=== PATIENT | male | born 1980 | race Caucasian/White ===

== ENCOUNTER 2023-06-13 07:13 | Outpatient (OUT) | payer BC, SELFPAY ==
--- NOTE | 2023-06-13 07:27 | MR_ITS ---
[address] [address] Patient Name: LUÍS MORAN MRN: [id number] date: 1980 Sex: M Assigned Patient Location: MRI Current Patient Location: MRI Accession/Order Number: [id number] Exam Date: 06/13/2023 07:38 Report Date: 06/13/2023 08:29 At the request of: MARCEL BARRERA Procedure: MR lumbar spine wo con EXAM: MR lumbar spine wo con HISTORY: Degenerative Disc Disease Lumbar M51.36 COMPARISON: MRI lumbar spine 04/20/2021. TECHNIQUE: Multiplanar multisequence MR imaging of the lumbar spine was performed without intravenous contrast. FINDINGS: Alignment: Trace retrolisthesis of L3 on L4, minimally progressed from prior. Vertebrae: Vertebral body heights are maintained. No marrow signal abnormalities to suggest neoplasm. Conus medullaris: Conus medullaris terminates in normal position at L1. Normal signal and contour. Degenerative changes: T12-L1: No substantial canal or foraminal stenosis. L1-L2: No substantial canal or foraminal stenosis. L2-L3: No substantial canal or foraminal stenosis. L3-L4: Disc desiccation with mild disc height loss. Tiny left subarticular protrusion which contacts but does not displace or deform the descending left L4 nerve root. Minimal left subarticular recess stenosis. No substantial canal stenosis. Foramina are patent. L4-L5: Disc desiccation with mild to moderate disc height loss. Prior left laminectomy. Tiny left central protrusion. No substantial canal stenosis. The right foramen is patent. Similar mild left foraminal stenosis L5-S1: Similar minimal disc bulge with unchanged right subarticular/foraminal protrusion. Disc does contact the descending right S1 nerve root. No substantial canal stenosis. Moderate right foraminal stenosis at the left foramen is patent Upper Sacrum: No focal lesion identified. Additional comments: Visualized soft tissues of the abdomen are unremarkable. MR/MR lumbar spine wo con IMPRESSION: 1. Interval increase in size of left small subarticular disc protrusion at L3-L4 which contacts but does not displace or deform the descending left L4 nerve root. 2. Stable appearance of right subarticular/foraminal protrusion L5-S1 with disc contacting the right descending S1 nerve root. Moderate right foraminal stenosis. Electronically authenticated by: SIGIFREDO LASSITER Date: 06/13/2023 08:29
== END 2023-06-13 07:14 | disposition home or self-care (01) ==
LOC: MRI 07:15
PROVIDERS: PCP Internal Medicine; Visit Provider Nurse Practitioner Family
DX: M51.36 Other intervertebral disc degeneration, lumbar region (principal); M51.26 Other intervertebral disc displacement, lumbar region
CPT/HCPCS: 72148

== ENCOUNTER 2023-07-02 08:09 | Outpatient (OUT) | payer BC, SELFPAY ==
--- OUTSIDE RECORDS SUMMARY | 2023-07-02 08:12 | XMS_ITS | CCD ---
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 Scientist Name Role Phone Jennifer Muller Unavailable Unavailable Juan Francisco, Maroun Tanus Unavailable Unavailable Adelita Epperson Unavailable Unavailable Juan Francisco, Maroun Tanus Unavailable Unavailable Pelon Head Unavailable Unavail able Adelita Epperson Unavailable Unavailable Juan Francisco, Maroun Tanus Unavailable Unavailable Juan Francisco, Maroun Tanus Unavailable Unavailable Adelita Epperson Unavailable Unavailable ADELITA EPPERSON Primary Care Unavailable Adelita Epperson Primary Care Provider Adelita Epperson Primary Care Provider Dereck Morrow Attending Provider LAKSHMIPATHY ., NARENDRANATH Attending Mell vailable LAKSHMIPATHY ., NARENDRANATH Admitting Mlel vailable JOSE ROBERTO NGUYEN Consulting Unavailable DR ADELITA EPPERSON Primary Care Unavailable HUMAIRA LAO Unavailable LAKSHMIPATHY ., QUETA Consulting Mell vailable DR ADELITA EPPERSON Consulting Unavailable DR ADELITA EPPERSON Primary Care Unavailable LAKSHMIPATHY ., NARENDRANATH Admitting Mell vailable LAKSHMIPATHY ., NARENDRANATH Consulting Mell vailable LAKSHMIPATHY ., NARENDRANATH Attending Mell vailable LAKSHMIPATHY ., NARENDRANATH Attending Mell vailable LAKSHMIPATHY ., NARENDRANATH Admitting Mell vailable LAKSHMIPATHY ., QUETA Consulting Mell vailable DR ADELITA EPPERSON Primary Care Unavailable RUSSELL .SEAN Consulting Unavailable MEGHAN ., DR BERNARDO Tate Admitting Unavailable MEGHAN ., DR BERNARDO Tate Attending Unavailable DR ADELITA EPPERSON Primary Care Unavailable WELLS .SEAN Consulting Unavailable MEGHAN ., DR BERNARDO Tate Admitting Unavailable MEGHAN ., DR BERNARDO Tate Attending Unavailable ZHOU, DR UREÑA Primary Care Unavailable RUSSELL .SEAN Consulting Unavailable MEGHAN ., DR BERNARDO Tate Admitting Unavailable MEGHAN ., DR BERNARDO Tate Attending Unavailable ZHOU, DR UREÑA Primary Care Unavailable ZHOU, DR UREÑA Consulting Unavailable APLING, MARCEL Doherty Attending Unavailable ADELITA EPPERSON Referring Unavailable APLING, MARCEL Doherty Referring Unavailable SURJIT, ANTONIO Doherty Attending Unavailable APLING, MARCEL B Referring Unavailable SURJIT, ANTONIO Doherty Attending Unavailable APLING, MARCEL B Referring Unavailable SURJIT, ANTONIO Doherty Attending Unavailable APLING, MARCEL B Referring Unavailable SURJIT, ANTONIO Doherty Attending Unavailable APLING, MARCEL B Referring Unavailable SURJIT, ANTONIO Doherty Attending Unavailable APLING, MARCEL B Referring Unavailable SURJIT, ANTONIO Doherty Attending Unavailable APLING, MARCEL B Referring Unavailable SURJIT, ANTONIO Doherty Attending Unavailable APLING, MARCEL Doherty Referring Unavailable Adelita Epperson MD Primary Care Provider [phone] Unavailable Unavailable Unavailable Medications Current Medications Medication Drug Class(es) Dates Sig (Normalized) Sig (Original) acetaminophen 250 mg / aspirin 250 mg / caffeine 65 mg oral tablet (1 source) Platelet Aggregation Inhibitor, Nonsteroidal Anti-inflammatory Drug, Central Nervous System Stimulant, Methylxanthine Start: 03-28-2017 take 2 tablets by mouth every four to six hours Aspirin-Acetamino phen-Caffeine Active 2 TAB Oral EVERY 4-6 HOURS March 28, 2017 8:32am acetaminophen 325 mg / HYDROcodone bitartrate 5 mg oral tablet (1 source) Opioid Agonist Start: 05-27-2017 HYDROcodone-aceta minophen (NORCO) 5-325 MG per tablet Cannabinoids (medical cannabis) (1 source) Cannabinoids (medical cannabis) Medicinal Marijuana 0 Active ibuprofen 800 mg oral tablet (1 source) Nonsteroidal Anti-inflammatory Drug take 1 tablet by mouth every six hours as needed ibuprofen 800 MG tablet Take 800 mg by mouth every 6 (six) hours if needed. 0 Active naproxen 375 mg oral tablet (1 source) Nonsteroidal Anti-inflammatory Drug naproxen (NAPROSYN) 375 MG tablet Take 375 mg by mouth as needed for Pain 0 Active Problems Active Problems Problem Classification Problem Date Documented Date Episodic/Chronic Other connective tissue disease (1 source) Other muscle spasm; Translations: [OTHER MUSCLE SPASM] Onset: 07-26-2022 Episodic Other ear and sense organ disorders (1 source) Conductive hearing loss, unilateral, left ear, with unrestricted hearing on the contralateral side; Translations: [Conductive hearing loss, unilateral] Onset: 01-14-2017 02-24-2023 Chronic Other liver diseases (1 source) Nodule of liver; Translations: [Other specified diseases of liver] Onset: 11-01-2022 11-01-2022 Chronic Other nervous system disorders (1 source) Other chronic pain; Translations: [OTHER CHRONIC PAIN] Onset: 07-26-2022 Chronic Other nutritional; endocrine; and metabolic disorders (1 source) Morbid obesity; Translations: [Morbid (severe) obesity due to excess calories] Onset: 11-01-2022 11-01-2022 Chronic Spondylosis; intervertebral disc disorders; other back problems (20 sources) Lumbosacral spondylosis without myelopathy; Translations: [Spondylosis without myelopathy or radiculopathy, lumbar region] Onset: 01-24-2010 Resolved: 02-24-2023 06-24-2017 Chronic Unclassified (1 source) Condctv hear loss, uni, left ear, w unrestr hear cntra side / H90.12(ICD-10) Onset: 09-29-2017 Unclassified (1 source) Unspecified cholesteatoma, left ear / H71.92(ICD-10) Onset: 09-29-2017 Unclassified (1 source) LOW BACK PAIN, UNSPECIFIED; Translations: [LOW BACK PAIN, UNSPECIFIED] Onset: 04-02-2022 Past or Other Problems Problem Classification Problem Date Documented Da te Episodic/Chronic Esophageal disorders (1 source) Laryngopharyngeal reflux; Translations: [Gastro-esophageal reflux disease without esophagitis] Onset: 3 Resolved: 3 02-24-2023 Chronic Other diseases of veins and lymphatics (1 source) Lymphedema; Translations: [Lymphedema, not elsewhere classified] Onset: 9 Resolved: 3 02-24-2023 Chronic Other gastrointestinal disorders (1 source) Chronic constipation; Translations: [Other constipation] Onset: 0 Resolved: 3 02-24-2023 Episodic Other liver diseases (1 source) Elevated liver enzymes level; Translations: [Abnormal levels of other serum enzymes] Onset: 3 11-01-2022 Episodic Other nutritional; endocrine; and metabolic disorders (1 source) Body mass index 30+ - obesity; Translations: [Obesity, unspecified] Onset: 3 Resolved: 3 02-24-2023 Chronic Residual codes; unclassified (1 source) FH: premature coronary heart disease; Translations: [Family history of ischemic heart disease and other diseases of the circulatory system] Onset: 3 11-07-2022 Episodic Spondylosis; intervertebral disc disorders; other back problems (8 sources) Low back pain; Translations: [Muscle spasm of back] Onset: 2 Resolved: 3 Episodic Results Test Name Value Interpretation Reference Range Facility Complete Blood Counton 08-07 Erythrocyte distribution width (RBC) [Ratio] 13.0 % Normal 11.0-15.0 [facility] Comment on above: Performed By: #### L IPD, CBC, CMP #### [facility] [address], [place] [id number] Hematocrit (Bld) [Volume fraction] 46.2 % Normal 38.5-50.0 [facility] Comment on above: Performed By: #### L IPD, CBC, CMP #### [facility] [address], [place] [id number] Hemoglobin (Bld) [Mass/Vol] 15.6 g/dL Normal 13.0-17.1 [facility] Comment on above: Performed By: #### L IPD, CBC, CMP #### [facility] [address], [place] [id number] MCH (RBC) [Entitic mass] 29.8 pg Normal 27.0-33.0 [facility] Comment on above: Performed By: #### L IPD, CBC, CMP #### [facility] [address], [place] [id number] MCHC (RBC) [Mass/Vol] 33.8 g/dL Normal 32.0-36.0 [facility] Comment on above: Performed By: #### L IPD, CBC, CMP #### [facility] [address], [place] [id number] MCV (RBC) [Entitic vol] 88 fL Normal 80-100 [facility] Comment on above: Performed By: #### L IPD, CBC, CMP #### [facility] [address], [place] [id number] Platelet mean volume (Bld) [Entitic vol] 11.20 fL Normal 7.50-12.50 [facility] Comment on above: Performed By: #### L IPD, CBC, CMP #### [facility] [address], [place] [id number] Platelets (Bld) [#/Vol] 231 10*3/uL Normal 140-400 [facility] Comment on above: Performed By: #### L IPD, CBC, CMP #### [facility] [address], [place] [id number] RBC (Bld) [#/Vol] 5.24 10*6/uL Normal 4.20-5.80 [facility] Comment on above: Performed By: #### L IPD, CBC, CMP #### [facility] [address], [place] [id number] RDW-SD 42.1 fL Normal 37.0-50.0 [facility] Comment on above: Performed By: #### L IPD, CBC, CMP #### [facility] [address], [place] [id number] WBC (Bld) [#/Vol] 9.2 10*3/uL Normal 3.8-11.0 [facility] Comment on above: Performed By: #### L IPD, CBC, CMP #### [facility] [address], [place] [id number] Comprehensive Metabolic Pane [facility] 08-07-2021 Albumin [Mass/Vol] 4.7 g/dL Normal 3.6-5.1 [facility] Comment on above: Performed By: #### L IPD, CBC, CMP #### [facility] [address], [place] [id number] Albumin/Globulin [Mass ratio] 2.4 {ratio} Normal 1.0-2.5 [facility] Comment on above: Performed By: #### L IPD, CBC, CMP #### [facility] [address], [place] [id number] ALP [Catalytic activity/Vol] 76 U/L Normal 40-129 [facility] Comment on above: Performed By: #### L IPD, CBC, CMP #### [facility] [address], [place] [id number] ALT [Catalytic activity/Vol] 52 U/L High 9-46 [facility] Comment on above: Result Comment: 03/28 Female reference range changed. Performed By: #### L IPD, CBC, CMP #### [facility] [address], [place] [id number] Anion gap [Moles/Vol] 18 mmol/L Normal 12-20 [facility] Comment on above: Result Comment: Effe ctive 05/03/2019 reference range changed. Performed By: #### L IPD, CBC, CMP #### [facility] [address], [place] [id number] AST [Catalytic activity/Vol] 36 U/L Normal 10-40 [facility] Comment on above: Performed By: #### L IPD, CBC, CMP #### [facility] [address], [place] [id number] Bilirubin [Mass/Vol] 1.27 mg/dL High 0.30-1.20 [facility] Comment on above: Performed By: #### L IPD, CBC, CMP #### [facility] [address], [place] [id number] BUN/CREA 10 Ratio Normal 6-22 [facility] Comment on above: Performed By: #### L IPD, CBC, CMP #### [facility] [address], [place] [id number] Calcium [Mass/Vol] 9.6 mg/dL Normal 8.6-10.2 [facility] Comment on above: Performed By: #### L IPD, CBC, CMP #### [facility] [address], [place] [id number] Chloride [Moles/Vol] 104 mmol/L Normal 98-107 [facility] Comment on above: Performed By: #### L IPD, CBC, CMP #### [facility] [address], [place] [id number] CO2 [Moles/Vol] 22 mmol/L Normal 20-31 [facility] Comment on above: Performed By: #### L IPD, CBC, CMP #### [facility] [address], [place] [id number] Creatinine [Mass/Vol] 1.0 mg/dL Normal 0.7-1.4 [facility] Comment on above: Performed By: #### L IPD, CBC, CMP #### [facility] [address], [place] [id number] eGFRAA 96 mL/min/1.73m2 Normal >60 [facility] Comment on above: Performed By: #### L IPD, CBC, CMP #### [facility] [address], [place] [id number] eGFRNAA 80 mL/min/1.73m2 Normal >60 [facility] Comment on above: Performed By: #### L IPD, CBC, CMP #### [facility] [address], [place] [id number] Globulin (S) [Mass/Vol] 2.0 g/dL Normal 1.9-3.7 [facility] Comment on above: Performed By: #### L IPD, CBC, CMP #### [facility] [address], [place] [id number] Glucose [Mass/Vol] 76 mg/dL Normal 65-99 [facility] Comment on above: Result Comment: For FASTING Glucose --- ADA reference ranges: Normal 65-99 mg/dl Prediabetes 100-125 Diabetes >/= 126 Performed By: #### L IPD, CBC, CMP #### [facility] [address], [place] [id number] Potassium [Moles/Vol] 4.7 mmol/L Normal 3.5-5.5 [facility] Comment on above: Result Comment: Spec imen is hemolyzed. Results may be affected. Performed By: #### L IPD, CBC, CMP #### [facility] [address], [place] [id number] Protein [Mass/Vol] 6.7 g/dL Normal 6.1-8.1 [facility] Comment on above: Performed By: #### L IPD, CBC, CMP #### [facility] [address], [place] [id number] Sodium [Moles/Vol] 139 mmol/L Normal 135-146 [facility] Comment on above: Performed By: #### L IPD, CBC, CMP #### [facility] [address], [place] [id number] Urea nitrogen [Mass/Vol] 11 mg/dL Normal 7-25 [facility] Comment on above: Performed By: #### L IPD, CBC, CMP #### [facility] [address], [place] [id number] Lipid Panelon 08-07-2021 Cholesterol [Mass/Vol] 154 mg/dL Normal 125-200 [facility] Comment on above: Result Comment: Low risk < 200mg/dL Borderline risk 201-239 mg/dl High risk > or equal to 240 Performed By: #### L IPD, CBC, CMP #### [facility] [address], [place] [id number] Cholesterol in HDL [Mass/Vol] 40 mg/dL Low >40 [facility] Comment on above: Result Comment: High Cardiovascular Risk HDL <40 mg/dL Low Cardiovascular Risk HDL > or equal to 60 mg/dl Performed By: #### L IPD, CBC, CMP #### [facility] [address], [place] [id number] Cholesterol in LDL [Mass/Vol] 88 mg/dL Normal [facility] Comment on above: Result Comment: LDL ATP III CLASSIFICATION LDL less than 100 mg/dl Optimal LDL 100-129 mg/dl Near or above optimal LDL 130-159 Borderline high LDL 160-189 High LDL greater than 189 mg/dl Very High Performed By: #### L IPD, CBC, CMP #### [facility] [address], [place] [id number] Cholesterol in VLDL [Mass/Vol] 26 mg/dL Normal [facility] Comment on above: Performed By: #### L IPD, CBC, CMP #### [facility] [address], [place] [id number] Cholesterol.total/C holesterol in HDL [Mass ratio] 4 {ratio} Normal [facility] Comment on above: Performed By: #### L IPD, CBC, CMP #### [facility] [address], [place] [id number] Triglyceride [Mass/Vol] 129 mg/dL Normal 30-150 [facility] Comment on above: Result Comment: TRIG ATPIII CLASSIFICATIONS TRIG less than 150 mg/dl Normal TRIG 150-199 mg/dl Borderline High TRIG 200-500 mg/dl High TRIG greather than 500 mg/dl Very High Performed By: #### L IPD, CBC, CMP #### [facility] [address], [place] [id number] NR MR L-SPINE WO/W CONTRASTo n 01-13-2019 NR MR L-SPINE WO/W CONTRAST Patient Name: LUÍS CALHOUN STUDY: MR L-SPINE WO/W CONTRAST; 01/13/2019 10:05 am INDICATION: Radiculopathy, lumbar region. History of laminectomy. Right leg pain and numbness. COMPARISON: None. ACCESSION NUMBER(S): [id number] ORDERING CLINICIAN: ADELITA HENRY TECHNIQUE: Multisequential MR images of the lumbar spine are performed in the sagittal and axial plane. The study is supplemented with sagittal and axial post gadolinium T1 weighted sequences. 20 cc of intravenous MultiHance was utilized. FINDINGS: The lumbar vertebral heights and AP alignment are within normal limits. There is disc desiccation and disc space narrowing at L4-5 and to lesser extent L3-4. There is no bone marrow edema. There is no pathologic marrow enhancement. The conus medullaris is of normal morphology and signal and descends to the level of the L1-2 disc space. No abnormal enhancement is identified within the conus. Axial images are performed through the lumbar disc spaces from the mid T1 level through S1. The L1-2 disc space level demonstrates mild facet arthrosis on the left though is otherwise unremarkable. The L2-3 disc space level demonstrates mild facet arthrosis on the left though is otherwise unremarkable. The L3-4 disc space level demonstrates mild bilateral facet arthrosis and mild ligamentum flavum hypertrophy. There is minimal bulging disc with posterior annular tear at the midline. There is no significant central canal or neural foraminal stenosis. The L4-5 disc space level demonstrates previous left laminectomy. There is mild bulging disc asymmetric to the left with flattening of the anterior thecal sac. There is no significant neural foraminal stenosis. The L5-S1 disc space level demonstrates mild bilateral facet arthrosis. There is small extruded disc on the right which may contact the right S1 nerve root. There is no displacement of the nerve root. There is no mass effect upon the transiting L5 nerve root. There is some disc encroachment on the caudal aspect of the right neural foramen. There is no significant central canal narrowing. IMPRESSION: Small extruded disc at L5-S1 on the right which may contact the right S1 nerve root. Mild discogenic degenerative changes at L3-4 and L4-5 with minimal bulging disc. There is no significant central canal or neural foraminal stenosis at these levels. Status post left laminectomy at L4-5. No acute osseous abnormality. Electronically signed by: BJ MUNGUIA MD Normal [facility] XR LUMBAR SPINE (MIN 4 VIEWS )on 12-17-2018 XR LUMBAR SPINE (MIN 4 VIEWS) Radiology exam is complete. No Radiologist dictation. Please follow up with ordering provider. Final result Normal [facility] Radiology exam is complete. No Radiologist dictation. Please follow up with ordering provider. [facility], [place] Established Visit (Otolaryng ology)on 03-02-2018 Established Visit (Otolaryngology) Chief ComplaintNew patient suspected cholesteatoma History of Present IllnessHere today for mastoid bowl cleaning and follow up. Denies any interval otologic complaints since last being seen. Recall: 37 year old male referred by Dr. Head. When he was a child in [place] had a chronically draining ear and underwent a mastoidectomy. Dr. Head performed a tympanoplasty for perforation; suspected to have cholesteatoma and thus sent for further evaluation. CT scan shows thickening of soft tissue in left mastoid cavity along anterior bony canal with erosion of underlying bony lining, middle ear clear and ossicles are absent.Audiogram at last visit showed left sided moderate CHL at low and high frequencies, normal at 2000 hz. WRS 100% bilaterally. Right type A tympanogram left type B with high volumes. Review of Systems ENT and Constitutional systems have been reviewed and are negative for complaint except what is stated in the HPI and/or Past Medical History. 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) (H71.92) Conductive hearing loss of left ear with unrestricted hearing of right ear (389.05) (H90.12) Past Medical History No pertinent past medical history Surgical History History of Ear Surgery Family History Family history of diabetes mellitus (V18.0) (Z83.3) Family history of Heart problem Social History Former consumption of alcohol (V11.3) (Z87.898) Lives with family Smokes cigarettes (305.1) (F17.210) Allergies No Known Allergies Recorded By: Jeri Chacon; 09/29/2017 11:43:10 AM Current Meds Ciprodex 0.3-0.1 % Otic Suspension; INSTILL 3 DROPS IN AFFECTED EAR TWICEDAILY FOR 10 DAYS;Therapy: 29Sep2017 to (Evaluate:09Oct2017); Last Rx:29Sep2017 Ordered Rx By: Dale Chicas; Dispense: 10 Days ; #:1 X 7.5 ML Bottle; Refill: 0;For: Cholesteatoma of left ear; FRANCES = N; Record; Last Updated By: Nathalie Beasley; 09/30/2017 11:39:32 AM Physical ExamCONSTITUTIONAL: No acute distressVOICE: No hoarseness or other abnormalityRESPIRATION : Breathing comfortably, no stridorCV: No clubbing/cyanosis/henry a in handsRIGHT EAR: Normal external ear and post auricular area, no visible lesions, external auditory canal patent, tympanic membrane with patent tympanostomy tube, small crust along attic area, with retraction, possible early cholesteatoma. no signs of mass, effusion, or infection within the middle earLEFT EAR: Normal external ear and post auricular area, no visible lesions, external auditory canal patent, s/p CWD mastoidectomy. Using the microscope and suctions, large amount of debris were suctioned out and cleaned from his cavity. There are no signs of active infection or visible recurrent cholesteatoma. The facial ridge slightly high but I was able to clean his bowl completely.NOSE: External nose midline, anterior rhinoscopy is normal with limited visualization to the anterior aspect of the interior turbinates, no bleeding or drainage, no lesionsORAL CAVITY/OROPHARYNX/LIPS : Normal mucous membranes, normal floor of mouth/tongue/OP, no masses or lesionsPHARYNGEAL SOLOMON: No masses or lesionsNECK/LYMPH: No LAD, no thyroid masses, trachea midlineSKIN: Neck and facial skin is without scar or injuryPSYCH: Alert and oriented with appropriate mood and affect ProcedureProcedure: cerumen removal. ear cleaning due to otorrhea. Indication: tympanic membrane(s) could not be visualized, otorrhea from chronic otitis media and otorrhea from debriding after mastoidectomy. Location: in the left ear. Procedure Note: The procedure was performed by the Provider. Visualization Instrument: a microscope was placed in the ear canal(s) to visualize the ear canal debris. a speculum was placed in the ear canal(s) to visualize the ear canal debris. Complications: There were no complications. Patient instructions: dry ear precautions. Diagnoses/Problems Conductive hearing loss of left ear with unrestricted hearing of right ear (389.05) (H90.12) Encounter for debridement of left postmastoidectomy cavity (383.30) (H95.192) Provider ImpressionsLeft CHLLeft cholesteatomas/p left mastoid cavityRecommendations- No evidence of active cholesteatoma-Debridem ent every 4-5 months, can be done by Dr Head I personally examined and interviewed the patient along with Dr Carson I agree with the plan outlined above. Patient Discussion/SummaryWelc ome to Dr. Padilla clinic. We are here to assist you through your ENT care at [facility].Dr. Chicas is an Ear surgeon. This means that he specializes in taking care of patients with complex ear problems.Dr. Chicas's office number is [phone]. While you may see him at a satellite office, she has a team committed to help meet your healthcare needs at [facility]'s main campus. This number is the most direct way to communicate with the office.Audra is Dr. Padilla typing secretary and she answers the office phone from 8am-4pm Fri-Fri. She can help you with many general questions and information. Questions that she cannot answer will be directed to the appropriate staff. You may need to leave a message. In this case, someone from the team will call you back.Jeri is Dr. Padilla primary nurse and can be reached by calling the office. Jeri is in clinic with Dr. Padilla on Mondays, Tuesdays, most Wednesdays, and . Non-urgent calls will be returned on non-clinic days typically Fridays.Sometimes, other team members will also be involved in your care. These people may include dieticians, social workers, speech therapists, relay shop tester, neurologist, and physical therapist. Dr. Chicas will provide these referrals as needed. Please let him know if you would like to request a specific referral.For your convenience, Dr. Chicas sees patients at several [facility] locations including [facility], [facility], and [facility]. While we try to make your appointments as convenient as possible, occasionally a visit to another location may be necessary to provide the best care for you. We look forward to working with you to meet your healthcare goals.Dr. Chicas makes every effort to run on time for your appointments. Therefore, if you are more than 30 minutes late unrelated to a scan or another appointment such therapy or audiology, your appointment will need to be rescheduled to another day. We appreciate your understanding. Signatures Electronically signed by : Dale Chicas MD; Mar 02 2018 2:05PM EST (Author) Normal [facility] Initial Visit (Otolaryngolog y)on 09-29-2017 Initial Visit (Otolaryngology) Chief ComplaintNew patient suspected cholesteatoma History of Present Cwcajim36 year old male referred by Dr. Head. When he was a child in [place] had a chronically draining ear and underwent a mastoidectomy. Dr. Head performed a tympanoplasty for perforation; suspected to have cholesteatoma and thus sent for further evaluation. CT scan shows thickening of soft tissue in left mastoid cavity along anterior bony canal with erosion of underlying bony lining, middle ear clear and ossicles are absent.Audiogram shows left sided moderate CHL at low and high frequencies, normal at 2000 hz. WRS 100% bilaterally. Right type A tympanogram left type B with high volumes. Review of SystemsA comprehensive 10-point review of systems was obtained including constitutional, neurological, HEENT, pulmonary, cardiovascular, genito-urinary, and other pertinent systems and was negative except as noted in the HPI. Past Medical History No pertinent past medical history Surgical History History of Ear Surgery Family History Family history of diabetes mellitus (V18.0) (Z83.3) Family history of Heart problem Social History Former consumption of alcohol (V11.3) (Z87.898) Lives with family Smokes cigarettes (305.1) (F17.210) Allergies No Known Allergies Recorded By: Jeri Chacon; 09/29/2017 11:43:10 AM Current Meds No Reported Medications Recorded FRANCES = N; ; Last Updated By: Ginny Singleton; 09/29/2017 11:43:10 AM Vitals Vital Signs Recorded: 29Sep2017 11:23AMHeart [id number] drss37Yukizw2 ft 2 kkWawnbg306 lb BMI Cqjtmlprde33.65BSA Calculated2.59 Physical ExamCONSTITUTIONAL: No acute distressVOICE: No hoarseness or other abnormalityRESPIRATION : Breathing comfortably, no stridorCV: No clubbing/cyanosis/henry a in handsEYES: EOM intact, sclera clearNEURO: Alert and oriented times 3, Cranial nerves II-XII grossly intact and symmetric bilaterallyHEAD AND FACE: Symmetric facial features, no masses or lesionsSALIVARY GLANDS: Parotid and submandibular glands normal bilaterallyRIGHT EAR: Normal external ear and post auricular area, no visible lesions, external auditory canal patent, tympanic membrane intact, small crust along attic area, with retraction, possible early cholestatoma.no signs of mass, effusion, or infection within the middle earLEFT EAR: Normal external ear and post auricular area, no visible lesions, external auditory canal patent, s/p CWD mastoidectomy changes with open cavity and debris which was removed. There is an inclusion epithelial cyst along the anterior bony canal which was marsupalized in the office today.NOSE: External nose midline, anterior rhinoscopy is normal with limited visualization to the anterior aspect of the interior turbinates, no bleeding or drainage, no lesionsORAL CAVITY/OROPHARYNX/LIPS : Normal mucous membranes, normal floor of mouth/tongue/OP, no masses or lesionsPHARYNGEAL SOLOMON: No masses or lesionsNECK/LYMPH: No LAD, no thyroid masses, trachea midlineSKIN: Neck and facial skin is without scar or injuryPSYCH: Alert and oriented with appropriate mood and affect ProcedureProcedure: cerumen removal. ear cleaning due to otorrhea. Indication: tympanic membrane(s) could not be visualized, otorrhea from chronic otitis media and otorrhea from debriding after mastoidectomy. Location: in the left ear. Procedure Note: The procedure was performed by the Provider. Visualization Instrument: a microscope was placed in the ear canal(s) to visualize the ear canal debris. a speculum was placed in the ear canal(s) to visualize the ear canal debris. Complications: There were no complications. Patient instructions: dry ear precautions. 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) Orders Start: Ciprodex 0.3-0.1 % Otic Suspension; INSTILL 3 DROPS IN AFFECTED EARTWICE DAILY FOR 10 DAYS Rx By: Dale Chicas; Dispense: 10 Days ; #:1 X 7.5 ML Bottle; Refill: 0;For: Cholesteatoma of left ear; FRANCES = N; Record; Last Updated By: Jeri Chacon; 09/29/2017 11:43:10 AM Provider ImpressionsLeft CHLLeft cholesteatomaLeft epithelial inclusion cystLeft ossicular discontinuityRecommend ations-Debridement every 6 months, epithelial inclusion cyst marsupialized today -Bacitracin soaked cotton ball placed today-Ciprodex drops x10 days-Will reassess in 4-5 months may require further revision/debridement in OR I personally examined and interviewed the patient along with Dr Zambrano. I agree with the plan outlined above. Patient Discussion/SummaryWelc ome to Dr. Randy queen. We are here to assist you through your ENT care at [facility].Dr. Chicas is an Ear surgeon. This means that he specializes in taking care of patients with complex ear problems.Dr. Chicas's office number is [phone]. While you may see him at a satellite office, she has a team committed to help meet your healthcare needs at [facility]'s main campus. This number is the most direct way to communicate with the office.Audra is Dr. Padilla typing secretary and she answers the office phone from 8am-4pm Mon-Fri. She can help you with many general questions and information. Questions that she cannot answer will be directed to the appropriate staff. You may need to leave a message. In this case, someone from the team will call you back.Jeri is Dr. Padilla primary nurse and can be reached by calling the office. Jeri is in clinic with Dr. Padilla on Mondays, Tuesdays, most Wednesdays, and . Non-urgent calls will be returned on non-clinic days typically Fridays.Sometimes, other team members will also be involved in your care. These people may include dieticians, social workers, speech therapists, relay shop tester, neurologist, and physical therapist. Dr. Chicas will provide these referrals as needed. Please let him know if you would like to request a specific referral.For your convenience, Dr. Chicas sees patients at several [facility] locations including [facility], [facility], and [facility]. While we try to make your appointments as convenient as possible, occasionally a visit to another location may be necessary to provide the best care for you. We look forward to working with you to meet your healthcare goals.Dr. Chicas makes every effort to run on time for your appointments. Therefore, if you are more than 30 minutes late unrelated to a scan or another appointment such therapy or audiology, your appointment will need to be rescheduled to another day. We appreciate your understanding. End of Encounter Meds Ciprodex 0.3-0.1 % Otic Suspension; INSTILL 3 DROPS IN AFFECTED EAR TWICEDAILY FOR 10 DAYS;Therapy: 29Sep2017 to (Evaluate:09Oct2017); Last Rx:29Sep2017; Status: ACTIVE -Retrospective By Protocol Authorization Ordered [facility] Encounters Encounter Date Encounter Type Care Provider Facility Start: 06-03-2023 Telephone encounter Marcel cameron GLUE MOUNTER OPERATOR Work Phone: [facility] Start: 06-02-2023 End: 06-03-2023 ambulatory ANTONIO B SURJIT Not Available Start: 05-28-2023 End: 05-28-2023 ambulatory ANTONIO B SURJIT Not Available Start: 05-21-2023 End: 05-21-2023 ambulatory ANTONIO B SURJIT Not Available Start: 05-19-2023 End: 05-19-2023 ambulatory ANTONIO B SURJIT Not Available Start: 2023 End: 2023 ambulatory ANTONIO B SURJIT Not Available Start: 05-12-2023 End: 05-13-2023 ambulatory ANTONIO B SURJIT Not Available Start: 05-08-2023 End: 05-08-2023 ambulatory ANTONIO B SURJIT Not Available Start: 05-05-2023 End: 05-06-2023 ambulatory MARCEL HALEY Not Available Start: 09-05-[address] ADELITA EPPERSON Facility :[facility] Start: 08-06-2022 End: 08-06-2022 ambulatory QUETA ZUNIGAMIPATHRandall . Facility:[facility] Start: 07-23-2022 End: 07-24-2022 ambulatory NARENDRANRASHEL BERNARDSHMIPATHY . Facility:[facility] Start: 03-28-2022 End: 03-29-2022 ambulatory SEAN WELLS . Facility:[facility] Start: 01-03-2022 End: 01-04-2022 ambulatory SEAN WELLS . Facility:[facility] Start: 10-04-2021 End: 10-05-2021 ambulatory SEAN WELLS . Facility:[facility] Start: 04-10-2020 End: 04-10-2020 Patient encounter procedure Adelita Epperson [facility] Start: 12-17-2018 End: 12-20-2018 Patient encounter procedure ADELITA EPPERSON [facility] Start: 12-17-2018 End: 12-19-2018 Subsequent hospital visit by physician [facility] Comment on above: Low back pain, unspe cified back pain laterality, unspecified chronicity, with sciatica presence unspecified Start: 03-02-2018 Patient encounter procedure Dale Chicas Facility:[id number] Start: 09-29-2017 Patient encounter procedure Paojonathan Chicas Facility:[id number] Procedures Date Procedure Procedure Detail Performing Clinician Start: 12-17-2018 Radex spine lumbosac ral minimum 4 views ADELITA EPPERSON Start: 12-17-2018 Radex spine lumbosac ral minimum 4 views Adelita Henry Work Phone: Start: 09-29-2017 Follow-up visit Plan of Treatment Date Care Activity Detail Author Start: 08-26-2023 End: 08-26-2023 Patient encounter procedure 08/26/2023 3:45 PM EDT Office Visit [facility] [address] [place] [id number] Al Chi S, DO [address] [place] [address] [facility] Start: 07-14-2023 End: 07-14-2023 Patient encounter procedure 07/14/2023 8:45 AM EDT Office Visit [facility] [address] [place] [address] Adelita Epperson MD [address] [place] [address] [facility] Start: 06-23-2023 End: 06-23-2023 Patient encounter procedure 06/23/2023 8:00 AM EST Office Visit [facility] [address] [place] [id number] Marcel Haley GLUE MOUNTER OPERATOR [address] [place] [address] [facility] Start: 06-16-2023 End: 06-16-2023 ambulatory 06/16/2023 4:15 PM EST Treatment [facility] [address] [facility] [place] [place] [address] Antonio Solomon, PT [address] [facility] [place] [address] [facility] Start: 06-09-2023 End: 06-09-2023 ambulatory 06/09/2023 4:30 PM EST Treatment [facility] [address] [facility] [place] [address] Antonio Sloomon, PT [address] [facility] [place] [address] [facility] Start: 06-04-2023 End: 06-04-2024 MR Lumbar spine WO contrast MR lumbar spine wo contrast Imaging Routine DDD (degenerative disc disease), lumbar Lumbar herniated disc Expected: 06/04/2023 (Approximate), Expires: 06/04/2024 [facility] Work Phone: Comment on above: Expected: 06/04/2023 (Approximate), Expires: 06/04/2024 Start: 12-27-2022 Influenza vaccination Influenza Vacc ine (#1) [facility] Start: 12-27-2018 Influenza vaccination Flu vaccine (# 1) [place], [place] Start: 1999 DTaP/Tdap/Td vaccine (1 - Tdap) DTaP/Tdap/Td vaccine (1 - Tdap) [place] Start: 1995 HIV screen HIV screen [place], [place] Start: 1993 Varicella Vaccine (1 of 2 - 13+ 2-dose series) Varicella Vaccine (1 of 2 - 13+ 2-dose series) [place] Start: 1986 Pneumococcal 0-64 ye ars Vaccine (1 of 1 - PPSV23) Pneumococcal 0-64 years Vaccine (1 of 1 - PPSV23) [place], [place] Payers Date Payer Category Payer Unknown BCBS BCBS xxxxxx [id number] 2020-Present [phone] [address] [place] [address] [id number] 2017 Private Health Insurance [id number] 2017 Private Health Insurance [employer] A ETNA xxxxxxxxxx 2017-Present [phone] [address] [place] [address] xxxxxxxxxx [id number] 1980 Unknown [id number] 2.16.840.1.941127.3.579.2 .356 1980 Unknown [id number] 2.16.840.1.503747.3.579.2 .356 1980 Unknown [id number] 2.16.840.1.204440.3.579.2 .356 1980 Unknown [id number] 2.16.840.1.873956.3.579.2 .185 1980 Unknown [id number] 2.16.840.1.161113.3.579.2 .593 1980 Unknown [id number] 2.16.840.1.388808.3.579.2 .593 1980 Unknown [id number] 2.16.840.1.051422.3.579.2 .593 1980 Unknown [id number] 2.16.840.1.865323.3.579.2 .593 1980 Unknown [id number] 2.16.840.1.393122.3.579.2 .593 1980 Unknown [id number] 2.16.840.1.097093.3.579.2 .593 1980 Unknown [id number] 2.16.840.1.972855.3.579.2 .9 1980 Unknown [id number] 2.16.840.1.760422.3.579.2 .1259 1980 Unknown [id number] 2.16.840.1.176254.3.579.2 .9 1980 Unknown [id number] 2.16.840.1.324768.3.579.2 .1259 1980 Unknown [id number] 2.16.840.1.164297.3.579.2 .1259 1980 Unknown [id number] 2.16.840.1.709242.3.579.2 .1259 1980 Unknown [id number] 2.16.840.1.998983.3.579.2 .9 1980 Unknown [id number] 2.16.840.1.824682.3.579.2 .9 1980 Unknown [id number] 2.16.840.1.455745.3.579.2 .1259 1959 Unknown [id number] Self-pay Self Pay [id number] Social History Date Type Detail Facility Start: 01-16-2018 End: 02-25-2023 Tobacco smoking status NHIS [facility] Start: 01-16-2018 End: 11-07-2022 [facility] Start: 1980 Sex Assigned At Male [facility] History of tobacco use Cigarette Smoker [facility] Start: 11-07-2022 End: 02-25-2023 Cigarettes smoked current (pack per day) - Reported 0.5 [facility] Start: 02-25-2023 Tobacco use and exposure Smoke less tobacco non-user [facility] Start: 05-05-2023 Alcohol intake Lifetime non-d janice (finding) [facility] Start: 11-06-2022 Alcohol Comment caffeine:Type: energy drink 3-- 16 0z cans per day [facility] Start: 10-10-2022 Gender identity Identifies as male gender (finding) [facility] Start: 10-10-2022 Sexual orientation Choose not to dis close [facility] Goals Date Patient Goal Desired Activity /State Telephone encounter Note 06-03-2023 Telephone Encounter - Nida Gross - 06/03/2023 2:47 PM EST Note Date & Type Note Facility 06-03-2023 Telephone encount er Note Pt called back and would like to do MRI at [facility]. [facility] Note 06-03-2023 Telephone Encounter - Nida Gross - 06/03/2023 2:47 PM EST Note Date & Type Note Facility 06-03-2023 Miscellaneous Notes Formattin g of this note might be different from the original. Pt called back and would like to do MRI at [facility]. documented in this encounter [facility] Consultation note 07-23-2022 Note Date & Type Note Facility 07-23-2022 Note PAIN MANAGEMENT CONS ULTATION CONSULTATION DATE: 07/23/2022 ADDENDUM: The dictation mentions denervation of the L4-5, L5-S1 facet joint under fluoroscopic guidance by using radiofrequency ablation on the left side. The dictation should read: Proceed with radiofrequency ablation of the L2-3, L4-5 levels under fluoroscopic guidance on the left side. [facility] Consultation note 07-23-2022 Note Date & Type Note Facility 07-23-2022 Note PAIN MANAGEMENT CONS ULTATION CONSULTATION DATE: 07/23/2022 ADDENDUM: The dictation mentions denervation of the L4-5, L5-S1 facet joint under fluoroscopic guidance by using radiofrequency ablation on the left side. The dictation should read: Proceeded with radiofrequency ablation of the L2-3, L4-5 levels under fluoroscopic guidance on the left side. [facility] Consultation note 07-23-2022 Note Date & Type Note Facility 07-23-2022 Note CONSULTATION CONSULTATION DATE: 07/23/2022 TO: Dr. Epperson HISTORY: Patient returns today complaining of 5-7/10 pain in his lower back on his left side, described as sharp pain, increased with activity such as standing, walking and performing transitioning maneuvers. His most recent flare started approximately 6-8 weeks ago. He reports the onset occurred spontaneously. Increased gradually prior to this date, which has altered his quality of life, level of functioning and sleep pattern. His LESLEY or Oswestry Disability Index is 21. He denied any change in bowel and bladder habits or new sensorimotor change in the lower extremities. He feels the most comfortable in the semi-recumbent position, and his pain gets worse with sitting, walking, performing transitioning maneuvers. CURRENT MEDICATIONS: Includes tizanidine which he reports is ineffective. THC gummies which help him sleep and he has been increasing use of Excedrin for his pain, which he has been taking for at least the last 6-8 weeks' time. Despite the increasing dose of Excedrin, activity modification, a home exercise program, he reports the pain has altered his quality of life, level of function and his sleep pattern. EXAM: Notable for patient having no clinical radiculopathy or myelopathy involving his lower extremities. Did have severe pain with lumbar facet joint loading maneuvers including on the left side, with associated myofascial spasm. IMPRESSION: Patient appears to have chronic pain secondary to lumbosacral spondylosis, facet loading pain clinically on the left side at L4-5, L5-S1, with associated myofascial spasm. RECOMMENDATIONS: I recommend he discontinue Zanaflex secondary to ineffectiveness. We will trial him on baclofen 10 mg pills 1-2 at bedtime. He is to proceed with a rhizotomy using radiofrequency ablation of the left L3, L4 and L5 medial branches. His last rhizotomy was performed on 06/05/2021 on the right side; on the left side on 05/22/2021, denervating the L4-5, L5-S1 facet joints. Since it has been less than two years, I have recommended proceeding directly to an ablation. I have gone over the procedure with this patient. All his questions were answered. He agrees to proceed with the outlined plan. [facility] Consultation note 03-28-2022 Note Date & Type Note Facility 03-28-2022 Note CONSULTATION CONSULTATION DATE: 03/28/2022 HISTORY OF PRESENT ILLNESS: This is a 41-year-old gentleman who returns to the clinic for a three month follow up for his chronic lower back pain. He was last seen on 01/03/2022 which, at that time, he was experiencing some muscle spasms in his lower back. His last procedures were bilateral lumbar RFAs in May of 2021. He was prescribed Mobic 50 mg q.h.s and was shown stretches. 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 He reports 0/10 pain today and is feeling great. He is no longer taking the Motrin. He will just occasionally take an ibuprofen. Prolonged standing and walking, as well as bending will aggravate his pain to a low level of 2/10. He will occasionally use heat with his stretches. Overall, he is doing wonderful/great. Patient's REVIEW OF SYSTEMS / PAST MEDICAL HISTORY / ALLERGIES and IMAGES have been reviewed and they are noted on the chart. PHYSICAL EXAM: VITAL SIGNS: Blood pressure is 157/90. Heart rate is 79. Temperature is 97.8. He is 6'2 and weighs 135 kg. GENERAL APPEARANCE: Pleasant, appropriate, no acute distress. FOCUSED EXAM - BACK: Range of motion is functional in lateral rotation and flexion/extension. No reproduction of spinal axial pain. Paravertebral muscles are non-spasmodic. Analy's point is non-tender bilaterally. Negative FABERs and compression tests. MUSCULOSKELETAL: Good muscle tone. Motor is 5/5 bilaterally. Patient walks with a stable, unassisted gait. NEUROLOGICALLY: Radicular sensory is intact. Patient is cognitively intact. Bilateral patellar and Achilles reflexes are +2. DIAGNOSIS: Lumbar degenerative disc disease, lumbar spondylosis and chronic lower back pain. PLAN: Overall, the patient is doing very well. Our recommendation is to continue with heat, stretches and ibuprofen on a p.r.n. basis. Patient is to return to the clinic in six months' time for re-evaluation. [facility] Consultation note 01-03-2022 Note Date & Type Note Facility 01-03-2022 Note CONSULTATION CONSULTATION DATE: 01/03/2022 HISTORY OF PRESENT ILLNESS: This is a 41-year-old gentleman, returning to the clinic for a three month follow up for his chronic lower back pain, left leg pain. He was last seen in September of this year when, at that time, his pain was rated at a 0. Today he rates it a 4/10 and increases with activity. For the past week, he has had left lower lumbar pain that radiates towards his left hip. It is increased with physical activity. At his last appointment, he was instructed to take 800 mg of magnesium to help with his left lower leg spasms. Patient states increasing the dose made the spasms worse; therefore, he stopped the magnesium altogether and the cramped ceased. Activities such as twisting, turning, pushing, pulling, lying down, lifting and housework aggravate his pain. Alternating heat and ice decreases his pain. Current medications include ibuprofen 600 mg p.r.n., tizanidine 4 mg q.h.s. and THC gummies. Patient denies any new vasomotor changes. Patient's REVIEW OF SYSTEMS / PAST MEDICAL HISTORY / ALLERGIES and IMAGES have been reviewed and they are noted on the chart. PHYSICAL EXAM: Blood pressure is 140/93. Heart rate is 68. Temperature is 97. 7. He is 6'2 , weighs 133.7 kg. GENERAL APPEARANCE: Pleasant, appropriate, in no acute distress. FOCUSED EXAM - BACK: Range of motion is functional in lateral rotation and flexion/extension. No reproduction of spinal axial pain upon lumbar compression. Trigger point identified to left lower erector spinae muscle. Positive jump response. Compression over this reproduces the patient's pain pattern. Analy's point non-tender bilaterally. Negative FABERs and compression. MUSCULOSKELETAL: Motor is intact, 5/5 bilaterally. Patient ambulates with a steady gait. No assistive device. NEUROLOGICAL: Radicular sensory is intact. Bilateral patellar reflexes are +2. DIAGNOSIS: Lumbar spasms, lumbar spondylosis. PLAN: Two address his inflammatory pain, the patient will be placed on Mobic 15 mg q.p.m. The patient does work third shift and was instructed to take it prior to work. Trigger point injection was offered to the patient which he declined. He is to use his menthol heat rub in addition to a heat source and stretches to his left lumbar region. Patient is in agreement with this plan. He will be followed up in three months' time, unless otherwise indicated. [facility] Consultation note 10-04-2021 Note Date & Type Note Facility 10-04-2021 Note CONSULTATION CONSULTATION DATE: 10/04/2021 This is a 41-year-old gentleman who returns to the clinic for a 3-month follow-up for his chronic back pain. His last intervention was May 2021 which was lumbar RFAs bilaterally which he is continuing to feel good benefit from. He reports his pain is 0 out of 0 today. Approximately a week ago he made an abrupt move, lifting something at work and he had a shoot pain down his left lumbar area to his left lower leg. The patient continued to do stretches and stated it took approximately four days for it calm down. Occasionally he does feel lower lumbar muscle spasms. He does take tizanidine 4 mg q.h.s. in addition to THC gummies which were recommended by his PCP. The patient does have trouble sleeping at night and states the gummies have helped. He does use heat occasionally on a daily basis which does help his muscle spasms. He denies any new pain pattern or radicular pain. REVIEW OF SYSTEMS, PAST MEDICAL HISTORY, ALLERGIES AND IMAGES: Have been reviewed and noted in the chart. PHYSICAL EXAM: VITAL SIGNS: Blood pressure 135/86, heart rate is 78, temperature is 97.7. Height is 188 cm, weighs 137.2 kg. GENERAL APPEARANCE: Pleasant, appropriate and in no acute distress. FOCUSED EXAM: BACK: Range of motion is functional in lateral rotation and flexion and extension. No reproduction of spinoaxial pain to direct compression of the facets. Bilateral paravertebral muscles are taut but non-spasmodic, no particular triggers are identified. Analy's point is non-tender bilaterally. MUSCULOSKELETAL: Good muscle tone, motor is intact; 5 out of 5 strength right lower extremity, 4 out of 5 left lower extremity. The patient does not use assistive device and has a stable and steady gait. NEUROLOGICAL: Patchy hypesthesia noted along L5, S1 dermatome to the left to the level of the mid-calf DIAGNOSIS: Lumbar degenerative disk, lumbar radiculitis, lumbar spondylosis and chronic lower back pain and perivertebral spasms PLAN: I instructed the patient to begin magnesium gluconate 800 mg q.h.s. in addition to xxqk-[id number]-[id number] ibuprofen 600 mg q.a.m. before work. Daily stretching and the use of heat were encouraged to aid with the spasms. We discussed about different vitamin regimens and the patient was willing to try. He will be followed up in the clinic in three months' time unless otherwise indicated. The patient agrees with the plan of care. [facility] Signed and Approved by: SEAN WELLS . 10/11/2021 16:03:00 [facility] Evaluation note Note Date & Type Note Facility Evaluation note Diagnosis DDD (degenerative disc disease), lumbar- Primary Degeneration of lumbar or lumbosacral intervertebral disc Lumbar herniated disc documented in this encounter [facility] Summary Purpose Family History No Family History Records FoundNo Family History Records FoundNo Family History Records FoundNo Family History Records FoundNo Family History Records FoundNo Family History Records FoundNo Family History Records Found Advance Directives Documents on File Type Date Recorded Patient Care Program Resident Expl anation Advance Directives and Living Will Power of Production Statistical Clerk Advance Directive Response Recorded Date/ Time Advance Directives No December 8:43am Assessments Diagnosis Low back pain, unspecified back pain laterality, unspecified chronicity, with sciatica presence unspecified Chief Complaint and Reason for Visit Chief Complaint Back Pain Reason for Referral Specialty Diagnoses / Procedures Referred By Selvin garcia Referred To Contact Diagnoses DDD (degenerative disc disease), lumbar Lumbar herniated disc Procedures MR lumbar spine wo Marcel Schmidt, GLUE MOUNTER OPERATOR [address] [facility] [address] [place] [address] Referral ID Status Reason Start Date Expiration Date V isits Requested Visits Authorized [id number] Pending Review 06/04/2023 12/01/2023 1 1 Additional Source Comments (unrecognized sect ion and content) No Status Records FoundNo Status Records FoundNo Status Records FoundNo Status Records FoundNo Status Records FoundNo Status Records FoundNo Status Records Found INFORMATION SOURCE (unrecogn ized section and content) DATE CREATED AUTHOR 04/05/2018 [facility] DATE CREATED AUTHOR AUTHOR'S ORGANIZ ATION 04/05/2018 [facility] DATE CREATED AUTHOR AUTHOR'S ORGANIZ ATION 12/20/2018 [facility] DATE CREATED AUTHOR AUTHOR'S ORGANIZ ATION 01/31/2019 [facility] DATE CREATED AUTHOR AUTHOR'S ORGANIZ ATION 08/08/2021 [facility] Special[facility] DATE CREATED AUTHOR AUTHOR'S ORGANIZ ATION 08/09/2022 [facility] DATE CREATED AUTHOR AUTHOR'S ORGANIZ ATION 06/03/2023 [facility] d[facility] Specialists EPIC Care Teams (unrecognized sec tion and content) 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 This clinical summary was aggregated from multiple sources. Caution should be exercised in using it in the provision of clinical care. This summary normalizes information from multiple sources, and as a consequence, information in this document may materially change the coding, format and clinical context of patient data. In addition, data may be omitted in some cases. CLINICAL DECISIONS SHOULD BE BASED ON THE PRIMARY CLINICAL RECORDS. [employer] provides no warranty or guarantee of the accuracy or completeness of information in this document.
--- NOTE | 2023-07-02 08:46 | P.CN_ITS ---
Consult Note: HPI Data of Consult Patient: known to practice within the last 3 years Consult date: 07/02/23 Requesting Physician: Jeanette Castro NP Primary Care Provider: ADELITA EPPERSON Consult Narrative Reason for consult: f/u Narrative: Omar Voss a pleasant 43 year old male presents for evaluation and management of chronic low back pain, hx of LX DDD and lumbar radiculopathy. Pain today 4/10 in back with radiating numbness/tingling of left leg into left thigh, does not extend into his foot. Patient has previously had ablations of left L2-3 L4-5 facets with significant relief greater than 6 months. patient finds mild benefit from tylenol, NSAIDs. Does utilize THC gummies for sleep. Has tried baclofen in the past with unknown benefit. Patient reports this pain pattern is the exact same as prior to previous RFA which wore off around March 2023. cc:: CC: Jeanette Castro NP Review of Systems ROS Status of ROS 10 or more systems reviewed and unremark able except as noted in history and below Musculoskeletal Reports: back pain Exam Constitutional Documenting provider has reviewed patient's vital signs: yes Common normals: no apparent distress, oriented x3, healthy appearing, alert and well nourished General appearance: cooperative HENMT Common normals: normocephalic, hearing grossly normal bilaterally and moist oral mucous membranes Head and scalp: normocephalic Eye Common normals: PERRL Pupil: PERRL Neck & C-Spine Common normals: full ROM General: normal visual inspection Chest Common normals: inspection of chest normal Respiratory Common normals: normal respiratory effort, no retractions and no use of accessory muscles Back & Pelvis Lumbar spine/lower back: normal to inspection, ROM limited and pain with ROM Other: positive facet loading pain on left lumbar facets no radiculopathy on exam, sensation intact BLE, no weakness of BLE SLR negative axial low back pain Extremity Common normals: normal to inspection and full ROM Neuro Common normals: oriented x3, CN's II-XII intact bilaterally, moves all extremities, no focal motor deficits, no sensory deficits noted, deep tendon reflexes 2+ bilaterally and gait normal Sensorium/orientation: alert Motor exam: strength 5/5 throughout and no movement abnormalities noted Psych Common normals: mental status grossly normal, thought process normal, cooperative, affect normal, speech normal and activity/motor behavior normal Speech: normal speech Thought process: normal thought process Results Additional Findings Additional findings: I have checked an OARRS report on this patient today and there are no aberrancies noted in the prescribing history.?? A drug screen was completed and reviewed within the last year, and if there has not been a drug screen completed we ordered one today to monitor higher risk, state monitored pain medication use. As part of providing excellent, safe, comprehensive care, the following was completed at our patient's visit: 1. A medication reconciliation and review to ensure accurate knowledge of current/active medications, including asking our patients to inform us about any belf-int-gxakfwj medications or herbal remedies/nutritional supplements/alternative remedies. 2. A review to specifically ensure our patients have had annual screening for: elevated body mass index (BMI), tobacco use, screening for depression, and screening for unhealthy alcohol use. When screening is concerning, patients are provided with education and the specific recommendation to discuss the concerning health issue and treatment options with their primary care provider. Assessment and Plan Assessment and Plan (1) Lumbar spondylosis: Assessment and Plan: The patient has had over 3 months of moderate to severe low back pain with functional impairment and inadequate response to conservative care including NSAIDS (unless there are contraindication such as concurrent blood thinners), multiple oral or topical pain medications, and home exercise program/physical therapy.? Patient has completed >6 weeks of guided home exercise program and/or formal physical therapy program without relief of their symptoms.? I have reviewed the imaging of the lumbar spine and no red flags were identified.? The imaging reveals radiographic findings consistent with lumbar spondylosis The Oswestry Disability Index was completed, and the patient scored a 24%.? The patient noted the following:??moderate pain, pain with lifting, pain with standing and walking, pain impacting sleep social life and travel Plan left L2-3 L4-5 facet RFA under fluoroscopy with IV sedation continue HEP as tolerated continue current medications as needed f/u 1 month after RFA
== END 2023-07-02 08:10 | disposition home or self-care (01) ==
LOC: PM 08:09
PROVIDERS: PCP Internal Medicine; Visit Provider Nurse Practitioner
DX: M47.816 Spondylosis without myelopathy or radiculopathy, lumbar region (principal)
CPT/HCPCS: G0463

== ENCOUNTER 2023-07-27 15:46 | Emergency (ER) | payer BC, SELFPAY ==
[2023-07-27 15:50] VITALS: BP 138/92; PULSE 117; TEMP 36.8; O2SAT 97; BMI 38.5
--- OUTSIDE RECORDS SUMMARY | 2023-07-27 15:52 | XMS_ITS | CCD ---
Author Organization [facility] Care Team Providers Care Court Advocate Name Role Phone Jennifer Muller Unavailable Unavailable [...] vailable LAKSHMIPATHY ., NARENDRANATH Admitting Mell vailable JOSE ROBERTO NGUYEN Consulting Unavailable DR ADELITA EPPERSON Primary Care Unavailable HUMAIRA LAO Consulting Unavailable LAKSHMIPATHY ., WANDAENDROSIATH Consulting Mell vabraulioble DR ADELITA EPPERSON Consulting Unavailable DR ADELITA EPPERSON Primary Care Unavailable LAKSHMIPATHY ., NARENDRANATH Admitting Mell vailable LAKSHMIPATHY ., NARENDRANATH Consulting Mell vailable LAKSHMIPATHY ., NARENDRANATH Attending Mell vailable LAKSHMIPATHY ., NARENDRANATH Attending Mell vailable LAKSHMIPATHY ., NARENDRANATH Admitting Mell vailable LAKSHMIPATHY ., NARENDRANATH Consulting Mell vaDR ADELITA Kimball Primary Care Unavailable WELLS ., SEAN Consulting Unavailable MEGHAN ., DR BERNARDO Tate Admitting Unavailable MEGHAN ., DR BERNARDO Tate Attending Unavailable DR ADELITA EPPERSON Primary Care Unavailable WELLS ., SEAN Consulting Unavailable CHRISTIANSON ., DR BERNARDO Tate Admitting Unavailable MEGHAN ., DR BERNARDO Tate Attending Unavailable PHILIPPE, DR UREÑA Primary Care Unavailable RUSSELL .SEAN Unavailable MEGHAN ., DR BERNARDO Tate Admitting Unavailable MEGHAN ., DR BERNARDO Tate Attending Unavailable PHILIPPE, DR UREÑA Primary Care Unavailable PHILIPPE, DR UREÑA Consulting Unavailable Adelita Epperson MD Primary Care Provider KAITLYNNING, MARCEL Doherty Attending Unavailable ADELITA EPPERSON Referring [...] APLING, MARCEL B Referring Unavailable SURJIT, ANTONIO B Attending Unavailable APLING, MARCEL B Referring Unavailable SURJIT, ANTONIO Doherty Attending Unavailable APLING, MARCEL B Referring Unavailable TONYA ESTRELLA Attending Unavailable PHILIPPE, ADELITA Whitaker Attending Unavailable Unavailable Unavailable Unavailable Medications Current Medications Medication [...] width (RBC) [Ratio] 13.0 % Normal 11.0-15.0 [facility] [employer] Comment on above: Performed By: #### L IPD, CBC, CMP #### [facility] [address] [place], [place] [id number] Hematocrit (Bld) [Volume fraction] 46.2 % Normal 38.5-50.0 [facility] [employer] Comment on above: Performed By: #### L IPD, CBC, CMP #### [facility] [address] [place], [place] [id number] Hemoglobin (Bld) [Mass/Vol] 15.6 g/dL Normal 13.0-17.1 [facility] [employer] Comment on above: Performed By: #### L IPD, CBC, CMP #### [facility] [address] [place], [place] [id number] MCH (RBC) [Entitic mass] 29.8 pg Normal 27.0-33.0 [facility] [employer] Comment on above: Performed By: #### L IPD, CBC, CMP #### [facility] [address] [place], [place] [id number] MCHC (RBC) [Mass/Vol] 33.8 g/dL Normal 32.0-36.0 [facility] [employer] Comment on above: Performed By: #### L IPD, CBC, CMP #### [facility] [address] [place], [place] [id number] MCV (RBC) [Entitic vol] 88 fL Normal 80-100 [facility] [employer] Comment on above: Performed By: #### L IPD, CBC, CMP #### [facility] [address] [place], [place] [id number] Platelet mean volume (Bld) [Entitic vol] 11.20 fL Normal 7.50-12.50 [facility] [employer] Comment on above: Performed By: #### L IPD, CBC, CMP #### [facility] [address] [place], [place] [id number] Platelets (Bld) [#/Vol] 231 10*3/uL Normal 140-400 [facility] [employer] Comment on above: Performed By: #### L IPD, CBC, CMP #### [facility] [address] [place], [place] [id number] RBC (Bld) [#/Vol] 5.24 10*6/uL Normal 4.20-5.80 [facility] [employer] Comment on above: Performed By: #### L IPD, CBC, CMP #### [facility] [address] [place], [place] [id number] RDW-SD 42.1 fL Normal 37.0-50.0 [facility] [employer] Comment on above: Performed By: #### L IPD, CBC, CMP #### [facility] [address] [place], [place] [id number] WBC (Bld) [#/Vol] 9.2 10*3/uL Normal 3.8-11.0 [facility] [employer] Comment on above: Performed By: #### L IPD, CBC, CMP #### [facility] [address] [place], [place] [id number] Comprehensive Metabolic Pane [facility] 08-07-2021 Albumin [Mass/Vol] 4.7 g/dL Normal 3.6-5.1 [facility] [employer] Comment on above: Performed By: #### L IPD, CBC, CMP #### [facility] [address] [place], [place] [id number] Albumin/Globulin [Mass ratio] 2.4 {ratio} Normal 1.0-2.5 [facility] [employer] Comment on above: Performed By: #### L IPD, CBC, CMP #### [facility] [address] [place], [place] [id number] ALP [Catalytic activity/Vol] 76 U/L Normal 40-129 [facility] Comment on above: Performed By: #### L IPD, CBC, CMP #### [facility] [address] [place], [place] [id number] ALT [Catalytic activity/Vol] 52 U/L High 9-46 [facility] Specialist Comment on above: Result Comment: 03/28 Female reference range changed. Performed By: #### L IPD, CBC, CMP #### [facility] [address] [place], [place] [id number] Anion gap [Moles/Vol] 18 mmol/L Normal 12-20 [facility] Specialist Comment on above: Result Comment: Effe ctive 05/03/2019 reference range changed. Performed By: #### L IPD, CBC, CMP #### [facility] [address] [place], [place] [id number] AST [Catalytic activity/Vol] 36 U/L Normal 10-40 [facility] Specialist Comment on above: Performed By: #### L IPD, CBC, CMP #### [facility] [address] [place], [place] [id number] Bilirubin [Mass/Vol] 1.27 mg/dL High 0.30-1.20 [facility] Specialist Comment on above: Performed By: #### L IPD, CBC, CMP #### [facility] [address] [place], [place] [id number] BUN/CREA 10 Ratio Normal 6-22 [facility] Specialist Comment on above: Performed By: #### L IPD, CBC, CMP #### [facility] [address] [place], [place] [id number] Calcium [Mass/Vol] 9.6 mg/dL Normal 8.6-10.2 [facility] Comment on above: Performed By: #### L IPD, CBC, CMP #### [facility] [address] [place], [place] [id number] Chloride [Moles/Vol] 104 mmol/L Normal 98-107 [facility] Specialist Comment on above: Performed By: #### L IPD, CBC, CMP #### [facility] [address] [place], [place] [id number] CO2 [Moles/Vol] 22 mmol/L Normal 20-31 [facility] [employer] Comment on above: Performed By: #### L IPD, CBC, CMP #### [facility] [address] [place], [place] [id number] Creatinine [Mass/Vol] 1.0 mg/dL Normal 0.7-1.4 [facility] [employer] Comment on above: Performed By: #### L IPD, CBC, CMP #### [facility] [address] [place], [place] [id number] eGFRAA 96 mL/min/1.73m2 Normal >60 [facility] [employer] Comment on above: Performed By: #### L IPD, CBC, CMP #### [facility] [address] [place], [place] [id number] eGFRNAA 80 mL/min/1.73m2 Normal >60 [facility] [employer] Comment on above: Performed By: #### L IPD, CBC, CMP #### [facility] [address] [place], [place] [id number] Globulin (S) [Mass/Vol] 2.0 g/dL Normal 1.9-3.7 [facility] [employer] Comment on above: Performed By: #### L IPD, CBC, CMP #### [facility] [address] [place], [place] [id number] Glucose [Mass/Vol] 76 mg/dL Normal 65-99 [facility] [employer] Comment on above: Result Comment: For FASTING Glucose --- ADA reference ranges: Normal 65-99 mg/dl Prediabetes 100-125 Diabetes >/= 126 Performed By: #### L IPD, CBC, CMP #### [facility] [address] [place], [place] [id number] Potassium [Moles/Vol] 4.7 mmol/L Normal 3.5-5.5 [facility] [employer] Comment on above: Result Comment: Spec imen is hemolyzed. Results may be affected. Performed By: #### L IPD, CBC, CMP #### [facility] [address] [place], [place] [id number] Protein [Mass/Vol] 6.7 g/dL Normal 6.1-8.1 [facility] [employer] Comment on above: Performed By: #### L IPD, CBC, CMP #### [facility] [address] [place], [place] [id number] Sodium [Moles/Vol] 139 mmol/L Normal 135-146 [facility] Comment on above: Performed By: #### L IPD, CBC, CMP #### [facility] [address] [place], [place] [id number] Urea nitrogen [Mass/Vol] 11 mg/dL Normal 7-25 [facility] Specialist Comment on above: Performed By: #### L IPD, CBC, CMP #### [facility] [address] [place], [place] [id number] Lipid Panelon 08-07-2021 Cholesterol [Mass/Vol] 154 mg/dL Normal 125-200 [facility] Specialist Comment on above: Result Comment: Low risk < 200mg/dL Borderline risk 201-239 mg/dl High risk > or equal to 240 Performed By: #### L IPD, CBC, CMP #### [facility] [address] [place], [place] [id number] Cholesterol in HDL [Mass/Vol] 40 mg/dL Low >40 [facility] Specialist Comment on above: Result Comment: High Cardiovascular Risk HDL <40 mg/dL Low Cardiovascular Risk HDL > or equal to 60 mg/dl Performed By: #### L IPD, CBC, CMP #### [facility] [address] [place], [place] [id number] Cholesterol in LDL [Mass/Vol] 88 mg/dL Normal [facility] Comment on above: Result Comment: LDL ATP III CLASSIFICATION LDL less than 100 mg/dl Optimal LDL 100-129 mg/dl Near or above optimal LDL 130-159 Borderline high LDL 160-189 High LDL greater than 189 mg/dl Very High Performed By: #### L IPD, CBC, CMP #### [facility] [address] [place], [place] [id number] Cholesterol in VLDL [Mass/Vol] 26 mg/dL Normal [facility] Specialist Comment on above: Performed By: #### L IPD, CBC, CMP #### [facility] [address] [place], [place] [id number] Cholesterol.total/C holesterol in HDL [Mass ratio] 4 {ratio} Normal [place] [employer] Comment on above: Performed By: #### L IPD, CBC, CMP #### [facility] [address] [place], [place] [id number] Triglyceride [Mass/Vol] 129 mg/dL Normal 30-150 [facility] [employer] Comment on above: Result Comment: TRIG ATPIII CLASSIFICATIONS TRIG less than 150 mg/dl Normal TRIG 150-199 mg/dl Borderline High TRIG 200-500 mg/dl High TRIG greather than 500 mg/dl Very High Performed By: #### L IPD, CBC, CMP #### [facility] [address] [place], [place] [id number] NR MR L-SPINE WO/W CONTRASTo n 01-13-2019 NR MR L-SPINE WO/W CONTRAST Patient Name: LUÍS MORAN STUDY: MR L-SPINE WO/W CONTRAST; 01/13/2019 10:05 am INDICATION: Radiculopathy, lumbar region. History of laminectomy. Right leg pain and numbness. COMPARISON: None. ACCESSION NUMBER(S): [id number] ORDERING CLINICIAN: ADELITA HENRY TECHNIQUE: Multisequential MR [...] Electronically signed by: BJ MUNGUIA MD Normal [facility] XR LUMBAR SPINE (MIN 4 VIEWS )on 12-17-2018 XR LUMBAR SPINE (MIN 4 VIEWS) Radiology exam is complete. No Radiologist dictation. Please follow up with ordering provider. Final result Normal [facility] Radiology exam is complete. No Radiologist dictation. Please follow up with ordering provider. [facility] [place] Established Visit (Otolaryng ology)on 03-02-2018 Established Visit (Otolaryngology) Chief ComplaintNew patient suspected cholesteatoma History of Present IllnessHere today for mastoid bowl cleaning and follow up. Denies any interval otologic complaints since last being seen. Recall: 37 year old male referred by Dr. Head. When he was a child in [place] had a chronically draining ear and underwent [...] assist you through your ENT care at [facility].Dr. Chicas is an Ear surgeon. This means that he specializes in taking care of patients with complex ear problems.Dr. Chiacs's office number is [phone]. While you may see him at a satellite office, she has a team committed to help meet your healthcare needs at [facility]'s main campus. This number is the most direct way to communicate with the office.Audra is Dr. Padilla service secretary and she answers the office phone [...] may include dieticians, social workers, speech therapists, tub operator, neurologist, and physical therapist. Dr. Chicas will provide these referrals as needed. Please let him know if you would like to request a specific referral.For your convenience, Dr. Chicas sees patients at several [facility] locations including [facility], [facility], and [facility]. While we try to make your appointments [...] Mar 02 2018 2:05PM EST (Author) Normal [facility] Initial Visit (Otolaryngolog y)on 09-29-2017 Initial Visit (Otolaryngology) Chief ComplaintNew patient suspected cholesteatoma History of Present [age]jq29 year old male referred by Dr. Head. When he was a child in [place] had a chronically draining ear and underwent [...] AM Vitals Vital Signs Recorded: 29Sep2017 11:23AMHeart [id number] undt45Vehdno9 ft 2 ifSjppwt854 lb BMI Asoceurwfh76.65BSA Calculated2.59 Physical ExamCONSTITUTIONAL: No acute distressVOICE: No [...] assist you through your ENT care at [facility].Dr. Chicas is an Ear surgeon. This means that he specializes in taking care of patients with complex ear problems.Dr. Chicas's office number is [phone]. While you may see him at a satellite office, she has a team committed to help meet your healthcare needs at [facility]'s main campus. This number is the most direct way to communicate with the office.Audra is Dr. Padilla service secretary and she answers the office phone [...] may include dieticians, social workers, speech therapists, tub operator, neurologist, and physical therapist. Dr. Chicas will provide these referrals as needed. Please let him know if you would like to request a specific referral.For your convenience, Dr. Chicas sees patients at several [facility] locations including [facility], [facility], and [facility]. While we try to make your appointments [...] ACTIVE -Retrospective By Protocol Authorization Ordered Normal [facility] Encounters Encounter Date Encounter Type Care Provider Facility Start: 07-14-2023 End: 07-14-2023 ambulatory ADELITA Whitaker PHILIPPE Not Available Start: 06-24-2023 End: 06-24-2023 ambulatory TONYA ESTRELLA Not Available Start: 06-03-2023 Telephone encounter Marcel cameron NP Work Phone: [facility] Start: 06-02-2023 End: 06-03-2023 ambulatory ANTONIO B SURJIT Not Available Start: 05-28-2023 End: 05-28-2023 ambulatory ANTONIO B SURJIT Not Available Start: 05-21-2023 End: 05-21-2023 ambulatory ANTONIO B SURJIT Not Available Start: 05-19-2023 End: 05-19-2023 ambulatory ANTONIO B SURJIT Not Available Start: 2023 End: 2023 ambulatory ANTONIO B SURJIT Not Available Start: 05-12-2023 End: 05-13-2023 ambulatory ANTONIO Doherty SURJIT Not Available Start: 05-08-2023 End: 05-08-2023 ambulatory ANTONIO Doherty SURJIT Not Available Start: 05-05-2023 End: 05-06-2023 ambulatory MARCEL Doherty APLING Not Available Start: 09-05-[address] ADELITA EPPERSON Facility :[facility]1 Start: 08-06-2022 End: 08-06-2022 ambulatory NARENDRANATH LAKSHMIPATHY . Facility:[facility] Start: 07-23-2022 End: 07-24-2022 ambulatory NARENDRANATH LAKSHMIPATHY . Facility:[facility] Start: 03-28-2022 End: 03-29-2022 ambulatory SEAN WELLS . Facility:[facility] Start: 01-03-2022 End: 01-04-2022 ambulatory SEAN WELLS . Facility:[facility] Start: 10-04-2021 End: 10-05-2021 ambulatory SEAN WELLS . Facility: Start: 04-10-2020 End: 04-10-2020 Patient encounter procedure Adelita Philippe [facility] Start: 12-17-2018 End: 12-20-2018 Patient encounter procedure [facility] Start: 12-17-2018 End: 12-19-2018 Subsequent hospital visit by physician [facility] Comment on above: Low back pain, unspe cified back pain laterality, unspecified chronicity, with sciatica presence unspecified Start: 03-02-2018 Patient encounter procedure Dale Chicas Facility:[id number] Start: 09-29-2017 Patient encounter procedure Dale Chicas Facility:[id number] Procedures Date Procedure Procedure Detail Performing Clinician Start: 12-17-2018 Radex spine lumbosac ral minimum 4 views ADELITA EPPERSON Start: 12-17-2018 Radex spine lumbosac ral minimum 4 views Adelita Henry Work Phone: Start: 09-29-2017 Follow-up visit Plan of Treatment Date Care Activity Detail Author Start: 08-26-2023 End: 08-26-2023 Patient encounter procedure 08/26/2023 3:45 PM EDT Office Visit [facility] [address] [place] [phone] Al Chi S, DO [address] [place] [address] [facility] Start: 07-14-2023 End: 07-14-2023 Patient encounter procedure 07/14/2023 8:45 AM EDT Office Visit [facility] [address] [place] [phone] Adelita Epperson MD [address] [place] [address] [facility] Start: 06-23-2023 End: 06-23-2023 Patient encounter procedure 06/23/2023 8:00 AM EST Office Visit [facility] [address] [facility] [address] [place] [address] Marcel Haley, SUPERVISOR [employer]ING [employer] [address] [facility] [address] [place] [address] [facility] Start: 06-16-2023 End: 06-16-2023 ambulatory 06/16/2023 4:15 PM EST Treatment [facility] [address] [facility] [place] [phone] Antonio Solomon, PT [address] [facility] [place] [address] [facility] Start: 06-09-2023 End: 06-09-2023 ambulatory 06/09/2023 4:30 PM EST Treatment [facility] [address] [facility] [place] [address] Antonio Solomon, PT [address] [facility] [place] [address] [facility] Start: 06-04-2023 End: 06-04-2024 MR Lumbar spine WO contrast MR lumbar spine wo contrast Imaging Routine DDD (degenerative disc disease), lumbar Lumbar herniated disc Expected: 06/04/2023 (Approximate), Expires: 06/04/2024 [facility] Work Phone: Comment on above: Expected: 06/04/2023 (Approximate), Expires: 06/04/2024 Start: 12-27-2022 Influenza vaccination Influenza Vacc ine (#1) [facility] Start: 12-27-2018 Influenza vaccination Flu vaccine (# 1) [place], [place] Start: 1999 DTaP/Tdap/Td vaccine (1 - Tdap) DTaP/Tdap/Td vaccine (1 - Tdap) [place], [place] Start: 1995 HIV screen HIV screen [place], [place] Start: 1993 Varicella Vaccine (1 of 2 - 13+ 2-dose series) Varicella Vaccine (1 of 2 - 13+ 2-dose series) [place], [place] Start: 1986 Pneumococcal 0-64 ye ars Vaccine (1 of 1 - PPSV23) Pneumococcal 0-64 years Vaccine (1 of 1 - PPSV23) [place] Payers Date Payer Category Payer Unknown BCBS BCBS xxxxxx [id number] 2020-Present [phone] [address] [place] [address] [id number] 2017 Private Health Insurance [id number] 2017 Private Health Insurance [employer] A ETNA xxxxxxxxxx 2017-Present [phone] [address] [place] [address] xxxxxxxxxx [id number] 1980 Unknown [id number] 2.16.840.1.666886.3.579.2 .356 1980 Unknown [id number] 2.16.840.1.949136.3.579.2 .356 1980 Unknown [id number] 2.16.840.1.493142.3.579.2 .356 1980 Unknown [id number] 2.16.840.1.492179.3.579.2 .185 1980 Unknown [id number] 2.16.840.1.182136.3.579.2 .593 1980 Unknown [id number] 2.16.840.1.799423.3.579.2 .593 1980 Unknown [id number] 2.16.840.1.959904.3.579.2 .593 1980 Unknown [id number] 2.16.840.1.046703.3.579.2 .593 1980 Unknown [id number] 2.16.840.1.279451.3.579.2 .593 1980 Unknown [id number] 2.16.840.1.204217.3.579.2 .593 1980 Unknown [id number] 2.16.840.1.430425.3.579.2 .1258 1980 Unknown [id number] 2.16.840.1.744156.3.579.2 .1258 1980 Unknown [id number] 2.16.840.1.532326.3.579.2 .1258 1980 Unknown [id number] 2.16.840.1.963375.3.579.2 .1259 1980 Unknown [id number] 2.16.840.1.106882.3.579.2 .1259 1980 Unknown [id number] 2.16.840.1.942929.3.579.2 .1258 1980 Unknown [id number] 2.16.840.1.751471.3.579.2 .1259 1980 Unknown [id number] 2.16.840.1.684343.3.579.2 .1258 1980 Unknown [id number] 2.16.840.1.776080.3.579.2 .1259 1980 Unknown [id number] 2.16.840.1.825604.3.579.2 .1259 1980 Unknown [id number] 2.16.840.1.284813.3.579.2 .1259 1959 Unknown [id number] Self-pay Self Pay [id number] Social History Date Type Detail Facility Start: 01-16-2018 End: 02-25-2023 Tobacco smoking status NHIS Current every day smoker [place] Start: 01-16-2018 End: 11-07-2022 Alcohol intake No [place] Sex Assigned At Not on file [place] Start: 1980 Sex Assigned At Male N [...] and would like to do MRI at [facility]. [facility] Note 06-03-2023 Telephone Encounter - Nida Gross - 06/03/2023 2:47 PM EST Note Date & Type Note Facility 06-03-2023 Miscellaneous Notes Formattin g of this note might be different from the original. Pt called back and would like to do MRI at [facility]. documented in this encounter [facility] Consultation note 07-23-2022 Note Date & Type Note Facility 07-23-2022 Note PAIN MANAGEMENT CONS ULTATION CONSULTATION DATE: 07/23/2022 ADDENDUM: The dictation mentions denervation of the L4-5, L5-S1 facet joint under fluoroscopic guidance by using radiofrequency ablation on the left side. The dictation should read: Proceed with radiofrequency ablation of the L2-3, L4-5 levels under fluoroscopic guidance on the left side. [facility] Consultation note 07-23-2022 Note Date & Type Note Facility 07-23-2022 Note PAIN MANAGEMENT CONS ULTATION CONSULTATION DATE: 07/23/2022 ADDENDUM: The dictation mentions denervation of the L4-5, L5-S1 facet joint under fluoroscopic guidance by using radiofrequency ablation on the left side. The dictation should read: Proceeded with radiofrequency ablation of the L2-3, L4-5 levels under fluoroscopic guidance on the left side. [facility] Consultation note 07-23-2022 Note Date & Type [...] to proceed with the outlined plan. 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 He reports 0/10 [...] in six months' time for re-evaluation. [facility] Consultation note 01-03-2022 Note Date & Type [...] three months' time, unless otherwise indicated. [facility] Consultation note 10-04-2021 Note Date & Type [...] gluconate 800 mg q.h.s. in addition to ukxg-tnr-cutztlb ibuprofen 600 mg q.a.m. before work. Daily stretching and the use of heat were encouraged to aid with the spasms. We discussed about different vitamin regimens and the patient was willing to try. He will be followed up in the clinic in three months' time unless otherwise indicated. The patient agrees with the plan of care. [facility] Signed and Approved by: SEAN WELLS . 10/11/2021 16:03:00 [facility] Evaluation note Note Date & Type Note [...] FoundNo Family History Records Found Advance Directives No Advanced Directives Records FoundDocuments on File Type Date Recorded Patient Emergency Department Aide Expl anation Advance Directives and Living Will Power of Reinsurance Analyst Advance Directive Response Recorded Date/ Time Advance Directives No December 8:43am Assessments Diagnosis Low back pain, unspecified back pain laterality, unspecified chronicity, with sciatica presence unspecified Chief Complaint and Reason for Visit Chief Complaint Back Pain Reason for Referral Specialty Diagnoses / Procedures Referred By Selvin t Referred To Contact Diagnoses DDD (degenerative disc disease), lumbar Lumbar herniated disc Procedures MR lumbar spine wo contrast Marcel Haley, SUPERVISOR CLEANING AND [facility] [address] [facility] [address] [place] [address] Referral ID Status Reason Start Date Expiration Date V isits Requested Visits Authorized [id number] Pending Review 06/04/2023 12/01/2023 1 1 Additional Source Comments (unrecognized sect ion and content) No Status Records FoundNo Status Records FoundNo Status Records FoundNo Status Records FoundNo Status Records FoundNo Status Records FoundNo Status Records Found INFORMATION SOURCE (unrecogn ized section and content) DATE CREATED AUTHOR 04/05/2018 [facility] DATE CREATED AUTHOR AUTHOR'S ORGANIZ ATION 04/05/2018 [employer] DATE CREATED AUTHOR AUTHOR'S ORGANIZ ATION 12/20/2018 [facility] DATE CREATED AUTHOR AUTHOR'S ORGANIZ ATION 01/31/2019 [facility] DATE CREATED AUTHOR AUTHOR'S ORGANIZ ATION 08/08/2021 [facility] d[facility] Special[facility] DATE CREATED AUTHOR AUTHOR'S ORGANIZ ATION 08/09/2022 [facility] DATE CREATED AUTHOR AUTHOR'S ORGANIZ ATION 07/14/2023 [facility] dical Specialists EPIC Care Teams (unrecognized sec tion and content) Court Advocate Relationship Specialty Start Date End Date Adelita Epperson MD [address] [place] [address] PCP - General Internal Medicine 11/06/22 FOR [...] BE BASED ON THE PRIMARY CLINICAL RECORDS. [employer] [facility]. provides no warranty or guarantee of the accuracy or completeness of information in this document.
--- NOTE | 2023-07-27 17:02 | CT_ITS ---
The [address] [address] Patient Name: LUÍS MORAN MRN: [id number] date: 1980 Sex: M Assigned Patient Location: ER Current Patient Location: ER Accession/Order Number: [id number] Exam Date: 07/27/2023 17:13 Report Date: 07/27/2023 18:10 At the request of: JAROCHO CALLES Procedure: CT abdomen pelvis wo con CT ABDOMEN/PELVIS WITHOUT IV CONTRAST. INDICATION: back pain and COMPARISON: There are no other studies available for comparison. TECHNIQUE: Contiguous axial images were obtained from the lung bases to the pelvic floor without intravenous or oral contrast. Coronal and sagittal reformations are provided. FINDINGS: LOWER LUNGS: Clear. LIVER/BILIARY TREE: There is a low-density 1.3 cm heterogeneous lesion in the right hepatic lobe probably a hemangioma. No intrahepatic ductal dilatation. GALLBLADDER: No significant gallbladder wall thickening. No radiopaque stone. CBD: Normal CBD. SPLEEN: Normal in size. PANCREAS: No appreciable peripancreatic fluid. No pancreatic ductal dilatation. No discrete lesion. ADRENALS: Normal. KIDNEYS: No hydronephrosis. No radiopaque calculus. STOMACH AND BOWEL: Stomach is unremarkable. No dilated bowel loops. No bowel wall thickening. APPENDIX: Normal appendix. PERITONEAL CAVITY: No fluid. No fat stranding. ABDOMINAL WALL: No subcutaneous stranding. No subcutaneous fluid collection. LYMPH NODES: No mesenteric or retroperitoneal lymphadenopathy by CT criteria. ABDOMINAL AORTA: No aneurysm. PELVIS: No acute abnormality. MUSCULOSKELETAL: No acute osseous abnormality. CT/CT abdomen pelvis wo con IMPRESSION: No acute abnormality in the abdomen or pelvis. Electronically authenticated by: MAMTA LANCASTER Date: 07/27/2023 18:10
[2023-07-27] MEDS: KETOROLAC TROMETHAMINE 60 MG/2 ML VIAL IM (18:47)
[2023-07-27] MEDS: ORPHENADRINE 60 MG/ 2 ML VIAL IM (18:47)
--- NOTE | 2023-07-27 18:50 | ED.BACK1 ---
HPI HPI - Back Pain/Injury General Chief Complaint: Back Pain/Injury Stated Complaint: Back Pain Time Seen by Provider: 07/27/23 17:01 Source: patient Mode of arrival: walk-in History of Present Illness HPI Narrative: Patient have a history of chronic back pain is coming to the ER after he few days ago was trying to grab something from the floor and he felt that his back pain got worse, patient does not usually take pain medication he have a history of chronic back pains plan to have a injection this Friday. The patient denies any incontinence of urine but although he mentioned that he feels that he is retaining urine. The patient have no decrease in appetite no fever no chills no other complaints but he mentioned that the pain. in his back radiated to the front of the abdomen which is new. Patient have no constipation and he have the pain radiating down his left leg which is not new there is no weakness only numbness. The patient is wearing a binder at the moment and mentioned that the pain is there only when he moves Related Data Home Medications ?Medication ?Instructions ?Recorded ?Confirmed thc gummies PO .qhs 07/03/23 Allergies Allergy/AdvReac Type Severity Reaction Status Date / Time No Known Drug Allergies Allergy Verified 07/03/23 09:41 Opioid HPI Opioid Management Most Recent Opioid Data: Last JUN Pain Assessment 07/27/23 18:47 Review of Systems ROS Status of ROS 10 or more systems reviewed and unremarkable except as noted in history and below [facility] Surgical History (Updated 07/22/23 @ 14:46 by Linda Flanagan RN) Hx of tonsillectomy ?Z90.89 - Acquired absence of other organs (ICD-10) History of tympanoplasty ?Z98.890 - Other specified postprocedural states (ICD-10) History of lumbar surgery ?Z98.890 - Other specified postprocedural states (ICD-10) Exam Narrative Exam Narrative: Nurses notes and vital signs reviewed and patient is not hypoxic. General: Well-appearing and in no apparent distress. Skin: Warm, dry, no pallor noted. No rash. Head: Normocephalic, atraumatic. Neck: Supple, non-tender. Eye: Pupils are equal, round and EOMI. No scleral icterus. Ears, Nose, Mouth, and Throat: TM are clear, no nasal mucosal hypertrophy. Oral mucosa is moist, no posterior oropharynx erythema, uvula is mid-line Cardiovascular: Regular Rate and Rhythm without murmur, gallop or rub. Respiratory: No accessory muscle use or respiratory distress. Lungs are clear to auscultation, no wheezing, rales or rhonchi Chest Wall: no tenderness Back: The patient have no CVA tenderness he have intervertebral line tenderness at the lower lumbar and the upper sacral level in the middle, no ecchymosis or any signs of trauma Musculoskeletal: normal ROM, no calf or popliteal tenderness, no lower extremity edema/swelling GI: Abdomen is soft, non-distended. Normal bowel sounds. No masses appreciated. No tenderness to palpation. No rebound, guarding, or rigidity noted. Neurological: A&O x4. No cranial nerve dysfunction observed. No truncal ataxia. Moves all extremities. Sensation intact. Psychiatric: Cooperative and interactive. Normal mood and affect. Constitutional Vital Signs, click to edit/add: Last Vital Signs Temp 98.3 F 07/27/23 15:50 Pulse 117 H 07/27/23 15:50 Resp 18 07/27/23 15:50 BP 138/92 H 07/27/23 15:50 Pulse Ox 97 07/27/23 15:50 O2 Del Method Room Air 07/27/23 15:50 Course Vital Signs Vital signs: Vital Signs Temperature 98.3 F 07/27/23 15:50 Pulse Rate 117 H 07/27/23 15:50 Respiratory Rate 18 07/27/23 15:50 Blood Pressure 138/92 H 07/27/23 15:50 Pulse Oximetry 97 07/27/23 15:50 Oxygen Delivery Method Room Air 07/27/23 15:50 Temperature 98.3 F 07/27/23 15:50 Pulse Rate 117 H 07/27/23 15:50 Respiratory Rate 18 07/27/23 15:50 Blood Pressure 138/92 H 07/27/23 15:50 Pulse Oximetry 97 07/27/23 15:50 Oxygen Delivery Method Room Air 07/27/23 15:50 MDM - Back Pain/Injury MDM Narrative Medical decision making narrative: Patient bladder scan shows 178 cc of urine The patient also had a CAT scan of the abdomen and pelvis without contrast and did not show any acute pathology I did speak with the radiologist and specifically asked about the lumbar spine case of any pathology and he mentioned that there is no acute finding of any spinal cord compression in the lumbar level detected on the CAT scan of the abdomen, It was noted that the patient MRI that he had last month did not show any significant canal stenosis at any level of the lumbar spine. Right now the patient is not retaining urine and his pain is not showing alarming symptoms . The plan right now is to make sure that the patient received Toradol and Norflex after which he will be evaluated and the in case of improvement he will be discharged to follow-up with orthopedic as outpatient with the same medication The patient care was transferred to awaiting evaluation after meds Discharge Plan Discharge Patient Disposition: Still a Patient
--- NOTE | 2023-07-27 19:16 | ED_ITS ---
HPI HPI - Back Pain/Injury General Chief Complaint: Back Pain/Injury Stated Complaint: Back Pain Time Seen by Provider: 07/27/23 17:01 Source: patient Mode of arrival: walk-in History of Present Illness HPI Narrative: The patient was in seen by Dr Bui and signed out to me after discussing the case with her thoroughly. Please see her full history and physical exam. Related Data Home Medications ?Medication ?Instructions ?Recorded ?Confirmed thc gummies PO .qhs 07/03/23 Previous Rx's ?Medication ?Instructions ?Recorded acetaminophen 300 mg-codeine 30 mg 1 tab PO Q6H PRN pain 5 days #20 07/27/23 tablet tabs cyclobenzaprine 10 mg tablet 10 mg PO TID PRN muscle spasm #20 07/27/23 tabs ibuprofen 800 mg tablet 800 mg PO Q8H PRN pain #20 tabs 07/27/23 Allergies Allergy/AdvReac Type Severity Reaction Status Date / Time No Known Drug Allergies Allergy Verified 07/03/23 09:41 Opioid HPI Opioid Management Most Recent Opioid Data: Last JUN Pain Assessment 07/27/23 18:47 PFSH PFSH Surgical History (Updated 07/22/23 @ 14:46 by Linda Flanagan RN) Hx of tonsillectomy ?Z90.89 - Acquired absence of other organs (ICD-10) History of tympanoplasty ?Z98.890 - Other specified postprocedural states (ICD-10) History of lumbar surgery ?Z98.890 - Other specified postprocedural states (ICD-10) Exam Constitutional Vital Signs, click to edit/add: Last Vital Signs Temp 98.3 F 07/27/23 15:50 Pulse 117 H 07/27/23 15:50 Resp 18 07/27/23 15:50 BP 138/92 H 07/27/23 15:50 Pulse Ox 97 07/27/23 15:50 O2 Del Method Room Air 07/27/23 15:50 Course Vital Signs Vital signs: Vital Signs Temperature 98.3 F 07/27/23 15:50 Pulse Rate 117 H 07/27/23 15:50 Respiratory Rate 18 07/27/23 15:50 Blood Pressure 138/92 H 07/27/23 15:50 Pulse Oximetry 97 07/27/23 15:50 Oxygen Delivery Method Room Air 07/27/23 15:50 Temperature 98.3 F 07/27/23 15:50 Pulse Rate 117 H 07/27/23 15:50 Respiratory Rate 18 07/27/23 15:50 Blood Pressure 138/92 H 07/27/23 15:50 Pulse Oximetry 97 07/27/23 15:50 Oxygen Delivery Method Room Air 07/27/23 15:50 MDM - Back Pain/Injury MDM Narrative Medical decision making narrative: CT scan per radiologist shows no acute findings and the patient is able to urinate. He is feeling improved and is able to be discharged home. Treatment diagnosis and follow-up were discussed with the patient. Differential Diagnosis Differential diagnosis: Likely lumbar radiculopathy, sciatica and strain of lumbar region Imaging Data CT scan - abdomen: Radiologist's impression: ITS Impressions Abdomen/Pelvis CT 07/27/23 17:02 IMPRESSION: No acute abnormality in the abdomen or pelvis. Electronically authenticated by: MAMTA LANCASTER Date: 07/27/2023 18:10 Discharge Plan Discharge Stand Alone Forms: Portal Instructions Chief Complaint: Back Pain/Injury Clinical Impression: Lumbar radiculopathy Patient Disposition: Home, Self-Care Time of Disposition Decision: 18:56 Condition: Good Mode of Transportation: Private Vehicle Prescriptions / Home Meds: New acetaminophen-codeine 300-30 mg tablet 1 tab PO Q6H PRN (Reason: pain) 5 Days Qty: 20 0RF cyclobenzaprine 10 mg tablet 10 mg PO TID PRN (Reason: muscle spasm) Qty: 20 0RF ibuprofen 800 mg tablet 800 mg PO Q8H PRN (Reason: pain) Qty: 20 0RF No Action thc gummies PO .qhs Print Language: Yoruba Instructions: Lumbar Radiculopathy (ED) Referrals: ADELITA EPPERSON [Primary Care Provider] - 1 week
[2023-07-27 19:42] LABS: Bilirubin Urine NEGATIVE (NEGATIVE); Blood Urine NEGATIVE (NEGATIVE); Clarity Urine CLEAR (CLEAR); Color Urine YELLOW (YELLOW); Glucose Urine UA NEGATIVE (NEGATIVE); Ketones Urine NEGATIVE (NEGATIVE); Leukocyte Esterase Urine NEGATIVE (NEGATIVE); Nitrite Urine NEGATIVE (NEGATIVE); Protein Urine NEGATIVE (NEG/TRACE)
[2023-07-27 19:43] LABS: Urine Microscopic Indicated NO
== END 2023-07-27 19:30 | disposition home or self-care (01) ==
PROVIDERS: Emergency Medicine; Emergency Provider Emergency Medicine; PCP Internal Medicine
DX: M54.16 Radiculopathy, lumbar region (principal); Z90.89 Acquired absence of other organs; Z98.890 Other specified postprocedural states; R33.9 Retention of urine, unspecified
CPT/HCPCS: 51798; 74176; 81003; 96372; 99285

== ENCOUNTER 2023-07-29 06:44 | Day surgery (SDC) | payer BC, SELFPAY ==
--- OUTSIDE RECORDS SUMMARY | 2023-07-29 06:48 | XMS_ITS | CCD ---
Author Organization [facility] Care Team Providers Care Cell Coverer Name Role Phone Jennifer Muller Unavailable Unavailable Juan Francisco, Maroun Tanus Unavailable Unavailable Adelita Epperson Unavailable Unavailable Juan Francisco, Maroun Tanus Unavailable Unavailable Pelon Head Unavailable Unavail able Adelita Epperson Unavailable Unavailable Juan Francisco, Maroun Tanus Unavailable Unavailable Juan Francisco, Maroun Tanus Unavailable Unavailable Adelita Epperson Unavailable Unavailable ADELITA EPPERSON Primary Care Unavailable Adelita Epperson Primary Care Provider Adelita Epperson Primary Care Provider [phone] Dereck Morrow Attending Provider [phone] LAKSHMIPATHY ., NARENDRANATH Attending Mell vailable LAKSHMIPATHY ., NARENDRANATH Admitting Mell vailable JOSE ROBERTO NGUYEN Consulting Unavailable DR ADELITA EPPERSON Primary Care Unavailable HUMAIRA LAO Consulting Unavailable LAKSHMIPATHY ., WANDAENDROSIATH Consulting Mell vailable DR ADELITA EPPERSON Consulting Unavailable DR ADELITA EPPERSON Primary Care Unavailable LAKSHMIPATHY ., NARENDRANATH Admitting Mell vailable LAKSHMIPATHY ., NARENDRANATH Consulting Mell vailable LAKSHMIPATHY ., NARENDRANATH Attending Mell vailable LAKSHMIPATHY ., NARENDRANATH Attending Mell vailable LAKSHMIPATHY ., NARENDRANATH Admitting Mell vailable LAKSHMIPATHY ., NARENDRANATH Consulting Mell vailaDR ADELITA Stovall Primary Care Unavailable WELLS ., SEAN Consulting [...] width (RBC) [Ratio] 13.0 % Normal 11.0-15.0 [facility] National Investigative Producer Comment on above: Performed By: #### L IPD, CBC, CMP #### [facility] [address], [place] [id number] Hematocrit (Bld) [Volume fraction] 46.2 % Normal 38.5-50.0 [facility] National Investigative Producer Comment on above: Performed By: #### L IPD, CBC, CMP #### [facility] [address], [place] [id number] Hemoglobin (Bld) [Mass/Vol] 15.6 g/dL Normal 13.0-17.1 [facility] National Investigative Producer Comment on above: Performed By: #### L IPD, CBC, CMP #### [facility] [address], [place] [id number] MCH (RBC) [Entitic mass] 29.8 pg Normal 27.0-33.0 [facility] National Investigative Producer Comment on above: Performed By: #### L IPD, CBC, CMP #### [facility] [address], [place] [id number] MCHC (RBC) [Mass/Vol] 33.8 g/dL Normal 32.0-36.0 [facility] National Investigative Producer Comment on above: Performed By: #### L IPD, CBC, CMP #### [facility] [address], [place] [id number] MCV (RBC) [Entitic vol] 88 fL Normal 80-100 [facility] National Investigative Producer Comment on above: Performed By: #### L IPD, CBC, CMP #### [facility] [address], [place] [id number] Platelet mean volume (Bld) [Entitic vol] 11.20 fL Normal 7.50-12.50 [facility] National Investigative Producer Comment on above: Performed By: #### L IPD, CBC, CMP #### [facility] [address], [place] [id number] Platelets (Bld) [#/Vol] 231 10*3/uL Normal 140-400 [facility] National Investigative Producer Comment on above: Performed By: #### L IPD, CBC, CMP #### [facility] [address], [place] [id number] RBC (Bld) [#/Vol] 5.24 10*6/uL Normal 4.20-5.80 [facility] National Investigative Producer Comment on above: Performed By: #### L IPD, CBC, CMP #### [facility] [address], [place] [id number] RDW-SD 42.1 fL Normal 37.0-50.0 [facility] National Investigative Producer Comment on above: Performed By: #### L IPD, CBC, CMP #### [facility] [address], [place] [id number] WBC (Bld) [#/Vol] 9.2 10*3/uL Normal 3.8-11.0 [facility] National Investigative Producer Comment on above: Performed By: #### L IPD, CBC, CMP #### [facility] [address], [place] [id number] Comprehensive Metabolic Pane [facility] 08-07-2021 Albumin [Mass/Vol] 4.7 g/dL Normal 3.6-5.1 [facility] National Investigative Producer Comment on above: Performed By: #### L IPD, CBC, CMP #### [facility] [address], [place] [id number] Albumin/Globulin [Mass ratio] 2.4 {ratio} Normal 1.0-2.5 [facility] National Investigative Producer Comment on above: Performed By: #### L IPD, CBC, CMP #### [facility] [address], [place] [id number] ALP [Catalytic activity/Vol] 76 U/L Normal 40-129 [facility] Comment on above: Performed By: #### L IPD, CBC, CMP #### [facility] [address], [place] [id number] ALT [Catalytic activity/Vol] 52 U/L High 9-46 [facility] Specialist Comment on above: Result Comment: 03/28 Female reference range changed. Performed By: #### L IPD, CBC, CMP #### [facility] [address], [place] [id number] Anion gap [Moles/Vol] 18 mmol/L Normal 12-20 [facility] Comment on above: Result Comment: Effe ctive 05/03/2019 reference range changed. Performed By: #### L IPD, CBC, CMP #### [facility] [address], [place] [id number] AST [Catalytic activity/Vol] 36 U/L Normal 10-40 [facility] Comment on above: Performed By: #### L IPD, CBC, CMP #### [facility] [address], [place] [id number] Bilirubin [Mass/Vol] 1.27 mg/dL High 0.30-1.20 [facility] Comment on above: Performed By: #### L IPD, CBC, CMP #### [facility] [address], [place] [id number] BUN/CREA 10 Ratio Normal 6-22 [facility] Comment on above: Performed By: #### L IPD, CBC, CMP #### [facility] [address], [place] [id number] Calcium [Mass/Vol] 9.6 mg/dL Normal 8.6-10.2 [facility] Comment on above: Performed By: #### L IPD, CBC, CMP #### [facility] [address], [place] [id number] Chloride [Moles/Vol] 104 mmol/L Normal 98-107 [facility] Comment on above: Performed By: #### L IPD, CBC, CMP #### [facility] [address], [place] [id number] CO2 [Moles/Vol] 22 mmol/L Normal 20-31 [facility] National Investigative Producer Comment on above: Performed By: #### L IPD, CBC, CMP #### [facility] [address], [place] [id number] Creatinine [Mass/Vol] 1.0 mg/dL Normal 0.7-1.4 [facility] National Investigative Producer Comment on above: Performed By: #### L IPD, CBC, CMP #### [facility] [address], [place] [id number] eGFRAA 96 mL/min/1.73m2 Normal >60 [facility] National Investigative Producer Comment on above: Performed By: #### L IPD, CBC, CMP #### [facility] [address], [place] [id number] eGFRNAA 80 mL/min/1.73m2 Normal >60 [facility] National Investigative Producer Comment on above: Performed By: #### L IPD, CBC, CMP #### [facility] [address], [place] [id number] Globulin (S) [Mass/Vol] 2.0 g/dL Normal 1.9-3.7 [facility] National Investigative Producer Comment on above: Performed By: #### L IPD, CBC, CMP #### [facility] [address], [place] [id number] Glucose [Mass/Vol] 76 mg/dL Normal 65-99 [facility] National Investigative Producer Comment on above: Result Comment: For FASTING Glucose --- ADA reference ranges: Normal 65-99 mg/dl Prediabetes 100-125 Diabetes >/= 126 Performed By: #### L IPD, CBC, CMP #### [facility] [address], [place] [id number] Potassium [Moles/Vol] 4.7 mmol/L Normal 3.5-5.5 [facility] National Investigative Producer Comment on above: Result Comment: Spec imen is hemolyzed. Results may be affected. Performed By: #### L IPD, CBC, CMP #### [facility] [address], [place] [id number] Protein [Mass/Vol] 6.7 g/dL Normal 6.1-8.1 [facility] National Investigative Producer Comment on above: Performed By: #### L IPD, CBC, CMP #### [facility] [address], [place] [id number] Sodium [Moles/Vol] 139 mmol/L Normal 135-146 [facility] Comment on above: Performed By: #### L IPD, CBC, CMP #### [facility] [address], [place] [id number] Urea nitrogen [Mass/Vol] 11 mg/dL Normal 7-25 [facility] Special[facility] Comment on above: Performed By: #### L IPD, CBC, CMP #### [facility] [address], [place] [id number] Lipid Panelon 08-07-2021 Cholesterol [Mass/Vol] 154 mg/dL Normal 125-200 [facility] Specialist Comment on above: Result Comment: Low risk < 200mg/dL Borderline risk 201-239 mg/dl High risk > or equal to 240 Performed By: #### L IPD, CBC, CMP #### [facility] [address], [place] [id number] Cholesterol in HDL [Mass/Vol] 40 mg/dL Low >40 [facility] Comment on above: Result Comment: High Cardiovascular Risk HDL <40 mg/dL Low Cardiovascular Risk HDL > or equal to 60 mg/dl Performed By: #### L IPD, CBC, CMP #### [facility] [address], [place] [id number] Cholesterol in LDL [Mass/Vol] 88 mg/dL Normal [facility] Comment on above: Result Comment: LDL ATP III CLASSIFICATION LDL less than 100 mg/dl Optimal LDL 100-129 mg/dl Near or above optimal LDL 130-159 Borderline high LDL 160-189 High LDL greater than 189 mg/dl Very High Performed By: #### L IPD, CBC, CMP #### [facility] [address], [place] [id number] Cholesterol in VLDL [Mass/Vol] 26 mg/dL Normal [facility] Comment on above: Performed By: #### L IPD, CBC, CMP #### [facility] [address], [place] [id number] Cholesterol.total/C holesterol in HDL [Mass ratio] 4 {ratio} Normal [employer] National Investigative Producer Comment on above: Performed By: #### L IPD, CBC, CMP #### [facility] [address], [place] [id number] Triglyceride [Mass/Vol] 129 mg/dL Normal 30-150 [facility] National Investigative Producer Comment on above: Result Comment: TRIG ATPIII CLASSIFICATIONS TRIG less than 150 mg/dl Normal TRIG 150-199 mg/dl Borderline High TRIG 200-500 mg/dl High TRIG greather than 500 mg/dl Very High Performed By: #### L IPD, CBC, CMP #### [facility] [address], [place] [id number] NR MR L-SPINE WO/W CONTRASTo n 01-13-2019 NR MR L-SPINE WO/W CONTRAST Patient Name: LUÍS MORAN STUDY: MR L-SPINE WO/W CONTRAST; 01/13/2019 10:05 am INDICATION: Radiculopathy, lumbar region. History of laminectomy. Right leg pain and numbness. COMPARISON: None. ACCESSION NUMBER(S): [id number] ORDERING CLINICIAN: ADELITA HENRY TECHNIQUE: Multisequential MR [...] Electronically signed by: BJ MUNGUIA MD Normal [facility] XR LUMBAR SPINE (MIN 4 VIEWS )on 12-17-2018 XR LUMBAR SPINE (MIN 4 VIEWS) Radiology exam is complete. No Radiologist dictation. Please follow up with ordering provider. Final result Normal [facility] Radiology exam is complete. No Radiologist dictation. Please follow up with ordering provider. [facility], [place] Established Visit (Otolaryng ology)on 03-02-2018 Established Visit (Otolaryngology) Chief ComplaintNew patient suspected cholesteatoma History of Present IllnessHere today for mastoid bowl cleaning and follow up. Denies any interval otologic complaints since last being seen. Recall: 37 year old male referred by Dr. Head. [place] a [place] had a chronically draining ear and underwent [...] assist you through your ENT care at [facility].Dr. Chicas is an Ear surgeon. This means that he specializes in taking care of patients with complex ear problems.Dr. Chicas's office number is [phone]. While you may see him at a satellite office, she has a team committed to help meet your healthcare needs at [facility]'s main campus. This number is the most direct way to communicate with the office.Audra is Dr. Padilla personal secretary and she answers the office phone [...] may include dieticians, social workers, speech therapists, hot air furnace installer repairer, neurologist, and physical therapist. Dr. Chicas will provide these referrals as needed. Please let him know if you would like to request a specific referral.For your convenience, Dr. Chicas sees patients at several [facility] locations including [facility], [facility], and [facility]. While we try to make your [...] Mar 02 2018 2:05PM EST (Author) Normal [facility] Initial Visit (Otolaryngolog y)on 09-29-2017 Initial Visit (Otolaryngology) Chief ComplaintNew patient suspected cholesteatoma History of Present Dshojrc89 year old male referred by Dr. Head. When he was a child in [place] had a chronically draining ear and underwent [...] AM Vitals Vital Signs Recorded: 29Sep2017 11:23AMHeart [id number] suxl99Frnupw8 ft 2 ebUbbvtz644 lb BMI Cexacuskya36.65BSA Calculated2.59 Physical ExamCONSTITUTIONAL: No acute distressVOICE: No [...] assist you through your ENT care at [facility].Dr. Chicas is an Ear surgeon. This means that he specializes in taking care of patients with complex ear problems.Dr. Chicas's office number is [phone]. While you may see him at a satellite office, she has a team committed to help meet your healthcare needs at [facility]'s main campus. This number is the most direct way to communicate with the office.Audra is Dr. Padilla personal secretary and she answers the office phone [...] may include dieticians, social workers, speech therapists, hot air furnace installer repairer, neurologist, and physical therapist. Dr. Chicas will provide these referrals as needed. Please let him know if you would like to request a specific referral.For your convenience, Dr. Chicas sees patients at several [facility] locations including [facility], [facility], and [facility]. While we try to make your [...] ACTIVE -Retrospective By Protocol Authorization Ordered Normal [facility] Encounters Encounter Date Encounter Type Care Provider Facility Start: 07-14-2023 End: 07-14-2023 ambulatory ADELITA Whitaker PHILIPPE Not Available Start: 06-24-2023 End: 06-24-2023 ambulatory TONYA ESTRELLA Not Available Start: 06-03-2023 Telephone encounter Marcel cameron NP Work Phone: [facility] Start: 06-02-2023 End: 06-03-2023 ambulatory ANTONIO [...] End: 04-10-2020 Patient encounter procedure Adelita Philippe [facility] Start: 12-17-2018 End: 12-20-2018 Patient encounter procedure [facility] Start: 12-17-2018 End: 12-19-2018 Subsequent hospital visit by physician [facility] Rad[facility] Comment on above: Low back pain, [...] ENT NIC[facility] [address] [place] [phone] Al Chi S, DO [address] [place] [address] [facility] Start: 07-14-2023 End: 07-14-2023 Patient encounter procedure 07/14/2023 8:45 AM EDT Office Visit [facility] [address] [place] [phone] Adelita Epperson MD [address] [place] [address] [facility] Start: 06-23-2023 End: 06-23-2023 Patient encounter procedure 06/23/2023 8:00 AM EST Office Visit [facility] [address] [facility] [address] [place] [address] Marcel Haley, FERRYBOAT DECKHAND [address] [facility] [address] [place] [address] [facility] Start: 06-16-2023 End: 06-16-2023 ambulatory 06/16/2023 4:15 PM EST Treatment [facility] [address] [facility] [place] [phone] Antonio Solomon, PT [address] [facility] [address] [facility] Start: 06-09-2023 End: 06-09-2023 ambulatory 06/09/2023 4:30 PM EST Treatment [facility] [address] [facility] [place] [address] Antonio Solomon, PT [address] [facility] [place] [address] [facility] Start: 06-04-2023 End: 06-04-2024 MR Lumbar spine WO contrast MR lumbar spine wo contrast Imaging Routine DDD (degenerative disc disease), lumbar Lumbar herniated disc Expected: 06/04/2023 (Approximate), Expires: 06/04/2024 [facility] Work Phone: Comment on above: Expected: 06/04/2023 (Approximate), Expires: 06/04/2024 Start: 12-27-2022 Influenza vaccination Influenza Vacc ine (#1) [facility] Start: 12-27-2018 Influenza vaccination Flu vaccine (# 1) [place] Start: 1999 DTaP/Tdap/Td vaccine (1 - Tdap) DTaP/Tdap/Td vaccine (1 - Tdap) [place] Start: 1995 HIV screen HIV screen [place], [place] Start: 1993 Varicella Vaccine (1 of 2 - 13+ 2-dose series) Varicella Vaccine (1 of 2 - 13+ 2-dose series) [place] Start: 1986 Pneumococcal 0-64 ye ars Vaccine (1 of 1 - PPSV23) Pneumococcal 0-64 years Vaccine (1 of 1 - PPSV23) [place] Payers Date Payer Category Payer Unknown BCBS BCBS xxxxxx [id number] 2020-Present [phone] [address] [place] [address] [id number] 2017 Private Health Insurance [id number] 2017 Private Health Insurance [employer] A ETNA xxxxxxxxxx 2017-Present [phone] [address] [place] [address] xxxxxxxxxx [id number] 1980 Unknown [id number] 2.16.840.1.591792.3.579.2 .356 1980 Unknown [id number] 2.16.840.1.370912.3.579.2 .356 1980 Unknown [id number] 2.16.840.1.580455.3.579.2 .356 1980 Unknown [id number] 2.16.840.1.047009.3.579.2 .185 1980 Unknown [id number] 2.16.840.1.641833.3.579.2 .593 1980 Unknown [id number] 2.16.840.1.593803.3.579.2 .593 1980 Unknown [id number] 2.16.840.1.024035.3.579.2 .593 1980 Unknown [id number] 2.16.840.1.770315.3.579.2 .593 1980 Unknown [id number] 2.16.840.1.282475.3.579.2 .593 1980 Unknown [id number] 2.16.840.1.164113.3.579.2 .593 1980 Unknown [id number] 2.16.840.1.598596.3.579.2 .1258 1980 Unknown [id number] 2.16.840.1.206883.3.579.2 .1258 1980 Unknown [id number] 2.16.840.1.976781.3.579.2 .1258 1980 Unknown [id number] 2.16.840.1.570198.3.579.2 .1259 1980 Unknown [id number] 2.16.840.1.057910.3.579.2 .1259 1980 Unknown [id number] 2.16.840.1.838364.3.579.2 .1258 1980 Unknown [id number] 2.16.840.1.424568.3.579.2 .1259 1980 Unknown [id number] 2.16.840.1.630291.3.579.2 .1258 1980 Unknown [id number] 2.16.840.1.226873.3.579.2 .1259 1980 Unknown [id number] 2.16.840.1.777052.3.579.2 .1259 1980 Unknown [id number] 2.16.840.1.604489.3.579.2 .1259 1959 Unknown [id number] Self-pay Self Pay [id number] Social History Date Type Detail Facility Start: 01-16-2018 End: 02-25-2023 Tobacco smoking status NHIS Current every day smoker [place] Start: 01-16-2018 End: 11-07-2022 Alcohol intake No [place] Sex Assigned At Not on file [place] Start: 1980 Sex Assigned At Male [...] and would like to do MRI at [facility]. [facility] Note 06-03-2023 Telephone Encounter - Nida Gross - 06/03/2023 2:47 PM EST Note Date & Type Note Facility 06-03-2023 Miscellaneous Notes Formattin g of this note might be different from the original. Pt called back and would like to do MRI at [facility]. documented in this encounter [facility] Consultation note 07-23-2022 Note Date & Type Note Facility 07-23-2022 Note PAIN MANAGEMENT CONS ULTATION CONSULTATION DATE: 07/23/2022 ADDENDUM: The dictation mentions denervation of the L4-5, L5-S1 facet joint under fluoroscopic guidance by using radiofrequency ablation on the left side. The dictation should read: Proceed with radiofrequency ablation of the L2-3, L4-5 levels under fluoroscopic guidance on the left side. [facility] Consultation note 07-23-2022 Note Date & Type Note Facility 07-23-2022 Note PAIN MANAGEMENT CONS ULTATION CONSULTATION DATE: 07/23/2022 ADDENDUM: The dictation mentions denervation of the L4-5, L5-S1 facet joint under fluoroscopic guidance by using radiofrequency ablation on the left side. The dictation should read: Proceeded with radiofrequency ablation of the L2-3, L4-5 levels under fluoroscopic guidance on the left side. [facility] Consultation note 07-23-2022 Note Date & [...] to proceed with the outlined plan. 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 He reports 0/10 pain [...] in six months' time for re-evaluation. [facility] Consultation note 01-03-2022 Note Date & [...] three months' time, unless otherwise indicated. [facility] Consultation note 10-04-2021 Note Date & [...] gluconate 800 mg q.h.s. in addition to wqxg-wqt-muesshr ibuprofen 600 mg q.a.m. before work. Daily stretching and the use of heat were encouraged to aid with the spasms. We discussed about different vitamin regimens and the patient was willing to try. He will be followed up in the clinic in three months' time unless otherwise indicated. The patient agrees with the plan of care. [facility] Signed and Approved by: SEAN WELLS . 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 Directives and Living Will Power of Enrobing Machine Corder Advance Directive Response Recorded Date/ Time Advance [...] MR lumbar spine wo contrast Marcel Haley, FERRYBOAT DECKHAND [address] [facility] [address] [place] [address] Referral ID Status Reason Start Date Expiration Date V isits Requested Visits Authorized [id number] Pending Review 06/04/2023 12/01/2023 1 1 Additional Source Comments (unrecognized sect ion and content) No Status Records FoundNo Status Records FoundNo Status Records FoundNo Status Records FoundNo Status Records FoundNo Status Records FoundNo Status Records Found INFORMATION SOURCE (unrecogn ized section and content) DATE CREATED AUTHOR 04/05/2018 [facility] DATE CREATED AUTHOR AUTHOR'S ORGANIZ ATION 04/05/2018 [facility] DATE CREATED AUTHOR AUTHOR'S ORGANIZ ATION [facility] DATE CREATED AUTHOR AUTHOR'S ORGANIZ ATION 01/31/2019 [facility] DATE CREATED AUTHOR AUTHOR'S ORGANIZ ATION 08/08/2021 [facility] dical Specialist DATE CREATED AUTHOR AUTHOR'S ORGANIZ ATION 08/09/2022 [facility] DATE CREATED AUTHOR AUTHOR'S ORGANIZ ATION 07/14/2023 [facility] dical Specialists EPIC Care Teams (unrecognized sec tion and content) Cell Coverer Relationship Specialty Start Date End Date Adelita Epperson MD [address] [place] [address] PCP - General Internal Medicine [...] BE BASED ON THE PRIMARY CLINICAL RECORDS. [employer] [facility]. provides no warranty or guarantee of the accuracy or completeness of information in this document.
[2023-07-29 07:04] VITALS: BP 153/101; PULSE 71; TEMP 36.8; O2SAT 96
[2023-07-29] MEDS: 0.9 % SODIUM CHLORIDE 500 ML IV (07:12)
[2023-07-29] MEDS: BUPIVACAINE HCL 0.25% PF 25 MG/10 ML VIAL 2 ML INJ (07:51)
[2023-07-29] MEDS: METHYLPREDNISOLONE ACETATE 40 MG/ML VIAL 20 MG INJ (07:51)
[2023-07-29] MEDS: LIDOCAINE HCL 2% 400 MG/20 ML MDV 6 ML INJ (07:51)
[2023-07-29 07:57] VITALS: BP 132/99; PULSE 94; TEMP 37; O2SAT 94
[2023-07-29 08:01] VITALS: BP 133/110; PULSE 95; TEMP 37; O2SAT 94
--- NOTE | 2023-07-29 08:22 | W.PM.PROCNOT ---
Date of procedure: 07/29/23 Pre-op diagnosis: LUMBAR SPONDYLOSIS Post-op diagnosis: same as pre-op Procedure: Left Lumbar 2/3, 4/5 Radiofrequency ablation Under fluoroscopic guidance Rhizotomy was created using radio frequency ablation at 80?C for 90 seconds 1 to 2 lesions created at each site. Post lesioning injection of 2 mL each of 0.25% Marcaine and 2% lidocaine with Depo-Medrol 40mg. 0.5 to 1 mL injected at each site IV in place yes If Intravenous fluids: NS at KVO Anesthesia local 2% lidocaine for Anesthesia Other: MAC Timeout process compliant After informed consent obtained.Patient brought to the procedure room placed in the prone position skin overlying the area was prepped and draped in a sterile fashion using betadine. 25 gauge needle was used to create a skin wheal over each of the targeted areas utilizing 2% lidocaine. A rhizotomy needle with a 10 mm active tip was inserted over each of the anesthetized areas and directed towards each of the medial branches accomplished under fluoroscopic guidance. after encountering the same we had positive sensory stimulation, negative motor stimulation was noted. lesions were then created. Post lesioning, steroid solution was injected needles removed. Patient was transferred to recovery room in stable condition to be discharged home after meeting criteria. Anesthesia: MAC Surgeon: Héctor Figueroa Condition: stable
== END 2023-07-29 08:21 | disposition home or self-care (01) ==
PROVIDERS: PCP Internal Medicine; Visit Provider Anesthesiology Pain Medicine
PROC: (CPT 1992; principal; 2023-07-29 07:40)
DX: M47.816 Spondylosis without myelopathy or radiculopathy, lumbar region (principal)
CPT/HCPCS: 64635; 64636; J1010; J2704

== ENCOUNTER 2023-08-21 07:38 | Outpatient (OUT) | payer BC, SELFPAY ==
--- OUTSIDE RECORDS SUMMARY | 2023-08-21 07:41 | XMS_ITS | CCD ---
Author Organization [facility] Care Team Providers Care Beam Carrier Hauler Pusher Name Role Phone Jennifer Muller Unavailable Unavailable Juan Francisco, Maroun Tanus Unavailable Unavailable Adelita Epperson Unavailable Unavailable Juan Francisco, Maroun Tanus Unavailable Unavailable Pelon Head Unavailable Unavail able Adelita Epperson Unavailable Unavailable Juan Francisco, Maroun Tanus Unavailable Unavailable Juan Francisco, Maroun Tanus Unavailable Unavailable Adelita Epperson Unavailable Unavailable ADELITA EPPERSON Primary Care Unavailable Adelita Epperson Primary Care Provider Adelita Epperson Primary Care Provider [phone] Dereck Morrow Attending Provider [phone] LAKSHMIPATHY ., NARENDRANATH Attending Mell vailable [...] Unavailable APLING, MARCEL B Referring Unavailable SURJIT, ANOTNIO Doherty Attending Unavailable APLING, MARCEL B Referring [...] width (RBC) [Ratio] 13.0 % Normal 11.0-15.0 [facility] Waxer Comment on above: Performed By: #### L IPD, CBC, CMP #### [facility] [address], [place] [id number] Hematocrit (Bld) [Volume fraction] 46.2 % Normal 38.5-50.0 [facility] [employer] Comment on above: Performed By: #### L IPD, CBC, CMP #### [facility] [address], [place] [id number] Hemoglobin (Bld) [Mass/Vol] 15.6 g/dL Normal 13.0-17.1 [facility] [employer] Comment on above: Performed By: #### L IPD, CBC, CMP #### [facility] [address], [place] [id number] MCH (RBC) [Entitic mass] 29.8 pg Normal 27.0-33.0 [facility] [employer] Comment on above: Performed By: #### L IPD, CBC, CMP #### [facility] [address], [place] [id number] MCHC (RBC) [Mass/Vol] 33.8 g/dL Normal 32.0-36.0 [facility] Comment on above: Performed By: #### L IPD, CBC, CMP #### [facility] [address], [place] [id number] MCV (RBC) [Entitic vol] 88 fL Normal 80-100 [facility] [employer] Comment on above: Performed By: #### L IPD, CBC, CMP #### [facility] [address], [place] [id number] Platelet mean volume (Bld) [Entitic vol] 11.20 fL Normal 7.50-12.50 [facility] Comment on above: Performed By: #### L IPD, CBC, CMP #### [facility] [address], [place] [id number] Platelets (Bld) [#/Vol] 231 10*3/uL Normal 140-400 [facility] Comment on above: Performed By: #### L IPD, CBC, CMP #### [facility] [address], [place] [id number] RBC (Bld) [#/Vol] 5.24 10*6/uL Normal 4.20-5.80 [facility] Porcel[employer] Waxer Comment on above: Performed By: #### L IPD, CBC, CMP #### [facility] [address], [place] [id number] RDW-SD 42.1 fL Normal 37.0-50.0 [facility] [employer] Comment on above: Performed By: #### L IPD, CBC, CMP #### [facility] [address], [place] [id number] WBC (Bld) [#/Vol] 9.2 10*3/uL Normal 3.8-11.0 [facility] [employer]cel[employer] Waxer Comment on above: Performed By: #### L IPD, CBC, CMP #### [facility] [address], [place] [id number] [facility] 08-07-2021 Albumin [Mass/Vol] 4.7 g/dL Normal 3.6-5.1 [facility] [employer] Comment on above: Performed By: #### L IPD, CBC, CMP #### [facility] [address], [place] [id number] Albumin/Globulin [Mass ratio] 2.4 {ratio} Normal 1.0-2.5 [facility] [employer] Comment on above: Performed By: #### L IPD, CBC, CMP #### [facility] [address], [place] [id number] ALP [Catalytic activity/Vol] 76 U/L Normal 40-129 [facility] Comment on above: Performed By: #### L IPD, CBC, CMP #### [facility] [address], [place] [id number] ALT [Catalytic activity/Vol] 52 U/L High 9-46 [facility] Specialist Comment on above: Result Comment: 03/28 Female reference range changed. Performed By: #### L IPD, CBC, CMP #### [facility] [address], [place] [id number] Anion gap [Moles/Vol] 18 mmol/L Normal 12-20 [facility] Comment on above: Result Comment: Effe ctive 05/03/2019 reference range changed. Performed By: #### L IPD, CBC, CMP #### [facility] [address], [place] [id number] AST [Catalytic activity/Vol] 36 U/L Normal 10-40 [facility] Special[facility] Comment on above: Performed By: #### L IPD, CBC, CMP #### [facility] [address], [place] [id number] Bilirubin [Mass/Vol] 1.27 mg/dL High 0.30-1.20 [facility] Comment on above: Performed By: #### L IPD, CBC, CMP #### [facility] [address], [place] [id number] BUN/CREA 10 Ratio Normal 6-22 [facility] Comment on above: Performed By: #### L IPD, CBC, CMP #### [facility] [address], [place] [id number] Calcium [Mass/Vol] 9.6 mg/dL Normal 8.6-10.2 [facility] Comment on above: Performed By: #### L IPD, CBC, CMP #### [facility] [address], [place] [id number] Chloride [Moles/Vol] 104 mmol/L Normal 98-107 [facility] Special[facility] Comment on above: Performed By: #### L IPD, CBC, CMP #### [facility] [address], [place] [id number] CO2 [Moles/Vol] 22 mmol/L Normal 20-31 [facility] Comment on above: Performed By: #### L IPD, CBC, CMP #### [facility] [address], [place] [id number] Creatinine [Mass/Vol] 1.0 mg/dL Normal 0.7-1.4 [facility] Comment on above: Performed By: #### L IPD, CBC, CMP #### [facility] [address], [place] [id number] eGFRAA 96 mL/min/1.73m2 Normal >60 [facility] [employer] Comment on above: Performed By: #### L IPD, CBC, CMP #### [facility] [address], [place] [id number] eGFRNAA 80 mL/min/1.73m2 Normal >60 [facility] Comment on above: Performed By: #### L IPD, CBC, CMP #### [facility] [address], [place] [id number] Globulin (S) [Mass/Vol] 2.0 g/dL Normal 1.9-3.7 [facility] Comment on above: Performed By: #### L IPD, CBC, CMP #### [facility] [address], [place] [id number] Glucose [Mass/Vol] 76 mg/dL Normal 65-99 [facility] [employer] Comment on above: Result Comment: For FASTING Glucose --- ADA reference ranges: Normal 65-99 mg/dl Prediabetes 100-125 Diabetes >/= 126 Performed By: #### L IPD, CBC, CMP #### [facility] [address], [place] [id number] Potassium [Moles/Vol] 4.7 mmol/L Normal 3.5-5.5 [facility] [facility] Comment on above: Result Comment: Spec imen is hemolyzed. Results may be affected. Performed By: #### L IPD, CBC, CMP #### [facility] [address], [place] [id number] Protein [Mass/Vol] 6.7 g/dL Normal 6.1-8.1 [facility] [employer] Comment on above: Performed By: #### L IPD, CBC, CMP #### [facility] [address], [place] [id number] Sodium [Moles/Vol] 139 mmol/L Normal 135-146 [facility] Comment on above: Performed By: #### L IPD, CBC, CMP #### [facility] [address], [place] [id number] Urea nitrogen [Mass/Vol] 11 mg/dL Normal 7-25 [facility] Comment on above: Performed By: #### L IPD, CBC, CMP #### [facility] [address], [place] [id number] Lipid Panelon 08-07-2021 Cholesterol [Mass/Vol] 154 mg/dL Normal 125-200 [facility] Comment on above: Result Comment: Low risk < 200mg/dL Borderline risk 201-239 mg/dl High risk > or equal to 240 Performed By: #### L IPD, CBC, CMP #### [facility] [address], [place] [id number] Cholesterol in HDL [Mass/Vol] 40 mg/dL Low >40 [facility] Comment on above: Result Comment: High Cardiovascular Risk HDL <40 mg/dL Low Cardiovascular Risk HDL > or equal to 60 mg/dl Performed By: #### L IPD, CBC, CMP #### [facility] [address], [place] [id number] Cholesterol in LDL [Mass/Vol] 88 mg/dL Normal [facility] Comment on above: Result Comment: LDL ATP III CLASSIFICATION LDL less than 100 mg/dl Optimal LDL 100-129 mg/dl Near or above optimal LDL 130-159 Borderline high LDL 160-189 High LDL greater than 189 mg/dl Very High Performed By: #### L IPD, CBC, CMP #### [facility] [address], [place] [id number] Cholesterol in VLDL [Mass/Vol] 26 mg/dL Normal [facility] Special[facility] Comment on above: Performed By: #### L IPD, CBC, CMP #### [facility] [address], [place] [id number] Cholesterol.total/C holesterol in HDL [Mass ratio] 4 {ratio} Normal [facility]celain Waxer Comment on above: Performed By: #### L IPD, CBC, CMP #### [facility] [address], [place] [id number] Triglyceride [Mass/Vol] 129 mg/dL Normal 30-150 [facility] Comment on above: Result Comment: TRIG ATPIII CLASSIFICATIONS TRIG less than 150 mg/dl Normal TRIG 150-199 mg/dl Borderline High TRIG 200-500 mg/dl High TRIG greather than 500 mg/dl Very High Performed By: #### L IPD, CBC, CMP #### [facility] [address], [place] [id number] NR MR L-SPINE WO/W CONTRASTo n 01-13-2019 NR MR L-SPINE WO/W CONTRAST Patient Name: LUÍS MORAN STUDY: MR L-SPINE WO/W CONTRAST; 01/13/2019 10:05 am INDICATION: Radiculopathy, lumbar region. History of laminectomy. Right leg pain and numbness. COMPARISON: None. ACCESSION NUMBER(S): [id number] ORDERING CLINICIAN: ADELITA HENRY TECHNIQUE: Multisequential MR [...] Electronically signed by: BJ MUNGUIA MD Normal [facility] XR LUMBAR SPINE (MIN 4 VIEWS )on 12-17-2018 XR LUMBAR SPINE (MIN 4 VIEWS) Radiology exam is complete. No Radiologist dictation. Please follow up with ordering provider. Final result Normal [facility] Radiology exam is complete. No Radiologist dictation. Please follow up with ordering provider. [facility], [place] Established Visit (Otolaryng ology)on 03-02-2018 Established Visit (Otolaryngology) Chief ComplaintNew patient suspected cholesteatoma History of Present IllnessHere today for mastoid bowl cleaning and follow up. Denies any interval otologic complaints since last being seen. Recall: 37 year old male referred by Dr. Head. When he was a child in [place] had a chronically draining ear and underwent [...] assist you through your ENT care at [facility].Dr. Chicas is an Ear surgeon. This means that he specializes in taking care of patients with complex ear problems.Dr. Chicas's office number is [phone]. While you may see him at a satellite office, she has a team committed to help meet your healthcare needs at [facility]'s main campus. This number is the most direct way to communicate with the office.Audra is Dr. Padilla barrel burner and she answers the office phone from [...] may include dieticians, social workers, speech therapists, meeting planner, neurologist, and physical therapist. Dr. Chicas will provide these referrals as needed. Please let him know if you would like to request a specific referral.For your convenience, Dr. Chicas sees patients at several [facility] locations including [facility], [facility], and [facility]. While we try to make your [...] Mar 02 2018 2:05PM EST (Author) [facility] Initial Visit (Otolaryngolog y)on 09-29-2017 Initial Visit (Otolaryngology) Chief ComplaintNew patient suspected cholesteatoma History of Present [id number] year old male referred by Dr. Head. When he was a child in [place] had a chronically draining ear and underwent [...] AM Vitals Vital Signs Recorded: 29Sep2017 11:23AMHeart [id number] iqkf74Vnqtwe8 ft 2 ggRcpntq272 lb BMI Rbqddfpdcy71.65BSA Calculated2.59 Physical ExamCONSTITUTIONAL: No acute distressVOICE: No [...] assist you through your ENT care at [facility].Dr. Chicas is an Ear surgeon. This means that he specializes in taking care of patients with complex ear problems.Dr. Chicas's office number is [phone]. While you may see him at a satellite office, she has a team committed to help meet your healthcare needs at [facility]'s main campus. This number is the most direct way to communicate with the office.Audra is Dr. Padilla barrel burner and she answers the office phone from [...] may include dieticians, social workers, speech therapists, meeting planner, neurologist, and physical therapist. Dr. Chicas will provide these referrals as needed. Please let him know if you would like to request a specific referral.For your convenience, Dr. Chicas sees patients at several [facility] locations including [facility], [facility], and [facility]. While we try to make your [...] ACTIVE -Retrospective By Protocol Authorization Ordered [facility] Encounters Encounter Date Encounter Type Care Provider Facility Start: 07-14-2023 End: 07-14-2023 ambulatory ADELITA Whitaker PHILIPPE Not Available Start: 06-24-2023 End: 06-24-2023 ambulatory TONYA ESTRELLA Not Available Start: 06-03-2023 Telephone encounter Marcel cameron NP Work Phone: [facility] Start: 06-02-2023 End: 06-03-2023 ambulatory ANTONIO [...] End: 04-10-2020 Patient encounter procedure Adelita Philippe [facility] [place] Start: 12-17-2018 End: 12-20-2018 Patient encounter procedure [facility] Start: 12-17-2018 End: 12-19-2018 Subsequent hospital visit by physician [facility] Radiology Comment on above: Low back [...] ENT NICOL [address] [place] [id number] Al Chi S, DO [address] [place] [address] [facility] Start: 07-14-2023 End: 07-14-2023 Patient encounter procedure 07/14/2023 8:45 AM EDT Office Visit [facility] [address] [place] [phone] Adelita Epperson MD [address] [place] [address] [facility] Start: 06-23-2023 End: 06-23-2023 Patient encounter procedure 06/23/2023 8:00 AM EST Office Visit [facility] [address] [facility] [address] [place] [address] Marcel Haley, TRUST VAULT CUSTODIAN [address] [facility] [address] [place] [address] [facility] Start: 06-16-2023 End: 06-16-2023 ambulatory 06/16/2023 4:15 PM EST Treatment [facility] [address] [facility] [place] [place] [phone] Antonio Solomon, PT [address] [facility] [place] [address] [facility] Start: 06-09-2023 End: 06-09-2023 ambulatory 06/09/2023 4:30 PM EST Treatment [facility] [address] [facility] [place] [address] Antonio Solomon, PT [address] [facility] [place] [address] [facility] Start: 06-04-2023 End: 06-04-2024 MR Lumbar spine WO contrast MR lumbar spine wo contrast Imaging Routine DDD (degenerative disc disease), lumbar Lumbar herniated disc Expected: 06/04/2023 (Approximate), Expires: 06/04/2024 [facility] Work Phone: Comment on above: Expected: 06/04/2023 (Approximate), Expires: 06/04/2024 Start: 12-27-2022 Influenza vaccination Influenza Vacc ine (#1) [facility] Start: 12-27-2018 Influenza vaccination Flu vaccine (# 1) [place], [place] Start: 1999 DTaP/Tdap/Td vaccine (1 - Tdap) DTaP/Tdap/Td vaccine (1 - Tdap) [place], [place] Start: 1995 HIV screen HIV screen [place], [place] Start: 1993 Varicella Vaccine (1 of 2 - 13+ 2-dose series) Varicella Vaccine (1 of 2 - 13+ 2-dose series) [place], [place] Start: 1986 Pneumococcal 0-64 ye ars Vaccine (1 of 1 - PPSV23) Pneumococcal 0-64 years Vaccine (1 of 1 - PPSV23) [place], [place] Payers Date Payer Category Payer Unknown BCBS BCBS xxxxxx [id number] 2020-Present [phone] [address] [place] [address] [id number] 2017 Private Health Insurance [id number] 2017 Private Health Insurance [employer]ET[employer] A ETNA xxxxxxxxxx 2017-Present [phone] [address] [address] [place] [address] xxxxxxxxxx [id number] 1980 Unknown [id number] 2.16.840.1.969633.3.579.2 .356 1980 Unknown [id number] 2.16.840.1.654986.3.579.2 .356 1980 Unknown [id number] 2.16.840.1.354821.3.579.2 .356 1980 Unknown [id number] 2.16.840.1.661909.3.579.2 .185 1980 Unknown [id number] 2.16.840.1.903337.3.579.2 .593 1980 Unknown [id number] 2.16.840.1.177211.3.579.2 .593 1980 Unknown [id number] 2.16.840.1.582019.3.579.2 .593 1980 Unknown [id number] 2.16.840.1.136710.3.579.2 .593 1980 Unknown [id number] 2.16.840.1.064672.3.579.2 .593 1980 Unknown [id number] 2.16.840.1.587528.3.579.2 .593 1980 Unknown [id number] 2.16.840.1.452949.3.579.2 .1258 1980 Unknown [id number] 2.16.840.1.614618.3.579.2 .1258 1980 Unknown [id number] 2.16.840.1.702625.3.579.2 .1258 1980 Unknown [id number] 2.16.840.1.431833.3.579.2 .1259 1980 Unknown [id number] 2.16.840.1.818385.3.579.2 .1259 1980 Unknown [id number] 2.16.840.1.846500.3.579.2 .1258 1980 Unknown [id number] 2.16.840.1.982435.3.579.2 .1259 1980 Unknown [id number] 2.16.840.1.887763.3.579.2 .1258 1980 Unknown [id number] 2.16.840.1.422334.3.579.2 .1259 1980 Unknown [id number] 2.16.840.1.455100.3.579.2 .1259 1980 Unknown [id number] 2.16.840.1.708711.3.579.2 .1259 1959 Unknown [id number] Self-pay Self Pay [id number] Social History Date Type Detail Facility Start: 01-16-2018 End: 02-25-2023 Tobacco smoking status NHIS Current every day smoker [place], [place] Start: 01-16-2018 End: 11-07-2022 Alcohol intake No [place] Sex Assigned At Not on file [place], [place] Start: 1980 Sex Assigned At Male [...] and would like to do MRI at [facility]. [facility] Note 06-03-2023 Telephone Encounter - Nida Gross - 06/03/2023 2:47 PM EST Note Date & Type Note Facility 06-03-2023 Miscellaneous Notes Formattin g of this note might be different from the original. Pt called back and would like to do MRI at [facility]. documented in this encounter [facility] Consultation note 07-23-2022 Note Date & Type Note Facility 07-23-2022 Note PAIN MANAGEMENT CONS ULTATION CONSULTATION DATE: 07/23/2022 ADDENDUM: The dictation mentions denervation of the L4-5, L5-S1 facet joint under fluoroscopic guidance by using radiofrequency ablation on the left side. The dictation should read: Proceed with radiofrequency ablation of the L2-3, L4-5 levels under fluoroscopic guidance on the left side. [facility] Consultation note 07-23-2022 Note Date & Type Note Facility 07-23-2022 Note PAIN MANAGEMENT CONS ULTATION CONSULTATION DATE: 07/23/2022 ADDENDUM: The dictation mentions denervation of the L4-5, L5-S1 facet joint under fluoroscopic guidance by using radiofrequency ablation on the left side. The dictation should read: Proceeded with radiofrequency ablation of the L2-3, L4-5 levels under fluoroscopic guidance on the left side. [facility] Consultation note 07-23-2022 Note Date & [...] to proceed with the outlined plan. 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 He reports 0/10 pain [...] in six months' time for re-evaluation. [facility] Consultation note 01-03-2022 Note Date & Type [...] three months' time, unless otherwise indicated. [facility] Consultation note 10-04-2021 Note Date & Type [...] gluconate 800 mg q.h.s. in addition to znwc-lix-riejzcj ibuprofen 600 mg q.a.m. before work. Daily stretching and the use of heat were encouraged to aid with the spasms. We discussed about different vitamin regimens and the patient was willing to try. He will be followed up in the clinic in three months' time unless otherwise indicated. The patient agrees with the plan of care. [facility] Signed and Approved by: SEAN WELLS . 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 Advance Directive Response Recorded Date/ Time Advance [...] MR lumbar spine wo contrast Marcel Haley, TRUST VAULT CUSTODIAN [address] [facility] [address] [place] [address] Referral ID Status Reason Start Date Expiration Date V isits Requested Visits Authorized [id number] Pending Review 06/04/2023 12/01/2023 1 1 Additional Source Comments (unrecognized sect ion and content) No Status Records FoundNo Status Records FoundNo Status Records FoundNo Status Records FoundNo Status Records FoundNo Status Records FoundNo Status Records Found INFORMATION SOURCE (unrecogn ized section and content) DATE CREATED AUTHOR 04/05/2018 [facility] DATE CREATED AUTHOR AUTHOR'S ORGANIZ ATION 04/05/2018 [facility] DATE CREATED AUTHOR AUTHOR'S ORGANIZ ATION 12/20/2018 [facility] DATE CREATED AUTHOR AUTHOR'S ORGANIZ ATION 01/31/2019 [facility] DATE CREATED AUTHOR AUTHOR'S ORGANIZ ATION 08/08/2021 [facility] dical Specialist DATE CREATED AUTHOR AUTHOR'S ORGANIZ ATION 08/09/2022 [facility] DATE CREATED AUTHOR AUTHOR'S ORGANIZ ATION 07/14/2023 [facility] dical Specialists EPIC Care Teams (unrecognized sec tion and content) Beam Carrier Hauler Pusher Relationship Specialty Start Date End Date Adelita Epperson MD [address] [place] [address] PCP - General Internal Medicine [...] BE BASED ON THE PRIMARY CLINICAL RECORDS. [facility]. provides no warranty or guarantee of the accuracy or completeness of information in this document.
--- NOTE | 2023-08-21 07:50 | P.CN_ITS ---
Consult Note: HPI Data of Consult Patient: known to practice within the last 3 years Consult date: 07/02/23 Requesting Physician: Jeanette Castro NP Primary Care Provider: ADELITA EPPERSON Consult Narrative Reason for consult: f/u Narrative: Omar Voss a pleasant 43 year old male presents for evaluation and management of chronic low back pain, hx of LX DDD and lumbar radiculopathy. Pain today 1/10 in low back, pressure shark stabbing off and on. patient finds mild benefit from tylenol, NSAIDs. Does utilize THC gummies for sleep. Has tried baclofen in the past with unknown benefit. Recently underwent repeat Left L2,3 L4,5 facet RFA with 75% improvement ongoing. cc:: CC: Jeanette Castro NP Review of Systems ROS Status of ROS 10 or more systems reviewed and unremark able except as noted in history and below Musculoskeletal Reports: back pain PFSH PFSH Surgical History Hx of tonsillectomy ?Z90.89 - Acquired absence of other organs (ICD-10) History of tympanoplasty ?Z98.890 - Other specified postprocedural states (ICD-10) History of lumbar surgery ?Z98.890 - Other specified postprocedural states (ICD-10) Meds Home Medications and Allergies Home Medications ?Medication ?Instructions ?Recorded ?Confirmed ?Type thc gummies PO .qhs 07/03/23 History cyclobenzaprine 10 mg tablet 10 mg PO TID PRN muscle spasm #20 07/27/23 07/29/23 Rx tabs ibuprofen 800 mg tablet 800 mg PO Q8H PRN pain #20 tabs 07/27/23 07/29/23 Rx Allergies Allergy/AdvReac Type Severity Reaction Status Date / Time No Known Drug Allergies Allergy Verified 07/29/23 07:09 Exam Constitutional Documenting provider has reviewed patient's vital signs: yes Common normals: no apparent distress, oriented x3, healthy appearing, alert and well nourished General appearance: cooperative HENMT Common normals: normocephalic, hearing grossly normal bilaterally and moist oral mucous membranes Head and scalp: normocephalic Eye Common normals: PERRL Pupil: PERRL Neck & C-Spine Common normals: full ROM General: normal visual inspection Chest Common normals: inspection of chest normal Respiratory Common normals: normal respiratory effort, no retractions and no use of accessory muscles Back & Pelvis Lumbar spine/lower back: normal to inspection and lumbar ROM normal Other: negative facet loading no radiculopathy on exam, sensation intact BLE, no weakness of BLE SLR negative mild axial low back pain Extremity Common normals: normal to inspection and full ROM Neuro Common normals: oriented x3, CN's II-XII intact bilaterally, moves all extremities, no focal motor deficits, no sensory deficits noted, deep tendon reflexes 2+ bilaterally and gait normal Sensorium/orientation: alert Motor exam: strength 5/5 throughout and no movement abnormalities noted Psych Common normals: mental status grossly normal, thought process normal, cooperative, affect normal, speech normal and activity/motor behavior normal Speech: normal speech Thought process: normal thought process Results Additional Findings Additional findings: If on a controlled substance or opioids, I have checked an [place] report on this patient and there are no aberrancies noted in the prescribing history.??If on a controlled substance or opioid a drug screen was completed and reviewed within the last year, and if there has not been a drug screen completed we ordered one today to monitor higher risk, state monitored pain medication use. As part of providing excellent, safe, comprehensive care, the following was completed at our patient's visit: 1. A medication reconciliation and review to ensure accurate knowledge of current/active medications, including asking our patients to inform us about any [id number] medications or herbal remedies/nutritional supplements/alternative remedies. 2. A review to specifically ensure our patients have had annual screening for screening for depression, screening for tobacco use, and screening for unhealthy alcohol use. For concerning screenings had a discussion with the patient, provided patient education, and recommended follow-up with primary care provider when appropriate. If patient noted with a risk of falling, they received education on strength, gait, and balance training to prevent future risk of falling. Assessment and Plan Assessment and Plan (1) Lumbar spondylosis: Assessment and Plan: The patient has had over 3 months of moderate to severe low back pain with functional impairment and inadequate response to conservative care including NSAIDS (unless there are contraindication such as concurrent blood thinners), multiple oral or topical pain medications, and home exercise program/physical therapy.? Patient has completed >6 weeks of guided home exercise program and/or formal physical therapy program without relief of their symptoms.? I have reviewed the imaging of the lumbar spine and no red flags were identified.? The imaging reveals radiographic findings consistent with lumbar spondylosis The Oswestry Disability Index was completed, and the patient scored a 22%.? The patient noted the following:?pain with lifting, pain with standing and walking, pain impacting sleep social life and travel Plan left L2-3 L4-5 facet RFA providing 75% improvement ongoing continue HEP as tolerated continue current medications as needed f/u 6 months, sooner if needed
== END 2023-08-21 07:39 | disposition home or self-care (01) ==
LOC: PM 07:38
PROVIDERS: PCP Internal Medicine; Visit Provider Nurse Practitioner
DX: M47.816 Spondylosis without myelopathy or radiculopathy, lumbar region (principal)
CPT/HCPCS: G0463

== ENCOUNTER 2023-12-16 12:07 | Outpatient (OUT) | payer BC, SELFPAY ==
--- NOTE | 2023-12-16 | CONS_ITS ---
CONSULTATION DATE: 12/16/2023 TO: Dr. Paez CHIEF COMPLAINT: Includes right sided lower back pain, hip pain, leg pain. HISTORY: He is complaining of 5-7/10 pain in the above mentioned areas, described as a deep, throbbing pain, which occasionally becomes quite sharp, increased with activities such as standing and walking. He feels most comfortable in the semi-recumbent position. He also reports that he has to change positions frequently to achieve some relief. He denies any change in bowel and bladder habits and reports some moderate tingling and weakness in his right lower extremity. He has undergone physical therapy three months ago, which offered him no relief. He had been using THC gummies in the past. Currently, he is not taking any medication. He is intolerant to nonsteroidal use. EXAMINATION: Notable for patient having hypoesthesia along the right L4 and L5 dermatome, 3/5 strength of the right quadriceps, anterior tibialis and extensor hallucis, depressed right patellar reflex. Straight leg raise is equivocally positive at approximately 90 degrees. He had no signs consistent with myelopathy involving the lower extremities. He had a fair amount of myofascial spasm with myalgia of the lumbar paravertebral muscles. IMPRESSION: Our impression is patient with chronic pain secondary to right L4 and L5 radiculopathy with recent flare. His LESLEY on today?s visit is 36%. RECOMMENDATIONS: I have recommended he consider a right sided transforaminal epidural steroid injection at L4 and L5. I have placed him on Zonegran 50 mg at h.s. and baclofen 10 mg half a pill at h.s. As part of providing excellent, safe, comprehensive care, the following was completed at our patient's visit: 1. A medication reconciliation and review to ensure accurate knowledge of current/active medications, including asking our patients to inform us about any [id number] medications or herbal remedies/nutritional supplements/alternative remedies. 2. A review to specifically ensure our patients have had annual screening for: elevated body mass index (BMI, see intake chart for exact total), tobacco use, screening for depression, and screening for unhealthy alcohol use. When screening is concerning, patients are provided with education and the specific recommendation to discuss the concerning health issue and treatment options with their primary care provider. EDD
== END 2023-12-16 12:08 | disposition home or self-care (01) ==
PROVIDERS: PCP Internal Medicine; Visit Provider Anesthesiology Pain Medicine
DX: M54.50 Low back pain, unspecified (principal); M54.16 Radiculopathy, lumbar region
CPT/HCPCS: G0463

== ENCOUNTER 2024-01-05 07:35 | Day surgery (SDC) | payer BC, SELFPAY ==
--- OUTSIDE RECORDS SUMMARY | 2024-01-05 07:40 | XMS_ITS | CCD ---
Author Organization [facility] Care Team Providers Care Executive Asst Name Role Phone Jennifer Muller Unavailable Unavailable Juan Francisco, Maroun Tanus Unavailable Unavailable Adelita Epperson Unavailable Unavailable Juan Francisco, Maroun Tanus Unavailable Unavailable Pelon Head Unavailable Unavail able Adelita Epperson Unavailable Unavailable Juan Francisco, Maroun Tanus Unavailable Unavailable Juan Francisco, Maroun Tanus Unavailable Unavailable Adelita Epperson Unavailable Unavailable ADELITA EPPERSON Primary Care Unavailable Adelita Epperson Primary Care Provider Adelita Epperson Primary Care Provider [phone] Dereck Morrow Attending Provider LAKSHMIPATHY ., NARENDRANATH Attending Mell vailable LAKSHMIPATHY ., NARENDRANATH Admitting Mell vailable JOSE ROBERTO NGUYEN Consulting Unavailable DR ADELITA EPPERSON Primary Care Unavailable HUMAIRA LAO Consulting Unavailable LAKSHMIPATHY ., ESTRELLAATH Consulting Mell rachelble DR ADELITA EPPERSON Consulting Unavailable DR ADELITA EPPERSON Primary Care Unavailable LAKSHMIPATHY ., NARENDRANATH Admitting Mell vailable LAKSHMIPATHY ., NARENDRANATH Consulting Mell vailable LAKSHMIPATHY ., NARENDRANATH Attending Mell vailable LAKSHMIPATHY ., NARENDRANATH Attending Mell vailable LAKSHMIPATHY ., NARENDRANATH Admitting Mell vailable LAKSHMIPATHY ., QUETA Consulting Mell vailable DR ADELITA EPPERSON Primary Care Unavailable WELLS [...] Care Unavailable ZHOU, DR UREÑA Consulting Unavailable Adelita Epperson MD Primary Care Provider Manjinder Lynn Jr Attending Unavailable Manjinder Lynn Jr Admitting Unavailable Adelita Epperson Primary Care Unavailable MD Adelita Epperson Primary Care Provider DO Manjinder Lynn Jr Attending Provider [phone] APLING, MARCEL Doherty Attending Unavailable ZHOU, ADELITA Whitaker Referring Unavailable APLING, MARCEL Doherty Referring Unavailable SURJIT, ANTONIO Doherty Attending Unavailable APLING, MARCEL Doherty Referring Unavailable SURJIT, ANTONIO Doherty Attending Unavailable APLING, MARCEL Doherty Referring Unavailable SURJIT, ANTONIO Doherty Attending Unavailable APLING, MARCEL Doherty Referring Unavailable SURJIT, ANTONIO Doherty Attending Unavailable APLING, MARCEL Doherty Referring Unavailable SURJIT, ANTONOI Doherty Attending Unavailable APLING, MARCEL Doherty Referring Unavailable SURJIT, ANTONIO Doherty Attending Unavailable APLING, MARCEL Doherty Referring Unavailable SURJIT, ANTONIO Doherty Attending Unavailable APLING, MARCEL Doherty Referring Unavailable SAMEERTONYA Attending Unavailable ZHOU, ADELITA Whitaker Attending Unavailable TOMAS, AL Tate Attending Unavailable ZHOU, ADELITA Whitaker Attending Unavailable HANS LORD Attending Unavailable TOMAS, AL Tate Attending Unavailable TOMAS, AL Tate Attending Unavailable Unavailable Unavailable Unavailable Medications Current Medications Medication Drug Class(es) Dates Sig (Normalized) Sig (Original) acetaminophen 250 mg / aspirin 250 mg / caffeine 65 mg oral tablet (2 sources) Platelet Aggregation Inhibitor, Nonsteroidal Anti-inflammatory Drug, Central [...] Test Name Value Interpretation Reference Range Facility Alanine aminotransferase [En zymatic activity/volume] in Serum or PlasmaOrdered By: Manjinder Lynn on 09-03-2023 ALT [Catalytic activity/Vol] 29 U/L 7-52 [facility] Albumin [Mass/volume] in Ser um or Plasma by Bromocresol green (BCG) dye binding methoOrdered By: Manjinder Lynn on 09-03-2023 Albumin BCG dye [Mass/Vol] 4.6 g/dL 3.5-5.7 [facility] Alkaline phosphatase [Enzyma tic activity/volume] in Serum or PlasmaOrdered By: Manjinder Lynn on 09-03-2023 ALP [Catalytic activity/Vol] 75 U/L 34-104 [facility] Aspartate aminotransferase [ Enzymatic activity/volume] in Serum or PlasmaOrdered By: Manjinder Lynn on 09-03-2023 AST [Catalytic activity/Vol] 20 U/L 13-39 [facility] Basophils Auto (Bld) [#/Vol] Ordered By: Manjinder Lynn on 09-03-2023 Basophils (Bld) [#/Vol] 0.1 10*3/uL 0.0-0.2 [facility] Basophils/100 WBC Auto (Bld) Ordered By: Manjinder Lynn on 09-03-2023 Basophils/100 WBC (Bld) 1.1 % . [facility] Bilirubin.total [Mass/volume ] in Serum or PlasmaOrdered By: Manjinder Lynn on 09-03-2023 Bilirubin [Mass/Vol] 1.3 mg/dL 0.3-1.0 [facility] Comment on above: Samples from patient s who have taken Naproxen have shown spurious elevation in Total Bilirubin levels. A metabolite of Naproxen, O-desmethylnaproxen, has been shown to interfere with the Tracy-María method for measuring Total Bilirubin. Calcium [Mass/volume] in Ser um or PlasmaOrdered By: Manjinder Lynn on 09-03-2023 Calcium [Mass/Vol] 9.5 mg/dL 8.6-10.3 [facility] Carbon dioxide, total [Moles /volume] in Serum or PlasmaOrdered By: Manjinder Lynn on 09-03-2023 CO2 [Moles/Vol] 27.6 mmol/L 21.0-31.0 [facility] Chloride [Moles/volume] in S cheryl or PlasmaOrdered By: Manjinder Lynn on 09-03-2023 Chloride [Moles/Vol] 103 mmol/L 98-107 [facility] Complete Blood Count no refl exon 09-03-2023 Basophils (Bld) [#/Vol] 0.1 10*3/uL Normal 0.0-0.2 [facility] Comment on above: Result Comment: PERF ORMED BY: [place] [address] PATHOLOGIST DECK MATE JOÃO YATES M.D. Performed By: #### C LIANA, [facility] CBC #### [facility] [address] Basophils/100 WBC (Bld) 1.1 % Normal . T [facility] Comment on above: Performed By: #### C MP, [facility] CBC #### [facility] [address] [place] [address] [place] Eosinophils (Bld) [#/Vol] 0.4 10*3/uL Normal 0.0-0.45 [facility] Comment on above: Performed By: #### C LIANA, [facility] CBC #### [address] Eosinophils/100 WBC (Bld) 4.9 % Normal . [facility] Comment on above: Performed By: #### C LIANA, [facility] CBC #### [address] Erythrocyte distribution width (RBC) [Ratio] 13.4 % Normal 12.0-14.8 [facility] Comment on above: Performed By: #### C LIANA, [facility] CBC #### [address] Hematocrit (Bld) [Volume fraction] 43.4 % Normal 38.8-50.0 [facility] Comment on above: Performed By: #### C LIANA, [facility] CBC #### [address] Hemoglobin (Bld) [Mass/Vol] 15.1 g/dL Normal 13.0-17.0 [facility] Comment on above: Performed By: #### C LIANA [facility] CBC #### [address] Lymphocytes (Bld) [#/Vol] 3.5 10*3/uL Normal 1.00-4.8 [facility] Comment on above: Performed By: #### C LIANA, [facility] CBC #### [address] Lymphocytes/100 WBC (Bld) 38.0 % Normal . [facility] Comment on above: Performed By: #### C LIANA, [facility] CBC #### [address] MCH (RBC) [Entitic mass] 30.6 pg Normal 27.5-35.2 [facility] Comment on above: Performed By: #### C LIANA, [facility] CBC #### [address] MCV (RBC) [Entitic vol] 88.2 fL Normal 83.5-101 [facility] Comment on above: Performed By: #### C LIANA, [facility] CBC #### [address] Mean Corpuscular HGB Conc 34.7 g/dL Normal 32.5-35.6 [facility] Comment on above: Performed By: #### C LIANA, [facility] CBC #### [address] Monocytes (Bld) [#/Vol] 0.7 10*3/uL Normal 0.0-0.8 [facility] Comment on above: Performed By: #### C LIANA, [facility] CBC #### [address] Monocytes/100 WBC (Bld) 7.1 % Normal . [facility] Comment on above: Performed By: #### C LIANA, [facility] CBC #### [address] Neutrophils (Bld) [#/Vol] 4.5 10*3/uL Normal 1.8-7.7 [facility] Comment on above: Performed By: #### C LIANA [facility] CBC #### [address] Neutrophils/100 WBC (Bld) 48.9 % Normal . [facility] Comment on above: Performed By: #### C LIANA, [facility] CBC #### [address] NRBC% 0.2 /100{WBC} Normal 0-0.5 [facility] Comment on above: Performed By: #### C LIANA, [facility] CBC #### [address] Platelet mean volume (Bld) [Entitic vol] 9.6 fL Normal 6.6-10.1 [facility] Comment on above: Performed By: #### C LIANA, [facility] CBC #### [place] [id number] [place] Platelets (Bld) [#/Vol] 230 10*3/uL Normal 150-450 [facility] Comment on above: Performed By: #### C MP, [facility] CBC #### [address] RBC (Bld) [#/Vol] 4.92 10*6/uL Normal 3.90-5.60 [facility] Comment on above: Performed By: #### C MP, [facility] CBC #### [address] WBC (Bld) [#/Vol] 9.2 10*3/uL Normal 4.1-10.5 [facility] Comment on above: Performed By: #### C MP, [facility] CBC #### [address] Comprehensive Metabolic Pane serafin 09-03-2023 Albumin [Mass/Vol] 4.6 g/dL Normal 3.5-5.7 [facility] Comment on above: Performed By: #### C LIANA, [facility] CBC #### [address] Albumin/Globulin [Mass ratio] 2.1 {ratio} Normal [facility] Comment on above: Performed By: #### C MP, [facility] CBC #### [address] ALP [Catalytic activity/Vol] 75 U/L Normal 34-104 [facility] Comment on above: Result Comment: PERF ORMED BY: [place] [address] PATHOLOGIST DECK MATE JOÃO YATES M.D. Performed By: #### C MP, [facility] CBC #### [address] ALT [Catalytic activity/Vol] 29 U/L Normal 7-52 [facility] Comment on above: Performed By: #### C MP, [facility] CBC #### [address] Anion gap [Moles/Vol] 11.4 mmol/L Normal 6.0-15.0 [facility] Comment on above: Performed By: #### C LIANA, [facility] CBC #### [address] AST [Catalytic activity/Vol] 20 U/L Normal 13-39 [facility] Comment on above: Performed By: #### C LIANA, [facility] CBC #### [address] Bilirubin [Mass/Vol] 1.3 mg/dL High 0.3-1.0 [facility] Comment on above: Result Comment: Samp les from patients who have taken Naproxen have shown spurious elevation in Total Bilirubin levels. A metabolite of Naproxen, O-desmethylnaproxen, has been shown to interfere with the Jendrassik-Grof method for measuring Total Bilirubin. Performed By: #### C LIANA, [facility] CBC #### [address] Calcium [Mass/Vol] 9.5 mg/dL Normal 8.6-10.3 [facility] Comment on above: Performed By: #### C LIANA, [facility] CBC #### [place] [address] [place] Chloride [Moles/Vol] 103 mmol/L Normal 98-107 [facility] Comment on above: Performed By: #### C LIANA, [facility] CBC #### [place] [address] [place] CO2 [Moles/Vol] 27.6 mmol/L Normal 21.0-31.0 [facility] Comment on above: Performed By: #### C LIANA, [facility] CBC #### [address] Creatinine [Mass/Vol] 1.22 mg/dL Normal 0.70-1.30 [facility] Comment on above: Performed By: #### C LIANA, [facility] CBC #### [place] [address] [place] GFR/1.73 sq M.predicted MDRD (S/P/Bld) [Vol rate/Area] mL/min/{1.73_m2} Normal [facility] Comment on above: Performed By: #### C MP, [facility] CBC #### [address] Globulin (S) [Mass/Vol] 2.2 g/dL Normal T [facility] Comment on above: Performed By: #### C MP, [facility] CBC #### [address] Glucose [Mass/Vol] 117 mg/dL High 70-100 [facility] Comment on above: Result Comment: [facility] Glucose Reference Range is dependent on time and content of last meal. Glucose of more than 200 mg/dL in a nonstressed, ambulatory subject supports the diagnosis of Diabetes Mellitus. ADA recommended reference range Performed By: #### C LIANA, [facility] CBC #### [address] Potassium [Moles/Vol] 4.0 mmol/L Normal 3.5-5.1 [facility] Comment on above: Performed By: #### C LIANA, [facility] CBC #### [address] Protein [Mass/Vol] 6.8 g/dL Normal 6.4-8.9 [facility] Comment on above: Performed By: #### C MP, [facility] CBC #### [place] [address] [place] Sodium [Moles/Vol] 138 mmol/L Normal 136-145 [facility] Comment on above: Performed By: #### C MP, [facility] CBC #### [place] [address] [place] Urea nitrogen [Mass/Vol] 11 mg/dL Normal 7-25 [facility] Comment on above: Performed By: #### C MP, [facility] CBC #### [place] [address] [place] Creatinine [Mass/volume] in Serum or PlasmaOrdered By: Manjinder Lynn on 09-03-2023 Creatinine [Mass/Vol] 1.22 mg/dL 0.70-1.30 [facility] Eosinophils Auto (Bld) [#/Vo l]Ordered By: Manjinder Lynn on 09-03-2023 Eosinophils (Bld) [#/Vol] 0.4 10*3/uL 0.0-0.45 [facility] Eosinophils/100 WBC Auto (Bl d)Ordered By: Manjinder Lynn on 09-03-2023 Eosinophils/100 WBC (Bld) 4.9 % . [facility] Erythrocyte distribution wid th Auto (RBC) [Ratio]Ordered By: Manjinder Lynn on 09-03-2023 Erythrocyte distribution width (RBC) [Ratio] 13.4 % 12.0-14.8 [facility] Globulin Calc (S) [Mass/Vol] Ordered By: Manjinder Lynn on 09-03-2023 Globulin (S) [Mass/Vol] 2.2 g/dL [facility] Glucose [Mass/volume] in Ser um or PlasmaOrdered By: Manjinder Lynn on 09-03-2023 Glucose [Mass/Vol] 117 mg/dL 70-100 [facility] Comment on above: ADA recommended refe rence rangeRandom Glucose Reference Range is dependent on time and content of last meal. Glucose of more than 200 mg/dL in a nonstressed, ambulatory subject supports the diagnosis of Diabetes Mellitus. Hematocrit Auto (Bld) [Volum e fraction]Ordered By: Manjinder Lynn on 09-03-2023 Hematocrit (Bld) [Volume fraction] 43.4 % 38.8-50.0 [facility] Hemoglobin [Mass/volume] in BloodOrdered By: Manjinder Lynn on 09-03-2023 Hemoglobin (Bld) [Mass/Vol] 15.1 g/dL 13.0-17.0 [facility] Leukocytes [#/volume] correc padma for nucleated erythrocytes in Blood by Automated counOrdered By: Manjinder Lynn on 09-03-2023 WBC corrected for nucl RBC Auto (Bld) [#/Vol] 9.2 10*3/uL 4.1-10.5 [facility] Lymphocytes Auto (Bld) [#/Vo l]Ordered By: Manjinder Lynn on 09-03-2023 Lymphocytes (Bld) [#/Vol] 3.5 10*3/uL 1.00-4.8 [facility] Lymphocytes/100 WBC Auto (Bl d)Ordered By: Manjinder Lynn on 09-03-2023 Lymphocytes/100 WBC (Bld) 38.0 % . [facility] MCH Auto (RBC) [Entitic mass ]Ordered By: Manjinder Lynn on 09-03-2023 MCH (RBC) [Entitic mass] 30.6 pg 27.5-35.2 [facility] MCHC Auto (RBC) [Mass/Vol]Or dered By: Manjinder Lynn on 09-03-2023 MCHC (RBC) [Mass/Vol] 34.7 g/dL 32.5-35.6 [facility] MCV Auto (RBC) [Entitic vol] Ordered By: Manjinder Lynn on 09-03-2023 MCV (RBC) [Entitic vol] 88.2 fL 83.5-101 [facility] Monocytes Auto (Bld) [#/Vol] Ordered By: Manjinder Lynn on 09-03-2023 Monocytes (Bld) [#/Vol] 0.7 10*3/uL 0.0-0.8 [facility] Monocytes/100 WBC Auto (Bld) Ordered By: Manjinder Lynn on 09-03-2023 Monocytes/100 WBC (Bld) 7.1 % . [facility] Neutrophils Auto (Bld) [#/Vo l]Ordered By: Manjinder Lynn on 09-03-2023 Neutrophils (Bld) [#/Vol] 4.5 10*3/uL 1.8-7.7 [facility] Neutrophils/100 WBC Auto (Bl d)Ordered By: Manjidner Lynn on 09-03-2023 Neutrophils/100 WBC (Bld) 48.9 % . [facility] No Panel InformationOrdered By: Manjinder Lynn on 09-03-2023 Estimated GFR (CKD-EPI) > 60.0 mL/Min [facility] Creatinine Clearance (Chem N/A [facility] Nucleated erythrocytes [Pres ence] in Blood by Automated countOrdered By: Manjinder Lynn on 09-03-2023 Nucleated RBC Auto Ql (Bld) 0.2 /100{WBC} 0-0.5 [facility] Platelet mean volume Auto (B ld) [Entitic vol]Ordered By: Manjinder Lynn on 09-03-2023 Platelet mean volume (Bld) [Entitic vol] 9.6 fL 6.6-10.1 [facility] Platelets Auto (Bld) [#/Vol] Ordered By: Manjinder Lynn on 09-03-2023 Platelets (Bld) [#/Vol] 230 10*3/uL 150-450 [facility] Potassium [Moles/volume] in Serum or PlasmaOrdered By: Manjinder Lynn on 09-03-2023 Potassium [Moles/Vol] 4.0 mmol/L 3.5-5.1 [facility] Protein [Mass/volume] in Ser um or PlasmaOrdered By: Manjinder Lynn on 09-03-2023 Protein [Mass/Vol] 6.8 g/dL 6.4-8.9 [facility] RBC Auto (Bld) [#/Vol]Ordere d By: Manjinder Lynn on 09-03-2023 RBC (Bld) [#/Vol] 4.92 10*6/uL 3.90-5.60 [facility] Serum or plasma albumin/glob ulin mass ratioOrdered By: Manjinder Lynn on 09-03-2023 Albumin/Globulin [Mass ratio] 2.1 {ratio} [facility] Serum or plasma anion gap de terminationOrdered By: Manjinder Lynn on 09-03-2023 Anion gap [Moles/Vol] 11.4 mmol/L 6.0-15.0 [facility] Sodium [Moles/volume] in Ser um or PlasmaOrdered By: Manjinder Lynn on 09-03-2023 Sodium [Moles/Vol] 138 mmol/L 136-145 [facility] Urea nitrogen [Mass/volume] in Serum or PlasmaOrdered By: Manjinder Lynn on 09-03-2023 Urea nitrogen [Mass/Vol] 11 mg/dL 7-25 [facility] WBC Auto (Bld) [#/Vol]Ordere d By: Manjinder Lynn on 09-03-2023 WBC (Bld) [#/Vol] 9.2 10*3/uL 4.1-10.5 [facility] XR chest 1Von 09-03-2023 XR chest 1V [facility] Main [place] [address] [place] [id number] XRay Report Signed Patient: Luís Calhoun MR#: [id number] : 1980 Acct:[id number] Age/Sex: 43 / M ADM Date: 09/03/23 Loc: [place] Room: Type: REG REF Attending Dr: Manjinder Lynn Jr, DO Copies to: Manjinder Lynn DO Ordering Provider: Manjinder Lynn DO Date of Service: 09/03/23 XR/XR chest 1V: ANNUAL RESP PHYSICAL Plain film chest Single view HISTORY: Annual physical COMPARISON: None FINDINGS: SUPPORT DEVICES: None POSTSURGICAL CHANGES: None HEART: Within normal limits PULMONARY ALYSSA: Within normal limits MEDIASTINUM: Unremarkable LUNGS AND PLEURA: No acute lung process, pleural effusion or pneumothorax identified. BONY STRUCTURES: Intact ADDITIONAL FINDINGS None XR/XR chest 1V IMPRESSION: No acute process. Impression dictated by: Pelon Salazar M.D.09/03/2023 1:17 PM Dictation Location: [place] [address] Transcribed By: [facility] 09/03/23 131 Dictated By: Pelon Salazar DO 09/03/23 1317 Signed By: 09/03/23 1317 Normal [facility] Complete Blood Counton 08-07 Erythrocyte distribution width (RBC) [Ratio] 13.0 % Normal 11.0-15.0 [facility]olding Room Supervisor Comment on above: Performed By: #### L IPD, CBC, CMP #### [facility] [address] [place] [id number] Hematocrit (Bld) [Volume fraction] 46.2 % Normal 38.5-50.0 [facility] Supervisor Comment on above: Performed By: #### L IPD, CBC, CMP #### [facility] [address] [place] [id number] Hemoglobin (Bld) [Mass/Vol] 15.6 g/dL Normal 13.0-17.1 [facility] Specialist Comment on above: Performed By: #### L IPD, CBC, CMP #### [facility] [address] [place], [place] [id number] MCH (RBC) [Entitic mass] 29.8 pg Normal 27.0-33.0 [facility] Specialist Comment on above: Performed By: #### L IPD, CBC, CMP #### [facility] [address] [place], [place] [id number] MCHC (RBC) [Mass/Vol] 33.8 g/dL Normal 32.0-36.0 [facility] Comment on above: Performed By: #### L IPD, CBC, CMP #### [facility] [address] [place], [place] [id number] MCV (RBC) [Entitic vol] 88 fL Normal 80-100 [facility] Comment on above: Performed By: #### L IPD, CBC, CMP #### [facility] [address] [place], [place] [id number] Platelet mean volume (Bld) [Entitic vol] 11.20 fL Normal 7.50-12.50 [facility] Comment on above: Performed By: #### L IPD, CBC, CMP #### [facility] [address] [place], [place] [id number] Platelets (Bld) [#/Vol] 231 10*3/uL Normal 140-400 [facility] Specialist Comment on above: Performed By: #### L IPD, CBC, CMP #### [facility] [address] [place], [place] [id number] RBC (Bld) [#/Vol] 5.24 10*6/uL Normal 4.20-5.80 [facility] Specialist Comment on above: Performed By: #### L IPD, CBC, CMP #### [facility] [address] [place], [place] [id number] RDW-SD 42.1 fL Normal 37.0-50.0 [facility] Specialist Comment on above: Performed By: #### L IPD, CBC, CMP #### [facility] [address] [place], [place] [id number] WBC (Bld) [#/Vol] 9.2 10*3/uL Normal 3.8-11.0 [facility] [facility] Supervisor Comment on above: Performed By: #### L IPD, CBC, CMP #### [facility] [address] [place], [place] [id number] Comprehensive Metabolic Pane serafin 08-07-2021 Albumin [Mass/Vol] 4.7 g/dL Normal 3.6-5.1 [facility] [place] [facility] Supervisor Comment on above: Performed By: #### L IPD, CBC, CMP #### [facility] [address] [place], [place] [id number] Albumin/Globulin [Mass ratio] 2.4 {ratio} Normal 1.0-2.5 [facility] Specialist Comment on above: Performed By: #### L IPD, CBC, CMP #### [facility] [address] [place], [place] [id number] ALP [Catalytic activity/Vol] 76 U/L Normal 40-129 [facility] Specialist Comment on above: Performed By: #### L IPD, CBC, CMP #### [facility] [address] [place], [place] [id number] ALT [Catalytic activity/Vol] 52 U/L High 9-46 [facility] Specialist Comment on above: Result Comment: 03/28 Female reference range changed. Performed By: #### L IPD, CBC, CMP #### [facility] [address] [place], [place] [id number] Anion gap [Moles/Vol] 18 mmol/L Normal 12-20 [facility] Specialist Comment on above: Result Comment: Effe ctive 05/03/2019 reference range changed. Performed By: #### L IPD, CBC, CMP #### [facility] [address] [place], [place] [id number] AST [Catalytic activity/Vol] 36 U/L Normal 10-40 [facility] Specialist Comment on above: Performed By: #### L IPD, CBC, CMP #### [facility] [address] [place], [place] [id number] Bilirubin [Mass/Vol] 1.27 mg/dL High 0.30-1.20 [facility] Specialist Comment on above: Performed By: #### L IPD, CBC, CMP #### [facility] [address] [place], [place] [id number] BUN/CREA 10 Ratio Normal 6-22 [facility] Comment on above: Performed By: #### L IPD, CBC, CMP #### [facility] [address] [place], [place] [id number] Calcium [Mass/Vol] 9.6 mg/dL Normal 8.6-10.2 [facility] Comment on above: Performed By: #### L IPD, CBC, CMP #### [facility] [address] [place], [place] [id number] Chloride [Moles/Vol] 104 mmol/L Normal 98-107 [facility] Comment on above: Performed By: #### L IPD, CBC, CMP #### [facility] [address] [place], [place] [id number] CO2 [Moles/Vol] 22 mmol/L Normal 20-31 [facility] [facility] Comment on above: Performed By: #### L IPD, CBC, CMP #### [facility] [address], [place] [id number] Creatinine [Mass/Vol] 1.0 mg/dL Normal 0.7-1.4 [facility] Comment on above: Performed By: #### L IPD, CBC, CMP #### [facility] [address], [place] [id number] eGFRAA 96 mL/min/1.73m2 Normal >60 [facility] Comment on above: Performed By: #### L IPD, CBC, CMP #### [facility] [address], [place] [id number] eGFRNAA 80 mL/min/1.73m2 Normal >60 [facility] Comment on above: Performed By: #### L IPD, CBC, CMP #### [facility] [address], [place] [id number] Globulin (S) [Mass/Vol] 2.0 g/dL Normal 1.9-3.7 [facility] Comment on above: Performed By: #### L IPD, CBC, CMP #### [facility] [address], [place] [id number] Glucose [Mass/Vol] 76 mg/dL Normal 65-99 Manuelito pittman [place] [facility] [facility] Supervisor Comment on above: Result Comment: For FASTING Glucose --- ADA reference ranges: Normal 65-99 mg/dl Prediabetes 100-125 Diabetes >/= 126 Performed By: #### L IPD, CBC, CMP #### [facility] [address], [place] [id number] Potassium [Moles/Vol] 4.7 mmol/L Normal 3.5-5.5 [facility] Specialist Comment on above: Result Comment: Spec imen is hemolyzed. Results may be affected. Performed By: #### L IPD, CBC, CMP #### [facility] [address], [place] [id number] Protein [Mass/Vol] 6.7 g/dL Normal 6.1-8.1 Manuelito pittman [place] [facility] [facility] Comment on above: Performed By: #### L IPD, CBC, CMP #### [facility] [address], [place] [id number] Sodium [Moles/Vol] 139 mmol/L Normal 135-146 Manuelito pittman [place] [facility] Comment on above: Performed By: #### L IPD, CBC, CMP #### [facility] [address], [place] [id number] Urea nitrogen [Mass/Vol] 11 mg/dL Normal 7-25 [facility] Supervisor Comment on above: Performed By: #### L IPD, CBC, CMP #### [facility] [address], [place] [id number] Lipid Panelon 08-07-2021 Cholesterol [Mass/Vol] 154 mg/dL Normal 125-200 [facility] Comment on above: Result Comment: Low risk < 200mg/dL Borderline risk 201-239 mg/dl High risk > or equal to 240 Performed By: #### L IPD, CBC, CMP #### [facility] [address], [place] [id number] Cholesterol in HDL [Mass/Vol] 40 mg/dL Low >40 [facility] Supervisor Comment on above: Result Comment: High Cardiovascular Risk HDL <40 mg/dL Low Cardiovascular Risk HDL > or equal to 60 mg/dl Performed By: #### L IPD, CBC, CMP #### [facility] [address], [place] [id number] Cholesterol in LDL [Mass/Vol] 88 mg/dL Normal [facility] Comment on above: Result Comment: LDL ATP III CLASSIFICATION LDL less than 100 mg/dl Optimal LDL 100-129 mg/dl Near or above optimal LDL 130-159 Borderline high LDL 160-189 High LDL greater than 189 mg/dl Very High Performed By: #### L IPD, CBC, CMP #### [facility] [address], [place] [id number] Cholesterol in VLDL [Mass/Vol] 26 mg/dL Normal [facility] Comment on above: Performed By: #### L IPD, CBC, CMP #### [facility] [address], [place] [id number] Cholesterol.total/Choles terol in HDL [Mass ratio] 4 {ratio} Normal [facility] Comment on above: Performed By: #### L IPD, CBC, CMP #### [facility] [address], [place] [id number] Triglyceride [Mass/Vol] 129 mg/dL Normal 30-150 [facility] Comment on above: Result Comment: TRIG ATPIII CLASSIFICATIONS TRIG less than 150 mg/dl Normal TRIG 150-199 mg/dl Borderline High TRIG 200-500 mg/dl High TRIG greather than 500 mg/dl Very High Performed By: #### L IPD, CBC, CMP #### [facility] [address], [place] [id number] NR MR L-SPINE WO/W CONTRASTo n 01-13-2019 NR MR L-SPINE WO/W CONTRAST Patient Name: LUÍS CALHOUN STUDY: MR L-SPINE WO/W CONTRAST; 01/13/2019 10:05 am INDICATION: Radiculopathy, lumbar region. History of laminectomy. Right leg pain and numbness. COMPARISON: None. ACCESSION NUMBER(S): [id number] ORDERING CLINICIAN: ADELITA HENRY TECHNIQUE: Multisequential MR [...] Electronically signed by: BJ MUNGUIA MD Normal [facility] XR LUMBAR SPINE (MIN 4 VIEWS )on 12-17-2018 XR LUMBAR SPINE (MIN 4 VIEWS) Radiology exam is complete. No Radiologist dictation. Please follow up with ordering provider. Final result Normal [facility] Radiology exam is complete. No Radiologist dictation. Please follow up with ordering provider. [facility] [place], [place] Established Visit (Otolaryng ology)on 03-02-2018 Established Visit (Otolaryngology) Chief ComplaintNew patient suspected cholesteatoma History of Present IllnessHere today for mastoid bowl cleaning and follow up. Denies any interval otologic complaints since last being seen. Recall: 37 year old male referred by Dr. Head. [place] had a chronically draining ear and underwent [...] No acute distressVOICE: No hoarseness or other abnormalityRESPIRATIO N: Breathing comfortably, no stridorCV: No clubbing/cyanosis/michael ma in handsRIGHT EAR: Normal external ear and [...] turbinates, no bleeding or drainage, no lesionsORAL CAVITY/OROPHARYNX/LIP S: Normal mucous membranes, normal floor of mouth/tongue/OP, [...] (H95.192) Provider ImpressionsLeft CHLLeft cholesteatomas/p left mastoid cavityRecommendations - No evidence of active cholesteatoma-Debride ment every 4-5 months, can be done by Dr Head I personally examined and interviewed the patient along with Dr Carson I agree with the plan outlined above. Patient Discussion/SummaryWel come to Dr. Padilla clinic. We are here to assist you through your ENT care at [facility].Dr. Chicas is an Ear surgeon. This means that he specializes in taking care of patients with complex ear problems.Dr. Chicas's office number is [phone]. While you may see him at a satellite office, she has a team committed to help meet your healthcare needs at [facility]'s main campus. This number is the most direct way to communicate with the office.Audra is Dr. Padilla workers compensation legal secretary and she answers the office phone [...] may include dieticians, social workers, speech therapists, emergency medical service manager, neurologist, and physical therapist. Dr. Chicas will provide these referrals as needed. Please let him know if you would like to request a specific referral.For your convenience, Dr. Chicas sees patients at several [facility] locations including [facility], [facility], and [facility]. While we try to make your appointments [...] Mar 02 2018 2:05PM EST (Author) Normal [facility] Initial Visit (Otolaryngolog y)on 09-29-2017 Initial Visit (Otolaryngology) Chief ComplaintNew patient suspected cholesteatoma History of Present Qaimbft52 year old male referred by Dr. Head. [place] was a [place] had a chronically draining ear and underwent [...] AM Vitals Vital Signs Recorded: 29Sep2017 11:23AMHeart Byxi54Udxyppzq580Rksm hgcnm56Lalkud7 ft 2 biQzebhz700 lb BMI Uonmzecqvy88.65BSA Calculated2.59 Physical ExamCONSTITUTIONAL: No acute distressVOICE: No hoarseness or other abnormalityRESPIRATIO N: Breathing comfortably, no stridorCV: No clubbing/cyanosis/michael ma in handsEYES: EOM intact, sclera clearNEURO: Alert [...] turbinates, no bleeding or drainage, no lesionsORAL CAVITY/OROPHARYNX/LIP S: Normal mucous membranes, normal floor of mouth/tongue/OP, [...] ImpressionsLeft CHLLeft cholesteatomaLeft epithelial inclusion cystLeft ossicular discontinuityRecommen dations-Debridement every 6 months, epithelial inclusion cyst marsupialized today -Bacitracin soaked cotton ball placed today-Ciprodex drops x10 days-Will reassess in 4-5 months may require further revision/debridement in OR I personally examined and interviewed the patient along with Dr Zambrano. I agree with the plan outlined above. Patient Discussion/SummaryWel come to Dr. Padilla clinic. We are here to assist you through your ENT care at [facility].Dr. Chicas is an Ear surgeon. This means that he specializes in taking care of patients with complex ear problems.Dr. Chicas's office number is [phone]. While you may see him at a satellite office, she has a team committed to help meet your healthcare needs at [facility]'s main campus. This number is the most direct way to communicate with the office.Audra is Dr. Padilla workers compensation legal secretary and she answers the office phone [...] may include dieticians, social workers, speech therapists, emergency medical service manager, neurologist, and physical therapist. Dr. Chicas will provide these referrals as needed. Please let him know if you would like to request a specific referral.For your convenience, Dr. Chicas sees patients at several [facility] locations including [facility], [facility], and [facility]. While we try to make your appointments [...] ACTIVE -Retrospective By Protocol Authorization Ordered Normal [facility] Encounters Encounter Date Encounter Type Care Provider Facility Start: 12-09-2023 End: 12-09-2023 ambulatory AL Bebeto TOMAS Not Available Start: 11-25-2023 End: 11-25-2023 ambulatory AL Bebeto TOMAS Not Available Start: 11-12-2023 End: 11-12-2023 ambulatory HANS ELLIOTTREX Not Available Start: 10-07-2023 End: 10-07-2023 ambulatory ADELITA EPPERSON Not Available Start: 09-11-2023 End: 09-11-2023 ambulatory AL Bebeto TOMAS Not Available Start: 09-03-2023 End: 09-03-2023 ambulatory Manjinder Lynn Jr Facility:[facility] Start: 09-03-2023 End: 09-03-2023 ambulatory MD Adelita Epperson Work Phone: [facility] Work Phone: Start: 09-03-2023 End: 09-03-2023 Departed Referred MD Adelita Epperson Work Phone: [facility] [address] Work Phone: Start: 07-14-2023 End: 07-14-2023 ambulatory ADELITA EPPERSON Not Available Start: 06-24-2023 End: 06-24-2023 ambulatory TONYA ESTRELLA Not Available Start: 06-03-2023 Telephone encounter Marcel cameron NP Work Phone: [facility] Start: 06-02-2023 End: 06-03-2023 ambulatory ANTONIO [...] Doherty SURJIT Not Available Start: 05-05-2023 End: 05-05-2023 ambulatory MARCEL Doherty APLING Not Available Start: [...] Start: 04-10-2020 End: 04-10-2020 Patient encounter procedure [facility] Start: 12-17-2018 End: 12-20-2018 Patient encounter procedure [facility] Start: 12-17-2018 End: 12-19-2018 Subsequent hospital visit by physician [facility] Comment on above: Low back [...] ENT NICOL [address] [place] [address] Al Chi, DO [address] [place] [address] [facility] [place] Start: 07-14-2023 End: 07-14-2023 Patient encounter procedure 07/14/2023 8:45 AM EDT Office Visit [facility] [address] [place] [address] Adelita Epperson MD [address] [place] [address] [facility] Start: 06-23-2023 End: 06-23-2023 Patient encounter procedure 06/23/2023 8:00 AM EST Office Visit [facility] [address] [place] [address] Marcel Haley NP [address] [place] [address] [facility] Start: 06-16-2023 End: 06-16-2023 ambulatory 06/16/2023 4:15 PM EST Treatment [facility] [address] [place] [address] Antonio Solomon, PT [address] [place] [address] [facility] Start: 06-09-2023 End: 06-09-2023 ambulatory 06/09/2023 4:30 PM EST Treatment [facility] [address] [place] [address] Antonio Solomon, PT [address] [place] [address] [facility] Start: 06-04-2023 End: 06-04-2024 MR Lumbar spine WO contrast MR lumbar spine wo contrast Imaging Routine DDD (degenerative disc disease), lumbar Lumbar herniated disc Expected: 06/04/2023 (Approximate), Expires: 06/04/2024 [facility] Work Phone: Comment on above: Expected: 06/04/2023 (Approximate), Expires: 06/04/2024 Start: 12-27-2022 Influenza vaccination Influenza Vacc ine (#1) [facility] Start: 12-27-2018 Influenza vaccination Flu vaccine (# 1) [place], [place] Start: 1999 DTaP/Tdap/Td vaccine (1 - Tdap) DTaP/Tdap/Td vaccine (1 - Tdap) [place], [place] Start: 1995 HIV screen HIV screen [place], [place] Start: 1993 Varicella Vaccine (1 of 2 - 13+ 2-dose series) Varicella Vaccine (1 of 2 - 13+ 2-dose series) [place], [place] Start: 1986 Pneumococcal 0-64 ye ars Vaccine (1 of 1 - PPSV23) Pneumococcal 0-64 years Vaccine (1 of 1 - PPSV23) [place], [place] Payers Date Payer Category Payer Self-pay [id number] 2020 Unknown BCBS BCBS xxxxxx [id number] 2020-Present [phone] [address] [place] [address] [id number] 2017 Private Health Insurance [id number] 2017 Private Health Insurance [employer] A ETNA xxxxxxxxxx 2017-Present [phone] [address] [place] [address] xxxxxxxxxx [id number] .[id number] 1980 Unknown [id number] 2.16.840.1.106977.3.579.2 .356 1980 Unknown [id number] 2.16.840.1.263883.3.579.2 .356 1980 Unknown [id number] 2.16.840.1.803912.3.579.2 .356 1980 Unknown [id number] 2.16.840.1.968578.3.579.2 .185 1980 Unknown [id number] 2.16.840.1.752914.3.579.2 .593 1980 Unknown [id number] 2.16.840.1.474101.3.579.2 .593 1980 Unknown [id number] 2.16.840.1.834641.3.579.2 .593 1980 Unknown [id number] 2.16.840.1.981520.3.579.2 .593 1980 Unknown [id number] 2.16.840.1.244583.3.579.2 .593 1980 Unknown [id number] 2.16.840.1.005159.3.579.2 .593 1980 Unknown [id number] 2.16.840.1.082816.3.579.2 .1258 1980 Unknown [id number] 2.16.840.1.316726.3.579.2 .1258 1980 Unknown [id number] 2.16.840.1.923679.3.579.2 .1258 1980 Unknown [id number] 2.16.840.1.492023.3.579.2 .1258 1980 Unknown [id number] 2.16.840.1.705918.3.579.2 .1258 1980 Unknown [id number] 2.16.840.1.819327.3.579.2 .1258 1980 Unknown [id number] 2.16.840.1.411357.3.579.2 .1258 1980 Unknown [id number] 2.16.840.1.456836.3.579.2 .1259 1980 Unknown [id number] 2.16.840.1.272494.3.579.2 .9 1980 Unknown [id number] 2.16.840.1.777102.3.579.2 .9 1980 Unknown [id number] 2.16.840.1.148038.3.579.2 .9 1980 Unknown [id number] 2.16.840.1.234588.3.579.2 .9 1980 Unknown [id number] 2.16.840.1.486730.3.579.2 .1258 1980 Unknown [id number] 2.16.840.1.185312.3.579.2 .9 1980 Unknown [id number] 2.16.840.1.054597.3.579.2 .9 1980 Unknown [id number] 2.16.840.1.429522.3.579.2 .9 1959 Unknown [id number] Unknown [id number] 2.16.840.1.977132.3.579.2 .531 Social History Date Type Detail Facility Start: 01-16-2018 End: 02-25-2023 Tobacco smoking status NHIS Current every day smoker [place] Start: 01-16-2018 End: 11-07-2022 Alcohol intake No [place] Sex Assigned At Not on file [place] Start: 1980 Sex Assigned At Male [...] and would like to do MRI at [facility]. [facility] Note 06-03-2023 Telephone Encounter - Nida Gross - 06/03/2023 2:47 PM EST Note Date & Type Note Facility 06-03-2023 Miscellaneous Notes Formattin g of this note might be different from the original. Pt called back and would like to do MRI at [facility]. documented in this encounter [facility] Consultation [...] fluoroscopic guidance on the left side. [facility] Consultation note 07-23-2022 Note Date & Type Note Facility 07-23-2022 Note PAIN MANAGEMENT CONS ULTATION CONSULTATION DATE: 07/23/2022 ADDENDUM: The dictation mentions denervation of the L4-5, L5-S1 facet joint under fluoroscopic guidance by using radiofrequency ablation on the left side. The dictation should read: Proceeded with radiofrequency ablation of the L2-3, L4-5 levels under fluoroscopic guidance on the left side. [facility] Consultation note 07-23-2022 Note Date & [...] to proceed with the outlined plan. 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 He reports 0/10 pain [...] in six months' time for re-evaluation. [facility] Consultation note 01-03-2022 Note Date & [...] three months' time, unless otherwise indicated. [facility] Consultation note 10-04-2021 Note Date & [...] gluconate 800 mg q.h.s. in addition to kzcs-rie-vvnrdzz ibuprofen 600 mg q.a.m. before work. Daily stretching and the use of heat were encouraged to aid with the spasms. We discussed about different vitamin regimens and the patient was willing to try. He will be followed up in the clinic in three months' time unless otherwise indicated. The patient agrees with the plan of care. [facility] Signed and Approved by: SEAN WELLS . 10/11/2021 16:03:00 [facility] Evaluation note Note Date & Type Note Facility Evaluation note Diagnosis DDD (degenerative disc disease), lumbar- Primary Degeneration of lumbar or lumbosacral intervertebral disc Lumbar herniated disc documented in this encounter [facility] Evaluation note Note Date & Type Note Facility Evaluation note No assessment information availa [facility] Work Phone: Summary Purpose Family History No Family History Records FoundNo Family History Records FoundNo Family History Records FoundNo Family History Records FoundNo Family History Records FoundNo Family History Records FoundNo Family History Records FoundNo Family History Records Found Advance Directives No Advanced Directives Records FoundDocuments on File Type Date 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 Directives and Living Will Power of Mechanic Field Service Advance Directive Response Recorded Date/ Time Advance Directives No December 8:43am Advance Directive Response Recorded Date/ Time Advance Directives No September 03, 2023 8:44am Assessments Diagnosis Low back pain, unspecified back pain laterality, unspecified chronicity, with sciatica presence unspecified Chief Complaint and Reason for Visit Chief Complaint Back Pain Chief Complaint usg annual xd and la bs Reason for Referral Specialty Diagnoses / Procedures Referred By Selvin t Referred To Contact Diagnoses DDD (degenerative disc disease), lumbar Lumbar herniated disc Procedures MR lumbar spine wo contrast Marcel Haley, [facility] [address] [facility] [address] [place] [address] Referral ID Status Reason Start Date Expiration Date V isits Requested Visits Authorized [id number] Pending Review 06/04/2023 12/01/2023 1 1 Additional Source Comments (unrecognized sect ion and content) No Status Records FoundNo Status Records FoundNo Status Records FoundNo Status Records FoundNo Status Records FoundNo Status Records FoundNo Status Records FoundNo Status Records Found INFORMATION SOURCE (unrecogn ized section and content) DATE CREATED AUTHOR 04/05/2018 [facility] DATE CREATED AUTHOR AUTHOR'S ORGANIZ ATION 04/05/2018 [facility] DATE CREATED AUTHOR AUTHOR'S ORGANIZ ATION 12/20/2018 [facility] DATE CREATED AUTHOR AUTHOR'S ORGANIZ ATION 01/31/2019 [facility] DATE CREATED AUTHOR AUTHOR'S ORGANIZ ATION 08/08/2021 [facility] dical Specialist DATE CREATED AUTHOR AUTHOR'S ORGANIZ ATION 08/09/2022 [facility] DATE CREATED AUTHOR AUTHOR'S ORGANIZ ATION 09/04/2023 [facility] DATE CREATED AUTHOR AUTHOR'S ORGANIZ ATION 12/11/2023 [facility] dical Specialists EPIC Care Teams (unrecognized sec tion and content) Executive Asst Relationship Specialty Start Date End Date Adelita Epperson MD [address] [place] [address] PCP - General Internal Medicine 11/06/22 Team Status: Active Member Role Status Dates Adelita Epperson MD Primary Care Provider Active Team Status: Inactive Member Role Status Dates Adelita Epperson MD Primary Care Provider Active St art: September 03, 2023 End: September 03, 2023 Manjinder Lynn Jr, DO Attending Provider Active S tart: September 03, 2023 End: September 03, 2023 Goals (unrecognized section and content) Goals may be documented in a n alternate section FOR RECORDS PERTAINING TO PATIENTS WHO ARE [...] BE BASED ON THE PRIMARY CLINICAL RECORDS. [facility] [employer] provides no warranty or guarantee of the accuracy or completeness of information in this document.
[2024-01-05 07:49] VITALS: BP 144/106; PULSE 98; TEMP 36.3; O2SAT 100
[2024-01-05 08:24] VITALS: BP 151/92; BP 156/95; PULSE 102; PULSE 105; O2SAT 95; O2SAT 97
--- NOTE | 2024-01-05 08:26 | P.ON_ITS ---
Date of procedure: 01/05/24 Pre-op diagnosis: Pain due to lumbar stenosis with neurogenic claudication Post-op diagnosis: same as pre-op Procedure: Procedure: Right L4-5, L5-S1 transforaminal epidural steroid injection Medications: Bupivacaine 0.25% 2cc, lidocaine 2% 1cc, kenalog 80mg The patient was seen and examined in the preoperative holding area.? Informed consent was obtained and placed on the chart.? Patient was brought to the medical procedure unit and placed in the prone position where a timeout was completed verifying the correct patient, procedure site, position, and planned special equipment using sterile aseptic technique.? Under direct fluoroscopic visualization a 25-gauge Quincke tipped spinal needle was advanced to the designated neural foramen where contrast dye was injected to show adequate spread.? The needle was inserted at level right L4-5. There was no evidence of vascular or adverse uptake.? Epidural spread was appreciated.? The above- mentioned injectate was then placed in a 1.5 mL aliquot preceded by negative aspiration.? The needle was removed. The needle was inserted and the procedure repeated at level right L5-S1.? The surgery site was covered.? Patient was taken to the postprocedural recovery area and monitored for an appropriate length of time before found suitable for discharge in the accompaniment of a responsible adult. Anesthesia: Local Surgeon: Laura Luevano Pathology: none sent Condition: stable Disposition: no change
[2024-01-05] MEDS: IOHEXOL 240 MG/ML - 10 ML VIAL 12 MG INJ (08:28)
[2024-01-05] MEDS: BUPIVACAINE HCL 0.25% PF 25 MG/10 ML VIAL INJ (08:28)
[2024-01-05] MEDS: 0.9 % SODIUM CHLORIDE 10 ML SYRINGE - SALINE FLUSH INJ (08:28)
[2024-01-05] MEDS: LIDOCAINE HCL 2% 400 MG/20 ML MDV 3 ML INJ (08:28)
[2024-01-05] MEDS: TRIAMCINOLONE ACETONIDE 40 MG/ML VIAL 80 MG INJ (08:29)
== END 2024-01-05 08:43 | disposition home or self-care (01) ==
LOC: SURGOUT 07:35
PROVIDERS: PCP Internal Medicine; Visit Provider Anesthesiology
DX: M48.062 Spinal stenosis, lumbar region with neurogenic claudication (principal)
CPT/HCPCS: 64483; 64484; J0665; J3301; Q9966

== ENCOUNTER 2024-01-15 07:39 | Outpatient (OUT) | payer BC, SELFPAY ==
--- OUTSIDE RECORDS SUMMARY | 2024-01-15 07:42 | XMS_ITS | CCD ---
Author Organization [facility] Care Team Providers Care Upper Shaper Name Role Phone Jennifer Muller Unavailable Unavailable Juan Francisco, Maroun Tanus Unavailable Unavailable Adelita Epperson Unavailable Unavailable Juan Francisco, Maroun Tanus Unavailable Unavailable Pelon Head Unavailable Unavail able Adelita Epperson Unavailable Unavailable Juan Francisco, Maroun Tanus Unavailable Unavailable Juan Francisco, Maroun Tanus Unavailable Unavailable Adelita Epperson Unavailable Unavailable ADELITA EPPERSON Primary Care Unavailable Adelita Epperson Primary Care Provider [phone] Adelita Epperson Primary Care Provider [phone] Dereck Morrow Attending Provider LAKSHMIPATHY ., NARENDRANATH [...] ., NARENDRANATH Admitting Mell vailable LAKSHMIPATHY ., ESTRELLAATH Consulting Mell vailable DR ADELITA EPPERSON Primary Care Unavailable WELLS ., SEAN Consulting Unavailable MEGHAN ., DR BERNARDO Tate Admitting Unavailable CHRISTIANSON ., DR BERNARDO Tate Attending Unavailable DR [...] Unavailable Adelita Epperson MD Primary Care Provider [phone] Manjinder Lynn Jr Attending Unavailable Manjinder Lynn Jr Admitting Unavailable Adelita Epperson Primary Care Unavailable MD Adelita Epperson Primary Care Provider DO Manjinder Lynn Jr Attending Provider [phone] APLING, MARCEL Doherty Attending Unavailable ZHOU, ADELITA [...] APLING, MARCEL Doherty Referring Unavailable SURJIT, ANTONIO Dhoerty Attending Unavailable APLING, MARCEL Doherty Referring Unavailable SAMEERTONYA Attending Unavailable ZHOU, ADELITA Whitaker Attending Unavailable TOMAS, AL Tate Attending Unavailable ZHOU, ADELITA Whitaker Attending Unavailable HANS LORD Attending Unavailable TOMAS, AL Tate Attending Unavailable TOMAS, AL Tate Attending Unavailable Chloé CID, Laura Gutierrez Attending Unavailable Unavailable Unavailable Unavailable Medications Current [...] 09-03-2023 ALT [Catalytic activity/Vol] 29 U/L 7-52 [facility] Albumin [Mass/volume] in Ser um or Plasma by Bromocresol green (BCG) dye binding methoOrdered By: Manjinder Lynn on 09-03-2023 Albumin BCG dye [Mass/Vol] 4.6 g/dL 3.5-5.7 [facility] Alkaline phosphatase [Enzyma tic activity/volume] in Serum or PlasmaOrdered By: Manjinder Lynn on 09-03-2023 ALP [Catalytic activity/Vol] 75 U/L 34-104 [facility] Aspartate aminotransferase [ Enzymatic activity/volume] in Serum or PlasmaOrdered By: Manjinder Lynn on 09-03-2023 AST [Catalytic activity/Vol] 20 U/L 13-39 [facility] Basophils Auto (Bld) [#/Vol] Ordered By: Manjinder Lynn on 09-03-2023 Basophils (Bld) [#/Vol] 0.1 10*3/uL 0.0-0.2 [facility] Basophils/100 WBC Auto (Bld) Ordered By: Manjinder Lynn on 09-03-2023 Basophils/100 WBC (Bld) 1.1 % . [facility] Bilirubin.total [Mass/volume ] in Serum or PlasmaOrdered By: Manjinder Lnyn on 09-03-2023 Bilirubin [Mass/Vol] 1.3 mg/dL 0.3-1.0 [facility] Comment on above: Samples from patient s who have taken Naproxen have shown spurious elevation in Total Bilirubin levels. A metabolite of Naproxen, O-desmethylnaproxen, has been shown to interfere with the Ninoska method for measuring Total Bilirubin. Calcium [Mass/volume] in Ser um or PlasmaOrdered By: Manjinder Lynn on 09-03-2023 Calcium [Mass/Vol] 9.5 mg/dL 8.6-10.3 [facility] Carbon dioxide, total [Moles /volume] in Serum or PlasmaOrdered By: Manjinder Lynn on 09-03-2023 CO2 [Moles/Vol] 27.6 mmol/L 21.0-31.0 [facility] Chloride [Moles/volume] in S cheryl or PlasmaOrdered By: Manjinder Lynn on 09-03-2023 Chloride [Moles/Vol] 103 mmol/L 98-107 [facility] Complete Blood Count no refl exon 09-03-2023 Basophils (Bld) [#/Vol] 0.1 10*3/uL Normal 0.0-0.2 [facility] Comment on above: Result Comment: PERF ORMED BY: [place] [address] PATHOLOGIST MACHINE CONTAINER WASHER JOÃO YATES M.D. Performed By: #### C LIANA, [facility] CBC #### [facility] [address] Basophils/100 WBC (Bld) 1.1 % Normal . T he [facility] Comment on above: Performed By: #### C MP, [facility] CBC #### [facility] [address] [place] [address] [place] Eosinophils (Bld) [#/Vol] 0.4 10*3/uL Normal 0.0-0.45 [facility] Comment on above: Performed By: #### C MP, [facility] CBC #### [facility] [address] [place] [address] [place] Eosinophils/100 WBC (Bld) 4.9 % Normal . [facility] Comment on above: Performed By: #### C MP, [facility] CBC #### [facility] [address] Erythrocyte distribution width (RBC) [Ratio] 13.4 % Normal 12.0-14.8 [facility] Comment on above: Performed By: #### C LIANA, [facility] CBC #### [address] Hematocrit (Bld) [Volume fraction] 43.4 % Normal 38.8-50.0 [facility] Comment on above: Performed By: #### C LIANA, [facility] CBC #### [address] Hemoglobin (Bld) [Mass/Vol] 15.1 g/dL Normal 13.0-17.0 [facility] Comment on above: Performed By: #### C LIANA, [facility] CBC #### [place] [address] [place] Lymphocytes (Bld) [#/Vol] 3.5 10*3/uL Normal 1.00-4.8 [facility] Comment on above: Performed By: #### C MP, [facility] CBC #### [place] [address] [place] Lymphocytes/100 WBC (Bld) 38.0 % Normal . [facility] Comment on above: Performed By: #### C MP, [facility] CBC #### [address] MCH (RBC) [Entitic mass] 30.6 pg Normal 27.5-35.2 [facility] Comment on above: Performed By: #### C MP, [facility] CBC #### [address] MCV (RBC) [Entitic vol] 88.2 fL Normal 83.5-101 T [facility] Comment on above: Performed By: #### C LIANA, [facility] CBC #### [address] Mean Corpuscular HGB Conc 34.7 g/dL Normal 32.5-35.6 [facility] Comment on above: Performed By: #### C LIANA, [facility] CBC #### [place] [address] [place] Monocytes (Bld) [#/Vol] 0.7 10*3/uL Normal 0.0-0.8 [facility] Comment on above: Performed By: #### C LIANA, [facility] CBC #### [address] Monocytes/100 WBC (Bld) 7.1 % Normal . T [facility] Comment on above: Performed By: #### C LIANA, [facility] CBC #### [place] [address] [place] Neutrophils (Bld) [#/Vol] 4.5 10*3/uL Normal 1.8-7.7 [facility] Comment on above: Performed By: #### C LIANA, [facility] CBC #### [address] Neutrophils/100 WBC (Bld) 48.9 % Normal . [facility] Comment on above: Performed By: #### C LIANA, [facility] CBC #### [place] [address] [place] NRBC% 0.2 /100{WBC} Normal 0-0.5 The [facility] Comment on above: Performed By: #### C LIANA, [facility] CBC #### [address] Platelet mean volume (Bld) [Entitic vol] 9.6 fL Normal 6.6-10.1 [facility] Comment on above: Performed By: #### C LIANA, [facility] CBC #### [address] Platelets (Bld) [#/Vol] 230 10*3/uL Normal 150-450 [facility] Comment on above: Performed By: #### C MP, [facility] CBC #### [address] RBC (Bld) [#/Vol] 4.92 10*6/uL Normal 3.90-5.60 The [facility] Comment on above: Performed By: #### C LIANA, [facility] CBC #### [address] WBC (Bld) [#/Vol] 9.2 10*3/uL Normal 4.1-10.5 The [facility] Comment on above: Performed By: #### C LIANA, [facility] CBC #### [address] Comprehensive Metabolic Pane [facility] 09-03-2023 Albumin [Mass/Vol] 4.6 g/dL Normal 3.5-5.7 [facility] Comment on above: Performed By: #### C LIANA, [facility] CBC #### [address] Albumin/Globulin [Mass ratio] 2.1 {ratio} Normal [facility] Comment on above: Performed By: #### C LIANA, [facility] CBC #### [address] ALP [Catalytic activity/Vol] 75 U/L Normal 34-104 [facility] Comment on above: Result Comment: PERF ORMED BY: [place] [address] PATHOLOGIST MACHINE CONTAINER WASHER JOÃO YATES M.D. Performed By: #### C LIANA, [facility] CBC #### [address] ALT [Catalytic activity/Vol] 29 U/L Normal 7-52 [facility] Comment on above: Performed By: #### C LIANA, [facility] CBC #### [address] Anion gap [Moles/Vol] 11.4 mmol/L Normal 6.0-15.0 Th e [facility] Comment on above: Performed By: #### C LIANA [facility] CBC #### [address] AST [Catalytic activity/Vol] 20 U/L Normal 13-39 [facility] Comment on above: Performed By: #### C LIANA, [facility] CBC #### [address] Bilirubin [Mass/Vol] 1.3 mg/dL High 0.3-1.0 [facility] Comment on above: Result Comment: Samp les from patients who have taken Naproxen have shown spurious elevation in Total Bilirubin levels. A metabolite of Naproxen, O-desmethylnaproxen, has been shown to interfere with the Jendrassik-Grof method for measuring Total Bilirubin. Performed By: #### C LIANA, [facility] CBC #### [address] Calcium [Mass/Vol] 9.5 mg/dL Normal 8.6-10.3 [facility] Comment on above: Performed By: #### C LIANA [facility] CBC #### [place] [address] [place] Chloride [Moles/Vol] 103 mmol/L Normal 98-107 [facility] Comment on above: Performed By: #### C LIANA, [facility] CBC #### [address] CO2 [Moles/Vol] 27.6 mmol/L Normal 21.0-31.0 The [facility] Comment on above: Performed By: #### C LIANA, [facility] CBC #### [place] [address] [place] Creatinine [Mass/Vol] 1.22 mg/dL Normal 0.70-1.30 [facility] Comment on above: Performed By: #### C LIANA, [facility] CBC #### [place] [address] [place] GFR/1.73 sq M.predicted MDRD (S/P/Bld) [Vol rate/Area] mL/min/{1.73_m2} Normal [facility] Comment on above: Performed By: #### C LIANA, [facility] CBC #### [address] Globulin (S) [Mass/Vol] 2.2 g/dL Normal T he [facility] Comment on above: Performed By: #### C LIANA, [facility] CBC #### [address] Glucose [Mass/Vol] 117 mg/dL High 70-100 [facility] Comment on above: Result Comment: [place] Glucose Reference Range is dependent on time and content of last meal. Glucose of more than 200 mg/dL in a nonstressed, ambulatory subject supports the diagnosis of Diabetes Mellitus. ADA recommended reference range Performed By: #### C LIANA, [facility] CBC #### [address] Potassium [Moles/Vol] 4.0 mmol/L Normal 3.5-5.1 [facility] Comment on above: Performed By: #### C LIANA, [facility] CBC #### [address] Protein [Mass/Vol] 6.8 g/dL Normal 6.4-8.9 [facility] Comment on above: Performed By: #### C LIANA, [facility] CBC #### [place] [address] [place] Sodium [Moles/Vol] 138 mmol/L Normal 136-145 [facility] Comment on above: Performed By: #### C LIANA, [facility] CBC #### [address] Urea nitrogen [Mass/Vol] 11 mg/dL Normal 7-25 [facility] Comment on above: Performed By: #### C LIANA, [facility] CBC #### [place] [address] [place] Creatinine [Mass/volume] in Serum or PlasmaOrdered By: Manjinder Lynn on 09-03-2023 Creatinine [Mass/Vol] 1.22 mg/dL 0.70-1.30 [facility] Eosinophils Auto (Bld) [#/Vo l]Ordered By: Manjinder Lynn on 09-03-2023 Eosinophils (Bld) [#/Vol] 0.4 10*3/uL 0.0-0.45 [facility] Eosinophils/100 WBC Auto (Bl d)Ordered By: Manjinder Lynn on 09-03-2023 Eosinophils/100 WBC (Bld) 4.9 % . [facility] Erythrocyte distribution wid th Auto (RBC) [Ratio]Ordered By: Manjinder Lynn on 09-03-2023 Erythrocyte distribution width (RBC) [Ratio] 13.4 % 12.0-14.8 [facility] Globulin Calc (S) [Mass/Vol] Ordered By: Manjinder Lynn on 09-03-2023 Globulin (S) [Mass/Vol] 2.2 g/dL [facility] Glucose [Mass/volume] in Ser um or PlasmaOrdered By: Manjinder Lynn on 09-03-2023 Glucose [Mass/Vol] 117 mg/dL 70-100 [facility] Comment on above: ADA recommended refe rence rangeRandom Glucose Reference Range is dependent on time and content of last meal. Glucose of more than 200 mg/dL in a nonstressed, ambulatory subject supports the diagnosis of Diabetes Mellitus. Hematocrit Auto (Bld) [Volum e fraction]Ordered By: Manjinder Lynn on 09-03-2023 Hematocrit (Bld) [Volume fraction] 43.4 % 38.8-50.0 [facility] Hemoglobin [Mass/volume] in BloodOrdered By: Manjinder Lynn on 09-03-2023 Hemoglobin (Bld) [Mass/Vol] 15.1 g/dL 13.0-17.0 [facility] Leukocytes [#/volume] correc padma for nucleated erythrocytes in Blood by Automated counOrdered By: Manjinder Lynn on 09-03-2023 WBC corrected for nucl RBC Auto (Bld) [#/Vol] 9.2 10*3/uL 4.1-10.5 [facility] Lymphocytes Auto (Bld) [#/Vo l]Ordered By: Manjinder Lynn on 09-03-2023 Lymphocytes (Bld) [#/Vol] 3.5 10*3/uL 1.00-4.8 [facility] Lymphocytes/100 WBC Auto (Bl d)Ordered By: Manjinder Lynn on 09-03-2023 Lymphocytes/100 WBC (Bld) 38.0 % . [facility] MCH Auto (RBC) [Entitic mass ]Ordered By: Manjinder Lynn on 09-03-2023 MCH (RBC) [Entitic mass] 30.6 pg 27.5-35.2 [facility] MCHC Auto (RBC) [Mass/Vol]Or dered By: Manjinder Lynn on 09-03-2023 MCHC (RBC) [Mass/Vol] 34.7 g/dL 32.5-35.6 [facility] MCV Auto (RBC) [Entitic vol] Ordered By: Manjinder Lynn on 09-03-2023 MCV (RBC) [Entitic vol] 88.2 fL 83.5-101 F [facility] Monocytes Auto (Bld) [#/Vol] Ordered By: Manjinder Lynn on 09-03-2023 Monocytes (Bld) [#/Vol] 0.7 10*3/uL 0.0-0.8 [facility] Monocytes/100 WBC Auto (Bld) Ordered By: Manjinder Lynn on 09-03-2023 Monocytes/100 WBC (Bld) 7.1 % . [facility] Neutrophils Auto (Bld) [#/Vo l]Ordered By: Manjinder Lynn on 09-03-2023 Neutrophils (Bld) [#/Vol] 4.5 10*3/uL 1.8-7.7 [facility] Neutrophils/100 WBC Auto (Bl d)Ordered By: Manjinder yLnn on 09-03-2023 Neutrophils/100 WBC (Bld) 48.9 % . [facility] No Panel InformationOrdered By: Manjinder Lynn on 09-03-2023 Estimated GFR (CKD-EPI) > 60.0 mL/Min [facility] Creatinine Clearance (Chem N/A [facility] Nucleated erythrocytes [Pres ence] in Blood by Automated countOrdered By: Manjinder Lynn on 09-03-2023 Nucleated RBC Auto Ql (Bld) 0.2 /100{WBC} 0-0.5 [facility] Platelet mean volume Auto (B ld) [Entitic vol]Ordered By: Manjinder Lynn on 09-03-2023 Platelet mean volume (Bld) [Entitic vol] 9.6 fL 6.6-10.1 [facility] Platelets Auto (Bld) [#/Vol] Ordered By: Manjinder Lynn on 09-03-2023 Platelets (Bld) [#/Vol] 230 10*3/uL 150-450 [facility] Potassium [Moles/volume] in Serum or PlasmaOrdered By: Manjinder Lynn on 09-03-2023 Potassium [Moles/Vol] 4.0 mmol/L 3.5-5.1 [facility] Protein [Mass/volume] in Ser um or PlasmaOrdered By: Manjinder Lynn on 09-03-2023 Protein [Mass/Vol] 6.8 g/dL 6.4-8.9 [facility] RBC Auto (Bld) [#/Vol]Ordere d By: Manjinder Lynn on 09-03-2023 RBC (Bld) [#/Vol] 4.92 10*6/uL 3.90-5.60 [facility] Serum or plasma albumin/glob ulin mass ratioOrdered By: Manjinder Lynn on 09-03-2023 Albumin/Globulin [Mass ratio] 2.1 {ratio} [facility] Serum or plasma anion gap de terminationOrdered By: Manjinder Lynn on 09-03-2023 Anion gap [Moles/Vol] 11.4 mmol/L 6.0-15.0 [facility] Sodium [Moles/volume] in Ser um or PlasmaOrdered By: Manjinder Lynn on 09-03-2023 Sodium [Moles/Vol] 138 mmol/L 136-145 [facility] Urea nitrogen [Mass/volume] in Serum or PlasmaOrdered By: Manjindre Lynn on 09-03-2023 Urea nitrogen [Mass/Vol] 11 mg/dL 7-25 [facility] WBC Auto (Bld) [#/Vol]Ordere d By: Manjinder Lynn on 09-03-2023 WBC (Bld) [#/Vol] 9.2 10*3/uL 4.1-10.5 [facility] XR chest 1Von 09-03-2023 XR chest 1V [facility] [place] [address] [place] [id number] XRay Report Signed Patient: Luís Calhoun MR#: [id number] : 1980 Acct:[id number] Age/Sex: 43 / M ADM Date: 09/03/23 Loc: [place] Room: Type: [facility] Attending Dr: Manjinder Lynn Jr, DO Copies [...] Pelon Salazar M.D.09/03/2023 1:17 PM Dictation Location: [place] [address] Transcribed By: [facility] 09/03/23 131 Dictated By: Pelon Salazar DO 09/03/231316 Signed By: 09/03/23 1317 Normal [facility] Complete Blood Counton 08-07 Erythrocyte distribution width (RBC) [Ratio] 13.0 % Normal 11.0-15.0 [facility] Manager Of Tax Comment on above: Performed By: #### L IPD, CBC, CMP #### [facility] [address] [place] [id number] Hematocrit (Bld) [Volume fraction] 46.2 % Normal 38.5-50.0 [facility] Manager Of Tax Comment on above: Performed By: #### L IPD, CBC, CMP #### [facility] [address] [place], [place] [id number] Hemoglobin (Bld) [Mass/Vol] 15.6 g/dL Normal 13.0-17.1 [facility] Specialist Comment on above: Performed By: #### L IPD, CBC, CMP #### [facility] [address] [place], [place] [id number] MCH (RBC) [Entitic mass] 29.8 pg Normal 27.0-33.0 [facility] Specialist Comment on above: Performed By: #### L IPD, CBC, CMP #### [facility] [address] [place], [place] [id number] MCHC (RBC) [Mass/Vol] 33.8 g/dL Normal 32.0-36.0 [facility] Comment on above: Performed By: #### L IPD, CBC, CMP #### [facility] [address] [place], [place] [id number] MCV (RBC) [Entitic vol] 88 fL Normal 80-100 [facility] Comment on above: Performed By: #### L IPD, CBC, CMP #### [facility] [address] [place], [place] [id number] Platelet mean volume (Bld) [Entitic vol] 11.20 fL Normal 7.50-12.50 [facility] Comment on above: Performed By: #### L IPD, CBC, CMP #### [facility] [address] [place], [place] [id number] Platelets (Bld) [#/Vol] 231 10*3/uL Normal 140-400 [facility] Specialist Comment on above: Performed By: #### L IPD, CBC, CMP #### [facility] [address] [place], [place] [id number] RBC (Bld) [#/Vol] 5.24 10*6/uL Normal 4.20-5.80 [facility] Comment on above: Performed By: #### L IPD, CBC, CMP #### [facility] [address] [place], [place] [id number] RDW-SD 42.1 fL Normal 37.0-50.0 [facility] Specialist Comment on above: Performed By: #### L IPD, CBC, CMP #### [facility] [address] [place], [place] [id number] WBC (Bld) [#/Vol] 9.2 10*3/uL Normal 3.8-11.0 [place] Manager Of Tax Comment on above: Performed By: #### L IPD, CBC, CMP #### [facility] [address] [place], [place] [id number] Comprehensive Metabolic Pane serafin 08-07-2021 Albumin [Mass/Vol] 4.7 g/dL Normal 3.6-5.1 Manuelito p[place]man [place] Manager Of Tax Comment on above: Performed By: #### L IPD, CBC, CMP #### [facility] [address] [place], [place] [id number] Albumin/Globulin [Mass ratio] 2.4 {ratio} Normal 1.0-2.5 [facility] Specialist Comment on above: Performed By: #### L IPD, CBC, CMP #### [facility] [address] [place], [place] [id number] ALP [Catalytic activity/Vol] 76 U/L Normal 40-129 [facility] Specialist Comment on above: Performed By: #### L IPD, CBC, CMP #### [facility] [address] [place], [place] [id number] ALT [Catalytic activity/Vol] 52 U/L High 9-46 [facility] Specialist Comment on above: Result Comment: 03/28 Female reference range changed. Performed By: #### L IPD, CBC, CMP #### [facility] [address] [place], [place] [id number] Anion gap [Moles/Vol] 18 mmol/L Normal 12-20 [facility] Comment on above: Result Comment: Effe ctive 05/03/2019 reference range changed. Performed By: #### L IPD, CBC, CMP #### [facility] [address] [place], [place] [id number] AST [Catalytic activity/Vol] 36 U/L Normal 10-40 [facility] Specialist Comment on above: Performed By: #### L IPD, CBC, CMP #### [facility] [address] [place], [place] [id number] Bilirubin [Mass/Vol] 1.27 mg/dL High 0.30-1.20 [facility] Comment on above: Performed By: #### L IPD, CBC, CMP #### [facility] [address] [place], [place] [id number] BUN/CREA 10 Ratio Normal 6-22 [facility] Comment on above: Performed By: #### L IPD, CBC, CMP #### [facility] [address] [place], [place] [id number] Calcium [Mass/Vol] 9.6 mg/dL Normal 8.6-10.2 [facility] Comment on above: Performed By: #### L IPD, CBC, CMP #### [facility] [address] [place], [place] [id number] Chloride [Moles/Vol] 104 mmol/L Normal 98-107 [facility] Comment on above: Performed By: #### L IPD, CBC, CMP #### [facility] [address] [place], [place] [id number] CO2 [Moles/Vol] 22 mmol/L Normal 20-31 [facility] Comment on above: Performed By: #### L IPD, CBC, CMP #### [facility] [address] [place], [place] [id number] Creatinine [Mass/Vol] 1.0 mg/dL Normal 0.7-1.4 [facility] Comment on above: Performed By: #### L IPD, CBC, CMP #### [facility] [address] [place], [place] [id number] eGFRAA 96 mL/min/1.73m2 Normal >60 [facility] Comment on above: Performed By: #### L IPD, CBC, CMP #### [facility] [address] [place], [place] [id number] eGFRNAA 80 mL/min/1.73m2 Normal >60 [facility] Comment on above: Performed By: #### L IPD, CBC, CMP #### [facility] [address] [place], [place] [id number] Globulin (S) [Mass/Vol] 2.0 g/dL Normal 1.9-3.7 [facility] Comment on above: Performed By: #### L IPD, CBC, CMP #### [facility] [address] [place], [place] [id number] Glucose [Mass/Vol] 76 mg/dL Normal 65-99 Manuelito pittman [place] Manager Of Tax Comment on above: Result Comment: For FASTING Glucose --- ADA reference ranges: Normal 65-99 mg/dl Prediabetes 100-125 Diabetes >/= 126 Performed By: #### L IPD, CBC, CMP #### [facility] [address] [place], [place] [id number] Potassium [Moles/Vol] 4.7 mmol/L Normal 3.5-5.5 [facility] Comment on above: Result Comment: Spec imen is hemolyzed. Results may be affected. Performed By: #### L IPD, CBC, CMP #### [facility] [address] [place], [place] [id number] Protein [Mass/Vol] 6.7 g/dL Normal 6.1-8.1 Manuelito pittman [place] Manager Of Tax Comment on above: Performed By: #### L IPD, CBC, CMP #### [facility] [address] [place], [place] [id number] Sodium [Moles/Vol] 139 mmol/L Normal 135-146 [place] [facility] Manager Of Tax Comment on above: Performed By: #### L IPD, CBC, CMP #### [facility] [address] [place], [place] [id number] Urea nitrogen [Mass/Vol] 11 mg/dL Normal 7-25 [facility] Manager Of Tax Comment on above: Performed By: #### L IPD, CBC, CMP #### [facility] [address] [place], [place] [id number] Lipid Panelon 08-07-2021 Cholesterol [Mass/Vol] 154 mg/dL Normal 125-200 [facility] Comment on above: Result Comment: Low risk < 200mg/dL Borderline risk 201-239 mg/dl High risk > or equal to 240 Performed By: #### L IPD, CBC, CMP #### [facility] [address] [place], [place] [id number] Cholesterol in HDL [Mass/Vol] 40 mg/dL Low >40 [facility] Manager Of Tax Comment on above: Result Comment: High Cardiovascular Risk HDL <40 mg/dL Low Cardiovascular Risk HDL > or equal to 60 mg/dl Performed By: #### L IPD, CBC, CMP #### [facility] [address] [place], [place] [id number] Cholesterol in LDL [Mass/Vol] 88 mg/dL Normal [facility] Comment on above: Result Comment: LDL ATP III CLASSIFICATION LDL less than 100 mg/dl Optimal LDL 100-129 mg/dl Near or above optimal LDL 130-159 Borderline high LDL 160-189 High LDL greater than 189 mg/dl Very High Performed By: #### L IPD, CBC, CMP #### [facility] [address] [place], [place] [id number] Cholesterol in VLDL [Mass/Vol] 26 mg/dL Normal [facility] Comment on above: Performed By: #### L IPD, CBC, CMP #### [facility] [address] [place], [place] [id number] Cholesterol.total/Choles terol in HDL [Mass ratio] 4 {ratio} Normal [facility] Comment on above: Performed By: #### L IPD, CBC, CMP #### [facility] [address] [place], [place] [id number] Triglyceride [Mass/Vol] 129 mg/dL Normal 30-150 [facility] Comment on above: Result Comment: TRIG ATPIII CLASSIFICATIONS TRIG less than 150 mg/dl Normal TRIG 150-199 mg/dl Borderline High TRIG 200-500 mg/dl High TRIG greather than 500 mg/dl Very High Performed By: #### L IPD, CBC, CMP #### [facility] [address] [place], [place] [id number] NR MR L-SPINE WO/W CONTRASTo n 01-13-2019 NR MR L-SPINE WO/W CONTRAST Patient Name: LUÍS CALHOUN STUDY: MR L-SPINE WO/W CONTRAST; 01/13/2019 10:05 am INDICATION: Radiculopathy, lumbar region. History of laminectomy. Right leg pain and numbness. COMPARISON: None. ACCESSION NUMBER(S): [id number] ORDERING CLINICIAN: ADELITA HENRY TECHNIQUE: Multisequential MR [...] Electronically signed by: BJ MUNGUIA MD Normal [facility] XR LUMBAR SPINE (MIN 4 VIEWS )on 12-17-2018 XR LUMBAR SPINE (MIN 4 VIEWS) Radiology exam is complete. No Radiologist dictation. Please follow up with ordering provider. Final result Normal [facility] Radiology exam is complete. No Radiologist dictation. Please follow up with ordering provider. [facility] OSVALDO LAMA Established Visit (Otolaryng ology)on 03-02-2018 Established Visit (Otolaryngology) Chief ComplaintNew patient suspected cholesteatoma History of Present IllnessHere today for mastoid bowl cleaning and follow up. Denies any interval otologic complaints since last being seen. Recall: 37 year old male referred by Dr. Head. [place] he was a [place] in [place] had a chronically draining ear and underwent [...] assist you through your ENT care at [facility].Dr. Chicas is an Ear surgeon. This means that he specializes in taking care of patients with complex ear problems.Dr. Chicas's office number is [phone]. While you may see him at a satellite office, she has a team committed to help meet your healthcare needs at [facility]'s main campus. This number is the most direct way to communicate with the office.Audra is Dr. Padilla paralegal secretary and she answers the office phone [...] may include dieticians, social workers, speech therapists, manager operating, neurologist, and physical therapist. Dr. Chicas will provide these referrals as needed. Please let him know if you would like to request a specific referral.For your convenience, Dr. Chicas sees patients at several [facility] locations including [facility], [facility], and [facility]. While we try to make your appointments [...] Mar 02 2018 2:05PM EST (Author) Normal [facility] Initial Visit (Otolaryngolog y)on 09-29-2017 Initial Visit (Otolaryngology) Chief ComplaintNew patient suspected cholesteatoma History of Present Lgqnuug14 year old male referred by Dr. Head. When he was a child in [place] had a chronically draining ear and underwent [...] AM Vitals Vital Signs Recorded: 29Sep2017 11:23AMHeart [id number] gfhqq80Dwxnbe7 ft 2 vvZvekug993 lb BMI Vsxwhyabrz55.65BSA Calculated2.59 Physical ExamCONSTITUTIONAL: No acute distressVOICE: No [...] assist you through your ENT care at [facility].Dr. Chicas is an Ear surgeon. This means that he specializes in taking care of patients with complex ear problems.Dr. Chicas's office number is [phone]. While you may see him at a satellite office, she has a team committed to help meet your healthcare needs at [facility]'s main campus. This number is the most direct way to communicate with the office.Audra is Dr. Padilla paralegal secretary and she answers the office phone [...] may include dieticians, social workers, speech therapists, manager operating, neurologist, and physical therapist. Dr. Chicas will provide these referrals as needed. Please let him know if you would like to request a specific referral.For your convenience, Dr. Chicas sees patients at several [facility] locations including [facility], [facility], and [facility]. While we try to make your appointments [...] Date Encounter Type Care Provider Facility Start: 01-05-2024 End: 01-05-2024 ambulatory Laura Luevano MD Facility:[facility] Start: 12-09-2023 End: 12-09-2023 ambulatory AL MARIN Not Available Start: 11-25-2023 End: 11-25-2023 ambulatory AL MARIN Not Available Start: 11-12-2023 End: 11-12-2023 ambulatory HANS LORD Not Available Start: 10-07-2023 End: 10-07-2023 ambulatory ADELITA EPPERSON Not Available Start: 09-11-2023 End: 09-11-2023 ambulatory AL MARIN Not Available Start: 09-03-2023 End: 09-03-2023 ambulatory Manjinder Lynn Jr Facility:[facility] Start: 09-03-2023 End: 09-03-2023 ambulatory MD Adelita Epperson Work Phone: [facility] Work Phone: Start: 09-03-2023 End: 09-03-2023 Departed Referred MD Adelita Epperson Work Phone: [facility] [address] Work Phone: Start: 07-14-2023 End: 07-14-2023 ambulatory ADELITA EPPERSON Not Available Start: 06-24-2023 End: 06-24-2023 ambulatory TONYA ESTRELLA Not Available Start: 06-03-2023 Telephone encounter Marcel cameron NP Work Phone: [facility] Start: 06-02-2023 End: 06-03-2023 ambulatory ANTONIO Doherty SURJIT Not Available Start: 05-28-2023 End: 05-28-2023 ambulatory ANTONIO B SURJIT Not Available Start: 05-21-2023 End: 05-21-2023 ambulatory ANTONIO B SURJIT Not Available Start: 05-19-2023 End: 05-19-2023 ambulatory ANTONIO Doherty SURJIT Not Available Start: 2023 End: 2023 ambulatory ANTONIO Doherty SURJIT Not Available Start: 05-12-2023 End: 05-13-2023 ambulatory ANTONIO Doherty SURJIT Not Available Start: 05-08-2023 End: 05-08-2023 ambulatory ANTONIO Doherty SURJIT Not Available Start: 05-05-2023 End: 05-05-2023 ambulatory MARCEL Doherty APLING Not Available Start: 09-05-[address] ADELITA EPPERSON Facility :[facility] Start: 08-06-2022 End: 08-06-2022 ambulatory WANDAENDRANATH LAKSHMIPATHY . Facility:[facility] Start: 07-23-2022 End: 07-24-2022 ambulatory NARENDRANATH LAKSHMIPATHY . Facility:[facility] Start: 03-28-2022 End: 03-29-2022 ambulatory SEAN WELLS . Facility:[facility] Start: 01-03-2022 End: 01-04-2022 ambulatory SEAN WELLS . Facility:[facility] Start: 10-04-2021 End: 10-05-2021 ambulatory SEAN WELLS . Facility:[facility] Start: 04-10-2020 End: 04-10-2020 Patient encounter procedure Adelita Epperson [facility] [place] Start: 12-17-2018 End: 12-20-2018 Patient encounter procedure ADELITA EPPERSON [facility] Start: 12-17-2018 End: 12-19-2018 Subsequent hospital visit by physician [facility] Radiology Comment on above: Low [...] 3:45 PM EDT Office Visit [facility] [address] [facility] [place] [phone] Al Marin, [address] [place] [address] [facility] Start: 07-14-2023 End: 07-14-2023 Patient encounter procedure 07/14/2023 8:45 AM EDT Office Visit [facility] [address] [place] [id number] Adelita Epperson MD [address] [place] [address] [facility] Start: 06-23-2023 End: 06-23-2023 Patient encounter procedure 06/23/2023 8:00 AM EST Office Visit [facility] [address] [place] [address] Marcel Haley, BUILD AND DEPLOYMENT ENGINEER [address] [place] [address] [facility] Start: 06-16-2023 End: 06-16-2023 ambulatory 06/16/2023 4:15 PM EST Treatment [facility] [address] [facility] [id number] Antonio Solomon, PT [address] [facility] [place] [address] [facility] Start: 06-09-2023 End: 06-09-2023 ambulatory 06/09/2023 4:30 PM EST Treatment [facility] [address] [facility] [place] [address] Antonio Solomon, PT [address] [facility] [place] [address] [facility] Start: 06-04-2023 End: 06-04-2024 MR Lumbar spine WO contrast MR lumbar spine wo contrast Imaging Routine DDD (degenerative disc disease), lumbar Lumbar herniated disc Expected: 06/04/2023 (Approximate), Expires: 06/04/2024 [facility] Work Phone: Comment on above: Expected: 06/04/2023 (Approximate), Expires: 06/04/2024 Start: 12-27-2022 Influenza vaccination Influenza Vacc ine (#1) [facility] Start: 12-27-2018 Influenza vaccination Flu vaccine (# 1) [place], [place] Start: 1999 DTaP/Tdap/Td vaccine (1 - Tdap) DTaP/Tdap/Td vaccine (1 - Tdap) [place], [place] Start: 1995 HIV screen HIV screen [place], [place] Start: 1993 Varicella Vaccine (1 of 2 - 13+ 2-dose series) Varicella Vaccine (1 of 2 - 13+ 2-dose series) [place], [place] Start: 1986 Pneumococcal 0-64 ye ars Vaccine (1 of 1 - PPSV23) Pneumococcal 0-64 years Vaccine (1 of 1 - PPSV23) [place] Payers Date Payer Category Payer Self-pay [id number] 2020 Unknown [id number] 2017 Private Health Insurance [id number] 2017 Private Health Insurance [employer] [place] [employer] xxxxxxxxxx 2017-Present [phone] [address] [place] [address] xxxxxxxxxx [id number] .[id number] 1980 Unknown [id number] 2.16.840.1.689299.3.579.2 .356 1980 Unknown [id number] 2.16.840.1.730808.3.579.2 .356 1980 Unknown [id number] 2.16.840.1.743394.3.579.2 .356 1980 Unknown [id number] 2.16.840.1.915266.3.579.2 .185 1980 Unknown [id number] 2.16.840.1.673193.3.579.2 .593 1980 Unknown [id number] 2.16.840.1.759983.3.579.2 .593 1980 Unknown [id number] 2.16.840.1.565780.3.579.2 .593 1980 Unknown [id number] 2.16.840.1.848405.3.579.2 .593 1980 Unknown [id number] 2.16.840.1.136395.3.579.2 .593 1980 Unknown [id number] 2.16.840.1.744397.3.579.2 .593 1980 Unknown [id number] 2.16.840.1.818776.3.579.2 .1258 1980 Unknown [id number] 2.16.840.1.801761.3.579.2 .1258 1980 Unknown [id number] 2.16.840.1.388735.3.579.2 .1258 1980 Unknown [id number] 2.16.840.1.732912.3.579.2 .125 1980 Unknown [id number] 2.16.840.1.377106.3.579.2 .1258 1980 Unknown [id number] 2.16.840.1.265566.3.579.2 .1258 1980 Unknown [id number] 2.16.840.1.574644.3.579.2 .1258 1980 Unknown [id number] 2.16.840.1.565645.3.579.2 .9 1980 Unknown [id number] 2.16.840.1.831033.3.579.2 .9 1980 Unknown [id number] 2.16.840.1.868845.3.579.2 .9 1980 Unknown [id number] 2.16.840.1.958744.3.579.2 .9 1980 Unknown [id number] 2.16.840.1.416193.3.579.2 .9 1980 Unknown [id number] 2.16.840.1.977074.3.579.2 .9 1980 Unknown [id number] 2.16.840.1.445283.3.579.2 .9 1980 Unknown [id number] 2.16.840.1.852025.3.579.2 .9 1980 Unknown [id number] 2.16.840.1.947330.3.579.2 .9 1980 Unknown [id number] 2.16.840.1.279130.3.579.2 .196 1959 Unknown [id number] Unknown [id number] 2.16.840.1.986364.3.579.2 .531 Social History Date Type Detail Facility Start: 01-16-2018 End: 02-25-2023 Tobacco smoking status FLIS Current every day smoker [place] Start: 01-16-2018 End: 11-07-2022 Alcohol intake No [place] Sex Assigned At Not on file [place], [place] Start: 1980 Sex Assigned At Male [...] and would like to do MRI at [facility]. [facility] Note 06-03-2023 Telephone Encounter - Nida Gross - 06/03/2023 2:47 PM EST Note Date & Type Note Facility 06-03-2023 Miscellaneous Notes Formattin g of this note might be different from the original. Pt called back and would like to do MRI at [facility]. documented in this encounter [facility] Consultation note 07-23-2022 Note Date & Type Note Facility 07-23-2022 Note PAIN MANAGEMENT CONS ULTATION CONSULTATION DATE: 07/23/2022 ADDENDUM: The dictation mentions denervation of the L4-5, L5-S1 facet joint under fluoroscopic guidance by using radiofrequency ablation on the left side. The dictation should read: Proceed with radiofrequency ablation of the L2-3, L4-5 levels under fluoroscopic guidance on the left side. [facility] Consultation note 07-23-2022 Note Date & Type Note Facility 07-23-2022 Note PAIN MANAGEMENT CONS ULTATION CONSULTATION DATE: 07/23/2022 ADDENDUM: The dictation mentions denervation of the L4-5, L5-S1 facet joint under fluoroscopic guidance by using radiofrequency ablation on the left side. The dictation should read: Proceeded with radiofrequency ablation of the L2-3, L4-5 levels under fluoroscopic guidance on the left side. [facility] Consultation note 07-23-2022 Note Date & [...] to proceed with the outlined plan. 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 He reports 0/10 pain [...] in six months' time for re-evaluation. [facility] Consultation note 01-03-2022 Note Date & [...] three months' time, unless otherwise indicated. [facility] Consultation note 10-04-2021 Note Date & [...] gluconate 800 mg q.h.s. in addition to ptaw-dnl-suoyvej ibuprofen 600 mg q.a.m. before work. Daily stretching and the use of heat were encouraged to aid with the spasms. We discussed about different vitamin regimens and the patient was willing to try. He will be followed up in the clinic in three months' time unless otherwise indicated. The patient agrees with the plan of care. [facility] Signed and Approved by: SEAN WELLS . 10/11/2021 16:03:00 [facility] Evaluation note Note Date & Type Note Facility Evaluation note Diagnosis DDD (degenerative disc disease), lumbar- Primary Degeneration of lumbar or lumbosacral intervertebral disc Lumbar herniated disc documented in this encounter [facility] Evaluation note Note Date & Type Note Facility Evaluation note No assessment information availa [facility] Work Phone: Summary Purpose Family History No Family History Records FoundNo Family History Records FoundNo Family History Records FoundNo Family History Records FoundNo Family History Records FoundNo Family History Records FoundNo Family History Records FoundNo Family History Records FoundNo Family History Records Found Advance Directives No Advanced Directives Records FoundDocuments on File Type Date Recorded Patient Implementation Specialist Payroll Expl anation Advance Directives and Living Will Power of [place]oug[place] Advance Directive Response Recorded Date/ Time Advance [...] Referral Specialty Diagnoses / Procedures Referred By Contac t Referred To Contact Diagnoses DDD (degenerative disc disease), lumbar Lumbar herniated disc Procedures MR lumbar spine wo contrast Marcel Haley, BUILD AND DEPLOYMENT ENGINEER [address] [place] [address] Referral ID Status Reason Start Date Expiration Date V isits Requested Visits Authorized [id number] Pending Review 06/04/2023 12/01/2023 1 1 Additional Source Comments (unrecognized sect ion and content) No Status Records FoundNo Status Records FoundNo Status Records FoundNo Status Records FoundNo Status Records FoundNo Status Records FoundNo Status Records FoundNo Status Records FoundNo Status Records Found INFORMATION SOURCE (unrecogn ized section and content) DATE CREATED AUTHOR 04/05/2018 [facility] DATE CREATED AUTHOR AUTHOR'S ORGANIZ ATION 04/05/2018 [facility] DATE CREATED AUTHOR AUTHOR'S ORGANIZ ATION 12/20/2018 [facility] DATE CREATED AUTHOR AUTHOR'S ORGANIZ ATION 01/31/2019 [facility] DATE CREATED AUTHOR AUTHOR'S ORGANIZ ATION 08/08/2021 [facility] dical Specialist DATE CREATED AUTHOR AUTHOR'S ORGANIZ ATION 08/09/2022 [facility] DATE CREATED AUTHOR AUTHOR'S ORGANIZ ATION 09/04/2023 [facility] DATE CREATED AUTHOR AUTHOR'S ORGANIZ ATION 12/11/2023 [facility] dical Specialists EPIC DATE CREATED AUTHOR AUTHOR'S ORGANIZ ATION 01/11/2024 [facility] Care Teams (unrecognized sec tion and content) Upper Shaper Relationship Specialty Start Date End Date Adelita Epperson MD [address] [place] [address] PCP - General Internal Medicine 11/06/22 Team [...] BE BASED ON THE PRIMARY CLINICAL RECORDS. [facility]. provides no warranty or guarantee of the accuracy or completeness of information in this document.
--- NOTE | 2024-01-15 07:59 | PM.CN ---
Consult Note: HPI Data of Consult Patient: known to practice within the last 3 years Consult date: 07/02/23 Requesting Physician: Jeanette Castro NP Primary Care Provider: ADELITA EPPERSON Consult Narrative Reason for consult: f/u Narrative: Omar Voss a pleasant 43 year old male presents for evaluation and management of chronic low back pain, hx of LX DDD and lumbar radiculopathy. Pain today 2/10 in left low back, aching off and on. patient finds mild benefit from tylenol, NSAIDs. Does utilize THC gummies for sleep. Has tried baclofen 10mg HS PRN with benefit. Prior t Left L2,3 L4,5 facet RFA with 75% improvement ongoing. Recently underwent right L4/5 TFESI with 100% improvement ongoing. Patient was placed on zonegran but it caused migraines and was discontinued. cc:: CC: Jeanette Castro NP Review of Systems ROS Status of ROS 10 or more systems reviewed and unremarkable except as noted in history and below Musculoskeletal Reports: back pain PFSH PFSH Surgical History Hx of tonsillectomy ?Z90.89 - Acquired absence of other organs (ICD-10) History of tympanoplasty ?Z98.890 - Other specified postprocedural states (ICD-10) History of lumbar surgery ?Z98.890 - Other specified postprocedural states (ICD-10) Meds Home Medications and Allergies Home Medications ?Medication ?Instructions ?Recorded ?Confirmed ?Type thc gummies PO .qhs 07/03/23 History baclofen 10 mg tablet 10 mg PO .qhs 12/16/23 01/05/24 History zonisamide 50 mg capsule 50 mg PO DAILY 12/16/23 01/05/24 History Allergies Allergy/AdvReac Type Severity Reaction Status Date / Time No Known Drug Allergies Allergy Verified 01/05/24 07:48 Exam Constitutional Documenting provider has reviewed patient's vital signs: yes Common normals: no apparent distress, oriented x3, healthy appearing, alert and well nourished General appearance: cooperative [facility] Common normals: normocephalic, hearing grossly normal bilaterally and moist oral mucous membranes Head and scalp: normocephalic Eye Common normals: PERRL Pupil: PERRL Neck & C-Spine Common normals: full ROM General: normal visual inspection Chest Common normals: inspection of chest normal Respiratory Common normals: normal respiratory effort, no retractions and no use of accessory muscles Back & Pelvis Lumbar spine/lower back: normal to inspection and lumbar ROM normal Other: negative facet loading no radiculopathy on exam, sensation intact BLE, no weakness of BLE SLR negative mild axial low back pain Extremity Common normals: normal to inspection and full ROM Neuro Common normals: oriented x3, CN's II-XII intact bilaterally, moves all extremities, no focal motor deficits, no sensory deficits noted and deep tendon reflexes 2+ bilaterally Sensorium/orientation: alert Motor exam: strength 5/5 throughout and no movement abnormalities noted Psych Common normals: mental status grossly normal, thought process normal, cooperative, affect normal, speech normal and activity/motor behavior normal Speech: normal speech Thought process: normal thought process Results Additional Findings Additional findings: If on a controlled substance or opioids, I have checked an [place]ARRS report on this patient and there are no aberrancies noted in the prescribing history.??If on a controlled substance or opioid a drug screen was completed and reviewed within the last year, and if there has not been a drug screen completed we ordered one today to monitor higher risk, state monitored pain medication use. As part of providing excellent, safe, comprehensive care, the following was completed at our patient's visit: 1. A medication reconciliation and review to ensure accurate knowledge of current/active medications, including asking our patients to inform us about any rgwj-vrt-hntyvdx medications or herbal remedies/nutritional supplements/alternative remedies. 2. A review to specifically ensure our patients have had annual screening for screening for depression, screening for tobacco use, and screening for unhealthy alcohol use. For concerning screenings had a discussion with the patient, provided patient education, and recommended follow-up with primary care provider when appropriate. If patient noted with a risk of falling, they received education on strength, gait, and balance training to prevent future risk of falling. Assessment and Plan Assessment and Plan (1) Lumbar radiculopathy: (2) Lumbar spondylosis: (3) Myofascial pain: Plan overall pain well controlled as a result of interventional therapy and current medications, LESLEY 14%. Patient to continue HEP as tolerated and continue current medications. f/u 3 months, sooner if needed or can push appointment out to 6 months if doing well
== END 2024-01-15 07:40 | disposition home or self-care (01) ==
LOC: PM 07:39
PROVIDERS: PCP Internal Medicine; Visit Provider Nurse Practitioner
DX: M54.16 Radiculopathy, lumbar region (principal); M47.816 Spondylosis without myelopathy or radiculopathy, lumbar region; M79.18 Myalgia, other site
CPT/HCPCS: G0463

== ENCOUNTER 2024-02-17 10:53 | Outpatient (OUT) | payer BC, SELFPAY ==
--- NOTE | 2024-02-17 | CONS_ITS ---
PROCEDURE DATE: 02/17/2024 PROCEDURE: Trigger point injection left erector spinae muscle. PREOPERATIVE DIAGNOSIS: Pain secondary to lumbar sprain/strain injury left erector spinae muscle. POSTOPERATIVE DIAGNOSIS: Pain secondary to lumbar sprain/strain injury left erector spinae muscle. SOLUTION USED FOR INJECTION: 2 mL of 2% lidocaine, 2 mL of 0.25% Marcaine and 10 mg of Kenalog, total of 5 mL, and 5 mL used for the injection. EXAM: On examination, he had no signs consistent with myelopathy or radiculopathy involving the lower extremities. Patient has only mild to moderate pain with lumbar facet loading maneuvers. Patient had significant myofascial spasm with myalgia of the left erector spinae muscle, most severe at the L5 level. He had nothing to suggest hip joint dysfunction or SI joint dysfunction on today?s visit. IMMEDIATE COMPLICATIONS: None. PROCEDURE: After informed consent was obtained from the patient, placed in the flexed forward position. Skin overlying the area was prepped with alcohol. 25 gauge 1 ?? needle was inserted over the left erector spinae muscle at the L5 level, approximately 3 cm from the midline. Needle tip advanced until there was a twitch response, at which point we injected 5 mL of solution in divided doses along the erector spinae muscle. No indication of intravascular or intraneural or intrathecal needle tip placement or injection. [facility]
--- OUTSIDE RECORDS SUMMARY | 2024-02-17 11:08 | XMS_ITS | CCD ---
Author Organization [facility] Care Team Providers Care Wheat Combine Driver Name Role Phone Jennifer Muller Unavailable Unavailable [...] Primary Care Provider Dereck Morrow Attending Provider [phone] LAKSHMIPATHY ., NARENDRANATH Attending Mell vailable LAKSHMIPATHY ., NARENDRANATH Admitting Mell vailable JOSE ROBERTO NGUYEN Consulting Unavailable ZHOU, DR UREÑA Primary Care Unavailable HUMAIRA LAO Unavailable LAKSHMIPATHY ., NARENDRANATH Consulting Mell vailable DR ADELITA EPPERSON Consulting Unavailable DR ADELITA EPPERSON Primary Care Unavailable LAKSHMIPATHY ., NARENDRANATH Admitting Mell vailable LAKSHMIPATHY ., NARENDRANATH Consulting Mell vailable LAKSHMIPATHY ., NARENDRANATH Attending Mell vailable LAKSHMIPATHY ., NARENDRANATH Attending Mell vailable LAKSHMIPATHY ., NARENDRANATH Admitting Mell vailable LAKSHMIPATHY ., NARENDROSIATH Consulting Mell vailable ZHOU, DR UREÑA Primary Care Unavailable WELLS ., SEAN Consulting Unavailable CHRISTIANSON ., DR BERNARDO Tate Admitting Unavailable CHRISTIANSON ., DR BERNARDO Tate Attending Unavailable DR ADELITA EPPERSON Primary Care Unavailable WELLS ., SEAN Consulting Unavailable CHRISTIANSON ., DR BERNARDO Tate Admitting Unavailable CHRISTIANSON ., DR BERNARDO Tate Attending Unavailable ZHOU, DR UREÑA Primary Care Unavailable WELLS ., SEAN Consulting Unavailable MEGHAN ., DR BERNARDO Tate Admitting Unavailable MEGHAN ., DR BERNARDO Tate Attending Unavailable ZHOU, DR UREÑA Primary Care Unavailable ZHOU, DR UREÑA Consulting Unavailable Adelita Epperson MD Primary Care Provider Manjinder Lynn Jr Attending Unavailable Manjinder Lynn Jr Admitting Unavailable Adelita Epperson Primary Care Unavailable MD Adelita Epperson Primary Care Provider [phone] DO Manjinder Lynn Jr Attending Provider APLING, MARCEL Doherty Attending Unavailable ADELITA EPPERSON [...] Attending Unavailable APLING, MARCEL Doherty Referring Unavailable TONYA ESTRELLA Attending Unavailable ZHOU, ADELITA Whitaker Attending Unavailable TOMAS, AL Tate Attending Unavailable ZHOU, ADELITA Whitaker Attending Unavailable POP, HANS Whitaker Attending Unavailable TOMAS, AL Tate Attending Unavailable TOMAS, AL Tate Attending Unavailable Chloé CID, Laura Gutierrez Attending Unavailable Adelita Epperson MD Unavailable Unavailable Unavailable Unavailable Medications Current Medications [...] 5-325 MG per tablet Cannabinoids (medical cannabis) (2 sources) Cannabinoids (medical cannabis) Medicinal Marijuana Active Cannabinoids (me dical cannabis) Medicinal Marijuana 0 Active ibuprofen 800 mg oral tablet (2 sources) Nonsteroidal Anti-inflammatory Drug take 1 tablet by mouth every six hours as needed ibuprofen 800 MG tablet Take 800 mg by mouth every 6 (six) hours if needed. Active naproxen 375 mg oral tablet (1 source) Nonsteroidal Anti-inflammatory Drug naproxen (NAPROSYN) 375 MG tablet Take 375 mg by mouth as needed for Pain 0 Active phentermine hydrochloride 37.5 mg oral tablet (2 sources) Sympathomimetic Amine Anorectic Start: take 1 tablet by mouth before mealtime phentermine (Adipex-P) 37.5 MG tablet Indications: Obesity (BMI 30-39.9) Take 1 tablet (37.5 mg) by mouth in the morning. Take before meals. 30 tablet 02/11/2024 Active Start: 01-13-2024 End: 02-10-2024 take 1 tablet by mouth before mealtime phentermine (Adipex-P) 37.5 MG tablet Indications: Obesity (BMI 30-39.9) Take 1 tablet (37.5 mg) by mouth in the morning. Take before meals. 30 tablet 01/13/2024 02/10/2024 Discontinued (Reorder) Problems Active Problems Problem Classification Problem Date Documented Date Episodic/Chronic Other connective tissue disease (1 source) Other muscle spasm; Translations: [OTHER MUSCLE SPASM] Onset: 07-26-2022 Episodic Other ear and sense organ disorders (2 sources) Conductive hearing loss, unilateral, left ear, with [...] to excess calories] Onset: 11-01-2022 11-01-2022 Chronic Other nutritional; endocrine; and metabolic disorders (3 sources) Body mass index 30+ - obesity; Translations: [Obesity, unspecified] Onset: 02-24-2023 Resolved: 02-24-2023 02-24-2023 Chronic Spondylosis; intervertebral disc disorders; other back [...] Date Documented Da te Episodic/Chronic Esophageal disorders (2 sources) Laryngopharyngeal reflux; Translations: [Gastro-esophageal reflux disease without esophagitis] Onset: 3 Resolved: 3 02-24-2023 Chronic Other diseases of veins and lymphatics (2 sources) Lymphedema; Translations: [Lymphedema, not elsewhere classified] Onset: 9 Resolved: 3 02-24-2023 Chronic Other gastrointestinal disorders (2 sources) Chronic constipation; Translations: [Other constipation] Onset: 0 Resolved: 3 02-24-2023 Episodic Other liver diseases (2 sources) Elevated liver enzymes level; Translations: [Abnormal levels of other serum enzymes] Onset: 3 Resolved: 4 11-01-2022 Episodic Residual codes; unclassified (2 sources) FH: premature coronary heart disease; Translations: [Family history of ischemic heart disease and other diseases of the circulatory system] Onset: 3 11-07-2022 Episodic Spondylosis; intervertebral disc disorders; other back problems (10 sources) Low back pain; Translations: [Muscle spasm of back] Onset: 2 Resolved: 3 Episodic Results Test Name Value Interpretation Reference Range Facility Alanine aminotransferase [En zymatic activity/volume] in Serum or PlasmaOrdered By: Manjinder Lynn on 09-03-2023 ALT [Catalytic activity/Vol] 29 U/L 7-52 [facility] Albumin [Mass/volume] in Ser um or Plasma by Bromocresol green (BCG) dye binding methoOrdered By: Manjinder Lynn on 09-03-2023 Albumin BCG dye [Mass/Vol] 4.6 g/dL 3.5-5.7 [facility] Alkaline phosphatase [Enzyma tic activity/volume] in Serum or PlasmaOrdered By: Mnajinder Lynn on 09-03-2023 ALP [Catalytic activity/Vol] 75 U/L 34-104 [facility] Aspartate aminotransferase [ Enzymatic activity/volume] in Serum or PlasmaOrdered By: Manjinder Lynn on 09-03-2023 AST [Catalytic activity/Vol] 20 U/L 13-39 [facility] Basophils Auto (Bld) [#/Vol] Ordered By: Manjinder Lnyn on 09-03-2023 Basophils (Bld) [#/Vol] 0.1 10*3/uL 0.0-0.2 [facility] Basophils/100 WBC Auto (Bld) Ordered By: Manjinder Lynn on 09-03-2023 Basophils/100 WBC (Bld) 1.1 % . [facility] Bilirubin.total [Mass/volume ] in Serum or PlasmaOrdered By: Manjinder Lynn on 09-03-2023 Bilirubin [Mass/Vol] 1.3 mg/dL 0.3-1.0 [facility] Comment on above: Samples from patient s who have taken Naproxen have shown spurious elevation in Total Bilirubin levels. A metabolite of Naproxen, O-desmethylnaproxen, has been shown to interfere with the Tracy-María method for measuring Total Bilirubin. Calcium [Mass/volume] in Ser um or PlasmaOrdered By: Manjinder Lynn on 09-03-2023 Calcium [Mass/Vol] 9.5 mg/dL 8.6-10.[address] [facility] Carbon dioxide, total [Moles /volume] in Serum or PlasmaOrdered By: Manjinder Lynn on 09-03-2023 CO2 [Moles/Vol] 27.6 mmol/L 21.0-31.0 [facility] Chloride [Moles/volume] in S cheryl or PlasmaOrdered By: Manjinder Lynn on 09-03-2023 Chloride [Moles/Vol] 103 mmol/L 98-107 [facility] Complete Blood Count no refl exon 09-03-2023 Basophils (Bld) [#/Vol] 0.1 10*3/uL Normal 0.0-0.2 [facility] Comment on above: Result Comment: PERF ORMED BY: [place] [address] PATHOLOGIST TUNNELLER JOÃO YATES M.D. Performed By: #### C LIANA, [facility] CBC #### [address] Basophils/100 WBC (Bld) 1.1 % Normal . T estuardo [facility] Comment on above: Performed By: #### C L[facility]NA, [facility] CBC #### [facility] [address] Eosinophils (Bld) [#/Vol] 0.4 10*3/uL Normal 0.0-0.45 [facility] Comment on above: Performed By: #### C L[facility], [facility] CBC #### [address] Eosinophils/100 WBC (Bld) 4.9 % Normal . [facility] Comment on above: Performed By: #### C LIANA, [facility] CBC #### [address] Erythrocyte distribution width (RBC) [Ratio] 13.4 % Normal 12.0-14.8 [facility] Comment on above: Performed By: #### C LIANA, [facility] CBC #### [place] [address] [place] Hematocrit (Bld) [Volume fraction] 43.4 % Normal 38.8-50.0 [facility] Comment on above: Performed By: #### C L[facility], [facility] CBC #### [address] Hemoglobin (Bld) [Mass/Vol] 15.1 g/dL Normal 13.0-17.0 [facility] Comment on above: Performed By: #### C L[facility]NA, [facility] CBC #### [facility] [address] Lymphocytes (Bld) [#/Vol] 3.5 10*3/uL Normal 1.00-4.8 [facility] Comment on above: Performed By: #### C MP, [facility] CBC #### [address] Lymphocytes/100 WBC (Bld) 38.0 % Normal . [facility] Comment on above: Performed By: #### C MP, [facility] CBC #### [address] MCH (RBC) [Entitic mass] 30.6 pg Normal 27.5-35.2 [facility] Comment on above: Performed By: #### C LIANA, [facility] CBC #### [address] MCV (RBC) [Entitic vol] 88.2 fL Normal 83.5-101 [facility] Comment on above: Performed By: #### C L[facility]NA, [facility] CBC #### [address] Mean Corpuscular HGB Conc 34.7 g/dL Normal 32.5-35.6 [facility] Comment on above: Performed By: #### C L[facility], [facility] CBC #### [address] Monocytes (Bld) [#/Vol] 0.7 10*3/uL Normal 0.0-0.8 [facility] Comment on above: Performed By: #### C MP, [facility] CBC #### [place] [address] [place] Monocytes/100 WBC (Bld) 7.1 % Normal . [facility] Comment on above: Performed By: #### C MP, [facility] CBC #### [address] Neutrophils (Bld) [#/Vol] 4.5 10*3/uL Normal 1.8-7.7 [facility] Comment on above: Performed By: #### C MP, [facility] CBC #### [address] Neutrophils/100 WBC (Bld) 48.9 % Normal . [facility] Comment on above: Performed By: #### C LIANA, [facility] CBC #### [facility] [address] NRBC% 0.2 /100{WBC} Normal 0-0.5 [facility] Comment on above: Performed By: #### C L[facility], [facility] CBC #### [address] Platelet mean volume (Bld) [Entitic vol] 9.6 fL Normal 6.6-10.1 [facility] Comment on above: Performed By: #### C L[facility], [facility] CBC #### [address] Platelets (Bld) [#/Vol] 230 10*3/uL Normal 150-450 [facility] Comment on above: Performed By: #### C L[facility], [facility] CBC #### [address] RBC (Bld) [#/Vol] 4.92 10*6/uL Normal 3.90-5.60 [facility] Comment on above: Performed By: #### C LIANA, [facility] CBC #### [place] [id number] [facility] WBC (Bld) [#/Vol] 9.2 10*3/uL Normal 4.1-10.5 [facility] Comment on above: Performed By: #### C LIANA, [facility] CBC #### [address] Comprehensive Metabolic Pane serafin 09-03-2023 Albumin [Mass/Vol] 4.6 g/dL Normal 3.5-5.7 [facility] Comment on above: Performed By: #### C MP, [facility] CBC #### [address] Albumin/Globulin [Mass ratio] 2.1 {ratio} Normal [facility] Comment on above: Performed By: #### C LIANA [facility] CBC #### [address] ALP [Catalytic activity/Vol] 75 U/L Normal 34-104 [facility] Comment on above: Result Comment: PERF ORMED BY: [place] [address] PATHOLOGIST TUNNELLER JOÃO YATES M.D. Performed By: #### C [facility], [facility] CBC #### [address] ALT [Catalytic activity/Vol] 29 U/L Normal 7-52 [facility] Comment on above: Performed By: #### C LIANA [facility] CBC #### [address] Anion gap [Moles/Vol] 11.4 mmol/L Normal 6.0-15.0 [facility] Comment on above: Performed By: #### C LIA[facility], [facility] CBC #### [address] AST [Catalytic activity/Vol] 20 U/L Normal 13-39 [facility] Comment on above: Performed By: #### C LIANA [facility] CBC #### [address] Bilirubin [Mass/Vol] 1.3 mg/dL High 0.3-1.0 [facility] Comment on above: Result Comment: Samp les from patients who have taken Naproxen have shown spurious elevation in Total Bilirubin levels. A metabolite of Naproxen, O-desmethylnaproxen, has been shown to interfere with the Jendrassik-Grof method for measuring Total Bilirubin. Performed By: #### C L[facility], [facility] CBC #### [place] [address] [place] Calcium [Mass/Vol] 9.5 mg/dL Normal 8.6-10.3 [facility] Comment on above: Performed By: #### C L[facility], [facility] CBC #### [place] [address] [place] Chloride [Moles/Vol] 103 mmol/L Normal 98-107 [facility] Comment on above: Performed By: #### C L[facility], [facility] CBC #### [facility] [address] CO2 [Moles/Vol] 27.6 mmol/L Normal 21.0-31.0 [facility] Comment on above: Performed By: #### C L[facility]NA, [facility] CBC #### [address] Creatinine [Mass/Vol] 1.22 mg/dL Normal 0.70-1.30 [facility] Comment on above: Performed By: #### C L[facility], [facility] CBC #### [place] [address] [place] GFR/1.73 sq M.predicted MDRD (S/P/Bld) [Vol rate/Area] mL/min/{1.73_m2} Normal [facility] Comment on above: Performed By: #### C [facility], [facility] CBC #### [address] Globulin (S) [Mass/Vol] 2.2 g/dL Normal [facility] Comment on above: Performed By: #### C L[facility], [facility] CBC #### [address] Glucose [Mass/Vol] 117 mg/dL High 70-100 [facility] Comment on above: Result Comment: [place] Glucose Reference Range is dependent on time and content of last meal. Glucose of more than 200 mg/dL in a nonstressed, ambulatory subject supports the diagnosis of Diabetes Mellitus. ADA recommended reference range Performed By: #### C L[facility]NA, [facility] CBC #### [place] [address] [place] Potassium [Moles/Vol] 4.0 mmol/L Normal 3.5-5.1 [facility] Comment on above: Performed By: #### C L[facility], [facility] CBC #### [address] Protein [Mass/Vol] 6.8 g/dL Normal 6.4-8.9 [facility] Comment on above: Performed By: #### C MP, [facility] CBC #### [facility] [address] [place] [address] [place] Sodium [Moles/Vol] 138 mmol/L Normal 136-145 [facility] Comment on above: Performed By: #### C MP, [facility] CBC #### [facility] [address] [place] [address] [place] Urea nitrogen [Mass/Vol] 11 mg/dL Normal 7-25 [facility] Comment on above: Performed By: #### C MP, [facility] CBC #### [facility] [address] [place] [address] [place] Creatinine [Mass/volume] in Serum or PlasmaOrdered By: Manjinder Lynn on 09-03-2023 Creatinine [Mass/Vol] 1.22 mg/dL 0.70-1.30 [facility] Eosinophils Auto (Bld) [#/Vo l]Ordered By: Manjinder Lynn on 09-03-2023 Eosinophils (Bld) [#/Vol] 0.4 10*3/uL 0.0-0.45 [facility] Eosinophils/100 WBC Auto (Bl d)Ordered By: Manjinder Lynn on 09-03-2023 Eosinophils/100 WBC (Bld) 4.9 % . [facility] Erythrocyte distribution wid th Auto (RBC) [Ratio]Ordered By: Manjinder Lynn on 09-03-2023 Erythrocyte distribution width (RBC) [Ratio] 13.4 % 12.0-14.8 [facility] Globulin Calc (S) [Mass/Vol] Ordered By: Manjinder Lynn on 09-03-2023 Globulin (S) [Mass/Vol] 2.2 g/dL [facility] Glucose [Mass/volume] in Ser um or PlasmaOrdered By: Manjinder Lynn on 09-03-2023 Glucose [Mass/Vol] 117 mg/dL 70-[address] [facility] Comment on above: ADA recommended refe rence rangeRandom Glucose Reference Range is dependent on time and content of last meal. Glucose of more than 200 mg/dL in a nonstressed, ambulatory subject supports the diagnosis of Diabetes Mellitus. Hematocrit Auto (Bld) [Volum e fraction]Ordered By: Manjinder Lynn on 09-03-2023 Hematocrit (Bld) [Volume fraction] 43.4 % 38.8-50.0 [facility] Hemoglobin [Mass/volume] in BloodOrdered By: Manjinder Lynn on 09-03-2023 Hemoglobin (Bld) [Mass/Vol] 15.1 g/dL 13.0-17.0 [facility] Leukocytes [#/volume] correc padma for nucleated erythrocytes in Blood by Automated counOrdered By: Manjinder Lynn on 09-03-2023 WBC corrected for nucl RBC Auto (Bld) [#/Vol] 9.2 10*3/uL 4.1-10.5 [facility] Lymphocytes Auto (Bld) [#/Vo l]Ordered By: Manjinder Lynn on 09-03-2023 Lymphocytes (Bld) [#/Vol] 3.5 10*3/uL 1.00-4.8 [facility] Lymphocytes/100 WBC Auto (Bl d)Ordered By: Manjinder Lynn on 09-03-2023 Lymphocytes/100 WBC (Bld) 38.0 % . [facility] MCH Auto (RBC) [Entitic mass ]Ordered By: Manjinder Lynn on 09-03-2023 MCH (RBC) [Entitic mass] 30.6 pg 27.5-35.2 [facility] MCHC Auto (RBC) [Mass/Vol]Or dered By: Manjinder Lynn on 09-03-2023 MCHC (RBC) [Mass/Vol] 34.7 g/dL 32.5-35.6 [facility] MCV Auto (RBC) [Entitic vol] Ordered By: Manjinder Lynn on 09-03-2023 MCV (RBC) [Entitic vol] 88.2 fL 83.5-101 [facility] Monocytes Auto (Bld) [#/Vol] Ordered By: Manjinder Lynn on 09-03-2023 Monocytes (Bld) [#/Vol] 0.7 10*3/uL 0.0-0.8 [facility] Monocytes/100 WBC Auto (Bld) Ordered By: Manjinder Lynn on 09-03-2023 Monocytes/100 WBC (Bld) 7.1 % . [facility] Neutrophils Auto (Bld) [#/Vo l]Ordered By: Manjinder Lynn on 09-03-2023 Neutrophils (Bld) [#/Vol] 4.5 10*3/uL 1.8-7.7 [facility] Neutrophils/100 WBC Auto (Bl d)Ordered By: Manjinder Lynn on 09-03-2023 Neutrophils/100 WBC (Bld) 48.9 % . [facility] No Panel InformationOrdered By: Manjinder Lynn on 09-03-2023 Estimated GFR (CKD-EPI) > 60.0 mL/Min [facility] Creatinine Clearance (Chem N/A [facility] Nucleated erythrocytes [Pres ence] in Blood by Automated countOrdered By: Manjinder Lynn on 09-03-2023 Nucleated RBC Auto Ql (Bld) 0.2 /100{WBC} 0-0.5 [facility] Platelet mean volume Auto (B ld) [Entitic vol]Ordered By: Manjinder Lynn on 09-03-2023 Platelet mean volume (Bld) [Entitic vol] 9.6 fL 6.6-10.1 [facility] Platelets Auto (Bld) [#/Vol] Ordered By: Manjinder Lynn on 09-03-2023 Platelets (Bld) [#/Vol] 230 10*3/uL 150-450 [facility] Potassium [Moles/volume] in Serum or PlasmaOrdered By: Manjinder yLnn on 09-03-2023 Potassium [Moles/Vol] 4.0 mmol/L 3.5-5.1 [facility] Protein [Mass/volume] in Ser um or PlasmaOrdered By: Manjinder Lynn on 09-03-2023 Protein [Mass/Vol] 6.8 g/dL 6.4-8.[address] [facility] RBC Auto (Bld) [#/Vol]Ordere d By: Manjinder Lynn on 09-03-2023 RBC (Bld) [#/Vol] 4.92 10*6/uL 3.90-5.60 [facility] Serum or plasma albumin/glob ulin mass ratioOrdered By: Manjinder Lynn on 09-03-2023 Albumin/Globulin [Mass ratio] 2.1 {ratio} [facility] Serum or plasma anion gap de terminationOrdered By: Manjinder Lynn on 09-03-2023 Anion gap [Moles/Vol] 11.4 mmol/L 6.0-15.0 [facility] Sodium [Moles/volume] in Ser um or PlasmaOrdered By: Manjinder Lynn on 09-03-2023 Sodium [Moles/Vol] 138 mmol/L 136-[address] [facility] Urea nitrogen [Mass/volume] in Serum or PlasmaOrdered By: Manjinder Lynn on 09-03-2023 Urea nitrogen [Mass/Vol] 11 mg/dL 7-25 [facility] WBC Auto (Bld) [#/Vol]Ordere d By: Manjinder Lynn on 09-03-2023 WBC (Bld) [#/Vol] 9.2 10*3/uL 4.1-10.[address] [facility] XR chest 1Von 09-03-2023 XR chest 1V [facility] [place] [address] XRay Report Signed Patient: Luís Calhoun MR#: [id number] : 1980 Acct:[id number] Age/Sex: 43 / M ADM Date: 09/03/23 Loc: [place] Room: Type: [facility] Attending Dr: Manjinder Lynn Jr, DO [...] Pelon Salazar M.D.09/03/2023 1:17 PM Dictation Location: [place] [address] Transcribed By: JOSELINE 09/03/231316 Dictated By: Pelon Salazar DO 09/03/231316 Signed By: 09/03/23 1317 Normal [facility] Complete Blood Count 08-07 Erythrocyte distribution width (RBC) [Ratio] 13.0 % Normal 11.0-15.0 [facility] Specialist Comment on above: Performed By: #### L IPD, CBC, CMP #### [facility] [address] [place], [place] [id number] Hematocrit (Bld) [Volume fraction] 46.2 % Normal 38.5-50.0 [facility] Specialist Comment on above: Performed By: #### L IPD, CBC, CMP #### [facility] [address] [place], [place] [id number] Hemoglobin (Bld) [Mass/Vol] 15.6 g/dL Normal 13.0-17.1 [facility] Specialist Comment on above: Performed By: #### L IPD, CBC, CMP #### [facility] [address] [place], [place] [id number] MCH (RBC) [Entitic mass] 29.8 pg Normal 27.0-33.0 [facility] Specialist Comment on above: Performed By: #### L IPD, CBC, CMP #### [facility] [address] [place], [place] [id number] MCHC (RBC) [Mass/Vol] 33.8 g/dL Normal 32.0-36.0 [facility] Specialist Comment on above: Performed By: #### L IPD, CBC, CMP #### [facility] [address] [place], [place] [id number] MCV (RBC) [Entitic vol] 88 fL Normal 80-100 [facility] Specialist Comment on above: Performed By: #### L IPD, CBC, CMP #### [facility] [address] [place], [place] [id number] Platelet mean volume (Bld) [Entitic vol] 11.20 fL Normal 7.50-12.50 [facility] Specialist Comment on above: Performed By: #### L IPD, CBC, CMP #### [facility] [address] [place], [place] [id number] Platelets (Bld) [#/Vol] 231 10*3/uL Normal 140-400 [facility] Specialist Comment on above: Performed By: #### L IPD, CBC, CMP #### [facility] [address] [place], [place] [id number] RBC (Bld) [#/Vol] 5.24 10*6/uL Normal 4.20-5.80 [facility] Specialist Comment on above: Performed By: #### L IPD, CBC, CMP #### [facility] [address] [place], [place] [id number] RDW-SD 42.1 fL Normal 37.0-50.0 [facility] Specialist Comment on above: Performed By: #### L IPD, CBC, CMP #### [facility] [address] [place], [place] [id number] WBC (Bld) [#/Vol] 9.2 10*3/uL Normal 3.8-11.0 [facility] Property Management Specialist Comment on above: Performed By: #### L IPD, CBC, CMP #### [facility] [address] [place], [place] [id number] Comprehensive Metabolic Pane [facility] 08-07-2021 Albumin [Mass/Vol] 4.7 g/dL Normal 3.6-5.1 [facility] Property [facility] Specialist Comment on above: Performed By: #### L IPD, CBC, CMP #### [facility] [address] [place], [place] [id number] Albumin/Globulin [Mass ratio] 2.4 {ratio} Normal 1.0-2.5 [facility] Specialist Comment on above: Performed By: #### L IPD, CBC, CMP #### [facility] [address] [place], [place] [id number] ALP [Catalytic activity/Vol] 76 U/L Normal 40-129 [facility] Specialist Comment on above: Performed By: #### L IPD, CBC, CMP #### [facility] [address] [place], [place] [id number] ALT [Catalytic activity/Vol] 52 U/L High 9-46 [facility] Property Management Specialist Comment on above: Result Comment: 03/28 Female reference range changed. Performed By: #### L IPD, CBC, CMP #### [facility] [address] [place], [place] [id number] Anion gap [Moles/Vol] 18 mmol/L Normal 12-20 [facility] Comment on above: Result Comment: Eff[place]ton ctive 05/03/2019 reference range changed. Performed By: #### L IPD, CBC, CMP #### [facility] [address] [place], [place] [id number] AST [Catalytic activity/Vol] 36 U/L Normal 10-40 [facility] Comment on above: Performed By: #### L IPD, CBC, CMP #### [facility] [address] [facility] [place] [id number] Bilirubin [Mass/Vol] 1.27 mg/dL High 0.30-1.20 [facility] Comment on above: Performed By: #### L IPD, CBC, CMP #### [facility] [address] [place], [place] [id number] BUN/CREA 10 Ratio Normal 6-22 [facility] Comment on above: Performed By: #### L IPD, CBC, CMP #### [facility] [address] [place], [place] [id number] Calcium [Mass/Vol] 9.6 mg/dL Normal 8.6-10.[address] [facility] Comment on above: Performed By: #### L IPD, CBC, CMP #### [facility] [address] [place], [place] [id number] Chloride [Moles/Vol] 104 mmol/L Normal 98-107 [facility] Comment on above: Performed By: #### L IPD, CBC, CMP #### [facility] [address] [facility] [place] [id number] CO2 [Moles/Vol] 22 mmol/L Normal 20-31 [facility] Comment on above: Performed By: #### L IPD, CBC, CMP #### [facility] [address] [facility] [place] [id number] Creatinine [Mass/Vol] 1.0 mg/dL Normal 0.7-1.4 [facility] Comment on above: Performed By: #### L IPD, CBC, CMP #### [facility] [address] [place], [place] [id number] eGFRAA 96 mL/min/1.73m2 Normal >60 [facility] Specialist Comment on above: Performed By: #### L IPD, CBC, CMP #### [facility] [address] [place], [place] [id number] eGFRNAA 80 mL/min/1.73m2 Normal >60 [facility] Specialist Comment on above: Performed By: #### L IPD, CBC, CMP #### [facility] [address] [place], [place] [id number] Globulin (S) [Mass/Vol] 2.0 g/dL Normal 1.9-3.7 N [facility] Specialist Comment on above: Performed By: #### L IPD, CBC, CMP #### [facility] [address] [place], [place] [id number] Glucose [Mass/Vol] 76 mg/dL Normal 65-99 [facility] Property Management Specialist Comment on above: Result Comment: For FASTING Glucose --- ADA reference ranges: Normal 65-99 mg/dl Prediabetes 100-125 Diabetes >/= 126 Performed By: #### L IPD, CBC, CMP #### [facility] [address] [place], [place] [id number] Potassium [Moles/Vol] 4.7 mmol/L Normal 3.5-5.5 [facility] Comment on above: Result Comment: Spec imen is hemolyzed. Results may be affected. Performed By: #### L IPD, CBC, CMP #### [facility] [address] [place], [place] [id number] Protein [Mass/Vol] 6.7 g/dL Normal 6.1-8.1 [facility] Property Management Specialist Comment on above: Performed By: #### L IPD, CBC, CMP #### [facility] [address] [place], [place] [id number] Sodium [Moles/Vol] 139 mmol/L Normal 135-146 Manuel[facility] Property Management Specialist Comment on above: Performed By: #### L IPD, CBC, CMP #### [facility] [address] [place], [place] [id number] Urea nitrogen [Mass/Vol] 11 mg/dL Normal 7-25 [facility] Specialist Comment on above: Performed By: #### L IPD, CBC, CMP #### [facility] [address] [place], [place] [id number] Lipid Panelon 08-07-2021 Cholesterol [Mass/Vol] 154 mg/dL Normal 125-200 No [facility] Comment on above: Result Comment: Low risk < 200mg/dL Borderline risk 201-239 mg/dl High risk > or equal to 240 Performed By: #### L IPD, CBC, CMP #### [facility] [address] [place], [place] [id number] Cholesterol in HDL [Mass/Vol] 40 mg/dL Low >40 [facility] Specialist Comment on above: Result Comment: High Cardiovascular Risk HDL <40 mg/dL Low Cardiovascular Risk HDL > or equal to 60 mg/dl Performed By: #### L IPD, CBC, CMP #### [facility] [address] [place], [place] [id number] Cholesterol in LDL [Mass/Vol] 88 mg/dL Normal [facility] Specialist Comment on above: Result Comment: LDL ATP III CLASSIFICATION LDL less than 100 mg/dl Optimal LDL 100-129 mg/dl Near or above optimal LDL 130-159 Borderline high LDL 160-189 High LDL greater than 189 mg/dl Very High Performed By: #### L IPD, CBC, CMP #### [facility] [address] [place], [place] [id number] Cholesterol in VLDL [Mass/Vol] 26 mg/dL Normal [facility] Specialist Comment on above: Performed By: #### L IPD, CBC, CMP #### [facility] [address] [place], [place] [id number] Cholesterol.total/Choles terol in HDL [Mass ratio] 4 {ratio} Normal [facility] Specialist Comment on above: Performed By: #### L IPD, CBC, CMP #### [facility] [address] [place], [place] [id number] Triglyceride [Mass/Vol] 129 mg/dL Normal 30-150 [facility] Comment on above: Result Comment: TRIG ATPIII CLASSIFICATIONS TRIG less than 150 mg/dl Normal TRIG 150-199 mg/dl Borderline High TRIG 200-500 mg/dl High TRIG greather than 500 mg/dl Very High Performed By: #### L IPD, CBC, CMP #### [facility] [address] [place], [place] [id number] NR MR L-SPINE WO/W CONTRASTo n 01-13-2019 NR MR L-SPINE WO/W CONTRAST Patient Name: LUÍS CALHOUN STUDY: MR L-SPINE WO/W CONTRAST; 01/13/2019 10:05 am INDICATION: Radiculopathy, lumbar region. History of laminectomy. Right leg pain and numbness. COMPARISON: None. ACCESSION NUMBER(S): [id number] ORDERING CLINICIAN: ADELITA HENRY TECHNIQUE: Multisequential MR [...] Electronically signed by: BJ MUNGUIA MD Normal [facility] XR LUMBAR SPINE (MIN 4 VIEWS )on 12-17-2018 XR LUMBAR SPINE (MIN 4 VIEWS) Radiology exam is complete. No Radiologist dictation. Please follow up with ordering provider. Final result Normal [facility] Radiology exam is complete. No Radiologist dictation. Please follow up with ordering provider. [facility] [place] Established Visit (Otolaryng ology)on 03-02-2018 Established Visit (Otolaryngology) Chief ComplaintNew patient suspected cholesteatoma History of Present IllnessHere today for mastoid bowl cleaning and follow up. Denies any interval otologic complaints since last being seen. Recall: 37 year old male referred by Dr. Head. When he was a child in [place] had a chronically draining ear and underwent [...] assist you through your ENT care at [facility].Dr. Chicas is an Ear surgeon. This means that he specializes in taking care of patients with complex ear problems.Dr. Chicas's office number is [phone]. While you may see him at a satellite office, she has a team committed to help meet your healthcare needs at [facility]'s main campus. This number is the most direct way to communicate with the office.Audra is Dr. Padilla hospice patient care secretary and she answers the office phone [...] may include dieticians, social workers, speech therapists, irrigator, neurologist, and physical therapist. Dr. Chicas will provide these referrals as needed. Please let him know if you would like to request a specific referral.For your convenience, Dr. Chicas sees patients at several [facility] locations including [facility], [facility], and [facility]. While we try to make your [...] ComplaintNew patient suspected cholesteatoma History of Present Yzzwdqw5 year old male referred by Dr. Head. When he was a child in [place] had a chronically draining ear and underwent [...] AM Vitals Vital Signs Recorded: 29Sep2017 11:23AMHeart Jsnz86Hteibwlm794Ncww sjwil21Mjrrlj4 ft 2 xwEtvgro475 lb BMI Wznwdazcsk80.65BSA Calculated2.59 Physical ExamCONSTITUTIONAL: No acute distressVOICE: No [...] assist you through your ENT care at [facility].Dr. Chicas is an Ear surgeon. This means that he specializes in taking care of patients with complex ear problems.Dr. Chicas's office number is [phone]. While you may see him at a satellite office, she has a team committed to help meet your healthcare needs at [facility]'s main campus. This number is the most direct way to communicate with the office.Audra is Dr. Padilla hospice patient care secretary and she answers the office phone [...] may include dieticians, social workers, speech therapists, irrigator, neurologist, and physical therapist. Dr. Chicas will provide these referrals as needed. Please let him know if you would like to request a specific referral.For your convenience, Dr. Chicas sees patients at several [facility] locations including [facility], [facility], and [facility]. While we try to make your [...] ACTIVE -Retrospective By Protocol Authorization [facility]dered [facility] En[facility] Encounter Date Encounter Type Care Provider Facility Start: 02-10-2024 End: 02-11-2024 Refill Erin Jamil NP Work Phone: [facility] Comment on above: Obesity (BMI 30-39.9 ) Start: 01-05-2024 End: 01-05-2024 ambulatory Laura Luevano MD Facility:[facility] Start: 12-09-2023 End: 12-09-2023 ambulatory AL MARIN Not Available Start: 11-25-2023 End: 11-25-2023 ambulatory AL MARIN Not Available Start: 11-12-2023 End: 11-12-2023 ambulatory HANS LORD Not Available Start: 10-07-2023 End: 10-07-2023 ambulatory ADELITA EPPERSON Not Available Start: 09-11-2023 End: 09-11-2023 ambulatory AL MARIN Not Available Start: 09-03-2023 End: 09-03-2023 ambulatory Manjinder Lynn Jr Facility:[facility] Start: 09-03-2023 End: 09-03-2023 ambulatory MD Adelita Epperson Work Phone: [facility] Work Phone: Start: 09-03-2023 End: 09-03-2023 Departed Referred MD Adelita Epperson Work Phone: [facility] [address] Work Phone: Start: 07-14-2023 End: 07-14-2023 ambulatory ADELITA EPPERSON Not Available Start: 06-24-2023 End: 06-24-2023 ambulatory TONYA ESTRELLA Not Available Start: 06-03-2023 Telephone encounter Marcel Doherty 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 Work Phone: [facility] Start: 06-02-2023 End: 06-03-2023 ambulatory ANTONIO B SURJIT Not Available Start: 05-28-2023 End: 05-28-2023 ambulatory ANTONIO B SURJIT Not Available Start: 05-21-2023 End: 05-21-2023 ambulatory ANTONIO B SURJIT Not Available Start: 05-19-2023 End: 05-19-2023 ambulatory ANTONOI B SURJIT Not Available Start: 2023 End: 2023 ambulatory ANTONIO B SURJIT Not Available Start: 05-12-2023 End: 05-13-2023 ambulatory ANTONIO B SURJIT Not Available Start: 05-08-2023 End: 05-08-2023 ambulatory ANTONIO B SURJIT Not Available Start: 05-05-2023 End: 05-05-2023 [...] End: 04-10-2020 Patient encounter procedure Adelita Epperson [facility] Start: 12-17-2018 End: 12-20-2018 Patient encounter procedure ADELITA EPPERSON [facility] Start: 12-17-2018 End: 12-19-2018 Subsequent hospital visit by physician [facility] Comment on above: Low back pain, unspe cified back pain laterality, unspecified chronicity, with sciatica presence unspecified Start: 03-02-2018 Patient encounter procedure Dale Tanus Juan Francisco Facility:[id number] Start: 09-29-2017 Patient encounter procedure Dale Serrano Juan Francisco Facility:[id number] Procedures Date Procedure Procedure Detail Performing Clinician Start: 12-17-2018 Radex spine lumbosac ral minimum 4 views ADELITA EPPERSON Start: 12-17-2018 Radex spine lumbosac ral minimum 4 views Adelita Henry Work Phone: Start: 09-29-2017 Follow-up visit Plan of Treatment Date Care Activity Detail Author Start: 07-12-2024 End: 07-12-2024 Patient encounter procedure 07/12/2024 8:45 AM EDT Office Visit [facility] [address] [place] [phone] Adelita Epperson MD [address] [place] [address] [facility] Start: 06-15-2024 End: 06-15-2024 Patient encounter procedure 06/15/2024 3:45 PM EST Office Visit [facility] [address] [place] [phone] Al Marin S, DO [address] [place] [address] [facility] Start: 04-05-2024 End: 04-05-2024 Patient encounter procedure 04/05/2024 8:15 AM EST Office Visit [facility] [address] [place] [address] Adelita Epperson MD [address] [place] [address] [facility] Start: 03-11-2024 End: 03-11-2024 Patient encounter procedure 03/11/2024 3:15 PM EST Office Visit [facility] [address] [place] [phone] Al Marin, DO [address] [place] [address] [facility] Start: 12-28-2023 Influenza vaccination Influenza Vacc ine (#1) [facility] Start: 08-26-2023 End: 08-26-2023 Patient encounter procedure 08/26/2023 3:45 PM EDT Office Visit [facility] [address] [place] [phone] Al Marin, DO [address] [place] [address] [facility] Start: 07-14-2023 End: 07-14-2023 Patient encounter procedure 07/14/2023 8:45 AM EDT Office Visit [facility] [address] [place] [phone] Adelita Epperson MD [address] [place] [address] [facility] Start: 06-23-2023 End: 06-23-2023 Patient encounter procedure 06/23/2023 8:00 AM EST Office Visit [facility] [address] [facility] [address] [place] [address] Marcel Haley NP [address] [place] [address] [facility] Start: 06-16-2023 End: 06-16-2023 ambulatory 06/16/2023 4:15 PM EST Treatment [facility] [address] [place] [address] Antonio Solomon, PT [address] [place] [address] [facility] Start: 06-09-2023 End: 06-09-2023 ambulatory 06/09/2023 4:30 PM EST Treatment [facility] [address] [place] [address] Antonio Solomon, PT [address] [place] [address] [facility] Start: 06-04-2023 End: 06-04-2024 MR Lumbar spine WO contrast MR lumbar spine wo contrast Imaging Routine DDD (degenerative disc disease), lumbar Lumbar herniated disc Expected: 06/04/2023 (Approximate), Expires: 06/04/2024 [facility] Work Phone: Comment on above: Expected: 06/04/2023 (Approximate), Expires: 06/04/2024 Start: 12-27-2022 Influenza vaccination Influenza Vacc ine (#1) [facility] Start: 12-27-2018 Influenza vaccination Flu vaccine (# 1) [place] Start: 1999 DTaP/Tdap/Td vaccine (1 - Tdap) DTaP/Tdap/Td vaccine (1 - Tdap) [place] Start: 1995 HIV screen HIV screen [place], [place] Start: 1993 Varicella Vaccine (1 of 2 - 13+ 2-dose series) Varicella Vaccine (1 of 2 - 13+ 2-dose series) [place] Start: 1986 Pneumococcal 0-64 ye ars Vaccine (1 of 1 - PPSV23) Pneumococcal 0-64 years Vaccine (1 of 1 - PPSV23) [place] Payers Date Payer Category Payer Self-pay [id number] 2020 Blue Cross Blue Shield BCBS [id number] 2020 Unknown [id number] 1.13.693.2 .[id number] 2017 Private Health Insurance [id number] 2017 Private Health Insurance AETTHAO Fer NADEEN xxxxxxxxxx 2017-Present [phone] [address] [place] [address] xxxxxxxxxx [id number] .7.3.212820.315 1980 Unknown [id number] 2.16.840.1.771320.3.579.2 .356 1980 Unknown [id number] 2.16.840.1.123748.3.579.2 .356 1980 Unknown [id number] 2.16.840.1.230580.3.579.2 .356 1980 Unknown [id number] 2.16.840.1.546505.3.579.2 .185 1980 Unknown [id number] 2.16.840.1.420881.3.579.2 .593 1980 Unknown [id number] 2.16.840.1.964133.3.579.2 .593 1980 Unknown [id number] 2.16.840.1.021335.3.579.2 .593 1980 Unknown [id number] 2.16.840.1.630423.3.579.2 .59 1980 Unknown [id number] 2.16.840.1.647374.3.579.2 .59 1980 Unknown [id number] 2.16.840.1.505466.3.579.2 .59 1980 Unknown [id number] 2.16.840.1.032183.3.579.2 .1258 1980 Unknown [id number] 2.16.840.1.404897.3.579.2 .1258 1980 Unknown [id number] 2.16.840.1.960792.3.579.2 .1258 1980 Unknown [id number] 2.16.840.1.785991.3.579.2 .1258 1980 Unknown [id number] 2.16.840.1.501018.3.579.2 .1258 1980 Unknown [id number] 2.16.840.1.756332.3.579.2 .1258 1980 Unknown [id number] 2.16.840.1.972997.3.579.2 .1258 1980 Unknown [id number] 2.16.840.1.585621.3.579.2 .1258 1980 Unknown [id number] 2.16.840.1.189612.3.579.2 .1258 1980 Unknown [id number] 2.16.840.1.762334.3.579.2 .1258 1980 Unknown [id number] 2.16.840.1.199525.3.579.2 .1258 1980 Unknown [id number] 2.16.840.1.848544.3.579.2 .1258 1980 Unknown [id number] 2.16.840.1.476784.3.579.2 .1259 1980 Unknown [id number] 2.16.840.1.164449.3.579.2 .1259 1980 Unknown [id number] 2.16.840.1.098158.3.579.2 .1259 1980 Unknown [id number] 2.16.840.1.313141.3.579.2 .1259 1980 Unknown [id number] 2.16.840.1.787972.3.579.2 .196 1959 Unknown [id number] Unknown [id number] 2.16.840.1.498702.3.579.2 .531 Social History Date Type Detail Facility Start: 04-28-1993 End: 10-07-2023 Tobacco smoking status NHIS Current every day smoker [place] Start: 01-16-2018 End: 11-07-2022 Alcohol intake No [place] Sex Assigned At Not on file [place] Start: 1980 Sex Assigned At Male [facility] Start: 04-28-1993 History of tobacco use Cigarette Smo ker [facility] Start: 11-07-2022 End: 02-25-2023 Cigarettes smoked current (pack per day) - Reported 0.5 [facility] Start: 02-25-2023 End: 10-07-2023 Tobacco use and exposure Smokeless tobacco non-user [facility] Start: 05-05-2023 End: 12-09-2023 Alcohol intake Lifetime non-drinker (finding) [facility] Start: 11-06-2022 Alcohol Comment caffeine:Type: energy drink 3-- 16 0z cans per day [facility] Start: 10-10-2022 Gender identity Identifies as male gender (finding) [facility] Start: 10-10-2022 Sexual orientation Choose not to dis close [facility] Start: 07-14-2023 Alcohol Comment caffeine:Type: energy drink 1-- 16 0z can per day [facility] Goals Date Patient Goal Desired Activity /State Clinical Notes 10-04-2021 to 06-03-2023 Telephone Encounter - Nida Gross - 06/03/2023 2:47 PM ESTTelephone Encounter - Nida Gross - 06/03/2023 2:47 PM EST Note Date & Type Note Facility 06-03-2023 Telephone encount er Note Pt called back and would like to do MRI at [facility]. [facility] 06-03-2023 Miscellaneous Notes Formattin g of this note might be different from the original. Pt called back and would like to do MRI at [facility]. documented in this encounter [facility] 07-23-2022 Note PAIN MANAGEMENT CONS ULTATION CONSULTATION DATE: 07/23/2022 ADDENDUM: The dictation mentions denervation of the L4-5, L5-S1 facet joint under fluoroscopic guidance by using radiofrequency ablation on the left side. The dictation should read: Proceed with radiofrequency ablation of the L2-3, L4-5 levels under fluoroscopic guidance on the left side. [facility] 07-23-2022 Note PAIN MANAGEMENT CONS ULTATION CONSULTATION DATE: 07/23/2022 ADDENDUM: The dictation mentions denervation of the L4-5, L5-S1 facet joint under fluoroscopic guidance by using radiofrequency ablation on the left side. The dictation should read: Proceeded with radiofrequency ablation of the L2-3, L4-5 levels under fluoroscopic guidance on the left side. [facility] 07-23-2022 Note CONSULTATION CONSULTATION DATE: 07/23/2022 TO: [...] to proceed with the outlined plan. 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 He reports 0/10 pain [...] in six months' time for re-evaluation. [facility] 01-03-2022 Note CONSULTATION CONSULTATION DATE: 01/03/2022 HISTORY [...] three months' time, unless otherwise indicated. [facility] 10-04-2021 Note CONSULTATION CONSULTATION DATE: 10/04/2021 This [...] gluconate 800 mg q.h.s. in addition to aqjk-tab-jiopshm ibuprofen 600 mg q.a.m. before work. Daily stretching and the use of heat were encouraged to aid with the spasms. We discussed about different vitamin regimens and the patient was willing to try. He will be followed up in the clinic in three months' time unless otherwise indicated. The patient agrees with the plan of care. [facility] Signed and Approved by: SEAN WELLS . 10/11/2021 16:03:00 [facility] Evaluation note Diagnosis DDD (degenerative disc disease), lumbar- Primary Degeneration of lumbar or lumbosacral intervertebral disc Lumbar herniated disc documented in this encounter [facility] HealthcareEvaluation noteNo assessment [facility] Work Phone: Evaluation note* Diagnosis Obesity (BMI 30-39.9) documented in this encounter [facility] Summary Purpose Family History No Family History Records FoundNo Family History Records FoundNo Family History Records FoundNo Family History Records FoundNo Family History Records FoundNo Family History Records FoundNo Family History Records FoundNo Family History Records FoundNo Family History Records Found Advance Directives Documents on File Type Date Recorded Patient [facility] Director Expl anation Advance Directives and 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 Advance Directive Response Recorded Date/ Time Advance [...] Procedures MR lumbar spine wo contrast Marcel Haley NP [address] [place] [address] Referral ID Status Reason Start Date Expiration Date V isits Requested Visits Authorized [id number] Pending Review 06/04/2023 12/01/2023 1 1 Additional Source Comments (unrecognized sect ion and content) No Status Records FoundNo Status Records FoundNo Status Records FoundNo Status Records FoundNo Status Records FoundNo Status Records FoundNo Status Records FoundNo Status Records FoundNo Status Records Found INFORMATION SOURCE (unrecogn ized section and content) DATE CREATED AUTHOR 04/05/2018 [facility] DATE CREATED AUTHOR AUTHOR'S ORGANIZ ATION 04/05/2018 [facility] DATE CREATED AUTHOR AUTHOR'S ORGANIZ ATION 12/20/2018 [facility] DATE CREATED AUTHOR AUTHOR'S ORGANIZ ATION 01/31/2019 [facility] DATE CREATED AUTHOR AUTHOR'S ORGANIZ ATION 08/08/2021 [facility] dical Specialist DATE CREATED AUTHOR AUTHOR'S ORGANIZ ATION 08/09/2022 [facility] DATE CREATED AUTHOR AUTHOR'S ORGANIZ ATION 09/04/2023 [facility] DATE CREATED AUTHOR AUTHOR'S ORGANIZ ATION 12/11/2023 [facility] dical Specialists EPIC DATE CREATED AUTHOR AUTHOR'S ORGANIZ ATION 01/11/2024 [facility] Care Teams (unrecognized sec tion and content) Wheat Combine Driver Relationship Specialty Start Date End Date Adelita Epperson MD [address] [place] [address] PCP - General Internal Medicine 11/06/22 Team Status: Active Member Role Status Dates Adelita Epperson MD Primary Care Provider Active Team Status: Inactive Member Role Status Dates Adelita Epperson MD Primary Care Provider Active St art: September 03, 2023 End: September 03, 2023 Manjinder Lynn Jr, Attending Provider Active S tart: September 03, 2023 End: September 03, 2023 Wheat Combine Driver Relationship Specialty Start Date End Date Adelita Epperson MD [address] [place] [address] PCP - General Internal Medicine 11/06/22 Adelita Epperson MD [address] [place] [address] PCP - [facility] 06/27/23 Goals (unrecognized section and content) Goals may be documented in a n alternate section Reason for Visit (unrecogniz ed section and content) Reason Onset Date Comments Med Refill 02/10/2024 FOR RECORDS PERTAINING TO PATIENTS WHO ARE [...] BE BASED ON THE PRIMARY CLINICAL RECORDS. [employer] provides no warranty or guarantee of the accuracy or completeness of information in this document.
== END 2024-02-17 10:54 | disposition home or self-care (01) ==
LOC: PM 10:54
PROVIDERS: PCP Internal Medicine; Visit Provider Anesthesiology Pain Medicine
DX: M79.18 Myalgia, other site (principal)
CPT/HCPCS: G0463; J0665; J3301

== ENCOUNTER 2024-03-04 08:39 | Outpatient (OUT) | payer BC, SELFPAY ==
--- NOTE | 2024-03-04 09:03 | P.CN_ITS ---
Consult Note: HPI Data of Consult Patient: known to practice within the last 3 years Consult date: 07/02/23 Requesting Physician: Jeanette Castro NP Primary Care Provider: ADELITA EPPERSON Consult Narrative Reason for consult: f/u Narrative: Omar Voss a pleasant 43 year old male presents for evaluation and management of chronic low back pain, hx of LX DDD and lumbar radiculopathy. Pain today 6/10 in right low back and leg, sharp shooting burning pain. patient finds mild benefit from tylenol, NSAIDs. Does utilize THC gummies for sleep. Has tried baclofen 10mg HS PRN with benefit. Prior Left L2,3 L4,5 facet RFA with 75% improvement ongoing in axial low back pain. Recently underwent right L4/5 TFESI with 100% improvement ongoing on the right side. Patient was placed on zonegran but it caused migraines and was discontinued. Patient has noticed increase numbness tingling and weakness of LLE cc:: CC: Jeanette Castro NP Review of Systems ROS Status of ROS 10 or more systems reviewed and unremark able except as noted in history and below Musculoskeletal Reports: back pain, extremity pain and joint pain PFSH PFSH Surgical History Hx of tonsillectomy ?Z90.89 - Acquired absence of other organs (ICD-10) History of tympanoplasty ?Z98.890 - Other specified postprocedural states (ICD-10) History of lumbar surgery ?Z98.890 - Other specified postprocedural states (ICD-10) Meds Home Medications and Allergies Home Medications ?Medication ?Instructions ?Recorded ?Confirmed ?Type thc gummies PO .qhs 07/03/23 History baclofen 10 mg tablet 10 mg PO .qhs 12/16/23 01/05/24 History zonisamide 50 mg capsule 50 mg PO DAILY 12/16/23 01/05/24 History Allergies Allergy/AdvReac Type Severity Reaction Status Date / Time No Known Drug Allergies Allergy Verified 01/05/24 07:48 Exam Constitutional Documenting provider has reviewed patient's vital signs: yes Common normals: no apparent distress, oriented x3, healthy appearing, alert and well nourished General appearance: cooperative HENMT Common normals: normocephalic, hearing grossly normal bilaterally and moist oral mucous membranes Head and scalp: normocephalic Eye Common normals: PERRL Pupil: PERRL Neck & C-Spine Common normals: full ROM General: normal visual inspection Chest Common normals: inspection of chest normal Respiratory Common normals: normal respiratory effort, no retractions and no use of accessory muscles Back & Pelvis Lumbar spine/lower back: pain with ROM, paraspinal muscle tenderness, paraspinal muscle spasm and straight leg raise positive left; straight leg raise negative right Sacroiliac joints: SI joint(s) abnormal Other: left sij positive mario(patricks), gaenslens, thigh thrust, compression test strength 4/5 in LLE, decreased sensation to left L4,5,S1 pattern strength 5/5 in RLE Extremity Common normals: normal to inspection and full ROM Neuro Common normals: oriented x3, CN's II-XII intact bilaterally, moves all extremities, no focal motor deficits, no sensory deficits noted and deep tendon reflexes 2+ bilaterally Sensorium/orientation: alert Motor exam: no movement abnormalities noted Psych Common normals: mental status grossly normal, thought process normal, cooperative, affect normal, speech normal and activity/motor behavior normal Speech: normal speech Thought process: normal thought process Results Additional Findings Additional findings: If on a controlled substance or opioids, I have checked an [place]AR[place] report on this patient and there are no aberrancies noted in the prescribing history.??If on a controlled substance or opioid a drug screen was completed and reviewed within the last year, and if there has not been a drug screen completed we ordered one today to monitor higher risk, state monitored pain medication use. As part of providing excellent, safe, comprehensive care, the following was completed at our patient's visit: 1. A medication reconciliation and review to ensure accurate knowledge of current/active medications, including asking our patients to inform us about any [id number] medications or herbal remedies/nutritional supplements/alternative remedies. 2. A review to specifically ensure our patients have had annual screening for screening for depression, screening for tobacco use, and screening for unhealthy alcohol use. For concerning screenings had a discussion with the patient, provided patient education, and recommended follow-up with primary care provider when appropriate. If patient noted with a risk of falling, they received education on strength, gait, and balance training to prevent future risk of falling. Assessment and Plan Assessment and Plan (1) Lumbar stenosis with neurogenic claudication: (2) Myofascial pain: (3) Lumbar spondylosis: (4) Sacroiliitis: Plan increase baclofen 10-20mg TID PRN pain/spasms right L4-5 L5-S1 TFESI under fluoroscopy for lumbar stenosis with NC continue HEP as tolerated continue NNCP f/u 2 weeks after injection, consider left SIJ injection if needed
--- NOTE | 2024-03-04 09:57 | P.CN_ITS ---
Consult Note: HPI Data of Consult Patient: known to practice within the last 3 years Consult date: 07/02/23 Requesting Physician: Jeanette Castro NP Primary Care Provider: ADELITA EPPERSON Consult Narrative Reason for consult: f/u Narrative: Omar Voss a pleasant 43 year old male presents for evaluation and management of chronic low back pain and left leg pain, hx of LX DDD and lumbar radiculopathy. Pain today 6/10 in left low back and leg, sharp shooting burning pain. patient finds mild benefit from tylenol, NSAIDs. Does utilize THC gummies for sleep. Has tried baclofen 10mg HS PRN with benefit. Prior Left L2,3 L4,5 facet RFA with 75% improvement ongoing in axial low back pain. Recently underwent right L4/5 TFESI with 100% improvement ongoing on the right side. Patient was placed on zonegran but it caused migraines and was discontinued. Patient has noticed increase numbness tingling and weakness of LLE cc:: CC: Jeanette Castro NP Review of Systems ROS Status of ROS 10 or more systems reviewed and unremark able except as noted in history and below Musculoskeletal Reports: back pain and extremity pain PFSH PFSH Surgical History Hx of tonsillectomy ?Z90.89 - Acquired absence of other organs (ICD-10) History of tympanoplasty ?Z98.890 - Other specified postprocedural states (ICD-10) History of lumbar surgery ?Z98.890 - Other specified postprocedural states (ICD-10) Meds Home Medications and Allergies Home Medications ?Medication ?Instructions ?Recorded ?Confirmed ?Type thc gummies PO .qhs 07/03/23 History baclofen 10 mg tablet 10 mg PO .qhs 12/16/23 01/05/24 History zonisamide 50 mg capsule 50 mg PO DAILY 12/16/23 01/05/24 History Allergies Allergy/AdvReac Type Severity Reaction Status Date / Time No Known Drug Allergies Allergy Verified 01/05/24 07:48 Exam Constitutional Documenting provider has reviewed patient's vital signs: yes Common normals: no apparent distress, oriented x3, healthy appearing, alert and well nourished General appearance: cooperative HENMT Common normals: normocephalic, hearing grossly normal bilaterally and moist oral mucous membranes Head and scalp: normocephalic Eye Common normals: PERRL Pupil: PERRL Neck & C-Spine Common normals: full ROM General: normal visual inspection Chest Common normals: inspection of chest normal Respiratory Common normals: normal respiratory effort, no retractions and no use of accessory muscles Back & Pelvis Lumbar spine/lower back: pain with ROM, paraspinal muscle tenderness, paraspinal muscle spasm and straight leg raise positive left; straight leg raise negative right Sacroiliac joints: SI joint(s) abnormal Other: left sij positive mario(patricks), gaenslens, thigh thrust, compression test strength 4/5 in LLE, decreased sensation to left L4,5,S1 pattern strength 5/5 in RLE Extremity Common normals: normal to inspection and full ROM Neuro Common normals: oriented x3, CN's II-XII intact bilaterally, moves all extremities, no focal motor deficits, no sensory deficits noted and deep tendon reflexes 2+ bilaterally Sensorium/orientation: alert Motor exam: strength 5/5 throughout and no movement abnormalities noted Psych Common normals: mental status grossly normal, thought process normal, cooperative, affect normal, speech normal and activity/motor behavior normal Speech: normal speech Thought process: normal thought process Results Additional Findings Additional findings: If on a controlled substance or opioids, I have checked an [place]AR[place] report on this patient and there are no aberrancies noted in the prescribing history.??If on a controlled substance or opioid a drug screen was completed and reviewed within the last year, and if there has not been a drug screen completed we ordered one today to monitor higher risk, state monitored pain medication use. As part of providing excellent, safe, comprehensive care, the following was completed at our patient's visit: 1. A medication reconciliation and review to ensure accurate knowledge of current/active medications, including asking our patients to inform us about any lnag-xji-aacgufc medications or herbal remedies/nutritional supplements/alternative remedies. 2. A review to specifically ensure our patients have had annual screening for screening for depression, screening for tobacco use, and screening for unhealthy alcohol use. For concerning screenings had a discussion with the patient, provided patient education, and recommended follow-up with primary care provider when appropriate. If patient noted with a risk of falling, they received education on strength, gait, and balance training to prevent future risk of falling. Assessment and Plan Assessment and Plan (1) Lumbar stenosis with neurogenic claudication: (2) Lumbar radiculopathy: (3) Myofascial pain: (4) Lumbar spondylosis: (5) Sacroiliitis: Plan increase baclofen 10-20mg TID PRN pain/spasms left L4-5 L5-S1 TFESI under fluoroscopy for lumbar stenosis with NC/lumbar radiculopathy continue HEP as tolerated continue NNCP f/u 2 weeks after injection, consider left SIJ injection if needed
== END 2024-03-04 08:40 | disposition home or self-care (01) ==
LOC: PM 08:39
PROVIDERS: PCP Internal Medicine; Visit Provider Nurse Practitioner
DX: M48.062 Spinal stenosis, lumbar region with neurogenic claudication (principal); M54.16 Radiculopathy, lumbar region; M79.18 Myalgia, other site; M47.816 Spondylosis without myelopathy or radiculopathy, lumbar region; M46.1 Sacroiliitis, not elsewhere classified
CPT/HCPCS: G0463

== ENCOUNTER 2024-03-15 06:37 | Day surgery (SDC) | payer BC, SELFPAY ==
--- OUTSIDE RECORDS SUMMARY | 2024-03-15 06:41 | XMS_ITS | CCD ---
Author Organization [facility] CliniSymd Care Team Providers Care Service And Repair Supervisor Name Role Phone Jeninfer Muller Unavailable Unavailable Juan Francisco, Maroun Tanus Unavailable Unavailable Adelita Epperson Unavailable Unavailable Juan Francisco, Maroun Tanus Unavailable Unavailable Pelon Head Unavailable Unavail able Adelita Epperson Unavailable Unavailable Juan Francisco, Maroun Tanus Unavailable Unavailable Juan Francisco, Maroun Tanus Unavailable Unavailable Adelita Epperson Unavailable Unavailable ADELITA EPPERSON Primary Care Unavailable Adelita Epperson Primary Care Provider [phone] Adelita Epperson Primary Care Provider Dereck Morrow Attending Provider [phone] LAKSHMIPATHY ., NARENDRANATH Attending Mell vailable [...] Provider DO Manjinder Lynn Jr Attending Provider Chloé CID, Laura Gutierrez Attending Unavailable Adelita Epperson MD Unavailable APLING, MARCEL Doherty Attending Unavailable HILL, ADELITA Whitaker Referring Unavailable APLING, MARCEL Doherty [...] Attending Unavailable APLING, MARCEL Doherty Referring Unavailable SAMEER, TONYA Monroe Attending Unavailable ZHOU, ADELITA Whitaker Attending Unavailable TOMAS, AL Tate Attending Unavailable ZHOU, ADELITA Whitaker Attending Unavailable DIDIONHANS Attending Unavailable BICYNTHIA, AL Tate Attending Unavailable BIEDENTHOMAS, AL Tate Attending Unavailable SURJIT, ANTONIO Doherty Attending Unavailable ZHOU, ADELITA Whitaker Referring Unavailable Unavailable Unavailable Unavailable Medications Current Medications [...] 5-325 MG per tablet Cannabinoids (medical cannabis) (4 sources) Cannabinoids (medical cannabis) Medicinal Marijuana Active Cannabinoids (me dical cannabis) Medicinal Marijuana 0 Active ibuprofen 800 mg oral tablet (4 sources) Nonsteroidal Anti-inflammatory Drug take 1 tablet by mouth every six hours as needed ibuprofen 800 MG tablet Take 800 mg by mouth every 6 (six) hours if needed. Active naproxen 375 mg oral tablet (1 source) Nonsteroidal Anti-inflammatory Drug naproxen (NAPROSYN) 375 MG tablet Take 375 mg by mouth as needed for Pain 0 Active phentermine hydrochloride 37.5 mg oral tablet (4 sources) Sympathomimetic Amine Anorectic Start: End: take 1 tablet by mouth before mealtime phentermine (Adipex-P) 37.5 MG tablet Indications: Obesity (BMI 30-39.9) Take 1 tablet (37.5 mg) by mouth in the morning. Take before meals. 30 tablet 02/11/2024 Active Problems Active Problems Problem Classification Problem Date Documented Date Episodic/Chronic Other connective tissue disease (1 source) Other muscle spasm; Translations: [OTHER MUSCLE SPASM] Onset: 07-26-2022 Episodic Other ear and sense organ disorders (4 sources) Conductive hearing loss, unilateral, left ear, [...] region] Onset: 01-24-2010 Resolved: 02-24-2023 06-24-2017 Chronic Spondylosis; intervertebral disc disorders; other back problems (20 sources) Low back pain; Translations: [Muscle spasm of back] Onset: 10-04-2021 Resolved: 02-24-2023 Episodic Unclassified (1 source) Condctv hear loss, uni, left ear, w unrestr hear cntra side / H90.12(ICD-10) Onset: 09-29-2017 Unclassified (1 source) Unspecified cholesteatoma, left ear / H71.92(ICD-10) Onset: 09-29-2017 Unclassified (1 source) LOW BACK PAIN, UNSPECIFIED; Translations: [LOW BACK PAIN, UNSPECIFIED] Onset: 04-02-2022 Past or Other Problems Problem Classification Problem Date Documented Da te Episodic/Chronic Esophageal disorders (4 sources) Laryngopharyngeal reflux; Translations: [Gastro-esophageal reflux disease without esophagitis] Onset: 3 Resolved: 3 02-24-2023 Chronic Other diseases of veins and lymphatics (4 sources) Lymphedema; Translations: [Lymphedema, not elsewhere classified] Onset: 9 Resolved: 3 02-24-2023 Chronic Other gastrointestinal disorders (4 sources) Chronic constipation; Translations: [Other constipation] Onset: 0 Resolved: 3 02-24-2023 Episodic Other liver diseases (4 sources) Elevated liver enzymes level; Translations: [Abnormal levels of other serum enzymes] Onset: 3 Resolved: 4 11-01-2022 Episodic Other nutritional; endocrine; and metabolic disorders (5 sources) Body mass index 30+ - obesity; Translations: [Obesity, unspecified] Onset: 3 Resolved: 3 02-24-2023 Chronic Residual codes; unclassified (4 sources) FH: premature coronary heart disease; Translations: [Family history of ischemic heart disease and other diseases of the circulatory system] Onset: 3 11-07-2022 Episodic Results Test Name Value Interpretation Reference Range Facility Alanine aminotransferase [En zymatic activity/volume] in Serum or PlasmaOrdered By: Manjinder Lynn on 09-03-2023 ALT [Catalytic activity/Vol] 29 U/L 7-52 [facility] Albumin [Mass/volume] in Ser um or Plasma by Bromocresol green (BCG) dye binding methoOrdered By: Manjinder Lynn on 09-03-2023 Albumin BCG dye [Mass/Vol] 4.6 g/dL 3.5-5.7 [facility] Alkaline phosphatase [Enzyma tic activity/volume] in Serum or PlasmaOrdered By: Manjinder Lynn on 09-03-2023 ALP [Catalytic activity/Vol] 75 U/L 34-104 [facility] Aspartate aminotransferase [ Enzymatic activity/volume] in Serum or PlasmaOrdered By: Manjinder Lynn on 09-03-2023 AST [Catalytic activity/Vol] 20 U/L 13-39 [facility] Basophils Auto (Bld) [#/Vol] Ordered By: Manjinder Lynn on 09-03-2023 Basophils (Bld) [#/Vol] 0.1 10*3/uL 0.0-0.2 [facility] Basophils/100 WBC Auto (Bld) Ordered By: Manjinder Lynn on 09-03-2023 Basophils/100 WBC (Bld) 1.1 % . [facility] Bilirubin.total [Mass/volume ] in Serum or PlasmaOrdered By: Manjinder Lynn on 09-03-2023 Bilirubin [Mass/Vol] 1.3 mg/dL 0.3-1.0 [facility] Comment on above: Samples from patient s who have taken Naproxen have shown spurious elevation in Total Bilirubin levels. A metabolite of Naproxen, O-desmethylnaproxen, has been shown to interfere with the Tracy-María method for measuring Total Bilirubin. Calcium [Mass/volume] in Ser um or PlasmaOrdered By: Manjinder Lynn on 09-03-2023 Calcium [Mass/Vol] 9.5 mg/dL 8.6-10.3 [facility] Carbon dioxide, total [Moles /volume] in Serum or PlasmaOrdered By: Manjinder Lynn on 09-03-2023 CO2 [Moles/Vol] 27.6 mmol/L 21.0-31.0 [facility] Chloride [Moles/volume] in S cheryl or PlasmaOrdered By: Manjinder Lynn on 09-03-2023 Chloride [Moles/Vol] 103 mmol/L 98-107 [facility] Complete Blood Count no refl exon 09-03-2023 Basophils (Bld) [#/Vol] 0.1 10*3/uL Normal 0.0-0.2 [facility] Comment on above: Result Comment: PERF ORMED BY: [place] [address] PATHOLOGIST WORKERS COMPENSATION CLAIMS SUPERVISOR JOÃO YATES M.D. Performed By: #### C LIANA, [facility] CBC #### [address] Basophils/100 WBC (Bld) 1.1 % Normal . T estuardo [facility] Comment on above: Performed By: #### C LIANA, [facility] CBC #### [place] [address] [place] Eosinophils (Bld) [#/Vol] 0.4 10*3/uL Normal 0.0-0.45 [facility] Comment on above: Performed By: #### C LIANA, [facility] CBC #### [address] Eosinophils/100 WBC (Bld) 4.9 % Normal . [facility] Comment on above: Performed By: #### C LIANA, [facility] CBC #### [address] Erythrocyte distribution width (RBC) [Ratio] 13.4 % Normal 12.0-14.8 [facility] Comment on above: Performed By: #### C LIANA, [facility] CBC #### [address] Hematocrit (Bld) [Volume fraction] 43.4 % Normal 38.8-50.0 [facility] Comment on above: Performed By: #### C LIANA, [facility] CBC #### [place] [address] [place] Hemoglobin (Bld) [Mass/Vol] 15.1 g/dL Normal 13.0-17.0 [facility] Comment on above: Performed By: #### C LIANA, [facility] CBC #### [place] [address] [place] Lymphocytes (Bld) [#/Vol] 3.5 10*3/uL Normal 1.00-4.8 [facility] Comment on above: Performed By: #### C LIANA, [facility] CBC #### [address] Lymphocytes/100 WBC (Bld) 38.0 % Normal . [facility] Comment on above: Performed By: #### C LIANA, [facility] CBC #### [address] MCH (RBC) [Entitic mass] 30.6 pg Normal 27.5-35.2 [facility] Comment on above: Performed By: #### C LIANA, [facility] CBC #### [address] MCV (RBC) [Entitic vol] 88.2 fL Normal 83.5-101 [facility] Comment on above: Performed By: #### C LIANA, [facility] CBC #### [address] Mean Corpuscular HGB Conc 34.7 g/dL Normal 32.5-35.6 [facility] Comment on above: Performed By: #### C LIANA, [facility] CBC #### [place] [address] [place] Monocytes (Bld) [#/Vol] 0.7 10*3/uL Normal 0.0-0.8 [facility] Comment on above: Performed By: #### C LIANA, [facility] CBC #### [address] Monocytes/100 WBC (Bld) 7.1 % Normal . [facility] Comment on above: Performed By: #### C LIANA, [facility] CBC #### [place] [address] [place] Neutrophils (Bld) [#/Vol] 4.5 10*3/uL Normal 1.8-7.7 [facility] Comment on above: Performed By: #### C LIANA, [facility] CBC #### [address] Neutrophils/100 WBC (Bld) 48.9 % Normal . [facility] Comment on above: Performed By: #### C LIANA, [facility] CBC #### [address] [place] [address] [place] NRBC% 0.2 /100{WBC} Normal 0-0.5 [facility] Comment on above: Performed By: #### C LIANA, [facility] CBC #### [address] Platelet mean volume (Bld) [Entitic vol] 9.6 fL Normal 6.6-10.1 [facility] Comment on above: Performed By: #### C LIANA, [facility] CBC #### [address] Platelets (Bld) [#/Vol] 230 10*3/uL Normal 150-450 [facility] Comment on above: Performed By: #### C LIANA, [facility] CBC #### [address] RBC (Bld) [#/Vol] 4.92 10*6/uL Normal 3.90-5.60 [facility] Comment on above: Performed By: #### C LIANA, [facility] CBC #### [address] WBC (Bld) [#/Vol] 9.2 10*3/uL Normal 4.1-10.5 [facility] Comment on above: Performed By: #### C LIANA, [facility] CBC #### [address] Comprehensive Metabolic Pane serafin 09-03-2023 Albumin [Mass/Vol] 4.6 g/dL Normal 3.5-5.7 [facility] Comment on above: Performed By: #### C MP, [facility] CBC #### [address] Albumin/Globulin [Mass ratio] 2.1 {ratio} Normal [facility] Comment on above: Performed By: #### C MP, [facility] CBC #### [address] ALP [Catalytic activity/Vol] 75 U/L Normal 34-104 [facility] Comment on above: Result Comment: PERF ORMED BY: [place] [address] PATHOLOGIST WORKERS COMPENSATION CLAIMS SUPERVISOR JOÃO YATES M.D. Performed By: #### C LIANA, [facility] CBC #### [address] ALT [Catalytic activity/Vol] 29 U/L Normal 7-52 [facility] Comment on above: Performed By: #### C LIANA, [facility] CBC #### [address] Anion gap [Moles/Vol] 11.4 mmol/L Normal 6.0-15.0 [facility] Comment on above: Performed By: #### C LIANA, [facility] CBC #### [address] AST [Catalytic activity/Vol] 20 U/L Normal 13-39 [facility] Comment on above: Performed By: #### C LIANA, [facility] CBC #### [address] Bilirubin [Mass/Vol] 1.3 mg/dL High 0.3-1.0 [facility] Comment on above: Result Comment: Samp les from patients who have taken Naproxen have shown spurious elevation in Total Bilirubin levels. A metabolite of Naproxen, O-desmethylnaproxen, has been shown to interfere with the Jendrassik-Grof method for measuring Total Bilirubin. Performed By: #### C LIANA, [facility] CBC #### [address] Calcium [Mass/Vol] 9.5 mg/dL Normal 8.6-10.3 [facility] Comment on above: Performed By: #### C LIANA, [facility] CBC #### [place] [address] [place] Chloride [Moles/Vol] 103 mmol/L Normal 98-107 [facility] Comment on above: Performed By: #### C LIANA, [facility] CBC #### [place] [address] [place] CO2 [Moles/Vol] 27.6 mmol/L Normal 21.0-31.0 [facility] Comment on above: Performed By: #### C LIANA, [facility] CBC #### [address] Creatinine [Mass/Vol] 1.22 mg/dL Normal 0.70-1.30 [facility] Comment on above: Performed By: #### C LIANA, [facility] CBC #### [address] GFR/1.73 sq M.predicted MDRD (S/P/Bld) [Vol rate/Area] mL/min/{1.73_m2} Normal [facility] Comment on above: Performed By: #### C LIANA, [facility] CBC #### [address] Globulin (S) [Mass/Vol] 2.2 g/dL Normal T [facility] Comment on above: Performed By: #### C LIANA, [facility] CBC #### [address] Glucose [Mass/Vol] 117 mg/dL High 70-100 [facility] Comment on above: Result Comment: [place] Glucose Reference Range is dependent on time and content of last meal. Glucose of more than 200 mg/dL in a nonstressed, ambulatory subject supports the diagnosis of Diabetes Mellitus. ADA recommended reference range Performed By: #### C LIANA, [facility] CBC #### [address] Potassium [Moles/Vol] 4.0 mmol/L Normal 3.5-5.1 [facility] Comment on above: Performed By: #### C LIANA, [facility] CBC #### [address] Protein [Mass/Vol] 6.8 g/dL Normal 6.4-8.9 [facility] Comment on above: Performed By: #### C LIANA, [facility] CBC #### [place] [address] [place] Sodium [Moles/Vol] 138 mmol/L Normal 136-145 [facility] Comment on above: Performed By: #### C MP, [facility] CBC #### [facility] [address] [place] [address] [place] Urea nitrogen [Mass/Vol] 11 mg/dL Normal 7-25 [facility] Comment on above: Performed By: #### C MP, [facility] CBC #### [facility] [address] [place] [address] [place] Creatinine [Mass/volume] in Serum or PlasmaOrdered By: Manjinder Lynn on 09-03-2023 Creatinine [Mass/Vol] 1.22 mg/dL 0.70-1.30 [facility] Eosinophils Auto (Bld) [#/Vo l]Ordered By: Manjinder Lynn on 09-03-2023 Eosinophils (Bld) [#/Vol] 0.4 10*3/uL 0.0-0.45 [facility] Eosinophils/100 WBC Auto (Bl d)Ordered By: Manjinder Lynn on 09-03-2023 Eosinophils/100 WBC (Bld) 4.9 % . [facility] Erythrocyte distribution wid th Auto (RBC) [Ratio]Ordered By: Manjinder Lynn on 09-03-2023 Erythrocyte distribution width (RBC) [Ratio] 13.4 % 12.0-14.8 [facility] Globulin Calc (S) [Mass/Vol] Ordered By: Manjinder Lynn on 09-03-2023 Globulin (S) [Mass/Vol] 2.2 g/dL [facility] Glucose [Mass/volume] in Ser um or PlasmaOrdered By: Manjinder Lynn on 09-03-2023 Glucose [Mass/Vol] 117 mg/dL 70-100 [facility] Comment on above: ADA recommended refe rence rangeRandom Glucose Reference Range is dependent on time and content of last meal. Glucose of more than 200 mg/dL in a nonstressed, ambulatory subject supports the diagnosis of Diabetes Mellitus. Hematocrit Auto (Bld) [Volum e fraction]Ordered By: Manjinder Lynn on 09-03-2023 Hematocrit (Bld) [Volume fraction] 43.4 % 38.8-50.0 [facility] Hemoglobin [Mass/volume] in BloodOrdered By: Manjinder Lynn on 09-03-2023 Hemoglobin (Bld) [Mass/Vol] 15.1 g/dL 13.0-17.0 [facility] Leukocytes [#/volume] correc padma for nucleated erythrocytes in Blood by Automated counOrdered By: Manjinder Lynn on 09-03-2023 WBC corrected for nucl RBC Auto (Bld) [#/Vol] 9.2 10*3/uL 4.1-10.5 [facility] Lymphocytes Auto (Bld) [#/Vo l]Ordered By: Manjinder Lynn on 09-03-2023 Lymphocytes (Bld) [#/Vol] 3.5 10*3/uL 1.00-4.8 [facility] Lymphocytes/100 WBC Auto (Bl d)Ordered By: Manjinder Lynn on 09-03-2023 Lymphocytes/100 WBC (Bld) 38.0 % . [facility] MCH Auto (RBC) [Entitic mass ]Ordered By: Manjinder Lynn on 09-03-2023 MCH (RBC) [Entitic mass] 30.6 pg 27.5-35.2 [facility] MCHC Auto (RBC) [Mass/Vol]Or dered By: Manjinder Lynn on 09-03-2023 MCHC (RBC) [Mass/Vol] 34.7 g/dL 32.5-35.6 [facility] MCV Auto (RBC) [Entitic vol] Ordered By: Manjinder Lynn on 09-03-2023 MCV (RBC) [Entitic vol] 88.2 fL 83.5-[address] [facility] Monocytes Auto (Bld) [#/Vol] Ordered By: Manjinder Lynn on 09-03-2023 Monocytes (Bld) [#/Vol] 0.7 10*3/uL 0.0-0.8 [facility] Monocytes/100 WBC Auto (Bld) Ordered By: Manjinder Lynn on 09-03-2023 Monocytes/100 WBC (Bld) 7.1 % . [facility] Neutrophils Auto (Bld) [#/Vo l]Ordered By: Manjinder Lynn on 09-03-2023 Neutrophils (Bld) [#/Vol] 4.5 10*3/uL 1.8-7.7 [facility] Neutrophils/100 WBC Auto (Bl d)Ordered By: Manjinder Lynn on 09-03-2023 Neutrophils/100 WBC (Bld) 48.9 % . [facility] No Panel InformationOrdered By: Manjinder Lynn on 09-03-2023 Estimated GFR (CKD-EPI) > 60.0 mL/Min [facility] Creatinine Clearance (Chem N/A [facility] Nucleated erythrocytes [Pres ence] in Blood by Automated countOrdered By: Manjinder Lynn on 09-03-2023 Nucleated RBC Auto Ql (Bld) 0.2 /100{WBC} 0-0.5 [facility] Platelet mean volume Auto (B ld) [Entitic vol]Ordered By: Manjinder Lynn on 09-03-2023 Platelet mean volume (Bld) [Entitic vol] 9.6 fL 6.6-10.1 [facility] Platelets Auto (Bld) [#/Vol] Ordered By: Manjinder Lynn on 09-03-2023 Platelets (Bld) [#/Vol] 230 10*3/uL 150-450 [facility] Potassium [Moles/volume] in Serum or PlasmaOrdered By: Manjinder Lynn on 09-03-2023 Potassium [Moles/Vol] 4.0 mmol/L 3.5-5.1 [facility] Protein [Mass/volume] in Ser um or PlasmaOrdered By: Majninder Lynn on 09-03-2023 Protein [Mass/Vol] 6.8 g/dL 6.4-8.9 [facility] RBC Auto (Bld) [#/Vol]Ordere d By: Manjinder Lynn on 09-03-2023 RBC (Bld) [#/Vol] 4.92 10*6/uL 3.90-5.60 [facility] Serum or plasma albumin/glob ulin mass ratioOrdered By: Manjinder Lynn on 09-03-2023 Albumin/Globulin [Mass ratio] 2.1 {ratio} [facility] Serum or plasma anion gap de terminationOrdered By: Manjinder Lynn on 09-03-2023 Anion gap [Moles/Vol] 11.4 mmol/L 6.0-15.0 [facility] Sodium [Moles/volume] in Ser um or PlasmaOrdered By: Manjinder Lynn on 09-03-2023 Sodium [Moles/Vol] 138 mmol/L 136-145 [facility] Urea nitrogen [Mass/volume] in Serum or PlasmaOrdered By: Manjinder Lynn on 09-03-2023 Urea nitrogen [Mass/Vol] 11 mg/dL 7-25 [facility] WBC Auto (Bld) [#/Vol]Ordere d By: Manjinder Lynn on 09-03-2023 WBC (Bld) [#/Vol] 9.2 10*3/uL 4.1-10.5 [facility] XR chest 1Von 09-03-2023 XR chest 1V [place] [address] XRay Report Signed Patient: Luís Calhoun MR#: [id number] : 1980 Acct:[id number] Age/Sex: 43 / M ADM Date: 09/03/23 Loc: [place] Room: Type: [facility] Attending Dr: Manjinder Lynn Jr, DO Copies [...] Pelon Salazar M.D.09/03/2023 1:17 PM Dictation Location: [place] [address] Transcribed By: [facility] 09/03/23 1317 Dictated By: Pelon Salazar DO 09/03/23 1317 Signed By: 09/03/23 1317 Normal [facility] Complete Blood Counton 08-07 Erythrocyte distribution width (RBC) [Ratio] 13.0 % Normal 11.0-15.0 [facility] Specialist Comment on above: Performed By: #### L IPD, CBC, CMP #### [facility] [address] [place], [place] [id number] Hematocrit (Bld) [Volume fraction] 46.2 % Normal 38.5-50.0 [facility] Comment on above: Performed By: #### L IPD, CBC, CMP #### [facility] [address] [place], [place] [id number] Hemoglobin (Bld) [Mass/Vol] 15.6 g/dL Normal 13.0-17.1 [facility] Comment on above: Performed By: #### L IPD, CBC, CMP #### [facility] [address] [place], [place] [id number] MCH (RBC) [Entitic mass] 29.8 pg Normal 27.0-33.0 [facility] Comment on above: Performed By: #### L IPD, CBC, CMP #### [facility] [address] [place], [place] [id number] MCHC (RBC) [Mass/Vol] 33.8 g/dL Normal 32.0-36.0 [facility] Comment on above: Performed By: #### L IPD, CBC, CMP #### [facility] [address] [place], [place] [id number] MCV (RBC) [Entitic vol] 88 fL Normal 80-100 [facility] Specialist Comment on above: Performed By: #### L IPD, CBC, CMP #### [facility] [address] [place], [place] [id number] Platelet mean volume (Bld) [Entitic vol] 11.20 fL Normal 7.50-12.50 [facility] Specialist Comment on above: Performed By: #### L IPD, CBC, CMP #### [facility] [address] [place], [place] [id number] Platelets (Bld) [#/Vol] 231 10*3/uL Normal 140-400 [facility] Comment on above: Performed By: #### L IPD, CBC, CMP #### [facility] [address] [place], [place] [id number] RBC (Bld) [#/Vol] 5.24 10*6/uL Normal 4.20-5.80 [facility] Resume Specialist Comment on above: Performed By: #### L IPD, CBC, CMP #### [facility] [address] [place], [place] [id number] RDW-SD 42.1 fL Normal 37.0-50.0 [facility] Resume Specialist Comment on above: Performed By: #### L IPD, CBC, CMP #### [facility] [address] [place], [place] [id number] WBC (Bld) [#/Vol] 9.2 10*3/uL Normal 3.8-11.0 [facility] [place] Resume Specialist Comment on above: Performed By: #### L IPD, CBC, CMP #### [facility] [address] [place], [place] [id number] Comprehensive Metabolic Pane serafin 08-07-2021 Albumin [Mass/Vol] 4.7 g/dL Normal 3.6-5.1 [facility] Resume Specialist Comment on above: Performed By: #### L IPD, CBC, CMP #### [facility] [address] [place], [place] [id number] Albumin/Globulin [Mass ratio] 2.4 {ratio} Normal 1.0-2.5 [facility] Resume Specialist Comment on above: Performed By: #### L IPD, CBC, CMP #### [facility] [address] [place], [place] [id number] ALP [Catalytic activity/Vol] 76 U/L Normal 40-129 [facility] Resume Specialist Comment on above: Performed By: #### L IPD, CBC, CMP #### [facility] [address] [place], [place] [id number] ALT [Catalytic activity/Vol] 52 U/L High 9-46 [facility] Resume Specialist Comment on above: Result Comment: 03/28 Female reference range changed. Performed By: #### L IPD, CBC, CMP #### [facility] [address] [place], [place] [id number] Anion gap [Moles/Vol] 18 mmol/L Normal 12-20 [facility] [place] [facility] Comment on above: Result Comment: Effe ctive 05/03/2019 reference range changed. Performed By: #### L IPD, CBC, CMP #### [facility] [address] [place], [place] [id number] AST [Catalytic activity/Vol] 36 U/L Normal 10-40 [facility] Comment on above: Performed By: #### L IPD, CBC, CMP #### [facility] [address] [place], [place] [id number] Bilirubin [Mass/Vol] 1.27 mg/dL High 0.30-1.20 [facility] Comment on above: Performed By: #### L IPD, CBC, CMP #### [facility] [address] [place], [place] [id number] BUN/CREA 10 Ratio Normal 6-22 [facility] Comment on above: Performed By: #### L IPD, CBC, CMP #### [facility] [address] [place], [place] [id number] Calcium [Mass/Vol] 9.6 mg/dL Normal 8.6-10.2 [facility] Comment on above: Performed By: #### L IPD, CBC, CMP #### [facility] [address] [place], [place] [id number] Chloride [Moles/Vol] 104 mmol/L Normal 98-107 [facility] Comment on above: Performed By: #### L IPD, CBC, CMP #### [facility] [address] [place], [place] [id number] CO2 [Moles/Vol] 22 mmol/L Normal 20-31 [facility] Comment on above: Performed By: #### L IPD, CBC, CMP #### [facility] [address] [place], [place] [id number] Creatinine [Mass/Vol] 1.0 mg/dL Normal 0.7-1.4 [facility] Comment on above: Performed By: #### L IPD, CBC, CMP #### [facility] [address] [place], [place] [id number] eGFRAA 96 mL/min/1.73m2 Normal >60 [facility] Comment on above: Performed By: #### L IPD, CBC, CMP #### [facility] [address] [place], [place] [id number] eGFRNAA 80 mL/min/1.73m2 Normal >60 [facility] Resume Specialist Comment on above: Performed By: #### L IPD, CBC, CMP #### [facility] [address] [place], [place] [id number] Globulin (S) [Mass/Vol] 2.0 g/dL Normal 1.9-3.7 [facility] Special[facility] Comment on above: Performed By: #### L IPD, CBC, CMP #### [facility] [address] [place], [place] [id number] Glucose [Mass/Vol] 76 mg/dL Normal 65-99 Manuel[facility] [place] Resume Specialist Comment on above: Result Comment: For FASTING Glucose --- ADA reference ranges: Normal 65-99 mg/dl Prediabetes 100-125 Diabetes >/= 126 Performed By: #### L IPD, CBC, CMP #### [facility] [address] [place], [place] [id number] Potassium [Moles/Vol] 4.7 mmol/L Normal 3.5-5.5 [facility] Specialist Comment on above: Result Comment: Spec imen is hemolyzed. Results may be affected. Performed By: #### L IPD, CBC, CMP #### [facility] [address] [place], [place] [id number] Protein [Mass/Vol] 6.7 g/dL Normal 6.1-8.1 [facility] Resume Specialist Comment on above: Performed By: #### L IPD, CBC, CMP #### [facility] [address] [place], [place] [id number] Sodium [Moles/Vol] 139 mmol/L Normal 135-146 [facility] Resume Specialist Comment on above: Performed By: #### L IPD, CBC, CMP #### [facility] [address] [place], [place] [id number] Urea nitrogen [Mass/Vol] 11 mg/dL Normal 7-25 [facility] Resume Specialist Comment on above: Performed By: #### L IPD, CBC, CMP #### [facility] [address] [place], [place] [id number] Lipid Panelon 08-07-2021 Cholesterol [Mass/Vol] 154 mg/dL Normal 125-200 [facility] Comment on above: Result Comment: Low risk < 200mg/dL Borderline risk 201-239 mg/dl High risk > or equal to 240 Performed By: #### L IPD, CBC, CMP #### [facility] [address] [place], [place] [id number] Cholesterol in HDL [Mass/Vol] 40 mg/dL Low >40 [facility] Special[facility] Comment on above: Result Comment: High Cardiovascular Risk HDL <40 mg/dL Low Cardiovascular Risk HDL > or equal to 60 mg/dl Performed By: #### L IPD, CBC, CMP #### [facility] [address] [place], [place] [id number] Cholesterol in LDL [Mass/Vol] 88 mg/dL Normal [facility] Comment on above: Result Comment: LDL ATP III CLASSIFICATION LDL less than 100 mg/dl Optimal LDL 100-129 mg/dl Near or above optimal LDL 130-159 Borderline high LDL 160-189 High LDL greater than 189 mg/dl Very High Performed By: #### L IPD, CBC, CMP #### [facility] [address] [place], [place] [id number] Cholesterol in VLDL [Mass/Vol] 26 mg/dL Normal [facility] Comment on above: Performed By: #### L IPD, CBC, CMP #### [facility] [address] [facility] [place] [id number] Cholesterol.total/Choles terol in HDL [Mass ratio] 4 {ratio} Normal [facility] Comment on above: Performed By: #### L IPD, CBC, CMP #### [facility] [address] [facility] [place] [place] [id number] Triglyceride [Mass/Vol] 129 mg/dL Normal 30-150 [facility] Comment on above: Result Comment: TRIG ATPIII CLASSIFICATIONS TRIG less than 150 mg/dl Normal TRIG 150-199 mg/dl Borderline High TRIG 200-500 mg/dl High TRIG greather than 500 mg/dl Very High Performed By: #### L IPD, CBC, CMP #### [facility] [address] [place], [place] [id number] NR MR L-SPINE WO/W CONTRASTo n 01-13-2019 NR MR L-SPINE WO/W CONTRAST Patient Name: LUÍS CALHOUN STUDY: MR L-SPINE WO/W CONTRAST; 01/13/2019 10:05 am INDICATION: Radiculopathy, lumbar region. History of laminectomy. Right leg pain and numbness. COMPARISON: None. ACCESSION NUMBER(S): [id number] ORDERING CLINICIAN: ADELITA HENRY TECHNIQUE: Multisequential MR [...] Electronically signed by: BJ MUNGUIA MD Normal [facility] XR LUMBAR SPINE (MIN 4 VIEWS )on 12-17-2018 XR LUMBAR SPINE (MIN 4 VIEWS) Radiology exam is complete. No Radiologist dictation. Please follow up with ordering provider. Final result Normal [facility] Radiology exam is complete. No Radiologist dictation. Please follow up with ordering provider. [facility] [place] [place] Established Visit (Otolaryng ology)on 03-02-2018 Established Visit (Otolaryngology) Chief ComplaintNew patient suspected cholesteatoma History of Present IllnessHere today for mastoid bowl cleaning and follow up. Denies any interval otologic complaints since last being seen. Recall: 37 year old male referred by Dr. Head. [place] he was a child in [place] had a chronically draining ear and underwent [...] assist you through your ENT care at [facility].Dr. Chicas is an Ear surgeon. This means that he specializes in taking care of patients with complex ear problems.Dr. Chicas's office number is [phone]. While you may see him at a satellite office, she has a team committed to help meet your healthcare needs at [facility]'s main campus. This number is the most direct way to communicate with the office.Audra is Dr. Padilla secretary to board of commissioners and she answers the office phone from [...] may include dieticians, social workers, speech therapists, erp manager, neurologist, and physical therapist. Dr. Chicas will provide these referrals as needed. Please let him know if you would like to request a specific referral.For your convenience, Dr. Chicas sees patients at several [facility] locations including [facility], [facility], and [facility]. While we try to make your [...] Mar 02 2018 2:05PM EST (Author) [facility] Initial Visit (Otolaryngolog y)on 09-29-2017 Initial Visit (Otolaryngology) Chief ComplaintNew patient suspected cholesteatoma History of Present Igfpbfv38 year old male referred by Dr. Head. When he was a child in [place] had a chronically draining ear and underwent [...] AM Vitals Vital Signs Recorded: 29Sep2017 11:23AMHeart Olyl76Hkgjofmf792Ulio azpvl29Yntwjz0 ft 2 biKoefeg431 lb BMI Auesfzsbqp85.65BSA Calculated2.59 Physical ExamCONSTITUTIONAL: No acute distressVOICE: No [...] EARTWICE DAILY FOR 10 DAYS Rx By: Juan Francisco, Maroun; Dispense: 10 Days ; #:1 X 7.5 [...] assist you through your ENT care at [facility].Dr. Chicas is an Ear surgeon. This means that he specializes in taking care of patients with complex ear problems.Dr. Chicas's office number is [phone]. While you may see him at a satellite office, she has a team committed to help meet your healthcare needs at [facility]'s main campus. This number is the most direct way to communicate with the office.Audra is Dr. Padilla secretary to board of commissioners and she answers the office phone from [...] may include dieticians, social workers, speech therapists, erp manager, neurologist, and physical therapist. Dr. Chicas will provide these referrals as needed. Please let him know if you would like to request a specific referral.For your convenience, Dr. Chicas sees patients at several [facility] locations including [facility], [facility], and [facility]. While we try to make your [...] ACTIVE -Retrospective By Protocol Authorization Ordered Normal [facility] Encounters Encounter Date Encounter Type Care Provider Facility Start: 03-02-2024 End: 03-02-2024 Orders Only Adelita Epperson MD Work Phone: [facility] Comment on above: Lumbar paraspinal mu scle spasm (Primary Dx); Lumbar radiculopathy Start: 02-10-2024 End: 02-11-2024 Refill Erin Jamil [employer] Work Phone: [facility] Comment on above: Obesity (BMI 30-39.9 ) Start: 01-05-2024 End: 01-05-2024 ambulatory Laura Luevano MD Facility:[facility] Start: 12-09-2023 End: 12-09-2023 ambulatory AL MARIN Not Available Start: 11-25-2023 End: 11-25-2023 ambulatory AL MARIN Not Available Start: 11-12-2023 End: 11-12-2023 ambulatory HANS LORD Not Available Start: 10-07-2023 End: 10-07-2023 ambulatory ADELITA EPPERSON Not Available Start: 09-11-2023 End: 09-11-2023 ambulatory AL MARIN Not Available Start: 09-03-2023 End: 09-03-2023 ambulatory Manjinder Lynn Jr Facility:[facility] Start: 09-03-2023 End: 09-03-2023 ambulatory MD Adelita Epperson Work Phone: [facility] Work Phone: Start: 09-03-2023 End: 09-03-2023 Departed Referred MD Adelita Epperson Work Phone: [facility] [address] Work Phone: Start: 07-14-2023 End: 07-14-2023 ambulatory ADELITA EPPERSON Not Available Start: 06-24-2023 End: 06-24-2023 ambulatory TONYA ESTRELLA Not Available Start: 06-03-2023 Telephone encounter Marcel Doherty Ap ling [employer] Work Phone: [facility] Start: 06-02-2023 [...] End: 04-10-2020 Patient encounter procedure Adelita Epperson [facility] Start: 12-17-2018 End: 12-20-2018 Patient encounter procedure ADELITA EPPERSON [facility] Start: 12-17-2018 End: 12-19-2018 Subsequent hospital visit by physician [facility] Comment on above: Low back pain, unspe cified back pain laterality, unspecified chronicity, with sciatica presence unspecified Start: 03-02-2018 Patient encounter procedure Dale Chicas Facility:[id number] Start: 09-29-2017 Patient encounter procedure Dale Chicas Facility:[id number] Procedures Date Procedure Procedure Detail Performing Clinician Start: 12-17-2018 Radex spine lumbosac ral minimum 4 views ADELITA ZHOU Start: 12-17-2018 Radex spine lumbosac ral minimum 4 views Adelita Henry Work Phone: Start: 09-29-2017 Follow-up visit Plan of Treatment Date Care Activity Detail Author Start: 07-12-2024 End: 07-12-2024 Patient encounter procedure 07/12/2024 8:45 AM EDT Office Visit [facility] [address] [place] [phone] Adelita Epperson MD [address] [place] [address] [facility] Start: 06-15-2024 End: 06-15-2024 Patient encounter procedure 06/15/2024 3:45 PM EST Office Visit [facility] [address] [facility] [place] [phone] Al Marin S, DO [address] [place] [address] [facility] Start: 04-05-2024 End: 04-05-2024 Patient encounter procedure 04/05/2024 8:15 AM EST Office Visit [facility] [address] [place] [phone] Adelita Epperson MD [address] [place] [address] [facility] Start: 03-11-2024 End: 03-11-2024 Patient encounter procedure 03/11/2024 3:15 PM EST Office Visit [facility] [address] [place] [phone] Al Marin, DO [address] [place] [address] [facility] Start: 03-02-2024 End: 03-02-2024 ambulatory 03/02/2024 10:30 AM EST Evaluation [facility] [address] [place] [phone] Antonio Solomon, PT [address] [place] [phone] [facility] Start: 12-28-2023 Influenza vaccination Influenza Vacc ine (#1) [facility] Start: 08-26-2023 End: 08-26-2023 Patient encounter procedure 08/26/2023 3:45 PM EDT Office Visit [facility] [address] [place] [phone] Al Marin, DO [address] [place] [address] [facility] Start: 07-14-2023 End: 07-14-2023 Patient encounter procedure 07/14/2023 8:45 AM EDT Office Visit [facility] [address] [place] [phone] Adelita Epperson MD [address] [place] [address] [facility] Start: 06-23-2023 End: 06-23-2023 Patient encounter procedure 06/23/2023 8:00 AM EST Office Visit [facility] [address] [facility] [address] [place] [phone] Marcel Haley, [employer] [address] [place] [address] [facility] Start: 06-16-2023 End: 06-16-2023 ambulatory 06/16/2023 4:15 PM EST Treatment [facility] [address] [place] [phone] Antonio Solomon, PT [address] [facility] [place] [address] [facility] Start: 06-09-2023 End: 06-09-2023 ambulatory 06/09/2023 4:30 PM EST Treatment [facility] [address] [place] [address] Antonio Solomon, PT [address] [place] [phone] [facility] Start: 06-04-2023 End: 06-04-2024 MR Lumbar spine WO contrast MR lumbar spine wo contrast Imaging Routine DDD (degenerative disc disease), lumbar Lumbar herniated disc Expected: 06/04/2023 (Approximate), Expires: 06/04/2024 [facility] Work Phone: Comment on above: Expected: 06/04/2023 (Approximate), Expires: 06/04/2024 Start: 12-27-2022 Influenza vaccination Influenza Vacc ine (#1) [facility] Start: 12-27-2018 Influenza vaccination Flu vaccine (# 1) [place] Start: 1999 DTaP/Tdap/Td vaccine (1 - Tdap) DTaP/Tdap/Td vaccine (1 - Tdap) [place] Start: 1995 HIV screen HIV screen [place], [place] Start: 1993 Varicella Vaccine (1 of 2 - 13+ 2-dose series) Varicella Vaccine (1 of 2 - 13+ 2-dose series) [place] Start: 1986 Pneumococcal 0-64 ye ars Vaccine (1 of 1 - PPSV23) Pneumococcal 0-64 years Vaccine (1 of 1 - PPSV23) [place] Payers Date Payer Category Payer Self-pay [id number] 2020 [facility] BC [id number] 2020 Unknown [id number] 1.13.693.2 .[id number] 2017 Private Health Insurance [id number] 2017 Private Health Insurance [employer] xxxxxxxxxx 2017-Present [phone] [address] [place] [address] xxxxxxxxxx [id number] .7.3.633310.315 1980 Unknown [id number] 2.16.840.1.585840.3.579.2 .356 1980 Unknown [id number] 2.16.840.1.977443.3.579.2 .356 1980 Unknown [id number] 2.16840.1.548892.3.579.2 .356 1980 Unknown [id number] 2.16.840.1.044309.3.579.2 .185 1980 Unknown [id number] 2.16.840.1.628120.3.579.2 .593 1980 Unknown [id number] 2.16.840.1.615323.3.579.2 .593 1980 Unknown [id number] 2.16.840.1.453596.3.579.2 .593 1980 Unknown [id number] 2.16.840.1.906232.3.579.2 .593 1980 Unknown [id number] 2.16.840.1.733990.3.579.2 .593 1980 Unknown [id number] 2.16.840.1.264284.3.579.2 .593 1980 Unknown [id number] 2.16.840.1.685463.3.579.2 .196 1980 Unknown [id number] 2.16.840.1.680208.3.579.2 .1258 1980 Unknown [id number] 2.16.840.1.063916.3.579.2 .1258 1980 Unknown [id number] 2.16.840.1.065348.3.579.2 .1258 1980 Unknown [id number] 2.16.840.1.010246.3.579.2 .1258 1980 Unknown [id number] 2.16.840.1.558784.3.579.2 .1258 1980 Unknown [id number] 2.16.840.1.013584.3.579.2 .1258 1980 Unknown [id number] 2.16.840.1.241036.3.579.2 .1258 1980 Unknown [id number] 2.16.840.1.255268.3.579.2 .1258 1980 Unknown [id number] 2.16.840.1.822869.3.579.2 .9 1980 Unknown [id number] 2.16.840.1.625287.3.579.2 .9 1980 Unknown [id number] 2.16.840.1.875779.3.579.2 .9 1980 Unknown [id number] 2.16.840.1.934125.3.579.2 .1258 1980 Unknown [id number] 2.16.840.1.153551.3.579.2 .1258 1980 Unknown [id number] 2.16.840.1.572675.3.579.2 .1258 1980 Unknown [id number] 2.16.840.1.765656.3.579.2 .9 1980 Unknown [id number] 2.16.840.1.934057.3.579.2 .9 1980 Unknown [id number] 2.16.840.1.889005.3.579.2 .9 1959 Unknown [id number] Unknown [id number] 2.16.840.1.780116.3.579.2 .531 Social History Date Type Detail Facility Start: 04-28-1993 End: 10-07-2023 Tobacco smoking status MIIS Current every day smoker [place] Start: 01-16-2018 End: 11-07-2022 Alcohol intake No [place] Sex Assigned At Not on file [place] Start: 1980 [facility] Start: 04-28-1993 History of tobacco use Cigarette Smo ker [facility] Start: 11-07-2022 End: 02-25-2023 Cigarettes smoked current (pack per day) - Reported 0.5 [facility] Start: 02-25-2023 End: 10-07-2023 Tobacco use and exposure Smokeless tobacco non-user [facility] Start: 05-05-2023 End: 12-09-2023 Alcohol intake Lifetime non-drinker (finding) [facility] Start: 11-06-2022 Alcohol Comment caffeine:Type: energy drink 3-- 16 0z cans per day [facility] Start: 10-10-2022 Gender identity Identifies as male gender (finding) [facility] Start: 10-10-2022 Sexual orientation Choose not to dis close [facility] Start: 07-14-2023 Alcohol Comment caffeine:Type: energy drink 1-- 16 0z can per day [facility] Goals Date Patient Goal Desired Activity /State Clinical Notes 10-04-2021 to 06-03-2023 Telephone Encounter - Nida Gross - 06/03/2023 2:47 PM ESTTelephone Encounter - Nida Gross - 06/03/2023 2:47 PM EST Note Date & Type Note Facility 06-03-2023 Telephone encount er Note Pt called back and would like to do MRI at [facility]. [facility] 06-03-2023 Miscellaneous Notes Formattin g of this note might be different from the original. Pt called back and would like to do MRI at [facility]. documented in this encounter [facility] 07-23-2022 Note PAIN MANAGEMENT CONS ULTATION CONSULTATION DATE: 07/23/2022 ADDENDUM: The dictation mentions denervation of the L4-5, L5-S1 facet joint under fluoroscopic guidance by using radiofrequency ablation on the left side. The dictation should read: Proceed with radiofrequency ablation of the L2-3, L4-5 levels under fluoroscopic guidance on the left side. [facility] 07-23-2022 Note PAIN MANAGEMENT CONS ULTATION CONSULTATION DATE: 07/23/2022 ADDENDUM: The dictation mentions denervation of the L4-5, L5-S1 facet joint under fluoroscopic guidance by using radiofrequency ablation on the left side. The dictation should read: Proceeded with radiofrequency ablation of the L2-3, L4-5 levels under fluoroscopic guidance on the left side. [facility] 07-23-2022 Note CONSULTATION CONSULTATION DATE: 07/23/2022 TO: Dr. Hill HISTORY: Patient returns today complaining of 5-7/10 [...] to proceed with the outlined plan. [facility] 03-28-2022 Note CONSULTATION CONSULTATION DATE: 03/28/2022 [...] consistent with his stretches and has a filler in workload at work. He reports 0/10 pain [...] in six months' time for re-evaluation. [facility] 01-03-2022 Note CONSULTATION CONSULTATION DATE: 01/03/2022 [...] three months' time, unless otherwise indicated. [facility] 10-04-2021 Note CONSULTATION CONSULTATION DATE: 10/04/2021 [...] gluconate 800 mg q.h.s. in addition to jpoz-sxp-ivzsppd ibuprofen 600 mg q.a.m. before work. Daily stretching and the use of heat were encouraged to aid with the spasms. We discussed about different vitamin regimens and the patient was willing to try. He will be followed up in the clinic in three months' time unless otherwise indicated. The patient agrees with the plan of care. [facility] Signed and Approved by: SEAN WELLS . 10/11/2021 16:03:00 [facility] Evaluation note Diagnosis DDD (degenerative disc disease), lumbar- Primary Degeneration of lumbar or lumbosacral intervertebral disc Lumbar herniated disc [facility]: Evaluation note* Diagnosis Obesity (BMI 30-39.9) documented in this encounter [facility]* Diagnosis Lumbar paraspinal muscle spasm- Primary Other symptoms referable to back Lumbar radiculopathy Thoracic or lumbosacral neuritis or radiculitis, unspecified documented [facility] this [facility] Diagnosis Lumbar paraspinal muscle spasm- Primary Other symptoms referable to back Lumbar radiculopathy Thoracic or lumbosacral neuritis or radiculitis, unspecified documented in this encounter [facility] HealthcareReason for visit Narrative* Rehabilitation - Outpatient (Routine) - Authorized Specialty Diagnoses / Procedures Referred By Selvin t Referred To Contact Physical Therapy Diagnoses Lumbar paraspinal muscle spasm Lumbar radiculopathy Procedures [place] OFFICE/OUTPATIENT CARE [facility] AT [facility] 60 MINUTES Adelita Epperson MD [address] [place] [address] Phone: tel: fax: Antonio Solomon, PT [address] [place] [address] Phone: tel: fax: Referral ID Status Reason Start Date Expiration Date Visits Requested Visits Authorized [id number] Authorized Consult and Treat 03/02/2024 08/29/2024 53 53 [facility] Summary Purpose Family History No Family History Records FoundNo Family History Records FoundNo Family History Records FoundNo Family History Records FoundNo Family History Records FoundNo Family History Records FoundNo Family History Records FoundNo Family History Records FoundNo Family History Records Found Advance Directives No Advanced Directives Records FoundDocuments on File Type Date 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 Advance Directives and Living Will Power of Wait Staff Advance Directive Response Recorded Date/ Time Advance Directives No December 8:43am Advance Directive Response Recorded Date/ Time Advance Directives No May 8th, 2024 8:44am Assessments Diagnosis Low back pain, unspecified [...] Procedures MR lumbar spine wo Marcel Schmidt, [employer] [address] [place] [address] Referral ID Status Reason Start Date Expiration Date V isits Requested Visits Authorized [id number] Pending Review 06/04/2023 12/01/2023 1 1 Additional Source Comments (unrecognized sect ion and content) No Status Records FoundNo Status Records FoundNo Status Records FoundNo Status Records FoundNo Status Records FoundNo Status Records FoundNo Status Records FoundNo Status Records FoundNo Status Records Found INFORMATION SOURCE (unrecogn ized section and content) DATE CREATED AUTHOR 04/05/2018 [facility] DATE CREATED AUTHOR AUTHOR'S ORGANIZ ATION 04/05/2018 [facility] DATE CREATED AUTHOR AUTHOR'S ORGANIZ ATION 12/20/2018 [facility] DATE CREATED AUTHOR AUTHOR'S ORGANIZ ATION 01/31/2019 [facility] [facility] DATE CREATED AUTHOR AUTHOR'S ORGANIZ ATION 08/08/2021 [facility] dical Specialist DATE CREATED AUTHOR AUTHOR'S ORGANIZ ATION 08/09/2022 [facility] DATE CREATED AUTHOR AUTHOR'S ORGANIZ ATION 09/04/2023 [facility] DATE CREATED AUTHOR AUTHOR'S ORGANIZ ATION 01/11/2024 [facility] DATE CREATED AUTHOR AUTHOR'S ORGANIZ ATION 03/03/2024 [facility] dical Specialists EPIC Care Teams (unrecognized sec tion and content) Service And Repair Supervisor Relationship Specialty Start Date End Date Adelita Epperson MD [address] [place] [id number] PCP - General Internal Medicine 11/06/22 Team Status: Active Member Role Status Dates Adelita Epperson MD Primary Care Provider Active Team Status: Inactive Member Role Status Dates Adelita Epperson MD Primary Care Provider Active St art: September 03, 2023 End: September 03, 2023 Manjinder Lynn Jr, Attending Provider Active S tart: September 03, 2023 End: September 03, 2023 Service And Repair Supervisor Relationship Specialty Start Date End Date Adelita Epperson MD [address] [place] [address] PCP - General Internal Medicine 11/06/22 Adelita Epperson MD [address] [place] [address] PCP - [facility] 06/27/23 Service And Repair Supervisor Relationship Specialty Start Date End Date Adelita Epperson MD [address] [place] [address] PCP - General Internal Medicine 11/06/22 Adelita Epperson MD [address] [place] [address] PCP [facility] 06/27/23 Service And Repair Supervisor Relationship Specialty Start Date End Date Adelita Epperson MD [address] [place] [address] PCP - General Internal Medicine 11/06/22 Adelita Epperson MD [address] [place] [address] PCP - [facility] 06/27/23 Goals (unrecognized section and content) [...] BE BASED ON THE PRIMARY CLINICAL RECORDS. [facility] [employer] [facility]. provides no warranty or guarantee of the accuracy or completeness of information in this document.
[2024-03-15 06:51] VITALS: BP 163/110; PULSE 107; TEMP 36.8; O2SAT 98
[2024-03-15 07:47] VITALS: BP 160/83; PULSE 86; O2SAT 97
[2024-03-15 07:48] VITALS: BP 145/78; PULSE 78; O2SAT 97
[2024-03-15] MEDS: 0.9 % SODIUM CHLORIDE 10 ML SYRINGE - SALINE FLUSH INJ (07:49)
[2024-03-15] MEDS: BUPIVACAINE HCL 0.25% PF 25 MG/10 ML VIAL INJ (07:49)
[2024-03-15] MEDS: IOHEXOL 240 MG/ML - 10 ML VIAL INJ (07:50)
[2024-03-15] MEDS: TRIAMCINOLONE ACETONIDE 40 MG/ML VIAL 80 MG INJ (07:50)
[2024-03-15] MEDS: LIDOCAINE HCL 2% 400 MG/20 ML MDV 5 ML INJ (07:50)
--- NOTE | 2024-03-15 07:53 | P.ON_ITS ---
Date of procedure: 03/15/24 Pre-op diagnosis: Pain due to lumbar stenosis with neurogenic claudication Post-op diagnosis: same as pre-op Procedure: Procedure: Left L4-5, L5-S1 transforaminal epidural steroid injection Medications: Bupivacaine 0.25% 2cc, lidocaine 2% 1cc, kenalog 80mg The patient was seen and examined in the preoperative holding area.? Informed consent was obtained and placed on the chart.? Patient was brought to the medical procedure unit and placed in the prone position where a timeout was completed verifying the correct patient, procedure site, position, and planned special equipment using sterile aseptic technique.? Under direct fluoroscopic visualization a 25-gauge Quincke tipped spinal needle was advanced to the designated neural foramen where contrast dye was injected to show adequate spread.? The needle was inserted at level left L4-5. There was no evidence of vascular or adverse uptake.? Epidural spread was appreciated.? The above- mentioned injectate was then placed in a 1.5 mL aliquot preceded by negative aspiration.? The needle was removed. The needle was inserted and the procedure repeated at level left L5-S1.? The surgery site was covered.? Patient was taken to the postprocedural recovery area and monitored for an appropriate length of time before found suitable for discharge in the accompaniment of a responsible adult. Anesthesia: Local Surgeon: Laura Luevano Pathology: none sent Condition: stable Disposition: no change
== END 2024-03-15 07:55 | disposition home or self-care (01) ==
LOC: SURGOUT 06:38
PROVIDERS: PCP Internal Medicine; Visit Provider Anesthesiology
DX: M48.062 Spinal stenosis, lumbar region with neurogenic claudication (principal)
CPT/HCPCS: 64483; 64484; J0665; J3301; Q9966

== ENCOUNTER 2024-03-24 08:36 | Outpatient (OUT) | payer BC, SELFPAY ==
--- OUTSIDE RECORDS SUMMARY | 2024-03-24 08:53 | XMS_ITS | CCD ---
Author Organization [facility] Care Team Providers Care Agricultural Engineer Name Role Phone Jennifer Muller Unavailable Unavailable [...] PHILIPPE, DR UREÑA Primary Care Unavailable RUSSELL .SENA Unavailable MEGHAN ., DR BERNARDO Tate Admitting Unavailable MEGHAN ., DR BERNARDO Tate Attending Unavailable PHILIPPE, DR UREÑA Primary Care Unavailable PHILIPPE, DR UREÑA Consulting Unavailable Philippe CID, Adelita Whitaker Primary Care Provider [phone] Manjinder Lynn Jr Attending Unavailable Manjinder Lynn Jr Admitting Unavailable Adelita Epperson Primary Care Unavailable MD Adelita Epperson Primary Care Provider DO Manjinder Lynn Jr Attending Provider [phone] Adelita Epperson MD Unavailable APLING, LAURIE Doherty Attending Unavailable PHILIPPE, ADELITA Whitaker Referring Unavailable APLING, LAURIE Doherty Referring Unavailable SURJIT, ANTONIO Doherty Attending Unavailable APLING, LAURIE Doherty Referring Unavailable SURJIT, ANTONIO Doherty Attending Unavailable APLING, LAURIE Doherty Referring Unavailable SURJIT, ANTONIO Doherty Attending Unavailable APLING, LAURIE Doherty Referring Unavailable SURJIT, ANTONIO Doherty Attending Unavailable APLING, LAURIE Doherty Referring Unavailable SURJIT, ANTONIO Doherty Attending Unavailable APLING, LAURIE Doherty Referring Unavailable SURJIT, ANTONIO Doherty Attending Unavailable APLING, LAURIE Doherty Referring Unavailable SURJIT, ANTONIO Doherty Attending Unavailable APLING, LAURIE Doherty Referring Unavailable SAMEER, TONYA Monroe Attending Unavailable PHILIPPE, ADELITA Whitaker Attending Unavailable TOMAS, AL Tate Attending Unavailable PHILIPPE, ADELITA Whitaker Attending Unavailable DIDION, HANS Whitkaer Attending Unavailable BILIONELENTHOMAS, AL Tate Attending Unavailable BILIONELENTHOMAS, AL Tate Attending Unavailable SURJIT, ANTONIO Doherty Attending Unavailable PHILIPPE, ADELITA Whitaker Referring Unavailable Chloé CID, Laura Gutierrez Attending Unavailable Chloé CID, Laura Gutierrez Attending [...] (4 sources) Sympathomimetic Amine Anorectic Start: End: 024 take 1 tablet by mouth before mealtime [...] 09-03-2023 ALT [Catalytic activity/Vol] 29 U/L 7-52 [facility] Albumin [Mass/volume] in Ser um or Plasma by Bromocresol green (BCG) dye binding methoOrdered By: Manjinder Lynn on 09-03-2023 Albumin BCG dye [Mass/Vol] 4.6 g/dL 3.5-5.7 [facility] Alkaline phosphatase [Enzyma tic activity/volume] in Serum or PlasmaOrdered By: Manjinder Lynn on 09-03-2023 ALP [Catalytic activity/Vol] 75 U/L 34-104 [facility] Aspartate aminotransferase [ Enzymatic activity/volume] in Serum or PlasmaOrdered By: Manjinder Lynn on 09-03-2023 AST [Catalytic activity/Vol] 20 U/L 13-39 [facility] Basophils Auto (Bld) [#/Vol] Ordered By: Manjinder Lynn on 09-03-2023 Basophils (Bld) [#/Vol] 0.1 10*3/uL 0.0-0.2 [facility] Basophils/100 WBC Auto (Bld) Ordered By: Manjinder Lynn on 09-03-2023 Basophils/100 WBC (Bld) 1.1 % . [facility] Bilirubin.total [Mass/volume ] in Serum or PlasmaOrdered By: Manjinder Lynn on 09-03-2023 Bilirubin [Mass/Vol] 1.3 mg/dL 0.3-1.0 [facility] Comment on above: Samples from patient s who have taken Naproxen have shown spurious elevation in Total Bilirubin levels. A metabolite of Naproxen, O-desmethylnaproxen, has been shown to interfere with the Tracy-María method for measuring Total Bilirubin. Calcium [Mass/volume] in Ser um or PlasmaOrdered By: Manjinder Lynn on 09-03-2023 Calcium [Mass/Vol] 9.5 mg/dL 8.6-10.3 [facility] Carbon dioxide, total [Moles /volume] in Serum or PlasmaOrdered By: Manjinder Lynn on 09-03-2023 CO2 [Moles/Vol] 27.6 mmol/L 21.0-31.0 [facility] Chloride [Moles/volume] in S cheryl or PlasmaOrdered By: Manjinder Lynn on 09-03-2023 Chloride [Moles/Vol] 103 mmol/L 98-107 [facility] Complete Blood Count no refl exon 09-03-2023 Basophils (Bld) [#/Vol] 0.1 10*3/uL Normal 0.0-0.2 [facility] Comment on above: Result Comment: PERF ORMED BY: [place] [address] PATHOLOGIST SECURITY ADVISOR JOÃO YATES M.D. Performed By: #### C MP, [facility] CBC #### [address] Basophils/100 WBC (Bld) 1.1 % Normal . T [facility] Comment on above: Performed By: #### C MP, [facility] CBC #### [place] [address] [place] Eosinophils (Bld) [#/Vol] 0.4 10*3/uL Normal 0.0-0.45 [facility] Comment on above: Performed By: #### C MP, [facility] CBC #### [address] Eosinophils/100 WBC (Bld) 4.9 % Normal . [facility] Comment on above: Performed By: #### C MP, [facility] CBC #### [address] Erythrocyte distribution width (RBC) [Ratio] 13.4 % Normal 12.0-14.8 [facility] Comment on above: Performed By: #### C MP, [facility] CBC #### [address] Hematocrit (Bld) [Volume fraction] 43.4 % Normal 38.8-50.0 [facility] Comment on above: Performed By: #### C MP, [facility] CBC #### [address] Hemoglobin (Bld) [Mass/Vol] 15.1 g/dL Normal 13.0-17.0 [facility] Comment on above: Performed By: #### C MP, [facility] CBC #### [place] [address] [place] Lymphocytes (Bld) [#/Vol] 3.5 10*3/uL Normal 1.00-4.8 [facility] Comment on above: Performed By: #### C MP, [facility] CBC #### [address] Lymphocytes/100 WBC (Bld) 38.0 % Normal . [facility] Comment on above: Performed By: #### C MP, [facility] CBC #### [address] MCH (RBC) [Entitic mass] 30.6 pg Normal 27.5-35.2 [facility] Comment on above: Performed By: #### C MP, [facility] CBC #### [address] MCV (RBC) [Entitic vol] 88.2 fL Normal 83.5-101 T [facility] Comment on above: Performed By: #### C MP, [facility] CBC #### [address] Mean Corpuscular HGB Conc 34.7 g/dL Normal 32.5-35.6 [facility] Comment on above: Performed By: #### C MP, [facility] CBC #### [place] [address] [place] Monocytes (Bld) [#/Vol] 0.7 10*3/uL Normal 0.0-0.8 [facility] Comment on above: Performed By: #### C MP, [facility] CBC #### [place] [address] [place] Monocytes/100 WBC (Bld) 7.1 % Normal . T [facility] Comment on above: Performed By: #### C MP, [facility] CBC #### [place] [address] [place] Neutrophils (Bld) [#/Vol] 4.5 10*3/uL Normal 1.8-7.7 [facility] Comment on above: Performed By: #### C MP, [facility] CBC #### [place] [address] [place] Neutrophils/100 WBC (Bld) 48.9 % Normal . [facility] Comment on above: Performed By: #### C MP, [facility] CBC #### [address] NRBC% 0.2 /100{WBC} Normal 0-0.5 [facility] Comment on above: Performed By: #### C MP, [facility] CBC #### [address] Platelet mean volume (Bld) [Entitic vol] 9.6 fL Normal 6.6-10.1 [facility] Comment on above: Performed By: #### C MP, [facility] CBC #### [address] Platelets (Bld) [#/Vol] 230 10*3/uL Normal 150-450 [facility] Comment on above: Performed By: #### C MP, [facility] #### [address] RBC (Bld) [#/Vol] 4.92 10*6/uL Normal 3.90-5.60 [facility] Comment on above: Performed By: #### C MP, [facility] CBC #### [address] WBC (Bld) [#/Vol] 9.2 10*3/uL Normal 4.1-10.[address] [facility] Comment on above: Performed By: #### C MP, [facility] CBC #### [address] Comprehensive Metabolic Pane serafin 09-03-2023 Albumin [Mass/Vol] 4.6 g/dL Normal 3.5-5.[address] [facility] Comment on above: Performed By: #### C MP, [facility] CBC #### [address] Albumin/Globulin [Mass ratio] 2.1 {ratio} Normal [facility] Comment on above: Performed By: #### C MP, [facility] CBC #### [address] ALP [Catalytic activity/Vol] 75 U/L Normal 34-104 [facility] Comment on above: Result Comment: PERF ORMED BY: [place] [address] PATHOLOGIST SECURITY ADVISOR JOÃO YATES M.D. Performed By: #### C MP, [facility] CBC #### [address] ALT [Catalytic activity/Vol] 29 U/L Normal 7-52 [facility] Comment on above: Performed By: #### C MP, [facility] CBC #### [address] Anion gap [Moles/Vol] 11.4 mmol/L Normal 6.0-15.0 Th e [facility] Comment on above: Performed By: #### C MP, [facility] CBC #### [address] AST [Catalytic activity/Vol] 20 U/L Normal 13-39 [facility] Comment on above: Performed By: #### C MP, [facility] CBC #### [address] Bilirubin [Mass/Vol] 1.3 mg/dL High 0.3-1.0 [facility] Comment on above: Result Comment: Samp les from patients who have taken Naproxen have shown spurious elevation in Total Bilirubin levels. A metabolite of Naproxen, O-desmethylnaproxen, has been shown to interfere with the Jendrassik-Grof method for measuring Total Bilirubin. Performed By: #### C MP, [facility] CBC #### [place] [address] [place] Calcium [Mass/Vol] 9.5 mg/dL Normal 8.6-10.[address] [facility] Comment on above: Performed By: #### C MP, [facility] CBC #### [place] [address] [place] Chloride [Moles/Vol] 103 mmol/L Normal 98-107 [facility] Comment on above: Performed By: #### C MP, [facility] CBC #### [facility] [address] [place] [address] [place] CO2 [Moles/Vol] 27.6 mmol/L Normal 21.0-31.0 The [facility] Comment on above: Performed By: #### C MP, [facility] CBC #### [address] Creatinine [Mass/Vol] 1.22 mg/dL Normal 0.70-1.30 [facility] Comment on above: Performed By: #### C LIANA, [facility] CBC #### [place] [address] [place] GFR/1.73 sq M.predicted MDRD (S/P/Bld) [Vol rate/Area] mL/min/{1.73_m2} Normal [facility] Comment on above: Performed By: #### C LIANA, [facility] CBC #### [place] [address] [place] Globulin (S) [Mass/Vol] 2.2 g/dL Normal T he [facility] Comment on above: Performed By: #### C LIANA, [facility] CBC #### [address] Glucose [Mass/Vol] 117 mg/dL High 70-[address] [facility] Comment on above: Result Comment: [place] Glucose Reference Range is dependent on time and content of last meal. Glucose of more than 200 mg/dL in a nonstressed, ambulatory subject supports the diagnosis of Diabetes Mellitus. ADA recommended reference range Performed By: #### C MP, [facility] CBC #### [place] [address] [place] Potassium [Moles/Vol] 4.0 mmol/L Normal 3.5-5.1 [facility] Comment on above: Performed By: #### C MP, [facility] CBC #### [address] Protein [Mass/Vol] 6.8 g/dL Normal 6.4-8.[address] [facility] Comment on above: Performed By: #### C LIANA, [facility] CBC #### [facility] [address] Sodium [Moles/Vol] 138 mmol/L Normal 136-[address] [facility] Comment on above: Performed By: #### C MP, [facility] CBC #### [facility] [address] [place] [address] [place] Urea nitrogen [Mass/Vol] 11 mg/dL Normal 7-25 [facility] Comment on above: Performed By: #### C MP, [facility] CBC #### [facility] [address] Creatinine [Mass/volume] in Serum or PlasmaOrdered By: Manjinder Lynn on 09-03-2023 Creatinine [Mass/Vol] 1.22 mg/dL 0.70-1.30 [facility] Eosinophils Auto (Bld) [#/Vo l]Ordered By: Manjinder Lynn on 09-03-2023 Eosinophils (Bld) [#/Vol] 0.4 10*3/uL 0.0-0.45 [facility] Eosinophils/100 WBC Auto (Bl d)Ordered By: Manjinder Lynn on 09-03-2023 Eosinophils/100 WBC (Bld) 4.9 % . [facility] Erythrocyte distribution wid th Auto (RBC) [Ratio]Ordered By: Manjinder Lynn on 09-03-2023 Erythrocyte distribution width (RBC) [Ratio] 13.4 % 12.0-14.8 [facility] Globulin Calc (S) [Mass/Vol] Ordered By: Manjinder Lynn on 09-03-2023 Globulin (S) [Mass/Vol] 2.2 g/dL [facility] Glucose [Mass/volume] in Ser um or PlasmaOrdered By: Manjinder Lynn on 09-03-2023 Glucose [Mass/Vol] 117 mg/dL 70-100 [facility] Comment on above: ADA recommended refe rence rangeRandom Glucose Reference Range is dependent on time and content of last meal. Glucose of more than 200 mg/dL in a nonstressed, ambulatory subject supports the diagnosis of Diabetes Mellitus. Hematocrit Auto (Bld) [Volum e fraction]Ordered By: Manjinder Lynn on 09-03-2023 Hematocrit (Bld) [Volume fraction] 43.4 % 38.8-50.0 [facility] Hemoglobin [Mass/volume] in BloodOrdered By: Manjinder Lynn on 09-03-2023 Hemoglobin (Bld) [Mass/Vol] 15.1 g/dL 13.0-17.0 [facility] Leukocytes [#/volume] correc padma for nucleated erythrocytes in Blood by Automated counOrdered By: Manjinder Lynn on 09-03-2023 WBC corrected for nucl RBC Auto (Bld) [#/Vol] 9.2 10*3/uL 4.1-10.5 [facility] Lymphocytes Auto (Bld) [#/Vo l]Ordered By: Manjinder Lynn on 09-03-2023 Lymphocytes (Bld) [#/Vol] 3.5 10*3/uL 1.00-4.8 [facility] Lymphocytes/100 WBC Auto (Bl d)Ordered By: Manjinder Lynn on 09-03-2023 Lymphocytes/100 WBC (Bld) 38.0 % . [facility] MCH Auto (RBC) [Entitic mass ]Ordered By: Manjinder Lynn on 09-03-2023 MCH (RBC) [Entitic mass] 30.6 pg 27.5-35.2 [facility] MCHC Auto (RBC) [Mass/Vol]Or dered By: Manjinder Lynn on 09-03-2023 MCHC (RBC) [Mass/Vol] 34.7 g/dL 32.5-35.6 [facility] MCV Auto (RBC) [Entitic vol] Ordered By: Manjinder Lynn on 09-03-2023 MCV (RBC) [Entitic vol] 88.2 fL 83.5-101 [facility] Monocytes Auto (Bld) [#/Vol] Ordered By: Manjinder Lynn on 09-03-2023 Monocytes (Bld) [#/Vol] 0.7 10*3/uL 0.0-0.8 [facility] Monocytes/100 WBC Auto (Bld) Ordered By: Manjinder Lynn on 09-03-2023 Monocytes/100 WBC (Bld) 7.1 % . [facility] Neutrophils Auto (Bld) [#/Vo l]Ordered By: Manjinder Lynn on 09-03-2023 Neutrophils (Bld) [#/Vol] 4.5 10*3/uL 1.8-7.7 [facility] Neutrophils/100 WBC Auto (Bl d)Ordered By: Manjinder Lynn on 09-03-2023 Neutrophils/100 WBC (Bld) 48.9 % . [facility] No Panel InformationOrdered By: Manjinder Lynn on 09-03-2023 Estimated GFR (CKD-EPI) > 60.0 mL/Min [facility] Creatinine Clearance (Chem N/A [facility] Nucleated erythrocytes [Pres ence] in Blood by Automated countOrdered By: Manjinder Lynn on 09-03-2023 Nucleated RBC Auto Ql (Bld) 0.2 /100{WBC} 0-0.5 [facility] Platelet mean volume Auto (B ld) [Entitic vol]Ordered By: Manjinder Lynn on 09-03-2023 Platelet mean volume (Bld) [Entitic vol] 9.6 fL 6.6-10.1 [facility] Platelets Auto (Bld) [#/Vol] Ordered By: Manjinder Lynn on 09-03-2023 Platelets (Bld) [#/Vol] 230 10*3/uL 150-450 [facility] Potassium [Moles/volume] in Serum or PlasmaOrdered By: Manjinder Lynn on 09-03-2023 Potassium [Moles/Vol] 4.0 mmol/L 3.5-5.1 [facility] Protein [Mass/volume] in Ser um or PlasmaOrdered By: Manjinder Lynn on 09-03-2023 Protein [Mass/Vol] 6.8 g/dL 6.4-8.9 [facility] RBC Auto (Bld) [#/Vol]Ordere d By: Manjinder Lynn on 09-03-2023 RBC (Bld) [#/Vol] 4.92 10*6/uL 3.90-5.60 [facility] Serum or plasma albumin/glob ulin mass ratioOrdered By: Manjinder Lynn on 09-03-2023 Albumin/Globulin [Mass ratio] 2.1 {ratio} [facility] Serum or plasma anion gap de terminationOrdered By: Manjinder Lynn on 09-03-2023 Anion gap [Moles/Vol] 11.4 mmol/L 6.0-15.0 [facility] Sodium [Moles/volume] in Ser um or PlasmaOrdered By: Manjinder Lynn on 09-03-2023 Sodium [Moles/Vol] 138 mmol/L 136-145 [facility] Urea nitrogen [Mass/volume] in Serum or PlasmaOrdered By: Manjinder Lynn on 09-03-2023 Urea nitrogen [Mass/Vol] 11 mg/dL 7-25 [facility] WBC Auto (Bld) [#/Vol]Ordere d By: Manjinder Lynn on 09-03-2023 WBC (Bld) [#/Vol] 9.2 10*3/uL 4.1-10.5 [facility] XR chest 1Von 09-03-2023 XR chest 1V [place] [address] XRay Report Signed Patient: Cas Calhoun MR#: [id number] : 1980 Acct:[id number] Age/Sex: 43 / M ADM Date: 09/03/23 Loc: [place] Room: Type: [facility] Attending Dr: Manjinder Lynn Jr, DO [...] Pelon Salazar M.D.09/03/2023 1:17 PM Dictation Location: [place] [address] Transcribed By: [facility] 09/03/23 1317 Dictated By: Pelon Salazar DO 09/03/23 1317 Signed By: 09/03/23 1317 Normal [facility] Complete Blood Counton 08-07 Erythrocyte distribution width (RBC) [Ratio] 13.0 % Normal 11.0-15.0 [facility] Specialist Comment on above: Performed By: #### L IPD, CBC, CMP #### [facility] [address] [place], [place] [id number] Hematocrit (Bld) [Volume fraction] 46.2 % Normal 38.5-50.0 [facility] Specialist Comment on above: Performed By: #### L IPD, CBC, CMP #### [facility] [address] [place], [place] [id number] Hemoglobin (Bld) [Mass/Vol] 15.6 g/dL Normal 13.0-17.1 [facility] Specialist Comment on above: Performed By: #### L IPD, CBC, CMP #### [facility] [address] [place], [place] [id number] MCH (RBC) [Entitic mass] 29.8 pg Normal 27.0-33.0 [facility] Specialist Comment on above: Performed By: #### L IPD, CBC, CMP #### [facility] [address] [place], [place] [id number] MCHC (RBC) [Mass/Vol] 33.8 g/dL Normal 32.0-36.0 [facility] Comment on above: Performed By: #### L IPD, CBC, CMP #### [facility] [address] [place], [place] [id number] MCV (RBC) [Entitic vol] 88 fL Normal 80-[address] [facility] Comment on above: Performed By: #### L IPD, CBC, CMP #### [facility] [address] [place], [place] [id number] Platelet mean volume (Bld) [Entitic vol] 11.20 fL Normal 7.50-12.50 [facility] Specialist Comment on above: Performed By: #### L IPD, CBC, CMP #### [facility] [address] [place], [place] [id number] Platelets (Bld) [#/Vol] 231 10*3/uL Normal 140-400 [facility] Specialist Comment on above: Performed By: #### L IPD, CBC, CMP #### [facility] [address] [place], [place] [id number] RBC (Bld) [#/Vol] 5.24 10*6/uL Normal 4.20-5.80 [facility] Specialist Comment on above: Performed By: #### L IPD, CBC, CMP #### [facility] [address] [place], [place] [id number] RDW-SD 42.1 fL Normal 37.0-50.0 [facility] Specialist Comment on above: Performed By: #### L IPD, CBC, CMP #### [facility] [address] [place], [place] [id number] WBC (Bld) [#/Vol] 9.2 10*3/uL Normal 3.8-11.0 [facility] [employer] [facility] Comment on above: Performed By: #### L IPD, CBC, CMP #### [facility] [address] [place], [place] [id number] Comprehensive Metabolic Pane [facility] 08-07-2021 Albumin [Mass/Vol] 4.7 g/dL Normal 3.6-5.1 [facility] [employer] [facility] Comment on above: Performed By: #### L IPD, CBC, CMP #### [facility] [address] [place], [place] [id number] Albumin/Globulin [Mass ratio] 2.4 {ratio} Normal 1.0-2.5 [facility] Specialist Comment on above: Performed By: #### L IPD, CBC, CMP #### [facility] [address] [place], [place] [id number] ALP [Catalytic activity/Vol] 76 U/L Normal 40-129 [facility] [employer] [facility] Comment on above: Performed By: #### L IPD, CBC, CMP #### [facility] [address] [place], [place] [id number] ALT [Catalytic activity/Vol] 52 U/L High 9-46 [facility] [facility] Comment on above: Result Comment: 03/28 Female reference range changed. Performed By: #### L IPD, CBC, CMP #### [facility] [address] [place], [place] [id number] Anion gap [Moles/Vol] 18 mmol/L Normal 12-20 [facility] Comment on above: Result Comment: Kylee ctive 05/03/2019 reference range changed. Performed By: #### L IPD, CBC, CMP #### [facility] [address] [place], [place] [id number] AST [Catalytic activity/Vol] 36 U/L Normal 10-40 [facility] Comment on above: Performed By: #### L IPD, CBC, CMP #### [facility] [address] [place], [place] [id number] Bilirubin [Mass/Vol] 1.27 mg/dL High 0.30-1.20 [facility] Comment on above: Performed By: #### L IPD, CBC, CMP #### [facility] [address] [place], [place] [id number] BUN/CREA 10 Ratio Normal 6-22 [facility] Comment on above: Performed By: #### L IPD, CBC, CMP #### [facility] [address] [place], [place] [id number] Calcium [Mass/Vol] 9.6 mg/dL Normal 8.6-10.2 [facility] Comment on above: Performed By: #### L IPD, CBC, CMP #### [facility] [address] [place], [place] [id number] Chloride [Moles/Vol] 104 mmol/L Normal 98-107 [facility] Comment on above: Performed By: #### L IPD, CBC, CMP #### [facility] [address] [place], [place] [id number] CO2 [Moles/Vol] 22 mmol/L Normal 20-31 [facility] Comment on above: Performed By: #### L IPD, CBC, CMP #### [facility] [address] [place], [place] [id number] Creatinine [Mass/Vol] 1.0 mg/dL Normal 0.7-1.4 [facility] Comment on above: Performed By: #### L IPD, CBC, CMP #### [facility] [address] [place], [place] [id number] eGFRAA 96 mL/min/1.73m2 Normal >60 [facility] Specialist Comment on above: Performed By: #### L IPD, CBC, CMP #### [facility] [address] [place], [place] [id number] eGFRNAA 80 mL/min/1.73m2 Normal >60 [facility] Specialist Comment on above: Performed By: #### L IPD, CBC, CMP #### [facility] [address] [place], [place] [id number] Globulin (S) [Mass/Vol] 2.0 g/dL Normal 1.9-3.7 [facility] Specialist Comment on above: Performed By: #### L IPD, CBC, CMP #### [facility] [address] [place], [place] [id number] Glucose [Mass/Vol] 76 mg/dL Normal 65-99 [facility] [facility] Comment on above: Result Comment: For FASTING Glucose --- ADA reference ranges: Normal 65-99 mg/dl Prediabetes 100-125 Diabetes >/= 126 Performed By: #### L IPD, CBC, CMP #### [facility] [address] [place], [place] [id number] Potassium [Moles/Vol] 4.7 mmol/L Normal 3.5-5.5 [facility] Specialist Comment on above: Result Comment: Spec imen is hemolyzed. Results may be affected. Performed By: #### L IPD, CBC, CMP #### [facility] [address] [place], [place] [id number] Protein [Mass/Vol] 6.7 g/dL Normal 6.1-8.1 [facility] [place] [employer] [facility] Comment on above: Performed By: #### L IPD, CBC, CMP #### [facility] [address] [place], [place] [id number] Sodium [Moles/Vol] 139 mmol/L Normal 135-146 [facility] [facility] [facility] Comment on above: Performed By: #### L IPD, CBC, CMP #### [facility] [address], [place] [id number] Urea nitrogen [Mass/Vol] 11 mg/dL Normal 7-25 [facility] Comment on above: Performed By: #### L IPD, CBC, CMP #### [facility] [address], [place] [id number] Lipid Panelon 08-07-2021 Cholesterol [Mass/Vol] 154 mg/dL Normal 125-200 [facility] Comment on above: Result Comment: Low risk < 200mg/dL Borderline risk 201-239 mg/dl High risk > or equal to 240 Performed By: #### L IPD, CBC, CMP #### [facility] [address], [place] [id number] Cholesterol in HDL [Mass/Vol] 40 mg/dL Low >40 [facility] Comment on above: Result Comment: High Cardiovascular Risk HDL <40 mg/dL Low Cardiovascular Risk HDL > or equal to 60 mg/dl Performed By: #### L IPD, CBC, CMP #### [facility] [address], [place] [id number] Cholesterol in LDL [Mass/Vol] 88 mg/dL Normal [facility] Comment on above: Result Comment: LDL ATP III CLASSIFICATION LDL less than 100 mg/dl Optimal LDL 100-129 mg/dl Near or above optimal LDL 130-159 Borderline high LDL 160-189 High LDL greater than 189 mg/dl Very High Performed By: #### L IPD, CBC, CMP #### [facility] [address], [place] [id number] Cholesterol in VLDL [Mass/Vol] 26 mg/dL Normal [facility] Comment on above: Performed By: #### L IPD, CBC, CMP #### [facility] [address], [place] [id number] Cholesterol.total/Choles terol in HDL [Mass ratio] 4 {ratio} Normal [facility] Comment on above: Performed By: #### L IPD, CBC, CMP #### [facility] [address], [place] [id number] Triglyceride [Mass/Vol] 129 mg/dL Normal 30-150 [facility] Comment on above: Result Comment: TRIG ATPIII CLASSIFICATIONS TRIG less than 150 mg/dl Normal TRIG 150-199 mg/dl Borderline High TRIG 200-500 mg/dl High TRIG greather than 500 mg/dl Very High Performed By: #### L IPD, CBC, CMP #### [facility] [address], [place] [id number] NR MR L-SPINE WO/W CONTRASTo n 01-13-2019 NR MR L-SPINE WO/W CONTRAST Patient Name: CAS CALHOUN STUDY: MR L-SPINE WO/W CONTRAST; 01/13/2019 10:05 am INDICATION: Radiculopathy, lumbar region. History of laminectomy. Right leg pain and numbness. COMPARISON: None. ACCESSION NUMBER(S): [id number] ORDERING CLINICIAN: ADELITA HENRY TECHNIQUE: Multisequential MR [...] Electronically signed by: BJ MUNGUIA MD Normal [facility] XR LUMBAR SPINE (MIN 4 VIEWS )on 12-17-2018 XR LUMBAR SPINE (MIN 4 VIEWS) Radiology exam is complete. No Radiologist dictation. Please follow up with ordering provider. Final result Normal [facility] Radiology exam is complete. No Radiologist dictation. Please follow up with ordering provider. [facility], [place] Established Visit (Otolaryng ology)on 03-02-2018 Established Visit (Otolaryngology) Chief ComplaintNew patient suspected cholesteatoma History of Present IllnessHere today for mastoid bowl cleaning and follow up. Denies any interval otologic complaints since last being seen. Recall: 37 year old male referred by Dr. Head. [place] he was a child in [place] had a chronically draining ear and underwent [...] assist you through your ENT care at [facility].Dr. Chicas is an Ear surgeon. This means that he specializes in taking care of patients with complex ear problems.Dr. Chicas's office number is [phone]. While you may see him at a satellite office, she has a team committed to help meet your healthcare needs at [facility]'s main campus. This number is the most direct way to communicate with the office.Audra is Dr. Padilla city secretary and she answers the office phone [...] may include dieticians, social workers, speech therapists, practicing md anesthesiologist, neurologist, and physical therapist. Dr. Chicas will provide these referrals as needed. Please let him know if you would like to request a specific referral.For your convenience, Dr. Chicas sees patients at several [facility] locations including [facility], [facility] and [facility]. While we try to make your [...] ComplaintNew patient suspected cholesteatoma History of Present Mrugkku86 year old male referred by Dr. Head. When he was a child in [place] had a chronically draining ear and underwent [...] AM Vitals Vital Signs Recorded: 29Sep2017 11:23AMHeart Rcoi23Dwykyrzw532Ocul nrupa39Nonmna9 ft 2 icHducdl648 lb BMI Wnkhcagbvt29.65BSA Calculated2.59 Physical ExamCONSTITUTIONAL: No acute distressVOICE: No [...] assist you through your ENT care at [facility].Dr. Chicas is an Ear surgeon. This means that he specializes in taking care of patients with complex ear problems.Dr. Chicas's office number is [phone]. While you may see him at a satellite office, she has a team committed to help meet your healthcare needs at [facility]'s main campus. This number is the most direct way to communicate with the office.Audra is Dr. Padilla city secretary and she answers the office phone [...] may include dieticians, social workers, speech therapists, practicing md anesthesiologist, neurologist, and physical therapist. Dr. Chicas will provide these referrals as needed. Please let him know if you would like to request a specific referral.For your convenience, Dr. Chicas sees patients at several [facility] locations including [facility], [facility], and [facility]. While we try to make your [...] ACTIVE -Retrospective By Protocol Authorization Ordered [facility] Encounters Encounter Date Encounter Type Care Provider Facility Start: 03-15-2024 End: 03-15-2024 ambulatory [facility] Start: 03-02-2024 End: 03-02-2024 Orders Only Adelita Epperson MD Work Phone: [facility] Comment on above: Lumbar paraspinal mu scle spasm (Primary Dx); Lumbar radiculopathy Start: 02-10-2024 End: 02-11-2024 Refill Erin Jamil PHYSICIAN OFFICE SPECIALIST Work Phone: [facility] Comment on above: Obesity (BMI 30-39.9 ) Start: 01-05-2024 End: 01-05-2024 ambulatory Laura Luevano MD Facility: [facility] Start: 12-09-2023 End: 12-09-2023 ambulatory AL MARIN Not Available Start: 11-25-2023 End: 11-25-2023 ambulatory AL MARIN Not Available Start: 11-12-2023 End: 11-12-2023 ambulatory HANS LORD Not Available Start: 10-07-2023 End: 10-07-2023 ambulatory ADELITA EPPERSON Not Available Start: 09-11-2023 End: 09-11-2023 ambulatory AL Bebeto MARIN Not Available Start: 09-03-2023 End: 09-03-2023 ambulatory Manjinder Lynn Jr Facility:[facility] Start: 09-03-2023 End: 09-03-2023 ambulatory MD Adelita Epperson Work Phone: [facility] Work Phone: Start: 09-03-2023 End: 09-03-2023 Departed Referred MD Adelita Epperson Work Phone: [facility] [address] Work Phone: Start: 07-14-2023 End: 07-14-2023 ambulatory ADELITA EPPERSON Not Available Start: 06-24-2023 End: 06-24-2023 ambulatory TONYA ESTRELLA Not Available Start: 06-03-2023 Telephone encounter Laurie cameron PHYSICIAN OFFICE SPECIALIST Work Phone: [facility] Start: 06-02-2023 [...] Not Available Start: 05-05-2023 End: 05-05-2023 ambulatory LAURIE Doherty APLING Not Available Start: 09-05-[address] ADELITA EPPERSON Facility :[facility] Start: 08-06-2022 End: 08-06-2022 ambulatory QUETA ZUNIGAMIPATHRandall . Facility:[facility] Start: 07-23-2022 End: 07-24-2022 ambulatory NARENDRANATH LAKSHMIPATHY . Facility:[facility] Start: 03-28-2022 End: 03-29-2022 ambulatory SEAN WELLS . Facility: Start: 01-03-2022 End: 01-04-2022 ambulatory SEAN WELLS . Facility:[facility] Start: 10-04-2021 End: 10-05-2021 ambulatory SEAN WELLS . Facility: Start: 04-10-2020 End: 04-10-2020 Patient encounter procedure Adelita Epperson [facility] [place] Start: 12-17-2018 End: 12-20-2018 Patient encounter procedure ADELITA EPPERSON [facility] Start: 12-17-2018 End: 12-19-2018 Subsequent hospital visit by physician [facility] Comment on above: Low back pain, unspe cified back pain laterality, unspecified chronicity, with sciatica presence unspecified Start: 03-02-2018 Patient encounter procedure Dale Chicas Facility:[id number] Start: 09-29-2017 Patient encounter procedure Dale Chicas Facility:[id number] Procedures Date Procedure Procedure Detail Performing Clinician Start: 12-17-2018 Radex spine lumbosac ral minimum 4 views ADELITA PHILIPPE Start: 12-17-2018 Radex spine lumbosac ral minimum 4 views Adelita Henry Work Phone: Start: 09-29-2017 Follow-up visit Plan of Treatment Date Care Activity Detail Author Start: 07-12-2024 End: 07-12-2024 Patient encounter procedure 07/12/2024 8:45 AM EDT Office Visit [facility] [address] [place] [address] Adelita Epperson MD [address] [place] [address] [facility] Start: 06-15-2024 End: 06-15-2024 Patient encounter procedure 06/15/2024 3:45 PM EST Office Visit [facility] [address] [place] [phone] Al Marin, DO [address] [place] [address] [facility] Start: 04-05-2024 End: 04-05-2024 Patient encounter procedure 04/05/2024 8:15 AM EST Office Visit [facility] [address] [place] [phone] Adelita Epperson MD [address] [place] [address] [facility] Start: 03-11-2024 End: 03-11-2024 Patient encounter procedure 03/11/2024 3:15 PM EST [facility] [address] [place] [phone] lA Marin, DO [address] [place] [address] [facility] Start: 03-02-2024 End: 03-02-2024 ambulatory 03/02/2024 10:30 AM EST Evaluation [facility] [address] [place] [phone] Antonio Solomon, PT [address] [place] [phone] [facility] Start: 12-28-2023 Influenza vaccination Influenza Vacc ine (#1) [facility] Start: 08-26-2023 End: 08-26-2023 Patient encounter procedure 08/26/2023 3:45 PM EDT [facility] [address] [place] [phone] Al Marin, DO [address] [place] [address] [facility] [place] Start: 07-14-2023 End: 07-14-2023 Patient encounter procedure 07/14/2023 8:45 AM EDT Office Visit [facility] [address] [place] [phone] Adelita Epperson MD [address] [place] [address] [facility] Start: 06-23-2023 End: 06-23-2023 Patient encounter procedure 06/23/2023 8:00 AM EST Office Visit [facility] [address] [facility] [address] [place] [address] Laurie Haley, PHYSICIAN OFFICE SPECIALIST [address] [facility] [address] [place] [address] [facility] Start: 06-16-2023 End: 06-16-2023 ambulatory 06/16/2023 4:15 PM EST Treatment [facility] [address] [place] [phone] Antonio Solomon, PT [address] [place] [phone] [facility] Start: 06-09-2023 End: 06-09-2023 ambulatory 06/09/2023 4:30 PM EST Treatment [facility] [address] [place] [phone] Antonio Solomon, PT [address] [place] [phone] [facility] Start: 06-04-2023 End: 06-04-2024 MR Lumbar spine WO contrast MR lumbar spine wo contrast Imaging Routine DDD (degenerative disc disease), lumbar Lumbar herniated disc Expected: 06/04/2023 (Approximate), Expires: 06/04/2024 [facility] Work Phone: Comment on above: Expected: 06/04/2023 (Approximate), Expires: 06/04/2024 Start: 12-27-2022 Influenza vaccination Influenza Vacc ine (#1) [facility] Start: 12-27-2018 Influenza vaccination Flu vaccine (# 1) [facility], [place] Start: 1999 DTaP/Tdap/Td vaccine (1 - Tdap) DTaP/Tdap/Td vaccine (1 - Tdap) [place], [place] Start: 1995 HIV screen HIV screen [place], [place] Start: 1993 Varicella Vaccine (1 of 2 - 13+ 2-dose series) Varicella Vaccine (1 of 2 - 13+ 2-dose series) [place], [place] Start: 1986 Pneumococcal 0-64 ye ars Vaccine (1 of 1 - PPSV23) Pneumococcal 0-64 years Vaccine (1 of 1 - PPSV23) [place], [place] Payers Date Payer Category Payer Self-pay [id number] 2020 Blue Cross Blue Shield BCBS [id number] 2020 Unknown [id number] 1.13.693.2 .[id number] 2017 Private Health Insurance [id number] 2017 Private Health Insurance [employer] xxxxxxxxxx 2017-Present [phone] [address] [place] [address] xxxxxxxxxx [id number] .7.3.894937.315 1980 Unknown [id number] 2.16.840.1.630600.3.579.2 .356 1980 Unknown [id number] 2.16.840.1.032985.3.579.2 .356 1980 Unknown [id number] 2.16.840.1.370293.3.579.2 .356 1980 Unknown [id number] 2.16.840.1.904839.3.579.2 .185 1980 Unknown [id number] 2.16.840.1.605101.3.579.2 .593 1980 Unknown [id number] 2.16.840.1.214537.3.579.2 .593 1980 Unknown [id number] 2.16.840.1.023131.3.579.2 .593 1980 Unknown [id number] 2.16.840.1.618018.3.579.2 .593 1980 Unknown [id number] 2.16.840.1.892708.3.579.2 .593 1980 Unknown [id number] 2.16.840.1.588586.3.579.2 .593 1980 Unknown [id number] 2.16.840.1.027433.3.579.2 .1258 1980 Unknown [id number] 2.16.840.1.088609.3.579.2 .1258 1980 Unknown [id number] 2.16.840.1.046889.3.579.2 .1258 1980 Unknown [id number] 2.16.840.1.551561.3.579.2 .1258 1980 Unknown [id number] 2.16.840.1.633914.3.579.2 .1258 1980 Unknown [id number] 2.16.840.1.280861.3.579.2 .1258 1980 Unknown [id number] 2.16.840.1.197330.3.579.2 .1259 1980 Unknown [id number] 2.16.840.1.121964.3.579.2 .9 1980 Unknown [id number] 2.16.840.1.996030.3.579.2 .9 1980 Unknown [id number] 2.16.840.1.380607.3.579.2 .1258 1980 Unknown [id number] 2.16.840.1.696401.3.579.2 .1258 1980 Unknown [id number] 2.16.840.1.117947.3.579.2 .1258 1980 Unknown [id number] 2.16.840.1.423275.3.579.2 .1258 1980 Unknown [id number] 2.16.840.1.678038.3.579.2 .1258 1980 Unknown [id number] 2.16.840.1.272321.3.579.2 .1258 1980 Unknown [id number] 2.16.840.1.717743.3.579.2 .1258 1980 Unknown [id number] 2.16.840.1.284885.3.579.2 .9 1980 Unknown [id number] 2.16.840.1.054396.3.579.2 .196 1980 Unknown [id number] 2.16840.1.356902.3.579.2 .196 1959 Unknown [id number] Unknown [id number] 2.16.840.1.864801.3.579.2 .531 Social History Date Type Detail Facility Start: 04-28-1993 End: 10-07-2023 Tobacco smoking status WVIS Current every day smoker [place], [place] Start: 01-16-2018 End: 11-07-2022 Alcohol intake No [place] Sex Assigned At Not on file [place] Start: 1980 Sex Assigned At Male N [facility] Start: 04-28-1993 History of tobacco use Cigarette Smo ker [facility] Start: 11-07-2022 End: 02-25-2023 Cigarettes smoked current (pack per day) - Reported 0.5 [facility] Start: 02-25-2023 End: 10-07-2023 Tobacco use and exposure Smokeless tobacco non-user [facility] Start: 05-05-2023 End: 12-09-2023 Alcohol intake Lifetime non-drinker (finding) [facility] Start: 11-06-2022 Alcohol Comment caffeine:Type: energy drink 3-- 16 0z cans per day [facility] Start: 10-10-2022 Gender identity Identifies as male gender (finding) [facility] Start: 10-10-2022 Sexual orientation Choose not to dis close [facility] Start: 07-14-2023 Alcohol Comment caffeine:Type: energy drink 1-- 16 0z can per day [facility] Goals Date Patient Goal Desired Activity /State Clinical Notes 10-04-2021 to 06-03-2023 Telephone Encounter - Nida Gross - 06/03/2023 2:47 PM ESTTelephone Encounter - Nida Gross - 06/03/2023 2:47 PM EST Note Date & Type Note Facility 06-03-2023 Telephone encount er Note Pt called back and would like to do MRI at [facility]. [facility] 06-03-2023 Miscellaneous Notes Formattin g of this note might be different from the original. Pt called back and would like to do MRI at [facility]. documented in this encounter [facility] 07-23-2022 Note PAIN MANAGEMENT CONS ULTATION CONSULTATION DATE: 07/23/2022 ADDENDUM: The dictation mentions denervation of the L4-5, L5-S1 facet joint under fluoroscopic guidance by using radiofrequency ablation on the left side. The dictation should read: Proceed with radiofrequency ablation of the L2-3, L4-5 levels under fluoroscopic guidance on the left side. [facility] 07-23-2022 Note PAIN MANAGEMENT CONS ULTATION CONSULTATION DATE: 07/23/2022 ADDENDUM: The dictation mentions denervation of the L4-5, L5-S1 facet joint under fluoroscopic guidance by using radiofrequency ablation on the left side. The dictation should read: Proceeded with radiofrequency ablation of the L2-3, L4-5 levels under fluoroscopic guidance on the left side. [facility] 07-23-2022 Note CONSULTATION CONSULTATION DATE: 07/23/2022 TO: [...] to proceed with the outlined plan. 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 He reports 0/10 pain [...] in six months' time for re-evaluation. [facility] 01-03-2022 Note CONSULTATION CONSULTATION DATE: 01/03/2022 HISTORY [...] three months' time, unless otherwise indicated. [facility] 10-04-2021 Note CONSULTATION CONSULTATION DATE: 10/04/2021 This [...] gluconate 800 mg q.h.s. in addition to btze-ueq-epezzkz ibuprofen 600 mg q.a.m. before work. Daily stretching and the use of heat were encouraged to aid with the spasms. We discussed about different vitamin regimens and the patient was willing to try. He will be followed up in the clinic in three months' time unless otherwise indicated. The patient agrees with the plan of care. [facility] Signed and Approved by: SEAN WELLS . 10/11/2021 16:03:00 [facility] Evaluation note Diagnosis DDD (degenerative disc disease), lumbar- Primary Degeneration of lumbar or lumbosacral intervertebral disc Lumbar herniated disc documented in this encounter [facility] noteNo assessment information availableAdena [facility] Work Phone: Evaluation note* Diagnosis Obesity (BMI 30-39.9) documented in this encounter [facility]* Diagnosis Lumbar paraspinal muscle spasm- Primary Other symptoms referable to back Lumbar radiculopathy Thoracic or lumbosacral neuritis or radiculitis, unspecified documented in this encounter [facility]* Diagnosis Lumbar paraspinal muscle spasm- Primary Other symptoms referable to back Lumbar radiculopathy Thoracic or lumbosacral neuritis or radiculitis, unspecified documented in this encounter [facility] HealthcareReason for visit Narrative* Rehabilitation - Outpatient (Routine) - Authorized Specialty Diagnoses / Procedures Referred By Selvin garcia Referred To Contact Physical Therapy Diagnoses Lumbar paraspinal muscle spasm Lumbar radiculopathy Procedures ID OFFICE/OUTPATIENT [facility] 60 MINUTES Adelita Epperson MD [address] [place] [address] Phone: tel: fax: Antonio Solomon, PT [address] [place] [address] Phone: tel: fax: Referral ID Status Reason Start Date Expiration Date Visits Requested Visits Authorized [id number] Authorized Consult and Treat 03/02/2024 08/29/2024 53 53 [facility] Summary Purpose Family History No Family History Records FoundNo Family History Records FoundNo Family History Records FoundNo Family History Records FoundNo Family History Records FoundNo Family History Records FoundNo Family History Records FoundNo Family History Records FoundNo Family History Records Found Advance Directives No Advanced Directives Records FoundDocuments on File Type Date Recorded Patient [place] Sorter Expl anation Advance Directives and Living Will Power of Psychiatric Technician Advance Directive Response Recorded Date/ Time Advance [...] herniated disc Procedures MR lumbar spine wo Laurie Schmidt NP [address] [facility] [address] [place] [address] Referral ID Status Reason Start Date Expiration Date V isits Requested Visits Authorized [id number] Pending Review 06/04/2023 12/01/2023 1 1 Additional Source Comments (unrecognized sect ion and content) No Status Records FoundNo Status Records FoundNo Status Records FoundNo Status Records FoundNo Status Records FoundNo Status Records FoundNo Status Records FoundNo Status Records FoundNo Status Records Found INFORMATION SOURCE (unrecogn ized section and content) DATE CREATED AUTHOR 04/05/2018 [facility] DATE CREATED AUTHOR AUTHOR'S ORGANIZ ATION 04/05/2018 [facility] DATE CREATED AUTHOR AUTHOR'S ORGANIZ ATION 12/20/2018 [facility] DATE CREATED AUTHOR AUTHOR'S ORGANIZ ATION 01/31/2019 [facility] DATE CREATED AUTHOR AUTHOR'S ORGANIZ ATION 08/08/2021 [facility] dical Specialist DATE CREATED AUTHOR AUTHOR'S ORGANIZ ATION 08/09/2022 [facility] DATE CREATED AUTHOR AUTHOR'S ORGANIZ ATION 09/04/2023 [facility] DATE CREATED AUTHOR AUTHOR'S ORGANIZ ATION 03/03/2024 [facility] dical Specialists [facility] DATE CREATED AUTHOR AUTHOR'S ORGANIZ ATION 03/20/2024 [facility] Care Teams (unrecognized sec tion and content) Agricultural Engineer Relationship Specialty Start Date End Date Adelita Epperson MD [address] [place] [address] PCP - General Internal Medicine 11/06/22 Team Status: Active Member Role Status Dates Adelita Epperson MD Primary Care Provider Active Team Status: Inactive Member Role Status Dates Adelita Epperson MD Primary Care Provider Active St art: September 03, 2023 End: September 03, 2023 Manjinder Lynn Jr, DO Attending Provider Active S tart: September 03, 2023 End: September 03, 2023 Agricultural Engineer Relationship Specialty Start Date End Date Adelita Epperson MD [address] [place] [address] PCP - General Internal Medicine 11/06/22 Adelita Epperson MD [address] [place] [address] PCP - [place] [employer] 06/27/23 Agricultural Engineer Relationship Specialty Start Date End Date Adelita Epperson MD [address] [place] [address] PCP - General Internal Medicine 11/06/22 Adelita Epperson MD [address] [place] [address] PCP - [place] [employer] 06/27/23 Agricultural Engineer Relationship Specialty Start Date End Date Adelita Epperson MD [address] [place] [address] PCP - General Internal Medicine 11/06/22 Adelita Epperson MD [address] [place] [address] PCP - [place] [employer] 06/27/23 Goals (unrecognized section and content) [...] BE BASED ON THE PRIMARY CLINICAL RECORDS. [email or web address] provides no warranty or guarantee of the accuracy or completeness of information in this document.
--- NOTE | 2024-03-24 08:54 | P.CN_ITS ---
Consult Note: HPI Data of Consult Patient: known to practice within the last 3 years Consult date: 07/02/23 Requesting Physician: Jeanette Castro NP Primary Care Provider: ADELITA EPPERSON Consult Narrative Reason for consult: f/u Narrative: Omar Voss a pleasant 43 year old male presents for evaluation and management of chronic low back pain and left leg pain, hx of LX DDD and lumbar radiculopathy. Pain today 2/10 in left low back and leg, sharp shooting burning pain. patient finds mild benefit from tylenol, NSAIDs. Does utilize THC gummies for sleep. Has tried baclofen 10mg HS PRN with benefit. Prior Left L2,3 L4,5 facet RFA with 75% improvement ongoing in axial low back pain. recently underwent left L4/5 L5/s1 tfesi with >50% improvement ongoing. cc:: CC: Jeanette Castro NP Review of Systems ROS Status of ROS 10 or more systems reviewed and unremark able except as noted in history and below Musculoskeletal Reports: back pain PFSH PFSH Surgical History Hx of tonsillectomy ?Z90.89 - Acquired absence of other organs (ICD-10) History of tympanoplasty ?Z98.890 - Other specified postprocedural states (ICD-10) History of lumbar surgery ?Z98.890 - Other specified postprocedural states (ICD-10) Meds Home Medications and Allergies Home Medications ?Medication ?Instructions ?Recorded ?Confirmed ?Type thc gummies PO .qhs 07/03/23 History baclofen 10 mg tablet 10 mg PO .qhs 12/16/23 03/15/24 History Allergies Allergy/AdvReac Type Severity Reaction Status Date / Time No Known Drug Allergies Allergy Verified 03/15/24 06:54 Exam Constitutional Documenting provider has reviewed patient's vital signs: yes Common normals: no apparent distress, oriented x3, healthy appearing, alert and well nourished General appearance: cooperative HENMT Common normals: normocephalic, hearing grossly normal bilaterally and moist oral mucous membranes Head and scalp: normocephalic Eye Common normals: PERRL Pupil: PERRL Neck & C-Spine Common normals: full ROM General: normal visual inspection Chest Common normals: inspection of chest normal Respiratory Common normals: normal respiratory effort, no retractions and no use of accessory muscles Back & Pelvis Lumbar spine/lower back: pain with ROM, paraspinal muscle tenderness, paraspinal muscle spasm and straight leg raise positive left; straight leg raise negative right Sacroiliac joints: SI joints normal Other: strength 5/5 in BLE negative facet loading sensation intact BLE Extremity Common normals: normal to inspection and full ROM Neuro Common normals: oriented x3, CN's II-XII intact bilaterally, moves all extremities, no focal motor deficits, no sensory deficits noted and deep tendon reflexes 2+ bilaterally Sensorium/orientation: alert Motor exam: strength 5/5 throughout and no movement abnormalities noted Psych Common normals: mental status grossly normal, thought process normal, cooperative, affect normal, speech normal and activity/motor behavior normal Speech: normal speech Thought process: normal thought process Results Additional Findings Additional findings: If on a controlled substance or opioids, I have checked an [facility] report on this patient and there are no aberrancies noted in the prescribing history.??If on a controlled substance or opioid a drug screen was completed and reviewed within the last year, and if there has not been a drug screen completed we ordered one today to monitor higher risk, state monitored pain medication use. As part of providing excellent, safe, comprehensive care, the following was completed at our patient's visit: 1. A medication reconciliation and review to ensure accurate knowledge of current/active medications, including asking our patients to inform us about any [id number] medications or herbal remedies/nutritional supplements/alternative remedies. 2. A review to specifically ensure our patients have had annual screening for screening for depression, screening for tobacco use, and screening for unhealthy alcohol use. For concerning screenings had a discussion with the patient, provided patient education, and recommended follow-up with primary care provider when appropriate. If patient noted with a risk of falling, they received education on strength, gait, and balance training to prevent future risk of falling. Assessment and Plan Assessment and Plan (1) Lumbar stenosis with neurogenic claudication: Assessment and Plan: >50% improvement ongoing from prior and most recent injections (2) Myofascial pain: (3) Lumbar radiculopathy: (4) Lumbar spondylosis: (5) Sacroiliitis: Plan continue current medications continue HEP as tolerated f/u 3 months, sooner if needed
== END 2024-03-24 08:37 | disposition home or self-care (01) ==
LOC: PM 08:36
PROVIDERS: PCP Internal Medicine; Visit Provider Nurse Practitioner
DX: M48.062 Spinal stenosis, lumbar region with neurogenic claudication (principal); M79.18 Myalgia, other site; M54.16 Radiculopathy, lumbar region; M47.816 Spondylosis without myelopathy or radiculopathy, lumbar region; M46.1 Sacroiliitis, not elsewhere classified
CPT/HCPCS: G0463

== ENCOUNTER 2024-06-23 08:21 | Outpatient (OUT) | payer BC, SELFPAY ==
--- OUTSIDE RECORDS SUMMARY | 2024-06-23 08:36 | XMS_ITS | CCD ---
Author Organization [facility] CliniSypr Care Team Providers Care Patient Assessment Coordinator Name Role Phone Jennifer Muller Unavailable Unavailable [...] Primary Care Provider Dereck Morrow Attending Provider [phone] LAKSHMIPATHY ., NARENDRANATH Attending Mell vailable [...] Tate Admitting Unavailable CHRISTIANSON ., DR BERNARDO Ttae Attending Unavailable DR ADELITA EPPERSON Primary Care [...] Unavailable Adelita Epperson MD Primary Care Provider [phone] Manjinder Lynn Jr Attending Unavailable Manjinder Lynn Jr Admitting Unavailable Adelita Epperson Primary Care Unavailable MD Adelita Epperson Primary Care Provider DO Manjinder Lynn Jr Attending Provider Adelita Epperson MD Unavailable Chloé CID, Laura Gutierrez Attending Unavailable Chloé CID, Laura Gutierrez Attending Unavailable TOMAS, AL Tate Attending Unavailable TONYA ESTRELLA Attending Unavailable ADELITA EPPERSON Attending Unavailable TOMAS, AL Tate Attending Unavailable ADELITA EPPERSON Attending Unavailable HANS LORD Attending Unavailable TOMAS, AL Tate Attending Unavailable TOMAS, AL Tate Attending Unavailable ANTONIO SOLOMON Attending Unavailable ADELITA EPPERSON Referring Unavailable ADELITA EPPERSON Attending Unavailable JORGITO CHIRINOS Attending Unavailable Unavailable Unavailable Unavailable Medications Current [...] 5-325 MG per tablet Cannabinoids (medical cannabis) (12 sources) Cannabinoids (medical cannabis) Medicinal Marijuana Active Cannabinoids (me dical cannabis) Medicinal Marijuana 0 Active ibuprofen 800 mg oral tablet (12 sources) Nonsteroidal Anti-inflammatory Drug take 1 tablet by mouth every six hours as needed ibuprofen 800 MG tablet Take 800 mg by mouth every 6 (six) hours if needed. Active naproxen 375 mg oral tablet (1 source) Nonsteroidal Anti-inflammatory Drug naproxen (NAPROSYN) 375 MG tablet Take 375 mg by mouth as needed for Pain 0 Active phentermine hydrochloride 37.5 mg oral tablet (16 sources) Sympathomimetic Amine Anorectic Start: End: take 1 tablet by mouth before mealtime phentermine (Adipex-P) 37.5 MG tablet Indications: Obesity (BMI 30-39.9) Take 1 tablet (37.5 mg) by mouth in the morning. Take before meals. 30 tablet 05/31/2024 Active Start: 01-13-2024 take 1 tablet by livier th before mealtime phentermine (Adipex-P) 37.5 MG tablet Indications: Obesity (BMI 30-39.9) Take 1 tablet (37.5 mg) by mouth in the morning. Take before meals. 30 tablet 01/13/2024 Active Start: 12-05-2023 End: 03-24-2024 take 1 tablet by mouth before mealtime phentermine (Adipex-P) 37.5 MG tablet Indications: Obesity (BMI 30-39.9) Take 1 tablet (37.5 mg) by mouth in the morning. Take before meals. 30 tablet 03/24/2024 Active zonisamide 50 mg oral capsule (3 sources) Anti-epileptic Agent Start: 01-12-2024 End: 04-05-2024 take 1 capsule by mouth once daily at bedtime zonisamide (Zonegran) 50 MG capsule TAKE 1 CAPSULE BY MOUTH EVERYDAY AT BEDTIME 01/12/2024 04/05/2024 Discontinued Completed/Discontinued Medications Medication Drug Class(es) Dates Sig (Normalized) Sig (Original) baclofen 10 mg oral tablet (7 sources) gamma-Aminobutyri c Acid-ergic Agonist Start: 02-17-2024 End: 06-15-2024 take 1 tablet by mouth in the morning baclofen (Lioresal) 10 MG tablet Take 1 tablet by mouth in the morning and 1 tablet before bedtime. 02/17/2024 06/15/2024 Discontinued Problems Active Problems Problem Classification Problem Date Documented Date Episodic/Chronic Cardiac dysrhythmias (2 sources) Palpitations; Translations: [Palpitations] 04-05-2024 Episodic Other aftercare (2 sources) Patient encounter status; Translations: [Other retirement (current) drug therapy] 04-05-2024 Episodic Other connective tissue disease (1 source) Other muscle spasm; Translations: [OTHER MUSCLE SPASM] Onset: 07-26-2022 Episodic Other ear and sense organ disorders (12 sources) Conductive hearing loss, unilateral, left ear, with unrestricted hearing on the contralateral side; Translations: [Conductive hearing loss, unilateral] Onset: 01-14-2017 02-24-2023 Chronic Other ear and sense organ disorders (2 sources) Hearing loss in left ear; Translations: [Unspecified hearing loss, left ear] 06-15-2024 Chronic Other liver diseases (1 source) Nodule of liver; Translations: [Other specified diseases of liver] Onset: 11-01-2022 11-01-2022 Chronic Other nervous system disorders (1 source) Other chronic pain; Translations: [OTHER CHRONIC PAIN] Onset: 07-26-2022 Chronic Other nervous system disorders (2 sources) H/O: ear disorder; Translations: [Personal history of other diseases of the nervous system and sense organs] 06-15-2024 Episodic Other nutritional; endocrine; and metabolic disorders (1 source) Morbid obesity; Translations: [Morbid (severe) obesity due to excess calories] Onset: 11-01-2022 11-01-2022 Chronic Other nutritional; endocrine; and metabolic disorders (2 sources) Severe obesity; Translations: [Morbid (severe) obesity due to excess calories] 04-05-2024 Chronic Otitis media and related conditions (2 sources) Chronic left mastoiditis; Translations: [Chronic mastoiditis, left ear] 06-15-2024 Chronic Spondylosis; intervertebral disc disorders; other back problems (20 sources) Lumbosacral spondylosis without myelopathy; Translations: [Spondylosis without myelopathy or radiculopathy, lumbar region] Onset: 01-24-2010 Resolved: 02-24-2023 06-24-2017 Chronic Substance-related disorders (2 sources) Tobacco dependence caused by cigarettes; Translations: [Nicotine dependence, cigarettes, uncomplicated] 04-05-2024 Chronic Unclassified (1 source) Condctv hear loss, uni, left ear, w unrestr hear cntra side / H90.12(ICD-10) Onset: 09-29-2017 Unclassified (1 source) Unspecified cholesteatoma, left ear / H71.92(ICD-10) Onset: 09-29-2017 Unclassified (1 source) LOW BACK PAIN, UNSPECIFIED; Translations: [LOW BACK PAIN, UNSPECIFIED] Onset: 04-02-2022 Past or Other Problems Problem Classification Problem Date Documented Da te Episodic/Chronic Esophageal disorders (12 sources) Laryngopharyngeal reflux; Translations: [Gastro-esophageal reflux disease without esophagitis] Onset: 3 Resolved: 3 02-24-2023 Chronic Other diseases of veins and lymphatics (12 sources) Lymphedema; Translations: [Lymphedema, not elsewhere classified] Onset: 9 Resolved: 3 02-24-2023 Chronic Other gastrointestinal disorders (12 sources) Chronic constipation; Translations: [Other constipation] Onset: 0 Resolved: 3 02-24-2023 Episodic Other liver diseases (12 sources) Elevated liver enzymes level; Translations: [Abnormal levels of other serum enzymes] Onset: 3 Resolved: 4 11-01-2022 Episodic Other nutritional; endocrine; and metabolic disorders (19 sources) Body mass index 30+ - obesity; Translations: [Obesity, unspecified] Onset: 3 Resolved: 3 02-24-2023 Chronic Residual codes; unclassified (14 sources) FH: premature coronary heart disease; Translations: [...] 09-03-2023 ALT [Catalytic activity/Vol] 29 U/L 7-[address] [facility] Albumin [Mass/volume] in Ser um or Plasma by Bromocresol green (BCG) dye binding methoOrdered By: Manjinder Lynn on 09-03-2023 Albumin BCG dye [Mass/Vol] 4.6 g/dL 3.5-5.[address] [facility] Alkaline phosphatase [Enzyma tic activity/volume] in Serum or PlasmaOrdered By: Manjinder Lynn on 09-03-2023 ALP [Catalytic activity/Vol] 75 U/L 34-[address] [facility] Aspartate aminotransferase [ Enzymatic activity/volume] in Serum or PlasmaOrdered By: Manjinder Lynn on 09-03-2023 AST [Catalytic activity/Vol] 20 U/L 13-[address] [facility] Basophils Auto (Bld) [#/Vol] Ordered By: Manjinder Lynn on 09-03-2023 Basophils (Bld) [#/Vol] 0.1 10*3/uL 0.0-0.[address] [facility] Basophils/100 WBC Auto (Bld) Ordered By: Manjinder Lynn on 09-03-2023 Basophils/100 WBC (Bld) 1.1 % . [facility] Bilirubin.total [Mass/volume ] in Serum or PlasmaOrdered By: Manjinder Lynn on 09-03-2023 Bilirubin [Mass/Vol] 1.3 mg/dL 0.3-1.0 [facility] Comment on above: Samples from patient s who have taken Naproxen have shown spurious elevation in Total Bilirubin levels. A metabolite of Naproxen, O-desmethylnaproxen, has been shown to interfere with the Tracy-María method for measuring Total Bilirubin. Calcium [Mass/volume] in Ser um or PlasmaOrdered By: Manjinder Lynn on 09-03-2023 Calcium [Mass/Vol] 9.5 mg/dL 8.6-10.3 [facility] Carbon dioxide, total [Moles /volume] in Serum or PlasmaOrdered By: Manjinder Lynn on 09-03-2023 CO2 [Moles/Vol] 27.6 mmol/L 21.0-31.0 [facility] Chloride [Moles/volume] in S cheryl or PlasmaOrdered By: Manjinder Lynn on 09-03-2023 Chloride [Moles/Vol] 103 mmol/L 98-107 [facility] Complete Blood Count no refl exon 09-03-2023 Basophils (Bld) [#/Vol] 0.1 10*3/uL Normal 0.0-0.2 [facility] Comment on above: Result Comment: PERF ORMED BY: [place] [address] PATHOLOGIST OFFICE MOVER JOÃO YATES M.D. Performed By: #### C [facility] CBC #### [address] Basophils/100 WBC (Bld) 1.1 % Normal . [facility] Comment on above: Performed By: #### C LIANA, [facility] CBC #### [address] Eosinophils (Bld) [#/Vol] 0.4 10*3/uL Normal 0.0-0.45 [facility] Comment on above: Performed By: #### [facility] CBC #### [address] Eosinophils/100 WBC (Bld) 4.9 % Normal . [facility] Comment on above: Performed By: #### C [facility] CBC #### [address] Erythrocyte distribution width (RBC) [Ratio] 13.4 % Normal 12.0-14.8 [facility] Comment on above: Performed By: #### C [facility] CBC #### [address] Hematocrit (Bld) [Volume fraction] 43.4 % Normal 38.8-50.0 [facility] Comment on above: Performed By: #### C [facility] CBC #### [address] Hemoglobin (Bld) [Mass/Vol] 15.1 g/dL Normal 13.0-17.0 [facility] Comment on above: Performed By: #### [facility] CBC #### [address] Lymphocytes (Bld) [#/Vol] 3.5 10*3/uL Normal 1.00-4.8 [facility] Comment on above: Performed By: #### C LIANA, [facility] CBC #### [place] [address] [place] Lymphocytes/100 WBC (Bld) 38.0 % Normal . [facility] Comment on above: Performed By: #### C LIANA, [facility] CBC #### [address] MCH (RBC) [Entitic mass] 30.6 pg Normal 27.5-35.2 [facility] Comment on above: Performed By: #### C LIANA, [facility] CBC #### [address] MCV (RBC) [Entitic vol] 88.2 fL Normal 83.5-101 [facility] Comment on above: Performed By: #### C LIANA, [facility] CBC #### [address] Mean Corpuscular HGB Conc 34.7 g/dL Normal 32.5-35.6 [facility] Comment on above: Performed By: #### C LIANA, [facility] CBC #### [address] Monocytes (Bld) [#/Vol] 0.7 10*3/uL Normal 0.0-0.8 [facility] Comment on above: Performed By: #### C L[facility]NA, [facility] CBC #### [address] Monocytes/100 WBC (Bld) 7.1 % Normal . [facility] Comment on above: Performed By: #### C LIANA, [facility] CBC #### [address] Neutrophils (Bld) [#/Vol] 4.5 10*3/uL Normal 1.8-7.7 [facility] Comment on above: Performed By: #### C LIANA, [facility] CBC #### [address] Neutrophils/100 WBC (Bld) 48.9 % Normal . [facility] Comment on above: Performed By: #### C LIANA, [facility] CBC #### [address] NRBC% 0.2 /100{WBC} Normal 0-0.5 [facility] Comment on above: Performed By: #### C LIANA, [facility] CBC #### [address] Platelet mean volume (Bld) [Entitic vol] 9.6 fL Normal 6.6-10.1 [facility] Comment on above: Performed By: #### C LIANA, [facility] CBC #### [address] Platelets (Bld) [#/Vol] 230 10*3/uL Normal 150-450 [facility] Comment on above: Performed By: #### C LIANA, [facility] CBC #### [address] RBC (Bld) [#/Vol] 4.92 10*6/uL Normal 3.90-5.60 [facility] Comment on above: Performed By: #### C L[facility]NA, [facility] CBC #### [address] WBC (Bld) [#/Vol] 9.2 10*3/uL Normal 4.1-10.5 [facility] Comment on above: Performed By: #### C L[facility]NA, [facility] CBC #### [address] Comprehensive Metabolic Pane serafin 09-03-2023 Albumin [Mass/Vol] 4.6 g/dL Normal 3.5-5.7 [facility] Comment on above: Performed By: #### C L[facility], [facility] CBC #### [address] Albumin/Globulin [Mass ratio] 2.1 {ratio} Normal [facility] Comment on above: Performed By: #### C L[facility]NA, [facility] CBC #### [address] ALP [Catalytic activity/Vol] 75 U/L Normal 34-104 [facility] Comment on above: Result Comment: PERF ORMED BY: [address] [place] [address] PATHOLOGIST OFFICE MOVER JOÃO YATES M.D. Performed By: #### C [facility], [facility] CBC #### [address] ALT [Catalytic activity/Vol] 29 U/L Normal 7-52 [facility] Comment on above: Performed By: #### C L[facility]NA, [facility] CBC #### [address] Anion gap [Moles/Vol] 11.4 mmol/L Normal 6.0-15.0 [facility] Comment on above: Performed By: #### C L[facility]NA, [facility] CBC #### [address] AST [Catalytic activity/Vol] 20 U/L Normal 13-39 [facility] Comment on above: Performed By: #### C [facility], [facility] CBC #### [address] Bilirubin [Mass/Vol] 1.3 mg/dL High 0.3-1.0 [facility] Comment on above: Result Comment: Samp les from patients who have taken Naproxen have shown spurious elevation in Total Bilirubin levels. A metabolite of Naproxen, O-desmethylnaproxen, has been shown to interfere with the Jendrassik-Grof method for measuring Total Bilirubin. Performed By: #### C L[facility], [facility] CBC #### [address] Calcium [Mass/Vol] 9.5 mg/dL Normal 8.6-10.3 [facility] Comment on above: Performed By: #### C L[facility], [facility] CBC #### [place] [address] [place] Chloride [Moles/Vol] 103 mmol/L Normal 98-107 [facility] Comment on above: Performed By: #### C L[facility]NA, [facility] CBC #### [place] [address] [place] CO2 [Moles/Vol] 27.6 mmol/L Normal 21.0-31.0 [facility] Comment on above: Performed By: #### C L[facility], [facility] CBC #### [facility] [address] Creatinine [Mass/Vol] 1.22 mg/dL Normal 0.70-1.30 [facility] Comment on above: Performed By: #### C L[facility], [facility] CBC #### [facility] [address] [place] [address] [place] GFR/1.73 sq M.predicted MDRD (S/P/Bld) [Vol rate/Area] mL/min/{1.73_m2} Normal [facility] Comment on above: Performed By: #### C L[facility], [facility] CBC #### [facility] [address] Globulin (S) [Mass/Vol] 2.2 g/dL Normal T [facility] Comment on above: Performed By: #### C L[facility], [facility] CBC #### [address] Glucose [Mass/Vol] 117 mg/dL High 70-100 [facility] Comment on above: Result Comment: [facility] Glucose Reference Range is dependent on time and content of last meal. Glucose of more than 200 mg/dL in a nonstressed, ambulatory subject supports the diagnosis of Diabetes Mellitus. ADA recommended reference range Performed By: #### C L[facility], [facility] CBC #### [facility] [address] Potassium [Moles/Vol] 4.0 mmol/L Normal 3.5-5.1 [facility] Comment on above: Performed By: #### C L[facility], [facility] CBC #### [facility] [address] [place] [address] [place] Protein [Mass/Vol] 6.8 g/dL Normal 6.4-8.9 [facility] Comment on above: Performed By: #### C [facility], [facility] CBC #### [facility] [address] Sodium [Moles/Vol] 138 mmol/L Normal 136-145 [facility] Comment on above: Performed By: #### C MP, [facility] CBC #### [facility] [address] Urea nitrogen [Mass/Vol] 11 mg/dL Normal 7-25 [facility] Comment on above: Performed By: #### C MP, [facility] CBC #### [facility] [address] [place] [id number] [place] Creatinine [Mass/volume] in Serum or PlasmaOrdered By: Manjinder Lynn on 09-03-2023 Creatinine [Mass/Vol] 1.22 mg/dL 0.70-1.30 [place] Eosinophils Auto (Bld) [#/Vo l]Ordered By: Manjinder Lynn on 09-03-2023 Eosinophils (Bld) [#/Vol] 0.4 10*3/uL 0.0-0.[address] [facility] Eosinophils/100 WBC Auto (Bl d)Ordered By: Manjinder Lynn on 09-03-2023 Eosinophils/100 WBC (Bld) 4.9 % . [facility] Erythrocyte distribution wid th Auto (RBC) [Ratio]Ordered By: Manjinder Lynn on 09-03-2023 Erythrocyte distribution width (RBC) [Ratio] 13.4 % 12.0-14.[address] [facility] Globulin Calc (S) [Mass/Vol] Ordered By: Manjinder Lynn on 09-03-2023 Globulin (S) [Mass/Vol] 2.2 g/dL [facility] Glucose [Mass/volume] in Ser um or PlasmaOrdered By: Manjinder Lynn on 09-03-2023 Glucose [Mass/Vol] 117 mg/dL 70-100 [facility] Comment on above: ADA recommended refe rence rangeRandom Glucose Reference Range is dependent on time and content of last meal. Glucose of more than 200 mg/dL in a nonstressed, ambulatory subject supports the diagnosis of Diabetes Mellitus. Hematocrit Auto (Bld) [Volum e fraction]Ordered By: Manjinder Lynn on 09-03-2023 Hematocrit (Bld) [Volume fraction] 43.4 % 38.8-50.[address] [facility] Hemoglobin [Mass/volume] in BloodOrdered By: Manjinder Lynn on 09-03-2023 Hemoglobin (Bld) [Mass/Vol] 15.1 g/dL 13.0-17.[address] [facility] Leukocytes [#/volume] correc padma for nucleated erythrocytes in Blood by Automated counOrdered By: Manjinder Lynn on 09-03-2023 WBC corrected for nucl RBC Auto (Bld) [#/Vol] 9.2 10*3/uL 4.1-10.[address] [facility] Lymphocytes Auto (Bld) [#/Vo l]Ordered By: Manjinder Lynn on 09-03-2023 Lymphocytes (Bld) [#/Vol] 3.5 10*3/uL 1.00-4.[address] [facility] Lymphocytes/100 WBC Auto (Bl d)Ordered By: Manjinder Lynn on 09-03-2023 Lymphocytes/100 WBC (Bld) 38.0 % . [facility] MCH Auto (RBC) [Entitic mass ]Ordered By: Manjinder Lynn on 09-03-2023 MCH (RBC) [Entitic mass] 30.6 pg 27.5-35.[address] [facility] MCHC Auto (RBC) [Mass/Vol]Or dered By: Manjinder Lynn on 09-03-2023 MCHC (RBC) [Mass/Vol] 34.7 g/dL 32.5-35.6 [place] MCV Auto (RBC) [Entitic vol] Ordered By: Manjinder Lynn on 09-03-2023 MCV (RBC) [Entitic vol] 88.2 fL 83.5-101 [facility] Monocytes Auto (Bld) [#/Vol] Ordered By: Manjinder Lynn on 09-03-2023 Monocytes (Bld) [#/Vol] 0.7 10*3/uL 0.0-0.[address] [facility] Monocytes/100 WBC Auto (Bld) Ordered By: Manjinder Lynn on 09-03-2023 Monocytes/100 WBC (Bld) 7.1 % . [facility] Neutrophils Auto (Bld) [#/Vo l]Ordered By: Manjinder Lynn on 09-03-2023 Neutrophils (Bld) [#/Vol] 4.5 10*3/uL 1.8-7.[address] [facility] Neutrophils/100 WBC Auto (Bl d)Ordered By: Manjinder Lynn on 09-03-2023 Neutrophils/100 WBC (Bld) 48.9 % . [facility] No Panel InformationOrdered By: Manjinder Lynn on 09-03-2023 Estimated GFR (CKD-EPI) > 60.0 mL/Min [facility] Creatinine Clearance (Chem N/A [facility] Nucleated erythrocytes [Pres ence] in Blood by Automated countOrdered By: Manjinder Lynn on 09-03-2023 Nucleated RBC Auto Ql (Bld) 0.2 /100{WBC} 0-0.[address] [facility] Platelet mean volume Auto (B ld) [Entitic vol]Ordered By: Manjinder Lynn on 09-03-2023 Platelet mean volume (Bld) [Entitic vol] 9.6 fL 6.6-10.[address] [facility] Platelets Auto (Bld) [#/Vol] Ordered By: Manjinder Lynn on 09-03-2023 Platelets (Bld) [#/Vol] 230 10*3/uL 150-[address] [facility] Potassium [Moles/volume] in Serum or PlasmaOrdered By: Manjinder Lynn on 09-03-2023 Potassium [Moles/Vol] 4.0 mmol/L 3.5-5.1 [place] Protein [Mass/volume] in Ser um or PlasmaOrdered By: Manjinder Lynn on 09-03-2023 Protein [Mass/Vol] 6.8 g/dL 6.4-8.9 [facility] RBC Auto (Bld) [#/Vol]Ordere d By: Manjinder Lynn on 09-03-2023 RBC (Bld) [#/Vol] 4.92 10*6/uL 3.90-5.60 [facility] Serum or plasma albumin/glob ulin mass ratioOrdered By: Manjinder Lynn on 09-03-2023 Albumin/Globulin [Mass ratio] 2.1 {ratio} [facility] Serum or plasma anion gap de terminationOrdered By: Manjinder Lynn on 09-03-2023 Anion gap [Moles/Vol] 11.4 mmol/L 6.0-15.0 [facility] Sodium [Moles/volume] in Ser um or PlasmaOrdered By: Manjinder Lynn on 09-03-2023 Sodium [Moles/Vol] 138 mmol/L 136-145 [facility] Urea nitrogen [Mass/volume] in Serum or PlasmaOrdered By: Manjinder Lynn on 09-03-2023 Urea nitrogen [Mass/Vol] 11 mg/dL 7-[address] [facility] WBC Auto (Bld) [#/Vol]Ordere d By: Manjinder Lynn on 09-03-2023 WBC (Bld) [#/Vol] 9.2 10*3/uL 4.1-10.5 [facility] XR chest 1Von 09-03-2023 XR chest 1V [facility] [place] [address] XRay Report Signed Patient: Luís Calhoun MR#: [id number] : 1980 Acct:[id number] Age/Sex: 43 / M ADM Date: 09/03/23 Loc: [place] Room: Type: [facility] Attending Dr: Manjinder Lynn Jr, DO [...] Pelon Salazar M.D.09/03/2023 1:17 PM Dictation Location: [place] [address] Transcribed By: [facility] 09/03/231316 Dictated By: Pelon Salazar DO 09/03/231316 Signed By: 09/03/23 131 Normal [facility] Complete Blood Counton 08-07 Erythrocyte distribution width (RBC) [Ratio] 13.0 % Normal 11.0-15.0 [place] [employer] Comment on above: Performed By: #### L IPD, CBC, CMP #### [facility] [address] [place], [place] [id number] Hematocrit (Bld) [Volume fraction] 46.2 % Normal 38.5-50.0 [facility] Special[facility] Comment on above: Performed By: #### L IPD, CBC, CMP #### [facility] [address] [place], [place] [id number] Hemoglobin (Bld) [Mass/Vol] 15.6 g/dL Normal 13.0-17.1 [facility] Comment on above: Performed By: #### L IPD, CBC, CMP #### [facility] [address] [place], [place] [id number] MCH (RBC) [Entitic mass] 29.8 pg Normal 27.0-33.0 [facility] Comment on above: Performed By: #### L IPD, CBC, CMP #### [facility] [address] [place], [place] [id number] MCHC (RBC) [Mass/Vol] 33.8 g/dL Normal 32.0-36.0 [facility] Comment on above: Performed By: #### L IPD, CBC, CMP #### [facility] [address] [place], [place] [id number] MCV (RBC) [Entitic vol] 88 fL Normal 80-100 [facility] Specialist Comment on above: Performed By: #### L IPD, CBC, CMP #### [facility] [address] [place], [place] [id number] Platelet mean volume (Bld) [Entitic vol] 11.20 fL Normal 7.50-12.50 [facility] Specialist Comment on above: Performed By: #### L IPD, CBC, CMP #### [facility] [address] [place], [place] [id number] Platelets (Bld) [#/Vol] 231 10*3/uL Normal 140-400 [facility] Specialist Comment on above: Performed By: #### L IPD, CBC, CMP #### [facility] [address], [place] [id number] RBC (Bld) [#/Vol] 5.24 10*6/uL Normal 4.20-5.80 [facility] Mobile Sales Technician Comment on above: Performed By: #### L IPD, CBC, CMP #### [facility] [address], [place] [id number] RDW-SD 42.1 fL Normal 37.0-50.0 [facility] Mobile Sales Technician Comment on above: Performed By: #### L IPD, CBC, CMP #### [facility] [address], [place] [id number] WBC (Bld) [#/Vol] 9.2 10*3/uL Normal 3.8-11.0 [facility] Mobile Sales Technician Comment on above: Performed By: #### L IPD, CBC, CMP #### [facility] [address], [place] [id number] Comprehensive Metabolic Pane serafin 08-07-2021 Albumin [Mass/Vol] 4.7 g/dL Normal 3.6-5.1 [facility] Mobile Sales Technician Comment on above: Performed By: #### L IPD, CBC, CMP #### [facility] [address], [place] [id number] Albumin/Globulin [Mass ratio] 2.4 {ratio} Normal 1.0-2.5 [facility] Mobile Sales Technician Comment on above: Performed By: #### L IPD, CBC, CMP #### [facility] [address], [place] [id number] ALP [Catalytic activity/Vol] 76 U/L Normal 40-129 [facility] Mobile Sales Technician Comment on above: Performed By: #### L IPD, CBC, CMP #### [facility] [address], [place] [id number] ALT [Catalytic activity/Vol] 52 U/L High 9-46 [facility] Comment on above: Result Comment: 03/28 Female reference range changed. Performed By: #### L IPD, CBC, CMP #### [facility] [address], [place] [id number] Anion gap [Moles/Vol] 18 mmol/L Normal 12-20 [facility] Mobile Sales Technician Comment on above: Result Comment: Effe ctive 05/03/2019 reference range changed. Performed By: #### L IPD, CBC, CMP #### [facility] [address], [place] [id number] AST [Catalytic activity/Vol] 36 U/L Normal 10-[address] [facility] Comment on above: Performed By: #### L IPD, CBC, CMP #### [facility] [address], [place] [id number] Bilirubin [Mass/Vol] 1.27 mg/dL High 0.30-1.20 [facility] Comment on above: Performed By: #### L IPD, CBC, CMP #### [facility] [address], [place] [id number] BUN/CREA 10 Ratio Normal 6-[address] [facility] Comment on above: Performed By: #### L IPD, CBC, CMP #### [facility] [address], [place] [id number] Calcium [Mass/Vol] 9.6 mg/dL Normal 8.6-10.2 [facility] Comment on above: Performed By: #### L IPD, CBC, CMP #### [facility] [address], [place] [id number] Chloride [Moles/Vol] 104 mmol/L Normal 98-107 [facility] Comment on above: Performed By: #### L IPD, CBC, CMP #### [facility] [address], [place] [id number] CO2 [Moles/Vol] 22 mmol/L Normal 20-[address] [facility] Comment on above: Performed By: #### L IPD, CBC, CMP #### [facility] [address], [place] [id number] Creatinine [Mass/Vol] 1.0 mg/dL Normal 0.7-1.4 [facility] Comment on above: Performed By: #### L IPD, CBC, CMP #### [facility] [address], [place] [id number] eGFRAA 96 mL/min/1.73m2 Normal >[address] [facility] Comment on above: Performed By: #### L IPD, CBC, CMP #### [facility] [address], [place] [id number] eGFRNAA 80 mL/min/1.73m2 Normal >60 [facility] Mobile Sales Technician Comment on above: Performed By: #### L IPD, CBC, CMP #### [facility] [address], [place] [id number] Globulin (S) [Mass/Vol] 2.0 g/dL Normal 1.9-3.7 [facility] Mobile Sales Technician Comment on above: Performed By: #### L IPD, CBC, CMP #### [facility] [address], [place] [id number] Glucose [Mass/Vol] 76 mg/dL Normal 65-99 [facility] Mobile Sales Technician Comment on above: Result Comment: For FASTING Glucose --- ADA reference ranges: Normal 65-99 mg/dl Prediabetes 100-125 Diabetes >/= 126 Performed By: #### L IPD, CBC, CMP #### [facility] [address], [place] [id number] Potassium [Moles/Vol] 4.7 mmol/L Normal 3.5-5.5 [facility] Specialist Comment on above: Result Comment: Spec imen is hemolyzed. Results may be affected. Performed By: #### L IPD, CBC, CMP #### [facility] [address], [place] [id number] Protein [Mass/Vol] 6.7 g/dL Normal 6.1-8.1 [facility] Mobile Sales Technician Comment on above: Performed By: #### L IPD, CBC, CMP #### [facility] [address], [place] [id number] Sodium [Moles/Vol] 139 mmol/L Normal 135-146 [facility] Comment on above: Performed By: #### L IPD, CBC, CMP #### [facility] [address], [place] [id number] Urea nitrogen [Mass/Vol] 11 mg/dL Normal 7-25 [facility] Mobile Sales Technician Comment on above: Performed By: #### L IPD, CBC, CMP #### [facility] [address], [place] [id number] Lipid Panelon 08-07-2021 Cholesterol [Mass/Vol] 154 mg/dL Normal 125-200 No [facility] Comment on above: Result Comment: Low risk < 200mg/dL Borderline risk 201-239 mg/dl High risk > or equal to 240 Performed By: #### L IPD, CBC, CMP #### [facility] [address], [place] [id number] Cholesterol in HDL [Mass/Vol] 40 mg/dL Low >40 [facility] Comment on above: Result Comment: High Cardiovascular Risk HDL <40 mg/dL Low Cardiovascular Risk HDL > or equal to 60 mg/dl Performed By: #### L IPD, CBC, CMP #### [facility] [address], [place] [id number] Cholesterol in LDL [Mass/Vol] 88 mg/dL Normal [facility] Comment on above: Result Comment: LDL ATP III CLASSIFICATION LDL less than 100 mg/dl Optimal LDL 100-129 mg/dl Near or above optimal LDL 130-159 Borderline high LDL 160-189 High LDL greater than 189 mg/dl Very High Performed By: #### L IPD, CBC, CMP #### [facility] [address], [place] [id number] Cholesterol in VLDL [Mass/Vol] 26 mg/dL Normal [facility] Comment on above: Performed By: #### L IPD, CBC, CMP #### [facility] [address], [place] [id number] Cholesterol.total/Choles terol in HDL [Mass ratio] 4 {ratio} Normal [facility] Comment on above: Performed By: #### L IPD, CBC, CMP #### [facility] [address], [place] [id number] Triglyceride [Mass/Vol] 129 mg/dL Normal 30-150 [facility] Comment on above: Result Comment: TRIG ATPIII CLASSIFICATIONS TRIG less than 150 mg/dl Normal TRIG 150-199 mg/dl Borderline High TRIG 200-500 mg/dl High TRIG greather than 500 mg/dl Very High Performed By: #### L IPD, CBC, CMP #### [facility] [address], [place] [id number] NR MR L-SPINE WO/W CONTRASTo n 01-13-2019 NR MR L-SPINE WO/W CONTRAST Patient Name: LUÍS CALHOUN STUDY: MR L-SPINE WO/W CONTRAST; 01/13/2019 10:05 am INDICATION: Radiculopathy, lumbar region. History of laminectomy. Right leg pain and numbness. COMPARISON: None. ACCESSION NUMBER(S): [id number] ORDERING CLINICIAN: ADELITA HENRY TECHNIQUE: Multisequential MR [...] Electronically signed by: BJ MUNGUIA MD Normal [facility] XR LUMBAR SPINE (MIN 4 VIEWS )on 12-17-2018 XR LUMBAR SPINE (MIN 4 VIEWS) Radiology exam is complete. No Radiologist dictation. Please follow up with ordering provider. Final result Normal [facility] Radiology exam is complete. No Radiologist dictation. Please follow up with ordering provider. [facility] [place], [place] Established Visit (Otolaryng ology)on 03-02-2018 Established Visit (Otolaryngology) Chief ComplaintNew patient suspected cholesteatoma History of Present IllnessHere today for mastoid bowl cleaning and follow up. Denies any interval otologic complaints since last being seen. Recall: 37 year old male referred by Dr. Head. [place] was a child in [place] had a chronically draining ear and underwent [...] you through your ENT care at [facility].Dr. Chicas is an Ear surgeon. This means that he specializes in taking care of patients with complex ear problems.Dr. Chicas's office number is [phone]. While you may see him at a satellite office, she has a team committed to help meet your healthcare needs at [facility]'s main campus. This number is the most direct way to communicate with the office.Audra is Dr. Padilla marketing secretary and she answers the office phone [...] may include dieticians, social workers, speech therapists, volunteer manager, neurologist, and physical therapist. Dr. Chicas will provide these referrals as needed. Please let him know if you would like to request a specific referral.For your convenience, Dr. Chicas sees patients at several [facility] locations including [facility], [facility], and [facility]. While we try to make your [...] Mar 02 2018 2:05PM EST (Author) Normal [facility] Initial Visit (Otolaryngolog y)on 09-29-2017 Initial Visit (Otolaryngology) Chief ComplaintNew patient suspected cholesteatoma History of Present [age]mg[age]jv18 year old male referred by Dr. Head. When he was a child in [place] had a chronically draining ear and underwent [...] AM Vitals Vital Signs Recorded: 29Sep2017 11:23AMHeart [id number] lbsdx98Ubulei7 ft 2 aiEjjjqn981 lb BMI Dmykhdsgdv29.65BSA Calculated2.59 Physical ExamCONSTITUTIONAL: No acute distressVOICE: No [...] you through your ENT care at [facility].Dr. Chicas is an Ear surgeon. This means that he specializes in taking care of patients with complex ear problems.Dr. Chicas's office number is [phone]. While you may see him at a satellite office, she has a team committed to help meet your healthcare needs at [facility]'s main campus. This number is the most direct way to communicate with the office.Audra is Dr. Padilla marketing secretary and she answers the office phone [...] may include dieticians, social workers, speech therapists, volunteer manager, neurologist, and physical therapist. Dr. Chicas will provide these referrals as needed. Please let him know if you would like to request a specific referral.For your convenience, Dr. Chicas sees patients at several [facility] locations including [facility], [facility], and [facility]. While we try to make your [...] ACTIVE -Retrospective By Protocol Authorization Ordered Normal [email or web address] Vital Signs Date Time Vital Sign Value Performing Clinician Raheem leigh 06-15-2024 15:36-0500 Body height 188 cm Al Marin DO Work Phone: [facility] 06-15-2024 15:36-0500 Body mass index (BMI) [Ratio] 36.59 kg/m2 Al Marin DO Work Phone: [facility] 06-15-2024 15:36-0500 Body weight 129.28 kg Al Marin DO Work Phone: [facility] 04-05-2024 07:58-0500 Body height 188 cm Adelita Epperson MD Work Phone: [facility] 04-05-2024 07:58-0500 Body mass index (BMI) [Ratio] 36.59 kg/m2 Adelita Epperson MD Work Phone: [facility] 04-05-2024 07:58-0500 Body weight 129.28 kg Adelita Epperson MD Work Phone: [facility] 04-05-2024 07:58-0500 Diastolic blood pressure 60 mm[Hg] Adelita Epperson MD Work Phone: [facility] 04-05-2024 07:58-0500 Heart rate 90 /min Adelita Epperson MD Work Phone: [facility] 04-05-2024 07:58-0500 SaO2% (BldA) [Mass fraction] 98 % Adelita Epperson MD Work Phone: [facility] 04-05-2024 07:58-0500 Systolic blood pressure 126 mm[Hg] Adelita pEperson MD Work Phone: [facility] Healthcare Encounters Encounter Date Encounter Type Care Provider Facility Start: 06-15-2024 End: 06-15-2024 Office outpatient visit 15 minutes Al Marin DO Work Phone: [facility] [place] Comment on above: History of cholestea shayla (Primary Dx); Chronic mastoiditis of left side; Hearing loss of left ear, unspecified hearing loss type Start: 06-15-2024 End: 06-15-2024 ambulatory AL MARIN Not Available Start: 05-30-2024 End: 05-31-2024 Refill Adelita Epperson MD Work Phone: [facility] Comment on above: Obesity (BMI 30-39.9 ) Start: 04-23-2024 End: 04-23-2024 ambulatory JORGITO R RISALITI Not Available Start: 04-07-2024 End: 04-08-2024 Refill Adelita Epperson MD Work Phone: [facility] Comment on above: Obesity (BMI 30-39.9 ) Start: 04-05-2024 End: 04-05-2024 Office outpatient visit 25 minutes Adelita Epperson MD Work Phone: [facility] Comment on above: Osteoarthritis of sp ine with radiculopathy, lumbosacral region (Primary Dx); Severe obesity (BMI 35.0-39.9) with comorbidity (CMS/HCC); BMI 36.0-36.9,adult; Palpitations; Family history of early CAD; Cigarette nicotine dependence without complication; Annual physical exam; Medication management Start: 04-05-2024 End: 04-05-2024 Patient encounter procedure Adelita Epperson MD Work Phone: [facility] Start: 04-05-2024 End: 04-05-2024 ambulatory ADELITA EPPERSON Not Available Start: 03-24-2024 End: 03-24-2024 Refill Adelita Epperson MD Work Phone: [facility] Comment on above: Obesity (BMI 30-39.9 ) Start: 03-15-2024 End: 03-15-2024 ambulatory Laura Luevano MD Facility:[facility] Start: 03-02-2024 End: 03-02-2024 Orders Only Adeliat Epperson MD Work Phone: [facility] Comment on above: Lumbar paraspinal mu scle spasm (Primary Dx); Lumbar radiculopathy Start: 02-10-2024 End: 02-11-2024 Refill Jorgito Chirinos [employer] Work Phone: [facility] Comment on above: Obesity (BMI 30-39.9 ) Start: 01-13-2024 End: 01-13-2024 Refill Adelita Epperson MD Work Phone: [facility] Comment on above: Obesity (BMI 30-39.9 ) Start: 01-05-2024 End: 01-05-2024 ambulatory Laura Luevano MD Facility:[facility] Start: 12-09-2023 End: 12-09-2023 ambulatory AL S BILIONELENBACH Not Available Start: 11-25-2023 End: 11-25-2023 ambulatory AL S BIEDENBACH Not Available Start: 11-12-2023 End: 11-12-2023 ambulatory HANS LORD Not Available Start: 10-07-2023 End: 10-07-2023 ambulatory ADELITA EPPERSON Not Available Start: 09-11-2023 End: 09-11-2023 ambulatory AL S TIMOTHYBACH Not Available Start: 09-03-2023 End: 09-03-2023 ambulatory Manjinder Lynn Jr Facility:[facility] Start: 09-03-2023 End: 09-03-2023 ambulatory MD Adelita Epperson Work Phone: [facility] Work Phone: Start: 09-03-2023 End: 09-03-2023 Departed Referred MD Adelita Epperson Work Phone: [facility] [address] Work Phone: Start: 07-14-2023 End: 07-14-2023 ambulatory ADELITA EPPERSON Not Available Start: 06-24-2023 End: 06-24-2023 ambulatory TONYA ESTRELLA Not Available Start: 06-03-2023 Telephone encounter Laurie cameron [employer] Work Phone: [facility] Start: 09-05-[address] ADELITA EPPERSON Facility :[facility] Start: 08-06-2022 End: 08-06-2022 ambulatory NARENDRANATH LAKSHMIPATHY . Facility:[facility] Start: 07-23-2022 End: 07-24-2022 ambulatory NARENDRANATH LAKSHMIPATHY . Facility:[facility] Start: 03-28-2022 End: 03-29-2022 ambulatory SEAN WELLS . Facility:[facility] Start: 01-03-2022 End: 01-04-2022 ambulatory SEAN WELLS . Facility:[facility] Start: 10-04-2021 End: 10-05-2021 ambulatory SEAN WELLS . Facility:[facility] Start: 04-10-2020 End: 04-10-2020 Patient encounter procedure Adelita Epperson [facility] [place] Start: 12-17-2018 End: 12-20-2018 Patient encounter procedure ADELITA EPPERSON [facility] Start: 12-17-2018 End: 12-19-2018 Subsequent hospital visit by physician [facility] Comment on above: Low back [...] Treatment Date Care Activity Detail Author Start: 06-21-2025 End: 06-21-2025 Patient encounter procedure 06/21/2025 3:45 PM EST Office Visit [facility] [address] [place] [phone] Al Marin, DO [address] [place] [address] [facility] Start: 10-11-2024 End: 10-11-2024 Patient encounter procedure 10/11/2024 8:15 AM EDT Office Visit [facility] [address] [place] [phone] Adelita Epperson MD [address] [place] [address] [facility] Start: 07-12-2024 End: 07-12-2024 Patient encounter procedure 07/12/2024 8:45 AM EDT Office Visit [facility] [address] [place] [phone] Adelita Epperson MD [address] [place] [address] [facility] Start: 06-15-2024 End: 06-15-2024 Patient encounter procedure 06/15/2024 3:45 PM EST Office Visit [facility] [address] [place] [phone] Al Marin, DO [address] [place] [address] [facility] Start: 05-31-2024 Influenza vaccination Influenza Vacc ine (#1) [facility] Comment on above: Postponed from 12/27 (Patient Refused) Start: 04-05-2024 End: 04-05-2024 Patient encounter procedure 04/05/2024 8:15 AM EST Office Visit [facility] [address] [place] [phone] Adelita Epperson MD [address] [place] [address] [facility] Start: 03-11-2024 End: 03-11-2024 Patient encounter procedure 03/11/2024 3:15 PM EST Office Visit [facility] [address] [place] [phone] Al Marin, DO [address] [place] [address] [facility] [place] Start: 03-02-2024 End: 03-02-2024 ambulatory 03/02/2024 10:30 AM EST Evaluation [facility] [address] [place] [phone] Antonio Solomon, PT [address] [place] [phone] [facility] Start: 12-28-2023 Influenza vaccination Influenza Vacc ine (#1) [facility] Start: 08-26-2023 End: 08-26-2023 Patient encounter procedure 08/26/2023 3:45 PM EDT Office Visit [facility] [address] [place] [phone] Al Marin, DO [address] [place] [address] [facility] [place] Start: 07-14-2023 End: 07-14-2023 Patient encounter procedure 07/14/2023 8:45 AM EDT Office Visit [facility] [address] [place] [phone] Adelita Epperson MD [address] [place] [address] [facility] Start: 06-23-2023 End: 06-23-2023 Patient encounter procedure 06/23/2023 8:00 AM EST Office Visit [facility] [address] [place] [phone] Laurie Haley, P[employer] MAKER [address] [place] [address] [facility] Start: 06-16-2023 End: 06-16-2023 ambulatory 06/16/2023 4:15 PM EST Treatment [facility] [address] [facility] [place] [address] Antonio Solomon, PT [address] [facility] [place] [phone] [facility] PT Start: 06-09-2023 End: 06-09-2023 ambulatory 06/09/2023 4:30 PM EST Treatment [facility] [address] [facility] [place] [address] Antonio Solomon, PT [address] [place] [address] [facility] PT Start: 06-04-2023 End: 06-04-2024 MR Lumbar spine WO contrast MR lumbar spine wo contrast Imaging Routine DDD (degenerative disc disease), lumbar Lumbar herniated disc Expected: 06/04/2023 (Approximate), Expires: 06/04/2024 [facility] Work Phone: Comment on above: Expected: 06/04/2023 (Approximate), Expires: 06/04/2024 Start: 12-27-2022 Influenza vaccination Influenza Vacc ine (#1) [facility] Start: 12-27-2018 Influenza vaccination Flu vaccine (# 1) [place], [place] Start: 1999 DTaP/Tdap/Td vaccine (1 - Tdap) DTaP/Tdap/Td vaccine (1 - Tdap) [place], [place] Start: 1995 HIV screen HIV screen [place], [place] Start: 1993 Varicella Vaccine (1 of 2 - 13+ 2-dose series) Varicella Vaccine (1 of 2 - 13+ 2-dose series) [place], [place] Start: 1986 Pneumococcal 0-64 ye ars Vaccine (1 of 1 - PPSV23) Pneumococcal 0-64 years Vaccine (1 of 1 - PPSV23) [place], [place] Basic metabolic 1998 panel - Serum or Plasma Basic metabolic panel Lab Routine Annual physical exam Medication management Ordered: 04/05/2024 [facility] Work Phone: Comment on above: Ordered: 04/05/2024 CBC W Auto Different ial panel - Blood CBC and differential Lab Routine Annual physical exam Ordered: 04/05/2024 [facility] Comment on above: Ordered: 04/05/2024 Hepatic function 200 0 panel - Serum or Plasma Hepatic function panel Lab Routine Medication management Ordered: 04/05/2024 [facility] Comment on above: Ordered: 04/05/2024 Lipid 1996 panel - Serum or Plasma Lipid panel Lab Routine Severe obesity (BMI 35.0-39.9) with comorbidity (CMS/HCC) Annual physical exam Ordered: 04/05/2024 [facility] Comment on above: Ordered: 04/05/2024 Payers Date Payer Category Payer Self-pay [id number] 2020 [facility] BCBS [id number] 2020 Unknown [id number] .[id number] 2017 Private Health Insurance [id number] 2017 Private Health Insurance [employer] xxxxxxxxxx 2017-Present [phone] [facility] [address] [place] [address] xxxxxxxxxx [id number] .[id number] 1980 Unknown [id number] 2.16.840.1.198719.3.579.2 .356 1980 Unknown [id number] 2.16.840.1.230519.3.579.2 .356 1980 Unknown [id number] 2.16.840.1.036611.3.579.2 .356 1980 Unknown [id number] 2.16.840.1.559375.3.579.2 .185 1980 Unknown [id number] 2.16.840.1.557513.3.579.2 .593 1980 Unknown [id number] 2.16.840.1.455109.3.579.2 .593 1980 Unknown [id number] 2.16.840.1.054280.3.579.2 .593 1980 Unknown [id number] 2.16.840.1.669346.3.579.2 .593 1980 Unknown [id number] 2.16.840.1.203940.3.579.2 .593 1980 Unknown [id number] 2.16.840.1.883149.3.579.2 .593 1980 Unknown [id number] 2.16.840.1.506640.3.579.2 .196 1980 Unknown [id number] 2.16.840.1.935469.3.579.2 .196 1980 Unknown [id number] 2.16.840.1.737437.3.579.2 .9 1980 Unknown [id number] 2.16.840.1.620264.3.579.2 .1258 1980 Unknown [id number] 2.16.840.1.709814.3.579.2 .1258 1980 Unknown [id number] 2.16.840.1.249824.3.579.2 .1258 1980 Unknown [id number] 2.16.840.1.434900.3.579.2 .1258 1980 Unknown [id number] 2.16.840.1.789733.3.579.2 .1258 1980 Unknown [id number] 2.16.840.1.232933.3.579.2 .1258 1980 Unknown [id number] 2.16.840.1.297654.3.579.2 .1258 1980 Unknown [id number] 2.16.840.1.834591.3.579.2 .1258 1980 Unknown [id number] 2.16.840.1.567669.3.579.2 .1258 1980 Unknown [id number] 2.16.840.1.023014.3.579.2 .9 1959 Unknown [id number] Unknown [id number] 2.16.840.1.115267.3.579.2 .531 Social History Date Type Detail Facility Start: 04-28-1993 End: 10-07-2023 Tobacco smoking status DEIS Current every day smoker [place] Start: 01-16-2018 End: 04-05-2024 Alcohol intake No [place] Sex Assigned At Not on file [place] Start: 1980 Sex Assigned At Male [facility] Start: 04-28-1993 History of tobacco use Cigarette Smo ker [facility] Start: 02-25-2023 End: 04-05-2024 Cigarettes smoked current (pack per day) - Reported 0.5 [facility] Start: 02-25-2023 End: 10-07-2023 Tobacco use and exposure Smokeless tobacco non-user [facility] Start: 05-05-2023 End: 06-15-2024 Alcohol intake Lifetime non-drinker (finding) [facility] [...] Desired Activity /State Clinical Notes 10-04-2021 to 06-15-2024 Al Marin, - 06/15/2024 3:45 PM Rasheeda Epperson MD - 04/05/2024 8:15 AM ESTTelephone Encounter - Nelli Rico LPN - 03/24/2024 7:51 AM EST Note Date & Type Note Facility 06-15-2024 History of Presen t illness Narrative Subjective Patient ID: Luís Calhoun is a 44 y.o. male who presents for Mastoid Cleaning HPI This patient presents for recheck of right acute otitis media and externa. Patient describes resolution of his symptoms with pain and drainage. Continues to have decreased hearing on the left side compared to the right. No drainage from the left ear. Review of Systems Patient is no longer having discomfort in his right ear. Not currently having any drainage. No recent hearing change The rest of his review of systems is unchanged. Objective ENT Physical Exam General Examination: General overview: Normal, age-appropriate, no evidence of distress Head: Normocephalic, atraumatic Eyes: Pupils are equally round and reactive to light and accommodation, extraocular muscles are intact Ears: External ear architecture is normal. Binocular microscopy was utilized for evaluation of the right ear. The inflammatory condition is resolved. No evidence of infection or drainage. On the left, tympanic membrane is intact. The mastoid cavity reveals no evidence of inflammation. Copious epithelium and cerumen removed using extensive instrumentation and suction Nose: External nose unremarkable, nares patent, septum intact, no evidence of congestion. Oral cavity: Mucosa moist, no evidence of ulcer, mass, or lesion Throat: Clear Neck/thyroid: Neck supple, full range of motion, no cervical lymphadenopathy, no evidence of thyromegaly Lymph nodes: No cervical lymphadenopathy Skin: Warm and dry, no evidence of suspicious lesions, no rash Heart: No jugular venous distention, point of maximal impulse normal Lungs: Good air movement, no audible wheezing, no shortness of breath Chest: Normal shape and expansion Abdomen: Normal, soft, nontender, nondistended Musculoskeletal: Cervical spine normal, full range of motion Extremities: No clubbing, cyanosis, or edema Peripheral pulses: 2+ radial, 2+ carotid Neurologic: Alert and oriented, cranial nerves 2-12 are grossly intact Psych: Alert and oriented, normal affect, no evidence of distress Assessment/Plan Diagnoses and all orders for this visit: History of cholesteatoma Comments: No evidence of recurrence Chronic mastoiditis of left side Comments: Left mastoid cavity care completed, recheck 1 year Hearing loss of left ear, unspecified hearing loss type Comments: Currently stable, recommend repeat audiogram in 1 year documented in this encounter [facility] 04-05-2024 History of Presen t illness Narrative Images from the original note were not included. Luís Calhoun is a 43 y.o. male presents with chief complaint of 6 Month Follow-up (He did not have lab drawn prior to appointment, order reprinted. /He is feeling good. ) HPI: History of Present Illness Patient presents today for follow up of chronic medical problems. He reports a positive response to Adipex, with his weight decreasing from 305 lbs in 08/2023 to 279 lbs as of last Friday. He is due to collect a refill of Adipex today. He has also reduced his consumption of Monster energy drinks to two per day and is making efforts to quit. His physical activity is primarily derived from his work. He monitors his blood pressure at home, which typically ranges between 120 to 135 systolic and 40 to 60 diastolic. He reports no chest pain or breathing difficulties. He has noticed that his blood pressure tends to rise during doctor's visits. He experiences occasional palpitations, described as a hard thump, once or twice a month, lasting for about 4 seconds. These episodes do not cause him to feel breathless or as if his heart is skipping beats. He does not experience any chest pressure or discomfort during physical exertion. He has stopped consuming soda and now drinks water at work. He reports no changes in his bowel movements. He is getting injections every 6 to 7 months for his back and is interested in disc replacement surgery. SOCIAL HISTORY He is planning to quit smoking by the end of 04/2024. I have reviewed and reconciled the history and medication list with the patient today. HISTORIES: PAST MEDICAL HISTORY: Past Medical History: Diagnosis Date Conductive hearing loss of left ear with unrestricted hearing of right ear Displacement of lumbar intervertebral disc without myelopathy 01/24/2010 Headache History of degenerative disc disease Laryngopharyngeal reflux (LPR) 02/24/2023 Lumbar radiculopathy 02/24/2023 Lumbosacral spondylosis Lumbosacral spondylosis without myelopathy 04/30/2016 Lymphedema 10/08/2018 Migraine (CMS/[facility]) Obesity (BMI 30-39.9) 02/24/2023 SURGICAL HISTORY: Past Surgical History: Procedure Laterality Date EPIDURAL BLOCK INJECTION 03/28/[address] Tom Love LUMBAR EPIDURAL INJECTION 2016 OTHER SURGICAL HISTORY 1986 Ear Surgery RADIOFREQUENCY ABLATION 2019 SPINE SURGERY 02/03/2018 LASER TYMPANOPLASTY 2013 SOCIAL HISTORY: Social History Tobacco Use Smoking status: Every Day Current packs/day: 0.50 Average packs/day: 0.5 packs/day for 30.9 years (15.5 ttl pk-yrs) Types: Cigarettes Start date: 04/28/1993 Smokeless tobacco: Never Vaping Use Vaping status: Never Used Substance Use Topics Alcohol use: Never Comment: caffeine:Type: energy drink 1-- 16 0z can per day Drug use: Never Depression: Not at risk (04/05/2024) PHQ-2 PHQ-2 Score: 0 FAMILY HISTORY: Family History Problem Relation Name Age of Onset Diabetes Father ray Heart attack Father ray 40 Heart disease Father ray MEDICATIONS: Current Outpatient Medications Medication Instructions baclofen (Lioresal) 10 MG tablet 1 tablet, 2 times daily Cannabinoids (medical cannabis) Medicinal Marijuana ibuprofen 800 mg, Every 6 hours PRN phentermine (ADIPEX-P) 37.5 mg, Oral, Daily before breakfast ALLERGIES: No Known Allergies PHYSICAL EXAM: Visit Vitals BP 126/60 Pulse 90 Ht 6' 2 Wt 285 lb SpO2 98% BMI 36.59 kg/m Smoking Status Every Day BSA 2.6 m BP Readings from Last 3 Encounters: 04/05/24 126/60 11/12/23 (!) 138/92 10/07/23 116/74 Wt Readings from Last 3 Encounters: 04/05/24 285 lb 12/09/23 285 lb 11/25/23 285 lb Physical Exam Vitals reviewed. Constitutional: General: He is not in acute distress. Appearance: Normal appearance. HENT: Right Ear: Tympanic membrane, ear canal and external ear normal. Left Ear: Tympanic membrane, ear canal and external ear normal. Mouth/Throat: Mouth: Mucous membranes are moist. Pharynx: Oropharynx is clear. Neck: Vascular: No carotid bruit. Cardiovascular: Rate and Rhythm: Normal rate and regular rhythm. Heart sounds: No murmur heard. No friction rub. Pulmonary: Breath sounds: Normal breath sounds. No wheezing or rhonchi. Abdominal: General: There is no distension. Tenderness: There is no abdominal tenderness. Musculoskeletal: Cervical back: Neck supple. Right lower leg: No edema. Left lower leg: No edema. Lymphadenopathy: Cervical: No cervical adenopathy. Skin: General: Skin is warm and dry. Neurological: General: No focal deficit present. Mental Status: He is alert. Psychiatric: Mood and Affect: Mood normal. Results ASSESSMENT AND PLAN: Assessment & Plan 1. Osteoarthritis of spine with radiculopathy, lumbosacral region (Primary) Doing well. Continue current regimen. 2. Severe obesity (BMI 35.0-39.9) with comorbidity (CMS/HCC) He has lost weight, going from 305 lbs in August to 279 lbs on his home scale and 285 lbs on the office scale. He is currently taking Adipex and reports it is working well. He was advised to engage in weight or resistance training at least three days a week. A new order for labs will be placed. - Lipid panel 3. BMI 36.0-36.9,adult As above. 4. Palpitations The palpitations he experiences could be attributed to premature ventricular contractions (PVCs) or excessive caffeine intake. He was advised to reduce his caffeine intake, particularly from energy drinks like Monster. If the severity of his palpitations increases or if he experiences chest pressure, pain, or shortness of breath, he should inform the office immediately for further testing. 4. Family history of early CAD Doing well. Continue aggressive risk factor modification. 5. Cigarette nicotine dependence without complication He plans to quit smoking by the end of April in preparation for the arrival of his baby in July. He has already reduced his smoking to two cigarettes a day. He was encouraged to continue with his plan to quit smoking completely. 6. Annual physical exam - Basic metabolic panel - Lipid panel - CBC and differential 7. Medication management - Basic metabolic panel - Hepatic function panel documented in this encounter [facility] 03-24-2024 Telephone encount er Note Pt requesting a refill on Adipex to [facility] in [place] [facility] 03-24-2024 Miscellaneous Notes Formattin g of this note might be different from the original. Pt requesting a refill on Adipex to [facility] in [place] documented in this encounter [facility] 06-03-2023 Telephone encount er Note Pt called back and would like to do MRI at [facility]. [facility] 06-03-2023 Miscellaneous Notes Formattin g of this note might be different from the original. Pt called back and would like to do MRI at [facility]. documented in this encounter [facility] 07-23-2022 Note PAIN MANAGEMENT CONS ULTATION CONSULTATION DATE: 07/23/2022 ADDENDUM: The dictation mentions denervation of the L4-5, L5-S1 facet joint under fluoroscopic guidance by using radiofrequency ablation on the left side. The dictation should read: Proceed with radiofrequency ablation of the L2-3, L4-5 levels under fluoroscopic guidance on the left side. [facility] 07-23-2022 Note PAIN MANAGEMENT CONS ULTATION CONSULTATION DATE: 07/23/2022 ADDENDUM: The dictation mentions denervation of the L4-5, L5-S1 facet joint under fluoroscopic guidance by using radiofrequency ablation on the left side. The dictation should read: Proceeded with radiofrequency ablation of the L2-3, L4-5 levels under fluoroscopic guidance on the left side. [facility] 07-23-2022 Note CONSULTATION CONSULTATION DATE: 07/23/2022 [...] to proceed with the outlined plan. [facility] 03-28-2022 Note CONSULTATION CONSULTATION DATE: 03/28/2022 [...] consistent with his stretches and has a maitre d workload at work. He reports 0/10 pain [...] in six months' time for re-evaluation. [facility] 01-03-2022 Note CONSULTATION CONSULTATION DATE: 01/03/2022 [...] three months' time, unless otherwise indicated. [facility] 10-04-2021 Note CONSULTATION CONSULTATION DATE: 10/04/2021 [...] gluconate 800 mg q.h.s. in addition to [id number] ibuprofen 600 mg q.a.m. before work. Daily stretching and the use of heat were encouraged to aid with the spasms. We discussed about different vitamin regimens and the patient was willing to try. He will be followed up in the clinic in three months' time unless otherwise indicated. The patient agrees with the plan of care. [facility] Signed and Approved by: SEAN WELLS . 10/11/2021 16:03:00 [facility] Evaluation note Diagnosis DDD (degenerative disc disease), lumbar- Primary Degeneration of lumbar or lumbosacral intervertebral disc Lumbar herniated disc documented in this encounter [facility] HealthcareEvaluation noteNo assessment information availableKind[facility] Work Phone: Evaluation note* Diagnosis Obesity (BMI 30-39.9) documented in this encounter [facility] HealthcareEvaluation note* Diagnosis Lumbar paraspinal muscle spasm- Primary Other symptoms referable to back Lumbar radiculopathy Thoracic or lumbosacral neuritis or radiculitis, unspecified documented [facility] encounter [facility]* Diagnosis Lumbar paraspinal muscle spasm- Primary Other symptoms referable to back Lumbar radiculopathy Thoracic or lumbosacral neuritis or radiculitis, unspecified documented [facility] encounter [facility]* Diagnosis Obesity (BMI 30-39.9) documented [facility]* Diagnosis Osteoarthritis of spine with radiculopathy, lumbosacral region- Primary Severe obesity (BMI 35.0-39.9) with comorbidity (CMS/[facility]) BMI 36.0-36.9,adult Palpitations Family history of early CAD Family history of ischemic heart disease Cigarette nicotine dependence without complication Annual physical exam Routine general medical examination at a health care facility Medication management documented in this encounter [facility]* Diagnosis Obesity (BMI 30-39.9) documented [facility] encounter [facility]* Diagnosis History of cholesteatoma- Primary Chronic mastoiditis of left side Hearing loss of left ear, unspecified hearing loss type documented [facility] this [facility] N[facility]* Rehabilitation - Outpatient (Routine) - Authorized Specialty Diagnoses / Procedures Referred By Contac t Referred To Contact Physical Therapy Diagnoses Lumbar paraspinal muscle spasm Lumbar radiculopathy Procedures [place] OFFICE/OUTPATIENT NEW HIGH MDM 60 MINUTES Adelita Epperson MD [address] [place] [address] Phone: tel: fax: Antonio Solomon, PT [address] [place] [address] Phone: tel: fax: Referral ID Status Reason Start Date Expiration Date Visits Requested Visits Authorized [id number] Authorized Consult and Treat 03/02/2024 08/29/2024 53 53 [facility] Summary Purpose Family History No Family History Records FoundNo Family History Records FoundNo Family History Records FoundNo Family History Records FoundNo Family History Records FoundNo Family History Records FoundNo Family History Records FoundNo Family History Records FoundNo Family History Records Found Advance Directives Documents on File Type Date Recorded 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 [employer] Advance Directives and Living Will 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 Quantitative 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 Engineer Advance Directive Response Recorded Date/ Time Advance [...] disc Procedures MR lumbar spine wo contrast Laurie Haley NP [address] [facility] [address] [place] [address] Referral ID Status Reason Start Date Expiration Date V isits Requested Visits Authorized [id number] Pending Review 06/04/2023 12/01/2023 1 1 Additional Source Comments (unrecognized sect ion and content) No Status Records FoundNo Status Records FoundNo Status Records FoundNo Status Records FoundNo Status Records FoundNo Status Records FoundNo Status Records FoundNo Status Records FoundNo Status Records Found INFORMATION SOURCE (unrecogn ized section and content) DATE CREATED AUTHOR 04/05/2018 [facility] DATE CREATED AUTHOR AUTHOR'S ORGANIZ ATION 04/05/2018 [facility] DATE CREATED AUTHOR AUTHOR'S ORGANIZ ATION 12/20/2018 [facility] DATE CREATED AUTHOR AUTHOR'S ORGANIZ ATION 01/31/2019 [facility] DATE CREATED AUTHOR AUTHOR'S ORGANIZ ATION 08/08/2021 [facility] DATE CREATED AUTHOR AUTHOR'S ORGANIZ ATION 08/09/2022 [facility] DATE CREATED AUTHOR AUTHOR'S ORGANIZ ATION 09/04/2023 [facility] DATE CREATED AUTHOR AUTHOR'S ORGANIZ ATION 03/20/2024 [facility] DATE CREATED AUTHOR AUTHOR'S ORGANIZ ATION 06/17/2024 [facility] dical Specialists EPIC Care Teams (unrecognized sec tion and content) Patient Assessment Coordinator Relationship Specialty Start Date End Date Adelita Epperson MD [address] [place] [address] PCP - General Internal Medicine 11/06/22 Team Status: Active Member Role Status Dates Adelita Epperson MD Primary Care Provider Active Team Status: Inactive Member Role Status Dates Adelita Epperson MD Primary Care Provider Active St art: September 03, 2023 End: September 03, 2023 Manjinder Lynn Jr, DO Attending Provider Active S tart: September 03, 2023 End: September 03, 2023 Patient Assessment Coordinator Relationship Specialty Start Date End Date Adelita Epperson MD [address] [place] [address] PCP - General Internal Medicine 11/06/22 Adelita Epperson MD [address] [place] [address] PCP - [employer] 06/27/23 Patient Assessment Coordinator Relationship Specialty Start Date End Date Adelita Epperson MD [address] [place] [address] PCP - General Internal Medicine 11/06/22 Adelita Epperson MD [address] [place] [address] PCP - [employer] 06/27/23 Patient Assessment Coordinator Relationship Specialty Start Date End Date Adelita Epperson MD [address] [place] [address] PCP - General Internal Medicine 11/06/22 Adelita Epperson MD [address] [place] [address] PCP - [employer] 06/27/23 Patient Assessment Coordinator Relationship Specialty Start Date End Date Adelita Epperson MD [address] [place] [address] PCP - General Internal Medicine 11/06/22 Aedlita Epperson MD [address] [place] [address] PCP - [employer] 06/27/23 Patient Assessment Coordinator Relationship Specialty Start Date End Date Adelita Epperson MD [address] [place] [address] PCP - General Internal Medicine 11/06/22 Adelita Epperson MD [address] [place] [address] PCP - [employer] 06/27/23 Patient Assessment Coordinator Relationship Specialty Start Date End Date Adelita Epperson MD [address] [place] [address] PCP - General Internal Medicine 11/06/22 Adelita Epperson MD [address] [place] [address] PCP - [employer] 06/27/23 Goals (unrecognized section and content) Goals may be documented in a n alternate section Reason for Visit (unrecogniz ed section and content) Reason Onset Date Comments Med Refill 02/10/2024 Reason Onset Date Comments Med Refill 03/24/2024 Reason Comments 6 Month Follow-up He did not have lab drawn prior to appointment, order reprinted. He is feeling good. Reason Onset Date Comments Med Refill 01/13/2024 Reason Onset Date Comments Med Refill 04/07/2024 Reason Onset Date Comments Med Refill 05/30/2024 Reason Comments Mastoid Cleaning FOR RECORDS PERTAINING TO PATIENTS WHO ARE [...] BE BASED ON THE PRIMARY CLINICAL RECORDS. [employer] [facility]. provides no warranty or guarantee of the accuracy or completeness of information in this document.
--- NOTE | 2024-06-23 08:49 | PM.CN ---
Consult Note: HPI Data of Consult Patient: known to practice within the last 3 years Requesting Physician: Jeanette Castro NP Primary Care Provider: ADELITA EPPERSON Consult Narrative Reason for consult: f/u Narrative: Cas Calhoun a 44 year old male presents for evaluation and management of chronic low back pain secondary to lumbar spondylosis and lumbar stenosis as noted on prior MRI. pt has longstanding hx of back pain and BLE pain that has failed to benefit from greater than 6 weeks of PT and provider guided HEP, heat, ice, tylenol, motrin. continues to utilize baclofen with benefit. Pain today 6/10 increasing to 10/10 with standing, walking, working, activity. pain improved with tens and baclofen. previous right and left L4-5 L5-S1 TFESIs have provided >50% improvement in pain and functional ability greater than 3 months. cc:: CC: Jeanette Castro NP Review of Systems ROS Status of ROS 10 or more systems reviewed and unremarkable except as noted in history and below Musculoskeletal Reports: back pain and extremity pain PFSH PFSH Surgical History Hx of tonsillectomy ?Z90.89 - Acquired absence of other organs (ICD-10) History of tympanoplasty ?Z98.890 - Other specified postprocedural states (ICD-10) History of lumbar surgery ?Z98.890 - Other specified postprocedural states (ICD-10) Meds Home Medications and Allergies Home Medications ?Medication ?Instructions ?Recorded ?Confirmed ?Type thc gummies PO .qhs 07/03/23 History baclofen 10 mg tablet 10 mg PO .qhs 12/16/23 03/15/24 History Allergies Allergy/AdvReac Type Severity Reaction Status Date / Time No Known Drug Allergies Allergy Verified 03/15/24 06:54 Exam Constitutional Vital Signs, click to edit/add: BP 178/111, checks BID at home per PCP Documenting provider has reviewed patient's vital signs: yes Common normals: no apparent distress, oriented x3, healthy appearing, alert and well nourished General appearance: cooperative [facility] Common normals: normocephalic, hearing grossly normal bilaterally and moist oral mucous membranes Head and scalp: normocephalic Eye Common normals: PERRL Pupil: PERRL Neck & C-Spine Common normals: full ROM General: normal visual inspection Chest Common normals: inspection of chest normal Respiratory Common normals: normal respiratory effort, no retractions and no use of accessory muscles Back & Pelvis Lumbar spine/lower back: ROM limited, pain with ROM and straight leg raise positive left Sacroiliac joints: SI joint(s) abnormal Other: decreased sensation to left L4,5,S1 strength 4/5 in LLE 5/5 in RLE left SIJ positive mario(patricks), gaenslens, thigh thrust, compression test positive lumbar facet loading bilaterally Neuro Common normals: oriented x3, CN's II-XII intact bilaterally, moves all extremities, no focal motor deficits, no sensory deficits noted and deep tendon reflexes 2+ bilaterally Sensorium/orientation: alert Motor exam: no movement abnormalities noted and strength abnormal Psych Common normals: mental status grossly normal, thought process normal, cooperative, affect normal, speech normal and activity/motor behavior normal Speech: normal speech Thought process: normal thought process Results Additional Findings Additional findings: If on a controlled substance or opioids, I have checked an [place]ARRS report on this patient and there are no aberrancies noted in the prescribing history.??If on a controlled substance or opioid a drug screen was completed and reviewed within the last year, and if there has not been a drug screen completed we ordered one today to monitor higher risk, state monitored pain medication use. As part of providing excellent, safe, comprehensive care, the following was completed at our patient's visit: 1. A medication reconciliation and review to ensure accurate knowledge of current/active medications, including asking our patients to inform us about any [id number]-[id number] medications or herbal remedies/nutritional supplements/alternative remedies. 2. A review to specifically ensure our patients have had annual screening for screening for depression, screening for tobacco use, and screening for unhealthy alcohol use. For concerning screenings had a discussion with the patient, provided patient education, and recommended follow-up with primary care provider when appropriate. If patient noted with a risk of falling, they received education on strength, gait, and balance training to prevent future risk of falling. Portions of this note may have been carried over from the previous visit and updated as appropriate. Please note this office utilizes paper charting in addition to the electronic medical record. A list of current medications, vitals, and PMH is available there as the clinical staff outside of myself do not have access to tibdit charting during the clinic day operations. As part of providing quality comprehensive care the current medications, vitals, and PMH were reviewed in the paper chart. Assessment and Plan Assessment and Plan (1) Lumbar stenosis with neurogenic claudication: (2) Sacroiliitis: (3) Lumbar spondylosis: (4) Asymptomatic hypertension: Plan repeat left L4-5 L5-S1 TFESI under fluoroscopy, previous injection provided >50% improvement for 3 months continue medications continue f/u with PCP for asymptomatic HTN, per PCP recommendation does log home BP twice daily and PCP is aware he consistently has BP > 150/110 without symptoms f/u 2 weeks after [facility]
== END 2024-06-23 08:22 | disposition home or self-care (01) ==
LOC: PM 08:22
PROVIDERS: PCP Internal Medicine; Visit Provider Nurse Practitioner
DX: M48.062 Spinal stenosis, lumbar region with neurogenic claudication (principal); M46.1 Sacroiliitis, not elsewhere classified; M47.816 Spondylosis without myelopathy or radiculopathy, lumbar region; R03.0 Elevated blood-pressure reading, without diagnosis of hypertension
CPT/HCPCS: G0463

== ENCOUNTER 2024-07-05 07:03 | Day surgery (SDC) | payer BC, SELFPAY ==
--- OUTSIDE RECORDS SUMMARY | 2024-07-05 07:06 | XMS_ITS | CCD ---
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] 04-05-2024 Episodic Other connective [...] 09-03-2023 ALT [Catalytic activity/Vol] 29 U/L 7-52 [facility] Albumin [Mass/volume] in Ser um or Plasma by Bromocresol green (BCG) dye binding methoOrdered By: Manjinder Lynn on 09-03-2023 Albumin BCG dye [Mass/Vol] 4.6 g/dL 3.5-5.7 [facility] Alkaline phosphatase [Enzyma tic activity/volume] in Serum or PlasmaOrdered By: Manjinder Lynn on 09-03-2023 ALP [Catalytic activity/Vol] 75 U/L 34-104 [facility] Aspartate aminotransferase [ Enzymatic activity/volume] in Serum or PlasmaOrdered By: Manjinder Lynn on 09-03-2023 AST [Catalytic activity/Vol] 20 U/L 13-39 [facility] Basophils Auto (Bld) [#/Vol] Ordered By: Manjinder Lynn on 09-03-2023 Basophils (Bld) [#/Vol] 0.1 10*3/uL 0.0-0.2 [facility] Basophils/100 WBC Auto (Bld) Ordered By: Manjinder Lynn on 09-03-2023 Basophils/100 WBC (Bld) 1.1 % . [facility] Bilirubin.total [Mass/volume ] in Serum or PlasmaOrdered By: Manjinder Lynn on 09-03-2023 Bilirubin [Mass/Vol] 1.3 mg/dL 0.3-1.0 [facility] Comment on above: Samples from patient s who have taken Naproxen have shown spurious elevation in Total Bilirubin levels. A metabolite of Naproxen, O-desmethylnaproxen, has been shown to interfere with the Tracy-María method for measuring Total Bilirubin. Calcium [Mass/volume] in Ser um or PlasmaOrdered By: Manjinder Lynn on 09-03-2023 Calcium [Mass/Vol] 9.5 mg/dL 8.6-10.3 [facility] Carbon dioxide, total [Moles /volume] in Serum or PlasmaOrdered By: Manjinder Lynn on 09-03-2023 CO2 [Moles/Vol] 27.6 mmol/L 21.0-31.0 [facility] Chloride [Moles/volume] in S cheryl or PlasmaOrdered By: Manjinder Lynn on 09-03-2023 Chloride [Moles/Vol] 103 mmol/L 98-107 [facility] Complete Blood Count no refl exon 09-03-2023 Basophils (Bld) [#/Vol] 0.1 10*3/uL Normal 0.0-0.2 [facility] Comment on above: Result Comment: PERF ORMED BY: [place] [address] PATHOLOGIST DIRECTOR [employer] JOÃO YATES M.D. Performed By: #### C L[facility]NA [facility] CBC #### [address] Basophils/100 WBC (Bld) 1.1 % Normal . T [facility] Comment on above: Performed By: #### C LIANA, [facility] CBC #### [address] Eosinophils (Bld) [#/Vol] 0.4 10*3/uL Normal 0.0-0.45 [facility] Comment on above: Performed By: #### C [facility] CBC #### [address] Eosinophils/100 WBC (Bld) 4.9 % Normal . [facility] Comment on above: Performed By: #### C LIANA [facility] CBC #### [address] Erythrocyte distribution width (RBC) [Ratio] 13.4 % Normal 12.0-14.8 The [facility] Comment on above: Performed By: #### C L[facility]NA [facility] CBC #### [address] Hematocrit (Bld) [Volume fraction] 43.4 % Normal 38.8-50.0 [facility] Comment on above: Performed By: #### C [facility] CBC #### [address] Hemoglobin (Bld) [Mass/Vol] 15.1 g/dL Normal 13.0-17.0 [facility] Comment on above: Performed By: #### C [facility] CBC #### [address] Lymphocytes (Bld) [#/Vol] 3.5 10*3/uL Normal 1.00-4.8 [facility] Comment on above: Performed By: #### C LIANA, [facility] CBC #### [place] [address] [place] Lymphocytes/100 WBC (Bld) 38.0 % Normal . [facility] Comment on above: Performed By: #### C LIANA, [facility] CBC #### [address] MCH (RBC) [Entitic mass] 30.6 pg Normal 27.5-35.2 [facility] Comment on above: Performed By: #### C LIANA, [facility] CBC #### [address] MCV (RBC) [Entitic vol] 88.2 fL Normal 83.5-101 T [facility] Comment on above: Performed By: #### C LIANA, [facility] CBC #### [address] Mean Corpuscular HGB Conc 34.7 g/dL Normal 32.5-35.6 [facility] Comment on above: Performed By: #### C LIANA, [facility] CBC #### [address] Monocytes (Bld) [#/Vol] 0.7 10*3/uL Normal 0.0-0.8 [facility] Comment on above: Performed By: #### C LIANA, [facility] CBC #### [address] Monocytes/100 WBC (Bld) 7.1 % Normal . [facility] Comment on above: Performed By: #### C LIANA, [facility] CBC #### [address] Neutrophils (Bld) [#/Vol] 4.5 10*3/uL Normal 1.8-7.7 [facility] Comment on above: Performed By: #### C L[facility]NA, [facility] CBC #### [address] Neutrophils/100 WBC (Bld) 48.9 % Normal . [facility] Comment on above: Performed By: #### C LIANA, [facility] CBC #### [address] NRBC% 0.2 /100{WBC} Normal 0-0.5 [facility] Comment on above: Performed By: #### C LIANA, [facility] CBC #### [address] Platelet mean volume (Bld) [Entitic vol] 9.6 fL Normal 6.6-10.1 The [facility] Comment on above: Performed By: #### C LIANA, [facility] CBC #### [address] Platelets (Bld) [#/Vol] 230 10*3/uL Normal 150-450 [facility] Comment on above: Performed By: #### C LIANA, [facility] CBC #### [address] RBC (Bld) [#/Vol] 4.92 10*6/uL Normal 3.90-5.[address] [facility] Comment on above: Performed By: #### C LIANA, [facility] CBC #### [address] WBC (Bld) [#/Vol] 9.2 10*3/uL Normal 4.1-10.5 The [facility] Comment on above: Performed By: #### C LIANA, [facility] CBC #### [address] Comprehensive Metabolic Pane serafin 09-03-2023 Albumin [Mass/Vol] 4.6 g/dL Normal 3.5-5.7 The [facility] Comment on above: Performed By: #### C L[facility]NA, [facility] CBC #### [address] Albumin/Globulin [Mass ratio] 2.1 {ratio} Normal [facility] Comment on above: Performed By: #### C L[facility], [facility] CBC #### [address] ALP [Catalytic activity/Vol] 75 U/L Normal 34-104 [facility] Comment on above: Result Comment: PERF ORMED BY: [address] [place] [address] PATHOLOGIST DIRECTOR [employer] JOÃO YATES M.D. Performed By: #### C [facility], [facility] CBC #### [address] ALT [Catalytic activity/Vol] 29 U/L Normal 7-52 [facility] Comment on above: Performed By: #### C L[facility], [facility] CBC #### [address] Anion gap [Moles/Vol] 11.4 mmol/L Normal 6.0-15.0 Th e [facility] Comment on above: Performed By: #### C L[facility]NA, [facility] CBC #### [address] AST [Catalytic activity/Vol] 20 U/L Normal 13-39 [facility] Comment on above: Performed By: #### C LIANA, [facility] CBC #### [address] Bilirubin [Mass/Vol] 1.3 mg/dL High 0.3-1.0 [facility] Comment on above: Result Comment: Samp les from patients who have taken Naproxen have shown spurious elevation in Total Bilirubin levels. A metabolite of Naproxen, O-desmethylnaproxen, has been shown to interfere with the Jendrassik-Grof method for measuring Total Bilirubin. Performed By: #### C L[facility], [facility] CBC #### [address] Calcium [Mass/Vol] 9.5 mg/dL Normal 8.6-10.3 The [facility] Comment on above: Performed By: #### C LIANA, [facility] CBC #### [place] [address] [place] Chloride [Moles/Vol] 103 mmol/L Normal 98-107 [facility] Comment on above: Performed By: #### C LIANA, [facility] CBC #### [place] [address] [place] CO2 [Moles/Vol] 27.6 mmol/L Normal 21.0-31.0 The [facility] Comment on above: Performed By: #### C LIANA, [facility] CBC #### [facility] [address] Creatinine [Mass/Vol] 1.22 mg/dL Normal 0.70-1.30 [facility] Comment on above: Performed By: #### C LIANA, [facility] CBC #### [facility] [address] [place] [address] [place] GFR/1.73 sq M.predicted MDRD (S/P/Bld) [Vol rate/Area] mL/min/{1.73_m2} Normal [facility] Comment on above: Performed By: #### C LIANA, [facility] CBC #### [facility] [address] Globulin (S) [Mass/Vol] 2.2 g/dL Normal T he [facility] Comment on above: Performed By: #### C LIANA, [facility] CBC #### [address] Glucose [Mass/Vol] 117 mg/dL High 70-100 The [facility] Comment on above: Result Comment: [facility] Glucose Reference Range is dependent on time and content of last meal. Glucose of more than 200 mg/dL in a nonstressed, ambulatory subject supports the diagnosis of Diabetes Mellitus. ADA recommended reference range Performed By: #### C LIANA, [facility] CBC #### [facility] [address] Potassium [Moles/Vol] 4.0 mmol/L Normal 3.5-5.1 [facility] Comment on above: Performed By: #### C LIANA, [facility] CBC #### [facility] [address] [place] [address] [place] Protein [Mass/Vol] 6.8 g/dL Normal 6.4-8.9 The [facility] Comment on above: Performed By: #### C L[facility]NA, [facility] CBC #### [facility] [address] Sodium [Moles/Vol] 138 mmol/L Normal 136-145 The [facility] Comment on above: Performed By: #### C MP, [facility] CBC #### [facility] [address] Urea nitrogen [Mass/Vol] 11 mg/dL Normal 7-25 [facility] Comment on above: Performed By: #### C MP, [facility] CBC #### [facility] [address] [place] [id number] [place] Creatinine [Mass/volume] in Serum or PlasmaOrdered By: Manjinder Lynn on 09-03-2023 Creatinine [Mass/Vol] 1.22 mg/dL 0.70-1.30 [facility] Eosinophils Auto (Bld) [#/Vo l]Ordered By: Manjinder Lynn on 09-03-2023 Eosinophils (Bld) [#/Vol] 0.4 10*3/uL 0.0-0.45 [facility] Eosinophils/100 WBC Auto (Bl d)Ordered By: Manjinder Lynn on 09-03-2023 Eosinophils/100 WBC (Bld) 4.9 % . [facility] Erythrocyte distribution wid th Auto (RBC) [Ratio]Ordered By: Manjinder Lynn on 09-03-2023 Erythrocyte distribution width (RBC) [Ratio] 13.4 % 12.0-14.8 [facility] Globulin Calc (S) [Mass/Vol] Ordered By: Manjinder Lynn on 09-03-2023 Globulin (S) [Mass/Vol] 2.2 g/dL [facility] Glucose [Mass/volume] in Ser um or PlasmaOrdered By: Manjinder Lynn on 09-03-2023 Glucose [Mass/Vol] 117 mg/dL 70-100 [facility] Comment on above: ADA recommended refe rence rangeRandom Glucose Reference Range is dependent on time and content of last meal. Glucose of more than 200 mg/dL in a nonstressed, ambulatory subject supports the diagnosis of Diabetes Mellitus. Hematocrit Auto (Bld) [Volum e fraction]Ordered By: Manjinder Lynn on 09-03-2023 Hematocrit (Bld) [Volume fraction] 43.4 % 38.8-50.0 [facility] Hemoglobin [Mass/volume] in BloodOrdered By: Manjinder Lynn on 09-03-2023 Hemoglobin (Bld) [Mass/Vol] 15.1 g/dL 13.0-17.0 [facility] Leukocytes [#/volume] correc padma for nucleated erythrocytes in Blood by Automated counOrdered By: Manjinder Lynn on 09-03-2023 WBC corrected for nucl RBC Auto (Bld) [#/Vol] 9.2 10*3/uL 4.1-10.5 [facility] Lymphocytes Auto (Bld) [#/Vo l]Ordered By: Manjinder Lynn on 09-03-2023 Lymphocytes (Bld) [#/Vol] 3.5 10*3/uL 1.00-4.8 [facility] Lymphocytes/100 WBC Auto (Bl d)Ordered By: Manjinder Lynn on 09-03-2023 Lymphocytes/100 WBC (Bld) 38.0 % . [facility] MCH Auto (RBC) [Entitic mass ]Ordered By: Manjinder Lynn on 09-03-2023 MCH (RBC) [Entitic mass] 30.6 pg 27.5-35.2 [facility] MCHC Auto (RBC) [Mass/Vol]Or dered By: Manjinder Lynn on 09-03-2023 MCHC (RBC) [Mass/Vol] 34.7 g/dL 32.5-35.6 [facility] MCV Auto (RBC) [Entitic vol] Ordered By: Manjinder Lynn on 09-03-2023 MCV (RBC) [Entitic vol] 88.2 fL 83.5-101 [facility] Monocytes Auto (Bld) [#/Vol] Ordered By: Manjinder Lynn on 09-03-2023 Monocytes (Bld) [#/Vol] 0.7 10*3/uL 0.0-0.8 [facility] Monocytes/100 WBC Auto (Bld) Ordered By: Manjinder Lynn on 09-03-2023 Monocytes/100 WBC (Bld) 7.1 % . [facility] Neutrophils Auto (Bld) [#/Vo l]Ordered By: Manjinder Lynn on 09-03-2023 Neutrophils (Bld) [#/Vol] 4.5 10*3/uL 1.8-7.7 [facility] Neutrophils/100 WBC Auto (Bl d)Ordered By: Manjinder Lynn on 09-03-2023 Neutrophils/100 WBC (Bld) 48.9 % . [facility] No Panel InformationOrdered By: Manjinder Lynn on 09-03-2023 Estimated GFR (CKD-EPI) > 60.0 mL/Min [facility] Creatinine Clearance (Chem N/A [facility] Nucleated erythrocytes [Pres ence] in Blood by Automated countOrdered By: Manjinder Lynn on 09-03-2023 Nucleated RBC Auto Ql (Bld) 0.2 /100{WBC} 0-0.5 [facility] Platelet mean volume Auto (B ld) [Entitic vol]Ordered By: Manjinder Lynn on 09-03-2023 Platelet mean volume (Bld) [Entitic vol] 9.6 fL 6.6-10.1 [facility] Platelets Auto (Bld) [#/Vol] Ordered By: Manjinder Lynn on 09-03-2023 Platelets (Bld) [#/Vol] 230 10*3/uL 150-450 [facility] Potassium [Moles/volume] in Serum or PlasmaOrdered By: Manjinder Lynn on 09-03-2023 Potassium [Moles/Vol] 4.0 mmol/L 3.5-5.1 [facility] Protein [Mass/volume] in Ser um or PlasmaOrdered By: Manjinder Lynn on 09-03-2023 Protein [Mass/Vol] 6.8 g/dL 6.4-8.9 [facility] RBC Auto (Bld) [#/Vol]Ordere d By: Manjinder Lynn on 09-03-2023 RBC (Bld) [#/Vol] 4.92 10*6/uL 3.90-5.60 [facility] Serum or plasma albumin/glob ulin mass ratioOrdered By: Manjinder Lynn on 09-03-2023 Albumin/Globulin [Mass ratio] 2.1 {ratio} [facility] Serum or plasma anion gap de terminationOrdered By: Manjinder Lynn on 09-03-2023 Anion gap [Moles/Vol] 11.4 mmol/L 6.0-15.0 [facility] Sodium [Moles/volume] in Ser um or PlasmaOrdered By: Manjinder Lynn on 09-03-2023 Sodium [Moles/Vol] 138 mmol/L 136-145 [facility] Urea nitrogen [Mass/volume] in Serum or PlasmaOrdered By: Manjinder Lynn on 09-03-2023 Urea nitrogen [Mass/Vol] 11 mg/dL 7-25 [facility] WBC Auto (Bld) [#/Vol]Ordere d By: Manjinder Lynn on 09-03-2023 WBC (Bld) [#/Vol] 9.2 10*3/uL 4.1-10.5 [facility] XR chest 1Von 09-03-2023 XR chest 1V [facility] [place] [address] XRay Report Signed Patient: Luís Calhoun MR#: [id number] : 1980 Acct:[id number] Age/Sex: 43 / M ADM Date: 09/03/23 Loc: [place] Room: Type: [facility] Attending Dr: Manjinder Lynn Jr, DO [...] Pelon Salazar M.D.09/03/2023 1:17 PM Dictation Location: [place] [address] Transcribed By: [facility] 09/03/231316 Dictated By: Pelon Salazar DO 09/03/231316 Signed By: 09/03/23 131 Normal [facility] Complete Blood Counton 08-07 Erythrocyte distribution width (RBC) [Ratio] 13.0 % Normal 11.0-15.0 [facility] [place] [facility] Comment on above: Performed By: #### L IPD, CBC, CMP #### [facility] [address] [place], [place] [id number] Hematocrit (Bld) [Volume fraction] 46.2 % Normal 38.5-50.0 [facility] Specialist Comment on above: Performed By: #### L IPD, CBC, CMP #### [facility] [address] [place], [place] [id number] Hemoglobin (Bld) [Mass/Vol] 15.6 g/dL Normal 13.0-17.1 [facility] Specialist Comment on above: Performed By: #### L IPD, CBC, CMP #### [facility] [address] [place], [place] [id number] MCH (RBC) [Entitic mass] 29.8 pg Normal 27.0-33.0 [facility] Specialist Comment on above: Performed By: #### L IPD, CBC, CMP #### [facility] [address] [place], [place] [id number] MCHC (RBC) [Mass/Vol] 33.8 g/dL Normal 32.0-36.0 [facility] Comment on above: Performed By: #### L IPD, CBC, CMP #### [facility] [address] [place], [place] [id number] MCV (RBC) [Entitic vol] 88 fL Normal 80-100 N [facility] Specialist Comment on above: Performed By: #### L IPD, CBC, CMP #### [facility] [address] [place], [place] [id number] Platelet mean volume (Bld) [Entitic vol] 11.20 fL Normal 7.50-12.50 [facility] Specialist Comment on above: Performed By: #### L IPD, CBC, CMP #### [facility] [address] [place], [place] [id number] Platelets (Bld) [#/Vol] 231 10*3/uL Normal 140-400 [facility] Specialist Comment on above: Performed By: #### L IPD, CBC, CMP #### [facility] [address] [place], [place] [id number] RBC (Bld) [#/Vol] 5.24 10*6/uL Normal 4.20-5.80 [facility] [employer] Comment on above: Performed By: #### L IPD, CBC, CMP #### [facility] [address] [place], [place] [id number] RDW-SD 42.1 fL Normal 37.0-50.0 [facility] [employer] Comment on above: Performed By: #### L IPD, CBC, CMP #### [facility] [address] [place], [place] [id number] WBC (Bld) [#/Vol] 9.2 10*3/uL Normal 3.8-11.0 [facility] Comment on above: Performed By: #### L IPD, CBC, CMP #### [facility] [address] [place], [place] [id number] Comprehensive Metabolic Pane serafin 08-07-2021 Albumin [Mass/Vol] 4.7 g/dL Normal 3.6-5.1 [facility] Comment on above: Performed By: #### L IPD, CBC, CMP #### [facility] [address] [place], [place] [id number] Albumin/Globulin [Mass ratio] 2.4 {ratio} Normal 1.0-2.5 [facility] [employer] Comment on above: Performed By: #### L IPD, CBC, CMP #### [facility] [address] [place], [place] [id number] ALP [Catalytic activity/Vol] 76 U/L Normal 40-129 [facility] Comment on above: Performed By: #### L IPD, CBC, CMP #### [facility] [address] [place], [place] [id number] ALT [Catalytic activity/Vol] 52 U/L High 9-46 [facility] Specialist Comment on above: Result Comment: 03/28 Female reference range changed. Performed By: #### L IPD, CBC, CMP #### [facility] [address] [place], [place] [id number] Anion gap [Moles/Vol] 18 mmol/L Normal 12-20 [facility] Comment on above: Result Comment: Effe ctive 05/03/2019 reference range changed. Performed By: #### L IPD, CBC, CMP #### [facility] [address] [place], [place] [id number] AST [Catalytic activity/Vol] 36 U/L Normal 10-40 [facility] Comment on above: Performed By: #### L IPD, CBC, CMP #### [facility] [address] [place], [place] [id number] Bilirubin [Mass/Vol] 1.27 mg/dL High 0.30-1.20 [facility] Comment on above: Performed By: #### L IPD, CBC, CMP #### [facility] [address] [place], [place] [id number] BUN/CREA 10 Ratio Normal 6-22 [facility] Comment on above: Performed By: #### L IPD, CBC, CMP #### [facility] [address] [place], [place] [id number] Calcium [Mass/Vol] 9.6 mg/dL Normal 8.6-10.2 [facility] Comment on above: Performed By: #### L IPD, CBC, CMP #### [facility] [address] [place], [place] [id number] Chloride [Moles/Vol] 104 mmol/L Normal 98-107 [facility] Comment on above: Performed By: #### L IPD, CBC, CMP #### [facility] [address] [place], [place] [id number] CO2 [Moles/Vol] 22 mmol/L Normal 20-31 [facility] Comment on above: Performed By: #### L IPD, CBC, CMP #### [facility] [address] [place], [place] [id number] Creatinine [Mass/Vol] 1.0 mg/dL Normal 0.7-1.4 [facility] Comment on above: Performed By: #### L IPD, CBC, CMP #### [facility] [address] [place], [place] [id number] eGFRAA 96 mL/min/1.73m2 Normal >60 [facility] Comment on above: Performed By: #### L IPD, CBC, CMP #### [facility] [address] [place], [place] [id number] eGFRNAA 80 mL/min/1.73m2 Normal >60 [facility] Comment on above: Performed By: #### L IPD, CBC, CMP #### [facility] [address] [place], [place] [id number] Globulin (S) [Mass/Vol] 2.0 g/dL Normal 1.9-3.7 [facility] Comment on above: Performed By: #### L IPD, CBC, CMP #### [facility] [address] [place], [place] [id number] Glucose [Mass/Vol] 76 mg/dL Normal 65-99 [facility] Comment on above: Result Comment: For FASTING Glucose --- ADA reference ranges: Normal 65-99 mg/dl Prediabetes 100-125 Diabetes >/= 126 Performed By: #### L IPD, CBC, CMP #### [facility] [address] [place], [place] [id number] Potassium [Moles/Vol] 4.7 mmol/L Normal 3.5-5.5 [facility] Comment on above: Result Comment: Spec imen is hemolyzed. Results may be affected. Performed By: #### L IPD, CBC, CMP #### [facility] [address] [place], [place] [id number] Protein [Mass/Vol] 6.7 g/dL Normal 6.1-8.1 [facility] Comment on above: Performed By: #### L IPD, CBC, CMP #### [facility] [address] [place], [place] [id number] Sodium [Moles/Vol] 139 mmol/L Normal 135-146 [facility] Comment on above: Performed By: #### L IPD, CBC, CMP #### [facility] [address] [place], [place] [id number] Urea nitrogen [Mass/Vol] 11 mg/dL Normal 7-25 [facility] Comment on above: Performed By: #### L IPD, CBC, CMP #### [facility] [address] [place], [place] [id number] Lipid Panelon 08-07-2021 Cholesterol [Mass/Vol] 154 mg/dL Normal 125-200 No [facility]thern [facility] Comment on above: Result Comment: Low risk < 200mg/dL Borderline risk 201-239 mg/dl High risk > or equal to 240 Performed By: #### L IPD, CBC, CMP #### [facility] [address] [place], [place] [id number] Cholesterol in HDL [Mass/Vol] 40 mg/dL Low >40 [facility] Specialist Comment on above: Result Comment: High Cardiovascular Risk HDL <40 mg/dL Low Cardiovascular Risk HDL > or equal to 60 mg/dl Performed By: #### L IPD, CBC, CMP #### [facility] [place], [place] [id number] Cholesterol in LDL [Mass/Vol] 88 mg/dL Normal [facility] Comment on above: Result Comment: LDL ATP III CLASSIFICATION LDL less than 100 mg/dl Optimal LDL 100-129 mg/dl Near or above optimal LDL 130-159 Borderline high LDL 160-189 High LDL greater than 189 mg/dl Very High Performed By: #### L IPD, CBC, CMP #### [facility] [place], [place] [id number] Cholesterol in VLDL [Mass/Vol] 26 mg/dL Normal [facility] Comment on above: Performed By: #### L IPD, CBC, CMP #### [facility] [place], [place] [id number] Cholesterol.total/Choles terol in HDL [Mass ratio] 4 {ratio} Normal [facility] Comment on above: Performed By: #### L IPD, CBC, CMP #### [facility] [address] [place], [place] [id number] Triglyceride [Mass/Vol] 129 mg/dL Normal 30-[facility] Comment on above: Result Comment: TRIG ATPIII CLASSIFICATIONS TRIG less than 150 mg/dl Normal TRIG 150-199 mg/dl Borderline High TRIG 200-500 mg/dl High TRIG greather than 500 mg/dl Very High Performed By: #### L IPD, CBC, CMP #### [facility] [place], [place] [id number] NR MR L-SPINE WO/W CONTRASTo n 01-13-2019 NR MR L-SPINE WO/W CONTRAST Patient Name: LUÍS CALHOUN STUDY: MR L-SPINE WO/W CONTRAST; 01/13/2019 10:05 am INDICATION: Radiculopathy, lumbar region. History of laminectomy. Right leg pain and numbness. COMPARISON: None. ACCESSION NUMBER(S): [id number] ORDERING CLINICIAN: ADELITA HENRY TECHNIQUE: Multisequential MR [...] Electronically signed by: BJ MUNGUIA MD Normal [facility] XR LUMBAR SPINE (MIN 4 VIEWS )on 12-17-2018 XR LUMBAR SPINE (MIN 4 VIEWS) Radiology exam is complete. No Radiologist dictation. Please follow up with ordering provider. Final result Normal [facility] Radiology exam is complete. No Radiologist dictation. Please follow up with ordering provider. [facility] [place], [place] Established Visit (Otolaryng ology)on 03-02-2018 Established Visit (Otolaryngology) Chief ComplaintNew patient suspected cholesteatoma History of Present IllnessHere today for mastoid bowl cleaning and follow up. Denies any interval otologic complaints since last being seen. Recall: 37 year old male referred by Dr. Head. When he was a child in [place] had a chronically draining ear and underwent [...] assist you through your ENT care at [facility].Dr. Chicas is an Ear surgeon. This means that he specializes in taking care of patients with complex ear problems.Dr. Chicas's office number is [phone]. While you may see him at a satellite office, she has a team committed to help meet your healthcare needs at [facility]'s main campus. This number is the most direct way to communicate with the office.Audra is Dr. Padilla secretary specialist and she answers the office phone from [...] may include dieticians, social workers, speech therapists, lay out worker, neurologist, and physical therapist. Dr. Chicas will provide these referrals as needed. Please let him know if you would like to request a specific referral.For your convenience, Dr. Chicas sees patients at several [facility] locations including [facility], [facility], and [facility]. While we try to make your [...] 02 2018 2:05PM EST (Author) Normal [facility] Initial Visit (Otolaryngolog y)on 09-29-2017 Initial Visit (Otolaryngology) Chief ComplaintNew patient suspected cholesteatoma History of Present [place]32 year old male referred by Dr. Head. When he was a child in [place] had a chronically draining ear and underwent [...] AM Vitals Vital Signs Recorded: 29Sep2017 11:23AMHeart Yirs53Ufhfysvx067Vpmg wzozt28Ujkprs8 ft 2 abCqfnrw677 lb BMI Zrimctqcfs29.65BSA Calculated2.59 Physical ExamCONSTITUTIONAL: No acute distressVOICE: No [...] assist you through your ENT care at [facility].Dr. Chicas is an Ear surgeon. This means that he specializes in taking care of patients with complex ear problems.Dr. Chicas's office number is [phone]. While you may see him at a satellite office, she has a team committed to help meet your healthcare needs at [facility]'s main campus. This number is the most direct way to communicate with the office.Audra is Dr. Padilla secretary specialist and she answers the office phone from [...] may include dieticians, social workers, speech therapists, lay out worker, neurologist, and physical therapist. Dr. Chicas will provide these referrals as needed. Please let him know if you would like to request a specific referral.For your convenience, Dr. Chicas sees patients at several [facility] locations including [facility], [facility], and [facility]. While we try to make your [...] ACTIVE -Retrospective By Protocol Authorization Ordered Normal [employer] Vital Signs Date Time Vital Sign Value Performing Clinician Raheem leigh 06-15-2024 15:36-0500 Body height 188 cm Al Marin DO Work Phone: [facility] 06-15-2024 15:36-0500 Body mass index (BMI) [Ratio] 36.59 kg/m2 Al Marin DO Work Phone: [facility] 06-15-2024 15:36-0500 Body weight 129.28 kg Al Marin DO Work Phone: [facility] 04-05-2024 07:58-0500 Body height 188 cm Adelita Epperson MD Work Phone: [facility] 04-05-2024 07:58-0500 Body mass index (BMI) [Ratio] 36.59 kg/m2 Adelita Epperson MD Work Phone: [facility] 04-05-2024 07:58-0500 Body weight 129.28 kg Adelita Epperson MD Work Phone: [facility] 04-05-2024 07:58-0500 Diastolic blood pressure 60 mm[Hg] Adelita Epperson MD Work Phone: [facility] 04-05-2024 07:58-0500 Heart rate 90 /min Adelita Epperson MD Work Phone: [facility] 04-05-2024 07:58-0500 SaO2% (BldA) [Mass fraction] 98 % Adelita Epperson MD Work Phone: [facility] 04-05-2024 07:58-0500 Systolic blood pressure 126 mm[Hg] Adelita Epperson MD Work Phone: [facility] Healthcare Encounters Encounter Date Encounter Type Care Provider Facility Start: 06-15-2024 End: 06-15-2024 Office outpatient visit 15 minutes Al Marin DO Work Phone: [facility] [place] Comment on above: History of cholestea shayla (Primary Dx); Chronic mastoiditis of left side; Hearing loss of left ear, unspecified hearing loss type Start: 06-15-2024 End: 06-15-2024 ambulatory AL MARIN Not Available Start: 05-30-2024 End: 05-31-2024 Refill Adelita Epperson MD Work Phone: [facility] Comment on above: Obesity (BMI 30-39.9 ) Start: 04-23-2024 End: 04-23-2024 ambulatory JORGITO R RISALITI Not Available Start: 04-07-2024 End: 04-08-2024 Refill Adelita Epperson MD Work Phone: [facility] Comment on above: Obesity (BMI 30-39.9 ) Start: 04-05-2024 End: 04-05-2024 Office outpatient visit 25 minutes Adelita Epperson MD Work Phone: [facility] Comment on above: Osteoarthritis of sp ine with radiculopathy, lumbosacral region (Primary Dx); Severe obesity (BMI 35.0-39.9) with comorbidity (CMS/HCC); BMI 36.0-36.9,adult; Palpitations; Family history of early CAD; Cigarette nicotine dependence without complication; Annual physical exam; Medication management Start: 04-05-2024 End: 04-05-2024 Patient encounter procedure Adelita Epperson MD Work Phone: [facility] Start: 04-05-2024 End: 04-05-2024 ambulatory ADELITA EPPERSON Not Available Start: 03-24-2024 End: 03-24-2024 Refill Adelita Epperson MD Work Phone: [facility] Comment on above: Obesity (BMI 30-39.9 ) Start: 03-15-2024 End: 03-15-2024 ambulatory Laura Luevano MD Facility:[facility] Start: 03-02-2024 End: 03-02-2024 Orders Only Adelita Epperson MD Work Phone: [facility] Comment on above: Lumbar paraspinal mu scle spasm (Primary Dx); Lumbar radiculopathy Start: 02-10-2024 End: 02-11-2024 Refill Jorgito Chirinos BUILDING DRAFTER Work Phone: [facility] Comment on above: Obesity (BMI 30-39.9 ) Start: 01-13-2024 End: 01-13-2024 Refill Adelita Epperson MD Work Phone: [facility] Comment on above: Obesity (BMI 30-39.9 ) Start: 01-05-2024 End: 01-05-2024 ambulatory Laura Luevano MD Facility:[facility] Start: 12-09-2023 End: 12-09-2023 ambulatory AL S BILIONELENBACH Not Available Start: 11-25-2023 End: 11-25-2023 ambulatory AL S BIEDENBACH Not Available Start: 11-12-2023 End: 11-12-2023 ambulatory HANS LORD Not Available Start: 10-07-2023 End: 10-07-2023 ambulatory ADELITA EPPERSON Not Available Start: 09-11-2023 End: 09-11-2023 ambulatory AL S TIMOTHYBACH Not Available Start: 09-03-2023 End: 09-03-2023 ambulatory Manjinder Lynn Jr Facility:[facility] Start: 09-03-2023 End: 09-03-2023 ambulatory MD Adelita Epperson Work Phone: [facility] Work Phone: Start: 09-03-2023 End: 09-03-2023 Departed Referred MD Adelita Epperson Work Phone: [facility] [address] Work Phone: Start: 07-14-2023 End: 07-14-2023 ambulatory ADELITA EPPERSON Not Available Start: 06-24-2023 End: 06-24-2023 ambulatory TONYA ESTRELLA Not Available Start: 06-03-2023 Telephone encounter Laurie cameron BUILDING DRAFTER Work Phone: [facility] Start: 09-05-2022 [...] Patient encounter procedure Adelita Epperson [facility] [place] Start: 12-17-2018 End: 12-20-2018 Patient encounter procedure ADELITA EPPERSON [facility] Start: 12-17-2018 End: 12-19-2018 Subsequent hospital visit by physician [facility] Comment on above: Low back [...] 06/21/2025 3:45 PM EST Office Visit [facility] [address] [place] [phone] Al Marin, DO [address] [place] [address] [facility] Start: 10-11-2024 End: 10-11-2024 Patient encounter procedure 10/11/2024 8:15 AM EDT Office Visit [facility] [address] [place] [phone] Adelita Epperson MD [address] [place] [address] [facility] Start: 07-12-2024 End: 07-12-2024 Patient encounter procedure 07/12/2024 8:45 AM EDT Office Visit [facility] [address] [place] [phone] Adelita Epperson MD [address] [place] [address] [facility] Start: 06-15-2024 End: 06-15-2024 Patient encounter procedure 06/15/2024 3:45 PM EST Office Visit [facility] [address] [place] [phone] Al Marin, DO [address] [place] [address] [facility] Start: 05-31-2024 Influenza vaccination Influenza Vacc ine (#1) [facility] Comment on above: Postponed from 12/27 (Patient Refused) Start: 04-05-2024 End: 04-05-2024 Patient encounter procedure 04/05/2024 8:15 AM EST Office Visit [facility] [address] [place] [phone] Adelita Epperson MD [address] [place] [address] [facility] Start: 03-11-2024 End: 03-11-2024 Patient encounter procedure 03/11/2024 3:15 PM EST Office Visit [facility] [address] [place] [phone] Al Marin, DO [address] [place] [address] [facility] [place] Start: 03-02-2024 End: 03-02-2024 ambulatory 03/02/2024 10:30 AM EST Evaluation [facility] [address] [place] [phone] Antonio Solomon, PT [address] [place] [phone] [facility] Start: 12-28-2023 Influenza vaccination Influenza Vacc ine (#1) [facility] Start: 08-26-2023 End: 08-26-2023 Patient encounter procedure 08/26/2023 3:45 PM EDT Office Visit [facility] [address] [place] [phone] Al Marin, DO [address] [place] [address] [facility] [place] Start: 07-14-2023 End: 07-14-2023 Patient encounter procedure 07/14/2023 8:45 AM EDT Office Visit [facility] [address] [place] [phone] Adelita Epperson MD [address] [place] [address] [facility] Start: 06-23-2023 End: 06-23-2023 Patient encounter procedure 06/23/2023 8:00 AM EST Office Visit [facility] [address] [place] [phone] Laurie Haley, BUILDING DRAFTER [address] [place] [address] [facility] Start: 06-16-2023 End: 06-16-2023 ambulatory 06/16/2023 4:15 PM EST Treatment [facility] [address] [place] [address] Antonio Solomon, PT [address] [facility] [place] [phone] [facility] Start: 06-09-2023 End: 06-09-2023 ambulatory 06/09/2023 4:30 PM EST Treatment [facility] [address] [place] [address] Antonio Solomon, PT [address] [place] [address] [facility] Start: 06-04-2023 End: 06-04-2024 MR Lumbar spine WO contrast MR lumbar spine wo contrast Imaging Routine DDD (degenerative disc disease), lumbar Lumbar herniated disc Expected: 06/04/2023 (Approximate), Expires: 06/04/2024 [facility] Work Phone: Comment on above: Expected: 06/04/2023 (Approximate), Expires: 06/04/2024 Start: 12-27-2022 Influenza vaccination Influenza Vacc ine (#1) [facility] Start: 12-27-2018 Influenza vaccination Flu vaccine (# 1) [place], [place] Start: 1999 DTaP/Tdap/Td vaccine (1 - Tdap) DTaP/Tdap/Td vaccine (1 - Tdap) [place] Start: 1995 HIV screen HIV screen [place], [place] Start: 1993 Varicella Vaccine (1 of 2 - 13+ 2-dose series) Varicella Vaccine (1 of 2 - 13+ 2-dose series) [place] Start: 1986 Pneumococcal 0-64 ye ars Vaccine (1 of 1 - PPSV23) Pneumococcal 0-64 years Vaccine (1 of 1 - PPSV23) [place], [place] Basic metabolic 1998 panel - Serum or Plasma Basic metabolic panel Lab Routine Annual physical exam Medication management Ordered: 04/05/2024 [facility] [employer] Work Phone: Comment on above: Ordered: 04/05/2024 CBC W Auto Different ial panel - Blood CBC and differential Lab Routine Annual physical exam Ordered: 04/05/2024 [facility] Comment on above: Ordered: 04/05/2024 Hepatic function 200 0 panel - Serum or Plasma Hepatic function panel Lab Routine Medication management Ordered: 04/05/2024 [facility] Comment on above: Ordered: 04/05/2024 Lipid 1996 panel - Serum or Plasma Lipid panel Lab Routine Severe obesity (BMI 35.0-39.9) with comorbidity (CMS/HCC) Annual physical exam Ordered: 04/05/2024 [facility] Comment on above: Ordered: 04/05/2024 Payers Date Payer Category Payer Self-pay [id number] [facility] BCBS [id number] 2020 Unknown [id number] .[id number] 2017 Private Health Insurance [id number] 2017 Private Health Insurance [employer] xxxxxxxxxx 2017-Present [phone] [facility] [address] [place] [address] xxxxxxxxxx [id number] .7.3.881768.315 1980 Unknown [id number] 2.16.840.1.178522.3.579.2 .356 1980 Unknown [id number] 2.16.840.1.747947.3.579.2 .356 1980 Unknown [id number] 2.16.840.1.150038.3.579.2 .356 1980 Unknown [id number] 2.16.840.1.216460.3.579.2 .185 1980 Unknown [id number] 2.16.840.1.363231.3.579.2 .593 1980 Unknown [id number] 2.16.840.1.560170.3.579.2 .593 1980 Unknown [id number] 2.16.840.1.328171.3.579.2 .593 1980 Unknown [id number] 2.16.840.1.551568.3.579.2 .593 1980 Unknown [id number] 2.16.840.1.895484.3.579.2 .593 1980 Unknown [id number] 2.16.840.1.438076.3.579.2 .593 1980 Unknown [id number] 2.16.840.1.208250.3.579.2 .196 1980 Unknown [id number] 2.16.840.1.110495.3.579.2 .196 1980 Unknown [id number] 2.16.840.1.967196.3.579.2 .9 1980 Unknown [id number] 2.16.840.1.465995.3.579.2 .1258 1980 Unknown [id number] 2.16.840.1.455495.3.579.2 .1258 1980 Unknown [id number] 2.16.840.1.733099.3.579.2 .1258 1980 Unknown [id number] 2.16.840.1.228174.3.579.2 .1258 1980 Unknown [id number] 2.16.840.1.758088.3.579.2 .1258 1980 Unknown [id number] 2.16.840.1.458579.3.579.2 .1258 1980 Unknown [id number] 2.16.840.1.985796.3.579.2 .1258 1980 Unknown [id number] 2.16.840.1.259248.3.579.2 .1258 1980 Unknown [id number] 2.16.840.1.492297.3.579.2 .1258 1980 Unknown [id number] 2.16.840.1.141064.3.579.2 .9 1959 Unknown [id number] Unknown [id number] 2.16.840.1.479641.3.579.2 .531 Social History Date Type Detail Facility Start: 04-28-1993 End: 10-07-2023 Tobacco smoking status VTIS Current every day smoker [place] Start: 01-16-2018 End: 04-05-2024 Alcohol intake No [place] Sex Assigned At Not on file [place] Start: 1980 Sex Assigned At Male [...] in 1 year documented in this encounter [facility] 04-05-2024 History of Presen t illness [...] spondylosis without myelopathy 04/30/2016 Lymphedema 10/08/2018 Migraine (CMS/[facility]) Obesity (BMI 30-39.9) 02/24/2023 SURGICAL HISTORY: Past [...] Hepatic function panel documented in this encounter [facility] 03-24-2024 Telephone encount er Note Pt requesting a refill on Adipex to [facility] in [place] [facility] 03-24-2024 Miscellaneous Notes Formattin g of this note might be different from the original. Pt requesting a refill on Adipex to [facility] in [place] documented in this encounter [facility] 06-03-2023 Telephone encount er Note Pt called back and would like to do MRI at [facility]. [facility] 06-03-2023 Miscellaneous Notes Formattin g of this note might be different from the original. Pt called back and would like to do MRI at [facility]. documented in this encounter [facility] 07-23-2022 Note PAIN MANAGEMENT CONS ULTATION CONSULTATION DATE: 07/23/2022 ADDENDUM: The dictation mentions denervation of the L4-5, L5-S1 facet joint under fluoroscopic guidance by using radiofrequency ablation on the left side. The dictation should read: Proceed with radiofrequency ablation of the L2-3, L4-5 levels under fluoroscopic guidance on the left side. [facility] 07-23-2022 Note PAIN MANAGEMENT CONS ULTATION CONSULTATION DATE: 07/23/2022 ADDENDUM: The dictation mentions denervation of the L4-5, L5-S1 facet joint under fluoroscopic guidance by using radiofrequency ablation on the left side. The dictation should read: Proceeded with radiofrequency ablation of the L2-3, L4-5 levels under fluoroscopic guidance on the left side. [facility] 07-23-2022 Note CONSULTATION CONSULTATION DATE: 07/23/2022 TO: [...] to proceed with the outlined plan. 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 He reports 0/10 pain [...] in six months' time for re-evaluation. [facility] 01-03-2022 Note CONSULTATION CONSULTATION DATE: 01/03/2022 HISTORY [...] three months' time, unless otherwise indicated. [facility] 10-04-2021 Note CONSULTATION CONSULTATION DATE: 10/04/2021 This [...] gluconate 800 mg q.h.s. in addition to nyhc-uth-uaycrqx ibuprofen 600 mg q.a.m. before work. Daily stretching and the use of heat were encouraged to aid with the spasms. We discussed about different vitamin regimens and the patient was willing to try. He will be followed up in the clinic in three months' time unless otherwise indicated. The patient agrees with the plan of care. [facility] Signed and Approved by: SEAN WELLS . 10/11/2021 16:03:00 [facility] Evaluation note Diagnosis DDD (degenerative disc disease), lumbar- Primary Degeneration of lumbar or lumbosacral intervertebral disc Lumbar herniated disc documented in this encounter [facility] HealthcareEvaluation noteNo assessment information [facility] Work Phone: Evaluation note* Diagnosis Obesity (BMI 30-39.9) documented in this encounter [facility] HealthcareEvaluation note* Diagnosis Lumbar paraspinal muscle spasm- [...] Primary Severe obesity (BMI 35.0-39.9) with comorbidity (CMS/[facility]) BMI 36.0-36.9,adult Palpitations Family history of early [...] Lumbar paraspinal muscle spasm Lumbar radiculopathy Procedures [place] OFFICE/OUTPATIENT NEW HIGH MDM 60 MINUTES Adelita Epperson MD [address] [place] [address] Phone: tel: fax: Antonio Solomon, PT [address] [place] [address] Phone: tel: fax: Referral ID Status Reason Start Date Expiration Date Visits Requested Visits Authorized [id number] Authorized Consult and Treat 03/02/2024 08/29/2024 53 53 [facility] Summary Purpose Family History No Family History Records FoundNo Family History Records FoundNo Family History Records FoundNo Family History Records FoundNo Family History Records FoundNo Family History Records FoundNo Family History Records FoundNo Family History Records FoundNo Family History Records Found Advance Directives Documents on File Type Date Recorded 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 Advance Directives and Living Will Power of Mending Carrier Advance Directive Response Recorded Date/ Time Advance [...] spine wo contrast Laurie Haley NP [address] [facility] [address] [place] [address] Referral ID Status Reason Start Date Expiration Date V isits Requested Visits Authorized [id number] Pending Review 06/04/2023 12/01/2023 1 1 Additional Source Comments (unrecognized sect ion and content) No Status Records FoundNo Status Records FoundNo Status Records FoundNo Status Records FoundNo Status Records FoundNo Status Records FoundNo Status Records FoundNo Status Records FoundNo Status Records Found INFORMATION SOURCE (unrecogn ized section and content) DATE CREATED AUTHOR 04/05/2018 [facility] DATE CREATED AUTHOR AUTHOR'S ORGANIZ ATION 04/05/2018 [facility] DATE CREATED AUTHOR AUTHOR'S ORGANIZ ATION 12/20/2018 [facility] DATE CREATED AUTHOR AUTHOR'S ORGANIZ ATION 01/31/2019 [facility] DATE CREATED AUTHOR AUTHOR'S ORGANIZ ATION 08/08/2021 [facility] dical Specialist DATE CREATED AUTHOR AUTHOR'S ORGANIZ ATION 08/09/2022 [facility] DATE CREATED AUTHOR AUTHOR'S ORGANIZ ATION 09/04/2023 [facility] DATE CREATED AUTHOR AUTHOR'S ORGANIZ ATION 03/20/2024 [facility] DATE CREATED AUTHOR AUTHOR'S ORGANIZ ATION 06/17/2024 [facility] dical Specialists EPIC Care Teams (unrecognized sec tion and content) Developmental Therapist Relationship Specialty Start Date End Date Adelita Epperson MD [address] [place] [address] PCP - General Internal Medicine 11/06/22 Team Status: Active Member Role Status Dates Adelita Epperson MD Primary Care Provider Active Team Status: Inactive Member Role Status Dates Adelita Epperson MD Primary Care Provider Active St art: September 03, 2023 End: September 03, 2023 Manjinder Lynn Jr, DO Attending Provider Active S tart: September 03, 2023 End: September 03, 2023 Developmental Therapist Relationship Specialty Start Date End Date Adelita Epperson MD [address] [place] [address] PCP - General Internal Medicine 11/06/22 Adelita Epperson MD [address] [place] [address] PCP - [employer] 06/27/23 Developmental Therapist Relationship Specialty Start Date End Date Adelita Epperson MD [address] [place] [address] PCP - General Internal Medicine 11/06/22 Adelita Epperson MD [address] [place] [address] PCP - [employer] 06/27/23 Developmental Therapist Relationship Specialty Start Date End Date Adelita Epperson MD [address] [place] [address] PCP - General Internal Medicine 11/06/22 Adelita Epperson MD [address] [place] [address] PCP - [employer] 06/27/23 Developmental Therapist Relationship Specialty Start Date End Date Adelita Epperson MD [address] [place] [address] PCP - General Internal Medicine 11/06/22 Adelita Epperson MD [address] [place] [address] PCP - [employer] 06/27/23 Developmental Therapist Relationship Specialty Start Date End Date Adelita Epperson MD [address] [place] [address] PCP - General Internal Medicine 11/06/22 Adelita Epperson MD [address] [place] [address] PCP - [employer] 06/27/23 Developmental Therapist Relationship Specialty Start Date End Date Adelita Epperson MD [address] [place] [address] PCP - General Internal Medicine 11/06/22 Adelita Epperson MD [address] [place] [address] PCP - [employer] 06/27/23 Goals (unrecognized section and content) [...] BE BASED ON THE PRIMARY CLINICAL RECORDS. [facility]. provides no warranty or guarantee of the accuracy or completeness of information in this document.
[2024-07-05 07:49] VITALS: BP 160/108; PULSE 99; TEMP 36.9; O2SAT 97
[2024-07-05 08:26] VITALS: BP 140/87; PULSE 82; O2SAT 98
[2024-07-05 08:29] VITALS: BP 133/83; PULSE 84; O2SAT 98
[2024-07-05] MEDS: IOHEXOL 240 MG/ML - 10 ML VIAL 24 MG INJ (08:31)
[2024-07-05] MEDS: BUPIVACAINE HCL 0.25% PF 25 MG/10 ML VIAL INJ (08:31)
[2024-07-05] MEDS: 0.9 % SODIUM CHLORIDE 10 ML SYRINGE - SALINE FLUSH INJ (08:31)
[2024-07-05] MEDS: LIDOCAINE HCL 2% 400 MG/20 ML MDV 3 ML INJ (08:31)
[2024-07-05] MEDS: METHYLPREDNISOLONE ACETATE 80 MG/ML VIAL INJ (08:31)
--- NOTE | 2024-07-05 08:31 | P.ON_ITS ---
Date of procedure: 07/05/24 Pre-op diagnosis: Pain due to lumbar stenosis with neurogenic claudication Post-op diagnosis: same as pre-op Procedure: Procedure: Left L4-5, L5-S1 transforaminal epidural steroid injection Medications: Bupivacaine 0.25% 2cc, lidocaine 2% 1cc, depomedrol 80mg The patient was seen and examined in the preoperative holding area.? Informed consent was obtained and placed on the chart.? Patient was brought to the medical procedure unit and placed in the prone position where a timeout was completed verifying the correct patient, procedure site, position, and planned special equipment using sterile aseptic technique.? Under direct fluoroscopic visualization a 25-gauge Quincke tipped spinal needle was advanced to the designated neural foramen where contrast dye was injected to show adequate spread.? The needle was inserted at level left L4-5. There was no evidence of vascular or adverse uptake.? Epidural spread was appreciated.? The above- mentioned injectate was then placed in a 1.5 mL aliquot preceded by negative aspiration.? The needle was removed. The needle was inserted and the procedure repeated at level left L5-S1.? The surgery site was covered.? Patient was taken to the postprocedural recovery area and monitored for an appropriate length of time before found suitable for discharge in the accompaniment of a responsible adult. Anesthesia: Local Surgeon: Laura Luevano Pathology: none sent Condition: stable Disposition: no change
== END 2024-07-05 08:36 | disposition home or self-care (01) ==
LOC: SURGOUT 07:03
PROVIDERS: PCP Internal Medicine; Visit Provider Anesthesiology
DX: M48.062 Spinal stenosis, lumbar region with neurogenic claudication (principal)
CPT/HCPCS: 64483; 64484; J0665; J1010; Q9966

== ENCOUNTER 2024-07-15 07:37 | Outpatient (OUT) | payer BC, SELFPAY ==
--- OUTSIDE RECORDS SUMMARY | 2024-07-15 07:41 | XMS_ITS | CCD ---
Author Organization [facility] Care Team Providers Care Phosphoric Acid Supervisor Name Role Phone Jennifer Muller Unavailable Unavailable [...] Primary Care Provider Dereck Morrow Attending Provider [phone] LAKSHMIPATHY ., NARENDRANATH Attending Mell vailable [...] Unavailable MD Adelita Epperson Primary Care Provider [phone] Manjinder Lynn Jr Attending Provider [phone] Adelita Epperson MD Unavailable AL MARIN Attending Unavailable TONYA ESTRELLA Attending Unavailable ZHOU, ADELITA Whitaker Attending Unavailable TOMAS, AL Tate Attending Unavailable ZHOU, ADELITA Whitaker Attending Unavailable HANS LORD Attending Unavailable TOMAS, AL Tate Attending Unavailable TOMAS, AL Tate Attending Unavailable ANTONIO SOLOMON Attending Unavailable ADELITA EPPERSON Referring Unavailable ADELITA EPPERSON Attending Unavailable ERIN CHIRINOS Attending Unavailable Chloé CID, Laura Gutierrez Attending [...] (2 sources) Patient encounter status; Translations: [Other technician terminal and repeater (current) drug therapy] 04-05-2024 Episodic Other connective [...] 09-03-2023 ALT [Catalytic activity/Vol] 29 U/L 7-52 [facility] Albumin [Mass/volume] in Ser um or Plasma by Bromocresol green (BCG) dye binding methoOrdered By: Manjinder Lynn on 09-03-2023 Albumin BCG dye [Mass/Vol] 4.6 g/dL 3.5-5.7 [facility] Alkaline phosphatase [Enzyma tic activity/volume] in Serum or PlasmaOrdered By: Manjinder Lynn on 09-03-2023 ALP [Catalytic activity/Vol] 75 U/L 34-104 [facility] Aspartate aminotransferase [ Enzymatic activity/volume] in Serum or PlasmaOrdered By: Manjinder Lynn on 09-03-2023 AST [Catalytic activity/Vol] 20 U/L 13-39 [facility] Basophils Auto (Bld) [#/Vol] Ordered By: Manjinder Lynn on 09-03-2023 Basophils (Bld) [#/Vol] 0.1 10*3/uL 0.0-0.2 [facility] Basophils/100 WBC Auto (Bld) Ordered By: Manjinder Lynn on 09-03-2023 Basophils/100 WBC (Bld) 1.1 % . [facility] Bilirubin.total [Mass/volume ] in Serum or PlasmaOrdered By: Manjinder Lynn on 09-03-2023 Bilirubin [Mass/Vol] 1.3 mg/dL 0.3-1.0 [facility] Comment on above: Samples from patient s who have taken Naproxen have shown spurious elevation in Total Bilirubin levels. A metabolite of Naproxen, O-desmethylnaproxen, has been shown to interfere with the Tracy-María method for measuring Total Bilirubin. Calcium [Mass/volume] in Ser um or PlasmaOrdered By: Manjinder Lynn on 09-03-2023 Calcium [Mass/Vol] 9.5 mg/dL 8.6-10.3 [facility] Carbon dioxide, total [Moles /volume] in Serum or PlasmaOrdered By: Manjinder Lynn on 09-03-2023 CO2 [Moles/Vol] 27.6 mmol/L 21.0-31.0 [facility] Chloride [Moles/volume] in S cheryl or PlasmaOrdered By: Manjinder Lynn on 09-03-2023 Chloride [Moles/Vol] 103 mmol/L 98-107 [facility] Complete Blood Count no refl exon 09-03-2023 Basophils (Bld) [#/Vol] 0.1 10*3/uL Normal 0.0-0.2 [facility] Comment on above: Result Comment: PERF ORMED BY: [place] [address] PATHOLOGIST JUICE WEIGHER JOÃO YATES M.D. Performed By: #### C MP, [facility] CBC #### [place] [address] [place] Basophils/100 WBC (Bld) 1.1 % Normal . [facility] Comment on above: Performed By: #### C MP, [facility] CBC #### [place] [address] [place] Eosinophils (Bld) [#/Vol] 0.4 10*3/uL Normal 0.0-0.45 [facility] Comment on above: Performed By: #### C MP, [facility] CBC #### [place] [address] [place] Eosinophils/100 WBC (Bld) 4.9 % Normal . [facility] Comment on above: Performed By: #### C MP, [facility] CBC #### [place] [address] [place] Erythrocyte distribution width (RBC) [Ratio] 13.4 % Normal 12.0-14.8 [facility] Comment on above: Performed By: #### C MP, [facility] CBC #### [address] Hematocrit (Bld) [Volume fraction] 43.4 % Normal 38.8-50.0 [facility] Comment on above: Performed By: #### C MP, [facility] CBC #### [place] [address] [place] Hemoglobin (Bld) [Mass/Vol] 15.1 g/dL Normal 13.0-17.0 [facility] Comment on above: Performed By: #### C MP, [facility] CBC #### [place] [address] [place] Lymphocytes (Bld) [#/Vol] 3.5 10*3/uL Normal 1.00-4.8 [facility] Comment on above: Performed By: #### C MP, [facility] CBC #### [facility] [address] Lymphocytes/100 WBC (Bld) 38.0 % Normal . [facility] Comment on above: Performed By: #### C MP, [facility] CBC #### [facility] [address] MCH (RBC) [Entitic mass] 30.6 pg Normal 27.5-35.2 [facility] Comment on above: Performed By: #### C MP, [facility] CBC #### [facility] [address] MCV (RBC) [Entitic vol] 88.2 fL Normal 83.5-101 [facility] Comment on above: Performed By: #### C MP, [facility] CBC #### [facility] [address] Mean Corpuscular HGB Conc 34.7 g/dL Normal 32.5-35.6 [facility] Comment on above: Performed By: #### C MP, [facility] CBC #### [facility] [address] [place] [address] [place] Monocytes (Bld) [#/Vol] 0.7 10*3/uL Normal 0.0-0.8 [facility] Comment on above: Performed By: #### C MP, [facility] CBC #### [facility] [address] [place] [address] [place] Monocytes/100 WBC (Bld) 7.1 % Normal . [facility] Comment on above: Performed By: #### C MP, [facility] CBC #### [facility] [address] [place] [id number] [place] Neutrophils (Bld) [#/Vol] 4.5 10*3/uL Normal 1.8-7.7 [facility] Comment on above: Performed By: #### C MP, [facility] CBC #### [facility] [address] [place] [id number] [place] Neutrophils/100 WBC (Bld) 48.9 % Normal . [facility] Comment on above: Performed By: #### C LIANA, [facility] CBC #### [address] NRBC% 0.2 /100{WBC} Normal 0-0.5 [facility] Comment on above: Performed By: #### C LIANA, [facility] CBC #### [address] Platelet mean volume (Bld) [Entitic vol] 9.6 fL Normal 6.6-10.1 [facility] Comment on above: Performed By: #### C LIANA, [facility] CBC #### [address] Platelets (Bld) [#/Vol] 230 10*3/uL Normal 150-450 [facility] Comment on above: Performed By: #### C LIANA, [facility] CBC #### [address] RBC (Bld) [#/Vol] 4.92 10*6/uL Normal 3.90-5.60 [facility] Comment on above: Performed By: #### C LIANA, [facility] CBC #### [address] WBC (Bld) [#/Vol] 9.2 10*3/uL Normal 4.1-10.5 [facility] Comment on above: Performed By: #### C LIANA, [facility] CBC #### [address] Comprehensive Metabolic Pane serafin 09-03-2023 Albumin [Mass/Vol] 4.6 g/dL Normal 3.5-5.7 [facility] Comment on above: Performed By: #### C LIANA, [facility] CBC #### [address] Albumin/Globulin [Mass ratio] 2.1 {ratio} Normal [facility] Comment on above: Performed By: #### C LIANA, [facility] CBC #### [address] ALP [Catalytic activity/Vol] 75 U/L Normal 34-104 [facility] Comment on above: Result Comment: PERF ORMED BY: [place] [address] PATHOLOGIST JUICE WEIGHER JOÃO YATES M.D. Performed By: #### C MP, [facility] CBC #### [address] ALT [Catalytic activity/Vol] 29 U/L Normal 7-52 [facility] Comment on above: Performed By: #### C MP, [facility] CBC #### [address] Anion gap [Moles/Vol] 11.4 mmol/L Normal 6.0-15.0 [facility] e [facility] Comment on above: Performed By: #### C MP, [facility] CBC #### [address] AST [Catalytic activity/Vol] 20 U/L Normal 13-39 [facility] Comment on above: Performed By: #### C MP, [facility] CBC #### [place] [address] [place] Bilirubin [Mass/Vol] 1.3 mg/dL High 0.3-1.0 [facility] Comment on above: Result Comment: Samp les from patients who have taken Naproxen have shown spurious elevation in Total Bilirubin levels. A metabolite of Naproxen, O-desmethylnaproxen, has been shown to interfere with the Jendrassik-Grof method for measuring Total Bilirubin. Performed By: #### C MP, [facility] CBC #### [place] [address] [place] Calcium [Mass/Vol] 9.5 mg/dL Normal 8.6-10.3 [facility] Comment on above: Performed By: #### C MP, [facility] CBC #### [place] [address] [place] Chloride [Moles/Vol] 103 mmol/L Normal 98-107 [facility] Comment on above: Performed By: #### C MP, [facility] CBC #### [facility] [address] CO2 [Moles/Vol] 27.6 mmol/L Normal 21.0-31.[address] [facility] Comment on above: Performed By: #### C LIANA, [facility] CBC #### [facility] [address] Creatinine [Mass/Vol] 1.22 mg/dL Normal 0.70-1.30 [facility] Comment on above: Performed By: #### C LIANA, [facility] CBC #### [place] [address] [place] GFR/1.73 sq M.predicted MDRD (S/P/Bld) [Vol rate/Area] mL/min/{1.73_m2} Normal [facility] Comment on above: Performed By: #### C LIANA, [facility] CBC #### [address] Globulin (S) [Mass/Vol] 2.2 g/dL Normal T he [facility] Comment on above: Performed By: #### C LIANA, [facility] CBC #### [address] Glucose [Mass/Vol] 117 mg/dL High 70-100 [facility] Comment on above: Result Comment: [place] Glucose Reference Range is dependent on time and content of last meal. Glucose of more than 200 mg/dL in a nonstressed, ambulatory subject supports the diagnosis of Diabetes Mellitus. ADA recommended reference range Performed By: #### C LIANA, [facility] CBC #### [place] [address] [place] Potassium [Moles/Vol] 4.0 mmol/L Normal 3.5-5.1 [facility] Comment on above: Performed By: #### C LIANA, [facility] CBC #### [address] Protein [Mass/Vol] 6.8 g/dL Normal 6.4-8.9 [facility] Comment on above: Performed By: #### C LIANA, [facility] CBC #### [address] [place] [address] [place] Sodium [Moles/Vol] 138 mmol/L Normal 136-145 [facility] Comment on above: Performed By: #### C MP, [facility] CBC #### [facility] [address] Urea nitrogen [Mass/Vol] 11 mg/dL Normal 7-25 [facility] Comment on above: Performed By: #### C MP, [facility] CBC #### [facility] [address] Creatinine [Mass/volume] in Serum or PlasmaOrdered By: Manjinder Lynn on 09-03-2023 Creatinine [Mass/Vol] 1.22 mg/dL 0.70-1.30 [facility] Eosinophils Auto (Bld) [#/Vo l]Ordered By: Manjinder Lynn on 09-03-2023 Eosinophils (Bld) [#/Vol] 0.4 10*3/uL 0.0-0.45 [facility] Eosinophils/100 WBC Auto (Bl d)Ordered By: Manjinder Lynn on 09-03-2023 Eosinophils/100 WBC (Bld) 4.9 % . [facility] Erythrocyte distribution wid th Auto (RBC) [Ratio]Ordered By: Manjinder Lynn on 09-03-2023 Erythrocyte distribution width (RBC) [Ratio] 13.4 % 12.0-14.8 [facility] Globulin Calc (S) [Mass/Vol] Ordered By: Manjinder Lynn on 09-03-2023 Globulin (S) [Mass/Vol] 2.2 g/dL [facility] Glucose [Mass/volume] in Ser um or PlasmaOrdered By: Manjinder Lynn on 09-03-2023 Glucose [Mass/Vol] 117 mg/dL 70-100 [facility] Comment on above: ADA recommended refe rence rangeRandom Glucose Reference Range is dependent on time and content of last meal. Glucose of more than 200 mg/dL in a nonstressed, ambulatory subject supports the diagnosis of Diabetes Mellitus. Hematocrit Auto (Bld) [Volum e fraction]Ordered By: Manjinder Lynn on 09-03-2023 Hematocrit (Bld) [Volume fraction] 43.4 % 38.8-50.0 [facility] Hemoglobin [Mass/volume] in BloodOrdered By: Manjinder Lynn on 09-03-2023 Hemoglobin (Bld) [Mass/Vol] 15.1 g/dL 13.0-17.0 [facility] Leukocytes [#/volume] correc padma for nucleated erythrocytes in Blood by Automated counOrdered By: Manjinder Lynn on 09-03-2023 WBC corrected for nucl RBC Auto (Bld) [#/Vol] 9.2 10*3/uL 4.1-10.5 [facility] Lymphocytes Auto (Bld) [#/Vo l]Ordered By: Manjinder Lynn on 09-03-2023 Lymphocytes (Bld) [#/Vol] 3.5 10*3/uL 1.00-4.8 [facility] Lymphocytes/100 WBC Auto (Bl d)Ordered By: Manjinder Lynn on 09-03-2023 Lymphocytes/100 WBC (Bld) 38.0 % . [facility] MCH Auto (RBC) [Entitic mass ]Ordered By: Manjinder Lynn on 09-03-2023 MCH (RBC) [Entitic mass] 30.6 pg 27.5-35.2 [facility] MCHC Auto (RBC) [Mass/Vol]Or dered By: Manjinder Lynn on 09-03-2023 MCHC (RBC) [Mass/Vol] 34.7 g/dL 32.5-35.6 [facility] MCV Auto (RBC) [Entitic vol] Ordered By: Manjinder Lynn on 09-03-2023 MCV (RBC) [Entitic vol] 88.2 fL 83.5-101 [facility] Monocytes Auto (Bld) [#/Vol] Ordered By: Manjinder Lynn on 09-03-2023 Monocytes (Bld) [#/Vol] 0.7 10*3/uL 0.0-0.8 [facility] Monocytes/100 WBC Auto (Bld) Ordered By: Manjinder Lynn on 09-03-2023 Monocytes/100 WBC (Bld) 7.1 % . [facility] Neutrophils Auto (Bld) [#/Vo l]Ordered By: Manjinder Lynn on 09-03-2023 Neutrophils (Bld) [#/Vol] 4.5 10*3/uL 1.8-7.7 [facility] Neutrophils/100 WBC Auto (Bl d)Ordered By: Manjinder Lynn on 09-03-2023 Neutrophils/100 WBC (Bld) 48.9 % . [facility] No Panel InformationOrdered By: Manjinder Lynn on 09-03-2023 Estimated GFR (CKD-EPI) > 60.0 mL/Min [facility] Creatinine Clearance (Chem N/A [facility] Nucleated erythrocytes [Pres ence] in Blood by Automated countOrdered By: Manjinder Lynn on 09-03-2023 Nucleated RBC Auto Ql (Bld) 0.2 /100{WBC} 0-0.5 [facility] Platelet mean volume Auto (B ld) [Entitic vol]Ordered By: Manjinder Lynn on 09-03-2023 Platelet mean volume (Bld) [Entitic vol] 9.6 fL 6.6-10.1 [facility] Platelets Auto (Bld) [#/Vol] Ordered By: Manjinder Lynn on 09-03-2023 Platelets (Bld) [#/Vol] 230 10*3/uL 150-450 [facility] Potassium [Moles/volume] in Serum or PlasmaOrdered By: Manjinder Lynn on 09-03-2023 Potassium [Moles/Vol] 4.0 mmol/L 3.5-5.1 [facility] Protein [Mass/volume] in Ser um or PlasmaOrdered By: Manjinder Lynn on 09-03-2023 Protein [Mass/Vol] 6.8 g/dL 6.4-8.9 [facility] RBC Auto (Bld) [#/Vol]Ordere d By: Manjinder Lynn on 09-03-2023 RBC (Bld) [#/Vol] 4.92 10*6/uL 3.90-5.60 [facility] Serum or plasma albumin/glob ulin mass ratioOrdered By: Manjinder Lynn on 09-03-2023 Albumin/Globulin [Mass ratio] 2.1 {ratio} [facility] Serum or plasma anion gap de terminationOrdered By: Manjinder Lynn on 09-03-2023 Anion gap [Moles/Vol] 11.4 mmol/L 6.0-15.0 [facility] Sodium [Moles/volume] in Ser um or PlasmaOrdered By: Manjinder Lynn on 09-03-2023 Sodium [Moles/Vol] 138 mmol/L 136-145 [facility] Urea nitrogen [Mass/volume] in Serum or PlasmaOrdered By: Manjinder Lynn on 09-03-2023 Urea nitrogen [Mass/Vol] 11 mg/dL 7-25 [facility] WBC Auto (Bld) [#/Vol]Ordere d By: Manjinder Lynn on 09-03-2023 WBC (Bld) [#/Vol] 9.2 10*3/uL 4.1-10.5 [facility] XR chest 1Von 09-03-2023 XR chest 1V [facility] [address] XRay Report Signed Patient: Cas Calhoun MR#: [id number] : 1980 Acct:[id number] Age/Sex: 43 / M ADM Date: 09/03/23 Loc: [place] Room: Type: [facility] Attending Dr: Manjinder Lynn Jr, DO Copies [...] Pelon Salazar M.D.09/03/2023 1:17 PM Dictation Location: [place] [address] Transcribed By: [facility] 09/03/23 1317 Dictated By: Pelon Salazar DO 09/03/23 1317 Signed By: 09/03/23 1317 Normal [facility] Complete Blood Counton 08-07 Erythrocyte distribution width (RBC) [Ratio] 13.0 % Normal 11.0-15.0 [facility] Specialist Comment on above: Performed By: #### L IPD, CBC, CMP #### [facility] [address] [place], [place] [id number] Hematocrit (Bld) [Volume fraction] 46.2 % Normal 38.5-50.0 [facility] Specialist Comment on above: Performed By: #### L IPD, CBC, CMP #### [facility] [address] [place], [place] [id number] Hemoglobin (Bld) [Mass/Vol] 15.6 g/dL Normal 13.0-17.1 [facility] Specialist Comment on above: Performed By: #### L IPD, CBC, CMP #### [facility] [address] [place], [place] [id number] MCH (RBC) [Entitic mass] 29.8 pg Normal 27.0-33.0 [facility] Comment on above: Performed By: #### L IPD, CBC, CMP #### [facility] [address] [place], [place] [id number] MCHC (RBC) [Mass/Vol] 33.8 g/dL Normal 32.0-36.0 [facility] Comment on above: Performed By: #### L IPD, CBC, CMP #### [facility] [address] [place], [place] [id number] MCV (RBC) [Entitic vol] 88 fL Normal 80-100 [facility] Comment on above: Performed By: #### L IPD, CBC, CMP #### [facility] [address] [place], [place] [id number] Platelet mean volume (Bld) [Entitic vol] 11.20 fL Normal 7.50-12.50 [facility] Specialist Comment on above: Performed By: #### L IPD, CBC, CMP #### [facility] [address] [place], [place] [id number] Platelets (Bld) [#/Vol] 231 10*3/uL Normal 140-400 [facility] Specialist Comment on above: Performed By: #### L IPD, CBC, CMP #### [facility] [address] [place], [place] [id number] RBC (Bld) [#/Vol] 5.24 10*6/uL Normal 4.20-5.80 [facility] Specialist Comment on above: Performed By: #### L IPD, CBC, CMP #### [facility] [address] [place], [place] [id number] RDW-SD 42.1 fL Normal 37.0-50.0 [facility] Specialist Comment on above: Performed By: #### L IPD, CBC, CMP #### [facility] [address] [place], [place] [id number] WBC (Bld) [#/Vol] 9.2 10*3/uL Normal 3.8-11.0 [facility] Comment on above: Performed By: #### L IPD, CBC, CMP #### [facility] [address] [place], [place] [id number] Comprehensive Metabolic Pane [facility] 08-07-2021 Albumin [Mass/Vol] 4.7 g/dL Normal 3.6-5.1 [facility] Comment on above: Performed By: #### L IPD, CBC, CMP #### [facility] [address] [place], [place] [id number] Albumin/Globulin [Mass ratio] 2.4 {ratio} Normal 1.0-2.5 [facility] Specialist Comment on above: Performed By: #### L IPD, CBC, CMP #### [facility] [address] [place], [place] [id number] ALP [Catalytic activity/Vol] 76 U/L Normal 40-129 [facility] Specialist Comment on above: Performed By: #### L IPD, CBC, CMP #### [facility] [address] [place], [place] [id number] ALT [Catalytic activity/Vol] 52 U/L High 9-46 [facility] Specialist Comment on above: Result Comment: 03/28 Female reference range changed. Performed By: #### L IPD, CBC, CMP #### [facility] [address] [place], [place] [id number] Anion gap [Moles/Vol] 18 mmol/L Normal 12-20 [facility] Comment on above: Result Comment: [place] ctive 05/03/2019 reference range changed. Performed By: #### L IPD, CBC, CMP #### [facility] [address] [place], [place] [id number] AST [Catalytic activity/Vol] 36 U/L Normal 10-40 [facility] Comment on above: Performed By: #### L IPD, CBC, CMP #### [facility] [address] [place], [place] [id number] Bilirubin [Mass/Vol] 1.27 mg/dL High 0.30-1.20 [facility] Comment on above: Performed By: #### L IPD, CBC, CMP #### [facility] [address] [place], [place] [id number] BUN/CREA 10 Ratio Normal 6-22 [facility] Comment on above: Performed By: #### L IPD, CBC, CMP #### [facility] [address] [place], [place] [id number] Calcium [Mass/Vol] 9.6 mg/dL Normal 8.6-10.2 [facility] Comment on above: Performed By: #### L IPD, CBC, CMP #### [facility] [address] [place], [place] [id number] Chloride [Moles/Vol] 104 mmol/L Normal 98-107 [facility] Comment on above: Performed By: #### L IPD, CBC, CMP #### [facility] [address] [place], [place] [id number] CO2 [Moles/Vol] 22 mmol/L Normal 20-31 [facility] Comment on above: Performed By: #### L IPD, CBC, CMP #### [facility] [address] [place], [place] [id number] Creatinine [Mass/Vol] 1.0 mg/dL Normal 0.7-1.4 [facility] Comment on above: Performed By: #### L IPD, CBC, CMP #### [facility] [address] [place], [place] [id number] eGFRAA 96 mL/min/1.73m2 Normal >60 [facility] Specialist Comment on above: Performed By: #### L IPD, CBC, CMP #### [facility] [address] [place], [place] [id number] eGFRNAA 80 mL/min/1.73m2 Normal >60 [facility] Specialist Comment on above: Performed By: #### L IPD, CBC, CMP #### [facility] [address] [place], [place] [id number] Globulin (S) [Mass/Vol] 2.0 g/dL Normal 1.9-3.7 [facility] Comment on above: Performed By: #### L IPD, CBC, CMP #### [facility] [address] [place], [place] [id number] Glucose [Mass/Vol] 76 mg/dL Normal 65-99 [facility] Comment on above: Result Comment: For FASTING Glucose --- ADA reference ranges: Normal 65-99 mg/dl Prediabetes 100-125 Diabetes >/= 126 Performed By: #### L IPD, CBC, CMP #### [facility] [address] [place], [place] [id number] Potassium [Moles/Vol] 4.7 mmol/L Normal 3.5-5.5 [facility] Specialist Comment on above: Result Comment: Spec imen is hemolyzed. Results may be affected. Performed By: #### L IPD, CBC, CMP #### [facility] [address] [place], [place] [id number] Protein [Mass/Vol] 6.7 g/dL Normal 6.1-8.1 [facility] Comment on above: Performed By: #### L IPD, CBC, CMP #### [facility] [address] [place], [place] [id number] Sodium [Moles/Vol] 139 mmol/L Normal 135-146 [facility] Comment on above: Performed By: #### L IPD, CBC, CMP #### [facility] [address] [place], [place] [id number] Urea nitrogen [Mass/Vol] 11 mg/dL Normal 7-25 [facility] Coordinator Comment on above: Performed By: #### L IPD, CBC, CMP #### [facility] [address] [place], [place] [id number] Lipid Panelon 08-07-2021 Cholesterol [Mass/Vol] 154 mg/dL Normal 125-200 [facility] Comment on above: Result Comment: Low risk < 200mg/dL Borderline risk 201-239 mg/dl High risk > or equal to 240 Performed By: #### L IPD, CBC, CMP #### [facility] [address] [place], [place] [id number] Cholesterol in HDL [Mass/Vol] 40 mg/dL Low >40 [facility] Specialist Comment on above: Result Comment: High Cardiovascular Risk HDL <40 mg/dL Low Cardiovascular Risk HDL > or equal to 60 mg/dl Performed By: #### L IPD, CBC, CMP #### [facility] [address] [place], [place] [id number] Cholesterol in LDL [Mass/Vol] 88 mg/dL Normal [facility] Specialist Comment on above: Result Comment: LDL ATP III CLASSIFICATION LDL less than 100 mg/dl Optimal LDL 100-129 mg/dl Near or above optimal LDL 130-159 Borderline high LDL 160-189 High LDL greater than 189 mg/dl Very High Performed By: #### L IPD, CBC, CMP #### [facility] [address], [place] [id number] Cholesterol in VLDL [Mass/Vol] 26 mg/dL Normal [facility] Specialist Comment on above: Performed By: #### L IPD, CBC, CMP #### [facility] [address], [place] [id number] Cholesterol.total/Choles terol in HDL [Mass ratio] 4 {ratio} Normal [facility] Specialist Comment on above: Performed By: #### L IPD, CBC, CMP #### [facility] [address], [place] [id number] Triglyceride [Mass/Vol] 129 mg/dL Normal 30-150 N [address] [facility] Comment on above: Result Comment: TRIG ATPIII CLASSIFICATIONS TRIG less than 150 mg/dl Normal TRIG 150-199 mg/dl Borderline High TRIG 200-500 mg/dl High TRIG greather than 500 mg/dl Very High Performed By: #### L IPD, CBC, CMP #### [facility] [address], [place] [id number] NR MR L-SPINE WO/W CONTRASTo n 01-13-2019 NR MR L-SPINE WO/W CONTRAST Patient Name: CAS CALHOUN STUDY: MR L-SPINE WO/W CONTRAST; 01/13/2019 10:05 am INDICATION: Radiculopathy, lumbar region. History of laminectomy. Right leg pain and numbness. COMPARISON: None. ACCESSION NUMBER(S): [id number] ORDERING CLINICIAN: AEDLITA HENRY TECHNIQUE: Multisequential MR images of the [...] Electronically signed by: BJ MUNGUIA MD Normal [facility] XR LUMBAR SPINE (MIN 4 VIEWS )on 12-17-2018 XR LUMBAR SPINE (MIN 4 VIEWS) Radiology exam is complete. No Radiologist dictation. Please follow up with ordering provider. Final result Normal [facility] Radiology exam is complete. No Radiologist dictation. Please follow up with ordering provider. [facility] [place], [place] Established Visit (Otolaryng ology)on 03-02-2018 Established Visit (Otolaryngology) Chief ComplaintNew patient suspected cholesteatoma History of Present IllnessHere today for mastoid bowl cleaning and follow up. Denies any interval otologic complaints since last being seen. Recall: 37 year old male referred by Dr. Head. [place] he was a child in [place] had a chronically draining ear and underwent [...] assist you through your ENT care at [facility].Dr. Chicas is an Ear surgeon. This means that he specializes in taking care of patients with complex ear problems.Dr. Chicas's office number is [phone]. While you may see him at a satellite office, she has a team committed to help meet your healthcare needs at [facility]'s main campus. This number is the most direct way to communicate with the office.Audra is Dr. Padilla secretary administrative assistant and she answers the office phone from [...] may include dieticians, social workers, speech therapists, machine setter, neurologist, and physical therapist. Dr. Chicas will provide these referrals as needed. Please let him know if you would like to request a specific referral.For your convenience, Dr. Chicas sees patients at several [facility] locations including [facility], [facility], and [facility]. While we try to make your appointments [...] Mar 02 2018 2:05PM EST (Author) Normal [facility] Initial Visit (Otolaryngolog y)on 09-29-2017 Initial Visit (Otolaryngology) Chief ComplaintNew patient suspected cholesteatoma History of Present [age]guogbk6 year old male referred by Dr. Head. When he was a child in [place] had a chronically draining ear and underwent [...] AM Vitals Vital Signs Recorded: 29Sep2017 11:23AMHeart [id number] etuvr76Vldzxd0 ft 2 bpWcowdr668 lb BMI Bqlcvykyta62.65BSA Calculated2.59 Physical ExamCONSTITUTIONAL: No acute distressVOICE: No [...] assist you through your ENT care at [facility].Dr. Chicas is an Ear surgeon. This means that he specializes in taking care of patients with complex ear problems.Dr. Chicas's office number is [phone]. While you may see him at a satellite office, she has a team committed to help meet your healthcare needs at [facility]'s main campus. This number is the most direct way to communicate with the office.Audra is Dr. Padilla secretary administrative assistant and she answers the office phone from [...] may include dieticians, social workers, speech therapists, machine setter, neurologist, and physical therapist. Dr. Chicas will provide these referrals as needed. Please let him know if you would like to request a specific referral.For your convenience, Dr. Chicas sees patients at several [facility] locations including [facility], [facility], and [facility]. While we try to make your appointments [...] -Retrospective By Protocol Authorization Ordered Normal [facility] Vital Signs Date Time Vital Sign Value Performing Clinician Faci lity 06-15-2024 15:36-0500 Body height 188 cm Al aMrin DO Work Phone: [facility] 06-15-2024 15:36-0500 Body mass index (BMI) [Ratio] 36.59 kg/m2 Al Marin DO Work Phone: [facility] 06-15-2024 15:36-0500 Body weight 129.28 kg Al Marin DO Work Phone: [facility] 04-05-2024 07:58-0500 Body height 188 cm Adelita Epperson MD Work Phone: [facility] 04-05-2024 07:58-0500 Body mass index (BMI) [Ratio] 36.59 kg/m2 Adelita Epperson MD Work Phone: [facility] 04-05-2024 07:58-0500 Body weight 129.28 kg Adelita Epperson MD Work Phone: [facility] 04-05-2024 07:58-0500 Diastolic blood pressure 60 mm[Hg] Adelita Epperson MD Work Phone: [facility] 04-05-2024 07:58-0500 Heart rate 90 /min Adelita Epperson MD Work Phone: [facility] 04-05-2024 07:58-0500 SaO2% (BldA) [Mass fraction] 98 % Adelita Epperson MD Work Phone: [facility] 04-05-2024 07:58-0500 Systolic blood pressure 126 mm[Hg] Adelita Epperson MD Work Phone: [facility] Healthcare Encounters Encounter Date Encounter Type Care Provider Facility Start: 07-05-2024 End: 07-05-2024 ambulatory Laura Luevano MD Facility:[facility] Start: 06-15-2024 End: 06-15-2024 Office outpatient visit 15 minutes Al Marin DO Work Phone: [facility] NICOL Comment on above: History of cholestea shayla (Primary Dx); Chronic mastoiditis of left side; Hearing loss of left ear, unspecified hearing loss type Start: 06-15-2024 End: 06-15-2024 ambulatory AL MARIN Not Available Start: 05-30-2024 End: 05-31-2024 Refill Adelita Epperson MD Work Phone: [facility] IM Comment on above: Obesity (BMI 30-39.9 ) Start: 04-23-2024 End: 04-23-2024 ambulatory ERIN CHIRINOS Not Available Start: 04-07-2024 End: 04-08-2024 Refill Adelita Epperson MD Work Phone: [facility] Comment on above: Obesity (BMI 30-39.9 ) Start: 04-05-2024 End: 04-05-2024 Office outpatient visit 25 minutes Adelita Epperson MD Work Phone: [facility] Comment on above: Osteoarthritis of sp ine with radiculopathy, lumbosacral region (Primary Dx); Severe obesity (BMI 35.0-39.9) with comorbidity (CMS/HCC); BMI 36.0-36.9,adult; Palpitations; Family history of early CAD; Cigarette nicotine dependence without complication; Annual physical exam; Medication management Start: 04-05-2024 End: 04-05-2024 Patient encounter procedure Adelita Epperson MD Work Phone: [facility] Start: 04-05-2024 End: 04-05-2024 ambulatory ADELITA EPPERSON Not Available Start: 03-24-2024 End: 03-24-2024 Refill Adelita Epperson MD Work Phone: [facility] Comment on above: Obesity (BMI 30-39.9 ) Start: 03-15-2024 End: 03-15-2024 ambulatory Laura Luevano MD Facility:[facility] Start: 03-02-2024 End: 03-02-2024 Orders Only Adelita Epperson MD Work Phone: [facility] Comment on above: Lumbar paraspinal mu scle spasm (Primary Dx); Lumbar radiculopathy Start: 02-10-2024 End: 02-11-2024 Refill Erin Chirinos TUBE BACKER Work Phone: [facility] Comment on above: Obesity (BMI 30-39.9 ) Start: 01-13-2024 End: 01-13-2024 Refill Adelita Epperson MD Work Phone: [facility] Comment on above: Obesity (BMI 30-39.9 ) Start: 01-05-2024 End: 01-05-2024 ambulatory Laura Luevano MD Facility:[facility] Start: 12-09-2023 End: 12-09-2023 ambulatory AL S BIEDENBACH Not Available Start: 11-25-2023 End: 11-25-2023 ambulatory AL S BIEDENBACH Not Available Start: 11-12-2023 End: 11-12-2023 ambulatory HANS LORD Not Available Start: 10-07-2023 End: 10-07-2023 ambulatory ADELITA EPPERSON Not Available Start: 09-11-2023 End: 09-11-2023 ambulatory AL S BICYNTHIA Not Available Start: 09-03-2023 End: 09-03-2023 ambulatory Manjinder Lynn Jr Facility:[facility] Start: 09-03-2023 End: 09-03-2023 ambulatory MD Adelita Epperson Work Phone: [facility] Work Phone: Start: 09-03-2023 End: 09-03-2023 Departed Referred MD Adelita Epperson Work Phone: [facility] [address] Work Phone: Start: 07-14-2023 End: 07-14-2023 ambulatory ADELITA EPPERSON Not Available Start: 06-24-2023 End: 06-24-2023 ambulatory TONYA Monroe SAMEER Not Available Start: 06-03-2023 Telephone encounter Laurie cameron TUBE BACKER Work Phone: [facility] Start: 09-05-2022 [...] Patient encounter procedure Adelita Epperson [facility]-Physical Therapy [place] Start: 12-17-2018 End: 12-20-2018 Patient encounter procedure ADELITA EPPERSON [facility] Start: 12-17-2018 End: 12-19-2018 Subsequent hospital visit by physician [facility] Radiology Comment on above: Low [...] 06/21/2025 3:45 PM EST [facility] [address] [place] [phone] Al Marin, DO [address] [address] [facility] Start: 10-11-2024 End: 10-11-2024 Patient encounter procedure 10/11/2024 8:15 AM EDT Office Visit [facility] [address] [place] [phone] Adelita Epperson MD [address] [place] [address] [facility] Start: 07-12-2024 End: 07-12-2024 Patient encounter procedure 07/12/2024 8:45 AM EDT Office Visit [facility] [address] [place] [phone] Adelita Epperson MD [address] [place] [address] [facility] Start: 06-15-2024 End: 06-15-2024 Patient encounter procedure 06/15/2024 3:45 PM EST Office Visit [facility] [place] [address] [place] [phone] Al Marin, DO [address] [place] [address] [facility] [place] Start: 02-03-2025 Influenza vaccination Influenza Vacc ine (#1) [facility] Comment on above: Postponed from 12/27 (Patient Refused) Start: 04-05-2024 End: 04-05-2024 Patient encounter procedure 04/05/2024 8:15 AM EST Office Visit [facility] [address] [place] [address] Adelita Epperson MD [address] [place] [address] [facility] Start: 03-11-2024 End: 03-11-2024 Patient encounter procedure 03/11/2024 3:15 PM EST Office Visit [facility] [address] [place] [phone] Al Marin, DO [address] [place] [address] [facility] Start: 03-02-2024 End: 03-02-2024 ambulatory 03/02/2024 10:30 AM EST Evaluation [facility] [address] [facility] [phone] Antonio Solomon, PT [address] [facility] [place] [phone] [facility] Start: 12-28-2023 Influenza vaccination Influenza Vacc ine (#1) [facility] Start: 08-26-2023 End: 08-26-2023 Patient encounter procedure 08/26/2023 3:45 PM EDT Office Visit [facility] [place] [address] [place] [phone] Al Marin, DO [address] [address] [facility] [place] Start: 07-14-2023 End: 07-14-2023 Patient encounter procedure 07/14/2023 8:45 AM EDT Office Visit [facility] [address] [place] [phone] Adelita Epperson MD [address] [place] [address] [facility] Start: 06-23-2023 End: 06-23-2023 Patient encounter procedure 06/23/2023 8:00 AM EST Office Visit [facility] [address] [place] [address] Laurie Haley, TUBE BACKER [address] [place] [address] [facility] Start: 06-16-2023 End: 06-16-2023 ambulatory 06/16/2023 4:15 PM EST Treatment [facility] [address] [place] [phone] Antonio Solomon, PT [address] [place] [address] [facility] PT Start: 06-09-2023 End: 06-09-2023 ambulatory 06/09/2023 4:30 PM EST [facility] [address] [facility] [place] [address] Antonio Solomon, PT [address] [place] [address] [facility] PT Start: 06-04-2023 End: 06-04-2024 MR Lumbar spine WO contrast MR lumbar spine wo contrast Imaging Routine DDD (degenerative disc disease), lumbar Lumbar herniated disc Expected: 06/04/2023 (Approximate), Expires: 06/04/2024 [facility] Work Phone: Comment on above: Expected: 06/04/2023 (Approximate), Expires: 06/04/2024 Start: 12-27-2022 Influenza vaccination Influenza Vacc ine (#1) [facility] Start: 12-27-2018 Influenza vaccination Flu vaccine (# 1) [place] Start: 1999 DTaP/Tdap/Td vaccine (1 - Tdap) DTaP/Tdap/Td vaccine (1 - Tdap) [place] Start: 1995 HIV screen HIV screen [place], [place] Start: 1993 Varicella Vaccine (1 of 2 - 13+ 2-dose series) Varicella Vaccine (1 of 2 - 13+ 2-dose series) [place] Start: 1986 Pneumococcal 0-64 ye ars Vaccine (1 of 1 - PPSV23) Pneumococcal 0-64 years Vaccine (1 of 1 - PPSV23) [place] Basic metabolic 1998 panel - Serum or Plasma Basic metabolic panel Lab Routine Annual physical exam Medication management Ordered: 04/05/2024 [facility] Work Phone: Comment on above: Ordered: 04/05/2024 CBC W Auto Different ial panel - Blood CBC and differential Lab Routine Annual physical exam Ordered: 04/05/2024 [facility] Comment on above: Ordered: 04/05/2024 Hepatic function 200 0 panel - Serum or Plasma Hepatic function panel Lab Routine Medication management Ordered: 04/05/2024 [facility] Comment on above: Ordered: 04/05/2024 Lipid 1996 panel - Serum or Plasma Lipid panel Lab Routine Severe obesity (BMI 35.0-39.9) with comorbidity (CMS/HCC) Annual physical exam Ordered: 04/05/2024 [facility] Comment on above: Ordered: 04/05/2024 Payers Date Payer Category Payer Self-pay [id number] 2020 Blue Cross Blue Shield [facility] [id number] 2020 Unknown [id number] [id number] .[id number] 2017 Private Health Insurance [id number] 2017 Private Health Insurance [employer] xxxxxxxxxx 2017-Present [phone] [address] [place] [address] xxxxxxxxxx [id number] .[id number] 1980 Unknown [id number] 2.16.840.1.067326.3.579.2 .356 1980 Unknown [id number] 2.16.840.1.575593.3.579.2 .356 1980 Unknown [id number] 2.16.840.1.408835.3.579.2 .356 1980 Unknown [id number] 2.16.840.1.238761.3.579.2 .185 1980 Unknown [id number] 2.16.840.1.320274.3.579.2 .593 1980 Unknown [id number] 2.16.840.1.810699.3.579.2 .593 1980 Unknown [id number] 2.16.840.1.970477.3.579.2 .593 1980 Unknown [id number] 2.16.840.1.512444.3.579.2 .593 1980 Unknown [id number] 2.16.840.1.738218.3.579.2 .593 1980 Unknown [id number] 2.16.840.1.522722.3.579.2 .593 1980 Unknown [id number] 2.16.840.1.636452.3.579.2 .1258 1980 Unknown [id number] 2.16.840.1.761582.3.579.2 .1258 1980 Unknown [id number] 2.16.840.1.986461.3.579.2 .1258 1980 Unknown [id number] 2.16.840.1.021020.3.579.2 .1258 1980 Unknown [id number] 2.16.840.1.700527.3.579.2 .1258 1980 Unknown [id number] 2.16.840.1.062801.3.579.2 .1258 1980 Unknown [id number] 2.16.840.1.920135.3.579.2 .1258 1980 Unknown [id number] 2.16840.1.400950.3.579.2 .1258 1980 Unknown [id number] 2.16.840.1.021113.3.579.2 .1258 1980 Unknown [id number] 2.16840.1.252410.3.579.2 .1258 1980 Unknown [id number] 2.16.840.1.905086.3.579.2 .1258 1980 Unknown [id number] 2.16840.1.696992.3.579.2 .1980 Unknown [id number] 2.16.840.1.538209.3.579.2 .1980 Unknown [id number] 2.16840.1.330151.3.579.2 .196 1959 Unknown [id number] Unknown [id number] 2.16.840.1.517696.3.579.2 .531 Social History Date Type Detail Facility Start: 04-28-1993 End: 10-07-2023 Tobacco smoking status NHIS Current every day smoker [facility] Start: 01-16-2018 End: 04-05-2024 Alcohol intake No [facility] Sex Assigned At Not on file [facility] [employer] [facility] Start: 1980 Sex Assigned At Male N [...] Presen t illness Narrative Subjective Patient ID: Cas Calhoun is a 44 y.o. male who [...] in 1 year documented in this encounter [facility] 04-05-2024 History of Presen t illness Narrative Images from the original note were not included. Cas Calhoun is a 43 y.o. male presents [...] He has also reduced his consumption of Zeerter energy drinks to two per day and [...] spondylosis without myelopathy 04/30/2016 Lymphedema 10/08/2018 Migraine ([facility]) Obesity (BMI 30-39.9) 02/24/2023 SURGICAL HISTORY: Past Surgical History: Procedure Laterality Date EPIDURAL BLOCK INJECTION 03/28/[address] Tom Love LUMBAR EPIDURAL INJECTION 2016 OTHER SURGICAL HISTORY 1987 Ear Surgery RADIOFREQUENCY ABLATION 2019 SPINE SURGERY [...] Hepatic function panel documented in this encounter [facility] 03-24-2024 Telephone encount er Note Pt requesting a refill on Adipex to [facility] [place] [facility] 03-24-2024 Miscellaneous Notes Formattin g of this note might be different from the original. Pt requesting a refill on Adipex to [facility] [place] documented in this encounter [facility] 06-03-2023 Telephone encount er Note Pt called back and would like to do MRI at [facility]. [facility] 06-03-2023 Miscellaneous Notes Formattin g of this note might be different from the original. Pt called back and would like to do MRI at [facility]. documented in this encounter [facility] 07-23-2022 Note PAIN MANAGEMENT CONS ULTATION CONSULTATION DATE: 07/23/2022 ADDENDUM: The dictation mentions denervation of the L4-5, L5-S1 facet joint under fluoroscopic guidance by using radiofrequency ablation on the left side. The dictation should read: Proceed with radiofrequency ablation of the L2-3, L4-5 levels under fluoroscopic guidance on the left side. [facility] 07-23-2022 Note PAIN MANAGEMENT CONS ULTATION CONSULTATION DATE: 07/23/2022 ADDENDUM: The dictation mentions denervation of the L4-5, L5-S1 facet joint under fluoroscopic guidance by using radiofrequency ablation on the left side. The dictation should read: Proceeded with radiofrequency ablation of the L2-3, L4-5 levels under fluoroscopic guidance on the left side. [facility] 07-23-2022 Note CONSULTATION CONSULTATION DATE: 07/23/2022 [...] to proceed with the outlined plan. [facility] 03-28-2022 Note CONSULTATION CONSULTATION DATE: 03/28/2022 [...] consistent with his stretches and has a kiln hand workload at work. He reports 0/10 pain [...] in six months' time for re-evaluation. [facility] 01-03-2022 Note CONSULTATION CONSULTATION DATE: 01/03/2022 [...] three months' time, unless otherwise indicated. [facility] 10-04-2021 Note CONSULTATION CONSULTATION DATE: 10/04/2021 [...] gluconate 800 mg q.h.s. in addition to qxvp-nxt-xrwjodk ibuprofen 600 mg q.a.m. before work. Daily stretching and the use of heat were encouraged to aid with the spasms. We discussed about different vitamin regimens and the patient was willing to try. He will be followed up in the clinic in three months' time unless otherwise indicated. The patient agrees with the plan of care. [facility] Signed and Approved by: SEAN WELLS . 10/11/2021 16:03:00 [facility] Evaluation note Diagnosis DDD (degenerative disc disease), lumbar- Primary Degeneration of lumbar or lumbosacral intervertebral disc Lumbar herniated disc documented in this encounter [facility] noteNo assessment [facility] Work Phone: Evaluation note* Diagnosis Obesity (BMI 30-39.9) documented in this encounter [facility]* Diagnosis Lumbar paraspinal muscle spasm- [...] Primary Severe obesity (BMI 35.0-39.9) with comorbidity ([facility]) BMI 36.0-36.9,adult Palpitations Family history of early [...] hearing loss type documented in this encounter [facility] Narrative* Rehabilitation - Outpatient (Routine) - Authorized Specialty Diagnoses / Procedures Referred By Selvin t Referred To Contact Physical Therapy Diagnoses Lumbar paraspinal muscle spasm Lumbar radiculopathy Procedures IN OFFICE/OUTPATIENT NEW HIGH MDM 60 MINUTES Adelita Epperson MD [address] [place] [address] Phone: tel: fax: Antonio Solomon, PT [address] [place] [address] Phone: tel: fax: Referral ID Status Reason Start Date Expiration Date Visits Requested Visits Authorized [id number] Authorized Consult and Treat 03/02/2024 08/29/2024 53 [...] FoundDocuments on File Type Date Recorded 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 Advance Directives and Living Will Power 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 Advance Directive Response Recorded Date/ Time Advance [...] disc Procedures MR lumbar spine wo Laurie Schmidt, TUBE BACKER [address] [place] [address] Referral ID Status Reason Start Date Expiration Date V isits Requested Visits Authorized [id number] Pending Review 06/04/2023 12/01/2023 1 1 Additional Source Comments (unrecognized sect ion and content) No Status Records FoundNo Status Records FoundNo Status Records FoundNo Status Records FoundNo Status Records FoundNo Status Records FoundNo Status Records FoundNo Status Records FoundNo Status Records Found INFORMATION SOURCE (unrecogn ized section and content) DATE CREATED AUTHOR 04/05/2018 [facility] DATE CREATED AUTHOR AUTHOR'S ORGANIZ ATION 04/05/2018 [facility] DATE CREATED AUTHOR AUTHOR'S ORGANIZ ATION 12/20/2018 [facility] DATE CREATED AUTHOR AUTHOR'S ORGANIZ ATION 01/31/2019 [facility] DATE CREATED AUTHOR AUTHOR'S ORGANIZ ATION 08/08/2021 [facility] dical Specialist DATE CREATED AUTHOR AUTHOR'S ORGANIZ ATION 08/09/2022 [facility] DATE CREATED AUTHOR AUTHOR'S ORGANIZ ATION 09/04/2023 [facility] DATE CREATED AUTHOR AUTHOR'S ORGANIZ ATION 06/17/2024 [facility] dical Specialists EPIC DATE CREATED AUTHOR AUTHOR'S ORGANIZ ATION 07/12/2024 [facility] Care Teams (unrecognized sec tion and content) Phosphoric Acid Supervisor Relationship Specialty Start Date End Date Adelita Epperson MD [address] [place] [address] PCP - General Internal Medicine 11/06/22 Team Status: Active Member Role Status Dates Adelita Epperson MD Primary Care Provider Active Team Status: Inactive Member Role Status Dates Adelita Epperson MD Primary Care Provider Active St art: September 03, 2023 End: September 03, 2023 Manjinder Lynn Jr, DO Attending Provider Active S tart: September 03, 2023 End: September 03, 2023 Phosphoric Acid Supervisor Relationship Specialty Start Date End Date Adelita Epperson MD [address] [place] [address] PCP - General Internal Medicine 11/06/22 Adelita Epperson MD [address] [place] [address] PCP - [place] [employer] 06/27/23 Phosphoric Acid Supervisor Relationship Specialty Start Date End Date Adelita Epperson MD [address] [place] [address] PCP - General Internal Medicine 11/06/22 Adelita Epperson MD [address] [place] [address] PCP - [place] [employer] 06/27/23 Phosphoric Acid Supervisor Relationship Specialty Start Date End Date Adelita Epperson MD [address] [place] [address] PCP - General Internal Medicine 11/06/22 Adelita Epperson MD [address] [place] [address] PCP - [place] [employer] 06/27/23 Phosphoric Acid Supervisor Relationship Specialty Start Date End Date Adelita Epperson MD [address] [place] [address] PCP - General Internal Medicine 11/06/22 Adelita Epperson MD [address] [place] [address] PCP - [place] [employer] 06/27/23 Phosphoric Acid Supervisor Relationship Specialty Start Date End Date Adelita Epperson MD [address] [place] [address] PCP - General Internal Medicine 11/06/22 Adelita Epperson MD [address] [place] [address] PCP - [place] [employer] 06/27/23 Phosphoric Acid Supervisor Relationship Specialty Start Date End Date Adelita Epperson MD [address] [place] [address] PCP - General Internal Medicine 11/06/22 Adelita Epperson MD [address] [place] [address] PCP - [place] [employer] 06/27/23 Goals (unrecognized section and content) Goals [...] BE BASED ON THE PRIMARY CLINICAL RECORDS. [employer] provides no warranty or guarantee of the accuracy or completeness of information in this document.
--- NOTE | 2024-07-15 07:53 | P.CN_ITS ---
Consult Note: HPI Data of Consult Patient: known to practice within the last 3 years Requesting Physician: Jeanette Castro NP Primary Care Provider: ADELITA EPPERSON Consult Narrative Reason for consult: f/u Narrative: Cas Calhoun a pleasant 44 year old male presents for evaluation and management of chronic low back pain secondary to lumbar spondylosis, lumbar DDD, lumbar stenosis. Longstanding hx of low back pain unresponsive to >6 weeks of PT/provider guided HEP, heat, ice, tylenol, NSAIDs. Recently underwent left L4-5 L5-S1 TFESI with 85% improvement in pain and functional ability ongoing. Pain 2/10 increasing midly at work with activity. LESLEY 12%. cc:: CC: Jeanette Castro NP Review of Systems ROS Status of ROS 10 or more systems reviewed and unremark able except as noted in history and below Musculoskeletal Reports: back pain PFSH PFSH Surgical History Hx of tonsillectomy ?Z90.89 - Acquired absence of other organs (ICD-10) History of tympanoplasty ?Z98.890 - Other specified postprocedural states (ICD-10) History of lumbar surgery ?Z98.890 - Other specified postprocedural states (ICD-10) Meds Home Medications and Allergies Home Medications ?Medication ?Instructions ?Recorded ?Confirmed ?Type thc gummies PO .qhs 07/03/23 History baclofen 10 mg tablet 10 mg PO .qhs 12/16/23 07/05/24 History Allergies Allergy/AdvReac Type Severity Reaction Status Date / Time No Known Drug Allergies Allergy Verified 03/15/24 06:54 Exam Constitutional Documenting provider has reviewed patient's vital signs: yes Common normals: no apparent distress, oriented x3, healthy appearing, alert and well nourished General appearance: cooperative HENMA Common normals: normocephalic, hearing grossly normal bilaterally and moist oral mucous membranes Head and scalp: normocephalic Eye Common normals: PERRL Pupil: PERRL Neck & C-Spine Common normals: full ROM General: normal visual inspection Chest Common normals: inspection of chest normal Respiratory Common normals: normal respiratory effort, no retractions and no use of accessory muscles Back & Pelvis Lumbar spine/lower back: normal to inspection; ROM not limited, no pain with ROM, no lumbar spinal tenderness and no paraspinal muscle tenderness Sacroiliac joints: SI joints normal Other: negative facet loading strength 5/5 in BLE sensation intact BLE Neuro Common normals: oriented x3, CN's II-XII intact bilaterally, moves all extremities, no focal motor deficits, no sensory deficits noted and deep tendon reflexes 2+ bilaterally Sensorium/orientation: alert Motor exam: strength 5/5 throughout and no movement abnormalities noted Psych Common normals: mental status grossly normal, thought process normal, cooperative, affect normal, speech normal and activity/motor behavior normal Speech: normal speech Thought process: normal thought process Results Additional Findings Additional findings: If on a controlled substance or opioids, I have checked an OARRS report on this patient and there are no aberrancies noted in the prescribing history.??If on a controlled substance or opioid a drug screen was completed and reviewed within the last year, and if there has not been a drug screen completed we ordered one today to monitor higher risk, state monitored pain medication use. As part of providing excellent, safe, comprehensive care, the following was completed at our patient's visit: 1. A medication reconciliation and review to ensure accurate knowledge of current/active medications, including asking our patients to inform us about any uhsp-gee-bsdjgqe medications or herbal remedies/nutritional supplements/alternative remedies. 2. A review to specifically ensure our patients have had annual screening for screening for depression, screening for tobacco use, and screening for unhealthy alcohol use. For concerning screenings had a discussion with the patient, provided patient education, and recommended follow-up with primary care provider when appropriate. If patient noted with a risk of falling, they received education on strength, gait, and balance training to prevent future risk of falling. Portions of this note may have been carried over from the previous visit and updated as appropriate. Please note this office utilizes paper charting in addition to the electronic medical record. A list of current medications, vitals, and PMH is available there as the clinical staff outside of myself do not have access to [employer] charting during the clinic day operations. As part of providing quality comprehensive care the current medications, vitals, and PMH were reviewed in the paper chart. Assessment and Plan Assessment and Plan (1) Lumbar stenosis with neurogenic claudication: (2) Lumbar spondylosis: (3) Myofascial pain: Plan continue HEP as tolerated continue baclofen 10-20mg BID PRN pain/spasms f/u 3 months, sooner if needed
== END 2024-07-15 07:38 | disposition home or self-care (01) ==
LOC: PM 07:37
PROVIDERS: PCP Internal Medicine; Visit Provider Nurse Practitioner
DX: M48.062 Spinal stenosis, lumbar region with neurogenic claudication (principal); M47.816 Spondylosis without myelopathy or radiculopathy, lumbar region; M79.18 Myalgia, other site
CPT/HCPCS: G0463

== ENCOUNTER 2024-09-23 13:44 | Outpatient (OUT) | payer BC, SELFPAY ==
--- NOTE | 2024-09-23 13:57 | PM.CN ---
Consult Note: HPI Data of Consult Patient: known to practice within the last 3 years Requesting Physician: Jeanette Castro NP Primary Care Provider: ADELITA EPPERSON Consult Narrative Reason for consult: f/u Narrative: Cas Calhoun a pleasant 44 year old male with longstanding low back pain secondary to lumbar spondylosis, lumbar DDD, and lumbar stenosis with NC presents for evaluation. Pt reports one fall with injury since last visit, in july he fell down four steps at home landing on his low back with increased pain since. no recent imaging. 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 currently utilzing aleve, baclofen, thc gummies PRN. has failed > 6 weeks of PT/provider guided HEP, heat, ice, tylenol, NSAIDs. cc:: CC: Jeanette Castro NP Review of Systems ROS Status of ROS 10 or more systems reviewed and unremarkable except as noted in history and below PFSH PFS Surgical History Hx of tonsillectomy ?Z90.89 - Acquired absence of other organs (ICD-10) History of tympanoplasty ?Z98.890 - Other specified postprocedural states (ICD-10) History of lumbar surgery ?Z98.890 - Other specified postprocedural states (ICD-10) Meds Home Medications and Allergies Home Medications ?Medication ?Instructions ?Recorded ?Confirmed ?Type thc gummies PO .qhs 07/03/23 History baclofen 10 mg tablet 10 mg PO .qhs 12/16/23 07/05/24 History Allergies Allergy/AdvReac Type Severity Reaction Status Date / Time No Known Drug Allergies Allergy Verified 03/15/24 06:54 Exam Constitutional Documenting provider has reviewed patient's vital signs: yes Common normals: no apparent distress, oriented x3, healthy appearing, alert and well nourished General appearance: cooperative HENMT Common normals: normocephalic, hearing grossly normal bilaterally and moist oral mucous membranes Head and scalp: normocephalic Eye Common normals: PERRL Pupil: PERRL Neck & C-Spine Common normals: full ROM General: normal visual inspection Chest Common normals: inspection of chest normal Respiratory Common normals: normal respiratory effort, no retractions and no use of accessory muscles Back & Pelvis Lumbar spine/lower back: ROM limited, pain with ROM and straight leg raise negative bilaterally Other: strength 5/5 in BLE, sensation intact BLE bilateral positive facet loading, right > left. tenderness noted right L3-5 facets Extremity Common normals: normal to inspection and full ROM Neuro Common normals: oriented x3 Sensorium/orientation: alert Psych Common normals: mental status grossly normal, thought process normal, cooperative, affect normal, speech normal and activity/motor behavior normal Speech: normal speech Thought process: normal thought process Results Additional Findings Additional findings: If on a controlled substance or opioids, I have checked an OARRS report on this patient and there are no aberrancies noted in the prescribing history.??If on a controlled substance or opioid a drug screen was completed and reviewed within the last year, and if there has not been a drug screen completed we ordered one today to monitor higher risk, state monitored pain medication use. As part of providing excellent, safe, comprehensive care, the following was completed at our patient's visit: 1. A medication reconciliation and review to ensure accurate knowledge of current/active medications, including asking our patients to inform us about any hqzy-byq-aldqqgy medications or herbal remedies/nutritional supplements/alternative remedies. 2. A review to specifically ensure our patients have had annual screening for screening for depression, screening for tobacco use, and screening for unhealthy alcohol use. For concerning screenings had a discussion with the patient, provided patient education, and recommended follow-up with primary care provider when appropriate. If patient noted with a risk of falling, they received education on strength, gait, and balance training to prevent future risk of falling. Portions of this note may have been carried over from the previous visit and updated as appropriate. Please note this office utilizes paper charting in addition to the electronic medical record. A list of current medications, vitals, and PMH is available there as the clinical staff outside of myself do not have access to [employer] charting during the clinic day operations. As part of providing quality comprehensive care the current medications, vitals, and PMH were reviewed in the paper chart. Assessment and Plan Assessment and Plan (1) Lumbar spondylosis: Assessment and Plan: The patient has had over 3 months of moderate to severe low back pain with functional impairment and inadequate response to conservative care including NSAIDS (unless there are contraindication such as concurrent blood thinners), multiple oral or topical pain medications, and home exercise program/physical therapy.? Patient has completed >6 weeks of guided home exercise program and/or formal physical therapy program without relief of their symptoms.? I have reviewed the imaging of the lumbar spine and no red flags were identified.? The Oswestry Disability Index was completed, and the patient scored a 22%.?}? We discussed the risks and benefits of the procedure with the patient, and we are NOT planning on using sedation as outlined in the guidelines from Medicare unless there is a documented reason that sedation would be strongly recommended.?? ?The procedure will be completed with fluoroscopic guidance.? (2) Myofascial pain: (3) Lumbar stenosis with neurogenic claudication: Plan stat lumbar xray with flexion to assess increased pain post fall bilateral L3-4 L4-5 facet medial branch block x2 for facet mediated low back pain in consideration of RFA continue current medications continue HEP as tolerated f/u after each injection
== END 2024-09-23 13:45 | disposition home or self-care (01) ==
LOC: PM 13:44
PROVIDERS: PCP Internal Medicine; Visit Provider Nurse Practitioner
DX: M47.816 Spondylosis without myelopathy or radiculopathy, lumbar region (principal); M79.18 Myalgia, other site; M48.062 Spinal stenosis, lumbar region with neurogenic claudication; M51.369 Other intervertebral disc degeneration, lumbar region without mention of lumbar back pain or lower extremity pain
CPT/HCPCS: 72114; G0463

== ENCOUNTER 2024-09-23 14:55 | Outpatient (OUT) | payer BC, SELFPAY ==
--- NOTE | 2024-09-23 14:59 | XR_ITS ---
[facility] [place] [address] Patient Name: LUÍS MORAN MRN: [id number] date: 1980 Sex: M Assigned Patient Location: [facility] Current Patient Location: [facility] Accession/Order Number: [id number] Exam Date: 09/23/2024 15:44 Report Date: 09/23/2024 15:46 At the request of: MARGIE BARRY NP Procedure: XR lumbar spine 6V w bending 7 views Lumbar Spinewith flexion extension HISTORY: Low back pain for one month fell downstairs COMPARISON: MRI lumbar spine 06/13/2023 POSTSURGICAL CHANGES: None BONY ALIGNMENT: Straightening. HYPERMOBILITY:No hypermobility LISTHESIS:None FRACTURE: None DEGENERATIVE CHANGES: Similar mild lower lumbar disc space narrowing. Facet degeneration. SOFT TISSUES: Unremarkable BONY MINERALIZATION:Adequate XR/XR lumbar spine 6V w bending IMPRESSION: No hypermobility. Similar lower lumbar degeneration. Impression dictated by: Pelon Salazar M.D. 09/23/2024 3:46 PM Dictation Location: [place] [address] Electronically authenticated by: [id number] Y Date: 09/23/2024 15:46
== END 2024-09-23 14:56 | disposition home or self-care (01) ==
LOC: RAD 14:56
PROVIDERS: PCP Internal Medicine; Visit Provider Nurse Practitioner
DX: M48.062 Spinal stenosis, lumbar region with neurogenic claudication (principal); M51.369 Other intervertebral disc degeneration, lumbar region without mention of lumbar back pain or lower extremity pain
CPT/HCPCS: 72114

== ENCOUNTER 2024-10-11 08:32 | Day surgery (SDC) | payer BC, SELFPAY ==
--- OUTSIDE RECORDS SUMMARY | 2024-10-11 08:35 | XMS_ITS | Encounter Summary ---
Author Organization [facility] Address [address] [place] [address] Care Team Providers Care Front End Loader Driver Name Role Phone Paulino Paez MD Primary Care Provider [phone] Pcp, No SENIOR COMPLIANCE ANALYST Primary Care Provider Unavailabl e Source Comments In the event this information is protected by the Federal Confidentiality of Alcohol and Drug AbusePatient Records regulations: The Federal rules restrict any use of the information to criminally investigate or prosecute any alcohol or drug abuse patient.[facility] Encounter Details Date Type Department Care Team (Late st Contact Info) Description 05/11/2012 Letters (in) [facility] [address] [place] [address] Pedro Mcfadden MD Social History Tobacco Use Types Packs/Day Years Used Date Smoking Tobacco: Every Day Alcohol Use Standard Drinks/Week Comments Not Asked 0 (1 standard drink = 0.6 oz pur e alcohol) Sex and Gender Information Value Date Recorded Sex Assigned at Not on file Legal Sex Male 8:31 AM EST Gender Identity Not on file Sexual Orientation Not on file documented as of this encounter Progress Notes * Danny Mcfadden - 05/11/2012 12:00 AM EST May 11, 2012 RE: [facility] #:[id number] Dear Dr. Paez: Thank you for asking me to see this 31-year-old patient for neurosurgical evaluation. For the last 8 years or so, there has been pain at the base of the spine, which is variable in intensity. This may involve the left anterior thigh as far as the knee. There is no subjective loss of strength or sensation. He can ambulate for about 2 months. Sphincter function has not been affected. Past medical history is unremarkable. The patient reports being 6 feet 2 inches tall and weighing 275 pounds. On examination, there is discomfort on palpation over the base of the spine. Flexion of the back is40 degrees and extension 10 degrees. There is full straight leg raising. Gait is normal as is sensation. MRI of the lumbar spine shows desiccation of the L4-5 and other disks. There is a central disk bulge at L3-4. There is some early formation of lateral recess stenosis at L5- S1. My recommendation is to begin a regime of weight loss and physiotherapy to address range of motion type exercises and strengthening. I gave the patient a prescription to do so. Although, the MRI is not normal, there is no striking or focal abnormality that would readily respond to decompression. I explained symptoms and signs to watch out for with respect to radicular and cauda equina involvement, and the patient will return on a p.r.n. basis. Thank you for this referral. Sincerely, Danny Mcfadden M.D., [facility] MJM:[id number] / cc: documented in this encounter Plan of Treatment Not on file documented as of this encounter Visit Diagnoses Not on filedocumented in this encounter Care Teams Front End Loader Driver Relationship Specialty Start Date End Date Paulino Paez MD PCP - General 11/28/09 11/09/21 Teena Gray APRN PCP - General 11/10/21 05/28/22 documented as of this encounter
--- OUTSIDE RECORDS SUMMARY | 2024-10-11 08:35 | XMS_ITS | Clinical Summary ---
[facility] Address [address] [place] [address] Care Team Providers Care Die Developer Name Role Phone Paulino Paez MD Primary Care Provider [phone] Allergies No known active allergies Medications naproxen (NAPROSYN) 375 MG tablet Take 375 mg by mouth as needed for Pain Active HYDROcodone-acet aminophen (NORCO) 5-325 MG per tablet 05/27/2017 Active Active Problems Problem Noted Date Diagnosed Date Lumbosacral spondylosis without myelopathy 06/24 Social History Tobacco Use Types Packs/Day Years Used Date Smoking Tobacco: Every Day Smokeless Tobacco: Never Alcohol Use Standard Drinks/Week Comments No 0 (1 standard drink = 0.6 oz pur e alcohol) Sex and Gender Information Value Date Recorded Sex Assigned at Not on file Legal Sex Male 3:56 PM EST Gender Identity Not on file Sexual Orientation Not on file Last Filed Vital Signs Vital Sign Reading Time Taken Comments Blood Pressure 128/87 01/16/2018 10:38 AM EDT Pulse 76 01/16/2018 10:38 AM EDT Temperature 36.3 C (97.4 F) 01/16/2018 10:12 AM EDT Respiratory Rate 16 01/16/2018 10:12 AM EDT Oxygen Saturation - - Inhaled Oxygen Concentration - - Weight 136.1 kg (300 lb) 01/16/2018 10:12 AM EDT Height 188 cm (6' 2 ) 01/16/2018 10:12 AM EDT Body Mass Index 38.52 01/16/2018 10:12 AM EDT Plan of Treatment Not on file Care Teams Die Developer Relationship Specialty Start Date End Date Paulino Paez MD PCP - General 06/30/17
--- OUTSIDE RECORDS SUMMARY | 2024-10-11 08:35 | XMS_ITS | Clinical Summary ---
Author Organization [facility] Address [facility] [place] [address] Care Team Providers Care Braddisher Name Role Phone Unavailable Primary Care Provider Unavailabl e Allergies No known active allergies Medications ibuprofen (MOTRIN) 800 mg ORAL tablet Take 800 mg by mouth every 6 hours as needed. Active CYCLOBENZAPRINE HCL (FLEXERIL ORAL) Take by mouth. Take 1 tablet every 8 hours Active oxyCODONE-Acetam inophen (PERCOCET) 7.5-500 mg per tablet Take 1 tablet by mouth every 4 hours as needed. Active naproxen (NAPROSYN) 500 mg tablet Take 1 tablet by mouth twice daily with meals. FOR PAIN. TAKE WITH FOOD. 60 tablet 0 07/31/2012 Active Active Problems Problem Noted Date Diagnosed Date Displacement of lumbar inter vertebral disc without myelopathy 01/24/2010 Social History Tobacco Use Types Packs/Day Years Used Date Smoking Tobacco: Every Day Cigarettes Smokeless Tobacco: Never Alcohol Use Standard Drinks/Week Comments Not Asked 0 (1 standard drink = 0.6 oz pur e alcohol) Sex and Gender Information Value Date Recorded Sex Assigned at Not on file Legal Sex Male 8:31 AM EST Gender Identity Not on file Sexual Orientation Not on file Last Filed Vital Signs Vital Sign Reading Time Taken Comments Blood Pressure 138/76 07/31/2012 1:30 PM EDT Pulse 90 07/31/2012 1:30 PM EDT Temperature - - Respiratory Rate - - Oxygen Saturation - - Inhaled Oxygen Concentration - - Weight 124.7 kg (275 lb) 05/07/2012 2:40 PM EST Height 188 cm (6' 2 ) 05/07/2012 2:40 PM EST Body Mass Index 35.31 05/07/2012 2:40 PM EST Plan of Treatment Health Maintenance Due Date Last Done Comments Anxiety Screening 1998 Depression Screening 1998 HIV Screening 1998 Hepatitis C Screening 1998 DTaP,Tdap,Td Vaccine (1 - Tdap) 1999 Hepatitis B Vaccine (1 of 3 - 19+ 3-dose series) 05/16 Lipid Screening 2015 Covid-19 Vaccine ( season) 2023 Influenza Vaccine (Season Ended) 2024 Insurance [employer]
--- OUTSIDE RECORDS SUMMARY | 2024-10-11 08:51 | XMS_ITS | CCD ---
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 Name Role Phone Jennifer Muller Unavailable Unavailable [...] Unavailable Adelita Epperson MD Primary Care Provider [phone] Manjinder Lynn Jr Attending Unavailable Manjinder Lynn Jr Admitting Unavailable Adelita Epperson Primary Care Unavailable MD Adelita Epperson Primary Care Provider DO Manjinder Lynn Jr Attending Provider [phone] Adelita Epperson MD Unavailable Chloé CID, Laura Gutierrez Attending Unavailable Chloé CID, Laura Gutierrez Attending Unavailable Chloé CID, Laura Gutierrez Attending Unavailable AL MARIN Attending Unavailable ADELITA EPPERSON Attending Unavailable ADELITA EPPERSON Attending Unavailable WILFRIDO MORENO Attending UnavailWILFRIDO Mchugh Attending UnavailHANS Sun Attending Unavailable AL MARIN Attending Unavailable AL MARIN Attending Unavailable ANTONIO SOLOMON Attending Unavailable ADELITA EPPERSON Referring Unavailable ADELITA EPPERSON Attending ERIN Barnes Attending Unavailable Unavailable Unavailable Unavailable Medications Current [...] 5-325 MG per tablet Cannabinoids (medical cannabis) (20 sources) Cannabinoids (medical cannabis) Active Cannabinoids (me dical cannabis) Medicinal Marijuana Active Cannabinoids (me dical cannabis) Medicinal Marijuana 0 Active ibuprofen 800 mg oral tablet (20 sources) Nonsteroidal Anti-inflammatory Drug take 1 tablet by mouth every six hours as needed ibuprofen 800 MG tablet Take 800 mg by mouth every 6 (six) hours if needed Active ketoconazole 20 mg/ml topical cream (2 sources) Azole Antifungal Start: End: ketoconazole (NIZOral) 2 % cream Indications: Tinea pedis of both feet Apply topically Daily Apply to plantar foot and webspaces bilaterally daily 60 g 2 10/08/2024 11/07/2024 Active naproxen 375 mg oral tablet (1 source) Nonsteroidal Anti-inflammatory Drug naproxen (NAPROSY N) 375 MG tablet Take 375 mg by mouth as needed for Pain 0 Active phentermine hydrochloride 37.5 mg oral tablet (20 sources) Sympathomimetic Amine Anorectic Start: take 1 tablet by mouth before mealtime phentermine (Adipex-P) 37.5 MG tablet Indications: Obesity (BMI 30-39.9) Take 1 tablet (37.5 mg) by mouth in the morning. Take before meals. 90 tablet 07/19/2024 Active Start: 03-24-2024 End: 05-30-2024 take 1 tablet by mouth before mealtime [...] Take before meals. 30 tablet 03/24/2024 Active sulfamethoxazole 800 mg / trimethoprim 160 mg oral tablet (4 sources) Dihydrofolate Reductase Inhibitor Antibacterial, Sulfonamide Antimicrobial Start: 08-25-2024 End: 09-04-2024 take 1 tablet by mouth once sulfamethoxazole-trimethoprim (Bactrim DS) 800-160 MG per tablet Indications: Cellulitis of groin , Groin abscess Take 1 tablet by mouth every 12 (twelve) hours for 10 days 20 tablet 08/25/2024 09/04/2024 Active Start: 08-09-2024 End: 08-16-2024 take 1 tablet by mouth once in the morning, then take 1 tablet by mouth once at bedtime sulfamethoxazole-trimethoprim (Bactrim D S) 800-160 MG per tablet Indications: Cellulitis of abdominal wall , Abscess Take 1 tablet by mouth in the morning and 1 tablet before bedtime. Do all this for 7 days. 14 tablet 08/09/2024 08/16/2024 Active zonisamide 50 mg oral capsule (3 [...] (2 sources) Palpitations; Translations: [Palpitations] 04-05-2024 Episodic Mycoses (2 sources) Tinea pedis; Translations: [Tinea pedis] 10-08-2024 Episodic Other aftercare (2 sources) Patient encounter status; Translations: [Other intermediate manager (current) drug therapy] 04-05-2024 Episodic Other connective tissue disease (1 source) Other muscle spasm; Translations: [OTHER MUSCLE SPASM] Onset: 07-26-2022 Episodic Other connective tissue disease (2 sources) Pain in both feet; Translations: [Pain in right foot] 09-15-2024 Episodic Other ear and sense organ disorders (20 sources) Conductive hearing loss, unilateral, left ear, [...] obesity due to excess calories] 04-05-2024 Chronic Other skin disorders (4 sources) Ingrowing toenail; Translations: [Ingrowing nail] 09-15-2024 Episodic Otitis media and related conditions (2 sources) Chronic left mastoiditis; Translations: [Chronic mastoiditis, left ear] 06-15-2024 Chronic Skin and subcutaneous tissue infections (8 sources) Cellulitis of abdominal wall ; Translations: [Cellulitis of abdominal wall] 08-09-2024 Episodic Spondylosis; intervertebral disc disorders; other back [...] Date Documented Da te Episodic/Chronic Esophageal disorders (20 sources) Laryngopharyngeal reflux; Translations: [Gastro-esophageal reflux disease without esophagitis] Onset: 3 Resolved: 3 02-24-2023 Chronic Other diseases of veins and lymphatics (20 sources) Lymphedema; Translations: [Lymphedema, not elsewhere classified] Onset: 9 Resolved: 3 02-24-2023 Chronic Other gastrointestinal disorders (20 sources) Chronic constipation; Translations: [Other constipation] Onset: 0 Resolved: 3 02-24-2023 Episodic Other liver diseases (20 sources) Elevated liver enzymes level; Translations: [Abnormal levels of other serum enzymes] Onset: 3 Resolved: 4 11-01-2022 Episodic Other nutritional; endocrine; and metabolic disorders (20 sources) Body mass index 30+ - obesity; Translations: [Obesity, unspecified] Onset: 3 Resolved: 3 02-24-2023 Chronic Residual codes; unclassified (20 sources) FH: premature coronary heart disease; Translations: [Family history of ischemic heart disease and other diseases of the circulatory system] Onset: 3 11-07-2022 Episodic Spondylosis; intervertebral disc disorders; other back problems (20 sources) Low back pain; Translations: [Muscle spasm of back] Onset: 2 Resolved: 3 Episodic Results Test Name Value Interpretation Reference Range Facility XR LUMBAR SPINE 6V W BENDING on 09-23-2024 [place] [address] XRay Report Signed Patient: CAS CALHOUN MR#: [id number] : 1980 Acct:[id number] Age/Sex: 44 / M ADM Date: 09/23/24 Loc: RAD Attending Dr: Jeanette Castro NP Ordering Physician: Jeanette Castro NP Date of Service: 09/23/24 Procedure(s): XR lumbar spine 6V w bending Accession Number(s): [id number] cc: Jeanette Castro NP; ADELITA EPPERSON [place] [address] Patient Name: CAS CALHOUN MRN: [facility]:[id number] date: 1980 Sex: M Assigned Patient Location: [facility] Current Patient Location: [facility] Accession/Order Number: [id number] Exam Date: 09/23/2024 15:44 Report Date: 09/23/2024 15:46 At the request of: JEANETTE CASTRO NP Procedure: XR lumbar spine 6V w bending 7 views Lumbar Spinewith flexion extension HISTORY: Low back pain for one month fell downstairs COMPARISON: MRI lumbar spine 06/13/2023 POSTSURGICAL CHANGES: None BONY ALIGNMENT: Straightening. HYPERMOBILITY:No hypermobility LISTHESIS:None FRACTURE: None DEGENERATIVE CHANGES: Similar mild lower lumbar disc space narrowing. Facet degeneration. SOFT TISSUES: Unremarkable BONY MINERALIZATION:[place] te XR/XR lumbar spine 6V w bending IMPRESSION: No hypermobility. Similar lower lumbar degeneration. Impression dictated by: Pelon Salazar M.D. 09/23/2024 3:46 PM Dictation Location: [place] [address] Electronically authenticated by: [id number] Y Date: 09/23/2024 15:46 Dictated By: Pelon Salazar D.O. Signed By: 09/23/24 1549 DD/ 1546 TD/TT: Clinical Engineer: [facility] Radiology, Radiologist, MD - 09/23/2024 [place] [address] XRay Report Signed Patient: CAS CALHOUN MR#: [id number] : 1980 Acct:[id number] Age/Sex: 44 / M ADM Date: 09/23/24 Loc: RAD Attending Dr: Jeanette Castro NP Ordering Physician: Jeanette Castro NP Date of Service: 09/23/24 Procedure(s): XR lumbar spine 6V w bending Accession Number(s): [id number] cc: Jeanette Castro NP; ADELITA EPPERSON [address] [address] Patient Name: CAS CALHOUN MRN: [id number] date: 1980 Sex: M Assigned Patient Location: RAD Current Patient Location: [facility] Accession/Order Number: [id number] Exam Date: 09/23/2024 15:44 Report Date: 09/23/2024 15:46 At the request of: JEANETTE CASTRO NP Procedure: XR lumbar spine 6V w bending 7 views Lumbar Spinewith flexion extension HISTORY: Low back pain for one month fell downstairs COMPARISON: MRI lumbar spine 06/13/2023 POSTSURGICAL CHANGES: None BONY ALIGNMENT: Straightening. HYPERMOBILITY:No hypermobility LISTHESIS:None FRACTURE: None DEGENERATIVE CHANGES: Similar mild lower lumbar disc space narrowing. Facet degeneration. SOFT TISSUES: Unremarkable BONY MINERALIZATION:[place] te XR/XR lumbar spine 6V w bending IMPRESSION: No hypermobility. Similar lower lumbar degeneration. Impression dictated by: Pelon Salazar M.D. 09/23/2024 3:46 PM Dictation Location: [place] [address] Electronically authenticated by: [id number] Y Date: 09/23/2024 15:46 Dictated By: Pelon Salazar D.O. Signed By: 09/23/24 1549 DD/ 1546 TD/TT: Clinical Engineer: [facility] Radiology Study observation (narrative) [facility] XR LUMBAR SPINE 6V W BENDING Ordered By: Radiologist Radiology on 09-23-2024 [facility] Work Phone: Alanine aminotransferase [En zymatic activity/volume] in Serum or PlasmaOrdered By: Manjinder Lynn on 09-03-2023 ALT [Catalytic activity/Vol] 29 U/L 7-52 [facility] Albumin [Mass/volume] in Ser um or Plasma by Bromocresol green (BCG) dye binding methoOrdered By: Manjinder Lynn on 09-03-2023 Albumin BCG dye [Mass/Vol] 4.6 g/dL 3.5-5.7 [facility] Alkaline phosphatase [Enzyma tic activity/volume] in Serum or PlasmaOrdered By: Manjinder Lynn on 09-03-2023 ALP [Catalytic activity/Vol] 75 U/L 34-104 [facility] Aspartate aminotransferase [ Enzymatic activity/volume] in Serum or PlasmaOrdered By: Manjinder Lynn on 09-03-2023 AST [Catalytic activity/Vol] 20 U/L 13-39 [facility] Basophils Auto (Bld) [#/Vol] Ordered By: Manjinder Lynn on 09-03-2023 Basophils (Bld) [#/Vol] 0.1 10*3/uL 0.0-0.2 [facility] Basophils/100 WBC Auto (Bld) Ordered By: Manjinder Lynn on 09-03-2023 Basophils/100 WBC (Bld) 1.1 % . [facility] Bilirubin.total [Mass/volume ] in Serum or PlasmaOrdered By: Manjinder Lynn on 09-03-2023 Bilirubin [Mass/Vol] 1.3 mg/dL 0.3-1.0 [facility] Comment on above: Samples from patient s who have taken Naproxen have shown spurious elevation in Total Bilirubin levels. A metabolite of Naproxen, O-desmethylnaproxen, has been shown to interfere with the Tracy-María method for measuring Total Bilirubin. Calcium [Mass/volume] in Ser um or PlasmaOrdered By: Manjinder Lynn on 09-03-2023 Calcium [Mass/Vol] 9.5 mg/dL 8.6-10.3 [facility] Carbon dioxide, total [Moles /volume] in Serum or PlasmaOrdered By: Manjinder Lynn on 09-03-2023 CO2 [Moles/Vol] 27.6 mmol/L 21.0-31.0 [facility] Chloride [Moles/volume] in S cheryl or PlasmaOrdered By: Manjinder Lynn on 09-03-2023 Chloride [Moles/Vol] 103 mmol/L 98-107 [facility] Complete Blood Count no refl exon 09-03-2023 Basophils (Bld) [#/Vol] 0.1 10*3/uL Normal 0.0-0.2 [facility] Comment on above: Result Comment: PERF ORMED BY: [place] [address] PATHOLOGIST TALENT DEVELOPMENT ANALYST JOÃO YATES M.D. Performed By: #### [facility] CBC #### [address] Basophils/100 WBC (Bld) 1.1 % Normal . [facility] Comment on above: Performed By: #### C [facility], [facility] CBC #### [address] Eosinophils (Bld) [#/Vol] 0.4 10*3/uL Normal 0.0-0.45 [facility] Comment on above: Performed By: #### [facility] #### [address] Eosinophils/100 WBC (Bld) 4.9 % Normal . [facility] Comment on above: Performed By: #### [facility] #### [address] Erythrocyte distribution width (RBC) [Ratio] 13.4 % Normal 12.0-14.8 [facility] Comment on above: Performed By: #### [facility] #### [address] Hematocrit (Bld) [Volume fraction] 43.4 % Normal 38.8-50.0 [facility] Comment on above: Performed By: #### [facility] #### [address] Hemoglobin (Bld) [Mass/Vol] 15.1 g/dL Normal 13.0-17.0 [facility] Comment on above: Performed By: #### [facility] #### [address] Lymphocytes (Bld) [#/Vol] 3.5 10*3/uL Normal 1.00-4.8 [facility] Comment on above: Performed By: #### [facility], [facility] CBC #### [place] [address] [place] Lymphocytes/100 WBC (Bld) 38.0 % Normal . [facility] Comment on above: Performed By: #### [facility] CBC #### [address] MCH (RBC) [Entitic mass] 30.6 pg Normal 27.5-35.2 [facility] Comment on above: Performed By: #### [facility] #### [address] MCV (RBC) [Entitic vol] 88.2 fL Normal 83.5-101 [facility] Comment on above: Performed By: #### [facility], [facility] #### [address] Mean Corpuscular HGB Conc 34.7 g/dL Normal 32.5-35.6 [facility] Comment on above: Performed By: #### [facility], [facility] #### [address] Monocytes (Bld) [#/Vol] 0.7 10*3/uL Normal 0.0-0.8 [facility] Comment on above: Performed By: #### [facility] #### [address] Monocytes/100 WBC (Bld) 7.1 % Normal . [facility] Comment on above: Performed By: #### [facility], [facility] #### [address] Neutrophils (Bld) [#/Vol] 4.5 10*3/uL Normal 1.8-7.7 [facility] Comment on above: Performed By: #### [facility], [facility] #### [address] Neutrophils/100 WBC (Bld) 48.9 % Normal . [facility] Comment on above: Performed By: #### [facility] #### [address] NRBC% 0.2 /100{WBC} Normal 0-0.5 The [facility] Comment on above: Performed By: #### C [facility], [facility] #### [address] Platelet mean volume (Bld) [Entitic vol] 9.6 fL Normal 6.6-10.1 [facility] Comment on above: Performed By: #### [facility], [facility] #### [address] Platelets (Bld) [#/Vol] 230 10*3/uL Normal 150-450 [facility] Comment on above: Performed By: #### [facility] #### [address] RBC (Bld) [#/Vol] 4.92 10*6/uL Normal 3.90-5.60 The [facility] Comment on above: Performed By: #### [facility] #### [address] WBC (Bld) [#/Vol] 9.2 10*3/uL Normal 4.1-10.5 The [facility] Comment on above: Performed By: #### [facility], [facility] #### [address] Comprehensive Metabolic Pane serafin 09-03-2023 Albumin [Mass/Vol] 4.6 g/dL Normal 3.5-5.7 The [facility] Comment on above: Performed By: #### [facility] #### [address] Albumin/Globulin [Mass ratio] 2.1 {ratio} Normal [facility] Comment on above: Performed By: #### [facility] #### [address] ALP [Catalytic activity/Vol] 75 U/L Normal 34-104 [facility] Comment on above: Result Comment: PERF ORMED BY: [address] [place] [address] PATHOLOGIST TALENT DEVELOPMENT ANALYST JOÃO YATES M.D. Performed By: #### [facility] #### [address] ALT [Catalytic activity/Vol] 29 U/L Normal 7-52 [facility] Comment on above: Performed By: #### [facility] #### [address] Anion gap [Moles/Vol] 11.4 mmol/L Normal 6.0-15.0 [facility] Comment on above: Performed By: #### [facility] #### [address] AST [Catalytic activity/Vol] 20 U/L Normal 13-39 [facility] Comment on above: Performed By: #### [facility] #### [address] Bilirubin [Mass/Vol] 1.3 mg/dL High 0.3-1.0 [facility] Comment on above: Result Comment: Samp les from patients who have taken Naproxen have shown spurious elevation in Total Bilirubin levels. A metabolite of Naproxen, O-desmethylnaproxen, has been shown to interfere with the Jendrassik-Grof method for measuring Total Bilirubin. Performed By: #### [facility] #### [address] Calcium [Mass/Vol] 9.5 mg/dL Normal 8.6-10.3 The [facility] Comment on above: Performed By: #### [facility], [facility] CBC #### [place] [address] [place] Chloride [Moles/Vol] 103 mmol/L Normal 98-107 [facility] Comment on above: Performed By: #### [facility] CBC #### [place] [address] [place] CO2 [Moles/Vol] 27.6 mmol/L Normal 21.0-31.0 The [facility] Comment on above: Performed By: #### C [facility], [facility] #### [facility] [address] Creatinine [Mass/Vol] 1.22 mg/dL Normal 0.70-1.30 [facility] Comment on above: Performed By: #### [facility], [facility] #### [facility] [address] [place] [address] [place] GFR/1.73 sq M.predicted MDRD (S/P/Bld) [Vol rate/Area] mL/min/{1.73_m2} Normal [facility] Comment on above: Performed By: #### [facility], [facility] #### [facility] [address] Globulin (S) [Mass/Vol] 2.2 g/dL Normal [facility] Comment on above: Performed By: #### C [facility], [facility] #### [address] Glucose [Mass/Vol] 117 mg/dL High 70-100 The [facility] Comment on above: Result Comment: [facility] Glucose Reference Range is dependent on time and content of last meal. Glucose of more than 200 mg/dL in a nonstressed, ambulatory subject supports the diagnosis of Diabetes Mellitus. ADA recommended reference range Performed By: #### C [facility], [facility] #### [facility] [address] Potassium [Moles/Vol] 4.0 mmol/L Normal 3.5-5.1 [facility] Comment on above: Performed By: #### C [facility], [facility] #### [facility] [address] [place] [address] [place] Protein [Mass/Vol] 6.8 g/dL Normal 6.4-8.9 The [facility] Comment on above: Performed By: #### C [facility], [facility] #### [facility] [address] Sodium [Moles/Vol] 138 mmol/L Normal 136-145 The [facility] Comment on above: Performed By: #### C MP, [facility] #### [facility] [address] Urea nitrogen [Mass/Vol] 11 mg/dL Normal 7-25 [facility] Comment on above: Performed By: #### C MP, [facility] #### [facility] [address] [place] [id number] [place] Creatinine [Mass/volume] in Serum or PlasmaOrdered By: Manjinder Lynn on 09-03-2023 Creatinine [Mass/Vol] 1.22 mg/dL 0.70-1.30 [facility] Eosinophils Auto (Bld) [#/Vo l]Ordered By: Manjinder Lynn on 09-03-2023 Eosinophils (Bld) [#/Vol] 0.4 10*3/uL 0.0-0.45 [facility] Eosinophils/100 WBC Auto (Bl d)Ordered By: Manjinder Lynn on 09-03-2023 Eosinophils/100 WBC (Bld) 4.9 % . [facility] Erythrocyte distribution wid th Auto (RBC) [Ratio]Ordered By: Manjinder Lynn on 09-03-2023 Erythrocyte distribution width (RBC) [Ratio] 13.4 % 12.0-14.8 [facility] Globulin Calc (S) [Mass/Vol] Ordered By: Manjinder Lynn on 09-03-2023 Globulin (S) [Mass/Vol] 2.2 g/dL [facility] Glucose [Mass/volume] in Ser um or PlasmaOrdered By: Manjinder Lynn on 09-03-2023 Glucose [Mass/Vol] 117 mg/dL 70-100 [facility] Comment on above: ADA recommended refe rence rangeRandom Glucose Reference Range is dependent on time and content of last meal. Glucose of more than 200 mg/dL in a nonstressed, ambulatory subject supports the diagnosis of Diabetes Mellitus. Hematocrit Auto (Bld) [Volum e fraction]Ordered By: Manjinder Lynn on 09-03-2023 Hematocrit (Bld) [Volume fraction] 43.4 % 38.8-50.0 [facility] Hemoglobin [Mass/volume] in BloodOrdered By: Manjinder Lynn on 09-03-2023 Hemoglobin (Bld) [Mass/Vol] 15.1 g/dL 13.0-17.0 [facility] Leukocytes [#/volume] correc padma for nucleated erythrocytes in Blood by Automated counOrdered By: Manjinder Lynn on 09-03-2023 WBC corrected for nucl RBC Auto (Bld) [#/Vol] 9.2 10*3/uL 4.1-10.5 [facility] Lymphocytes Auto (Bld) [#/Vo l]Ordered By: Manjinder Lynn on 09-03-2023 Lymphocytes (Bld) [#/Vol] 3.5 10*3/uL 1.00-4.8 [facility] Lymphocytes/100 WBC Auto (Bl d)Ordered By: Manjinder Lynn on 09-03-2023 Lymphocytes/100 WBC (Bld) 38.0 % . [facility] MCH Auto (RBC) [Entitic mass ]Ordered By: Manjinder Lynn on 09-03-2023 MCH (RBC) [Entitic mass] 30.6 pg 27.5-35.2 [facility] MCHC Auto (RBC) [Mass/Vol]Or dered By: Manjinder Lynn on 09-03-2023 MCHC (RBC) [Mass/Vol] 34.7 g/dL 32.5-35.6 [facility] MCV Auto (RBC) [Entitic vol] Ordered By: Manjinder Lynn on 09-03-2023 MCV (RBC) [Entitic vol] 88.2 fL 83.5-[address] [facility] Monocytes Auto (Bld) [#/Vol] Ordered By: Manjinder Lynn on 09-03-2023 Monocytes (Bld) [#/Vol] 0.7 10*3/uL 0.0-0.8 [facility] Monocytes/100 WBC Auto (Bld) Ordered By: Manjinder Lynn on 09-03-2023 Monocytes/100 WBC (Bld) 7.1 % . [facility] Neutrophils Auto (Bld) [#/Vo l]Ordered By: Manjinder Lynn on 09-03-2023 Neutrophils (Bld) [#/Vol] 4.5 10*3/uL 1.8-7.7 [facility] Neutrophils/100 WBC Auto (Bl d)Ordered By: Manjinder Lynn on 09-03-2023 Neutrophils/100 WBC (Bld) 48.9 % . [facility] No Panel InformationOrdered By: Manjinder Lynn on 09-03-2023 Estimated GFR (CKD-EPI) > 60.0 mL/Min [facility] Creatinine Clearance (Chem N/A [facility] Nucleated erythrocytes [Pres ence] in Blood by Automated countOrdered By: Manjinder Lynn on 09-03-2023 Nucleated RBC Auto Ql (Bld) 0.2 /100{WBC} 0-0.5 [facility] Platelet mean volume Auto (B ld) [Entitic vol]Ordered By: Manjinder Lynn on 09-03-2023 Platelet mean volume (Bld) [Entitic vol] 9.6 fL 6.6-10.1 [facility] Platelets Auto (Bld) [#/Vol] Ordered By: Manjinder Lynn on 09-03-2023 Platelets (Bld) [#/Vol] 230 10*3/uL 150-450 [facility] Potassium [Moles/volume] in Serum or PlasmaOrdered By: Manjinder Lynn on 09-03-2023 Potassium [Moles/Vol] 4.0 mmol/L 3.5-5.1 [facility] Protein [Mass/volume] in Ser um or PlasmaOrdered By: Manjinder Lynn on 09-03-2023 Protein [Mass/Vol] 6.8 g/dL 6.4-8.9 [facility] RBC Auto (Bld) [#/Vol]Ordere d By: Manjinder Lynn on 09-03-2023 RBC (Bld) [#/Vol] 4.92 10*6/uL 3.90-5.60 [facility] Serum or plasma albumin/glob ulin mass ratioOrdered By: Manjinder Lynn on 09-03-2023 Albumin/Globulin [Mass ratio] 2.1 {ratio} [facility] Serum or plasma anion gap de terminationOrdered By: Manjinder Lynn on 09-03-2023 Anion gap [Moles/Vol] 11.4 mmol/L 6.0-15.0 [facility] Sodium [Moles/volume] in Ser um or PlasmaOrdered By: Manjinder Lynn on 09-03-2023 Sodium [Moles/Vol] 138 mmol/L 136-145 [facility] Urea nitrogen [Mass/volume] in Serum or PlasmaOrdered By: Manjinder Lynn on 09-03-2023 Urea nitrogen [Mass/Vol] 11 mg/dL 7-25 [facility] WBC Auto (Bld) [#/Vol]Ordere d By: Manjinder Lynn on 09-03-2023 WBC (Bld) [#/Vol] 9.2 10*3/uL 4.1-10.5 [facility] XR chest 1Von 09-03-2023 XR chest 1V [facility] [place] [address] XRay Report Signed Patient: Cas Calhoun MR#: [id number] : 1980 Acct:[id number] Age/Sex: 43 / M ADM Date: 09/03/23 Loc: [place] Room: Type: [facility] Attending Dr: Manjinder Lynn Jr, DO [...] Pelon Salazar M.D.09/03/2023 1:17 PM Dictation Location: [place] [address] Transcribed By: [facility] 09/03/231316 Dictated By: Pelon Salazar DO 09/03/231316 Signed By: 09/03/23 131 Normal [facility] Complete Blood Counton 08-07 Erythrocyte distribution width (RBC) [Ratio] 13.0 % Normal 11.0-15.0 [place] [employer] [facility] Comment on above: Performed By: #### L IPD, CBC, CMP #### [facility] [address] [place], [place] [id number] Hematocrit (Bld) [Volume fraction] 46.2 % Normal 38.5-50.0 [facility] Specialist Comment on above: Performed By: #### L IPD, CBC, CMP #### [facility] [address] [place], [place] [id number] Hemoglobin (Bld) [Mass/Vol] 15.6 g/dL Normal 13.0-17.1 [facility] Specialist Comment on above: Performed By: #### L IPD, CBC, CMP #### [facility] [address] [place], [place] [id number] MCH (RBC) [Entitic mass] 29.8 pg Normal 27.0-33.0 [facility] Specialist Comment on above: Performed By: #### L IPD, CBC, CMP #### [facility] [address] [place], [place] [id number] MCHC (RBC) [Mass/Vol] 33.8 g/dL Normal 32.0-36.0 [facility] Comment on above: Performed By: #### L IPD, CBC, CMP #### [facility] [address] [place], [place] [id number] MCV (RBC) [Entitic vol] 88 fL Normal 80-100 N [facility] Specialist Comment on above: Performed By: #### L IPD, CBC, CMP #### [facility] [address] [place], [place] [id number] Platelet mean volume (Bld) [Entitic vol] 11.20 fL Normal 7.50-12.50 [facility] Specialist Comment on above: Performed By: #### L IPD, CBC, CMP #### [facility] [address] [place], [place] [id number] Platelets (Bld) [#/Vol] 231 10*3/uL Normal 140-400 [facility] Specialist Comment on above: Performed By: #### L IPD, CBC, CMP #### [facility] [address] [place], [place] [id number] RBC (Bld) [#/Vol] 5.24 10*6/uL Normal 4.20-5.80 [facility] [employer] Instructor Comment on above: Performed By: #### L IPD, CBC, CMP #### [facility] [address] [place], [place] [id number] RDW-SD 42.1 fL Normal 37.0-50.0 [facility] [employer] Instructor Comment on above: Performed By: #### L IPD, CBC, CMP #### [facility] [address] [place], [place] [id number] WBC (Bld) [#/Vol] 9.2 10*3/uL Normal 3.8-11.0 [facility] [employer] Instructor Comment on above: Performed By: #### L IPD, CBC, CMP #### [facility] [address] [place], [place] [id number] Comprehensive Metabolic Pane serafin 08-07-2021 Albumin [Mass/Vol] 4.7 g/dL Normal 3.6-5.1 [facility] [employer] Instructor Comment on above: Performed By: #### L IPD, CBC, CMP #### [facility] [address] [place], [place] [id number] Albumin/Globulin [Mass ratio] 2.4 {ratio} Normal 1.0-2.5 [facility] [employer] Instructor Comment on above: Performed By: #### L IPD, CBC, CMP #### [facility] [address] [place], [place] [id number] ALP [Catalytic activity/Vol] 76 U/L Normal 40-129 [facility] [employer] Instructor Comment on above: Performed By: #### L IPD, CBC, CMP #### [facility] [address] [place], [place] [id number] ALT [Catalytic activity/Vol] 52 U/L High 9-46 [facility] Specialist Comment on above: Result Comment: 03/28 Female reference range changed. Performed By: #### L IPD, CBC, CMP #### [facility] [address] [place], [place] [id number] Anion gap [Moles/Vol] 18 mmol/L Normal 12-20 [facility] Glass [employer]ing Instructor Comment on above: Result Comment: Effe ctive 05/03/2019 reference range changed. Performed By: #### L IPD, CBC, CMP #### [facility] [address] [place], [place] [id number] AST [Catalytic activity/Vol] 36 U/L Normal 10-40 [facility] Comment on above: Performed By: #### L IPD, CBC, CMP #### [facility] [address] [place], [place] [id number] Bilirubin [Mass/Vol] 1.27 mg/dL High 0.30-1.20 [facility] Comment on above: Performed By: #### L IPD, CBC, CMP #### [facility] [address] [place], [place] [id number] BUN/CREA 10 Ratio Normal 6-22 [facility] Comment on above: Performed By: #### L IPD, CBC, CMP #### [facility] [address] [place], [place] [id number] Calcium [Mass/Vol] 9.6 mg/dL Normal 8.6-10.2 [facility] Comment on above: Performed By: #### L IPD, CBC, CMP #### [facility] [address] [place], [place] [id number] Chloride [Moles/Vol] 104 mmol/L Normal 98-107 [facility] Comment on above: Performed By: #### L IPD, CBC, CMP #### [facility] [address] [place], [place] [id number] CO2 [Moles/Vol] 22 mmol/L Normal 20-31 [facility] Comment on above: Performed By: #### L IPD, CBC, CMP #### [facility] [address] [place], [place] [id number] Creatinine [Mass/Vol] 1.0 mg/dL Normal 0.7-1.4 [facility] Comment on above: Performed By: #### L IPD, CBC, CMP #### [facility] [address] [place], [place] [id number] eGFRAA 96 mL/min/1.73m2 Normal >60 [facility] Comment on above: Performed By: #### L IPD, CBC, CMP #### [facility] [address] [place], [place] [id number] eGFRNAA 80 mL/min/1.73m2 Normal >60 [facility] [employer] Instructor Comment on above: Performed By: #### L IPD, CBC, CMP #### [facility] [address] [place], [place] [id number] Globulin (S) [Mass/Vol] 2.0 g/dL Normal 1.9-3.7 [facility] Glass [employer]ing Instructor Comment on above: Performed By: #### L IPD, CBC, CMP #### [facility] [address] [place], [place] [id number] Glucose [Mass/Vol] 76 mg/dL Normal 65-99 [facility] Glass [employer] Instructor Comment on above: Result Comment: For FASTING Glucose --- ADA reference ranges: Normal 65-99 mg/dl Prediabetes 100-125 Diabetes >/= 126 Performed By: #### L IPD, CBC, CMP #### [facility] [address] [place], [place] [id number] Potassium [Moles/Vol] 4.7 mmol/L Normal 3.5-5.5 [facility] Specialist Comment on above: Result Comment: Spec imen is hemolyzed. Results may be affected. Performed By: #### L IPD, CBC, CMP #### [facility] [address] [place], [place] [id number] Protein [Mass/Vol] 6.7 g/dL Normal 6.1-8.1 [facility] [employer] Instructor Comment on above: Performed By: #### L IPD, CBC, CMP #### [facility] [address] [place], [place] [id number] Sodium [Moles/Vol] 139 mmol/L Normal 135-146 [facility] Comment on above: Performed By: #### L IPD, CBC, CMP #### [facility] [address] [place], [place] [id number] Urea nitrogen [Mass/Vol] 11 mg/dL Normal 7-25 [facility] [employer] Instructor Comment on above: Performed By: #### L IPD, CBC, CMP #### [facility] [address] [place], [place] [id number] Lipid Panelon 08-07-2021 Cholesterol [Mass/Vol] 154 mg/dL Normal 125-200 No rthern [facility] Comment on above: Result Comment: Low risk < 200mg/dL Borderline risk 201-239 mg/dl High risk > or equal to 240 Performed By: #### L IPD, CBC, CMP #### [facility] [address] [place], [place] [id number] Cholesterol in HDL [Mass/Vol] 40 mg/dL Low >40 [facility] Specialist Comment on above: Result Comment: High Cardiovascular Risk HDL <40 mg/dL Low Cardiovascular Risk HDL > or equal to 60 mg/dl Performed By: #### L IPD, CBC, CMP #### [facility] [address] [place], [place] [id number] Cholesterol in LDL [Mass/Vol] 88 mg/dL Normal [facility] Comment on above: Result Comment: LDL ATP III CLASSIFICATION LDL less than 100 mg/dl Optimal LDL 100-129 mg/dl Near or above optimal LDL 130-159 Borderline high LDL 160-189 High LDL greater than 189 mg/dl Very High Performed By: #### L IPD, CBC, CMP #### [facility] [address] [place], [place] [id number] Cholesterol in VLDL [Mass/Vol] 26 mg/dL Normal [facility] Comment on above: Performed By: #### L IPD, CBC, CMP #### [facility] [address] [place], [place] [id number] Cholesterol.total/Choles terol in HDL [Mass ratio] 4 {ratio} Normal [facility] Comment on above: Performed By: #### L IPD, CBC, CMP #### [facility] [address] [place], [place] [id number] Triglyceride [Mass/Vol] 129 mg/dL Normal 30-[address] [facility] Comment on above: Result Comment: TRIG ATPIII CLASSIFICATIONS TRIG less than 150 mg/dl Normal TRIG 150-199 mg/dl Borderline High TRIG 200-500 mg/dl High TRIG greather than 500 mg/dl Very High Performed By: #### L IPD, CBC, CMP #### [facility] [address] [place], [place] [id number] NR MR L-SPINE WO/W CONTRASTo n 01-13-2019 NR MR L-SPINE WO/W CONTRAST Patient Name: CAS CALHOUN STUDY: MR L-SPINE WO/W CONTRAST; 01/13/2019 10:05 am INDICATION: Radiculopathy, lumbar region. History of laminectomy. Right leg pain and numbness. COMPARISON: None. ACCESSION NUMBER(S): [id number] ORDERING CLINICIAN: ADELITA HENRY TECHNIQUE: Multisequential MR [...] Electronically signed by: BJ MUNGUIA MD Normal [facility] XR LUMBAR SPINE (MIN 4 VIEWS )on 12-17-2018 XR LUMBAR SPINE (MIN 4 VIEWS) Radiology exam is complete. No Radiologist dictation. Please follow up with ordering provider. Final result Normal [facility] Radiology exam is complete. No Radiologist dictation. Please follow up with ordering provider. [facility] [place], [place] Established Visit (Otolaryng ology)on 03-02-2018 Established Visit (Otolaryngology) Chief ComplaintNew patient suspected cholesteatoma History of Present IllnessHere today for mastoid bowl cleaning and follow up. Denies any interval otologic complaints since last being seen. Recall: 37 year old male referred by Dr. Head. [place] was a [place] in [place] had a chronically draining ear and underwent [...] complex ear problems.Dr. Chicas's office number is [phone]. While you may see him at a satellite office, she has a team committed to help meet your healthcare needs at [facility]'s main campus. This number is the most direct way to communicate with the office.Audra is Dr. Padilla guidance secretary and she answers the office phone [...] may include dieticians, social workers, speech therapists, cuff runner, neurologist, and physical therapist. Dr. Chicas will provide these referrals as needed. Please let him know if you would like to request a specific referral.For your convenience, Dr. Chicas sees patients at several [facility] locations including [facility], [facility], and [facility]. While we try to make [...] Mar 02 2018 2:05PM EST (Author) [facility] Initial Visit (Otol[facility]olog y)on 09-29-2017 Initial Visit (Otolaryngology) Chief ComplaintNew patient suspected cholesteatoma History of Present [place]26 year old male referred by Dr. Head. When he was a child in [place] had a chronically draining ear and underwent [...] AM Vitals Vital Signs Recorded: 29Sep2017 11:23AMHeart [id number] evzej23Erwctu6 ft 2 qwExxpla391 lb BMI Yrvskfntjy86.65BSA Calculated2.59 Physical ExamCONSTITUTIONAL: No acute distressVOICE: No [...] complex ear problems.Dr. Chicas's office number is [phone]. While you may see him at a satellite office, she has a team committed to help meet your healthcare needs at [facility]'s main campus. This number is the most direct way to communicate with the office.Audra is Dr. Padilla guidance secretary and she answers the office phone [...] may include dieticians, social workers, speech therapists, cuff runner, neurologist, and physical therapist. Dr. Chicas will provide these referrals as needed. Please let him know if you would like to request a specific referral.For your convenience, Dr. Chicas sees patients at several [facility] locations including [facility], [facility], and [facility]. While we try to make [...] Vital Sign Value Performing Clinician Raheem leigh 08-25-2024 09:36-0400 Diastolic blood pressure 70 mm[Hg] Erin Jamil SOLAR SALES REPRESENTATIVE Work Phone: [facility] 08-25-2024 09:36-0400 Heart rate 78 /min Erin Jamil SOLAR SALES REPRESENTATIVE Work Phone: [facility] 08-25-2024 09:36-0400 SaO2% (BldA) [Mass fraction] 98 % Erin Jamil SOLAR SALES REPRESENTATIVE Work Phone: [facility] 08-25-2024 09:36-0400 Systolic blood pressure 120 mm[Hg] Erin Jamil SOLAR SALES REPRESENTATIVE Work Phone: [facility] 08-09-2024 13:01-0400 Body height 188 cm Adelita Epperson MD Work Phone: [facility] 08-09-2024 13:01-0400 Body mass index (BMI) [Ratio] 36.85 kg/m2 Adelita Epperson MD Work Phone: [facility] 08-09-2024 13:01-0400 Body weight 130.18 kg Adelita Epperson MD Work Phone: [facility] 08-09-2024 13:01-0400 Diastolic blood pressure 80 mm[Hg] Adelita Epperson MD Work Phone: [facility] 08-09-2024 13:01-0400 Heart rate 81 /min Adelita Epperson MD Work Phone: [facility] 08-09-2024 13:01-0400 SaO2% (BldA) [Mass fraction] 95 % Adelita Epperson MD Work Phone: [facility] 08-09-2024 13:01-0400 Systolic blood pressure 136 mm[Hg] Adelita Epperson MD Work Phone: [facility] 06-15-2024 15:36-0500 Body height 188 cm Al Marin DO Work Phone: [facility] 06-15-2024 15:36-0500 Body mass index (BMI) [Ratio] 36.59 kg/m2 Al Marin DO Work Phone: [facility] 06-15-2024 15:36-0500 Body weight 129.28 kg Al Marin DO Work Phone: [facility] 04-05-2024 07:58-0500 Body height 188 cm Adelita Epperson MD Work Phone: [facility] 04-05-2024 07:58-0500 Body mass index (BMI) [Ratio] 36.59 kg/m2 Adelita Epperson MD Work Phone: [facility] 04-05-2024 07:58-0500 Body weight 129.28 kg Adelita Epperson MD Work Phone: [facility] 04-05-2024 07:58-0500 Diastolic blood pressure 60 mm[Hg] Adelita Epperson MD Work Phone: [facility] 04-05-2024 07:58-0500 Heart rate 90 /min Adelita Epperson MD Work Phone: [facility] 04-05-2024 07:58-0500 SaO2% (BldA) [Mass fraction] 98 % Adelita Epperson MD Work Phone: [facility] 04-05-2024 07:58-0500 Systolic blood pressure 126 mm[Hg] Adelita Epperson MD Work Phone: [facility] Encounters Encounter Date Encounter Type Care Provider Facility Start: 10-08-2024 End: 10-08-2024 Bamboo flowsheet Wilfrido Moreno DPM Work Phone: [facility] Start: 10-08-2024 End: 10-08-2024 Bamboo flowsheet Wilfrido Moreno DPM Work Phone: [facility] Start: 10-08-2024 End: 10-08-2024 Office outpatient visit 25 minutes Wilfrido Moreno DPM Work Phone: [facility] Comment on above: Ingrown toenail (Nicolasa cal Dx); Tinea pedis of both feet Start: 10-08-2024 End: 10-08-2024 ambulatory WILFRIDO MORENO Not Available Start: 09-23-2024 End: 09-23-2024 Clinisync Result Encounter Generic External Data Provider [facility] External Department Unsolicited Start: 09-23-2024 End: 09-23-2024 Clinisync Result Encounter Generic External Data Provider [facility] External Department Unsolicited Start: 09-15-2024 End: 09-15-2024 Bamboo flowsheet Wilfrido Moreno DPM Work Phone: [facility] Start: 09-15-2024 End: 09-15-2024 Bamboo flowsheet Wilfrido Moreno DPM Work Phone: [facility] Start: 09-15-2024 End: 09-15-2024 Office outpatient visit 25 minutes Wilfrido Moreno DPM Work Phone: [facility] Comment on above: Ingrown toenail (Nicolasa cal Dx); Bilateral foot pain Start: 09-15-2024 End: 09-15-2024 ambulatory WILFRIDO MORENO Not Available Start: 08-25-2024 End: 08-25-2024 Office outpatient visit 15 minutes Erin Jamil SOLAR SALES REPRESENTATIVE Work Phone: [facility] Comment on above: Groin abscess (Prima ry Dx); Cellulitis of groin Start: 08-25-2024 End: 08-25-2024 ambulatory ADELITA EPPERSON Not Available Start: 08-09-2024 End: 08-09-2024 Office outpatient visit 15 minutes Adelita Epperson MD Work Phone: [facility] Comment on above: Cellulitis of abdomi nal wall (Primary Dx); Abscess Start: 08-09-2024 End: 08-09-2024 ambulatory ADELITA EPPERSON Not Available Start: 07-05-2024 End: 07-05-2024 ambulatory Laura Luevano MD Facility:[facility] Start: 06-15-2024 End: 06-15-2024 Office outpatient visit 15 minutes Al Marin DO Work Phone: [facility] Comment on above: History of cholestea shayla (Primary Dx); Chronic mastoiditis of left side; Hearing loss of left ear, unspecified hearing loss type Start: 06-15-2024 End: 06-15-2024 ambulatory AL MARIN Not Available Start: 05-30-2024 End: 05-31-2024 Refill Adelita Epperson MD Work Phone: [facility] Comment on above: Obesity (BMI 30-39.9 ) Start: 04-23-2024 End: 04-23-2024 ambulatory ERINTHAO IRIZARRYYEN Not Available Start: 04-07-2024 End: 04-08-2024 Refill [...] 03-15-2024 End: 03-15-2024 ambulatory Laura Luevano MD Facility:[facility] Start: 03-02-2024 End: 03-02-2024 Orders Only Adelita Epperson MD Work Phone: [facility] Comment on above: Lumbar paraspinal mu scle spasm (Primary Dx); Lumbar radiculopathy Start: 02-10-2024 End: 02-11-2024 Refill Erin Jamil SOLAR SALES REPRESENTATIVE Work Phone: [facility] Comment on above: Obesity (BMI 30-39.9 ) Start: 01-13-2024 End: 01-13-2024 Refill Adelita Epperson MD Work Phone: [facility] Comment on above: Obesity (BMI 30-39.9 ) Start: 01-05-2024 End: 01-05-2024 ambulatory Laura Luevano MD Facility:[facility] Start: 12-09-2023 End: 12-09-2023 ambulatory AL MARIN Not Available Start: 11-25-2023 End: 11-25-2023 ambulatory AL MARIN Not Available Start: 11-12-2023 End: 11-12-2023 ambulatory HANS LORD Not Available Start: 09-03-2023 End: 09-03-2023 ambulatory Manjinder Lynn Jr Facility:[facility] Start: 09-03-2023 End: 09-03-2023 ambulatory MD Adelita Epperson Work Phone: [facility] Work Phone: Start: 09-03-2023 End: 09-03-2023 Departed Referred MD Adelita Epperson Work Phone: [facility] [address] Work Phone: Start: 06-03-2023 Telephone encounter Laurie cameron SOLAR SALES REPRESENTATIVE Work Phone: [facility] Start: 09-05-[address] ADELITA EPPERSON Facility :[facility] Start: 08-06-2022 End: 08-06-2022 ambulatory NARENDRANATH LAKSHMIPATHY . Facility:[facility] Start: 07-23-2022 End: 07-24-2022 ambulatory NARENDRANATH LAKSHMIPATHY . Facility:[facility] Start: 03-28-2022 End: 03-29-2022 ambulatory SEAN WELLS . Facility:[facility] Start: 01-03-2022 End: 01-04-2022 ambulatory SEAN WELLS . Facility: Start: 10-04-2021 End: 10-05-2021 ambulatory SEAN WELLS . Facility: Start: 04-10-2020 End: 04-10-2020 Patient encounter procedure Adelita Epperson [facility] [place] Start: 12-17-2018 End: 12-20-2018 Patient encounter procedure [facility] Start: 12-17-2018 End: 12-19-2018 Subsequent hospital visit by physician [facility] Comment on above: Low back pain, unspe cified back pain laterality, unspecified chronicity, with sciatica presence unspecified Start: 03-02-2018 Patient encounter procedure Dale Chicas Facility:[id number] Start: 09-29-2017 Patient encounter procedure Dale Chicas Facility:[id number] Procedures Date Procedure Procedure Detail Performing Clinician Start: 09-23-2024 XR LUMBAR SPINE 6V W BENDING Generic External Data Provider Start: 12-17-2018 Radex spine lumbosac ral minimum 4 views ADELITA EPPERSON Start: 12-17-2018 Radex spine lumbosac ral minimum 4 views Adelita Henry Work Phone: Start: 09-29-2017 Follow-up visit Plan of Treatment Date Care Activity Detail Author Start: 06-21-2025 End: 06-21-2025 Patient encounter procedure [facility] Start: 12-27-2024 Influenza vaccination Influenz a Vaccine (Season Ended) [facility] Start: 10-11-2024 End: 10-11-2024 [facility] Start: 10-08-2024 End: 10-08-2024 Patient encounter procedure 10/08/2024 9:15 AM EDT Office Visit [facility] [address] [place] [address] Wilfrido Moreno DPM [address] [place] [address] Arrived [facility] Comment on above: Arrived Start: 09-29-2024 End: 09-29-2024 Patient encounter procedure 09/29/2024 8:00 AM EDT Office Visit [facility] [address] [place] [address] Wilfrido Moreno DPM [address] [place] [address] [facility] Start: 09-15-2024 End: 09-15-2024 Patient encounter procedure 09/15/2024 8:00 AM EDT Office Visit [facility] [address] [place] [address] Wilfrido Moreno DPM [address] [place] [address] Arrived [facility] Comment on above: Arrived Start: 07-12-2024 End: 07-12-2024 Patient encounter procedure 07/12/2024 8:45 AM EDT Office Visit [facility] [address] [place] [address] Adelita Epperson MD [address] [place] [address] [facility] Start: 06-15-2024 End: 06-15-2024 Patient encounter procedure 06/15/2024 3:45 PM EST Office Visit [facility] [address] [place] [phone] Al Marin, DO [address] [place] [address] [facility] Start: 05-31-2024 Influenza vaccination Influenza Vacc ine (#1) [facility] Comment on above: Postponed from 12/27 (Patient Refused) Start: 04-05-2024 End: 04-05-2024 Patient encounter procedure 04/05/2024 8:15 AM EST Office Visit [facility] [address] [place] [phone] Adelita Epperson MD [address] [place] [address] [facility] Start: 03-11-2024 End: 03-11-2024 Patient encounter procedure 03/11/2024 3:15 PM EST Office Visit [facility] [address] [place] [phone] Al Marin, DO [address] [place] [address] [facility] Start: 03-02-2024 End: 03-02-2024 ambulatory 03/02/2024 10:30 AM EST Evaluation [facility] [address] [facility] [place] [phone] Antonio Solomon, PT [address] [facility] [place] [phone] [facility] Start: 12-28-2023 Influenza vaccination Influenza Vacc ine (#1) [facility] Start: 08-26-2023 End: 08-26-2023 Patient encounter procedure 08/26/2023 3:45 PM EDT Office Visit [facility] [place] [address] [place] [phone] Al Marin, DO [address] [place] [address] [facility] [place] Start: 07-14-2023 End: 07-14-2023 Patient encounter procedure 07/14/2023 8:45 AM EDT Office Visit [facility] [address] [place] [phone] Adelita Epperson MD [address] [place] [address] [facility] Start: 06-23-2023 End: 06-23-2023 Patient encounter procedure 06/23/2023 8:00 AM EST Office Visit [facility] [address] [place] [address] Laurie Haley, SOLAR SALES REPRESENTATIVE [address] [place] [address] [facility] Start: 06-16-2023 End: 06-16-2023 ambulatory 06/16/2023 4:15 PM EST Treatment [facility] [address] [place] [phone] Antonio Solomon, PT [address] [facility] [place] [id number] [facility] Start: 06-09-2023 End: 06-09-2023 ambulatory 06/09/2023 4:30 PM EST Treatment [facility] [address] [place] [id number] Antonio Solomon, PT [address] [place] [id number] [facility] Start: 06-04-2023 End: 06-04-2024 MR Lumbar spine WO contrast MR lumbar spine wo contrast Imaging Routine DDD (degenerative disc disease), lumbar Lumbar herniated disc Expected: 06/04/2023 (Approximate), Expires: 06/04/2024 [facility] Work Phone: Comment on above: Expected: 06/04/2023 (Approximate), Expires: 06/04/2024 Start: 12-27-2022 Influenza vaccination Influenza Vacc ine (#1) [facility] Start: 12-27-2018 Influenza vaccination Flu vaccine (# 1) [place], [place] Start: 1999 DTaP/Tdap/Td vaccine (1 - Tdap) DTaP/Tdap/Td vaccine (1 - Tdap) [place], [place] Start: 1995 HIV screen HIV screen [place], [place] Start: 1993 Varicella Vaccine (1 of 2 - 13+ 2-dose series) Varicella Vaccine (1 of 2 - 13+ 2-dose series) [place], [place] Start: 1986 Pneumococcal 0-64 ye ars Vaccine (1 of 1 - PPSV23) Pneumococcal 0-64 years Vaccine (1 of 1 - PPSV23) [place], [place] Basic metabolic 1998 panel - Serum or Plasma Basic metabolic panel Lab Routine Annual physical exam Medication management Ordered: 04/05/2024 [facility] Work Phone: Comment on above: Ordered: 04/05/2024 CBC W Auto Different ial panel - Blood CBC and differential Lab Routine Annual physical exam Ordered: 04/05/2024 [facility] Comment on above: Ordered: 04/05/2024 Hepatic function 200 0 panel - Serum or Plasma Hepatic function panel Lab Routine Medication management Ordered: 04/05/2024 [facility] Comment on above: Ordered: 04/05/2024 Lipid 1996 panel - Serum or Plasma Lipid panel Lab Routine Severe obesity (BMI 35.0-39.9) with comorbidity (CMS/HCC) Annual physical exam Ordered: 04/05/2024 [facility] Comment on above: Ordered: 04/05/2024 Payers Date Payer Category Payer Self-pay [id number] 2020 [employer] Blue Shield BCBS [id number] 2020 Unknown [id number] 2017 Private Health Insurance [id number] 2017 Private Health Insurance [employer] Fer NADEEN xxxxxxxxxx 2017-Present [phone] [address] [place] [address] xxxxxxxxxx [id number] 1980 Unknown [id number] 2.16.840.1.106327.3.579.2 .356 1980 Unknown [id number] 2.16.840.1.541694.3.579.2 .356 1980 Unknown [id number] 2.16.840.1.396211.3.579.2 .356 1980 Unknown [id number] 2.16.840.1.321689.3.579.2 .185 1980 Unknown [id number] 2.16.840.1.339228.3.579.2 .593 1980 Unknown [id number] 2.16.840.1.438742.3.579.2 .593 1980 Unknown [id number] 2.16.840.1.385076.3.579.2 .593 1980 Unknown [id number] 2.16.840.1.269617.3.579.2 .593 1980 Unknown [id number] 2.16.840.1.015932.3.579.2 .593 1980 Unknown [id number] 2.16.840.1.054180.3.579.2 .593 1980 Unknown [id number] 2.16.840.1.516474.3.579.2 .196 1980 Unknown [id number] 2.16.840.1.432261.3.579.2 .196 1980 Unknown [id number] 2.16.840.1.513322.3.579.2 .196 1980 Unknown [id number] 2.16.840.1.700326.3.579.2 .1258 1980 Unknown [id number] 2.16.840.1.554750.3.579.2 .1258 1980 Unknown [id number] 2.16.840.1.207306.3.579.2 .1258 1980 Unknown [id number] 2.16.840.1.984560.3.579.2 .1258 1980 Unknown [id number] 2.16.840.1.638743.3.579.2 .1258 1980 Unknown [id number] 2.16.840.1.446199.3.579.2 .1258 1980 Unknown [id number] 2.16.840.1.750483.3.579.2 .1258 1980 Unknown [id number] 2.16.840.1.558632.3.579.2 .1258 1980 Unknown [id number] 2.16.840.1.207924.3.579.2 .1259 1980 Unknown [id number] 2.16.840.1.904071.3.579.2 .1259 1980 Unknown [id number] 2.16.840.1.813722.3.579.2 .1259 1959 Unknown [id number] Unknown [id number] 2.16.840.1.190074.3.579.2 .531 Social History Date Type Detail Facility Start: 04-28-1993 End: 10-07-2023 Tobacco smoking status NHIS Current every day smoker [facility] Start: 01-16-2018 End: 04-05-2024 Alcohol intake No [facility] Sex Assigned At Not on file [facility] Start: 1980 Sex Assigned At Male [facility] Start: 04-28-1993 History of tobacco use Cigarette Smo ker [facility] Start: 02-25-2023 End: 04-05-2024 Cigarettes smoked current (pack per day) - Reported 0.5 [facility] Start: 02-25-2023 End: 10-07-2023 Tobacco use and exposure Smokeless tobacco non-user [facility] Start: 05-05-2023 End: 10-08-2024 Alcohol intake Lifetime non-drinker (finding) [facility] [...] Desired Activity /State Clinical Notes 10-04-2021 to 10-08-2024 Wilfrido Moreno DPM - 10/08/2024 9:15 AM Tamanna Bolivar MA - 09/15/2024 8:00 AM EDMagalie Moreno DPM - 09/15/2024 8:00 AM EDTPatient Instructions Note Date & Type Note Facility 10-08-2024 History of Presen t illness Narrative [facility] CC: F/U [...] chest pain or calf pain noted. PCP: Adelita Epperson MD Past Medical History: Diagnosis Date Conductive [...] Hair growth is noted. No medial nail fold edema noted B/L. No varicosities noted. Neuro: Light [...] plans. Patient states that he understands all that has been explained and all questions were answered [...] inbalance Follow up in 6 weeks. Wilfrido Moreno DPM documented in this encounter [facility] 09-15-2024 History of Presen t illness Narrative .LR [facility] CC: Bilateral great toe pain HPI:Cas Calhoun is a 44 y.o. male who presents with complaint of bilateral great toe pain of the bilateral foot. Patient states that pain has been present for a few weeks but admits to issues in the past. Admits to increased pain with pressure to the area. + drainage and erythema noted to the area. Admits to long history of ingrown toenail in the past. States he has tried to cut them out himself but has not been successful. Patient is current every day smoker, about 1/2PPD, he is currently working on cessation. Denies any nausea, vomiting, fever, chills, shortness of breath, chest pain or calf pain noted. PCP: Adelita Epperson MD Past Medical History: Diagnosis Date Conductive [...] mouth every 6 (six) hours if needed phentermine (Adipex-P) 37.5 MG tablet Take 1 [...] to distal bilateral. Hair growth is noted. Mild medial nail fold edema noted B/L. No varicosities noted. Neuro: Light touch intact bilateral. Derm: Skin texture and turgor within normal limits. Incurvation noted to the medial border of the 1st digit, bilateral foot. There is no drainage. There is no erythema beyond the immediate affected nail fold. No evidence of ascending cellulitis. No rashes, subcutaneous nodules, or open lesions noted. Musculoskeletal/Orthopaedic: General foot morphology: Rectus. No gross digital deformity noted. Pain on palpation noted to the medial border of the 1st digit, bilateral foot. Assessment: Encounter Diagnoses Name Primary? Ingrown toenail Yes Bilateral foot pain Plan: A comprehensive history and physical examination were performed. Patient was educated on clinical and radiographic findings, diagnosis and treatment plans. Patient states that he understands all that has been explained and all questions were answered to their apparent satisfaction. Patient was educated on possible treatment options for ingrown toenail. Patient was educated on permanent nail avulsion procedure to the bilateral hallux medial nail border. Patient was educated on details of procedure as well as medically reasonable risks, benefits and complications. Verbal consent was obtained. Patient elects to proceed. Please see procedure note below. Home going instructions were dispensed to patient. Discussed smoking cessation and impact on healing. Patient expressed understanding. He is actively trying to quit at this time. Follow up in 2 weeks. Wilfrido Moreno DPM After a discussion of the options, the patient elects to proceed with a permanent nail avulsion procedure of the bilateral medial border of the bilateral hallux today under local digital block. The risks, benefits, potential complications, personnel present, and alternatives were discussed. The patient elected to proceed. Patient properly identified. Procedure site marked. A timeout was performed. A digital block of the 1st digit bilaterally was performed using a total of 6 cc of 1% Lidocaine plain. A tourniquet was then placed overlying the digit. After a betadine prep, a blunt elevator was used to free the offending nail border of the bilateral 1st digit and a longitudinal sectioning was performed using an nail nipper. The offending portion of nail plate was avulsed. The nail border was then inspected to insure removal of entire offending nail plate and this was noted to be the case. A phenol swab was applied to the nail matrix area and nail border for 3 applications of 10 seconds each. Irrigation was then performed using copious amounts of alcohol. The tourniquet was then released and capillary refill to the digit was immediate. Bacitracin and dry sterile dressing was applied. Homegoing instructions were dispensed, including office and process control specialist contact numbers. A total of 30 minutes was spent in formulation of this note, review of charts, labs, imaging with a minimum of 50% of the time spent in face to face with with the patient. All questions and concerns were answered to the patients satisfaction. documented in this encounter [facility] 09-15-2024 Instructions Linda Bolivar MA - 09/15/2024 8:00 AM EDT POST-OPERATIVE NAIL AVULSION PATIENT INSTRUCTIONS Minimize your activity until the anesthesia wears off in about 2-8 hours. You may then increase your activity to tolerance. Avoid tight fitting shoes for the first 24-48 hours. Remove the bandage the day following surgery. If the bandage sticks to the operative site, soak the site in warm water. This should loosen the gauze and you may remove gently. Soak the operated toe in warm water and Epsom salts 2x/day for 15-20 minutes. Use 1-2 tablespoons of Epsom salts per quart of warm water. Soak daily until drainage stops. After soaking, apply antibiotic ointment to the operative area and cover with a cloth Band-Aid. If you experience pain, you may take Aspirin, Tylenol, Advil or Aleve providing that you have no allergies or intolerances to these medications. The operative toe is expected to have mild drainage and bleeding. The entire healing time varies for each patient. Average healing time is 2-4 weeks. If questions or problems arise, please call the office at [phone]. documented in this encounter [facility] 08-25-2024 History of Presen t illness Narrative Images from the original note were not included. Cas Calhoun is a 44 y.o. male presents with chief complaint of Cellulitis follow-up (Pt was seen in office 08/09/2024. Prescribed Bactrim bid for 7 days) HPI: History of Present Illness The patient is a 44-year-old male who presents for follow-up of an abscess. He took Bactrim twice daily for 7 days. Abscess The abscess was evaluated by Lynnette on 08/09/2024, and improvement is noted. However, a lump remains in the affected area. The 7-day course of antibiotics has been completed. The patient suspects the presence of an ingrown hair within the abscess. Aquaphor is available at home for topical application. - Onset: Evaluated on 08/09/2024. - Location: Affected area with a remaining lump. - Duration: 7-day course of antibiotics completed. - Character: Abscess with suspected ingrown hair. - Alleviating Factors: Improvement noted; Aquaphor available for topical application. I have reviewed and reconciled the history [...] Lymphedema 10/08/2018 Migraine Obesity (BMI 30-39.9) 02/24/2023 SURGICAL HISTORY: Past Surgical History: Procedure Laterality Date EPIDURAL BLOCK INJECTION 03/28/[address] Tom Love LUMBAR EPIDURAL INJECTION 2016 OTHER SURGICAL HISTORY 1987 Ear Surgery RADIOFREQUENCY ABLATION 2019 SPINE SURGERY 02/03/2018 LASER TYMPANOPLASTY 2013 SOCIAL HISTORY: Social History Tobacco Use Smoking status: Every Day Current packs/day: 0.50 Average packs/day: 0.5 packs/day for 31.3 years (15.7 ttl pk-yrs) Types: Cigarettes Start date: 04/28/1993 [...] ray MEDICATIONS: Current Outpatient Medications Medication Instructions Cannabinoids (medical cannabis) ibuprofen 800 mg, Every 6 hours PRN phentermine (ADIPEX-P) 37.5 mg, Oral, Daily before breakfast sulfamethoxazole-trimethoprim (Bactrim DS) 800-160 MG per tablet 1 tablet, Oral, Every 12 hours ALLERGIES: No Known Allergies PHYSICAL EXAM: Visit Vitals BP 120/70 (BP Location: Left arm, Patient Position: Sitting) Pulse 78 SpO2 98% Smoking Status Every Day BP Readings from Last 3 Encounters: 08/25/24 120/70 08/09/24 136/80 04/05/24 126/60 Wt Readings from Last 3 Encounters: 08/09/24 287 lb 06/15/24 285 lb 04/05/24 285 lb Physical Exam Skin: General: Skin is warm and dry. Findings: No erythema. Comments: Firmness in left groin where abscess was present, no erythema or signs of infection present Neurological: Mental Status: He is alert and oriented to person, place, and time. Psychiatric: Mood and Affect: Mood normal. Thought Content: Thought content normal. Results ASSESSMENT AND PLAN: Assessment & Plan 1. Cellulitis of groin - Advised to apply Aquaphor to the affected area. - Prescription for Bactrim provided, to be used only if necessary while he is on vacation. - Since no openings present we discussed it is okay to swim but take ATB with him incase area appears infected. - sulfamethoxazole-trimethoprim (Bactrim DS) 800-160 MG per tablet; Take 1 tablet by mouth every 12 (twelve) hours for 10 days Dispense: 20 tablet; Refill: 0 2. Groin abscess (Primary) As above. - sulfamethoxazole-trimethoprim (Bactrim DS) 800-160 MG per tablet; Take 1 tablet by mouth every 12 (twelve) hours for 10 days Dispense: 20 tablet; Refill: 0 documented in this encounter [facility] 08-09-2024 History of Presen t illness Narrative Images from the original note were not included. Cas Calhoun is a 44 y.o. male presents with chief complaint of Mass (Noticed over the weekend, hard bump on abdomen, which is getting worse/bigger.) HPI: History of Present Illness The patient is a 44-year-old male who presents today with a skin rash. He reports the onset of a painful, hard lump on his abdomen, which he first noticed over the weekend. The lump, initially singular, has now developed into two distinct lumps. His mother suspects the cause to be an ingrown hair, a condition he has not previously experienced. The lumps began to manifest on Friday night and have since started to spread. He has not yet attempted to alleviate the discomfort with warm compresses but plans to do so starting today. He reports no systemic symptoms such as fever, chills, or sweats. He also reports no respiratory symptoms such as cough or shortness of breath, and no cardiac symptoms such as chest pain. He does report experiencing migraines. He is not allergic to any antibiotics. He had a CT scan of his abdomen a year ago. ALLERGIES The patient has no known allergies. MEDICATIONS Current: medical marijuana, Adipex, ibuprofen I have reviewed and reconciled the history [...] Lymphedema 10/08/2018 Migraine Obesity (BMI 30-39.9) 02/24/2023 SURGICAL HISTORY: Past Surgical History: Procedure Laterality Date EPIDURAL BLOCK INJECTION 03/28/[address] Tom Love LUMBAR EPIDURAL INJECTION 2016 OTHER SURGICAL HISTORY 1987 Ear Surgery RADIOFREQUENCY ABLATION 2019 SPINE SURGERY 02/03/2018 LASER TYMPANOPLASTY 2013 SOCIAL HISTORY: Social History Tobacco Use Smoking status: Every Day Current packs/day: 0.50 Average packs/day: 0.5 packs/day for 31.3 years (15.6 ttl pk-yrs) Types: Cigarettes Start date: 04/28/1993 [...] ray MEDICATIONS: Current Outpatient Medications Medication Instructions Cannabinoids (medical cannabis) ibuprofen 800 mg, Every 6 hours PRN phentermine (ADIPEX-P) 37.5 mg, Oral, Daily before breakfast ALLERGIES: No Known Allergies PHYSICAL EXAM: Visit Vitals BP 136/80 (BP Location: Left arm, Patient Position: Sitting) Pulse 81 Ht 6' 2 Wt 287 lb SpO2 95% BMI 36.85 kg/m Smoking Status Every Day BSA 2.61 m BP Readings from Last 3 Encounters: 08/09/24 136/80 04/05/24 126/60 11/12/23 (!) 138/92 Wt Readings from Last 3 Encounters: 08/09/24 287 lb 06/15/24 285 lb 04/05/24 285 lb Physical Exam Constitutional: Appearance: He is well-groomed and overweight. HENT: Head: Normocephalic. Abdominal: General: Bowel sounds are normal. Palpations: Abdomen is soft. Tenderness: There is abdominal tenderness. Skin: General: Skin is warm. Comments: Redness of left lower, and firm red palpable, very tender area, red yeast like area Neurological: Mental Status: He is oriented to person, place, and time. Psychiatric: Mood and Affect: Mood normal. Behavior: Behavior is cooperative. Thought Content: Thought content normal. Judgment: Judgment normal. Results Imaging CT scan of abdomen conducted a year ago was normal. ASSESSMENT AND PLAN: Assessment & Plan 1. Cellulitis of abdominal wall (Primary) - sulfamethoxazole-trimethoprim (Bactrim DS) 800-160 MG per tablet; Take 1 tablet by mouth in the morning and 1 tablet before bedtime. Do all this for 7 days. Dispense: 14 tablet; Refill: 0 2. Abscess - sulfamethoxazole-trimethoprim (Bactrim DS) 800-160 MG per tablet; Take 1 tablet by mouth in the morning and 1 tablet before bedtime. Do all this for 7 days. Dispense: 14 tablet; Refill: 0 -He presents with a hard, painful lump on the abdomen that started on Friday night. The area is red and sore, suggesting a possible abscess or cellulitis. He reports no fever, chills, sweats, cough, shortness of breath, or chest pain. A CAT scan of the abdomen from a year ago was normal. He is advised to start warm compresses and keep the area dry after showering using a blow dryer on a low setting. A prescription for oral antibiotics will be sent to [facility] in [place]. If there is no improvement with oral antibiotics, intravenous antibiotics may be considered. documented in this encounter [facility] 06-15-2024 History of Presen t illness Narrative [...] in 1 year documented in this encounter [facility] 04-05-2024 History of Presen t [...] He has also reduced his consumption of [employer] energy drinks to two per day and [...] spondylosis without myelopathy 04/30/2016 Lymphedema 10/08/2018 Migraine (CMS/HCC) Obesity (BMI 30-39.9) 02/24/2023 SURGICAL HISTORY: Past [...] Hepatic function panel documented in this encounter [facility] 03-24-2024 Telephone encount er Note Pt requesting a refill on Adipex to [facility] in [place] [facility] 03-24-2024 Miscellaneous Notes Formattin g of this note might be different from the original. Pt requesting a refill on Adipex to [facility] in [place] documented in this encounter [facility] 06-03-2023 Telephone encount er Note Pt called back and would like to do MRI at [facility]. [facility] 06-03-2023 Miscellaneous Notes Formattin g of this note might be different from the original. Pt called back and would like to do MRI at [facility]. documented in this encounter [facility] 07-23-2022 Note PAIN MANAGEMENT CONS ULTATION CONSULTATION DATE: 07/23/2022 ADDENDUM: The dictation mentions denervation of the L4-5, L5-S1 facet joint under fluoroscopic guidance by using radiofrequency ablation on the left side. The dictation should read: Proceed with radiofrequency ablation of the L2-3, L4-5 levels under fluoroscopic guidance on the left side. [facility] 07-23-2022 Note PAIN MANAGEMENT CONS ULTATION CONSULTATION DATE: 07/23/2022 ADDENDUM: The dictation mentions denervation of the L4-5, L5-S1 facet joint under fluoroscopic guidance by using radiofrequency ablation on the left side. The dictation should read: Proceeded with radiofrequency ablation of the L2-3, L4-5 levels under fluoroscopic guidance on the left side. [facility] 07-23-2022 Note CONSULTATION CONSULTATION DATE: 07/23/2022 TO: [...] to proceed with the outlined plan. 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 He reports 0/10 pain [...] in six months' time for re-evaluation. [facility] 01-03-2022 Note CONSULTATION CONSULTATION DATE: 01/03/2022 HISTORY [...] three months' time, unless otherwise indicated. [facility] 10-04-2021 Note CONSULTATION CONSULTATION DATE: 10/04/2021 This [...] gluconate 800 mg q.h.s. in addition to [id number] ibuprofen 600 mg q.a.m. before work. Daily stretching and the use of heat were encouraged to aid with the spasms. We discussed about different vitamin regimens and the patient was willing to try. He will be followed up in the clinic in three months' time unless otherwise indicated. The patient agrees with the plan of care. [facility] Signed and Approved by: SEAN WELLS . 10/11/2021 16:03:00 [facility] Evaluation note Diagnosis DDD (degenerative disc disease), lumbar- Primary Degeneration of lumbar or lumbosacral intervertebral disc Lumbar herniated disc documented in this encounter [facility] Healthcare[facility] noteNo assessment information [facility] Work Phone: Evaluation note* Diagnosis Obesity (BMI 30-39.9) documented in this encounter [facility] Healthcare[facility] note* Diagnosis Lumbar paraspinal muscle spasm- Primary Other symptoms referable to back Lumbar radiculopathy Thoracic or lumbosacral neuritis or radiculitis, unspecified documented in this encounter [facility] Healthcare[facility] note* Diagnosis Lumbar paraspinal muscle spasm- Primary Other symptoms referable to back Lumbar radiculopathy Thoracic or lumbosacral neuritis or radiculitis, unspecified documented in this encounter [facility] Healthcare[facility] note* Diagnosis Obesity (BMI 30-39.9) documented in this encounter [facility]* Diagnosis Osteoarthritis of spine with radiculopathy, lumbosacral region- Primary Severe obesity (BMI 35.0-39.9) with comorbidity (CMS/HCC) BMI 36.0-36.9,adult Palpitations Family history of early CAD Family history of ischemic heart disease Cigarette nicotine dependence without complication Annual physical exam Routine general medical examination at a health care facility Medication management documented in this encounter [facility] Healthcare[facility] note* Diagnosis Obesity (BMI 30-39.9) documented in this encounter [facility] note* Diagnosis History of cholesteatoma- Primary Chronic mastoiditis of left side Hearing loss of left ear, unspecified hearing loss type documented in this encounter [facility] note* Diagnosis Cellulitis of abdominal wall- Primary Cellulitis and abscess of trunk Abscess Cellulitis and abscess of unspecified site documented in this encounter [facility]* Diagnosis Groin abscess- Primary Cellulitis and abscess of trunk Cellulitis of groin Cellulitis and abscess of trunk documented in this encounter [facility]* Diagnosis Ingrown toenail- Primary Ingrowing nail Bilateral foot pain documented in this encounter [facility]* Diagnosis Ingrown toenail- Primary Ingrowing nail Tinea pedis of both feet documented in this encounter [facility] HealthcareReason for visit Narrative* Rehabilitation - Outpatient (Routine) - Authorized Specialty Diagnoses / Procedures Referred By Selvin garcia Referred To Contact Physical Therapy Diagnoses Lumbar paraspinal muscle spasm Lumbar radiculopathy Procedures [place] OFFICE/OUTPATIENT [facility] 60 MINUTES Adelita Epperson MD [address] [place] [address] Phone: tel: fax: Antonio Solomon, PT [address] [place] [address] Phone: tel: fax: Referral ID Status Reason Start Date Expiration Date Visits Requested Visits Authorized [id number] Authorized Consult and Treat 03/02/2024 08/29/2024 53 [...] FoundDocuments on File Type Date Recorded 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 Advance Directives and Living Will Power of Cuff Presser Advance Directive Response Recorded Date/ Time Advance [...] Procedures MR lumbar spine wo contrast Laurie Haley, SOLAR SALES REPRESENTATIVE [address] [facility] [address] [place] [address] Referral ID Status Reason Start Date Expiration Date V isits Requested Visits Authorized [id number] Pending Review 06/04/2023 12/01/2023 1 1 Additional Source Comments (unrecognized sect ion and content) No Status Records FoundNo Status Records FoundNo Status Records FoundNo Status Records FoundNo Status Records FoundNo Status Records FoundNo Status Records FoundNo Status Records FoundNo Status Records Found INFORMATION SOURCE (unrecogn ized section and content) DATE CREATED AUTHOR 04/05/[address] [facility] ical [facility] DATE CREATED AUTHOR AUTHOR'S ORGANIZ ATION 04/05/2018 [facility] DATE CREATED AUTHOR AUTHOR'S ORGANIZ ATION 12/20/2018 [facility] DATE CREATED AUTHOR AUTHOR'S ORGANIZ ATION 01/31/2019 [facility] DATE CREATED AUTHOR AUTHOR'S ORGANIZ ATION 08/08/2021 [facility] dical Specialist DATE CREATED AUTHOR AUTHOR'S ORGANIZ ATION 08/09/2022 [facility] DATE CREATED AUTHOR AUTHOR'S ORGANIZ ATION 09/04/2023 [facility] DATE CREATED AUTHOR AUTHOR'S ORGANIZ ATION 07/12/2024 [facility] DATE CREATED AUTHOR AUTHOR'S ORGANIZ ATION 10/11/2024 [facility] dical Specialists EPIC Care Teams (unrecognized sec tion and content) Hat Forming Machine Feeder Relationship Specialty Start Date End Date Adelita Epperson MD [address] [place] [address] PCP - General Internal Medicine 11/06/22 Team Status: Active Member Role Status Dates Adelita Epperson MD Primary Care Provider Active Team Status: Inactive Member Role Status Dates Adelita Epperson MD Primary Care Provider Active St art: September 03, 2023 End: September 03, 2023 Manjinder Lynn Jr, DO Attending Provider Active S tart: September 03, 2023 End: September 03, 2023 Hat Forming Machine Feeder Relationship Specialty Start Date End Date Adelita Epperson MD [address] [place] [address] PCP - General Internal Medicine 11/06/22 Adelita Epperson MD [address] [facility] [address] [place] [address] PCP - [employer] 06/27/23 Hat Forming Machine Feeder Relationship Specialty Start Date End Date Adelita Epperson MD [address] [place] [address] PCP - General Internal Medicine 11/06/22 Adelita Epperson MD [address] [place] [address] PCP - [employer] 06/27/23 Hat Forming Machine Feeder Relationship Specialty Start Date End Date Adelita Epperson MD [address] [place] [address] PCP - General Internal Medicine 11/06/22 Adelita Epperson MD [address] [place] [address] PCP - [employer] 06/27/23 Hat Forming Machine Feeder Relationship Specialty Start Date End Date Adelita Epperson MD [address] [place] [address] PCP - General Internal Medicine 11/06/22 Adelita Epperson MD [address] [place] [address] PCP - [employer] 06/27/23 Hat Forming Machine Feeder Relationship Specialty Start Date End Date Adelita Epperson MD [address] [place] [address] PCP - General Internal Medicine 11/06/22 Adelita Epperson MD [address] [place] [address] PCP - [employer] 06/27/23 Hat Forming Machine Feeder Relationship Specialty Start Date End Date Adelita Epperson MD [address] [place] [address] PCP - General Internal Medicine 11/06/22 Adelita Epperson MD [address] [place] [address] PCP - [employer] 06/27/23 Hat Forming Machine Feeder Relationship Specialty Start Date End Date Adelita Epperson MD [address] [place] [address] PCP - General Internal Medicine 11/06/22 Adelita Epperson MD [address] [place] [address] PCP - [facility] 06/27/23 Hat Forming Machine Feeder Relationship Specialty Start Date End Date Adelita Epperson MD [address] [place] [address] PCP - General Internal Medicine 11/06/22 Hat Forming Machine Feeder Relationship Specialty Start Date End Date Adelita Epperson MD [address] [place] [address] PCP - General Internal Medicine 11/06/22 Hat Forming Machine Feeder Relationship Specialty Start Date End Date Adelita Epperson MD [address] [place] [address] PCP - General Internal Medicine 11/06/22 Hat Forming Machine Feeder Relationship Specialty Start Date End Date Adelita Epperson MD [address] [place] [address] PCP - General Internal Medicine 11/06/22 Goals (unrecognized section and content) Goals may [...] Med Refill 05/30/2024 Reason Comments Mastoid Cleaning Reason Comments Mass Noticed over the wee kend, hard bump on abdomen, which is getting worse/bigger. Reason Comments Cellulitis follow-up Pt was seen in offi ce 08/09/2024. Prescribed Bactrim bid for 7 days FOR RECORDS PERTAINING TO PATIENTS WHO ARE [...] BE BASED ON THE PRIMARY CLINICAL RECORDS. [facility] [employer] [facility]. provides no warranty or guarantee of the accuracy or completeness of information in this document.
[2024-10-11 09:05] VITALS: BP 148/108; PULSE 73; TEMP 36.6; O2SAT 100
[2024-10-11 09:20] VITALS: BP 153/93; PULSE 73; O2SAT 99
[2024-10-11 09:21] VITALS: BP 160/94; PULSE 72; O2SAT 100
[2024-10-11] MEDS: LIDOCAINE HCL 2% 400 MG/20 ML MDV INJ (09:23)
[2024-10-11] MEDS: BUPIVACAINE HCL 0.25% PF 25 MG/10 ML VIAL 8 ML INJ (09:23)
--- NOTE | 2024-10-11 09:23 | W.PM.PROCNOT ---
Date of procedure: 10/11/24 Pre-op diagnosis: Pain due to lumbar spondylosis without myelopathy Post-op diagnosis: same as pre-op Procedure: Procedure: Bilateral L3-4, L4-5 medial branch block Medications: Bupivacaine 0.25% 6cc The patient was seen and examined in the preoperative holding area.? An informed consent was obtained and placed on the chart.? The patient was brought to the medical procedure unit and placed in the prone position.? A timeout was completed verifying correct patient, procedure site, positioning, plan, and special equipment.? Using aseptic technique, the needle was placed at left L3. Under direct fluoroscopic visualization a Quincke-tipped spinal needle was advanced to the junction of the superior articulating process with the transverse process at the designated medial branch segment.? Preceded by negative aspiration, the above-mentioned injectate was placed in 1 mL aliquots.? The procedure was repeated at left L4, 5.? The needle was removed and insertion site was covered. The same procedure, at the same levels, was completed on the right side. The patient was taken to the postprocedural recovery area and monitored for an appropriate length of time before found suitable for discharge in the company of a responsible adult. Anesthesia: Local Surgeon: Laura Luevano Pathology: none sent Condition: stable Disposition: no change
== END 2024-10-11 09:30 | disposition home or self-care (01) ==
LOC: SURGOUT 08:33
PROVIDERS: PCP Internal Medicine; Visit Provider Anesthesiology
DX: M47.816 Spondylosis without myelopathy or radiculopathy, lumbar region (principal); M54.50 Low back pain, unspecified
CPT/HCPCS: 64493; 64494; J0665

== ENCOUNTER 2024-10-20 07:44 | Outpatient (OUT) | payer BC, SELFPAY ==
--- OUTSIDE RECORDS SUMMARY | 2024-10-08 09:15 | XMS_ITS | Encounter Summary ---
Author Organization [facility] Address [address] [place] [address] Care Team Providers Care Sql Ssis Developer Name Role Phone Paulino Paez MD Primary Care Provider [phone] Encounter Details Date Type Department Care Team (Late st Contact Info) Description 10/08/2024 9:15 AM EDT Office Visit [facility] [address] [facility] [address] [place] [id number] Wilfrido Martinez, LYNDON [address] [facility] [address] [place] [address] Ingrown toenail (Primary Dx); Tinea pedis of both feet Social History Tobacco Use Types Packs/Day Years Used Date Smoking Tobacco: Every Day Cigarettes 0.5 31.5 Started: 04/28/1993 Smokeless Tobacco: Never Alcohol Use Standard Drinks/Week Comments Never 0 (1 standard drink = 0.6 oz pure alcohol) caffeine:Type: energy drink 1-- 16 0z can per day PHQ-2 Answer Date Recorded Patient Health Questionnaire-2 Score 0 04/05/2024 Sex and Gender Information Value Date Recorded Sex Assigned at Male 10/10/2022 2:43 PM EDT Legal Sex Male 7:22 PM EDT Gender Identity Male 10/10/2022 2:43 PM EDT Sexual Orientation Choose not to disclose 2022 2:43 PM EDT 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 male who presents for follow up after bilateral great toe partial permanent nail procedure about 3 weeks ago. Relates for the past two weeks he has performed the epsom salt soaks and applied antibiotic ointment daily. Denies pain to site. States no drainage or erythema is noted. Relates he would like an RX for tinea pedis that we discussed at last visit. Relates he does have dry and flaking skin to plantar foot. Patient is current every day smoker, about 1/2PPD, he is currently working on cessation. Denies any nausea, vomiting, fever, chills, shortness of breath, chest pain or calf pain noted. PCP: Paulino Paez MD Past Medical History: Diagnosis Date Conductive hearing loss of left ear with unrestricted hearing of right ear Displacement of lumbar intervertebral disc without myelopathy 01/24/2010 Headache History of degenerative disc disease Laryngopharyngeal reflux (LPR) 02/24/2023 Lumbar radiculopathy 02/24/2023 Lumbosacral spondylosis Lumbosacral spondylosis without myelopathy 04/30/2016 Lymphedema 10/08/2018 Migraine Obesity (BMI 30-39.9) 02/24/2023 Current Outpatient Medications Medication Sig Dispense Refill Cannabinoids (medical cannabis) ibuprofen 800 MG tablet Take 800 mg by mouth every 6 (six) hours if needed ketoconazole (NIZOral) 2 % cream Apply topically Daily Apply to plantar foot and webspaces bilaterally daily 60 g 2 phentermine (Adipex-P) 37.5 MG tablet Take 1 tablet (37.5 mg) by mouth in the morning. Take before meals. 90 tablet 0 No current facility-administered medications for this visit. Patient has no known allergies. Physical Exam: There were no vitals taken for this visit. Cas is a pleasant, cooperative, well developed 44 y.o. adult male. The patient is alert and oriented to time, place and person. He has normal affect and mood. Vascular: DP and PT pulses are palpable. CFT less than 3 seconds to all digits bilateral. Skin temperature is warm to warm from proximal to distal bilateral. Hair growth is noted. No medial nail foldedema noted B/L. No varicosities noted. Neuro: Light touch intact bilateral. Derm: Skin texture and turgor within normal limits. Operative site to medial border of the 1st digit, bilateral foot is healed without sign of infection noted. There is no drainage. There is no erythema beyond the immediate affected nail fold. No evidence of ascending cellulitis. No rashes, subcutaneous nodules, or open lesions noted. There is dry flaking skin in moccasin distribution to bilateral foot with mild erythema noted. Musculoskeletal/Orthopaedic: General foot morphology: Rectus. No gross digital deformity noted. No pain on palpation noted to the medial border of the 1st digit, bilateral foot. Assessment: Encounter Diagnoses Name Primary? Ingrown toenail Yes Tinea pedis of both feet Plan: A comprehensive history and physical examination were performed. Patient was educated on clinical and radiographic findings, diagnosis and treatment plans. Patient states that he understands all thathas been explained and all questions were answered to their apparent satisfaction. Patient seen and evaluated Operative sites are healed without sign of infection Patient to continue to monitor for recurrence Discussed he can discontinue epsom salt soaks at this time as well as antibiotic ointment to site unless he notices active drainage In regards to his tinea pedis, RX for ketoconazole sent to patient pharmacy with instructions for use Discussed importance of changing moist socks or boots to decrease moisture inbalance Follow up in 6 weeks. Wilfrido Martinez DPM documented in this encounter Plan of Treatment Upcoming Encounters Date Type Department Care Team (Late st Contact Info) Description 11/23/2024 9:15 AM EDT Office Visit [facility] [address] [place] [address] Wilfrido Martinez DPM [address] [place] [address] 06/21/2025 3:45 PM EST [facility] [address] [place] [address] Al Chi, DO [address] [place] [address] documented as of this encounter Visit Diagnoses Diagnosis Ingrown toenail- Primary Ingrowing nail Tinea pedis of both feet documented in this encounter Care Teams Sql Ssis Developer Relationship Specialty Start Date End Date Paulino Paez MD [address] [place] [address] PCP - General Internal Medicine 11/06/22 documented as of this encounter
--- OUTSIDE RECORDS SUMMARY | 2024-10-20 07:47 | XMS_ITS | Clinical Summary ---
Author Organization [facility] Address [address] [place] [address] Care Team Providers Care Office Worker Name Role Phone Paulino Paez MD Primary Care Provider [phone] Allergies No known active allergies Medications naproxen [...] of Treatment Not on file Care Teams Office Worker Relationship Specialty Start Date End Date Paulino Paez MD PCP - General 06/30/17
--- OUTSIDE RECORDS SUMMARY | 2024-10-20 07:47 | XMS_ITS | Clinical Summary ---
Author Organization [facility] Address [facility] [place] [address] Care Team Providers Care Mold Construction Supervisor Name Role Phone Unavailable Primary Care Provider [...]
--- OUTSIDE RECORDS SUMMARY | 2024-10-20 07:47 | XMS_ITS | Encounter Summary ---
Author Organization [facility] Address [address] [facility] [place] [address] Care Team Providers Care Energy Audit Advisor Name Role Phone Paulino Paez MD Primary Care Provider Paulino Paez MD Unavailable [phone] Encounter Details Date Type Department Care Team (Late Contact Info) Description 07/28/2023 Orders Only [facility] [address] [place] [address] A, Unknown Practice [address] [place], [place] [address] Social History Tobacco Use Types Packs/Day Years Used Date Smoking Tobacco: Every Day Cigarettes 0.5 31.5 Started: 04/28/1993 Smokeless Tobacco: Never Alcohol Use Standard Drinks/Week Comments Never 0 (1 standard drink = 0.6 oz pure alcohol) caffeine:Type: energy drink 1-- 16 0z can per day PHQ-2 Answer Date Recorded Patient Health Questionnaire-2 Score 0 11/07/2022 Sex and Gender Information Value Date Recorded Sex Assigned at Male 10/10/2022 2:43 PM EDT Legal Sex Male 7:22 PM EDT Gender Identity Male 10/10/2022 2:43 PM EDT Sexual Orientation Choose not to disclose 2022 2:43 PM EDT 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 [place] [address] 06/21/2025 3:45 PM EST Office Visit [facility] [address] [place] [address] Al Chi, DO [address] [place] [address] documented as of this encounter Procedures Procedure Name Priority Date/Time Associated Diagnosis Comments CT ABDOMEN & PELVIS WO Routine 07/27/2023 10:05 AM EDT documented in this encounter Results * CT ABDOMEN & PELVIS WO (07/27/2023 10:05 AM EDT) Anatomical Region Laterality Modality Radiographic Nicole ging us Unknown Practice A IMG XR PROCEDURES Final Resul t documented in this encounter Visit Diagnoses Not on filedocumented in this encounter Care Teams Energy Audit Advisor Relationship Specialty Start Date End Date Paulino Paez MD [address] [place] [address] PCP - General Internal Medicine 11/06/22 Paulino Paez MD [address] [place] [address] PCP - [place] [employer] 06/27/23 documented as of this encounter
--- OUTSIDE RECORDS SUMMARY | 2024-10-20 07:47 | XMS_ITS | Encounter Summary ---
Author Organization [facility] Address [address] [place] [address] Care Team Providers Care Wrapper Dipper Name Role Phone Paulino Paez MD Primary Care Provider [phone] Pcp, No LOCOMOTIVE OBSERVER Primary Care Provider Unavailabl e Source Comments In the event this information is protected by the Federal Confidentiality of Alcohol and Drug AbusePatient Records regulations: The Federal rules restrict any use of the information to criminally investigate or prosecute any alcohol or drug abuse patient.[facility] Encounter Details Date Type Department Care Team (Late st Contact Info) Description 05/11/2012 Letters (in) [facility] [place] [address] [place] [address] Pedro Mcfadden MD Social History [...] May 11, 2012 RE: [facility] #:[id number] Dear Dr. Paez: Thank you for asking [...] for this referral. Sincerely, Danny Mcfadden M.D., [facility] MJM:[id number] / cc: documented in this encounter Plan of Treatment Not on file documented as of this encounter Visit Diagnoses Not on filedocumented in this encounter Care Teams Wrapper Dipper Relationship Specialty Start Date End Date Paulino Paez MD PCP - General 11/28/09 11/09/21 Teena Gray APRN PCP - General 11/10/21 05/28/22 documented as of this encounter
--- OUTSIDE RECORDS SUMMARY | 2024-10-20 07:47 | XMS_ITS | Encounter Summary ---
Author Organization [facility] Address [address] [place] [address] Care Team Providers Care Genetics Physician Name Role Phone Paulino Paez MD Primary Care Provider Pauilno Paez MD Unavailable [phone] Encounter Details Date Type Department Care Team (Late Contact Info) Description 06/13/2023 Orders Only [facility] [address] [place] [address] A, Unknown Practice [address] [place], [place] [address] Social History Tobacco Use Types Packs/Day Years Used Date Smoking Tobacco: Every Day Cigarettes 0.5 15 Smokeless Tobacco: Never Alcohol Use Standard Drinks/Week Comments Never 0 (1 standard drink = 0.6 oz pure alcohol) caffeine:Type: energy drink 3-- 16 0z cans per day PHQ-2 Answer Date Recorded Patient Health Questionnaire-2 Score 0 11/07/2022 Sex and Gender Information Value Date Recorded Sex Assigned at Male 10/10/2022 2:43 PM EDT Legal Sex Male 7:22 PM EDT Gender Identity Male 10/10/2022 2:43 PM EDT Sexual Orientation Choose not to disclose 2022 2:43 PM EDT 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 [place] [address] 06/21/2025 3:45 PM EST Office Visit [facility] [address] [place] [address] Al Chi, DO [address] [place] [address] documented as of this encounter Procedures Procedure Name Priority Date/Time Associated Diagnosis Comments MRI LUMBAR SPINE WO CONTRAST Routine 06/13/2023 9:41 AM EST documented in this encounter Results * MRI LUMBAR SPINE WO CONTRAST (06/13/2023 9:41 AM EST) Anatomical Region Laterality Modality Radiographic Nicole ging us Unknown Practice A IMG XR PROCEDURES Final Resul t documented in this encounter Visit Diagnoses Not on filedocumented in this encounter Care Teams Genetics Physician Relationship Specialty Start Date End Date Paulino Paez MD [address] [place] [address] PCP - General Internal Medicine 11/06/22 Paulino Paez MD [address] [place] [address] PCP - [place] [employer] 06/27/23 documented as of this encounter
--- OUTSIDE RECORDS SUMMARY | 2024-10-20 07:47 | XMS_ITS | Encounter Summary ---
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 [facility] [address] [place] [address] 06/21/2025 3:45 PM EST Office Visit [facility] [address] [facility] [place] [address] Al Chi, DO [address] [place] [address] documented as of this encounter Visit Diagnoses Not on filedocumented in this encounter Care Teams Supervisor Salvage Relationship Specialty Start Date End Date Paulino Paez MD [address] [place] [address] PCP - General Internal Medicine 11/06/22 documented as of this encounter
--- OUTSIDE RECORDS SUMMARY | 2024-10-20 07:47 | XMS_ITS | Encounter Summary ---
Author Organization [facility] Address [address] [place] [address] Care Team Providers Care Guidance Adviser Name Role Phone Paulino Paez MD Primary Care Provider [phone] Paulino Paez MD Unavailable [phone] Encounter Details Date Type Department Care Team (Late Contact Info) Description 05/04/2023 Abstract [facility] [address] [facility] [address] [place] [address] Laurie Haley NP Social History Tobacco Use Types Packs/Day Years Used Date Smoking Tobacco: Every Day Cigarettes 0.5 15 Smokeless Tobacco: Never Tobacco Cessation:Ready to Q uit: Not Asked; Counseling Given: Not Answered Alcohol Use Standard Drinks/Week Comments Never 0 [...] 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 [place] [address] 06/21/2025 3:45 PM EST Office Visit [facility] [address] [place] [address] Al Chi, DO [address] [place] [address] documented as of this encounter Visit Diagnoses Not on filedocumented in this encounter Care Teams Guidance Adviser Relationship Specialty Start Date End Date Paulino Paez MD [address] [place] [address] PCP - General Internal Medicine 11/06/22 Paulino Paez MD [address] [place] [address] PCP - [place] Adan 06/27/23 documented as of this encounter
--- OUTSIDE RECORDS SUMMARY | 2024-10-20 07:47 | XMS_ITS | Encounter Summary ---
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 [place] [address] 06/21/2025 3:45 PM EST Office Visit [facility] [address] [place] [address] Al Chi, DO [address] [place] [address] documented as of this encounter Procedures Procedure Name Priority Date/Time Associated Diagnosis Comments MR LUMBAR SPINE WO CON 06/13/2023 8:29 AM EST documented in this encounter Results * MR LUMBAR SPINE WO CON (06/13/2023 8:29 AM EST) Anatomical Region Laterality Modality Other 06/13/2023 8:29 AM EST Narrative 06/13/2023 8:32 [place] [address] Magnetic Resonance Report Signed Patient: LUÍS CALHOUN MR#: [id number] : 1980 Acct:[id number] Age/Sex: 43 / M ADM Date: 06/13/23 Loc: MRI Attending Dr: MARCEL BARRERA MONEY COUNTER Ordering Physician: MARCEL BARRERA NP Date of Service: 06/13/23 Procedure(s): MR lumbar spine wo con Accession Number(s): [id number] cc: MARCEL BARRERA MONEY COUNTER; ADELITA EPPERSON [address] [address] Patient Name: LUÍS CALHOUN MRN: [id number]:[id number] date: 1980 Sex: M Assigned Patient Location: MRI Current Patient Location: MRI Accession/Order Number: [id number] Exam Date: 06/13/2023 07:38 Report Date: 06/13/2023 08:29 At the request of: MARCEL BARRERA Procedure: MR lumbar spine wo con EXAM: MR lumbar spine wo con HISTORY: Degenerative Disc Disease Lumbar M51.36 COMPARISON: MRI lumbar spine 04/20/2021. TECHNIQUE: Multiplanar multisequence MR imaging of the lumbar spine was performed without intravenous contrast. FINDINGS: Alignment: Trace retrolisthesis of L3 on L4, minimally progressed from prior. Vertebrae: Vertebral body heights are maintained. No marrow signal abnormalities to suggest neoplasm. Conus medullaris: Conus medullaris terminates in normal position at L1. Normal signal and contour. Degenerative changes: T12-L1: No substantial canal or foraminal stenosis. L1-L2: No substantial canal or foraminal stenosis. L2-L3: No substantial canal or foraminal stenosis. L3-L4: Disc desiccation with mild disc height loss. Tiny left subarticular protrusion which contacts but does not displace or deform the descending left L4 nerve root. Minimal left subarticular recess stenosis. No substantial canal stenosis. Foramina are patent. L4-L5: Disc desiccation with mild to moderate disc height loss. Prior left laminectomy. Tiny left central protrusion. No substantial canal stenosis. The right foramen is patent. Similar mild left foraminal stenosis L5-S1: Similar minimal disc bulge with unchanged right subarticular/foraminal protrusion. Disc does contact the descending right S1 nerve root. No substantial canal stenosis. Moderate right foraminal stenosis at the left foramen is patent Upper Sacrum: No focal lesion identified. Additional comments: Visualized soft tissues of the abdomen are unremarkable. MR/MR lumbar spine wo con IMPRESSION: 1. Interval increase in size of left small subarticular disc protrusion at L3-L4 which contacts but does not displace or deform the descending left L4 nerve root. 2. Stable appearance of right subarticular/foraminal protrusion L5-S1 with disc contacting the right descending S1 nerve root. Moderate right foraminal stenosis. Electronically authenticated by: SIGIFREDO HENRY Date: 06/13/2023 08:29 Dictated By: Sigifredo Henry M.D. Signed By: 06/13/2332 DD/ 8 TD/TT: Blast Furnace Keeper Helper: Procedure Note Radiology, Radiologist, - 06/13/2023 [place] [address] Magnetic Resonance Report Signed Patient: LUÍS CALHOUN#: [id number] : 1980Acct:[id number] Age/Sex: 43 / MADM Date: 06/13/23 Loc: MRI Attending Dr: MARCEL BARRERA MONEY COUNTER Ordering Physician: MARCEL BARRERA NP Date of Service: 06/13/23 Procedure(s): MR lumbar spine wo con Accession Number(s): [id number] cc: MARCEL BARRERA MONEY COUNTER; ADELITA EPPERSON [place] [address] Patient Name: LUÍS CALHOUN MRN: [facility]:[id number] date: 1980 Sex: M Assigned Patient Location: MRI Current Patient Location: MRI Accession/Order Number: [id number] Exam Date: 06/13/2023 07:38 Report Date: 06/13/2023 08:29 At the request of: MARCEL BARRERA Procedure: MR lumbar spine wo con EXAM: MR lumbar spine wo con HISTORY: Degenerative Disc Disease Lumbar M51.36 COMPARISON: MRI lumbar spine 04/20/2021. TECHNIQUE: Multiplanar multisequence MR imaging of the lumbar spine was performed without intravenous contrast. FINDINGS: Alignment: Trace retrolisthesis of L3 on L4, minimally progressed fromprior. Vertebrae: Vertebral body heights are maintained. No marrow signal abnormalities to suggest neoplasm. Conus medullaris: Conus medullaris terminates in normal position at L1.Normal signal and contour. Degenerative changes: T12-L1: No substantial canal or foraminal stenosis. L1-L2: No substantial canal or foraminal stenosis. L2-L3: No substantial canal or foraminal stenosis. L3-L4: Disc desiccation with mild disc height loss. Tiny left subarticular protrusion which contacts but does not displace or deform the descendingleft L4 nerve root. Minimal left subarticular recess stenosis. No substantialcanal stenosis. Foramina are patent. L4-L5: Disc desiccation with mild to moderate disc height loss. Prior left laminectomy. Tiny left central protrusion. No substantial canal stenosis.The right foramen is patent. Similar mild left foraminal stenosis L5-S1: Similar minimal disc bulge with unchanged rightsubarticular/foraminal protrusion. Disc does contact the descending right S1 nerve root. No substantial canal stenosis. Moderate right foraminal stenosis at the left foramen is patent Upper Sacrum: No focal lesion identified. Additional comments: Visualized soft tissues of the abdomen areunremarkable. MR/MR lumbar spine wo con IMPRESSION: 1. Interval increase in size of left small subarticular disc protrusion at L3-L4 which contacts but does not displace or deform the descending leftL4 nerve root. 2. Stable appearance of right subarticular/foraminal protrusion L5-S1 with disc contacting the right descending S1 nerve root. Moderate right foraminal stenosis. Electronically authenticated by: SIGIFREDO HENRY Date: 06/13/2023 08:29 Dictated By: Sigifredo Henry M.D. Signed By:06/13/23831 DD/ 8 TD/TT: Blast Furnace Keeper Helper: us Generic External Data Provider [facility] Final Result documented in this encounter Visit Diagnoses Not on filedocumented in this encounter Care Teams Boiler House Mechanic Relationship Specialty Start Date End Date Adelita Epperson MD [address] [place] [address] PCP - General Internal Medicine 11/06/22 Adelita Epperson MD [address] [place] [address] [place] [address] PCP - [place] [employer] 06/27/23 documented as of this encounter
--- OUTSIDE RECORDS SUMMARY | 2024-10-20 07:47 | XMS_ITS | Clinical Summary ---
Author Organization [facility] Address [address] [place] [address] Phone Care Team Providers Care Machine Folder Name Role Phone Paulino Paez MD Primary Care Provider [phone] Social History Tobacco Use Types Packs/Day Years Used Date Smoking Tobacco: Never Assessed Sex and Gender Information Value Date Recorded Sex Assigned at Not on file Legal Sex Male 8:44 PM EST Gender Identity Not on file Sexual Orientation Not on file Plan of Treatment Not on file Care Teams Machine Folder Relationship Specialty Start Date End Date Paulino Paez MD [address] [place] [phone] PCP - General 09/29/17
--- OUTSIDE RECORDS SUMMARY | 2024-10-20 07:47 | XMS_ITS | Encounter Summary ---
Author Organization [facility] Address [address] [place] [address] Care Team Providers Care Gas Reverser Name Role Phone Paulino Paez MD Primary Care Provider [phone] Encounter Details Date Type Department Care Team (Late Contact Info) Description 10/08/2024 Bamboo flowsheet [facility] [address] [facility] [address] [place] [address] Wilfrido Martinez, DPIsela [address] 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 [facility] [address] [place] [address] 06/21/2025 3:45 PM EST Office Visit [facility] [place] [address] [place] [address] Al Chi, DO [address] [facility] [place] [address] documented as of this encounter Visit Diagnoses Not on filedocumented in this encounter Care Teams Gas Reverser Relationship Specialty Start Date End Date Paulino Paez MD [address] [place] [phone] PCP - General Internal Medicine 11/06/22 documented as of this encounter
--- OUTSIDE RECORDS SUMMARY | 2024-10-20 07:47 | XMS_ITS | Clinical Summary ---
Author Organization [facility] Address [address] [place] [address] Care Team Providers Care Health Care Recruiter Name Role Phone Adelita Epperson MD Primary Care Provider [phone] Allergies No known active allergies Medications Cannabinoids (medical cannabis) Active ibuprofen 800 MG tablet Take 800 mg by mouth every 6 (six) hours if needed Active phentermine (Adipex-P) 37.5 MG tabletIndicatio ns:Obesity (BMI 30-39.9) Take 1 tablet (37.5 mg) by mouth in the morning. Take before meals. 90 tablet 5 Active ketoconazole (NIZOral) 2 % creamIndication s:Tinea pedis of both feet Apply topically Daily Apply to plantar foot and webspaces bilaterally daily 60 g 2 5 11/08/19 25 Active Active Problems Problem Noted Date Diagnosed Date Family history of early CAD 11/07/2022 Overview (11/07/2022): Father CO at age 40. Osteoarthritis of spine with radiculopathy, lumbosacral region 11/01/2022 Multilevel degenerative disc disease 11/01/2022 Conductive hearing loss of l eft ear with unrestricted hearing of right ear 01/14/2017 Resolved Problems Problem Noted Date Diagnosed Date Resolved Date Obesity (BMI 30-39.9) 02/24/20232022 Laryngopharyngeal reflux (LPR) 02/24/2023 02/24/2023 Lumbar radiculopathy 02/24/2023 023 Elevated liver enzymes 11/01/202207/10 Chronic constipation 09/12/2019 023 Lymphedema 10/08/2018 02/24/2023 Lumbosacral spondylosis without myelopathy 04/30/2016 02/24/2023 Displacement of lumbar inter vertebral disc without myelopathy 01/24/2010 02/24/2023 Encounters Date Type Department Care Team Description 10/08/2024 9:15 AM EDT Office Visit [facility] [address] [place] [address] Wilfrido Martinez DPM Ingrown toenail (Primary Dx); Tinea pedis of both feet 10/08/2024 Bamboo flowsheet [facility] [address] [place] [address] Wilfrido Martinez DPM 10/08/2024 Travel 10/07/2024 Travel 09/23/2024 Clinisync Result Encounter [facility] External Department Unsolicited Provider, Generic External Data 09/15/2024 8:00 AM EDT Office Visit [facility] [address] [place] [address] Wilfrido Martinez DPM Ingrown toenail (Primary Dx); Bilateral foot pain 09/15/2024 Bamboo flowsheet [facility] [address] [place] [address] Wilfrido Martinez DPM 09/15/2024 Travel 09/14/2024 Travel 08/25/2024 9:45 AM EDT Office Visit [facility] [address] [place] [phone] Erin Jamil, EXPORT DOCUMENTS CLERK Groin abscess (Primary Dx); Cellulitis of groin 08/25/2024 Travel 08/24/2024 Travel 08/19/2024 Telephone [facility] [address] [place] [phone] Ileana Regan LPN 08/09/2024 1:00 PM EDT Office Visit [facility] [address] [place] [address] Adelita Epperson MD Cellulitis of abdominal wall (Primary Dx); Abscess 08/09/2024 Travel from Last 3 Months Family History Medical History Relation Name Comments Diabetes Father ray Heart attack Father ray Heart disease Father ray Relation Name Status Comments Brother Alive Father ray Alive Mother Alive Son Alive Social History Tobacco Use Types Packs/Day Years Used Date Smoking Tobacco: Every Day Cigarettes 0.5 31.5 Started: 04/28/1993 Smokeless Tobacco: Never Tobacco Cessation:Ready to Q [...] 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[employer] , 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 on 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 Not on file Not on file Last Filed Vital Signs Vital Sign Reading Time Taken Comments Blood Pressure 120/70 08/25/2024 9:36 AM EDT Pulse 78 08/25/2024 9:36 AM EDT Temperature - - Respiratory Rate - - Oxygen Saturation 98% 08/25/2024 9:36 AM EDT Inhaled Oxygen Concentration - - Weight 130 kg (287 lb) 08/09/2024 1:01 PM EDT Height 188 cm (6' 2 ) 08/09/2024 1:01 PM EDT Body Mass Index 36.85 08/09/2024 1:01 PM EDT Plan of Treatment Upcoming Encounters Date Type Department Care Team (Late st Contact Info) Description 11/23/2024 9:15 AM EDT Office Visit [facility] [address] [place] [address] Wilfrido Martinez, LYNDON [address] [place] [address] 06/21/2025 3:45 PM EST Office Visit [facility] [address] [place] [address] Al Chi, DO [address] [place] [place] [address] Health Maintenance Due Date Last Done Comments Influenza Vaccine (Season Ended) 2024 Procedures Procedure Name Priority Date/Time Associated Diagnosis Comments XR LUMBAR SPINE 6V W BENDING 09/23/2024 3:46 PM EDT from Last 3 Months Results * XR LUMBAR SPINE 6V W BENDING (09/23/2024 3:46 PM EDT) Anatomical Region Laterality Modality Other 09/23/2024 3:46 PM EDT Narrative 09/23/2024 3:49 PM EDT [address] [address] XRay Report Signed Patient: LUÍS CALHOUN MR#: [id number] : 1980 Acct:[id number] Age/Sex: 44 / M ADM Date: 09/23/24 Loc: RAD Attending Dr: Margie Barry NP Ordering Physician: Margie Barry NP Date of Service: 09/23/24 Procedure(s): XR lumbar spine 6V w bending Accession Number(s): [id number] cc: Margie Barry EXPORT DOCUMENTS CLERK; ADELITA EPPERSON [address] [address] Patient Name: LUÍS CALHOUN MRN: [id number]:[id number] date: 1980 Sex: M Assigned Patient Location: RAD Current Patient Location: RAD Accession/Order Number: [id number] Exam Date: 09/23/2024 15:44 Report Date: 09/23/2024 15:46 At the request of: MARGIE BARRY NP Procedure: XR lumbar spine 6V w bending 7 views Lumbar Spinewith flexion extension HISTORY: Low back pain for one month fell downstairs COMPARISON: MRI lumbar spine 06/13/2023 POSTSURGICAL CHANGES: None BONY ALIGNMENT: Straightening. HYPERMOBILITY:No hypermobility LISTHESIS:None FRACTURE: None DEGENERATIVE CHANGES: Similar mild lower lumbar disc space narrowing. Facet degeneration. SOFT TISSUES: Unremarkable BONY MINERALIZATION:Adequate XR/XR lumbar spine 6V w bending IMPRESSION: No hypermobility. Similar lower lumbar degeneration. Impression dictated by: Pelon Salazar M.D. 09/23/2024 3:46 PM Dictation Location: [place] [address] Electronically authenticated by: [id number] Y Date: 09/23/2024 15:46 Dictated By: Pelon Salazar D.O. Signed By: 09/23/24 1549 DD/ 1546 TD/TT: Operator: Procedure Note Radiology, Radiologist, MD - 09/23/2024 [place] [address] XRay Report Signed Patient: LUÍS CALHOUNMR#: [id number] : 1980Acct:[id number] Age/Sex: 44 / MADM Date: 09/23/24 Loc: RAD Attending Dr: Margie Barry NP Ordering Physician: Margie Barry NP Date of Service: 09/23/24 Procedure(s): XR lumbar spine 6V w bending Accession Number(s): [id number] cc: Margie Barry EXPORT DOCUMENTS CLERK; ADELITA EPPERSON [place] [id number] Patient Name: LUÍS CALHOUN MRN: [id number] date: 1980 Sex: M Assigned Patient Location: RAD Current Patient Location: [facility] Accession/Order Number: [id number] Exam Date: 09/23/2024 15:44 Report Date: 09/23/2024 15:46 At the request of: MARGIE BARRY NP Procedure: XR lumbar spine 6V w bending 7 views Lumbar Spinewith flexion extension HISTORY: Low back pain for one month fell downstairs COMPARISON: MRI lumbar spine 06/13/2023 POSTSURGICAL CHANGES: None BONY ALIGNMENT: Straightening. HYPERMOBILITY:No hypermobility LISTHESIS:None FRACTURE: None DEGENERATIVE CHANGES: Similar mild lower lumbar disc space narrowing.Facet degeneration. SOFT TISSUES: Unremarkable BONY MINERALIZATION:Adequate XR/XR lumbar spine 6V w bending IMPRESSION: No hypermobility. Similar lower lumbar degeneration. Impression dictated by: Pelon Salazar M.D. 09/23/2024 3:46 PM Dictation Location: [place] [address] Electronically authenticated by: [id number] Y Date: 5:46 Dictated By: Pelon Salazar D.O. Signed By:09/23/24 1549 DD/ 1546 TD/TT: Operator: Generic External Data Provider [facility] Final Result from Last 3 Months Insurance [facility] Care Teams Health Care Recruiter Relationship Specialty Start Date End Date Adelita Epperson MD [address] [place] [address] PCP - General Internal Medicine 11/06/22
--- OUTSIDE RECORDS SUMMARY | 2024-10-20 07:47 | XMS_ITS | Encounter Summary ---
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 [facility] [address] [place] [address] 06/21/2025 3:45 PM EST Office Visit [facility] [address] [place] [address] Al Chi, DO [address] [place] [address] documented as of this encounter Visit Diagnoses Not on filedocumented in this encounter Care Teams Soloist Dancer Relationship Specialty Start Date End Date Paulino Paez MD [address] [place] [address] PCP - General Internal Medicine 11/06/22 documented as of this encounter
--- NOTE | 2024-10-20 08:08 | P.CN_ITS ---
Consult Note: HPI Data of Consult Patient: known to practice within the last 3 years Requesting Physician: Jeanette Castro NP Primary Care Provider: ADELITA EPPERSON Consult Narrative Reason for consult: f/u Narrative: Cas Calhoun a pleasant 44 year old male with longstanding low back pain secondary to lumbar spondylosis, lumbar DDD, and lumbar stenosis with NC presents for evaluation. Pt reports one fall with injury since last visit, in july he fell down four steps at home landing on his low back with increased pain since. no recent imaging. 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 currently utilzing aleve, baclofen PRN. has failed > 6 weeks of PT/pr ovider guided HEP, heat, ice, tylenol, NSAIDs. recently underwent bilateral L3-4 L4-5 MBB #1 with >80% improvement in pain and functional ability while anesthetized, preop pain up to 10/10 post op pain 2/10 cc:: CC: Jeanette Castro NP Review of Systems ROS Status of ROS 10 or more systems reviewed and unremark able except as noted in history and below [facility] Surgical History Hx of tonsillectomy ?Z90.89 - Acquired absence of other organs (ICD-10) History of tympanoplasty ?Z98.890 - Other specified postprocedural states (ICD-10) History of lumbar surgery ?Z98.890 - Other specified postprocedural states (ICD-10) Meds Home Medications and Allergies Home Medications ?Medication ?Instructions ?Recorded ?Confirmed ?Type thc gummies PO .qhs 07/03/23 History baclofen 10 mg tablet 10 mg PO .qhs 12/16/2310/11 History Allergies Allergy/AdvReac Type Severity Reaction Status Date / Time No Known Drug Allergies Allergy Verified 10/11/24 09:07 Exam Constitutional Documenting provider has reviewed patient's vital signs: yes Common normals: no apparent distress, oriented x3, healthy appearing, alert and well nourished General appearance: cooperative HENMT Common normals: normocephalic, hearing grossly normal bilaterally and moist oral mucous membranes Head and scalp: normocephalic Eye Common normals: PERRL Pupil: PERRL Neck & C-Spine Common normals: full ROM General: normal visual inspection Chest Common normals: inspection of chest normal Respiratory Common normals: normal respiratory effort, no retractions and no use of accessory muscles Back & Pelvis Lumbar spine/lower back: ROM limited, pain with ROM and straight leg raise negative bilaterally Other: strength 5/5 in BLE, sensation intact BLE bilateral positive facet loading. tenderness noted bilateral L3-5 facets Extremity Common normals: normal to inspection and full ROM Neuro Common normals: oriented x3 Sensorium/orientation: alert Psych Common normals: mental status grossly normal, thought process normal, cooperative, affect normal, speech normal and activity/motor behavior normal Speech: normal speech Thought process: normal thought process Results Additional Findings Additional findings: If on a controlled substance or opioids, I have checked an OARRS report on this patient and there are no aberrancies noted in the prescribing history.??If on a controlled substance or opioid a drug screen was completed and reviewed within the last year, and if there has not been a drug screen completed we ordered one today to monitor higher risk, state monitored pain medication use. As part of providing excellent, safe, comprehensive care, the following was completed at our patient's visit: 1. A medication reconciliation and review to ensure accurate knowledge of current/active medications, including asking our patients to inform us about any zwdo-gan-aqljigx medications or herbal remedies/nutritional supplements/alternative remedies. 2. A review to specifically ensure our patients have had annual screening for screening for depression, screening for tobacco use, and screening for unhealthy alcohol use. For concerning screenings had a discussion with the patient, provided patient education, and recommended follow-up with primary care provider when appropriate. If patient noted with a risk of falling, they received education on strength, gait, and balance training to prevent future risk of falling. Portions of this note may have been carried over from the previous visit and updated as appropriate. Please note this office utilizes paper charting in addition to the electronic medical record. A list of current medications, vitals, and PMH is available there as the clinical staff outside of myself do not have access to [employer] charting during the clinic day operations. As part of providing quality comprehensive care the current medications, vitals, and PMH were reviewed in the paper chart. Assessment and Plan Assessment and Plan (1) Lumbar spondylosis: Assessment and Plan: The patient has had over 3 months of moderate to severe low back pain with functional impairment and inadequate response to conservative care including NSAIDS (unless there are contraindication such as concurrent blood thinners), multiple oral or topical pain medications, and home exercise program/physical therapy.? Patient has completed >6 weeks of guided home exercise program and/or formal physical therapy program without relief of their symptoms.? I have reviewed the imaging of the lumbar spine and no red flags were identified.? The Oswestry Disability Index was completed, and the patient scored a 18%.? We discussed the risks and benefits of the procedure with the patient, and we are NOT planning on using sedation as outlined in the guidelines from Medicare unless there is a documented reason that sedation would be strongly recommended.?? ?The procedure will be completed with fluoroscopic guidance.? (2) Myofascial pain: (3) Lumbar stenosis with neurogenic claudication: Plan lumbar xray reviewed with pt, no acute findings bilateral L3-4 L4-5 facet medial branch block x2 for facet mediated low back pain in consideration of RFA continue current medications continue HEP as tolerated f/u after each injection
== END 2024-10-20 07:45 | disposition home or self-care (01) ==
LOC: PM 07:44
PROVIDERS: PCP Internal Medicine; Visit Provider Nurse Practitioner
DX: M47.816 Spondylosis without myelopathy or radiculopathy, lumbar region (principal); M79.18 Myalgia, other site; M48.062 Spinal stenosis, lumbar region with neurogenic claudication
CPT/HCPCS: G0463

== ENCOUNTER 2024-10-25 09:28 | Day surgery (SDC) | payer BC, SELFPAY ==
--- OUTSIDE RECORDS SUMMARY | 2024-10-25 09:30 | XMS_ITS | Encounter Summary ---
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 [place] [address] 06/21/2025 3:45 PM EST Office Visit [facility] [address] [place] [address] Al Chi, DO [address] [place] [address] documented as of this encounter [...] on filedocumented in this encounter Care Teams Cell Room Operator Relationship Specialty Start Date End Date Paulino Paez MD [address] [place] [address] PCP - General Internal Medicine 11/06/22 Paulino Paez MD [address] [place] [address] PCP - [place] [employer] 06/27/23 documented as of this encounter
--- OUTSIDE RECORDS SUMMARY | 2024-10-25 09:30 | XMS_ITS | Clinical Summary ---
Author Organization [facility] Healthcare Address [address] [place] [address] Care Team Providers Care Radiologic Technology Instructor Name Role Phone Adelita Epperson MD Primary Care Provider [phone] Allergies No known active allergies Medications Cannabinoids [...] of early CAD 11/07/2022 Overview (11/07/2022): Father AL at age 40. Osteoarthritis of spine with [...] 10/08/2024 9:15 AM EDT Office Visit [facility] [address] [place] [address] Wilfrido Martinez DPM Ingrown toenail (Primary Dx); Tinea pedis of both feet 10/08/2024 Bamboo flowsheet [facility] [address] [place] [address] Wilfrido Martinez DPM 10/08/2024 Travel 10/07/2024 Travel 09/23/2024 Clinisync Result Encounter [facility] External Department Unsolicited Provider, Generic External Data 09/15/2024 8:00 AM EDT Office Visit [facility] [address] [place] [address] Wilfrido Martinez DPM Ingrown toenail (Primary Dx); Bilateral foot pain 09/15/2024 Bamboo flowsheet [facility] [address] [place] [address] Wilfrido Martinez DPM 09/15/2024 Travel 09/14/2024 Travel 08/25/2024 9:45 AM EDT Office Visit [facility] [address] [place] [address] Erin Jamil, LACE ROLLER Groin abscess (Primary Dx); Cellulitis of groin 08/25/2024 Travel 08/24/2024 Travel 08/19/2024 Telephone [facility] [address] [place] [address] Ileana Regan LPN 08/09/2024 1:00 PM EDT Office Visit [facility] [address] [place] [address] Adelita Epperson MD Cellulitis of [...] 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 [place] [address] 06/21/2025 3:45 PM EST Office Visit [facility] [address] [place] [address] Al Chi, DO [address] [place] [address] Health Maintenance Due Date Last Done Comments Influenza Vaccine (Season Ended) 2024 Procedures Procedure Name Priority Date/Time Associated Diagnosis Comments XR LUMBAR SPINE 6V W BENDING 09/23/2024 3:46 PM EDT from Last 3 Months Results * XR LUMBAR SPINE 6V W BENDING (09/23/2024 3:46 PM EDT) Anatomical Region Laterality Modality Other 09/23/2024 3:46 PM EDT Narrative 09/23/2024 3:49 PM EDT [address] [address] XRay Report Signed Patient: LUÍS CALHOUN MR#: [id number] : 1980 Acct:[id number] Age/Sex: 44 / M ADM Date: 09/23/24 Loc: RAD Attending Dr: Margie Barry NP Ordering Physician: Margie Barry NP Date of Service: 09/23/24 Procedure(s): XR lumbar spine 6V w bending Accession Number(s): [id number] cc: Margie Barry LACE ROLLER; ADELITA EPPERSON [address] [address] Patient Name: LUÍS CALHOUN MRN: [id number] date: 1980 Sex: M Assigned Patient Location: RAD Current Patient Location: RAD Accession/Order Number: [id number] Exam Date: 09/23/2024 15:44 Report Date: 09/23/2024 [...] Salazar M.D. 09/23/2024 3:46 PM Dictation Location: [place] [address] Electronically authenticated by: [id number] Y Date: 09/23/2024 15:46 Dictated By: Pelon Salazar D.O. Signed By: 09/23/24 1549 DD/ 1546 TD/TT: Sheep Farm Worker: Procedure Note Radiology, Radiologist, MD - 09/23/2024 [place] [address] XRay Report Signed Patient: LUÍS CALHOUNMR#: [id number] : 1980Acct:[id number] Age/Sex: 44 / MADM Date: 09/23/24 Loc: RAD Attending Dr: Margie Barry NP Ordering Physician: Margie Barry NP Date of Service: 09/23/24 Procedure(s): XR lumbar spine 6V w bending Accession Number(s): [id number] cc: Margie Barry LACE ROLLER; ADELITA EPPERSON [place] [id number] Patient Name: LUÍS CALHOUN MRN: [id number] date: 1980 Sex: M Assigned Patient Location: RAD Current Patient Location: [facility] Accession/Order Number: [id number] Exam Date: 09/23/2024 15:44 Report Date: 09/23/2024 [...] Salazar M.D. 09/23/2024 3:46 PM Dictation Location: [place] [address] Electronically authenticated by: [id number] Y Date: 5:46 Dictated By: Pelon Salazar D.O. Signed By:09/23/24 1549 DD/ 1546 TD/TT: Sheep Farm Worker: Generic External Data Provider [facility] Final Result from Last 3 Months Insurance [facility] Care Teams Radiologic Technology Instructor Relationship Specialty Start Date End Date Adelita Epperson MD [address] [place] [address] PCP - General Internal Medicine 11/06/22
--- OUTSIDE RECORDS SUMMARY | 2024-10-25 09:30 | XMS_ITS | Clinical Summary ---
Author Organization [facility] Address [facility] [place] [address] Care Team Providers Care Pest Control Supervisor Name Role Phone Unavailable Primary Care [...]
--- OUTSIDE RECORDS SUMMARY | 2024-10-25 09:30 | XMS_ITS | Encounter Summary ---
Author Organization [facility] Address [address] [place] [address] Care Team Providers Care Title Checker Name Role Phone Paulino Paez MD Primary Care Provider [phone] Pcp, No CONCRETE PLACEMENT EQUIPMENT OPERATOR Primary Care Provider Unavailabl e Source Comments In the event this information is protected by the Federal Confidentiality of Alcohol and Drug AbusePatient Records regulations: The Federal rules restrict any use of the information to criminally investigate or prosecute any alcohol or drug abuse patient.[facility] Encounter Details Date Type Department Care Team (Late st Contact Info) Description 05/11/2012 Letters (in) [facility] [place] [address] [place] [address] Pedro Mcfadden MD Social History [...] May 11, 2012 RE: [facility] #:[id number] Dear Dr. Paez: Thank you for asking [...] for this referral. Sincerely, Danny Mcfadden M.D., [facility] MJM:[id number] / cc: documented in this encounter Plan of Treatment Not on file documented as of this encounter Visit Diagnoses Not on filedocumented in this encounter Care Teams Title Checker Relationship Specialty Start Date End Date Paulino Paez MD PCP - General 11/28/09 11/09/21 Teena Gray APRN PCP - General 11/10/21 05/28/22 documented as of this encounter
--- OUTSIDE RECORDS SUMMARY | 2024-10-25 09:30 | XMS_ITS | Encounter Summary ---
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 [place] [address] 06/21/2025 3:45 PM EST Office Visit [facility] [address] [place] [address] Al Chi, DO [address] [place] [address] documented as of this encounter [...] on filedocumented in this encounter Care Teams Freight Elevator Operator Relationship Specialty Start Date End Date Paulino Paez MD [address] [place] [address] PCP - General Internal Medicine 11/06/22 Paulino Paez MD [address] [place] [address] PCP - [place] [employer] 06/27/23 documented as of this encounter
--- OUTSIDE RECORDS SUMMARY | 2024-10-25 09:30 | XMS_ITS | Encounter Summary ---
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 [place] [address] 06/21/2025 3:45 PM EST Office Visit [facility] [address] [place] [address] Al Chi, DO [address] [place] [address] documented as of this encounter Procedures Procedure Name Priority Date/Time Associated Diagnosis Comments MR LUMBAR SPINE WO CON 06/13/2023 8:29 AM EST documented in this encounter Results * MR LUMBAR SPINE WO CON (06/13/2023 8:29 AM EST) Anatomical Region Laterality Modality Other 06/13/2023 8:29 AM EST Narrative 06/13/2023 8:32 [place] [address] Magnetic Resonance Report Signed Patient: LUÍS CALHOUN MR#: [id number] : 1980 Acct:[id number] Age/Sex: 43 / M ADM Date: 06/13/23 Loc: MRI Attending Dr: MARCEL BARRERA CHANNELING MACHINE RUNNER Ordering Physician: MARCEL BARRERA NP Date of Service: 06/13/23 Procedure(s): MR lumbar spine wo con Accession Number(s): [id number] cc: MARCEL BARRERA CHANNELING MACHINE RUNNER; ADELITA EPPERSON [address] [address] Patient Name: LUÍS CALHOUN MRN: [id number] date: 1980 Sex: M Assigned Patient Location: MRI Current Patient Location: MRI Accession/Order Number: [id number] Exam Date: 06/13/2023 07:38 Report Date: 06/13/2023 [...] M.D. Signed By: 06/13/2332 DD/ 8 TD/TT: Climatologist: Procedure Note Radiology, Radiologist, - 06/13/2023 [place] [address] Magnetic Resonance Report Signed Patient: LUÍS CALHOUN#: [id number] : 1980Acct:[id number] Age/Sex: 43 / MADM Date: 06/13/23 Loc: MRI Attending Dr: MARCEL BARRERA CHANNELING MACHINE RUNNER Ordering Physician: MARCEL BARRERA NP Date of Service: 06/13/23 Procedure(s): MR lumbar spine wo con Accession Number(s): [id number] cc: MARCEL BARRERA CHANNELING MACHINE RUNNER; ADELITA EPPERSON [place] [address] Patient Name: LUÍS CALHOUN MRN: [facility]:[id number] date: 1980 Sex: M Assigned Patient Location: MRI Current Patient Location: MRI Accession/Order Number: [id number] Exam Date: 06/13/2023 07:38 Report Date: 06/13/2023 [...] Henry M.D. Signed By:06/13/23831 DD/ 8 TD/TT: Climatologist: us Generic External Data Provider [facility] Final Result documented in this encounter Visit Diagnoses Not on filedocumented in this encounter Care Teams Installations Inspector Relationship Specialty Start Date End Date Adelita Epperson MD [address] [place] [address] PCP - General Internal Medicine 11/06/22 Adelita Epperson MD [address] [place] [address] [place] [address] PCP - [place] [employer] 06/27/23 documented as of this encounter
--- OUTSIDE RECORDS SUMMARY | 2024-10-25 09:30 | XMS_ITS | Clinical Summary ---
Author Organization [facility] Address [address] [place] [address] Phone Care Team Providers Care Sewer Line Photo Inspector Name Role Phone Paulino Paez MD Primary Care Provider [phone] Social History Tobacco Use Types Packs/Day Years Used Date Smoking Tobacco: Never Assessed Sex and Gender Information Value Date Recorded Sex Assigned at Not on file Legal Sex Male 8:44 PM EST Gender Identity Not on file Sexual Orientation Not on file Plan of Treatment Not on file Care Teams Sewer Line Photo Inspector Relationship Specialty Start Date End Date Paulino Paez MD [address] [place] [address] PCP - General 09/29/17
--- OUTSIDE RECORDS SUMMARY | 2024-10-25 09:30 | XMS_ITS | Encounter Summary ---
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 [place] [address] 06/21/2025 3:45 PM EST Office Visit [facility] [address] [place] [address] Al Chi, DO [address] [place] [address] documented as of this encounter Visit Diagnoses Not on filedocumented in this encounter Care Teams Pinion Polisher Relationship Specialty Start Date End Date Paulino Paez MD [address] [place] [address] PCP - General Internal Medicine 11/06/22 Paulino Paez MD [address] [place] [address] PCP - Israel Adan 06/27/23 documented as of this encounter
--- OUTSIDE RECORDS SUMMARY | 2024-10-25 09:30 | XMS_ITS | Clinical Summary ---
Author Organization [facility] Address [address] [place] [address] Care Team Providers Care Sewer Pipe Layer Name Role Phone Paulino Paez MD Primary Care Provider [phone] Allergies No known active allergies Medications naproxen [...] Treatment Not on file Care Teams Sewer Pipe Layer Relationship Specialty Start Date End Date Paulino Paez MD PCP - General 06/30/17
[2024-10-25 10:03] VITALS: BP 151/102; PULSE 75; TEMP 36.6; O2SAT 97
[2024-10-25 10:42] VITALS: PULSE 70; O2SAT 100
[2024-10-25 10:43] VITALS: BP 173/105; PULSE 70; O2SAT 100
[2024-10-25 10:46] VITALS: BP 174/100
[2024-10-25] MEDS: BUPIVACAINE HCL 0.25% PF 25 MG/10 ML VIAL 8 ML INJ (10:46)
[2024-10-25] MEDS: LIDOCAINE HCL 2% 400 MG/20 ML MDV INJ (10:46)
--- NOTE | 2024-10-25 10:51 | W.PM.PROCNOT ---
Date of procedure: 10/25/24 Pre-op diagnosis: Pain due to lumbar spondylosis without myelopathy Post-op diagnosis: same as pre-op Procedure: Procedure: Bilateral L3-4, L4-5 medial branch block Medications: Bupivacaine 0.25% 6cc The patient was seen and examined in the preoperative holding area.? An informed consent was obtained and placed on the chart.? The patient was brought to the medical procedure unit and placed in the prone position.? A timeout was completed verifying correct patient, procedure site, positioning, plan, and special equipment.? Using aseptic technique, the needle was placed at left L3. Under direct fluoroscopic visualization a Quincke-tipped spinal needle was advanced to the junction of the superior articulating process with the transverse process at the designated medial branch segment.? Preceded by negative aspiration, the above-mentioned injectate was placed in 1 mL aliquots.? The procedure was repeated at left l4, 5.? The needle was removed and insertion site was covered. The same procedure, at the same levels, was completed on the right side. The patient was taken to the postprocedural recovery area and monitored for an appropriate length of time before found suitable for discharge in the company of a responsible adult. Anesthesia: Local Surgeon: Laura Luevano Pathology: none sent Condition: stable Disposition: no change
== END 2024-10-25 10:52 | disposition home or self-care (01) ==
PROVIDERS: PCP Internal Medicine; Visit Provider Anesthesiology
DX: M47.816 Spondylosis without myelopathy or radiculopathy, lumbar region (principal); M54.50 Low back pain, unspecified
CPT/HCPCS: 64493; 64494; J0665

== ENCOUNTER 2024-11-03 08:02 | Outpatient (OUT) | payer BC, SELFPAY ==
--- NOTE | 2024-11-03 08:14 | PM.CN ---
Consult Note: HPI Data of Consult Patient: known to practice within the last 3 years Consult date: 11/03/24 Requesting Physician: Jeanette Castro NP Primary Care Provider: ADELITA EPPERSON Consult Narrative Reason for consult: f/u Narrative: Cas Calhoun a pleasant 44 year old male with longstanding low back pain secondary to lumbar spondylosis, lumbar DDD, and lumbar stenosis with NC presents for evaluation. Pt reports one fall with injury since last visit, in july he fell down four steps at home landing on his low back with increased pain since. lumbar xray consistent with multilevel degenerative changes. 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 currently utilzing aleve, baclofen PRN. has failed > 6 weeks of PT/provider guided HEP, heat, ice, tylenol, NSAIDs. recently underwent bilateral L3-4 L4-5 MBB #1 and #2 with >80% improvement in pain and functional ability while anesthetized, preop pain up to 10/10 post op pain 2/10 cc:: CC: Jeanette Castro NP Review of Systems ROS Status of ROS 10 or more systems reviewed and unremarkable except as noted in history and below PFSH PFSH Surgical History Hx of tonsillectomy ?Z90.89 - Acquired absence of other organs (ICD-10) History of tympanoplasty ?Z98.890 - Other specified postprocedural states (ICD-10) History of lumbar surgery ?Z98.890 - Other specified postprocedural states (ICD-10) Meds Home Medications and Allergies Home Medications ?Medication ?Instructions ?Recorded ?Confirmed ?Type thc gummies PO .qhs 07/03/23 History baclofen 10 mg tablet 10 mg PO .qhs 12/16/23 10/25/24 History Allergies Allergy/AdvReac Type Severity Reaction Status Date / Time No Known Drug Allergies Allergy Verified 10/25/24 10:01 Exam Constitutional Documenting provider has reviewed patient's vital signs: yes Common normals: no apparent distress, oriented x3, healthy appearing, alert and well nourished General appearance: cooperative HENMT Common normals: normocephalic, hearing grossly normal bilaterally and moist oral mucous membranes Head and scalp: normocephalic Eye Common normals: PERRL Pupil: PERRL Neck & C-Spine Common normals: full ROM General: normal visual inspection Chest Common normals: inspection of chest normal Respiratory Common normals: normal respiratory effort, no retractions and no use of accessory muscles Back & Pelvis Lumbar spine/lower back: ROM limited, pain with ROM and straight leg raise negative bilaterally Other: strength 5/5 in BLE, sensation intact BLE bilateral positive facet loading. tenderness noted bilateral L3-5 facets Extremity Common normals: normal to inspection and full ROM Neuro Common normals: oriented x3 Sensorium/orientation: alert Psych Common normals: mental status grossly normal, thought process normal, cooperative, affect normal, speech normal and activity/motor behavior normal Speech: normal speech Thought process: normal thought process Results Additional Findings Additional findings: If on a controlled substance or opioids, I have checked an [place] report on this patient and there are no aberrancies noted in the prescribing history.??If on a controlled substance or opioid a drug screen was completed and reviewed within the last year, and if there has not been a drug screen completed we ordered one today to monitor higher risk, state monitored pain medication use. As part of providing excellent, safe, comprehensive care, the following was completed at our patient's visit: 1. A medication reconciliation and review to ensure accurate knowledge of current/active medications, including asking our patients to inform us about any snuw-zdb-fezwyar medications or herbal remedies/nutritional supplements/alternative remedies. 2. A review to specifically ensure our patients have had annual screening for screening for depression, screening for tobacco use, and screening for unhealthy alcohol use. For concerning screenings had a discussion with the patient, provided patient education, and recommended follow-up with primary care provider when appropriate. If patient noted with a risk of falling, they received education on strength, gait, and balance training to prevent future risk of falling. Portions of this note may have been carried over from the previous visit and updated as appropriate. Please note this office utilizes paper charting in addition to the electronic medical record. A list of current medications, vitals, and PMH is available there as the clinical staff outside of myself do not have access to [employer] charting during the clinic day operations. As part of providing quality comprehensive care the current medications, vitals, and PMH were reviewed in the paper chart. Assessment and Plan Assessment and Plan (1) Lumbar spondylosis: Assessment and Plan: The patient has had over 3 months of moderate to severe low back pain with functional impairment and inadequate response to conservative care including NSAIDS (unless there are contraindication such as concurrent blood thinners), multiple oral or topical pain medications, and home exercise program/physical therapy.? Patient has completed >6 weeks of guided home exercise program and/or formal physical therapy program without relief of their symptoms.? I have reviewed the imaging of the lumbar spine and no red flags were identified.? The Oswestry Disability Index was completed, and the patient scored a 2%.? We discussed the risks and benefits of the procedure with the patient, and we are NOT planning on using sedation as outlined in the guidelines from Medicare unless there is a documented reason that sedation would be strongly recommended.?? ?The procedure will be completed with fluoroscopic guidance.? (2) Myofascial pain: (3) Lumbar stenosis with neurogenic claudication: Plan bilateral L3-4 L4-5 facet medial branch RFA continue current medications continue HEP as tolerated f/u 1 month after RFA complete
== END 2024-11-03 08:03 | disposition home or self-care (01) ==
LOC: PM 08:02
PROVIDERS: PCP Internal Medicine; Visit Provider Nurse Practitioner
DX: M47.816 Spondylosis without myelopathy or radiculopathy, lumbar region (principal); M79.18 Myalgia, other site; M48.062 Spinal stenosis, lumbar region with neurogenic claudication
CPT/HCPCS: G0463

== ENCOUNTER 2024-11-15 09:12 | Day surgery (SDC) | payer BC, SELFPAY ==
[2024-11-15 09:43] VITALS: BP 167/114; PULSE 79; TEMP 36.4; O2SAT 100
[2024-11-15 10:24] VITALS: BP 151/91; PULSE 78; O2SAT 100
[2024-11-15 10:25] VITALS: BP 146/84; PULSE 78; O2SAT 98
--- NOTE | 2024-11-15 10:35 | P.ON_ITS ---
Date of procedure: 11/15/24 Pre-op diagnosis: Pain due to lumbar spondylosis without myelopathy Post-op diagnosis: same as pre-op Procedure: Procedure: Bilateral L3-4, L4-5 radiofrequency ablation Medications: Bupivacaine 0.25% 4cc, depomedrol 80mg, lidocaine 2% 6cc The patient was seen and examined in the preoperative holding area.? The site was marked.? Written informed consent was obtained and placed on the chart.? The patient was brought to the medical procedure unit and placed in the prone position.? A timeout was completed verifying correct patient, procedure, positioning, and special requirements.? The skin overlying the target points, the designated medial branch, were prepped and draped in the usual sterile fashion.? The target point was achieved with a 20-gauge 15 cm with a 10 mm curved active tip radiofrequency cannula under direct fluoroscopic visualizatio n.? The needle was inserted at level L3 on the right side. Needle tip position was confirmed with lateral fluoroscopic position.? Motor stimulation was carried out at 2 Hz up to 5 volts with the absence of extremity activity.? This was repeated at level L4, 5 on right side.?? Sensory stimulation was carried out.? Concordant pain was realized at the above- mentioned sites.? Then radiofrequency lesioning was carried out times 90 seconds at 80 degrees times 2 lesions at each level.? The radiofrequency probe was removed prior to cannula removal.? The above-mentioned injectate was placed in 1 mL increments.? The needle was removed. The same procedure, with the same steps, was then completed on the left side at the same levels. Insertion sites were covered.? The patient was taken to the postoperative recovery area and monitored for an appropriate length of time before being found suitable for discharge in the company of a responsible adult. Anesthesia: Local Surgeon: Laura Luevano Pathology: none sent Condition: stable Disposition: no change
[2024-11-15] MEDS: LIDOCAINE HCL 2% 400 MG/20 ML MDV 8 ML INJ (10:36)
[2024-11-15] MEDS: BUPIVACAINE HCL 0.25% PF 25 MG/10 ML VIAL 4 ML INJ (10:36)
[2024-11-15] MEDS: METHYLPREDNISOLONE ACETATE 40 MG/ML VIAL 80 MG INJ (10:37)
== END 2024-11-15 10:42 | disposition home or self-care (01) ==
PROVIDERS: PCP Internal Medicine; Visit Provider Anesthesiology
DX: M47.816 Spondylosis without myelopathy or radiculopathy, lumbar region (principal)
CPT/HCPCS: 64635; 64636; J0665; J1010

== ENCOUNTER 2024-12-15 08:21 | Outpatient (OUT) | payer BC, SELFPAY ==
--- OUTSIDE RECORDS SUMMARY | 2024-12-15 08:26 | XMS_ITS | CCD ---
Author Organization [facility] CliniSyin Care Team Providers Care 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 Name Role Phone Jennifer Muller Unavailable Unavailable Juan Francisco, Maroun Tanus Unavailable Unavailable Adelita Epperson Unavailable Unavailable Juan Francisco, Maroun Tanus Unavailable Unavailable Pelon Head Unavailable Unavail able Adelita Epperson Unavailable Unavailable Juan Francisco, Maroun Tanus Unavailable Unavailable Juan Francisco, Maroun Tanus Unavailable Unavailable Adelita Epperson Unavailable Unavailable ADELITA EPPERSON Primary Care Unavailable Adelita Epperson Primary Care Provider [phone] Adelita Epperson Primary Care Provider [phone] Dereck Morrow Attending Provider [phone] LAKSHMIPATHY ., NARENDRANATH Attending Mell vailable LAKSHMIPATHY ., NARENDRANATH Admitting Mell vailable JOSE ROBERTO NGUYEN Consulting Unavailable ZHOU, DR UREÑA Primary Care Unavailable HUMAIRA LAO Unavailable LAKSHMIPATHY ., NARENDRANATH Consulting Mell vailable DR ADELITA EPPERSON Consulting Unavailable ZHOU, DR UREÑA Primary Care Unavailable LAKSHMIPATHY ., NARENDRANATH Admitting [...] MEGHAN ., DR BERNARDO Tate Admitting Unavailable EMGHAN ., DR BERNARDO Tate Attending Unavailable ZHOU, DR UREÑA Primary Care Unavailable ZHOU, DR UREÑA Consulting Unavailable Adelita Epperson MD Primary Care Provider Manjinder Lynn Jr Attending Unavailable Manjinder Lynn Jr Admitting Unavailable Adelita Epperson Primary Care Unavailable MD Adelita Epperson Primary Care Provider [phone] DO Manjinder Lynn Jr Attending Provider [phone] Adelita Epperson MD Unavailable AL MARIN Attending Unavailable ADELITA EPPERSON Attending Unavailable ADELITA EPPERSON Attending Unavailable TIFFANIE, WILFRIDO Attending Unavailtravis MORENO, WILFRIDO Attending Unavailtravis MORENO, WILFRIDO Attending UnavailAL Baxter Attending Unavailable ANTONIO SOLOMON Attending Unavailable ADELITA EPPERSON Referring Unavailable ADELITA EPPERSON Attending Unavailable RISALIERIN FENG Attending Unavailable Chloé CID, Laura Gutierrez Attending Unavailable Gijaxson CID, Laura Gutierrez Attending Unavailable Girekhaitis , Andnichol Gutierrez Attending Unavailable Gijaxson CID, Andrius Gutierrez Attending Unavailable Gijaxson CID, Andrius Gutierrez Attending Unavailable Gijaxson CID, Andrius Gutierrez Attending Unavailable Unavailable Unavailable Unavailable Medications [...] sources) Palpitations; Translations: [Palpitations] 04-05-2024 Episodic Mycoses (4 sources) Tinea pedis; Translations: [Tinea pedis] 10-08-2024 Episodic Other aftercare (2 sources) Patient encounter 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; 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] 04-05-2024 Episodic Other connective [...] SPINE 6V W BENDING on 09-23-[address] [address] XRay Report Signed Patient: CAS CALHOUN MR#: [id number] : 1980 Acct:[id number] Age/Sex: 44 / M ADM Date: 09/23/24 Loc: RAD Attending Dr: Jeanette Castro NP Ordering Physician: Jeanette Castro NP Date of Service: 09/23/24 Procedure(s): XR lumbar spine 6V w bending Accession Number(s): [id number] cc: Jeanette Castro NP; ADELITA EPPERSON [place] [id number] Patient Name: CAS CALHOUN MRN: [facility]:[id number] date: 1980 Sex: M Assigned Patient Location: RAD Current Patient Location: RAD Accession/Order Number: [id number] Exam Date: 09/23/2024 15:44 Report Date: 09/23/2024 15:46 At the request of: EJANETTE CASTRO NP Procedure: XR lumbar spine 6V [...] Salazar M.D. 09/23/2024 3:46 PM Dictation Location: [place] [address] Electronically authenticated by: [id number] Y Date: 09/23/2024 15:46 Dictated By: Pelon Salazar D.O. Signed By: 09/23/24 1549 DD/ 1546 TD/TT: Radio Talk Show Host: [facility] Radiology, Radiologist, MD - 09/23/2024 [place] [address] XRay Report Signed Patient: CAS CALHOUN MR#: [id number] : 1980 Acct:[id number] Age/Sex: 44 / M ADM Date: 09/23/24 Loc: RAD Attending Dr: Jeanette Castro NP Ordering Physician: Jeanette Castro NP Date of Service: 09/23/24 Procedure(s): XR lumbar spine 6V w bending Accession Number(s): [id number] cc: Jeanette Castro NP; ADELITA EPPERSON [place] [id number] Patient Name: CAS CALHOUN MRN: [id number] date: 1980 Sex: M Assigned Patient Location: RAD Current Patient Location: RAD Accession/Order Number: [id number] Exam Date: 09/23/2024 15:44 Report Date: 09/23/2024 [...] Salazar M.D. 09/23/2024 3:46 PM Dictation Location: [place] [address] Electronically authenticated by: [id number] Y Date: 09/23/2024 15:46 Dictated By: Pelon Salazar D.O. Signed By: 09/23/24 1549 DD/ 1546 TD/TT: Radio Talk Show Host: [facility] Radiology Study observation (narrative) [facility] XR LUMBAR SPINE 6V W BENDING Ordered By: Radiologist Radiology on 09-23-2024 [place] [employer] Work Phone: Alanine aminotransferase [En zymatic activity/volume] in Serum or PlasmaOrdered By: Manjinder Lynn on 09-03-2023 ALT [Catalytic activity/Vol] 29 U/L [facility] Albumin [Mass/volume] in Ser um or Plasma by Bromocresol green (BCG) dye binding methoOrdered By: Manjinder Lynn on 09-03-2023 Albumin BCG dye [Mass/Vol] 4.6 g/dL 3.5-5.7 [facility] Alkaline phosphatase [Enzyma tic activity/volume] in Serum or PlasmaOrdered By: Manjinder Lynn on 09-03-2023 ALP [Catalytic activity/Vol] 75 U/L 34-104 [facility] Aspartate aminotransferase [ Enzymatic activity/volume] in Serum or PlasmaOrdered By: Manjinder Lynn on 09-03-2023 AST [Catalytic activity/Vol] 20 U/L 13-39 [facility] Basophils Auto (Bld) [#/Vol] Ordered By: Manjinder Lynn on 09-03-2023 Basophils (Bld) [#/Vol] 0.1 10*3/uL 0.0-0.2 [facility] Basophils/100 WBC Auto (Bld) Ordered By: Manjinder Lynn on 09-03-2023 Basophils/100 WBC (Bld) 1.1 % . F [facility] Bilirubin.total [Mass/volume ] in Serum or PlasmaOrdered By: Manjinder Lynn on 09-03-2023 Bilirubin [Mass/Vol] 1.3 mg/dL 0.3-1.0 [facility] Comment on above: Samples from patient s who have taken Naproxen have shown spurious elevation in Total Bilirubin levels. A metabolite of Naproxen, O-desmethylnaproxen, has been shown to interfere with the Tracy-María method for measuring Total Bilirubin. Calcium [Mass/volume] in Ser um or PlasmaOrdered By: Manjinder Lynn on 09-03-2023 Calcium [Mass/Vol] 9.5 mg/dL 8.6-10.3 [facility] Carbon dioxide, total [Moles /volume] in Serum or PlasmaOrdered By: Manjinder Lynn on 09-03-2023 CO2 [Moles/Vol] 27.6 mmol/L 21.0-31.0 [facility] Chloride [Moles/volume] in S cheryl or PlasmaOrdered By: Manjinder Lynn on 09-03-2023 Chloride [Moles/Vol] 103 mmol/L 98-107 [facility] Complete Blood Count no refl exon 09-03-2023 Basophils (Bld) [#/Vol] 0.1 10*3/uL Normal 0.0-0.2 [facility] Comment on above: Result Comment: PERF ORMED BY: [place] [address] PATHOLOGIST MEAL COOKER JOÃO YATES M.D. Performed By: #### C MP, [facility] CBC #### [place] [address] [place] Basophils/100 WBC (Bld) 1.1 % Normal . T [facility] Comment on above: Performed By: #### C MP, [facility] CBC #### [place] [address] [place] Eosinophils (Bld) [#/Vol] 0.4 10*3/uL Normal 0.0-0.45 [facility] Comment on above: Performed By: #### C MP, [facility] CBC #### [place] [address] [place] Eosinophils/100 WBC (Bld) 4.9 % Normal . [facility] Comment on above: Performed By: #### C MP, [facility] CBC #### [place] [address] [place] Erythrocyte distribution width (RBC) [Ratio] 13.4 % Normal 12.0-14.[address] [facility] Comment on above: Performed By: #### C MP, [facility] CBC #### [address] Hematocrit (Bld) [Volume fraction] 43.4 % Normal 38.8-50.0 [facility] Comment on above: Performed By: #### C MP, [facility] CBC #### [place] [address] [place] Hemoglobin (Bld) [Mass/Vol] 15.1 g/dL Normal 13.0-17.0 [facility] Comment on above: Performed By: #### C MP, [facility] CBC #### [place] [address] [place] Lymphocytes (Bld) [#/Vol] 3.5 10*3/uL Normal 1.00-4.8 [facility] Comment on above: Performed By: #### C MP, [facility] CBC #### [facility] [address] Lymphocytes/100 WBC (Bld) 38.0 % Normal . [facility] Comment on above: Performed By: #### C MP, [facility] CBC #### [facility] [address] MCH (RBC) [Entitic mass] 30.6 pg Normal 27.5-35.2 [facility] Comment on above: Performed By: #### C MP, [facility] CBC #### [facility] [address] MCV (RBC) [Entitic vol] 88.2 fL Normal 83.5-101 T [facility] Comment on above: Performed By: #### C MP, [facility] CBC #### [facility] [address] Mean Corpuscular HGB Conc 34.7 g/dL Normal 32.5-35.6 [facility] Comment on above: Performed By: #### C MP, [facility] CBC #### [facility] [address] [place] [address] [place] Monocytes (Bld) [#/Vol] 0.7 10*3/uL Normal 0.0-0.8 [facility] Comment on above: Performed By: #### C MP, [facility] CBC #### [facility] [address] [place] [address] [place] Monocytes/100 WBC (Bld) 7.1 % Normal . T [facility] Comment on above: Performed By: #### C MP, [facility] CBC #### [facility] [address] [place] [id number] [place] Neutrophils (Bld) [#/Vol] 4.5 10*3/uL Normal 1.8-7.7 [facility] Comment on above: Performed By: #### C MP, [facility] CBC #### [facility] [address] [place] [id number] [place] Neutrophils/100 WBC (Bld) 48.9 % Normal . [facility] Comment on above: Performed By: #### C LIANA, [facility] CBC #### [address] NRBC% 0.2 /100{WBC} Normal 0-0.5 The [facility] Comment on above: Performed By: #### C LIANA, [facility] CBC #### [address] Platelet mean volume (Bld) [Entitic vol] 9.6 fL Normal 6.6-10.[address] [facility] Comment on above: Performed By: #### C LINAA, [facility] CBC #### [address] Platelets (Bld) [#/Vol] 230 10*3/uL Normal 150-450 [facility] Comment on above: Performed By: #### C LIANA, [facility] CBC #### [address] RBC (Bld) [#/Vol] 4.92 10*6/uL Normal 3.90-5.60 The [facility] Comment on above: Performed By: #### C LIANA, [facility] CBC #### [address] WBC (Bld) [#/Vol] 9.2 10*3/uL Normal 4.1-10.5 The [facility] Comment on above: Performed By: #### C LIANA, [facility] CBC #### [address] Comprehensive Metabolic Pane serafin 09-03-2023 Albumin [Mass/Vol] 4.6 g/dL Normal 3.5-5.7 [facility] Comment on above: Performed By: #### C LIANA, [facility] CBC #### [address] Albumin/Globulin [Mass ratio] 2.1 {ratio} Normal [facility] Comment on above: Performed By: #### C LIANA, [facility] CBC #### [address] ALP [Catalytic activity/Vol] 75 U/L Normal 34-104 [facility] Comment on above: Result Comment: PERF ORMED BY: [place] [address] PATHOLOGIST MEAL COOKER JOÃO YATES M.D. Performed By: #### C MP, [facility] CBC #### [address] ALT [Catalytic activity/Vol] 29 U/L Normal 7-52 [facility] Comment on above: Performed By: #### C MP, [facility] CBC #### [address] Anion gap [Moles/Vol] 11.4 mmol/L Normal 6.0-15.0 Th e [facility] Comment on above: Performed By: #### C MP, [facility] CBC #### [address] AST [Catalytic activity/Vol] 20 U/L Normal 13-39 [facility] Comment on above: Performed By: #### C MP, [facility] CBC #### [place] [address] [place] Bilirubin [Mass/Vol] 1.3 mg/dL High 0.3-1.0 [facility] Comment on above: Result Comment: Samp les from patients who have taken Naproxen have shown spurious elevation in Total Bilirubin levels. A metabolite of Naproxen, O-desmethylnaproxen, has been shown to interfere with the Jendrassik-Grof method for measuring Total Bilirubin. Performed By: #### C MP, [facility] CBC #### [place] [address] [place] Calcium [Mass/Vol] 9.5 mg/dL Normal 8.6-10.3 [facility] Comment on above: Performed By: #### C MP, [facility] CBC #### [place] [address] [place] Chloride [Moles/Vol] 103 mmol/L Normal 98-107 [facility] Comment on above: Performed By: #### C MP, [facility] CBC #### [facility] [address] CO2 [Moles/Vol] 27.6 mmol/L Normal 21.0-31.0 The [facility] Comment on above: Performed By: #### C LIANA, [facility] CBC #### [facility] [address] Creatinine [Mass/Vol] 1.22 mg/dL Normal 0.70-1.30 [facility] Comment on above: Performed By: #### C LIANA, [facility] CBC #### [place] [address] [place] GFR/1.73 sq M.predicted MDRD (S/P/Bld) [Vol rate/Area] mL/min/{1.73_m2} Normal [facility] Comment on above: Performed By: #### C LIANA, [facility] CBC #### [address] Globulin (S) [Mass/Vol] 2.2 g/dL Normal T he [facility] Comment on above: Performed By: #### C LIANA, [facility] CBC #### [address] Glucose [Mass/Vol] 117 mg/dL High 70-100 [facility] Comment on above: Result Comment: [place] Glucose Reference Range is dependent on time and content of last meal. Glucose of more than 200 mg/dL in a nonstressed, ambulatory subject supports the diagnosis of Diabetes Mellitus. ADA recommended reference range Performed By: #### C LIANA, [facility] CBC #### [place] [address] [place] Potassium [Moles/Vol] 4.0 mmol/L Normal 3.5-5.1 [facility] Comment on above: Performed By: #### C LIANA, [facility] CBC #### [address] Protein [Mass/Vol] 6.8 g/dL Normal 6.4-8.9 [facility] Comment on above: Performed By: #### C LIANA, [facility] CBC #### [address] [place] [address] [place] Sodium [Moles/Vol] 138 mmol/L Normal 136-145 [facility] Comment on above: Performed By: #### C MP, [facility] CBC #### [facility] [address] Urea nitrogen [Mass/Vol] 11 mg/dL Normal 7-25 [facility] Comment on above: Performed By: #### C MP, [facility] CBC #### [facility] [address] Creatinine [Mass/volume] in Serum or PlasmaOrdered By: Manjinder Lynn on 09-03-2023 Creatinine [Mass/Vol] 1.22 mg/dL 0.70-1.30 [facility] Eosinophils Auto (Bld) [#/Vo l]Ordered By: Manjinder Lynn on 09-03-2023 Eosinophils (Bld) [#/Vol] 0.4 10*3/uL 0.0-0.45 [facility] Eosinophils/100 WBC Auto (Bl d)Ordered By: Manjinder Lynn on 09-03-2023 Eosinophils/100 WBC (Bld) 4.9 % . [facility] Erythrocyte distribution wid th Auto (RBC) [Ratio]Ordered By: Manjinder Lynn on 09-03-2023 Erythrocyte distribution width (RBC) [Ratio] 13.4 % 12.0-14.8 [facility] Globulin Calc (S) [Mass/Vol] Ordered By: Manjinder Lynn on 09-03-2023 Globulin (S) [Mass/Vol] 2.2 g/dL [facility] Glucose [Mass/volume] in Ser um or PlasmaOrdered By: Manjinder Lynn on 09-03-2023 Glucose [Mass/Vol] 117 mg/dL 70-100 [facility] Comment on above: ADA recommended refe rence rangeRandom Glucose Reference Range is dependent on time and content of last meal. Glucose of more than 200 mg/dL in a nonstressed, ambulatory subject supports the diagnosis of Diabetes Mellitus. Hematocrit Auto (Bld) [Volum e fraction]Ordered By: Manjinder Lynn on 09-03-2023 Hematocrit (Bld) [Volume fraction] 43.4 % 38.8-50.0 [facility] Hemoglobin [Mass/volume] in BloodOrdered By: Manjinder Lynn on 09-03-2023 Hemoglobin (Bld) [Mass/Vol] 15.1 g/dL 13.0-17.0 [facility] Leukocytes [#/volume] correc padma for nucleated erythrocytes in Blood by Automated counOrdered By: Manjinder Lynn on 09-03-2023 WBC corrected for nucl RBC Auto (Bld) [#/Vol] 9.2 10*3/uL 4.1-10.5 [facility] Lymphocytes Auto (Bld) [#/Vo l]Ordered By: Manjinder Lynn on 09-03-2023 Lymphocytes (Bld) [#/Vol] 3.5 10*3/uL 1.00-4.8 [facility] Lymphocytes/100 WBC Auto (Bl d)Ordered By: Manjinder Lynn on 09-03-2023 Lymphocytes/100 WBC (Bld) 38.0 % . [facility] MCH Auto (RBC) [Entitic mass ]Ordered By: Manjinder Lynn on 09-03-2023 MCH (RBC) [Entitic mass] 30.6 pg 27.5-35.2 [facility] MCHC Auto (RBC) [Mass/Vol]Or dered By: Manjinder Lynn on 09-03-2023 MCHC (RBC) [Mass/Vol] 34.7 g/dL 32.5-35.6 [facility]ir [facility] MCV Auto (RBC) [Entitic vol] Ordered By: Manjinder Lynn on 09-03-2023 MCV (RBC) [Entitic vol] 88.2 fL 83.5-101 F [facility] Monocytes Auto (Bld) [#/Vol] Ordered By: Manjinder Lynn on 09-03-2023 Monocytes (Bld) [#/Vol] 0.7 10*3/uL 0.0-0.8 [facility] Monocytes/100 WBC Auto (Bld) Ordered By: Manjinder Lynn on 09-03-2023 Monocytes/100 WBC (Bld) 7.1 % . F [facility] Neutrophils Auto (Bld) [#/Vo l]Ordered By: Manjinder Lynn on 09-03-2023 Neutrophils (Bld) [#/Vol] 4.5 10*3/uL 1.8-7.7 [facility] Neutrophils/100 WBC Auto (Bl d)Ordered By: Manjinder Lynn on 09-03-2023 Neutrophils/100 WBC (Bld) 48.9 % . [facility] No Panel InformationOrdered By: Manjinder Lynn on 09-03-2023 Estimated GFR (CKD-EPI) > 60.0 mL/Min [facility] Creatinine Clearance (Chem N/A [facility] Nucleated erythrocytes [Pres ence] in Blood by Automated countOrdered By: Manjinder Lynn on 09-03-2023 Nucleated RBC Auto Ql (Bld) 0.2 /100{WBC} 0-0.5 [facility] Platelet mean volume Auto (B ld) [Entitic vol]Ordered By: Manjinder Lynn on 09-03-2023 Platelet mean volume (Bld) [Entitic vol] 9.6 fL 6.6-10.1 [facility] Platelets Auto (Bld) [#/Vol] Ordered By: Manjinder Lynn on 09-03-2023 Platelets (Bld) [#/Vol] 230 10*3/uL 150-450 [facility] Potassium [Moles/volume] in Serum or PlasmaOrdered By: Manjinder Lynn on 09-03-2023 Potassium [Moles/Vol] 4.0 mmol/L 3.5-5.1 [facility] Protein [Mass/volume] in Ser um or PlasmaOrdered By: Manjinder Lynn on 09-03-2023 Protein [Mass/Vol] 6.8 g/dL 6.4-8.9 [facility] RBC Auto (Bld) [#/Vol]Ordere d By: Manjinder Lynn on 09-03-2023 RBC (Bld) [#/Vol] 4.92 10*6/uL 3.90-5.60 [facility] Serum or plasma albumin/glob ulin mass ratioOrdered By: Manjinder Lynn on 09-03-2023 Albumin/Globulin [Mass ratio] 2.1 {ratio} [facility] Serum or plasma anion gap de terminationOrdered By: Manjinder Lynn on 09-03-2023 Anion gap [Moles/Vol] 11.4 mmol/L 6.0-15.0 [facility] Sodium [Moles/volume] in Ser um or PlasmaOrdered By: Manjinder Lynn on 09-03-2023 Sodium [Moles/Vol] 138 mmol/L 136-145 [facility] Urea nitrogen [Mass/volume] in Serum or PlasmaOrdered By: Manjinder Lynn on 09-03-2023 Urea nitrogen [Mass/Vol] 11 mg/dL 7-25 [facility] WBC Auto (Bld) [#/Vol]Ordere d By: Manjinder Lynn on 09-03-2023 WBC (Bld) [#/Vol] 9.2 10*3/uL 4.1-10.5 [facility] XR chest 1Von 09-03-2023 XR chest 1V [facility] [place] [address] XRay Report Signed Patient: Cas Calhoun MR#: [id number] : 1980 Acct:[id number] Age/Sex: 43 / M ADM Date: 09/03/23 Loc: [place] Room: Type: [facility] Attending Dr: Manjinder Lynn Jr, DO Copies [...] Pelon Salazar M.D.09/03/2023 1:17 PM Dictation Location: [place] [address] Transcribed By: [facility] 09/03/23 1317 Dictated By: Pelon Salazar DO 09/03/23 1317 Signed By: 09/03/23 1317 Normal [facility] Complete Blood Counton 08-07 Erythrocyte distribution width (RBC) [Ratio] 13.0 % Normal 11.0-15.0 [facility] Specialist Comment on above: Performed By: #### L IPD, CBC, CMP #### [facility] [address] [place], [place] [id number] Hematocrit (Bld) [Volume fraction] 46.2 % Normal 38.5-50.0 [facility] Specialist Comment on above: Performed By: #### L IPD, CBC, CMP #### [facility] [address] [place], [place] [id number] Hemoglobin (Bld) [Mass/Vol] 15.6 g/dL Normal 13.0-17.1 [facility] Specialist Comment on above: Performed By: #### L IPD, CBC, CMP #### [facility] [address] [place], [place] [id number] MCH (RBC) [Entitic mass] 29.8 pg Normal 27.0-33.0 [facility] Comment on above: Performed By: #### L IPD, CBC, CMP #### [facility] [address] [place], [place] [id number] MCHC (RBC) [Mass/Vol] 33.8 g/dL Normal 32.0-36.0 [facility] Comment on above: Performed By: #### L IPD, CBC, CMP #### [facility] [address] [place], [place] [id number] MCV (RBC) [Entitic vol] 88 fL Normal 80-100 [facility] Comment on above: Performed By: #### L IPD, CBC, CMP #### [facility] [address] [place], [place] [id number] Platelet mean volume (Bld) [Entitic vol] 11.20 fL Normal 7.50-12.50 [facility] Specialist Comment on above: Performed By: #### L IPD, CBC, CMP #### [facility] [address] [place], [place] [id number] Platelets (Bld) [#/Vol] 231 10*3/uL Normal 140-400 [facility] Specialist Comment on above: Performed By: #### L IPD, CBC, CMP #### [facility] [address] [place], [place] [id number] RBC (Bld) [#/Vol] 5.24 10*6/uL Normal 4.20-5.80 [facility] Specialist Comment on above: Performed By: #### L IPD, CBC, CMP #### [facility] [address] [place], [place] [id number] RDW-SD 42.1 fL Normal 37.0-50.0 [facility] Specialist Comment on above: Performed By: #### L IPD, CBC, CMP #### [facility] [address] [place], [place] [id number] WBC (Bld) [#/Vol] 9.2 10*3/uL Normal 3.8-11.0 [facility] Night Coordinator Comment on above: Performed By: #### L IPD, CBC, CMP #### [facility] [address] [place], [place] [id number] Comprehensive Metabolic Pane [facility] 08-07-2021 Albumin [Mass/Vol] 4.7 g/dL Normal 3.6-5.1 [facility] Night Coordinator Comment on above: Performed By: #### L IPD, CBC, CMP #### [facility] [address] [place], [place] [id number] Albumin/Globulin [Mass ratio] 2.4 {ratio} Normal 1.0-2.5 [facility] Specialist Comment on above: Performed By: #### L IPD, CBC, CMP #### [facility] [address] [place], [place] [id number] ALP [Catalytic activity/Vol] 76 U/L Normal 40-129 [facility] Specialist Comment on above: Performed By: #### L IPD, CBC, CMP #### [facility] [address] [place], [place] [id number] ALT [Catalytic activity/Vol] 52 U/L High 9-46 [facility] Specialist Comment on above: Result Comment: 03/28 Female reference range changed. Performed By: #### L IPD, CBC, CMP #### [facility] [address] [place], [place] [id number] Anion gap [Moles/Vol] 18 mmol/L Normal 12-20 [facility] Comment on above: Result Comment: [place] [facility] 05/03/2019 reference range changed. Performed By: #### L IPD, CBC, CMP #### [facility] [address] [place], [place] [id number] AST [Catalytic activity/Vol] 36 U/L Normal 10-40 [facility] Comment on above: Performed By: #### L IPD, CBC, CMP #### [facility] [address], [place] [id number] Bilirubin [Mass/Vol] 1.27 mg/dL High 0.30-1.20 [facility] Comment on above: Performed By: #### L IPD, CBC, CMP #### [facility] [address], [place] [id number] BUN/CREA 10 Ratio Normal 6-22 [facility] Comment on above: Performed By: #### L IPD, CBC, CMP #### [facility] [address], [place] [id number] Calcium [Mass/Vol] 9.6 mg/dL Normal 8.6-10.2 [facility] Comment on above: Performed By: #### L IPD, CBC, CMP #### [facility] [address], [place] [id number] Chloride [Moles/Vol] 104 mmol/L Normal 98-107 [facility] Comment on above: Performed By: #### L IPD, CBC, CMP #### [facility] [address], [place] [id number] CO2 [Moles/Vol] 22 mmol/L Normal 20-31 [facility] Comment on above: Performed By: #### L IPD, CBC, CMP #### [facility] [address], [place] [id number] Creatinine [Mass/Vol] 1.0 mg/dL Normal 0.7-1.4 [facility] Comment on above: Performed By: #### L IPD, CBC, CMP #### [facility] [address], [place] [id number] eGFRAA 96 mL/min/1.73m2 Normal >60 [facility] Comment on above: Performed By: #### L IPD, CBC, CMP #### [facility] [address], [place] [id number] eGFRNAA 80 mL/min/1.73m2 Normal >60 [facility] Special[facility] Comment on above: Performed By: #### L IPD, CBC, CMP #### [facility] [address], [place] [id number] Globulin (S) [Mass/Vol] 2.0 g/dL Normal 1.9-3.7 N [facility] Comment on above: Performed By: #### L IPD, CBC, CMP #### [facility] [address], [place] [id number] Glucose [Mass/Vol] 76 mg/dL Normal 65-99 [facility] Night Coordinator Comment on above: Result Comment: For FASTING Glucose --- ADA reference ranges: Normal 65-99 mg/dl Prediabetes 100-125 Diabetes >/= 126 Performed By: #### L IPD, CBC, CMP #### [facility] [address], [place] [id number] Potassium [Moles/Vol] 4.7 mmol/L Normal 3.5-5.5 [facility] Specialist Comment on above: Result Comment: Spec imen is hemolyzed. Results may be affected. Performed By: #### L IPD, CBC, CMP #### [facility] [address], [place] [id number] Protein [Mass/Vol] 6.7 g/dL Normal 6.1-8.1 [facility] Comment on above: Performed By: #### L IPD, CBC, CMP #### [facility] [address], [place] [id number] Sodium [Moles/Vol] 139 mmol/L Normal 135-146 [facility] Comment on above: Performed By: #### L IPD, CBC, CMP #### [facility] [address], [place] [id number] Urea nitrogen [Mass/Vol] 11 mg/dL Normal 7-25 [facility] Night Coordinator Comment on above: Performed By: #### L IPD, CBC, CMP #### [facility] [address], [place] [id number] Lipid Panelon 08-07-2021 Cholesterol [Mass/Vol] 154 mg/dL Normal 125-200 No [facility]thern [facility] Comment on above: Result Comment: Low risk < 200mg/dL Borderline risk 201-239 mg/dl High risk > or equal to 240 Performed By: #### L IPD, CBC, CMP #### [facility] [address], [place] [id number] Cholesterol in HDL [Mass/Vol] 40 mg/dL Low >40 [facility] Specialist Comment on above: Result Comment: High Cardiovascular Risk HDL <40 mg/dL Low Cardiovascular Risk HDL > or equal to 60 mg/dl Performed By: #### L IPD, CBC, CMP #### [facility] [address], [place] [id number] Cholesterol in LDL [Mass/Vol] 88 mg/dL Normal [facility] Specialist Comment on above: Result Comment: LDL ATP III CLASSIFICATION LDL less than 100 mg/dl Optimal LDL 100-129 mg/dl Near or above optimal LDL 130-159 Borderline high LDL 160-189 High LDL greater than 189 mg/dl Very High Performed By: #### L IPD, CBC, CMP #### [facility] [address], [place] [id number] Cholesterol in VLDL [Mass/Vol] 26 mg/dL Normal [facility] Specialist Comment on above: Performed By: #### L IPD, CBC, CMP #### [facility] [address], [place] [id number] Cholesterol.total/Choles terol in HDL [Mass ratio] 4 {ratio} Normal [facility] Specialist Comment on above: Performed By: #### L IPD, CBC, CMP #### [facility] [address], [place] [id number] Triglyceride [Mass/Vol] 129 mg/dL Normal 30-150 N [facility] Comment on above: Result Comment: TRIG ATPIII CLASSIFICATIONS TRIG less than 150 mg/dl Normal TRIG 150-199 mg/dl Borderline High TRIG 200-500 mg/dl High TRIG greather than 500 mg/dl Very High Performed By: #### L IPD, CBC, CMP #### [facility] [address], [place] [id number] NR MR L-SPINE WO/W CONTRASTo n 01-13-2019 NR MR L-SPINE WO/W CONTRAST Patient Name: CAS CALHOUN STUDY: MR L-SPINE WO/W CONTRAST; 01/13/2019 10:05 am INDICATION: Radiculopathy, lumbar region. History of laminectomy. Right leg pain and numbness. COMPARISON: None. ACCESSION NUMBER(S): [id number] ORDERING CLINICIAN: ADELITA HENRY TECHNIQUE: Multisequential MR [...] Electronically signed by: BJ MUNGUIA MD Normal [facility] XR LUMBAR SPINE (MIN 4 VIEWS )on 12-17-2018 XR LUMBAR SPINE (MIN 4 VIEWS) Radiology exam is complete. No Radiologist dictation. Please follow up with ordering provider. Final result Normal [facility] Radiology exam is complete. No Radiologist dictation. Please follow up with ordering provider. [facility] [place], [place] Established Visit (Otolaryng ology)on 03-02-2018 Established Visit (Otolaryngology) Chief ComplaintNew patient suspected cholesteatoma History of Present IllnessHere today for mastoid bowl cleaning and follow up. Denies any interval otologic complaints since last being seen. Recall: 37 year old male referred by Dr. Head. [place] a [place] had a chronically draining ear and underwent [...] assist you through your ENT care at [facility].Dr. Chicas is an Ear surgeon. This means that he specializes in taking care of patients with complex ear problems.Dr. Chicas's office number is [phone]. While you may see him at a satellite office, she has a team committed to help meet your healthcare needs at [facility]'s main campus. This number is the most direct way to communicate with the office.Audra is Dr. Padilla elementary secretary and she answers the office phone [...] may include dieticians, social workers, speech therapists, vp communications, neurologist, and physical therapist. Dr. Chicas will provide these referrals as needed. Please let him know if you would like to request a specific referral.For your convenience, Dr. Chicas sees patients at several [facility] locations including [facility], [facility], and [facility]. While we try to make your [...] Mar 02 2018 2:05PM EST (Author) Normal [facility] Initial Visit (Otolaryngolog y)on 09-29-2017 Initial Visit (Otolaryngology) Chief ComplaintNew patient suspected cholesteatoma History of Present [age]immor16 year old male referred by Dr. Head. When [place] was a child [place] had a chronically draining ear and underwent [...] AM Vitals Vital Signs Recorded: 29Sep2017 11:23AMHeart [id number] yzskq38Yustss6 ft 2 nqIegcnu842 lb BMI Ovlhkmcisa27.65BSA Calculated2.59 Physical ExamCONSTITUTIONAL: No acute distressVOICE: No [...] assist you through your ENT care at [facility].Dr. Chicas is an Ear surgeon. This means that he specializes in taking care of patients with complex ear problems.Dr. Chicas's office number is [phone]. While you may see him at a satellite office, she has a team committed to help meet your healthcare needs at [facility]'s main campus. This number is the most direct way to communicate with the office.Audra is Dr. Padilla elementary secretary and she answers the office phone [...] may include dieticians, social workers, speech therapists, vp communications, neurologist, and physical therapist. Dr. Chicas will provide these referrals as needed. Please let him know if you would like to request a specific referral.For your convenience, Dr. Chicas sees patients at several [facility] locations including [facility], [facility], and [facility]. While we try to make your [...] Vital Sign Value Performing Clinician Faci lity 08-25-2024 09:36-0400 Diastolic blood pressure 70 mm[Hg] Erin Jamil EXPELLER OPERATOR Work Phone: [facility] 08-25-2024 09:36-0400 Heart rate 78 /min Erin Jamil EXPELLER OPERATOR Work Phone: [facility] 08-25-2024 09:36-0400 SaO2% (BldA) [Mass fraction] 98 % Erin Jamil EXPELLER OPERATOR Work Phone: [facility] 08-25-2024 09:36-0400 Systolic blood pressure 120 mm[Hg] Erin Jamil EXPELLER OPERATOR Work Phone: [facility] 08-09-2024 13:01-0400 Body height 188 cm Adelita Epperson MD Work Phone: [facility] 08-09-2024 13:01-0400 Body mass index (BMI) [Ratio] 36.85 kg/m2 Adelita Epperson MD Work Phone: [facility] 08-09-2024 13:01-0400 Body weight 130.18 kg Adelita Epperson MD Work Phone: [facility] 08-09-2024 13:01-0400 Diastolic blood pressure 80 mm[Hg] Adelita Epperson MD Work Phone: [facility] 08-09-2024 13:01-0400 Heart rate 81 /min Adelita Epperson MD Work Phone: [facility] 08-09-2024 13:01-0400 SaO2% (BldA) [Mass fraction] 95 % Adelita Epperson MD Work Phone: [facility] 08-09-2024 13:01-0400 Systolic blood pressure 136 mm[Hg] Adelita Epperson MD Work Phone: [facility] 06-15-2024 15:36-0500 Body height 188 cm Al [employer] DO Work Phone: [facility] 06-15-2024 15:36-0500 Body mass index (BMI) [Ratio] 36.59 kg/m2 Al Marin DO Work Phone: [facility] 06-15-2024 15:36-0500 Body weight 129.28 kg Al Marin DO Work Phone: [facility] 04-05-2024 07:58-0500 Body height 188 cm Adelita Epperson MD Work Phone: [facility] 04-05-2024 07:58-0500 Body mass index (BMI) [Ratio] 36.59 kg/m2 Adelita Epperson MD Work Phone: [facility] 04-05-2024 07:58-0500 Body weight 129.28 kg Adelita Epperson MD Work Phone: [facility] 04-05-2024 07:58-0500 Diastolic blood pressure 60 mm[Hg] Adelita Epperson MD Work Phone: [facility] 04-05-2024 07:58-0500 Heart rate 90 /min Adelita Epperson MD Work Phone: [facility] 04-05-2024 07:58-0500 SaO2% (BldA) [Mass fraction] 98 % Adelita Epperson MD Work Phone: [facility] 04-05-2024 07:58-0500 Systolic blood pressure 126 mm[Hg] Adelita Epperson MD Work Phone: [facility] Encounters Encounter Date Encounter Type Care Provider Facility Start: 11-23-2024 End: 11-23-2024 Darronbogatito flowsbryant Moreno DPM Work Phone: [facility] [place] [facility] Start: 11-23-2024 End: 11-23-2024 Bamboo flowsbryant Moreno DPM Work Phone: [facility] [place] [facility] Start: 11-23-2024 End: 11-23-2024 Office outpatient visit 15 minutes Wilfrido Moreno DPM Work Phone: [facility] [place] [facility] Comment on above: Tinea pedis of both feet (Primary Dx) Start: 11-23-2024 End: 11-23-2024 ambulatory WILFRIDO MORENO Not Available Start: 11-15-2024 End: 11-15-2024 ambulatory Andrius Vytautas Gieditis Facility:[facility] Start: 10-25-2024 End: 10-25-2024 ambulatory Andrius Vytautas Kostaitis Facility:[facility] Start: 10-11-2024 End: 10-11-2024 ambulatory Andrius Vytautas Kostaitis Facility:[facility] Start: 10-08-2024 End: 10-08-2024 Jose Moreno DPM Work Phone: [facility] Start: 10-08-2024 End: 10-08-2024 Bamboo flowsbryant Moreno DPM Work Phone: [facility] Start: 10-08-2024 End: 10-08-2024 Office outpatient visit 25 minutes Wilfrido Moreno DPM Work Phone: [facility] Comment on above: Ingrown toenail (Nicolasa [...] Bamboo flowsheet Wilfrido Moreno DPM Work Phone: [facility] Start: 09-15-2024 End: 09-15-2024 Bamboo flowsheet Wilfrido Moreno DPM Work Phone: [facility] Start: 09-15-2024 End: 09-15-2024 Office outpatient visit 25 minutes Wilfrido Moreno DPM Work Phone: [facility] Comment on above: Ingrown toenail (Nicolasa cal Dx); Bilateral foot pain Start: 09-15-2024 End: 09-15-2024 ambulatory WILFRIDO MORENO Not Available Start: 08-25-2024 End: 08-25-2024 Office outpatient visit 15 minutes Erin Jamil NP Work Phone: [facility] Comment on above: Groin abscess (Prima ry Dx); Cellulitis of groin Start: 08-25-2024 End: 08-25-2024 ambulatory ADELITA EPPERSON Not Available Start: 08-09-2024 End: 08-09-2024 Office outpatient visit 15 minutes Adelita Epperson MD Work Phone: [facility] Comment on above: Cellulitis of abdomi nal wall (Primary Dx); Abscess Start: 08-09-2024 End: 08-09-2024 ambulatory ADELITA EPPERSON Not Available Start: 07-05-2024 End: 07-05-2024 ambulatory Laura Luevano MD Facility:[facility] Start: 06-15-2024 End: 06-15-2024 Office outpatient visit 15 minutes Al Marin DO Work Phone: [facility] Comment on above: History of cholestea shayla (Primary Dx); Chronic mastoiditis of left side; Hearing loss of left ear, unspecified hearing loss type Start: 06-15-2024 End: 06-15-2024 ambulatory AL Bebeto TOMAS Not Available Start: 05-30-2024 End: 05-31-2024 Refill Adelita Epperson MD Work Phone: [facility] Comment on above: Obesity (BMI 30-39.9 ) Start: 04-23-2024 End: 04-23-2024 ambulatory ERIN Edith TARAN Not Available Start: 04-07-2024 End: 04-08-2024 Refill Adelita Epperson MD Work Phone: [facility] Comment on above: Obesity (BMI 30-39.9 ) Start: 04-05-2024 End: 04-05-2024 Office outpatient visit 25 minutes Adelita Epperson MD Work Phone: [facility] Comment on above: Osteoarthritis of sp ine with radiculopathy, lumbosacral region (Primary Dx); Severe obesity (BMI 35.0-39.9) with comorbidity (CMS/HCC); BMI 36.0-36.9,adult; Palpitations; Family history of early CAD; Cigarette nicotine dependence without complication; Annual physical exam; Medication management Start: 04-05-2024 End: 04-05-2024 Patient encounter procedure Adelita Epperson MD Work Phone: [facility] Start: 04-05-2024 End: 04-05-2024 ambulatory ADELITA EPPERSON Not Available Start: 03-24-2024 End: 03-24-2024 Refill Adelita Epperson MD Work Phone: [facility] Comment on above: Obesity (BMI 30-39.9 ) Start: 03-15-2024 End: 03-15-2024 ambulatory Laura Luevano MD Facility:[facility] Start: 03-02-2024 End: 03-02-2024 Orders Only Adelita Epperson MD Work Phone: [facility] Comment on above: Lumbar paraspinal mu scle spasm (Primary Dx); Lumbar radiculopathy Start: 02-10-2024 End: 02-11-2024 Refill Erin Jamil EXPELLER OPERATOR Work Phone: [facility] Comment on above: Obesity (BMI 30-39.9 ) Start: 01-13-2024 End: 01-13-2024 Refill Adelita Epperson MD Work Phone: [facility] Comment on above: Obesity (BMI 30-39.9 ) Start: 01-05-2024 End: 01-05-2024 ambulatory [facility] Start: 12-09-2023 End: 12-09-2023 ambulatory AL MARIN Not Available Start: 09-03-2023 End: 09-03-2023 ambulatory Manjinder Lynn Jr Facility:[facility] Start: 09-03-2023 End: 09-03-2023 ambulatory MD Adelita Epperson Work Phone: [facility] Work Phone: Start: 09-03-2023 End: 09-03-2023 Departed Referred MD Adelita Epperson Work Phone: [facility] [address] Work Phone: Start: 06-03-2023 Telephone encounter Laurie cameron EXPELLER OPERATOR Work Phone: [facility] Start: 09-05-[address] ADELITA EPPERSON Facility :[facility] Start: 08-06-2022 End: 08-06-2022 ambulatory NARENDRANATH LAKSHMIPATHY . Facility:[facility] Start: 07-23-2022 End: 07-24-2022 ambulatory NARENDRANATH LAKSHMIPATHY . Facility:[facility] Start: 03-28-2022 End: 03-29-2022 ambulatory SEAN WELLS . Facility:[facility] Start: 01-03-2022 End: 01-04-2022 ambulatory SEAN WELLS . Facility:[facility] Start: 10-04-2021 End: 10-05-2021 ambulatory SEAN WELLS . Facility:[facility] Start: 04-10-2020 End: 04-10-2020 Patient encounter procedure Adelita Epperson [facility] Start: 12-17-2018 End: 12-20-2018 Patient encounter procedure ADELITA EPPERSON [facility] Start: 12-17-2018 End: 12-19-2018 Subsequent hospital visit by physician [facility] Comment on above: Low back [...] End: 06-21-2025 Patient encounter procedure [facility] [place] Start: 12-27-2024 Influenza vaccination N [facility] Start: 11-23-2024 End: 11-23-2024 Patient encounter procedure 11/23/2024 9:15 AM EDT Office Visit [facility] [address] [place] [phone] Wilfrido Moreno, LYNDON [address] [place] [address] Arrived [facility] Comment on above: Arrived Start: 10-11-2024 End: 10-11-2024 Patient encounter procedure [facility] Start: 10-08-2024 End: 10-08-2024 Patient encounter procedure 10/08/2024 9:15 AM EDT Office Visit [facility] [address] [place] [phone] Wilfrido Moreno, DPM [address] [place] [address] Arrived [facility] Comment on above: Arrived Start: 09-29-2024 End: 09-29-2024 Patient encounter procedure 09/29/2024 8:00 AM EDT Office Visit [facility] [address] [place] [phone] Wilfrido Moreno, DPM [address] [place] [address] [facility] Start: 09-15-2024 End: 09-15-2024 Patient encounter procedure 09/15/2024 8:00 AM EDT Office Visit [facility] [address] [place] [phone] Wilfrido Moreno, DPM [address] [place] [address] Arrived [facility] Comment on above: Arrived Start: 07-12-2024 End: 07-12-2024 Patient encounter procedure 07/12/2024 8:45 AM EDT Office Visit [facility] [address] [place] [phone] Adelita Epperson MD [address] [place] [address] [facility] Start: 06-15-2024 End: 06-15-2024 Patient encounter procedure 06/15/2024 3:45 PM EST Office Visit [facility] [place] [address] [place] [phone] Al Marin S, DO [address] [place] [address] [facility] [place] Start: 05-31-2024 Influenza vaccination Influenza Vacc ine (#1) [facility] Comment on above: Postponed from 12/27 (Patient Refused) Start: 04-05-2024 End: 04-05-2024 Patient encounter procedure 04/05/2024 8:15 AM EST Office Visit [facility] [address] [place] [address] Adelita Epperson MD [address] [place] [address] [facility] Start: 03-11-2024 End: 03-11-2024 Patient encounter procedure 03/11/2024 3:15 PM EST Office Visit [facility] [address] [place] [address] Al Marin, DO [address] [facility] [place] [address] [facility] Start: 03-02-2024 End: 03-02-2024 ambulatory 03/02/2024 10:30 AM EST Evaluation [facility] [address] [place] [phone] Antonio Solomon, PT [address] [place] [phone] [facility] Start: 12-28-2023 Influenza vaccination Influenza Vacc ine (#1) [facility] Start: 08-26-2023 End: 08-26-2023 Patient encounter procedure 08/26/2023 3:45 PM EDT Office Visit [facility] [place] [address] [place] [phone] Al Marin, DO [address] [place] [address] [facility] [place] Start: 07-14-2023 End: 07-14-2023 Patient encounter procedure 07/14/2023 8:45 AM EDT Office Visit [facility] [address] [place] [phone] Adelita Epperson MD [address] [place] [address] [facility] Start: 06-23-2023 End: 06-23-2023 Patient encounter procedure 06/23/2023 8:00 AM EST Office Visit [facility] [address] [place] [phone] Laurie Haley, EXPELLER OPERATOR [address] [place] [address] [facility] Start: 06-16-2023 End: 06-16-2023 ambulatory 06/16/2023 4:15 PM EST Treatment [facility] [address] [place] [address] Antonio Solomon, PT [address] [place] [address] [facility] Start: 06-09-2023 End: 06-09-2023 ambulatory 06/09/2023 4:30 PM EST Treatment [facility] [address] [place] [address] Antonio Solomon, PT [address] [place] [address] [facility] Start: 06-04-2023 End: 06-04-2024 MR Lumbar spine WO contrast MR lumbar spine wo contrast Imaging Routine DDD (degenerative disc disease), lumbar Lumbar herniated disc Expected: 06/04/2023 (Approximate), Expires: 06/04/2024 [facility] Work Phone: Comment on above: Expected: 06/04/2023 (Approximate), Expires: 06/04/2024 Start: 12-27-2022 Influenza vaccination Influenza Vacc ine (#1) [facility] Start: 12-27-2018 Influenza vaccination Flu vaccine (# 1) [place], [place] Start: 1999 DTaP/Tdap/Td vaccine (1 - Tdap) DTaP/Tdap/Td vaccine (1 - Tdap) [place], [place] Start: 1995 HIV screen HIV screen [place], [place] Start: 1993 Varicella Vaccine (1 of 2 - 13+ 2-dose series) Varicella Vaccine (1 of 2 - 13+ 2-dose series) [place], [place] Start: 1986 Pneumococcal 0-64 ye ars Vaccine (1 of 1 - PPSV23) Pneumococcal 0-64 years Vaccine (1 of 1 - PPSV23) [place], [place] Basic metabolic 1998 panel - Serum or Plasma Basic metabolic panel Lab Routine Annual physical exam Medication management Ordered: 04/05/2024 [facility] Work Phone: Comment on above: Ordered: 04/05/2024 CBC W Auto Different ial panel - Blood CBC and differential Lab Routine Annual physical exam Ordered: 04/05/2024 [facility] Comment on above: Ordered: 04/05/2024 Hepatic function 200 0 panel - Serum or Plasma Hepatic function panel Lab Routine Medication management Ordered: 04/05/2024 [facility] Comment on above: Ordered: 04/05/2024 Lipid 1996 panel - Serum or Plasma Lipid panel Lab Routine Severe obesity (BMI 35.0-39.9) with comorbidity (CMS/HCC) Annual physical exam Ordered: 04/05/2024 [facility] Comment on above: Ordered: 04/05/2024 Payers Date Payer Category Payer Self-pay [id number] 2020 [facility] er [id number] 2020 Unknown [id number] 2017 Private Health Insurance [id number] 2017 Private Health Insurance [employer] xxxxxxxxxx 2017-Present [phone] [address] [place] [address] xxxxxxxxxx [id number] 1980 Unknown [id number] .356 1980 Unknown [id number] [id number] .356 1980 Unknown [id number] [id number] .356 1980 Unknown [id number] 2.16.840.1.260047.3.579.2 .185 1980 Unknown [id number] [id number] .593 1980 Unknown [id number] [id number] .593 1980 Unknown [id number] [id number] .593 1980 Unknown [id number] 2.16.840.1.654772.3.579.2 .593 1980 Unknown [id number] 2.16.840.1.088167.3.579.2 .593 1980 Unknown [id number] 2.16.840.1.920867.3.579.2 .593 1980 Unknown [id number] 2.16.840.1.068394.3.579.2 .1258 1980 Unknown [id number] 2.16.840.1.469454.3.579.2 .1258 1980 Unknown [id number] 2.16.840.1.079490.3.579.2 .1258 1980 Unknown [id number] 2.16.840.1.972581.3.579.2 .1258 1980 Unknown [id number] 2.16.840.1.772515.3.579.2 .1258 1980 Unknown [id number] 2.16.840.1.185392.3.579.2 .1258 1980 Unknown [id number] 2.16.840.1.239315.3.579.2 .1258 1980 Unknown [id number] 2.16.840.1.673611.3.579.2 .1258 1980 Unknown [id number] 2.16.840.1.025396.3.579.2 .1258 1980 Unknown [id number] 2.16.840.1.760114.3.579.2 .1258 1980 Unknown [id number] 2.16.840.1.364952.3.579.2 .1980 Unknown [id number] 2.16.840.1.171757.3.579.2 .1980 Unknown [id number] 2.16.840.1.182348.3.579.2 .1980 Unknown [id number] 2.16.840.1.082663.3.579.2 .1980 Unknown [id number] 2.16.840.1.855379.3.579.2 .196 1980 Unknown [id number] 2.16.840.1.657295.3.579.2 .196 1959 Unknown [id number] Unknown [id number] 2.16.840.1.098892.3.579.2 .531 Social History Date Type Detail Facility Start: 04-28-1993 End: 10-07-2023 Tobacco smoking status NHIS Current every day smoker [place] Start: 01-16-2018 End: 04-05-2024 Alcohol intake No [place] Sex Assigned At Not on file [place] Start: 1980 Sex Assigned At Male [facility] Start: 04-28-1993 History of tobacco use Cigarette Smo ker [facility] Start: 02-25-2023 End: 04-05-2024 Cigarettes smoked current (pack per day) - Reported 0.5 [facility] Start: 02-25-2023 End: 10-07-2023 Tobacco use and exposure Smokeless tobacco non-user [facility] Start: 05-05-2023 End: 11-23-2024 Alcohol intake Lifetime non-drinker (finding) [facility] [...] Desired Activity /State Clinical Notes 10-04-2021 to 11-23-2024 Wilfrido Moreno DPM - 11/23/2024 9:15 AM EDMagalie Moreno DPM - 10/08/2024 9:15 AM Tamanna Bolivar MA - 09/15/2024 8:00 AM EDMagalie Moreno DPM - 09/15/2024 8:00 AM EDT Note Date & Type Note Facility 11-23-2024 History of Presen t illness Narrative [facility] CC: F/U Tinea Pedis HPI:Cas Calhoun is a 44 y.o. male who presents for follow up of tinea pedis. Patient states since last visit he started using Ketoconazole cream daily with good relief. He states about 1 day after beginning treatment it started to clear up. Patient states he has not has recurrence of the tinea pedis. He denies flaking skin, redness, or dryness. He denies itching to foot. States in regards to his prior IGTN he is having no current issues after procedure. Patient is current every day smoker, about [...] Current Outpatient Medications Medication Sig Dispense Refill ibuprofen 800 MG tablet Take 800 mg by mouth every 6 (six) hours if needed phentermine (Adipex-P) 37.5 MG tablet Take 1 tablet (37.5 mg) by mouth in the morning. Take before meals. 90 tablet 0 Cannabinoids (medical cannabis) No current facility-administered medications for this visit. [...] Skin texture and turgor within normal limits. Prior operative site to medial border of the 1st digit, bilateral foot is healed without sign of infection noted. There is no drainage. There is no erythema. No evidence of ascending cellulitis. No rashes, subcutaneous nodules, or open lesions noted. There is no longed dry flaking skin in moccasin distribution to bilateral foot with no erythema noted. Musculoskeletal/Orthopaedic: General foot morphology: Rectus. No gross digital deformity noted. No pain on palpation noted to the medial border of the 1st digit, bilateral foot. Assessment: Encounter Diagnosis Name Primary? Tinea pedis of both feet Yes Plan: A comprehensive history and physical examination were performed. Patient was educated on clinical and radiographic findings, diagnosis and treatment plans. Patient states that he understands all that has been explained and all questions were answered to their apparent satisfaction. Patient seen and evaluated In regards to his tinea pedis, it has resolved at this time with use of Ketoconazole We discussed that at this time he can discontinue ketoconazole and monitor for recurrence If he begins to notice redness, dryness, flaking or itching he is to resume daily application of cream to plantar foot. Patient expressed understanding Discussed importance of changing moist socks or boots to decrease moisture inbalance Follow up PRN Wilfrido Moreno DPM documented in this encounter [facility] 10-08-2024 History of Presen t illness Narrative [...] Wilfrido Moreno DPM documented in this encounter [facility] 09-15-2024 History of Presen t illness [...] Homegoing instructions were dispensed, including office and supervisor electronics inspection contact numbers. A total of 30 minutes was spent in formulation of this note, review of charts, labs, imaging with a minimum of 50% of the time spent in face to face with with the patient. All questions and concerns were answered to the patients satisfaction. documented in this encounter [facility] 09-15-2024 Instructions Linda Bolivar MA - [...] problems arise, please call the office at [phone]. documented in this encounter [facility] 08-25-2024 History of Presen t illness [...] tablet; Refill: 0 documented in this encounter [facility] 08-09-2024 History of Presen t illness [...] for oral antibiotics will be sent to [facility] in [place]. If there is no improvement with oral antibiotics, intravenous antibiotics may be considered. documented in this encounter [facility] 06-15-2024 History of Presen t illness [...] in 1 year documented in this encounter [facility] 04-05-2024 History of Presen t illness [...] Hepatic function panel documented in this encounter [facility] 03-24-2024 Telephone encount er Note Pt requesting a refill on Adipex to [facility] in [place] [facility] 03-24-2024 Miscellaneous Notes Formattin g of this note might be different from the original. Pt requesting a refill on Adipex to [facility] in [place] documented in this encounter [facility] 06-03-2023 Telephone encount er Note Pt called back and would like to do MRI at [facility]. [facility] 06-03-2023 Miscellaneous Notes Formattin g of this note might be different from the original. Pt called back and would like to do MRI at [facility]. documented in this encounter [facility] 07-23-2022 Note PAIN MANAGEMENT CONS ULTATION CONSULTATION DATE: 07/23/2022 ADDENDUM: The dictation mentions denervation of the L4-5, L5-S1 facet joint under fluoroscopic guidance by using radiofrequency ablation on the left side. The dictation should read: Proceed with radiofrequency ablation of the L2-3, L4-5 levels under fluoroscopic guidance on the left side. [facility] 07-23-2022 Note PAIN MANAGEMENT CONS ULTATION CONSULTATION DATE: 07/23/2022 ADDENDUM: The dictation mentions denervation of the L4-5, L5-S1 facet joint under fluoroscopic guidance by using radiofrequency ablation on the left side. The dictation should read: Proceeded with radiofrequency ablation of the L2-3, L4-5 levels under fluoroscopic guidance on the left side. [facility] 07-23-2022 Note CONSULTATION CONSULTATION DATE: 07/23/2022 [...] to proceed with the outlined plan. 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 He reports 0/10 pain [...] in six months' time for re-evaluation. [facility] 01-03-2022 Note CONSULTATION CONSULTATION DATE: 01/03/2022 [...] three months' time, unless otherwise indicated. [facility] 10-04-2021 Note CONSULTATION CONSULTATION DATE: 10/04/2021 [...] gluconate 800 mg q.h.s. in addition to noco-zlu-yxbrzxs ibuprofen 600 mg q.a.m. before work. Daily stretching and the use of heat were encouraged to aid with the spasms. We discussed about different vitamin regimens and the patient was willing to try. He will be followed up in the clinic in three months' time unless otherwise indicated. The patient agrees with the plan of care. [facility] Signed and Approved by: SEAN WELLS . 10/11/2021 16:03:00 [facility] Evaluation note Diagnosis DDD (degenerative disc disease), lumbar- Primary Degeneration of lumbar or lumbosacral intervertebral disc Lumbar herniated disc documented in this encounter [facility] HealthcareEvaluation noteNo assessment information availableK[facility] Work Phone: Evaluation note* Diagnosis Obesity (BMI [...] Primary Severe obesity (BMI 35.0-39.9) with comorbidity (CMS/FORMERLY [facility]) BMI 36.0-36.9,adult Palpitations Family history of early [...] loss type [facility] Diagnosis Cellulitis of abdominal wall- Primary Cellulitis and abscess of trunk Abscess Cellulitis and abscess of unspecified site documented in this encounter [facility]* Diagnosis Groin abscess- Primary Cellulitis and abscess of trunk Cellulitis of groin Cellulitis and abscess of trunk documented in this encounter [facility] HealthcareEvaluation note* Diagnosis Ingrown toenail- Primary Ingrowing nail Bilateral foot pain documented in this encounter [facility] HealthcareEvaluation note* Diagnosis Ingrown toenail- Primary Ingrowing nail Tinea pedis of both feet documented in this encounter [facility] HealthcareEvaluation note* Diagnosis Tinea pedis of both feet- Primary [facility] Rehabilitation - Outpatient (Routine) - Authorized Specialty Diagnoses / Procedures Referred By Selvin garcia Referred To Contact Physical Therapy Diagnoses Lumbar paraspinal muscle spasm Lumbar radiculopathy Procedures AR OFFICE/OUTPATIENT [facility] MDM 60 MINUTES Adelita Epperson MD [address] [place] [address] Phone: tel: fax: Antonio Solomon, PT [address] [place] [address] Phone: tel: fax: Referral ID Status Reason Start Date Expiration Date Visits Requested Visits Authorized [id number] Authorized Consult and Treat 03/02/2024 08/29/2024 53 53 [facility] Summary Purpose Family History No Family History Records FoundNo Family History Records FoundNo Family History Records FoundNo Family History Records FoundNo Family History Records FoundNo Family History Records FoundNo Family History Records FoundNo Family History Records FoundNo Family History Records Found Advance Directives No Advanced Directives Records FoundDocuments on File Type Date Recorded Patient Operator Automated Process Expl anation Advance Directives and Living Will Power of Violin Tutor Advance Directive Response Recorded Date/ Time Advance [...] MR lumbar spine wo contrast Laurie Haley, EXPELLER OPERATOR [address] [facility] [address] [place] [address] Referral ID Status Reason Start Date Expiration Date V isits Requested Visits Authorized [id number] Pending Review 06/04/2023 12/01/2023 1 1 Additional Source Comments (unrecognized sect ion and content) No Status Records FoundNo Status Records FoundNo Status Records FoundNo Status Records FoundNo Status Records FoundNo Status Records FoundNo Status Records FoundNo Status Records FoundNo Status Records Found INFORMATION SOURCE (unrecogn ized section and content) DATE CREATED AUTHOR 04/05/2018 [facility] DATE CREATED AUTHOR AUTHOR'S ORGANIZ ATION 04/05/2018 [facility] DATE CREATED AUTHOR AUTHOR'S ORGANIZ ATION 12/20/2018 [facility] DATE CREATED AUTHOR AUTHOR'S ORGANIZ ATION 01/31/2019 [facility] DATE CREATED AUTHOR AUTHOR'S ORGANIZ ATION 08/08/2021 [facility] dical Specialist DATE CREATED AUTHOR AUTHOR'S ORGANIZ ATION 08/09/2022 [facility] [place] [facility] DATE CREATED AUTHOR AUTHOR'S ORGANIZ ATION 09/04/2023 [facility] DATE CREATED AUTHOR AUTHOR'S ORGANIZ ATION 11/24/2024 [facility] dical Specialists EPIC DATE CREATED AUTHOR AUTHOR'S ORGANIZ ATION 11/26/2024 [facility] Care Teams (unrecognized sec tion and content) 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 Relationship Specialty Start Date End Date Adelita Epperson MD [address] [place] [address] PCP - General Internal Medicine 11/06/22 Team Status: Active Member Role Status Dates Adelita Epperson MD Primary Care Provider Active Team Status: Inactive Member Role Status Dates Adelita Epperson MD Primary Care Provider Active St art: September 03, 2023 End: September 03, 2023 Manjinder Lynn Jr, DO Attending Provider Active S tart: September 03, 2023 End: September 03, 2023 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 Relationship Specialty Start Date End Date Adelita Epperson MD [address] [place] [address] PCP - General Internal Medicine 11/06/22 Adelita Epperson MD [address] [place] [address] PCP - [place] [facility] 06/27/23 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 Relationship Specialty Start Date End Date Adelita Epperson MD [address] [place] [address] PCP - General Internal Medicine 11/06/22 Adelita Epperson MD [address] [place] [address] PCP - [place] [facility] 06/27/23 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 Relationship Specialty Start Date End Date Adelita Epperson MD [address] [place] [address] PCP - General Internal Medicine 11/06/22 Adelita Epperson MD [address] [place] [address] PCP - [place] [facility] 06/27/23 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 Relationship Specialty Start Date End Date Adelita Epperson MD [address] [place] [address] PCP - General Internal Medicine 11/06/22 Adelita Epperson MD [address] [place] [address] PCP - [place] [facility] 06/27/23 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 Relationship Specialty Start Date End Date Adelita Epperson MD [address] [place] [address] PCP - General Internal Medicine 11/06/22 Adelita Epperson MD [address] [place] [address] PCP - [place] [facility] 06/27/23 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 Relationship Specialty Start Date End Date Adelita Epperson MD [address] [place] [address] PCP - General Internal Medicine 11/06/22 Adelita Epperson MD [address] [facility] [address] [place] [address] PCP - [place] [employer] 06/27/23 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 Relationship Specialty Start Date End Date Adelita Epperson MD [address] [place] [phone] PCP - General Internal Medicine 11/06/22 Adelita Epperson MD [address] [place] [facility] [address] [place] [address] PCP - [place] [employer] 06/27/23 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 Relationship Specialty Start Date End Date Adelita Epperson MD [address] [place] [address] PCP - General Internal Medicine 11/06/22 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 Relationship Specialty Start Date End Date Adelita Epperson MD [address] [place] [address] PCP - General Internal Medicine 11/06/22 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 Relationship Specialty Start Date End Date Adelita Epperson MD [address] [place] [address] PCP - General Internal Medicine 11/06/22 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 Relationship Specialty Start Date End Date Adelita Epperson MD [address] [place] [address] PCP - General Internal Medicine 11/06/22 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 Relationship Specialty Start Date End Date Adelita Epperson MD [address] [place] [address] PCP - General Internal Medicine 11/06/22 Goals [...] Comments Cellulitis follow-up Pt was seen in off ce 08/09/2024. Prescribed Bactrim bid for 7 [...] BE BASED ON THE PRIMARY CLINICAL RECORDS. [facility], [facility]. provides no warranty or guarantee of the accuracy or completeness of information in this document.
--- NOTE | 2024-12-15 08:39 | P.CN_ITS ---
Consult Note: HPI Data of Consult Patient: known to practice within the last 3 years Requesting Physician: Jeanette Castro NP Primary Care Provider: ADELITA EPPERSON Consult Narrative Reason for consult: RFA f/u Narrative: Cas Calhoun a pleasant 44 year old male presents for evaluation of low back pain. Pain today 2/10 constant, bruise to left lower back. notes > 80% improvement in pain post bilateral L3-4 L4-5 RFA. utilizing advil maybe twice a week per pt and baclofen very sparingly. reports no activity makes his pain better or worse at this time, just constant 2/10 pain. cc:: CC: Jeanette Castro NP Review of Systems 2 ROS0 Musculoskeletal Reports: back pain PFSH PFSH Surgical History Hx of tonsillectomy ?Z90.89 - Acquired absence of other organs (ICD-10) History of tympanoplasty ?Z98.890 - Other specified postprocedural states (ICD-10) History of lumbar surgery ?Z98.890 - Other specified postprocedural states (ICD-10) Meds Home Medications and Allergies Home Medications ?Medication ?Instructions ?Recorded ?Confirmed ?Type thc gummies PO .qhs 07/03/23 History baclofen 10 mg tablet 10 mg PO .qhs 12/16/2311/15 History Allergies Allergy/AdvReac Type Severity Reaction Status Date / Time No Known Drug Allergies Allergy Verified 11/15/24 09:45 Exam Constitutional Documenting provider has reviewed patient's vital signs: yes Common normals: no apparent distress, oriented x3, healthy appearing, alert and well nourished General appearance: cooperative HENMT Common normals: normocephalic, hearing grossly normal bilaterally and moist oral mucous membranes Head and scalp: normocephalic Eye Common normals: PERRL Pupil: PERRL Neck & C-Spine Common normals: full ROM General: normal visual inspection Chest Common normals: inspection of chest normal Respiratory Common normals: normal respiratory effort, no retractions and no use of accessory muscles Back & Pelvis Lumbar spine/lower back: paraspinal muscle tenderness Lumbar paraspinal muscle tenderness: left left lumbar paraspinal muscle tenderness: L3, L4 and L5; no pain with ROM, no lumbar spinal tenderness and no paraspinal muscle spasm Sacroiliac joints: SI joints normal Other: negative facet loading sensation intact BLE left SIJ negative mario(patricks), gaenslens, thigh thrust, compression test Back image (male): 2 1. constant pain Neuro Common normals: oriented x3 Sensorium/orientation: alert Psych Common normals: mental status grossly normal, thought process normal, cooperative, affect normal, speech normal and activity/motor behavior normal Speech: normal speech Thought process: normal thought process Results Additional Findings Additional findings: If on a controlled substance or opioids, I have checked an [place] report on this patient and there are no aberrancies noted in the prescribing history.??If on a controlled substance or opioid a drug screen was completed and reviewed within the last year, and if there has not been a drug screen completed we ordered one today to monitor higher risk, state monitored pain medication use. As part of providing excellent, safe, comprehensive care, the following was completed at our patient's visit: 1. A medication reconciliation and review to ensure accurate knowledge of current/active medications, including asking our patients to inform us about any fpyc-apy-nlfemvd medications or herbal remedies/nutritional supplements/alternative remedies. 2. A review to specifically ensure our patients have had annual screening for screening for depression, screening for tobacco use, and screening for unhealthy alcohol use. For concerning screenings had a discussion with the patient, provided patient education, and recommended follow-up with primary care provider when appropriate. If patient noted with a risk of falling, they received education on strength, gait, and balance training to prevent future risk of falling. Portions of this note may have been carried over from the previous visit and updated as appropriate. Please note this office utilizes paper charting in addition to the electronic medical record. A list of current medications, vitals, and PMH is available there as the clinical staff outside of myself do not have access to [employer] charting during the clinic day operations. As part of providing quality comprehensive care the current medications, vitals, and PMH were reviewed in the paper chart. Assessment and Plan Assessment and Plan (1) Lumbar spondylosis: (2) Myofascial pain: Plan 44 year old male with chronic low back pain, status post bilateral L3-4 L4-5 facet RFA 11-15-24 with 85-90% improvement per pt. continue current medications PRN. continue HEP as tolerated. fu 6 months, sooner if needed.
== END 2024-12-15 08:22 | disposition home or self-care (01) ==
LOC: PM 08:21
PROVIDERS: PCP Internal Medicine; Visit Provider Nurse Practitioner
DX: M47.816 Spondylosis without myelopathy or radiculopathy, lumbar region (principal); M79.18 Myalgia, other site
CPT/HCPCS: G0463

== ENCOUNTER 2025-01-26 08:05 | Outpatient (OUT) | payer BC, SELFPAY ==
--- OUTSIDE RECORDS SUMMARY | 2024-11-23 08:56 | XMS_ITS ---
Author Name Auto Generated Organization [place] Support Name Relationship Address Phone DARRION MORAN Next of Kin [address] [place] [address] + ~([phone] FERNIE MORAN Next of Kin Unknown [phone] DARRION MORAN Next of Kin [address] [place] [address] + ~([phone] FERNIE MORAN Next of Kin Unknown [phone] DARRION MORAN Next of Kin [address] [facility] [place] [address] + ~([phone] FERNIE MORAN Next of Kin Unknown [phone] DARRION MORAN Next of Kin [address] [facility] [place] [address] + ~([phone] FERNIE MORAN Next of Kin Unknown [phone] DARRION MORAN Next of Kin [address] [facility] [place] [place] [address] + ~(567 FERNIE MORAN Next of Kin Unknown [phone] DARRION MORAN Next of Kin [address] [facility] [place] [place] [address] + ~(567 FERNIE MORAN Next of Kin Unknown [phone] DARRION MORAN Next of Kin [address] [facility] [place] [address] + ~(567 FERNIE MORAN Next of Kin Unknown [phone] DARRION MORAN Next of Kin [address] [place] [address] + ~(527 FERNIE MORAN Next of Kin Unknown [phone] DARRION MORAN Next of Kin [address] [place] [address] + ~([phone] FERNIE MORAN Next of Kin Unknown [phone] Care Team Providers Care Spiritual Advisor Name Role Phone Chloé CID, Laura Gutierrez Attending Unavailable Chloé CID, Laura Gutierrez Attending Unavailable Chloé CID, Laura Gutierrez Attending Unavailable Chloé CID, Laura Gutierrez Attending Unavailable Chloé CID, Laura Gutierrez Attending Unavailable CHARITY MARIN Attending Unavailable ADELITA EPPERSON Attending Unavailable ZHOU, ADELITA Whitaker Attending Unavailable PERCY MORENO Attending UnavailPERCY Mchugh Attending UnavailPERCY Mchugh Attending UnavailANTONIO Maharaj Attending Unavailable ADELITA EPPERSON Referring Unavailable ADELITA EPPERSON Attending Unavailable JORGITO CHIRINOS Attending Unavailable PROBLEMS No Problem Records Found PROCEDURES No Procedure Records Found RESULTS No Result Records Found ALLERGIES No Allergies Records Found ENCOUNTERS ADMIT/DISCHARGE ACCOUNT NUMBER ADMITTING ENCOUNTER CLASS LOCATION SOURCE 11/23/2024/ 5 [id number] Ambulatory Building:[facility] 11/15/2024/ 5 [id number] [place] 10/25/2024/ 5 [id number] Ambulatory PM [place] 10/11/2024/ 5 [id number] Ambulatory PM [facility] 10/08/2024/ 5 [id number] Ambulatory Building:[facility] P[facility] 09/15/2024/ 5 [id number] Ambulatory Building:[facility] P[facility] 08/25/2024/ 5 [id number] Ambulatory Building:[facility] 08/09/2024/ 5 [id number] Ambulatory Building:[facility] 07/05/2024/ 5 [id number] Ambulatory PM [place] [place] [facility] 06/15/2024/ 5 [id number] Ambulatory Building:NOM S NB ENT [facility] 04/23/2024/ 4 [id number] [facility] 04/05/2024/ 4 [id number] Ambulatory Building:[facility] 03/15/2024/ 4 [id number] Ambulatory PM [place] [facility] 03/02/2024/ 4 [id number] Ambulatory Building:NOM S NM PT [facility] PAYERS ENCOUNTER GUARANTOR PAYER SUBSCRIBER SOURCE 11/23/2024 LUÍS RAMÍREZ: [place] [address]Mlv: () Primary Insurance:[employer] cy Number: [id number] tom Date:2020-10-26 LUÍS RAMÍREZ: [id number] [place] [address] [facility] 11/15/2024 Luís WorrellB: [place] [address] Primary Insurance:AnthemPo licy Number: Effective Date:[id number] n Name:LIBBY Puckett [id number], [place] [address]FS: Luís WorrellB: [id number] [place] [address] [facility] 10/25/2024 Luís WorrellB: [place] [address] Primary Insurance:AnthemPo licy Number: Effective Date:[id number] n Name:LIBBY Puckett [id number], [place] [address]QI: Luís WorrellB: [id number] [place] [address] [facility] 10/11/2024 Luís WorrellB: [place] [address] Primary Insurance:AnthemPo licy Number: Effective Date:[id number] n Name:LIBBY Puckett [id number], [place] [address]SI: Luís WorrellB: [id number] [place] [address] [facility] 10/08/2024 LUÍS WORRELLB: [place] [address]Rht: (HP) Primary Insurance:BCBSPoli cy Number: [id number] tom Date:2020-10-26 LUÍS RAMÍREZ: [id number] [place] [address] [facility] 09/15/2024 LUÍS WORRELLB: [place] [address]Uwm: (HP) Primary Insurance:BCBSPoli cy Number: [id number] tom Date:2020-10-26 LUÍS RAMÍREZ: [id number] [place] [address] [facility] 08/25/2024 LUÍS RAMÍREZ: [place] [address]Bfv: (HP) Primary Insurance:BCBSPoli cy Number: [id number] tom Date:2020-10-26 LUÍS RAMÍREZ: [id number] [place] [address] [facility] 08/09/2024 LUÍS RAMÍREZ: [place] [address]Xyj: (HP) Primary Insurance:BCBSPoli cy Number: [id number] tom Date:2020-10-26 LUÍS RAMRÍEZ: [id number] [place] [address] [facility] 07/05/2024 Luís Ramírez: [place] [address] Primary Insurance:Adelaide pearson Number: Effective Date:6022-09-52Bwh n Name:LIBBY Puckett [id number], [place] [address]CB: Luís Ramírez: [id number] [place] [address] [facility] 06/15/2024 LUÍS RAMÍREZ: [place] [address]Bkz: (HP) Primary Insurance:BCBSPoli cy Number: [id number] tom Date:2020-10-26 LUÍS RAMÍREZ: [id number] [place] [address] [facility] 04/23/2024 LUÍS RAMÍREZ: [place] [address]Rar: (HP) Primary Insurance:BCBSPoli cy Number: [id number] tom Date:2020-10-26 LUÍS RAMÍREZ: [id number] [place] [address] [facility] 04/05/2024 LUÍS RAMÍREZ: [place] [address]Ymw: (HP) Primary Insurance:BCBSPoli cy Number: [id number] tom Date:2020-10-26 LUÍS RAMÍREZ: [id number] [place] [address] [facility] 03/15/2024 Luís Ramírez: [place] [address] Primary Insurance:AnthemPo lili Number: Effective Date:[id number] n Name:LIBBY Puckett [id number], [place] [address]TU: Luís WorrellB: [id number] [place] [address] [facility] 03/02/2024 LUÍS RAMÍREZ: [place] [address]Quv: (HP) Primary Insurance:BCBSPoli cy Number: [id number] tom Date:2020-10-26 LUÍS RAMÍREZ: [id number] [place] [address] [facility]
--- NOTE | 2025-01-26 08:37 | PM.CN ---
Consult Note: HPI Data of Consult Patient: known to practice within the last 3 years Requesting Physician: Jeanette Castro NP Primary Care Provider: ADELITA EPPERSON Consult Narrative Reason for consult: low back and left leg pain Narrative: Cas Calhoun a pleasant 44 year old male presents for evaluation and management of chronic low back pain, hx of lumbar stenosis and facet arthropathy, unresponsive to > 6 weeks of PT/HEP, heat, ice, tylenol, nsaids. Pt has noticed over the last month increasing left leg weakness, numbness, tingling as well as increasing low back pain. pain today 6/10 increasing to 10/10 with standing, walking, lifting, and ADLs. utilizing advil prn with minimal relief, stopped baclofen due to ineffectiviness. cc:: CC: Jeanette Castro NP Review of Systems ROS Musculoskeletal Reports: back pain and extremity pain PFSH PFSH Surgical History Hx of tonsillectomy ?Z90.89 - Acquired absence of other organs (ICD-10) History of tympanoplasty ?Z98.890 - Other specified postprocedural states (ICD-10) History of lumbar surgery ?Z98.890 - Other specified postprocedural states (ICD-10) Meds Home Medications and Allergies Home Medications ?Medication ?Instructions ?Recorded ?Confirmed ?Type thc gummies PO .qhs 07/03/23 History baclofen 10 mg tablet 10 mg PO .qhs 12/16/23 11/15/24 History Allergies Allergy/AdvReac Type Severity Reaction Status Date / Time No Known Drug Allergies Allergy Verified 11/15/24 09:45 Exam Constitutional Documenting provider has reviewed patient's vital signs: yes (asymptomatic HTN 154/103) Common normals: no apparent distress, oriented x3, healthy appearing, alert and well nourished General appearance: cooperative HENMT Common normals: normocephalic, hearing grossly normal bilaterally and moist oral mucous membranes Head and scalp: normocephalic Eye Common normals: PERRL Pupil: PERRL Neck & C-Spine Common normals: full ROM General: normal visual inspection Chest Common normals: inspection of chest normal Respiratory Common normals: normal respiratory effort, no retractions and no use of accessory muscles Back & Pelvis Lumbar spine/lower back: ROM limited, pain with ROM, lumbar spinal tenderness Lumbar spinal tenderness location: L2 and L3 and straight leg raise positive left Other: decreased left L4,5,S1 strength 4/5 in LLE and 5/5 in RLE Neuro Common normals: oriented x3 Sensorium/orientation: alert Psych Common normals: mental status grossly normal, thought process normal, cooperative, affect normal, speech normal and activity/motor behavior normal Speech: normal speech Thought process: normal thought process Results Additional Findings Additional findings: If on a controlled substance or opioids, I have checked an [place]AR[place] report on this patient and there are no aberrancies noted in the prescribing history.??If on a controlled substance or opioid a drug screen was completed and reviewed within the last year, and if there has not been a drug screen completed we ordered one today to monitor higher risk, state monitored pain medication use. As part of providing excellent, safe, comprehensive care, the following was completed at our patient's visit: 1. A medication reconciliation and review to ensure accurate knowledge of current/active medications, including asking our patients to inform us about any [id number] medications or herbal remedies/nutritional supplements/alternative remedies. 2. A review to specifically ensure our patients have had annual screening for screening for depression, screening for tobacco use, and screening for unhealthy alcohol use. For concerning screenings had a discussion with the patient, provided patient education, and recommended follow-up with primary care provider when appropriate. If patient noted with a risk of falling, they received education on strength, gait, and balance training to prevent future risk of falling. Portions of this note may have been carried over from the previous visit and updated as appropriate. Please note this office utilizes paper charting in addition to the electronic medical record. A list of current medications, vitals, and PMH is available there as the clinical staff outside of myself do not have access to [facility] charting during the clinic day operations. As part of providing quality comprehensive care the current medications, vitals, and PMH were reviewed in the paper chart. Assessment and Plan Assessment and Plan (1) Lumbar stenosis with neurogenic claudication: Assessment and Plan: The patient has had over 3 months of moderate to severe low back pain with functional impairment and inadequate response to conservative care including NSAIDS (unless there are contraindication such as concurrent blood thinners), multiple oral or topical pain medications, and home exercise program/physical therapy.? Patient has completed >6 weeks of guided home exercise program and/or formal physical therapy program without relief of their symptoms.? The Oswestry Disability Index was completed, and the patient scored a 29%.? (2) Lumbar spondylosis: (3) Myofascial pain: Plan repeat left L4-5 L5-S1 TFESI under fluoroscopy, prior injection provided at least 50% improvement greater than 3 months start zonegran 50mg BID, risks vs benefits reviewed f/u with PCP regarding chronic HTN. jaxson SOB, chest pain, headache, blurred vision, nausea/vomiting. pt has been monitoring at home and notes average BP 130s/100s continue HEP as tolerated f/u 2 weeks after injection
== END 2025-01-26 08:06 | disposition home or self-care (01) ==
LOC: PM 08:05
PROVIDERS: PCP Internal Medicine; Visit Provider Nurse Practitioner
DX: M48.062 Spinal stenosis, lumbar region with neurogenic claudication (principal); M47.816 Spondylosis without myelopathy or radiculopathy, lumbar region; M79.18 Myalgia, other site
CPT/HCPCS: G0463

== ENCOUNTER 2025-02-14 06:45 | Day surgery (SDC) | payer BC, SELFPAY ==
--- OUTSIDE RECORDS SUMMARY | 2025-02-14 06:48 | XMS_ITS | Clinical Summary ---
Author Organization [facility] Address [address] [place] [address] Phone Care Team Providers Care Plate Shear Operator Name Role Phone Paulino Paez MD Primary Care Provider [phone] Social History Tobacco Use Types Packs/Day Years Used Date Smoking Tobacco: Never Assessed Sex and Gender Information Value Date Recorded Sex Assigned at Not on file Legal Sex Male 8:44 PM EST Gender Identity Not on file Sexual Orientation Not on file Plan of Treatment Not on file Care Teams Plate Shear Operator Relationship Specialty Start Date End Date Paulino Paez MD [address] [place] [phone] PCP - General 09/29/17
--- OUTSIDE RECORDS SUMMARY | 2025-02-14 06:48 | XMS_ITS | Encounter Summary ---
Author Organization [facility] Address [address] [facility] [address] Care Team Providers Care Glass Belt Sander Name Role Phone Paulino Paez MD Primary Care Provider [phone] Paulino Paez MD Unavailable [phone] Encounter Details Date Type Department Care Team (Late Contact Info) Description 05/04/2023 Abstract [facility] [address] [facility] [address] [place] [address] Laurie Haley NP Social History Tobacco Use [...] 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[employer] , 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 on file Not on file Not on file documented as of this encounter Plan of Treatment Upcoming Encounters Date Type Department Care Team ([facility] Contact Info) Description 04/04/2025 8:15 AM EST Office Visit [facility] [address] [place] [phone] Paulino Paez MD [address] [place] [address] 06/21/2025 3:45 PM EST Office [facility] [address] [facility] [place] [phone] Al Chi DO [address] [place] [address] documented as of this encounter Visit Diagnoses Not on filedocumented in this encounter Care Teams Glass Belt Sander Relationship Specialty Start Date End Date Paulino Paez MD [address] [place] [phone] PCP - General Internal Medicine 11/06/22 Paulino Paez MD [address] [place] [address] PCP - [place] [employer] 06/27/23 documented as of this encounter
--- OUTSIDE RECORDS SUMMARY | 2025-02-14 06:48 | XMS_ITS | CCD ---
Author Organization [facility] Care Team Providers Care Casing Tier Name Role Phone Jennifer Muller Unavailable Unavailable Juan Francisco, Maroun Tanus Unavailable Unavailable Adelita Epperson Unavailable Unavailable Juan Francisco, Maroun Tanus Unavailable Unavailable Pelon Head Unavailable Unavail able Adelita Epperson Unavailable Unavailable Juan Francisco, Maroun Tanus Unavailable Unavailable Juan Francisco, Maroun Tanus Unavailable Unavailable Adelita Epeprson Unavailable Unavailable ADELITA EPPERSON Primary Care Unavailable Adelita Epperson Primary Care Provider Adelita Epperson Primary Care Provider [phone] Dereck Morrow Attending Provider [phone] LAKSHMIPATHY ., NARENDRANATH Attending Mell vailable LAKSHMIPATHY ., NARENDRANATH Admitting Mell vailable PATRICK, JOSE ROBERTO Consulting Unavailable DR ADELITA EPPERSON Primary Care [...] vailable LAKSHMIPATHY ., NARENDRANATH Consulting Mell vailable ZHOU, DR UREÑA Primary [...] Unavailable Adelita Epperson MD Primary Care Provider MD Adelita Epperson Primary Care Provider DO Manjinder Lynn Jr Attending Provider [phone] Adelita Epperson MD Unavailable AL MARIN Attending Unavailable ADELITA EPPERSON Attending Unavailable ADELITA EPPERSON Attending Unavailable TIFFANIE, WILFRIDO Attending Unavailabl e TIFFANIE, WILFRIDO Attending Unavailabl e TIFFANIE, WILFRIDO Attending Unavailabl e AL MARIN Attending Unavailable ANTONIO SOLOMON Attending Unavailable ADELITA EPPERSON Referring Unavailable ADELITA EPPERSON Attending Unavailable ERIN CHIRINOS Attending Unavailable Chloé CID, Andrius Gutierrez Attending Unavailable Chloé CID, Andrius Brenda Attending Unavailable Chloé CID, Andrius Vdebi Attending Unavailable Chloé CID, Andrius Vdebi Attending Unavailable Chloé CID, Andrius Vdebi Attending Unavailable Chloé CID, Andrius Brenda Attending Unavailable Adelita Epperson MD Primary Care Provider Davy Ornelas DO Emergency Provider Manjinder Lynn DO Attending Provider [phone] Davy Ornelas Admitting UnavailDavy Chambers Attending UnavailAdelita Judge Primary Care Unavailable Manjinder Lynn Jr Admitting Unavailable Manjinder Lynn Jr Attending Adelita Cosme Primary Care Unavailable Unavailable Unavailable Unavailable Medications Current Medications Medication Drug Class(es) Dates Sig (Normalized) Sig (Original) acetaminophen 250 mg / aspirin 250 mg / caffeine 65 mg oral tablet (3 sources) Platelet Aggregation Inhibitor, Nonsteroidal Anti-inflammatory Drug, Central Nervous System Stimulant, Methylxanthine Start: 03-28-2017 take 2 tablets by mouth every four to six hours as needed for pain acetaminophen 325 mg / HYDROcodone bitartrate 5 mg oral tablet (1 source) Opioid Agonist Start: 05-27-2017 HYDROcodone-aceta minophen (NORCO) 5-325 MG per tablet Cannabinoids (medical cannabis) (20 sources) Cannabinoids (medical cannabis) Active Cannabinoids (me dical cannabis) Medicinal Marijuana Active Cannabinoids (me dical cannabis) Medicinal Marijuana 0 Active gabapentin 100 mg oral capsule (1 source) Anti-epileptic Agent Start: 01-31-2025 take 1 tablet by mouth twice daily ibuprofen 800 mg oral tablet (20 sources) Nonsteroidal Anti-inflammatory Drug take 1 tablet by mouth every six hours as needed ibuprofen 800 MG tablet Take 800 mg by mouth every 6 (six) hours if needed Active ketoconazole 20 mg/ml topical cream (2 sources) Azole Antifungal Start: 10-08-2024 End: 11-07-2024 ketoconazole (NIZOral) 2 % cream Indications: Tinea [...] tablet (20 sources) Sympathomimetic Amine Anorectic Start: 07-19-2024 take 1 tablet by mouth before mealtime [...] 30 tablet 01/13/2024 Active Start: 12-05-2023 End: 11-27-2024 take 1 tablet by mouth before mealtime [...] (2 sources) Patient encounter status; Translations: [Other mcfp (current) drug therapy] 04-05-2024 Episodic Other connective [...] of back] Onset: 10-04-2021 Resolved: 02-24-2023 Episodic Sprains and strains (1 source) Strain of muscle, fascia and tendon of lower back, initial encounter; Translations: [Strain of muscle, fascia and tendon of lower back, initial encounter] Onset: 02-02-2025 Episodic Substance-related disorders (2 sources) Tobacco dependence caused by cigarettes; Translations: [Nicotine dependence, cigarettes, uncomplicated] 04-05-2024 Chronic Unclassified (1 source) Condctv hear loss, uni, left ear, w unrestr hear cntra side / H90.12(ICD-10) Onset: 09-29-2017 Unclassified (1 source) Unspecified cholesteatoma, left ear / H71.92(ICD-10) Onset: 09-29-2017 Unclassified (1 source) LOW BACK PAIN, UNSPECIFIED; Translations: [LOW BACK PAIN, UNSPECIFIED] Onset: 04-02-2022 Unclassified (1 source) Low back pain, unspecified; Translations: [Low back pain, unspecified] Onset: 01-31-2025 Past or Other Problems Problem Classification Problem [...] Test Name Value Interpretation Reference Range Facility X-ray reportOrdered By: Mushtaq Harrington on 02-02-2025 Study report [facility] [place] [address] XRay Report Signed Patient: Cas Calhoun MR#: [id number] : 1980 Acct:[id number] Age/Sex: 44 / M ADM Date: 5 Loc: CO Room: Type: [facility] Attending Dr: Manjinder Lynn Jr, DO Copies to: Manjinder Lynn DO~ Ordering Provider: Manjinder Lynn DO Date of Service: 02/02/25 XR/XR knee BI 4V: [facility] BILATERAL KNEE INJURY XR knee BI 4V 02/02/2025 9:12 AM SIGNS AND SYMPTOMS: ^[facility] BILATERAL KNEE INJURY, fall at work injuring and bruising knees bilaterally, left greater than right PROTOCOL: Frontal, lateral, and oblique radiographs of the bilateral knees COMPARISON: None FINDINGS: There is mild narrowing of the medial weightbearing joint space bilaterally. There is mild patellofemoral joint space loss bilaterally. There is enthesophyte formation along the poles of the patella bilaterally. No evidence of joint effusion. Mild prepatellar soft tissue swelling is noted bilaterally. No fracture. XR/XR knee BI 4V IMPRESSION: No fracture. Mild prepatellar soft tissue swelling is noted bilaterally. No joint effusion. Impression dictated by: Mushtaq Harrington M.D. 02/02/2025 9:14 AM Dictation Location: [place] [address] Transcribed By: [facility] 02/02/25913 Dictated By: Mushtaq Harrington II, MD 02/02/25910 Signed By: 02/02/25913 [facility] Work Phone: XR knee BI 4Von 02-02-2025 XR knee BI 4V [facility] [place] [address] XRay Report Signed Patient: Cas Calhoun MR#: [id number] : 1980 Acct:[id number] Age/Sex: 44 / M ADM Date: 02/02/25 Loc: CO Room: Type: [facility] CLI Attending Dr: Manjinder Lynn Jr, DO Copies to: Manjinder Lynn DO Ordering Provider: Manjinder Lynn DO Date of Service: 02/02/25 XR/XR knee BI 4V: [facility] BILATERAL KNEE INJURY XR knee BI 4V 02/02/2025 9:12 AM SIGNS AND SYMPTOMS: [facility] BILATERAL KNEE INJURY, fall at work injuring and bruising knees bilaterally, left greater than right PROTOCOL: Frontal, lateral, and oblique radiographs of the bilateral knees COMPARISON: None FINDINGS: There is mild narrowing of the medial weightbearing joint space bilaterally. There is mild patellofemoral joint space loss bilaterally. There is enthesophyte formation along the poles of the patella bilaterally. No evidence of joint effusion. Mild prepatellar soft tissue swelling is noted bilaterally. No fracture. XR/XR knee BI 4V IMPRESSION: No fracture. Mild prepatellar soft tissue swelling is noted bilaterally. No joint effusion. Impression dictated by: Mushtaq Harrington M.D. 02/02/2025 9:14 AM Dictation Location: [place] [address] Transcribed By: [facility] 02/02/25913 Dictated By: Mushtaq Harrington II, MD 02/02/25910 Signed By: 02/02/25 0914 Normal [facility] XR LUMBAR SPINE 6V W BENDING on 09-23-[address] [address] XRay Report Signed Patient: CAS CALHOUN MR#: [id number] : 1980 Acct:[id number] Age/Sex: 44 / M ADM Date: 09/23/24 Loc: RAD Attending Dr: Margie Castro NP Ordering Physician: Margie Castro NP Date of Service: 09/23/24 Procedure(s): XR lumbar spine 6V w bending Accession Number(s): [id number] cc: Margie Castro NP; ADELITA EPPERSON [place] [id number] Patient Name: CAS CALHOUN MRN: [facility]:[id number] date: 1980 Sex: M Assigned Patient Location: RAD Current Patient Location: RAD Accession/Order Number: [id number] Exam Date: 09/23/2024 15:44 Report Date: 09/23/2024 15:46 At the request of: MARGIE CASTRO NP Procedure: XR lumbar spine 6V [...] Salazar M.D. 09/23/2024 3:46 PM Dictation Location: [place] [address] Electronically authenticated by: [id number] Y Date: 09/23/2024 15:46 Dictated By: Pelon Salazar D.O. Signed By: 09/23/24 1549 DD/ 1546 TD/TT: Tree Scout: [facility] Radiology, Radiologist, MD - 09/23/2024 The [place] [id number] XRay Report Signed Patient: CAS CALHOUN MR#: [id number] : 1980 Acct:[id number] Age/Sex: 44 / M ADM Date: 09/23/24 Loc: RAD Attending Dr: Margie Castro NP Ordering Physician: Margie Castro NP Date of Service: 09/23/24 Procedure(s): XR lumbar spine 6V w bending Accession Number(s): [id number] cc: Margie Castro VICE CHAIR; ADELITA EPPERSON [place] [address] Patient Name: CAS CALHOUN MRN: [id number] date: 1980 Sex: M Assigned Patient Location: RAD Current Patient Location: RAD Accession/Order Number: [id number] Exam Date: 09/23/2024 15:44 Report Date: 09/23/2024 15:46 At the request of: MARGIE CASTRO NP Procedure: XR lumbar spine 6V [...] Salazar M.D. 09/23/2024 3:46 PM Dictation Location: [place] [address] Electronically authenticated by: [id number] Y Date: 09/23/2024 15:46 Dictated By: Pelon Salazar D.O. Signed By: 09/23/24 1549 DD/ 1546 TD/TT: Tree Scout: [facility] Radiology Study observation (narrative) [facility] XR LUMBAR SPINE 6V W BENDING Ordered By: Radiologist Radiology on 09-23-2024 [facility] Work Phone: Alanine aminotransferase [En zymatic activity/volume] in Serum or PlasmaOrdered By: Manjinder Lynn on 09-03-2023 ALT [Catalytic activity/Vol] 29 U/L 7-52 [facility] Albumin [Mass/volume] in Ser um or Plasma by Bromocresol green (BCG) dye binding methoOrdered By: Manjinder Lynn on 09-03-2023 Albumin BCG dye [Mass/Vol] 4.6 g/dL 3.5-5.7 [facility] Alkaline phosphatase [Enzyma tic activity/volume] in Serum or PlasmaOrdered By: Manjinder Lynn on 09-03-2023 ALP [Catalytic activity/Vol] 75 U/L 34-104 [facility] Aspartate aminotransferase [ Enzymatic activity/volume] in Serum or PlasmaOrdered By: Manjinder Lynn on 09-03-2023 AST [Catalytic activity/Vol] 20 U/L 13-39 [facility] Basophils Auto (Bld) [#/Vol] Ordered By: Manjinder Lynn on 09-03-2023 Basophils (Bld) [#/Vol] 0.1 10*3/uL 0.0-0.2 [facility] Basophils/100 WBC Auto (Bld) Ordered By: Manjinder Lynn on 09-03-2023 Basophils/100 WBC (Bld) 1.1 % . [facility] Bilirubin.total [Mass/volume ] in Serum or PlasmaOrdered By: Manjinder Lynn on 09-03-2023 Bilirubin [Mass/Vol] 1.3 mg/dL 0.3-1.0 [facility] Comment on above: Samples from patient s who have taken Naproxen have shown spurious elevation in Total Bilirubin levels. A metabolite of Naproxen, O-desmethylnaproxen, has been shown to interfere with the Tracy-María method for measuring Total Bilirubin. Calcium [Mass/volume] in Ser um or PlasmaOrdered By: Manjinder Lynn on 09-03-2023 Calcium [Mass/Vol] 9.5 mg/dL 8.6-10.3 [facility] Carbon dioxide, total [Moles /volume] in Serum or PlasmaOrdered By: Manjinder Lynn on 09-03-2023 CO2 [Moles/Vol] 27.6 mmol/L 21.0-31.0 [facility] Chloride [Moles/volume] in S cheryl or PlasmaOrdered By: Manjinder Lynn on 09-03-2023 Chloride [Moles/Vol] 103 mmol/L 98-107 [facility] Creatinine [Mass/volume] in Serum or PlasmaOrdered By: Manjinder Lynn on 09-03-2023 Creatinine [Mass/Vol] 1.22 mg/dL 0.70-1.30 [facility] Eosinophils Auto (Bld) [#/Vo l]Ordered By: Manjinder Lynn on 09-03-2023 Eosinophils (Bld) [#/Vol] 0.4 10*3/uL 0.0-0.45 [facility] Eosinophils/100 WBC Auto (Bl d)Ordered By: Manjinder Lynn on 09-03-2023 Eosinophils/100 WBC (Bld) 4.9 % . [facility] Erythrocyte distribution wid th Auto (RBC) [Ratio]Ordered By: Manjinder Lynn on 09-03-2023 Erythrocyte distribution width (RBC) [Ratio] 13.4 % 12.0-14.8 [facility] Globulin Calc (S) [Mass/Vol] Ordered By: Manjinder Lynn on 09-03-2023 Globulin (S) [Mass/Vol] 2.2 g/dL [facility] Glucose [Mass/volume] in Ser um or PlasmaOrdered By: Manjinder Lynn on 09-03-2023 Glucose [Mass/Vol] 117 mg/dL 70-100 [facility] Comment on above: ADA recommended refe rence rangeRandom Glucose Reference Range is dependent on time and content of last meal. Glucose of more than 200 mg/dL in a nonstressed, ambulatory subject supports the diagnosis of Diabetes Mellitus. Hematocrit Auto (Bld) [Volum e fraction]Ordered By: Manjinder Lynn on 09-03-2023 Hematocrit (Bld) [Volume fraction] 43.4 % 38.8-50.0 [facility] Hemoglobin [Mass/volume] in BloodOrdered By: Manjinder Lynn on 09-03-2023 Hemoglobin (Bld) [Mass/Vol] 15.1 g/dL 13.0-17.0 [facility] Leukocytes [#/volume] correc padma for nucleated erythrocytes in Blood by Automated counOrdered By: Manjinder Lynn on 09-03-2023 WBC corrected for nucl RBC Auto (Bld) [#/Vol] 9.2 10*3/uL 4.1-10.5 [facility] Lymphocytes Auto (Bld) [#/Vo l]Ordered By: Manjinder Lynn on 09-03-2023 Lymphocytes (Bld) [#/Vol] 3.5 10*3/uL 1.00-4.8 [facility] Lymphocytes/100 WBC Auto (Bl d)Ordered By: Manjinder Lynn on 09-03-2023 Lymphocytes/100 WBC (Bld) 38.0 % . [facility] MCH Auto (RBC) [Entitic mass ]Ordered By: Manjinder Lynn on 09-03-2023 MCH (RBC) [Entitic mass] 30.6 pg 27.5-35.2 [facility] MCHC Auto (RBC) [Mass/Vol]Or dered By: Manjinder Lynn on 09-03-2023 MCHC (RBC) [Mass/Vol] 34.7 g/dL 32.5-35.6 [facility] MCV Auto (RBC) [Entitic vol] Ordered By: Manjinder Lynn on 09-03-2023 MCV (RBC) [Entitic vol] 88.2 fL 83.5-101 [facility] Monocytes Auto (Bld) [#/Vol] Ordered By: Manjinder Lynn on 09-03-2023 Monocytes (Bld) [#/Vol] 0.7 10*3/uL 0.0-0.8 [facility] Monocytes/100 WBC Auto (Bld) Ordered By: Manjinder Lynn on 09-03-2023 Monocytes/100 WBC (Bld) 7.1 % . [facility] Neutrophils Auto (Bld) [#/Vo l]Ordered By: Manjinder Lynn on 09-03-2023 Neutrophils (Bld) [#/Vol] 4.5 10*3/uL 1.8-7.7 [facility] Neutrophils/100 WBC Auto (Bl d)Ordered By: Manjinder Lynn on 09-03-2023 Neutrophils/100 WBC (Bld) 48.9 % . [facility] No Panel InformationOrdered By: Manjinder Lynn on 09-03-2023 Estimated GFR (CKD-EPI) > 60.0 mL/Min [facility] Creatinine Clearance (Chem N/A [facility] Nucleated erythrocytes [Pres ence] in Blood by Automated countOrdered By: Manjinder Lynn on 09-03-2023 Nucleated RBC Auto Ql (Bld) 0.2 /100{WBC} 0-0.5 [facility] Platelet mean volume Auto (B ld) [Entitic vol]Ordered By: Manjinder Lynn on 09-03-2023 Platelet mean volume (Bld) [Entitic vol] 9.6 fL 6.6-10.1 [facility] Platelets Auto (Bld) [#/Vol] Ordered By: Manjinder Lynn on 09-03-2023 Platelets (Bld) [#/Vol] 230 10*3/uL 150-450 [facility] Potassium [Moles/volume] in Serum or PlasmaOrdered By: Manjinder Lynn on 09-03-2023 Potassium [Moles/Vol] 4.0 mmol/L 3.5-5.1 [facility] Protein [Mass/volume] in Ser um or PlasmaOrdered By: Manjinder Lynn on 09-03-2023 Protein [Mass/Vol] 6.8 g/dL 6.4-8.9 [facility] RBC Auto (Bld) [#/Vol]Ordere d By: Manjinder Lynn on 09-03-2023 RBC (Bld) [#/Vol] 4.92 10*6/uL 3.90-5.60 [facility] Serum or plasma albumin/glob ulin mass ratioOrdered By: Manjinder Lynn on 09-03-2023 Albumin/Globulin [Mass ratio] 2.1 {ratio} [facility] Serum or plasma anion gap de terminationOrdered By: Manjinder Lynn on 09-03-2023 Anion gap [Moles/Vol] 11.4 mmol/L 6.0-15.0 [facility] Sodium [Moles/volume] in Ser um or PlasmaOrdered By: Manjinder Lnyn on 09-03-2023 Sodium [Moles/Vol] 138 mmol/L 136-145 [facility] Urea nitrogen [Mass/volume] in Serum or PlasmaOrdered By: Manjinder Lynn on 09-03-2023 Urea nitrogen [Mass/Vol] 11 mg/dL 7-25 [facility] WBC Auto (Bld) [#/Vol]Ordere d By: Manjinder Lynn on 09-03-2023 WBC (Bld) [#/Vol] 9.2 10*3/uL 4.1-10.5 [facility] Complete Blood Counton 08-07 Erythrocyte distribution width (RBC) [Ratio] 13.0 % Normal 11.0-15.0 [facility] [employer] Comment on above: Performed By: #### L IPD, CBC, CMP #### [facility] [address] [place], [place] [id number] Hematocrit (Bld) [Volume fraction] 46.2 % Normal 38.5-50.0 [facility] Specialist Comment on above: Performed By: #### L IPD, CBC, CMP #### [facility] [address] [place], [place] [id number] Hemoglobin (Bld) [Mass/Vol] 15.6 g/dL Normal 13.0-17.1 [facility] Specialist Comment on above: Performed By: #### L IPD, CBC, CMP #### [facility] [address] [place], [place] [id number] MCH (RBC) [Entitic mass] 29.8 pg Normal 27.0-33.0 [facility] Specialist Comment on above: Performed By: #### L IPD, CBC, CMP #### [facility] [address] [place], [place] [id number] MCHC (RBC) [Mass/Vol] 33.8 g/dL Normal 32.0-36.0 [facility] Comment on above: Performed By: #### L IPD, CBC, CMP #### [facility] [address], [place] [id number] MCV (RBC) [Entitic vol] 88 fL Normal 80-100 [facility] Specialist Comment on above: Performed By: #### L IPD, CBC, CMP #### [facility] [address] [place], [place] [id number] Platelet mean volume (Bld) [Entitic vol] 11.20 fL Normal 7.50-12.50 [facility] Specialist Comment on above: Performed By: #### L IPD, CBC, CMP #### [facility] [address] [place], [place] [id number] Platelets (Bld) [#/Vol] 231 10*3/uL Normal 140-400 [facility] [employer] Comment on above: Performed By: #### L IPD, CBC, CMP #### [facility] [address] [place], [place] [id number] RBC (Bld) [#/Vol] 5.24 10*6/uL Normal 4.20-5.80 [facility] [employer] Comment on above: Performed By: #### L IPD, CBC, CMP #### [facility] [address] [place], [place] [id number] RDW-SD 42.1 fL Normal 37.0-50.0 [facility] [employer] Comment on above: Performed By: #### L IPD, CBC, CMP #### [facility] [address] [place], [place] [id number] WBC (Bld) [#/Vol] 9.2 10*3/uL Normal 3.8-11.0 [facility] [employer] Comment on above: Performed By: #### L IPD, CBC, CMP #### [facility] [address] [place], [place] [id number] [facility] 08-07-2021 Albumin [Mass/Vol] 4.7 g/dL Normal 3.6-5.1 [facility] [employer] Comment on above: Performed By: #### L IPD, CBC, CMP #### [facility] [address] [place], [place] [id number] Albumin/Globulin [Mass ratio] 2.4 {ratio} Normal 1.0-2.5 [facility] [employer] Comment on above: Performed By: #### L IPD, CBC, CMP #### [facility] [address] [place], [place] [id number] ALP [Catalytic activity/Vol] 76 U/L Normal 40-129 [facility] [employer] Comment on above: Performed By: #### L IPD, CBC, CMP #### [facility] [address] [place], [place] [id number] ALT [Catalytic activity/Vol] 52 U/L High 9-46 [facility] [employer] Comment on above: Result Comment: 03/28 Female reference range changed. Performed By: #### L IPD, CBC, CMP #### [facility] [address] [place], [place] [id number] Anion gap [Moles/Vol] 18 mmol/L Normal 12-20 [facility] Comment on above: Result Comment: Kylee ctive 05/03/2019 reference range changed. Performed By: #### L IPD, CBC, CMP #### [facility] [address] [place], [place] [id number] AST [Catalytic activity/Vol] 36 U/L Normal 10-40 [facility] Comment on above: Performed By: #### L IPD, CBC, CMP #### [facility] [address], [place] [id number] Bilirubin [Mass/Vol] 1.27 mg/dL High 0.30-1.20 [facility] Comment on above: Performed By: #### L IPD, CBC, CMP #### [facility] [address] [place], [place] [id number] BUN/CREA 10 Ratio Normal 6-22 [facility] Comment on above: Performed By: #### L IPD, CBC, CMP #### [facility] [address], [place] [id number] Calcium [Mass/Vol] 9.6 mg/dL Normal 8.6-10.2 [facility] Comment on above: Performed By: #### L IPD, CBC, CMP #### [facility] [address] [place], [place] [id number] Chloride [Moles/Vol] 104 mmol/L Normal 98-107 [facility] Comment on above: Performed By: #### L IPD, CBC, CMP #### [facility] [address] [place], [place] [id number] CO2 [Moles/Vol] 22 mmol/L Normal 20-31 [facility] Comment on above: Performed By: #### L IPD, CBC, CMP #### [facility] [address] [place], [place] [id number] Creatinine [Mass/Vol] 1.0 mg/dL Normal 0.7-1.4 [facility] Comment on above: Performed By: #### L IPD, CBC, CMP #### [facility] [address], [place] [id number] eGFRAA 96 mL/min/1.73m2 Normal >60 [facility] Specialist Comment on above: Performed By: #### L IPD, CBC, CMP #### [facility] [address] [place], [place] [id number] eGFRNAA 80 mL/min/1.73m2 Normal >60 [facility] Specialist Comment on above: Performed By: #### L IPD, CBC, CMP #### [facility] [address] [place], [place] [id number] Globulin (S) [Mass/Vol] 2.0 g/dL Normal 1.9-3.7 [facility] Specialist Comment on above: Performed By: #### L IPD, CBC, CMP #### [facility] [address] [place], [place] [id number] Glucose [Mass/Vol] 76 mg/dL Normal 65-99 [facility] [employer] Comment on above: Result Comment: For FASTING Glucose --- ADA reference ranges: Normal 65-99 mg/dl Prediabetes 100-125 Diabetes >/= 126 Performed By: #### L IPD, CBC, CMP #### [facility] [address] [place], [place] [id number] Potassium [Moles/Vol] 4.7 mmol/L Normal 3.5-5.5 [facility] Specialist Comment on above: Result Comment: Spec imen is hemolyzed. Results may be affected. Performed By: #### L IPD, CBC, CMP #### [facility] [address] [place], [place] [id number] Protein [Mass/Vol] 6.7 g/dL Normal 6.1-8.1 [facility] [place] [employer] Comment on above: Performed By: #### L IPD, CBC, CMP #### [facility] [address] [place], [place] [id number] Sodium [Moles/Vol] 139 mmol/L Normal 135-146 [facility] [place] [employer] Comment on above: Performed By: #### L IPD, CBC, CMP #### [facility] [address] [place], [place] [id number] Urea nitrogen [Mass/Vol] 11 mg/dL Normal 7-25 [place] [employer] Comment on above: Performed By: #### L IPD, CBC, CMP #### [facility] [address] [place], [place] [id number] Lipid Panelon 08-07-2021 Cholesterol [Mass/Vol] 154 mg/dL Normal 125-200 [facility] on above: Result Comment: Low risk < 200mg/dL Borderline risk 201-239 mg/dl High risk > or equal to 240 Performed By: #### L IPD, CBC, CMP #### [facility] [address] [place], [place] [id number] Cholesterol in HDL [Mass/Vol] 40 mg/dL Low >40 [facility] Specialist Comment on above: Result Comment: High Cardiovascular Risk HDL <40 mg/dL Low Cardiovascular Risk HDL > or equal to 60 mg/dl Performed By: #### L IPD, CBC, CMP #### [facility] [address] [place], [place] [id number] Cholesterol in LDL [Mass/Vol] 88 mg/dL Normal [facility] Comment on above: Result Comment: LDL ATP III CLASSIFICATION LDL less than 100 mg/dl Optimal LDL 100-129 mg/dl Near or above optimal LDL 130-159 Borderline high LDL 160-189 High LDL greater than 189 mg/dl Very High Performed By: #### L IPD, CBC, CMP #### [facility] [address] [place], [place] [id number] Cholesterol in VLDL [Mass/Vol] 26 mg/dL Normal [facility] Comment on above: Performed By: #### L IPD, CBC, CMP #### [facility] [address] [place], [place] [id number] Cholesterol.total/Choles terol in HDL [Mass ratio] 4 {ratio} Normal [facility] Comment on above: Performed By: #### L IPD, CBC, CMP #### [facility] [address] [place], [place] [id number] Triglyceride [Mass/Vol] 129 mg/dL Normal 30-[facility] Comment on above: Result Comment: TRIG ATPIII CLASSIFICATIONS TRIG less than 150 mg/dl Normal TRIG 150-199 mg/dl Borderline High TRIG 200-500 mg/dl High TRIG greather than 500 mg/dl Very High Performed By: #### L IPD, CBC, CMP #### [facility] [address] [place], [place] [id number] NR MR L-SPINE WO/W CONTRASTo n 01-13-2019 NR MR L-SPINE WO/W CONTRAST Patient Name: CAS CALHOUN STUDY: MR L-SPINE WO/W CONTRAST; 01/13/2019 10:05 am INDICATION: Radiculopathy, lumbar region. History of laminectomy. Right leg pain and numbness. COMPARISON: None. ACCESSION NUMBER(S): [id number] ORDERING CLINICIAN: ADELITA HENRY TECHNIQUE: Multisequential MR [...] Electronically signed by: BJ MUNGUIA MD Normal [facility] XR LUMBAR SPINE (MIN 4 VIEWS )on 12-17-2018 XR LUMBAR SPINE (MIN 4 VIEWS) Radiology exam is complete. No Radiologist dictation. Please follow up with ordering provider. Final result Normal [facility] Radiology exam is complete. No Radiologist dictation. Please follow up with ordering provider. [facility], [place] Established Visit (Otolaryng ology)on 03-02-2018 Established Visit (Otolaryngology) Chief ComplaintNew patient suspected cholesteatoma History of Present IllnessHere today for mastoid bowl cleaning and follow up. Denies any interval otologic complaints since last being seen. Recall: 37 year old male referred by Dr. Head. [place] had [place] chronically draining ear and underwent [...] and interviewed the patient along with Dr Carosn I agree with the plan outlined above. Patient Discussion/SummaryWel come to Dr. Padilla clinic. We are here to assist you through your ENT care at [facility].Dr. Chicas is an Ear surgeon. This means that he specializes in taking care of patients with complex ear problems.Dr. Chicas's office number is [phone]. While you may see him at a satellite office, she has a team committed to help meet your healthcare needs at [facility]'s main campus. This number is the most direct way to communicate with the office.Audra is Dr. Padilla laboratory secretary and she answers the office phone [...] may include dieticians, social workers, speech therapists, delicatessen manager, neurologist, and physical therapist. Dr. Chicas will provide these referrals as needed. Please let him know if you would like to request a specific referral.For your convenience, Dr. Chicas sees patients at several [facility] locations including [facility], [facility], and [facility]. While we try to make your [...] Mar 02 2018 2:05PM EST (Author) Normal [facility] Initial Visit (Otolaryngolog y)on 09-29-2017 Initial Visit (Otolaryngology) Chief ComplaintNew patient suspected cholesteatoma History of Present Z[age]rmlbb34 year old male referred by Dr. Head. [place] had a chronically draining ear and underwent [...] AM Vitals Vital Signs Recorded: 29Sep2017 11:23AMHeart Zfhj29Retxxvik263Kvch flpsi93Ksqjhn5 ft 2 auQmpzip681 lb BMI Onstxollot32.65BSA Calculated2.59 Physical ExamCONSTITUTIONAL: No acute distressVOICE: No [...] assist you through your ENT care at [facility].Dr. Chicas is an Ear surgeon. This means that he specializes in taking care of patients with complex ear problems.Dr. Chicas's office number is [phone]. While you may see him at a satellite office, she has a team committed to help meet your healthcare needs at [facility] main campus. This number is the most direct way to communicate with the office.Audra is Dr. Padilla laboratory secretary and she answers the office phone [...] may include dieticians, social workers, speech therapists, delicatessen manager, neurologist, and physical therapist. Dr. Chicas will provide these referrals as needed. Please let him know if you would like to request a specific referral.For your convenience, Dr. Chicas sees patients at several [facility] locations including [facility], [facility], and [facility]. While we try to make your [...] ACTIVE -Retrospective By Protocol Authorization Ordered Normal [facility] Vital Signs Date Time Vital Sign Value Performing Clinician Facility 01-31-2025 01:50-0400 Diastolic blood pressure 88 mm[Hg] Adelita Epperson MD Work Phone: [facility] 01-31-2025 01:50-0400 Heart rate 84 /min Adelita Epperson MD Work Phone: [facility] 01-31-2025 01:50-0400 Respiratory rate 16 /min Adelita Epperson MD Work Phone: [facility] 01-31-2025 01:50-0400 SaO2% (BldA) [Mass fraction] 98 % Adelita Epperson MD Work Phone: [facility] 01-31-2025 01:50-0400 Systolic blood pressure 136 mm[Hg] Adelita Epperson MD Work Phone: [facility] 01-31-2025 00:13-0400 Body height 185.42 cm Adelita Epperson MD Work Phone: [facility] 01-31-2025 00:13-0400 Body temperature 98.5 [degF] Adelita Epperson MD Work Phone: [facility] 01-31-2025 00:13-0400 Body weight 136.07 kg Adelita Epperson MD Work Phone: [facility] 08-25-2024 09:36-0400 Diastolic blood pressure 70 mm[Hg] Erin Risaliti VICE CHAIR Work Phone: [facility] 08-25-2024 09:36-0400 Heart rate 78 /min Erin Risaliti VICE CHAIR Work Phone: [facility] 08-25-2024 09:36-0400 SaO2% (BldA) [Mass fraction] 98 % Erin Risaliti VICE CHAIR Work Phone: [facility] 08-25-2024 09:36-0400 Systolic blood pressure 120 mm[Hg] Erin Risaliti VICE CHAIR Work Phone: [facility] 08-09-2024 13:01-0400 Body height 188 cm Adelita Epperson MD Work Phone: [facility] 08-09-2024 13:01-0400 Body mass index (BMI) [Ratio] 36.85 kg/m2 Adelita Epperson MD Work Phone: [facility] 08-09-2024 13:01-0400 Body weight 130.18 kg dAelita Epperson MD Work Phone: [facility] 08-09-2024 13:01-0400 Diastolic blood pressure 80 mm[Hg] Adelita Epperson MD Work Phone: [facility] 08-09-2024 13:01-0400 Heart rate 81 /min Adelita Epperson MD Work Phone: [facility] 08-09-2024 13:01-0400 SaO2% (BldA) [Mass fraction] 95 % Adelita Epperson MD Work Phone: [facility] 08-09-2024 13:01-0400 Systolic blood pressure 136 mm[Hg] Adelita Epperson MD Work Phone: [facility] 06-15-2024 15:36-0500 Body height 188 cm Al Marin DO Work Phone: [facility] 06-15-2024 15:36-0500 Body mass index (BMI) [Ratio] 36.59 kg/m2 Al Marin DO Work Phone: [facility] 06-15-2024 15:36-0500 Body weight 129.28 kg Al Marin DO Work Phone: [facility] 04-05-2024 07:58-0500 Body height 188 cm Adelita Epperson MD Work Phone: [facility] 04-05-2024 07:58-0500 Body mass index (BMI) [Ratio] 36.59 kg/m2 Adelita Epperson MD Work Phone: [facility] 04-05-2024 07:58-0500 Body weight 129.28 kg Adelita Epperson MD Work Phone: [facility] 04-05-2024 07:58-0500 Diastolic blood pressure 60 mm[Hg] Adelita Epperson MD Work Phone: [facility] 04-05-2024 07:58-0500 Heart rate 90 /min Adelita Epperson MD Work Phone: [facility] 04-05-2024 07:58-0500 SaO2% (BldA) [Mass fraction] 98 % Adelita Epperson MD Work Phone: [facility] 04-05-2024 07:58-0500 Systolic blood pressure 126 mm[Hg] Adelita Epperson MD Work Phone: [facility] Healthcare Encounters Encounter Date Encounter Type Care Provider Facility Start: 02-02-2025 End: 02-02-2025 Patient encounter procedure Manjinder Lynn DO [facility] [address] Work Phone: Start: 02-02-2025 End: 02-02-2025 ambulatory Adelita Epperson MD Work Phone: [facility] Work Phone: Start: 01-31-2025 End: 01-31-2025 Emergency department patient visit Adelita Epperson MD Work Phone: -Emergency Room Work Phone: Start: 11-23-2024 End: 11-23-2024 Bamboo flowsheet Wilfrido Moreno DPM Work Phone: [facility] Start: 11-23-2024 End: 11-23-2024 Bamboo flowsheet Wilfrido Moreno DPM Work Phone: [facility] [place] [facility] Start: 11-23-2024 End: 11-23-2024 Office outpatient visit 15 minutes Wilfrido Moreno DPM Work Phone: [facility] [place] [facility] Comment on above: Tinea pedis of both feet (Primary Dx) Start: 11-23-2024 End: 11-23-2024 ambulatory WILFRIDO MORENO Not Available Start: 11-15-2024 End: 11-15-2024 ambulatory Andrius Vytautas Giedraitis [facility] Start: 10-25-2024 End: 10-25-2024 ambulatory [facility] Start: 10-11-2024 End: 10-11-2024 ambulatory [facility]as [facility]ieditis [facility] Start: 10-08-2024 End: 10-08-2024 Bamboo flowsheet Wilfrido Moreno DPM Work Phone: [facility] Start: 10-08-2024 End: 10-08-2024 Bamboo flowsbryant Moreno DPM Work Phone: [facility] Start: 10-08-2024 End: 10-08-2024 Office outpatient visit 25 minutes Wilfrido Moreno DPM Work Phone: [facility] Comment on above: Ingrown toenail [...] Bamboo flowsheet Wilfrido Moreno DPM Work Phone: [facility] Start: 09-15-2024 End: 09-15-2024 Bamboo flowsheet Wilfrido Moreno DPM Work Phone: [facility] Start: 09-15-2024 End: 09-15-2024 Office outpatient visit 25 minutes Wilfrido Moreno DPM Work Phone: [facility] Comment on above: Ingrown toenail (Nicolasa cal Dx); Bilateral foot pain Start: 09-15-2024 End: 09-15-2024 ambulatory WILFRIDO MORENO Not Available Start: 08-25-2024 End: 08-25-2024 Office outpatient visit 15 minutes Erin Chirinos NP Work Phone: [facility] Comment on above: Groin abscess (Prima ry Dx); Cellulitis of groin Start: 08-25-2024 End: 08-25-2024 ambulatory ADELITA EPPERSON Not Available Start: 08-09-2024 End: 08-09-2024 Office outpatient visit 15 minutes Adelita Epperson MD Work Phone: [facility] Comment on above: Cellulitis of abdomi nal wall (Primary Dx); Abscess Start: 08-09-2024 End: 08-09-2024 ambulatory ADELITA EPPERSON Not Available Start: 07-05-2024 End: 07-05-2024 ambulatory Laura Luevano MD Facility:[facility] Start: 06-15-2024 End: 06-15-2024 Office outpatient visit 15 minutes Al Marin DO Work Phone: [facility] Comment on above: History of cholestea shayla (Primary Dx); Chronic mastoiditis of left side; Hearing loss of left ear, unspecified hearing loss type Start: 06-15-2024 End: 06-15-2024 ambulatory AL MARIN Not Available Start: 05-30-2024 End: 05-31-2024 Refill Adelita Epperson MD Work Phone: [facility] Comment on above: Obesity (BMI 30-39.9 ) Start: 04-23-2024 End: 04-23-2024 ambulatory ERIN R TARAN Not Available Start: 04-07-2024 End: 04-08-2024 Refill Adelita Epperson MD Work Phone: [facility] Comment on above: Obesity (BMI 30-39.9 ) Start: 04-05-2024 End: 04-05-2024 Office outpatient visit 25 minutes Adelita Epperson MD Work Phone: [facility] Comment on above: Osteoarthritis of sp ine with radiculopathy, lumbosacral region (Primary Dx); Severe obesity (BMI 35.0-39.9) with comorbidity (CMS/HCC); BMI 36.0-36.9,adult; Palpitations; Family history of early CAD; Cigarette nicotine dependence without complication; Annual physical exam; Medication management Start: 04-05-2024 End: 04-05-2024 Patient encounter procedure Adelita Epperson MD Work Phone: [facility] Start: 04-05-2024 End: 04-05-2024 ambulatory ADELITA EPPERSON Not Available Start: 03-24-2024 End: 03-24-2024 Refill Adelita Epperson MD Work Phone: [facility] Comment on above: Obesity (BMI 30-39.9 ) Start: 03-15-2024 End: 03-15-2024 ambulatory Laura Luevano MD Facility:[facility] Start: 03-02-2024 End: 03-02-2024 Orders Only Adelita Epperson MD Work Phone: [facility] Comment on above: Lumbar paraspinal mu scle spasm (Primary Dx); Lumbar radiculopathy Start: 02-10-2024 End: 02-11-2024 Refill Erin Chirinos VICE CHAIR Work Phone: [facility] Comment on above: Obesity (BMI 30-39.9 ) Start: 01-13-2024 End: 01-13-2024 Refill Adelita Epperson MD Work Phone: [facility] Comment on above: Obesity (BMI 30-39.9 ) Start: 01-05-2024 End: 01-05-2024 ambulatory Laura Luevano MD Facility:[facility] Start: 12-09-2023 End: 12-09-2023 ambulatory AL MARIN Not Available Start: 09-03-2023 End: 09-03-2023 ambulatory MD Adelita Epperson Work Phone: [facility] Work Phone: Start: 09-03-2023 End: 09-03-2023 Departed Referred MD Adelita Epperson Work Phone: [facility] [address] Work Phone: Start: 06-03-2023 Telephone encounter Laurie cameron VICE CHAIR Work Phone: [facility] Start: 09-05-[address] ADELITA EPPERSON Facility :[facility] Start: 08-06-2022 End: 08-06-2022 ambulatory NARENDRANATH LAKSHMIPATHY . Facility:[facility] Start: 07-23-2022 End: 07-24-2022 ambulatory NARENDRANATH LAKSHMIPATHY . Facility:[facility] Start: 03-28-2022 End: 03-29-2022 ambulatory SEAN EWLLS . Facility:[facility] Start: 01-03-2022 End: 01-04-2022 ambulatory SEAN WELLS . Facility:[facility] Start: 10-04-2021 End: 10-05-2021 ambulatory SEAN WELLS . Facility:[facility] Start: 04-10-2020 End: 04-10-2020 Patient encounter procedure [facility] [place] Start: 12-17-2018 End: 12-20-2018 Patient encounter procedure ADELITA EPPERSON [facility] Start: 12-17-2018 End: 12-19-2018 Subsequent hospital visit by physician [facility] Comment on above: Low back pain, unspe cified back pain laterality, unspecified chronicity, with sciatica presence unspecified Start: 03-02-2018 Patient encounter procedure Dale Chicas Facility:[id number] Start: 09-29-2017 Patient encounter procedure Dale Chicas Facility:[id number] Procedures Date Procedure Procedure Detail Performing Clinician Start: 02-02-2025 X-ray of both knees, four views Adelita Epperson MD Work Phone: Start: 09-23-2024 XR LUMBAR SPINE 6V W BENDING Generic External Data Provider Start: 12-17-2018 Radex spine lumbosac ral minimum 4 views ADELITA EPPERSON Start: 12-17-2018 Radex spine lumbosac ral minimum 4 views Adelita Henry Work Phone: Start: 09-29-2017 Follow-up visit Plan of Treatment Date Care Activity Detail Author Start: 06-21-2025 End: 06-21-2025 Patient encounter procedure [facility] [place] Start: 12-27-2024 Influenza vaccination [facility] Start: 11-23-2024 End: 11-23-2024 Patient encounter procedure 11/23/2024 9:15 AM EDT Office Visit [facility] [address] [place] [phone] Wilfrido Moreno DPM [address] [place] [address] Arrived [facility] Comment on above: Arrived Start: 10-11-2024 End: 10-11-2024 Patient encounter procedure [facility] Start: 10-08-2024 End: 10-08-2024 Patient encounter procedure 10/08/2024 9:15 AM EDT Office Visit [facility] [address] [place] [address] Wilfrido Moreno DPM [address] [place] [address] Arrived [facility] Comment on above: Arrived Start: 09-29-2024 End: 09-29-2024 Patient encounter procedure 09/29/2024 8:00 AM EDT Office Visit [facility] [address] [place] [phone] Wilfrido Moreno DPM [address] [place] [address] [facility] Start: 09-15-2024 End: 09-15-2024 Patient encounter procedure 09/15/2024 8:00 AM EDT Office Visit [facility] [address] [place] [phone] Wilfrido Moreno DPM [address] [place] [address] Arrived [facility] Comment on above: Arrived Start: 07-12-2024 End: 07-12-2024 Patient encounter procedure 07/12/2024 8:45 AM EDT Office Visit [facility] [address] [place] [address] Adelita Epperson MD [address] [place] [address] [facility] Start: 06-15-2024 End: 06-15-2024 Patient encounter procedure 06/15/2024 3:45 PM EST Office Visit [facility] [place] [address] [place] [phone] Al Marin, DO [address] [place] [address] [facility] Start: 05-31-2024 Influenza vaccination Influenza Vacc ine (#1) [facility] Comment on above: Postponed from 12/27 (Patient Refused) Start: 04-05-2024 End: 04-05-2024 Patient encounter procedure 04/05/2024 8:15 AM EST Office Visit [facility] [address] [place] [address] Adelita Epperson MD [address] [place] [address] [facility] Start: 03-11-2024 End: 03-11-2024 Patient encounter procedure 03/11/2024 3:15 PM EST Office Visit [facility] [address] [place] [phone] Al Marin, DO [address] [place] [address] [facility] Start: 03-02-2024 End: 03-02-2024 ambulatory 03/02/2024 10:30 AM EST Evaluation [facility] [address] [facility] [phone] Antonio Solomon, PT [address] [place] [phone] [facility] Start: 12-28-2023 Influenza vaccination Influenza Vacc ine (#1) [facility] Start: 08-26-2023 End: 08-26-2023 Patient encounter procedure 08/26/2023 3:45 PM EDT Office Visit [facility] [address] [place] [phone] Al Marin, DO [address] [place] [address] [facility] Start: 07-14-2023 End: 07-14-2023 Patient encounter procedure 07/14/2023 8:45 AM EDT Office Visit [facility] [address] [place] [phone] Adelita Epperson MD [address] [place] [address] [facility] Start: 06-23-2023 End: 06-23-2023 Patient encounter procedure 06/23/2023 8:00 AM EST Office Visit [facility] [address] [place] [address] Laurie Haley VICE CHAIR [address] [place] [address] [facility] Start: 06-16-2023 End: 06-16-2023 ambulatory 06/16/2023 4:15 PM EST Treatment [facility] [address] [facility] [place] [place] [address] Antonio Solomon, PT [address] [place] [address] [facility] Start: 06-09-2023 End: 06-09-2023 ambulatory 06/09/2023 4:30 PM EST Treatment [facility] [address] [place] [address] Antonio Solomon, PT [address] [place] [address] [facility] Start: 06-04-2023 End: 06-04-2024 MR Lumbar spine WO contrast MR lumbar spine wo contrast Imaging Routine DDD (degenerative disc disease), lumbar Lumbar herniated disc Expected: 06/04/2023 (Approximate), Expires: 06/04/2024 [facility] Work Phone: Comment on above: Expected: 06/04/2023 (Approximate), Expires: 06/04/2024 Start: 09-01-2023 Influenza vaccination Influenza Vacc ine (#1) [facility] Start: 12-27-2018 Influenza vaccination Flu vaccine (# 1) [place], [place] Start: 1999 DTaP/Tdap/Td vaccine (1 - Tdap) DTaP/Tdap/Td vaccine (1 - Tdap) [place], [place] Start: 1995 HIV screen HIV screen [place], [place] Start: 1993 Varicella Vaccine (1 of 2 - 13+ 2-dose series) Varicella Vaccine (1 of 2 - 13+ 2-dose series) [place], [place] Start: 1986 Pneumococcal 0-64 ye ars Vaccine (1 of 1 - PPSV23) Pneumococcal 0-64 years Vaccine (1 of 1 - PPSV23) [place], [place] Basic metabolic 1998 panel - Serum or Plasma Basic metabolic panel Lab Routine Annual physical exam Medication management Ordered: 04/05/2024 [facility] Work Phone: Comment on above: Ordered: 04/05/2024 CBC W Auto Different ial panel - Blood CBC and differential Lab Routine Annual physical exam Ordered: 04/05/2024 [facility] Comment on above: Ordered: 04/05/2024 Hepatic function 200 0 panel - Serum or Plasma Hepatic function panel Lab Routine Medication management Ordered: 04/05/2024 [facility] Comment on above: Ordered: 04/05/2024 Lipid 1996 panel - Serum or Plasma Lipid panel Lab Routine Severe obesity (BMI 35.0-39.9) with comorbidity (CMS/HCC) Annual physical exam Ordered: 04/05/2024 [facility] Comment on above: Ordered: 04/05/2024 Patient Education Low back pain - ED discharge instructions [facility] Work Phone: Patient referral [facility] Work Phone: Payers Date Payer Category Payer Self-pay [id number] 2025 Unknown [id number] 2020 Blue [employer] Blue Shield BCBS [id number] 2020 Unknown [id number] 1.13.693.2 .[id number] 2017 Private Health Insurance [id number] 2017 Private Health Insurance [employer] xxxxxxxxxx 2017-Present [phone] [address] [place] [address] xxxxxxxxxx [id number] .7.3.561689.315 1980 Unknown [id number] 2.16840.1.778926.3.579.2 .356 1980 Unknown [id number] 2.16840.1.008930.3.579.2 .356 1980 Unknown [id number] 2.16840.1.936938.3.579.2 .356 1980 Unknown [id number] 2.16.840.1.366366.3.579.2 .185 1980 Unknown [id number] 2.16.840.1.547453.3.579.2 .593 1980 Unknown [id number] 2.16.840.1.378978.3.579.2 .593 1980 Unknown [id number] 2.16.840.1.499878.3.579.2 .593 1980 Unknown [id number] 2.16.840.1.593920.3.579.2 .593 1980 Unknown [id number] 2.16.840.1.055054.3.579.2 .593 1980 Unknown [id number] 2.16.840.1.564796.3.579.2 .593 1980 Unknown [id number] 2.16.840.1.637604.3.579.2 .1258 1980 Unknown [id number] 2.16.840.1.238003.3.579.2 .1258 1980 Unknown [id number] 2.16.840.1.377196.3.579.2 .1258 1980 Unknown [id number] 2.16.840.1.162540.3.579.2 .1258 1980 Unknown [id number] 2.16.840.1.131023.3.579.2 .1258 1980 Unknown [id number] 2.16.840.1.151782.3.579.2 .1258 1980 Unknown [id number] 2.16.840.1.430372.3.579.2 .1258 1980 Unknown [id number] 2.16.840.1.445621.3.579.2 .1258 1980 Unknown [id number] 2.16.840.1.789043.3.579.2 .1258 1980 Unknown [id number] 2.16.840.1.783041.3.579.2 .1258 1980 Unknown [id number] 2.16.840.1.369210.3.579.2 .1980 Unknown [id number] 2.16.840.1.336018.3.579.2 .1980 Unknown [id number] 2.16.840.1.211962.3.579.2 .1980 Unknown [id number] 2.16.840.1.966442.3.579.2 .196 1980 Unknown [id number] 2.16.840.1.894772.3.579.2 .196 1980 Unknown [id number] 2.16.840.1.752607.3.579.2 .196 1959 Unknown [id number] Unknown [place] BC/BS 0000 [id number] Unknown [id number] 2.16.840.1.481720.3.579.2 .531 Unknown [id number] 2.16.840.1.603103.3.579.2 .531 Social History Date Type Detail Facility Start: 01-16-2018 End: 01-31-2025 Tobacco smoking status ARIS Current every day smoker [place], [place] Start: 01-16-2018 End: 04-05-2024 Alcohol intake No [place] Sex Assigned At Not on file [place], [place] Start: 1980 Sex Assigned At Male [...] 16 0z can per day [facility] Sex Male (finding) [facility] Goals Date Patient Goal Desired Activity /State Clinical Notes 10-04-2021 to 11-23-2024 Wilfrido Moreno, LYNDON - 11/23/2024 9:15 AM EDTMjonny Moreno, LYNDON - 10/08/2024 9:15 AM Stacyenriqueta Bolivar MA - 09/15/2024 8:00 AM EDTMorgan Tiffanie, LYNDON - 09/15/2024 8:00 AM EDT Note Date [...] Wilfrido Moreno DPM documented in this encounter [facility] 10-08-2024 History of Presen t illness Narrative [...] Wilfrido Moreno DPM documented in this encounter [facility] 09-15-2024 History of Presen t illness Narrative [...] Homegoing instructions were dispensed, including office and immigration services officer contact numbers. A total of 30 minutes was spent in formulation of this note, review of charts, labs, imaging with a minimum of 50% of the time spent in face to face with with the patient. All questions and concerns were answered to the patients satisfaction. documented in this encounter [facility] 09-15-2024 Instructions Linda Bolivar MA - 09/15/2024 [...] problems arise, please call the office at [phone]. documented in this encounter [facility] 08-25-2024 History of Presen t illness Narrative [...] tablet; Refill: 0 documented in this encounter [facility] 08-09-2024 History of Presen t illness Narrative [...] for oral antibiotics will be sent to [facility] in [place]. If there is no improvement with oral antibiotics, intravenous antibiotics may be considered. documented in this encounter [facility] 06-15-2024 History of Presen t illness Narrative [...] in 1 year documented in this encounter [facility] 04-05-2024 History of Presen t illness Narrative [...] Hepatic function panel documented in this encounter [facility] 03-24-2024 Telephone encount er Note Pt requesting a refill on Adipex to [facility] in [place] [facility] 03-24-2024 Miscellaneous Notes Formattin g of this note might be different from the original. Pt requesting a refill on Adipex to [facility] in [place] documented in this encounter [facility] 06-03-2023 Telephone encount er Note Pt called back and would like to do MRI at [facility]. [facility] 06-03-2023 Miscellaneous Notes Formattin g of this note might be different from the original. Pt called back and would like to do MRI at [facility]. documented in this encounter [facility] 07-23-2022 Note PAIN MANAGEMENT CONS ULTATION CONSULTATION DATE: 07/23/2022 ADDENDUM: The dictation mentions denervation of the L4-5, L5-S1 facet joint under fluoroscopic guidance by using radiofrequency ablation on the left side. The dictation should read: Proceed with radiofrequency ablation of the L2-3, L4-5 levels under fluoroscopic guidance on the left side. [facility] 07-23-2022 Note PAIN MANAGEMENT CONS ULTATION CONSULTATION DATE: 07/23/2022 ADDENDUM: The dictation mentions denervation of the L4-5, L5-S1 facet joint under fluoroscopic guidance by using radiofrequency ablation on the left side. The dictation should read: Proceeded with radiofrequency ablation of the L2-3, L4-5 levels under fluoroscopic guidance on the left side. [facility] 07-23-2022 Note CONSULTATION CONSULTATION DATE: [...] to proceed with the outlined plan. 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 He reports 0/10 pain [...] in six months' time for re-evaluation. [facility] 01-03-2022 Note CONSULTATION CONSULTATION DATE: [...] three months' time, unless otherwise indicated. [facility] 10-04-2021 Note CONSULTATION CONSULTATION DATE: [...] gluconate 800 mg q.h.s. in addition to xmip-izd-nrwslop ibuprofen 600 mg q.a.m. before work. Daily stretching and the use of heat were encouraged to aid with the spasms. We discussed about different vitamin regimens and the patient was willing to try. He will be followed up in the clinic in three months' time unless otherwise indicated. The patient agrees with the plan of care. [facility] Signed and Approved by: SEAN WELLS . 10/11/2021 16:03:00 [facility] Evaluation note Diagnosis DDD (degenerative disc disease), lumbar- Primary Degeneration of lumbar or lumbosacral intervertebral disc Lumbar herniated disc documented in this encounter [facility] HealthcareEvaluation noteNo assessment information availableA[facility] Work Phone: Evaluation note* Diagnosis Obesity (BMI 30-39.9) documented in this encounter [facility] HealthcareEvaluation note* Diagnosis Lumbar paraspinal [...] Obesity (BMI 30-39.9) documented in this encounter [facility] HealthcareEvaluation note* Diagnosis Osteoarthritis of spine with radiculopathy, lumbosacral region- Primary Severe obesity (BMI 35.0-39.9) with comorbidity (CMS/[facility]) BMI 36.0-36.9,adult Palpitations Family history of early CAD Family history of ischemic heart disease Cigarette nicotine dependence without complication Annual physical exam Routine general medical examination at a health care facility Medication management documented in this encounter [facility] HealthcareEvaluation note* Diagnosis Obesity (BMI 30-39.9) documented in this encounter [facility] HealthcareEvaluation note* Diagnosis History of cholesteatoma- Primary Chronic mastoiditis of left side Hearing loss of left ear, unspecified hearing loss type documented in this encounter [facility] HealthcareEvaluation note* Diagnosis Cellulitis of abdominal wall- Primary Cellulitis and abscess of trunk Abscess Cellulitis and abscess of unspecified site documented in this encounter [facility] HealthcareEvaluation note* Diagnosis Groin abscess- Primary Cellulitis and abscess of trunk Cellulitis of groin Cellulitis and abscess of trunk documented in this encounter [facility] HealthcareEvaluation note* Diagnosis Ingrown toenail- Primary Ingrowing nail Bilateral foot pain documented in this encounter [facility] HealthcareEvaluation note* Diagnosis Ingrown toenail- Primary Ingrowing nail Tinea pedis of both feet documented in this encounter [facility] HealthcareEvaluation note* Diagnosis Tinea pedis of both feet- Primary documented in this encounter [facility] HealthcareReason for referral (narrative)No reason for referral information availableAcmc [facility] Work Phone: Reason for visit Narrative* Rehabilitation - Outpatient (Routine) - Authorized Specialty Diagnoses / Procedures Referred By Selvin garcia Referred To Contact Physical Therapy Diagnoses Lumbar paraspinal muscle spasm Lumbar radiculopathy Procedures IN OFFICE/OUTPATIENT [facility] 60 MINUTES Adelita Epperson MD [address] [place] [address] Phone: tel: fax: Antonio Solomon, PT [address] [place] [address] Phone: tel: fax: Referral ID Status Reason Start Date Expiration Date Visits Requested Visits Authorized [id number] Authorized Consult and Treat 03/02/2024 08/29/2024 53 53 [facility] Healthcare Summary Purpose Family History No Family History Records FoundNo Family History Records FoundNo Family History Records FoundNo Family History Records FoundNo Family History Records FoundNo Family History Records FoundNo Family History Records FoundNo Family History Records FoundNo Family History Records Found Advance Directives No Advanced Directives Records FoundDocuments on File Type Date Recorded Patient Fence Post Cutter Expl anation Advance Directives and Living Will Power of Marketing Services Coordinator Advance Directive Response Recorded Date/ Time Advance Directives No December 8:43am Advance Directive Response Recorded Date/ Time Advance Directives No September 03, 2023 8:44am Assessments Diagnosis Low back pain, unspecified back pain laterality, unspecified chronicity, with sciatica presence unspecified Chief Complaint and Reason for Visit Chief Complaint Back Pain Chief Complaint usg annual xd and la bs Chief Complaint Admit Date Back pain/spasms January 31, 2025 12 :07am [facility] initial, X-ray February 02, 2025 8: 38am Reason for Referral Specialty Diagnoses / Procedures Referred By Contac t Referred To Contact Diagnoses DDD (degenerative disc disease), lumbar Lumbar herniated disc Procedures MR lumbar spine wo contrast Laurie Haley NP [address] [facility] [address] [place] [address] Referral ID Status Reason Start Date Expiration Date V isits Requested Visits Authorized [id number] Pending Review 06/04/2023 12/01/2023 1 1 Additional Source Comments (unrecognized sect ion and content) No Status Records FoundNo Status Records FoundNo Status Records FoundNo Status Records FoundNo Status Records FoundNo Status Records FoundNo Status Records FoundNo Status Records FoundNo Status Records Found INFORMATION SOURCE (unrecogn ized section and content) DATE CREATED AUTHOR 04/05/2018 [facility] DATE CREATED AUTHOR AUTHOR'S ORGANIZ ATION 04/05/2018 [facility] DATE CREATED AUTHOR AUTHOR'S ORGANIZ ATION 12/20/2018 [facility] DATE CREATED AUTHOR AUTHOR'S ORGANIZ ATION 01/31/2019 [facility] DATE CREATED AUTHOR AUTHOR'S ORGANIZ ATION 08/08/2021 [facility] Special[facility] DATE CREATED AUTHOR AUTHOR'S ORGANIZ ATION 08/09/2022 [facility] DATE CREATED AUTHOR AUTHOR'S ORGANIZ ATION 11/24/2024 [facility] dical Specialists [facility] DATE CREATED AUTHOR AUTHOR'S ORGANIZ ATION 11/26/2024 [facility] DATE CREATED AUTHOR AUTHOR'S ORGANIZ ATION 02/14/2025 [facility] Care Teams (unrecognized sec tion and content) Casing Tier Relationship Specialty Start Date End Date Adelita Epperson MD [address] [place] [address] PCP - General Internal Medicine 11/06/22 Team Status: Active Member Role Status Dates Adelita Epperson MD Primary Care Provider Active Team Status: Inactive Member Role Status Dates Adelita Epperson MD Primary Care Provider Active St art: September 03, 2023 End: September 03, 2023 Manjinder Lynn Jr, Attending Provider Active S tart: September 03, 2023 End: September 03, 2023 Casing Tier Relationship Specialty Start Date End Date Adelita Epperson MD [address] [place] [address] PCP - General Internal Medicine 11/06/22 Adelita Epperson MD [address] [place] [address] PCP - [place] [employer] 06/27/23 Casing Tier Relationship Specialty Start Date End Date Adelita Epperson MD [address] [place] [address] PCP - General Internal Medicine 11/06/22 Adelita Epperson MD [address] [place] [address] PCP - [place] [employer] 06/27/23 Casing Tier Relationship Specialty Start Date End Date Adelita Epperson MD [address] [place] [address] PCP - General Internal Medicine 11/06/22 Adelita Epperson MD [address] [place] [address] PCP - [place] [employer] 06/27/23 Casing Tier Relationship Specialty Start Date End Date Adelita Epperson MD [address] [place] [address] PCP - General Internal Medicine 11/06/22 Adelita Epperson MD [address] [place] [address] PCP - [place] [employer] 06/27/23 Casing Tier Relationship Specialty Start Date End Date Adelita Epperson MD [address] [place] [address] PCP - General Internal Medicine 11/06/22 Adelita Epperson MD [address] [place] [address] PCP - [place] [employer] 06/27/23 Casing Tier Relationship Specialty Start Date End Date Adelita Epperson MD [address] [place] [address] PCP - General Internal Medicine 11/06/22 Adelita Epperson MD [address] [place] [address] PCP - [place] [employer] 06/27/23 Casing Tier Relationship Specialty Start Date End Date Adelita Epperson MD [address] [place] [address] PCP - General Internal Medicine 11/06/22 Adelita Epperson MD [address] [place] [address] [facility] Casing Tier Relationship Specialty Start Date End Date Adelita Epperson MD [address] [place] [address] PCP - General Internal Medicine 11/06/22 Casing Tier Relationship Specialty Start Date End Date Adelita Epperson MD [address] [place] [address] PCP - General Internal Medicine 11/06/22 Casing Tier Relationship Specialty Start Date End Date Adelita Epperson MD [address] [place] [address] PCP - General Internal Medicine 11/06/22 Casing Tier Relationship Specialty Start Date End Date Adelita Epperson MD [address] [place] [address] PCP - General Internal Medicine 11/06/22 Casing Tier Relationship Specialty Start Date End Date Adelita Epperson MD [address] [place] [address] PCP - General Internal Medicine 11/06/22 Team Status: Inactive Member Role Status Dates Adelita Epperson MD Primary Care Provider Active St art: January 31, 2025 End: January 31, 2025 Davy Ornelas DO Emergency Provider Active Start: January 31, 2025 End: January 31, 2025 Team Status: Inactive Member Role Status Dates Adelita Epperson MD Primary Care Provider Active St art: February 02, 2025 End: February 02, 2025 Manjinder Lynn Jr, DO Attending Provider Active S tart: February 02, 2025 End: February 02, 2025 Goals (unrecognized section and content) Goals may be documented in a n alternate sectionGoals may be documented in an alternate section Reason for Visit (unrecogniz ed [...] Comments Cellulitis follow-up Pt was seen in [facility] 08/09/2024. Prescribed Bactrim bid for 7 days [...] BE BASED ON THE PRIMARY CLINICAL RECORDS. [facility] [facility]. provides no warranty or guarantee of the accuracy or completeness of information in this document.
--- OUTSIDE RECORDS SUMMARY | 2025-02-14 06:48 | XMS_ITS | Clinical Summary ---
Author Organization [facility] Healthcare Address [address] [place] [address] Care Team Providers Care Short Piece Handler Name Role Phone Paulino Paez MD Primary Care Provider [phone] Allergies No known active allergies Medications Cannabinoids (medical cannabis) Active ibuprofen 800 MG tablet Take 800 mg by mouth every 6 (six) hours if needed Active phentermine (Adipex-P) 37.5 MG tabletIndication s:Obesity (BMI 30-39.9) Take 1 tablet (37.5 mg) by mouth in the morning. Take before meals. 90 tablet 07/19/2024 Active Active Problems Problem Noted Date Diagnosed Date Family history of early CAD 11/07/2022 Overview (11/07/2022): Father GA at age 40. Osteoarthritis of spine with [...] Encounters Date Type Department Care Team Description 01/03/2025 Telephone [facility] [place] [facility] [address] [place] [address] Inez Munoz MA FMLA 11/23/2024 9:15 AM EDT Office Visit [facility] [address] [place] [address] Wilfrido Martinez, DPM Tinea pedis of both feet (Primary Dx) 11/23/2024 Bamboo flowsheet [facility] [place] [facility] [address] [place] [address] Wilfrido Martinez DPM 11/23/2024 Travel 11/16/2024 Travel from Last 3 Months Family History Medical History Relation Name Comments Diabetes Father ray Heart attack Father ray Heart disease Father ray Relation Name Status Comments Brother Alive Father ray Alive Mother Alive Son Alive Social History Tobacco Use Types Packs/Day Years Used Date Smoking Tobacco: Every Day Cigarettes 0.5 31.8 Started: 04/28/1993 Smokeless Tobacco: Never Tobacco Cessation:Ready [...] 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[employer] , 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 on file [...] Care Team (Late st Contact Info) Description 04/04/2025 8:15 AM EST Office Visit [facility] [address] [place] [address] Paulino Paez MD [address] [place] [address] 06/21/2025 3:45 PM EST Office Visit [facility] [address] [place] [address] Al Chi DO [address] [facility] [place] [address] Health Maintenance Due Date Last Done Comments Influenza Vaccine (#1) 2024 Insurance [facility] Care Teams Short Piece Handler Relationship Specialty Start Date End Date Paulino Paez MD [address] [place] [address] PCP - General Internal Medicine 11/06/22
--- OUTSIDE RECORDS SUMMARY | 2025-02-14 06:49 | XMS_ITS | Encounter Summary ---
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[employer] , 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 on file Not on file Not on file documented as of this encounter Plan of Treatment Upcoming Encounters Date Type Department Care Team (Late Contact Info) Description 04/04/2025 8:15 AM EST Office Visit [facility] [place] [facility] [address] [place] [address] Paulino Paez MD [address] [place] [address] 06/21/2025 3:45 PM EST Office Visit [facility] [address] [place] [address] Al Chi, [address] [place] [address] documented as of this encounter Procedures Procedure [...] on filedocumented in this encounter Care Teams Floor Installation Mechanic Relationship Specialty Start Date End Date Paulino Paez MD [address] [place] [address] PCP - General Internal Medicine 11/06/22 Paulino Paez MD [address] [place] [address] PCP - [place] [employer] 06/27/23 documented as of this encounter
--- OUTSIDE RECORDS SUMMARY | 2025-02-14 06:49 | XMS_ITS | Encounter Summary ---
Author Organization [facility] Address [address] [facility] [place] [address] Care Team Providers Care Abrasive Sawyer Name Role Phone Paulino Paez MD Primary Care Provider [phone] Paulino Paez MD Unavailable [phone] Encounter Details Date Type Department Care Team (Late Contact Info) Description 07/28/2023 Orders Only [facility] [place] [facility] [address] [facility] [address] [place] [address] A, Unknown Practice [address] [place], [place] [phone] Social History Tobacco Use Types Packs/Day Years Used Date Smoking Tobacco: Every Day Cigarettes 0.5 31.8 Started: 04/28/1993 Smokeless Tobacco: Never Alcohol Use [...] 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[employer] , 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 on file Not on file Not on file documented as of this encounter Plan of Treatment Upcoming Encounters Date Type Department Care Team (Late Contact Info) Description 04/04/2025 8:15 AM EST Office Visit [facility] [place] [facility] [address] [place] [phone] Paulino Paez MD [address] [place] [address] 06/21/2025 3:45 PM EST Office Visit [facility] [address] [place] [phone] Al Chi, DO [address] [place] [address] documented as of this encounter Procedures Procedure [...] on filedocumented in this encounter Care Teams Abrasive Sawyer Relationship Specialty Start Date End Date Paulino Paez MD [address] [place] [address] PCP - General Internal Medicine 11/06/22 Paulino Paez MD [address] [facility] [address] [place] [address] PCP - [place] [employer] 06/27/23 documented as of this encounter
--- OUTSIDE RECORDS SUMMARY | 2025-02-14 06:49 | XMS_ITS | Clinical Summary ---
Author Organization [facility] Address [address] [facility] [place] [address] Care Team Providers Care Apprentice Electrician Name Role Phone Paulino Paez MD Primary Care Provider Allergies No known active allergies Medications naproxen [...] of Treatment Not on file Care Teams Apprentice Electrician Relationship Specialty Start Date End Date Paulino Paez MD PCP - General 06/30/17
--- OUTSIDE RECORDS SUMMARY | 2025-02-14 06:49 | XMS_ITS | Clinical Summary ---
Author Organization [facility] Address [facility] [place] [address] Care Team Providers Care Celery Stripper Name Role Phone Unavailable Primary Care Provider [...] of 3 - 19+ 3-dose series) 05/16 HPV Vaccine (1 - 3-dose SCDM series) 2007 Lipid Screening 2015 Covid-19 Vaccine (1 - 2024- season) 2024 Influenza Vaccine (#1) 2024 Insurance [employer]
--- OUTSIDE RECORDS SUMMARY | 2025-02-14 06:49 | XMS_ITS | Encounter Summary ---
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 Not on file Not on file documented as of this encounter Plan of Treatment Upcoming Encounters Date Type Department Care Team (Late Contact Info) Description 04/04/2025 8:15 AM EST Office Visit [facility] [place] [facility] [address] [place] [address] Adelita Epperson MD [address] [place] [address] 06/21/2025 3:45 PM EST Office Visit [facility] [facility] [address] [place] [address] Al Chi, DO [address] [place] [address] documented as of this encounter Procedures Procedure Name Priority Date/Time Associated Diagnosis Comments MR LUMBAR SPINE WO CON 06/13/2023 8:29 AM EST documented in this encounter Results * MR LUMBAR SPINE WO CON (06/13/2023 8:29 AM EST) Anatomical Region Laterality Modality Other 06/13/2023 8:29 AM EST Narrative 06/13/2023 8:32 AM EST [address] [address] Magnetic Resonance Report Signed Patient: LUÍS CALHOUN MR#: [id number] : 1980 Acct:[id number] Age/Sex: 43 / M ADM Date: 06/13/23 Loc: MRI Attending Dr: MARCEL BARRERA DEVELOPMENTAL BEHAVIORAL PHYSICIAN Ordering Physician: MARCEL BARRERA NP Date of Service: 06/13/23 Procedure(s): MR lumbar spine wo con Accession Number(s): [id number] cc: MARCEL BARRERA DEVELOPMENTAL BEHAVIORAL PHYSICIAN; ADELITA EPPERSON [address] [address] Patient Name: LUÍS CALHOUN MRN: [id number] date: 1980 Sex: M Assigned Patient Location: MRI Current Patient Location: MRI Accession/Order Number: [id number] Exam Date: 06/13/2023 07:38 Report Date: 06/13/2023 [...] M.D. Signed By: 06/13/2332 DD/ 8 TD/TT: Bead Worker Sewing: Procedure Note Radiology, Radiologist, - 06/13/2023 [place] [address] Magnetic Resonance Report Signed Patient: LUÍS CALHOUN#: [id number] : 1980Acct:[id number] Age/Sex: 43 / MADM Date: 06/13/23 Loc: MRI Attending Dr: MARCEL BARRERA DEVELOPMENTAL BEHAVIORAL PHYSICIAN Ordering Physician: MARCEL BARRERA NP Date of Service: 06/13/23 Procedure(s): MR lumbar spine wo con Accession Number(s): [id number] cc: MARCEL BARRERA DEVELOPMENTAL BEHAVIORAL PHYSICIAN; ADELITA EPPERSON [place] [address] Patient Name: LUÍS CALHOUN MRN: [facility]:[id number] date: 1980 Sex: M Assigned Patient Location: MRI Current Patient Location: MRI Accession/Order Number: [id number] Exam Date: 06/13/2023 07:38 Report Date: 06/13/2023 [...] Henry M.D. Signed By:06/13/23831 DD/ 8 TD/TT: Bead Worker Sewing: us Generic External Data Provider [facility] Final Result documented in this encounter Visit Diagnoses Not on filedocumented in this encounter Care Teams Soft Work Wrapper Examiner Relationship Specialty Start Date End Date Adelita Epperson MD [address] [place] [address] PCP - General Internal Medicine 11/06/22 Adelita Epperson MD [address] [place] [address] [place] [address] PCP - [place] [employer] 06/27/23 documented as of this encounter
--- OUTSIDE RECORDS SUMMARY | 2025-02-14 06:49 | XMS_ITS | Encounter Summary ---
Author Organization [facility] Address [address] [place] [address] Care Team Providers Care Debug Technician Name Role Phone Paulino Paez MD Primary Care Provider [phone] Pcp, No Primary Care Provider Unavailabl e Source Comments In the event this information is protected by the Federal Confidentiality of Alcohol and Drug AbusePatient Records regulations: The Federal rules restrict any use of the information to criminally investigate or prosecute any alcohol or drug abuse patient.[facility] Encounter Details Date Type Department Care Team (Late st Contact Info) Description 05/11/2012 Letters (in) [facility] [address] [place] [address] Pedro Mcfadden MD Social History [...] May 11, 2012 RE: [facility] #:[id number] Dear Dr. Paez: Thank you for asking [...] this referral. Sincerely, Danny Mcfadden M.D., [facility][id number] / cc: documented in this encounter Plan of Treatment Not on file documented as of this encounter Visit Diagnoses Not on filedocumented in this encounter Care Teams Debug Technician Relationship Specialty Start Date End Date Paulino Paez MD PCP - General 11/28/09 11/09/21 Pcp, No PCP - General 11/10/21 05/28/22 documented as of this encounter
[2025-02-14 07:26] VITALS: BP 148/98; PULSE 80; TEMP 36.7; O2SAT 99
[2025-02-14 08:15] VITALS: BP 153/102; PULSE 64; O2SAT 97
[2025-02-14 08:16] VITALS: BP 151/92; PULSE 68; O2SAT 97
[2025-02-14] MEDS: 0.9 % SODIUM CHLORIDE 10 ML SYRINGE - SALINE FLUSH INJ (08:17)
[2025-02-14] MEDS: LIDOCAINE HCL 2% 400 MG/20 ML MDV INJ (08:17)
[2025-02-14] MEDS: METHYLPREDNISOLONE ACETATE 80 MG/ML VIAL INJ (08:17)
[2025-02-14] MEDS: IOHEXOL 240 MG/ML - 10 ML VIAL 24 MG INJ (08:17)
[2025-02-14] MEDS: BUPIVACAINE HCL 0.25% PF 25 MG/10 ML VIAL INJ (08:17)
--- NOTE | 2025-02-14 08:18 | P.ON_ITS ---
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 Informed consent was obtained and placed on the chart.? Patient was brought to the medical procedure unit and placed in the prone position where a timeout was completed verifying the correct patient, procedure site, position, and planned special equipment using sterile aseptic technique.? Under direct fluoroscopic visualization a 25-gauge Quincke tipped spinal needle was advanced to the designated neural foramen where contrast dye was injected to show adequate spread.? The needle was inserted at level left L4-5. There was no evidence of vascular or adverse uptake.? Epidural spread was appreciated.? The above- mentioned injectate was then placed in a 1.5 mL aliquot preceded by negative aspiration.? The needle was removed. The needle was inserted and the procedure repeated at level left L5-S1.? The surgery site was covered.? Patient was taken to the postprocedural recovery area and monitored for an appropriate length of time before found suitable for discharge in the accompaniment of a responsible adult. Anesthesia: Local Surgeon: Laura Luevano Pathology: none sent Condition: stable Disposition: no change
== END 2025-02-14 08:22 | disposition home or self-care (01) ==
PROVIDERS: PCP Internal Medicine; Visit Provider Anesthesiology
DX: M48.062 Spinal stenosis, lumbar region with neurogenic claudication (principal); M54.50 Low back pain, unspecified
CPT/HCPCS: 64483; 64484; J0665; J1010; Q9966

== ENCOUNTER 2025-02-23 07:41 | Outpatient (OUT) | payer BC, SELFPAY ==
--- OUTSIDE RECORDS SUMMARY | 2025-02-23 07:45 | XMS_ITS | CCD ---
Author Organization [facility] Care Team Providers Care Professor Of Communication And Writing Name Role Phone Jennifer Muller Unavailable Unavailable Juan Francisco, Maroun Tanus Unavailable Unavailable Adelita Epperson Unavailable Unavailable Juan Francisco, Maroun Tanus Unavailable Unavailable Pelon Head Unavailable Unavail able Adelita Epperson Unavailable Unavailable Juan Francisco, Maroun Tanus Unavailable Unavailable Juan Francisco, Maroun Tanus Unavailable Unavailable Adelita Epperson Unavailable Unavailable ADELITA EPPERSON Primary Care Unavailable Adelita Epperson Primary Care Provider [phone] Adelita Epperson Primary Care Provider Dereck Morrow [...] Provider MD Adelita Epperson Primary Care Provider [phone] DO Manjinder Lynn Jr Attending Provider [phone] Adelita Epperson MD Unavailable AL MARIN Attending Unavailable ADELITA EPPERSON Attending Unavailable ADELITA EPPERSON Attending Unavailable WILFRIDO MORENO Attending UnavailWILFRIDO Mchugh Attending UnavailWILFRIDO Mchugh Attending UnavailAL Baxter Attending Unavailable ANTONIO SOLOMON Attending Unavailable ADELITA EPPERSON Referring Unavailable ADELITA EPPERSON Attending Unavailable ERIN CHIRINOS Attending Unavailable Adelita Epperson MD Primary Care Provider [phone] Davy Ornelas DO Emergency Provider Manjinder Lynn DO Attending Provider Davy Ornelas Admitting UnavailDavy Chambers Attending UnavailAdelita Judge [facility] Unavailable Manjinder Lynn Jr Admitting Unavailable Manjinder Lynn Jr Attending Unavailable Adelita Epperson Primary Care Unavailable Chloé CID, Laura Gutierrez Attending Unavailable Chloé CID, Laura Gutierrez Attending Unavailable Chloé CID, Laura Gutierrez Attending Unavailable Chloé CID, Laura Gutierrez Attending Unavailable Chloé CID, Laura Gutierrez Attending Unavailable Chloé CID, Laura Gutierrez Attending Unavailable Unavailable Unavailable Unavailable Medications Current Medications MedicationDrug Class(es)DatesSig (Normalized)Sig (Original)acetaminophen 250 mg / aspirin 250 mg / caffeine 65 mg oral tablet (3 sources)Platelet Aggregation Inhibitor, Nonsteroidal Anti-inflammatory Drug, Central Nervous System Stimulant, MethylxanthineStart: 49-52-8659xkcs 2 tablets by mouth every four to six hours as needed for painacetaminophen 325 mg / HYDROcodone bitartrate 5 mg oral tablet (1 source)Opioid AgonistStart: 39-41-7370NFSMOgfbvek-acetaminophen (NORCO) 5-325 MG per tabletCannabinoids (medical cannabis) (20 sources)Cannabinoids (medical cannabis) ActiveCannabinoids (medical cannabis) Medicinal Marijuana ActiveCannabinoids (medical cannabis) Medicinal Marijuana 0 Activegabapentin 100 mg oral capsule (1 source)Anti-epileptic AgentStart: 47-67-8741itnz 1 tablet by mouth twice dailyibuprofen 800 mg oral tablet (20 sources)Nonsteroidal Anti-inflammatory Drugtake 1 tablet by mouth every six hours as neededibuprofen 800 MG tablet Take 800 mg by mouth every 6 (six) hours if needed Activeketoconazole 20 mg/ml topical cream (2 sources)Azole AntifungalStart: 10-08-2024 End: 76-02-4352nsczuyqsybac (NIZOral) 2 % cream Indications: Tinea pedis of both feet Apply topically Daily Apply to plantar foot and webspaces bilaterally daily 60 g 2 10/08/2024 11/07/2024 Activenaproxen 375 mg oral tablet (1 source)Nonsteroidal Anti-inflammatory Drugnaproxen (NAPROSYN) 375 MG tablet Take 375 mg by mouth as needed for Pain 0 Activephentermine hydrochloride 37.5 mg oral tablet (20 sources)Sympathomimetic Amine AnorecticStart: 61-75-9177codl 1 tablet by mouth before mealtimephentermine (Adipex-P) 37.5 MG tablet Indications: Obesity (BMI 30-39.9) Take 1 tablet (37.5 mg) bymouth in the morning. Take before meals. 90 tablet 07/19/2024 ActiveStart: 03-24-2024 End: 78-02-3398bxak 1 tablet by mouth before mealtimephentermine (Adipex-P) 37.5 MG tablet Indications: Obesity (BMI 30-39.9) Take 1 tablet (37.5 mg) bymouth in the morning. Take before meals. 30 tablet 05/31/2024 ActiveStart: 32-36-8865gypn 1 tablet by mouth before mealtimephentermine (Adipex-P) 37.5 MG tablet Indications: Obesity (BMI 30-39.9) Take 1 tablet (37.5 mg) bymouth in the morning. Take before meals. 30 tablet 01/13/2024 ActiveStart: 12-05-2023 End: 64-49-8236sxoz 1 tablet by mouth before mealtimephentermine (Adipex-P) 37.5 MG tablet Indications: Obesity (BMI 30-39.9) Take 1 tablet (37.5 mg) bymouth in the morning. Take before meals. 30 tablet 03/24/2024 Activesulfamethoxazole 800 mg / trimethoprim 160 mg oral tablet (4 sources)Dihydrofolate Reductase Inhibitor Antibacterial, Sulfonamide AntimicrobialStart: 08-25-2024 End: 72-01-1330yhsq 1 tablet by mouth oncesulfamethoxazole-trimethoprim (Bactrim DS) 800-160 MG per tablet Indications: Cellulitis of groin ,Groin abscess Take 1 tablet by mouth every 12 (twelve) hours for 10 days 20 tablet 08/25/20242024 ActiveStart: 08-09-2024 End: 67-56-5353aqtx 1 tablet by mouth once in the morning, then take 1 tablet by mouth once at bedtimesulfamethoxazole-trimethoprim (Bactrim DS) 800-160 MG per tablet Indications: Cellulitis of abdominal wall , Abscess Take 1 tablet by mouth in the morning and 1 tablet before bedtime. Do all this for7 days. 14 tablet 08/09/2024 08/16/2024 Activezonisamide 50 mg oral capsule (3 sources)Anti-epileptic AgentStart: 01-12-2024 End: 30-50-4657higc 1 capsule by mouth once daily at bedtimezonisamide (Zonegran) 50 MG capsule TAKE 1 CAPSULE BY MOUTH EVERYDAY AT BEDTIME 01/12/2024 04/05/2024 Discontinued Completed/Discontinued Medications MedicationDrug Class(es)DatesSig (Normalized)Sig (Original)baclofen 10 mg oral tablet (7 sources)gamma-Aminobutyric Acid-ergic AgonistStart: 02-17-2024 End: 06-29-1232iede 1 tablet by mouth in the morningbaclofen (Lioresal) 10 MG tablet Take 1 tablet by mouth in the morning and 1 tablet before bedtime. 02/17/2024 06/15/2024 Discontinued Problems Active Problems Problem ClassificationProblemDateDocumented DateEpisodic/ChronicCardiac dysrhythmias (2 sources)Palpitations; Translations: [Palpitations]77-09-5226EhotupwjDqujsuj (4 sources)Tinea pedis; Translations: [Tinea pedis]32-30-7946IqgzvyjfSywvn aftercare (2 sources)Patient encounter status; Translations: [Other terminal gauger (current) drug therapy]65-46-8940AbqrqalcShopq connective tissue disease (1 source)Other muscle spasm; Translations: [OTHER MUSCLE SPASM]Onset: 84-83-4179QkmjxjcjEdwke connective tissue disease (2 sources)Pain in both feet; Translations: [Pain in right foot]09-15-2024 EpisodicOther ear and sense organ disorders (20 sources)Conductive hearing loss, unilateral, left ear, with unrestricted hearing on the contralateral side;Translations: [Conductive hearing loss, unilateral]Onset: 468039-19-9110TmkhpoxHsopy ear and sense organ disorders (2 sources)Hearing loss in left ear; Translations: [Unspecified hearing loss, left ear]63-36-5147XhrrclbOrfsr liver diseases (1 source)Nodule of liver; Translations: [Other specified diseases of liver] Onset: 127372-77-3343OjlbzfqEwxjc nervous system disorders (1 source)Other chronic pain; Translations: [OTHER CHRONIC PAIN]Onset: 08-73-3254CzpgayrMtnsc nervous system disorders (2 sources)H/O: ear disorder; Translations: [Personal history of other diseases of the nervous system and sense organs]33-49-4477TylkodldEqtkv nutritional; endocrine; and metabolic disorders (1 source)Morbid obesity; Translations: [Morbid (severe) obesity due to excess calories]Onset: 464939-95-5133SxqqwqgBmamz nutritional; endocrine; and metabolic disorders (2 sources)Severe obesity; Translations: [Morbid (severe) obesity due to excess calories]21-32-6179ZcfkqzyCvxfg skin disorders (4 sources)Ingrowing toenail; Translations: [Ingrowing nail]55-33-8891Gjfbbufh Otitis media and related conditions (2 sources)Chronic left mastoiditis; Translations: [Chronic mastoiditis, left ear]10-34-2486MndsrbjJieb and subcutaneous tissue infections (8 sources)Cellulitis of abdominal wall ; Translations: [Cellulitis of abdominal wall]82-33-7493ZnznhvbvEhdevpikzvi; intervertebral disc disorders; other back problems (20 sources)Lumbosacral spondylosis without myelopathy; Translations: [Spondylosis without myelopathy or radiculopathy, lumbar region]Onset: 01-24-2010 Resolved: 812042-34-7524CqpilrmVebcrmjoyyg; intervertebral disc disorders; other back problems (20 sources)Low back pain; Translations: [Muscle spasm of back]Onset: 10-04-2021 Resolved: 15-23-8052MwmrpypuFfxgkwt and strains (1 source)Strain of muscle, fascia and tendon of lower back, initial encounter; Translations: [Strain of muscle, fascia and tendon of lower back, initial encounter]Onset: 23-27-3662HdwfkooyIsxloxgus-related disorders (2 sources)Tobacco dependence caused by cigarettes; Translations: [Nicotine dependence, cigarettes, uncomplicated]29-62-8923MastmejUqyymyikaypb (1 source)Condctv hear loss, uni, left ear, w unrestr hear cntra side / H90.12(ICD-10)Onset: 85-55-0702Jjwwpsjlepmj (1 source)Unspecified cholesteatoma, left ear / H71.92(ICD-10)Onset: 09-29-2017 Unclassified (1 source)LOW BACK PAIN, UNSPECIFIED; Translations: [LOW BACK PAIN, UNSPECIFIED] Onset: 04-27-6024Kphiktnnzdnb (1 source)Low back pain, unspecified; Translations: [Low back pain, unspecified] Onset: 01-31-2025 Past or Other Problems Problem ClassificationProblemDateDocumented DateEpisodic/ChronicEsophageal disorders (20 sources)Laryngopharyngeal reflux; Translations: [Gastro-esophageal reflux disease without esophagitis]Onset: 02-24-2023 Resolved: 115570-33-7830BodedfkXrsdw diseases of veins and lymphatics (20 sources)Lymphedema; Translations: [Lymphedema, not elsewhere classified] Onset: 10-08-2018 Resolved: 767892-70-3430PkektfiKchdi gastrointestinal disorders (20 sources)Chronic constipation; Translations: [Other constipation]Onset: 09-12-2019 Resolved: 244821-70-6022KcbyaixwDkiwa liver diseases (20 sources)Elevated liver enzymes level; Translations: [Abnormal levels of other serum enzymes]Onset: 11-01-2022 Resolved: 627660-73-0316LgltudxpMiald nutritional; endocrine; and metabolic disorders (20 sources)Body mass index 30+ - obesity; Translations: [Obesity, unspecified] Onset: 02-24-2023 Resolved: 170633-25-2905ZnerdanJnypsmiz codes; unclassified (20 sources)FH: premature coronary heart disease; Translations: [Family history of ischemic heart disease and other diseases of the circulatory system]Onset: 108703-58-2379Npkesgrt Results Test NameValueInterpretationReference RangeFacilityX-ray reportOrdered By: Mushtaq Harrington on 91-63-5414Bcxow reportCINCINNATI [facility] [address] XRay Report Signed Patient: Cas Calhoun MR#: [id number] : 1980 Acct:[id number] Age/Sex: 44 / M ADM Date: 5 Loc: CO Room: Type: [facility] Attending Dr: Manjinder Lynn Jr, DO Copies to: Manjinder Lynn DO~ Ordering Provider: Manjinder Lynn DO Date of Service: 02/02/25 XR/XR knee BI 4V: [facility] BILATERAL KNEE INJURY XR knee BI 4V 02/02/2025 9:12 AM SIGNS AND SYMPTOMS: ^[facility] BILATERAL KNEE INJURY, fall at work injuring and bruising knees bilaterally, left greater thanright PROTOCOL: Frontal, lateral, and oblique radiographs of [...] Harrington M.D. 02/02/2025 9:14 AM Dictation Location: RADIO-PC-23 Transcribed By: JOSELINE 02/02/25913 Dictated By: Mushtaq Harrington II, MD 02/02/25910 Signed By: 02/02/25913 [facility] Work Phone: XR knee BI 4Von 60-33-1753IC knee BI 4VCINCINNATI [facility] [place] [address] [place] [address] XRay Report Signed Patient: Cas Calhoun MR#: [id number] : 1980 Acct:[id number] Age/Sex: 44 / M ADM Date: 02/02/25 Loc: CO Room: Type: [facility] Attending Dr: Manjinder Lynn Jr, DO Copies to: Manjinder Lynn DO Ordering Provider: Manjinder Lynn DO Date of Service: 02/02/25 XR/XR knee BI 4V: [facility] BILATERAL KNEE INJURY XR knee BI 4V 02/02/2025 9:12 AM SIGNS AND SYMPTOMS: [facility] BILATERAL KNEE INJURY, fall at work [...] Harrington M.D. 02/02/2025 9:14 AM Dictation Location: RADIO-PC-23 Transcribed By: JOSELINE 02/02/25913 Dictated By: Mushtaq Harrington II, MD 02/02/25910 Signed By: 02/02/25 0914[facility] GroupXR LUMBAR SPINE 6V W BENDINGon 47-16-7175[address] [address] XRay Report Signed Patient: CAS CALHOUN MR#: [id number] : 1980 Acct:[id number] Age/Sex: 44 / M ADM Date: 09/23/24 Loc: RAD Attending Dr: Jeanette Castro NP Ordering Physician: Jeanette Castro NP Date of Service: 09/23/24 Procedure(s): XR lumbar spine 6V w bending Accession Number(s): [id number] cc: Jeanette Castro MATHEMATICS TECHNICIAN; [place] [address] Patient Name: CAS CALHOUN MRN: [id number] date: 1980 Sex: M Assigned Patient Location: [facility] Current Patient Location: [facility] Accession/Order Number: [id number] Exam Date: 09/23/2024 15:44 Report Date: 09/23/2024 [...] Salazar M.D. 09/23/2024 3:46 PM Dictation Location: [place] [address] Electronically authenticated by: [id number] Y Date: 09/23/2024 15:46 Dictated By: Pelon Salazar D.O. Signed By: 09/23/24 1549 DD/ 1546 TD/TT: Project Coordinator:TBHRadiology, Radiologist, - 09/23/2024 [place] [id number] XRay Report Signed Patient: CAS CALHOUN MR#: [id number] : 1980 Acct:[id number] Age/Sex: 44 / M ADM Date: 09/23/24 Loc: RAD Attending Dr: Jeanette Castro NP Ordering Physician: Jeanette Castro NP Date of Service: 09/23/24 Procedure(s): XR lumbar spine 6V w bending Accession Number(s): [id number] cc: Jeanette Castro MATHEMATICS TECHNICIAN; ADELITA EPPERSON [place] [address] Patient Name: CAS CALHOUN MRN: [id number] date: 1980 Sex: M Assigned Patient Location: [facility] Current Patient Location: [facility] Accession/Order Number: [id number] Exam Date: 09/23/2024 15:44 Report Date: 09/23/2024 [...] Salazar M.D. 09/23/2024 3:46 PM Dictation Location: [place] [address] Electronically authenticated by: [id number] Y Date: 09/23/2024 15:46 Dictated By: Pelon Salazar D.O. Signed By: 09/23/24 1549 DD/ 154 TD/TT: Project Coordinator: [facility] HealthcareRadiology Study observation (narrative)[facility] HealthcareXR LUMBAR SPINE 6V W BENDINGOrdered By: Radiologist Radiology on 74-06-0241[facility] Work Phone: alanine aminotransferase [Enzymatic activity/volume] in Serum or PlasmaOrdered By: Manjinder Lynn on 25-73-2711NMY [Catalytic activity/Vol]29 U/L7-52[facility] HospitalAlbumin [Mass/volume] in Serum or Plasma by Bromocresol green (BCG) dye binding methoOrdered By: Manjinder Lynn on 11-63-0673Bghuifo BCG dye [Mass/Vol]4.6 g/dL3.5-5.7FTrinity Health System East CampusAlkaline phosphatase [Enzymatic activity/volume] in Serum or PlasmaOrdered By: Manjinder Lynn on 76-05-8284QTH [Catalytic activity/Vol]75 U/L 34-104Lutheran HospitalAspartate aminotransferase [Enzymatic activity/volume] in Serum or PlasmaOrdered By: Manjinder Lynn on 68-20-5545ONY [Catalytic activity/Vol]20 U/L41-82LwdmwnoojLutheran HospitalBasophils Auto (Bld) [#/Vol]Ordered By: Manjinder Lynn on 52-00-8612Vmkadjhaa (Bld) [#/Vol] 0.1 10*3/uL0.0-0.2FTrinity Health System East CampusBasophils/100 WBC Auto (Bld) Ordered By: Manjinder Lynn on 16-61-1005Ybvjtlcen/100 WBC (Bld)1.1 %.Lutheran HospitalBilirubin.total [Mass/volume] in Serum or PlasmaOrdered By: Manjinder Lynn on 98-23-0355Lkovlmisy [Mass/Vol]1.3 mg/dL0.3-1.0L[facility]an HospitalComment on above:Samples from patients who have taken Naproxen have shown spurious elevation in Total Bilirubin levels. A metabolite of Naproxen, O-desmethylnaproxen, has been shown to interfere with the Ninoska method for measuring Total Bilirubin.Calcium [Mass/volume] in Serum or PlasmaOrdered By: Manjinder Lynn on 27-38-0163Rhoaivy [Mass/Vol]9.5 mg/dL8.6-10.3[facility] Medical CenterCarbon dioxide, total [Moles/volume] in Serum or PlasmaOrdered By: Manjinder Lynn on 29-07-3121OC5 [Moles/Vol]27.6 mmol/L21.0-31.0[facility] HospitalChloride [Moles/volume] in Serum or PlasmaOrdered By: Manjinder Lynn on 50-74-3642Hsqlnrfl [Moles/Vol]103 mmol/P76-000JbjzbbxauLutheran HospitalCreatinine [Mass/volume] in Serum or PlasmaOrdered By: Manjinder Lynn on 09-03-2023 Creatinine [Mass/Vol]1.22 mg/dL0.70-1.30[facility] Eosinophils Auto (Bld) [#/Vol]Ordered By: Manjinder Lynn on 95-02-4886Oamzllrwzsa (Bld) [#/Vol]0.4 10*3/uL0.0-0.45[facility] Eosinophils/100 WBC Auto (Bld)Ordered By: Mnajinder Lnyn on 09-03-2023 Eosinophils/100 WBC (Bld)4.9 %.[facility]an HospitalErythrocyte distribution width Auto (RBC) [Ratio]Ordered By: Manjinder Lynn on 09-03-2023 Erythrocyte distribution width (RBC) [Ratio]13.4 %12.0-14.8L[facility] HospitalGlobulin Calc (S) [Mass/Vol]Ordered By: Manjinder Lynn on 79-45-3601Xcqzifvs (S) [Mass/Vol]2.2 g/dLLutheran Hospital Glucose [Mass/volume] in Serum or PlasmaOrdered By: Manjinder Lynn on 09-03-2023 Glucose [Mass/Vol]117 mg/mD20-252KcpaniwzuLutheran HospitalComment on above:ADA recommended reference rangeRandom Glucose Reference Range is dependent on time and content of last meal. Glucose of more than 200 mg/dL in a nonstressed, ambulatory subject supports the diagnosisof Diabetes Mellitus. Hematocrit Auto (Bld) [Volume fraction]Ordered By: Manjinder Lynn on 09-03-2023 Hematocrit (Bld) [Volume fraction]43.4 %38.8-50.0[facility] HospitalHemoglobin [Mass/volume] in BloodOrdered By: Manjinder Lynn on 09-03-2023 Hemoglobin (Bld) [Mass/Vol]15.1 g/dL13.0-17.0[facility] Leukocytes [#/volume] corrected for nucleated erythrocytes in Blood by Automated counOrdered By: Manjinder Lynn on 00-31-7032GSL corrected for nucl RBC Auto (Bld) [#/Vol]9.2 10*3/uL4.1-10.5FTrinity Health System East CampusLymphocytes Auto (Bld) [#/Vol]Ordered By: Manjinder Lynn on 86-45-7990Lzmtaatbpbl (Bld) [#/Vol]3.5 10*3/uL1.00-4.8L[facility]an HospitalLymphocytes/100 WBC Auto (Bld)Ordered By: Manjinder Lynn on 43-85-5996Lurzkdvlnfv/100 WBC (Bld)38.0 % .[facility]utheran HospitalMCH Auto (RBC) [Entitic mass]Ordered By: Manjinder Lynn on 28-60-7350NRI (RBC) [Entitic mass]30.6 pg27.5-35.2FTrinity Health System East CampusMCHC Auto (RBC) [Mass/Vol]Ordered By: Manjinder Lynn on 82-64-6047PUBA (RBC) [Mass/Vol]34.7 g/dL32.5-35.6FTrinity Health System East CampusMCV Auto (RBC) [Entitic vol]Ordered By: Manjinder Lynn on 79-31-9453UKI (RBC) [Entitic vol]88.2 fL83.5-101L[facility]an HospitalMonocytes Auto (Bld) [#/Vol]Ordered By: Manjinder Lynn on 01-41-9967Hyqqbatag (Bld) [#/Vol] 0.7 10*3/uL0.0-0.8L[facility]an HospitalMonocytes/100 WBC Auto (Bld) Ordered By: Manjinder Lynn on 42-93-5976Rpqtrywja/100 WBC (Bld)7.1 %.Lutheran HospitalNeutrophils Auto (Bld) [#/Vol]Ordered By: Manjinder Lynn on 39-85-8604Omfsgdgbjcp (Bld) [#/Vol]4.5 10*3/uL1.8-7.7FTrinity Health System East CampusNeutrophils/100 WBC Auto (Bld)Ordered By: Manjinder Lynn on 60-67-4429Wlkroplndok/100 WBC (Bld)48.9 %.[facility]an HospitalNo Panel InformationOrdered By: Manjinder yLnn on 42-02-6095Wddepsctr GFR (CKD-EPI)> 60.0 mL/MinLutheran HospitalPharmacy Creatinine Clearance (Chem N/AFTrinity Health System East CampusNucleated erythrocytes [Presence] in Blood by Automated countOrdered By: Manjinder Lynn on 94-89-3540Hhuvdrijx RBC Auto Ql (Bld)0.2 /100{WBC}0-0.5FTrinity Health System East CampusPlatelet mean volume Auto (Bld) [Entitic vol]Ordered By: Manjinder Lynn on 86-82-5267Safddpwi mean volume (Bld) [Entitic vol]9.6 fL6.6-10.1FTrinity Health System East Campus Platelets Auto (Bld) [#/Vol]Ordered By: Manjinder Lynn on 37-91-8241Kiskvfhbm (Bld) [#/Vol]230 10*3/zC093-179QwsrekkqtLutheran HospitalPotassium [Moles/volume] in Serum or PlasmaOrdered By: Manjinder Lynn on 09-03-2023 Potassium [Moles/Vol]4.0 mmol/L3.5-5.1FTrinity Health System East CampusProtein [Mass/volume] in Serum or PlasmaOrdered By: Manjinder Lynn on 64-64-6540Qxbwqlr [Mass/Vol]6.8 g/dL6.4-8.9L[facility] HospitalRBC Auto (Bld) [#/Vol] Ordered By: Manjinder Lynn on 12-14-9391XGZ (Bld) [#/Vol]4.92 10*6/uL3.90-5.60 [facility] Healtherum or plasma albumin/globulin mass ratio Ordered By: Manjinder Lynn on 90-06-5119Juzhdpj/Globulin [Mass ratio]2.1 {ratio} [facility] Healtherum or plasma anion gap determinationOrdered By: Manjinder Lynn on 87-20-5020Nubbn gap [Moles/Vol]11.4 mmol/L6.0-15.0Kettering Healthodium [Moles/volume] in Serum or PlasmaOrdered By: Majninder Lynn on 06-93-3176Wxuuku [Moles/Vol]138 mmol/J253-676UdxgppwqaLutheran HospitalUrea nitrogen [Mass/volume] in Serum or PlasmaOrdered By: Manjinder Lynn on 76-14-3072Zkrl nitrogen [Mass/Vol]11 mg/dL7-25Lutheran HospitalWBC Auto (Bld) [#/Vol]Ordered By: Manjinder Lynn on 61-52-5052PJG (Bld) [#/Vol]9.2 10*3/uL4.1-10.5FTrinity Health System East CampusComplete Blood Counton 67-95-5241Pkvujnzobwv distribution width (RBC) [Ratio]13.0 %Normal 11.0-15.0[facility] SpecialistComment on above:Performed By: #### LIPD, CBC, CMP #### [facility] [address] [place], [place] [id number] (Bld) [Volume fraction]46.2 %Sulkjq48.5-50.0 [facility] SpecialistComment on above:Performed By: #### LIPD, CBC, CMP #### [facility] [address] [facility], [place] [id number] (Bld) [Mass/Vol]15.6 g/vIYkxodz88.0-17.1[facility] SpecialistComment on above:Performed By: #### LIPD, CBC, CMP #### [facility] [address] [facility], [place] [id number] (RBC) [Entitic mass]29.[address] v[address]Vfshuk69.0-33[address]Mount [address] Mary Hospital SpecialistComment on above:Performed By: #### LIPD, CBC, CMP #### [facility] [address] [place], [place] [id number] (RBC) [Mass/Vol]33.8 g/pAHmmrea83.0-36.0NortSamaritan Hospital SpecialistComment on above:Performed By: #### LIPD, CBC, CMP #### [facility] [address] [place], [place] [id number] (RBC) [Entitic vol]88 kPQkaqpy87-815Nqmgwcca [facility] SpecialistComment on above:Performed By: #### LIPD, CBC, CMP #### [facility] [address] [place], [place] [id number] mean volume (Bld) [Entitic vol]11.20 fLNormal 7.50-12.50NortSamaritan Hospital SpecialistComment on above:Performed By: #### LIPD, CBC, CMP #### [facility] [address] [place], [place] [id number] (Bld) [#/Vol]231 10*3/kFNwfxfs055-388Jtqluhhs [facility] SpecialistComment on above:Performed By: #### LIPD, CBC, CMP #### [facility] [address] [place], [place] [id number] (Bld) [#/Vol]5.24 10*6/uLNormal4.20-5.80[facility]ortSamaritan Hospital SpecialistComment on above:Performed By: #### LIPD, CBC, CMP #### [facility] [address] [place], [place] [id number]-GF64.1 uCWbmwyw23.0-50.0NortSamaritan HospitalField Tech Comment on above:Performed By: #### LIPD, CBC, CMP #### [facility] [address] [place], [place] [id number] (Bld) [#/Vol]9.2 10*3/uLNormal3.8-11.0[facility]Sam[facility] SpecialistComment on above:Performed By: #### LIPD, CBC, CMP #### [facility] [address] [place], [place] [id number] Metabolic Panelon 15-71-8004Fuuipyt [Mass/Vol] 4.7 g/dLNormal3.6-5.1[facility] SpecialistComment on above:Performed By: #### LIPD, CBC, CMP #### [facility] [address] [place], [place] [id number]/Globulin [Mass ratio]2.4 {ratio}Normal1.0-2.5NoMount St. Mary Hospital SpecialistComment on above:Performed By: #### LIPD, CBC, CMP #### [facility] [address] [place], [place] [id number] [Catalytic activity/Vol]76 U/CKpsfwc75-902Ekzvnijr [facility] SpecialistComment on above:Performed By: #### LIPD, CBC, CMP #### [facility] [address] [place], [place] [id number] [Catalytic activity/Vol]52 U/LHigh9-46NoMount St. Mary Hospital SpecialistComment on above:Result Comment: 03/28/2021 Female reference range changed.Performed By: #### LIPD, CBC, CMP #### [facility] [address] [place], [place] [id number] gap [Moles/Vol]18 mmol/DDdjkku28-27Lracmtxu [facility] SpecialistComment on above:Result Comment: Effective 05/03/2019 reference range changed.Performed By: #### LIPD, CBC, CMP #### [facility] [address] [place], [place] [id number] [Catalytic activity/Vol]36 U/KVsukbl74-07Vucgeatp [facility] SpecialistComment on above:Performed By: #### LIPD, CBC, CMP #### [facility] [address] [place], [place] [id number] [Mass/Vol]1.27 mg/dLHigh0.30-1.20NoMount St. [facility] SpecialistComment on above:Performed By: #### LIPD, CBC, CMP #### [facility] [address], [place] [id number]/CREA10 RatioNormal6-22NoMount St. [facility] Specialist Comment on above:Performed By: #### LIPD, CBC, CMP #### [facility] [address] [place], [place] [id number] [Mass/Vol]9.6 mg/dLNormal8.6-10.2[facility] SpecialistComment on above:Performed By: #### LIPD, CBC, CMP #### [facility] [address] [place], [place] [id number] [Moles/Vol]104 mmol/CZvfcin54-194Yasqdzpy [facility] SpecialistComment on above:Performed By: #### LIPD, CBC, CMP #### [facility] [address] [place], [place] [id number] [Moles/Vol]22 mmol/UPsfvqm02-33Fyggxlci [facility] SpecialistComment on above:Performed By: #### LIPD, CBC, CMP #### [facility] [address], [place] [id number] [Mass/Vol]1.0 mg/dLNormal0.7-1.4[facility] SpecialistComment on above:Performed By: #### LIPD, CBC, CMP #### [facility] [address], [place] [id number] mL/min/1.40q1Fufbwn>60Nortbanner [facility] centern [facility] SpecialistComment on above:Performed By: #### LIPD, CBC, CMP #### [facility] [address], [place] [id number] mL/min/1.05s4Tcxobr>60[facility] centern [facility] SpecialistComment on above:Performed By: #### LIPD, CBC, CMP #### [facility] [address] [place], [place] [id number] (S) [Mass/Vol]2.0 g/dLNormal1.9-3.7NortSam[facility] SpecialistComment on above:Performed By: #### LIPD, CBC, CMP #### [facility] [address] [place], [place] [id number] [Mass/Vol]76 mg/xROstooj54-14Zfiujrfh [facility] SpecialistComment on above:Result Comment: For FASTING Glucose --- ADA reference ranges: Normal 65-99 mg/dl Prediabetes 100-125 Diabetes >/= 126Performed By: #### LIPD, CBC, CMP #### [facility] [address], [place] [id number] [Moles/Vol]4.7 mmol/LNormal3.5-5.5NoMount St. [facility] SpecialistComment on above:Result Comment: Specimen is hemolyzed. Results may be affected.Performed By: #### LIPD, CBC, CMP #### [facility] [address], [place] [id number] [Mass/Vol]6.7 g/dLNormal6.1-8.1NorthSelect Medical Specialty Hospital - TrumbullComment on above:Performed By: #### LIPD, CBC, CMP #### [facility] [address], [place] [id number] [Moles/Vol]139 mmol/WQajbtc001-172JwrjcdjoBlanchard Valley Health System [facility]ard Valley HospitalComment on above:Performed By: #### LIPD, CBC, CMP #### [facility] [address], [place] [id number] nitrogen [Mass/Vol]11 mg/dLNormal7-25NoBlanchard Valley Health System Blanch[facility] Valley HospitalComment on above:Performed By: #### LIPD, CBC, CMP #### [facility] [address], [place] [id number] Panelon 82-98-7865Mbqpgpdbnls [Mass/Vol]154 mg/dLNormal 125-200NoMount St. [facility] SpecialistComment on above:Result Comment: Low risk < 200mg/dL Borderline risk 201-239 mg/dl High risk > or equal to 240Performed By: #### LIPD, CBC, CMP #### [facility] [address], [place] [id number] in HDL [Mass/Vol]40 mg/dLLow>40NoMount St. [facility] SpecialistComment on above:Result Comment: High Cardiovascular Risk HDL <40 mg/dL Low Cardiovascular Risk HDL > or equal to 60 mg/dlPerformed By: #### LIPD, CBC, CMP #### [facility] [address], [place] [id number] in LDL [Mass/Vol]88 mg/dLNoPike Community HospitalComment on above:Result Comment: LDL ATP III CLASSIFICATION LDL less than 100 mg/dl Optimal LDL 100-129 mg/dl Near or above optimal LDL 130-159 Borderline high LDL 160-189 High LDL greater than 189 mg/dl Very HighPerformed By: #### LIPD, CBC, CMP #### [facility] [address], [place] [id number] in VLDL [Mass/Vol]26 mg/dLNoSal[facility] SpecialistComment on above:Performed By: #### LIPD, CBC, CMP #### [facility] [address], [place] [id number].total/Cholesterol in HDL [Mass ratio]4 {ratio} NormalNoMount St. [facility] SpecialistComment on above:Performed By: #### LIPD, CBC, CMP #### [facility] [address], [place] [id number] [Mass/Vol]129 mg/wXZnecpt24-586Spjleywg [place] [facility] SpecialistComment on above:Result Comment: TRIG ATPIII CLASSIFICATIONS TRIG less than 150 mg/dl Normal TRIG 150-199 mg/dl Borderline High TRIG 200-500 mg/dl High TRIG greather than 500 mg/dl Very HighPerformed By: #### LIPD, CBC, CMP #### [facility] [address], [place] [id number] MR L-SPINE WO/W CONTRASTon [id number] MR L-SPINE WO/W CONTRASTMRN: [id number] Patient Name: CAS CALHOUN STUDY: MR L-SPINE WO/W CONTRAST; 01/13/2019 10:05 am INDICATION: Radiculopathy, lumbar region. History of laminectomy. Right leg pain and numbness. COMPARISON: None. ACCESSION NUMBER(S): [id number] ORDERING CLINICIAN: ADELITA HENRY TECHNIQUE: Multisequential MR [...] osseous abnormality. Electronically signed by: BJ MUNGUIA MDFulton County Medical CenterXR LUMBAR SPINE (MIN 4 VIEWS)on 18-21-3947ZI LUMBAR SPINE (MIN 4 VIEWS)Radiology exam is complete. No Radiologist dictation. Please follow up with ordering provider. Final resultNormVeterans Health AdministrationRadiology exam is complete. No Radiologist dictation. Please follow up with ordering provider.[facility] Established Visit (Otolaryngology)on 22-13-8244Nexqisszjam Visit (Otolaryngology)Chief ComplaintNew patient suspected cholesteatoma History of Present IllnessHere today for mastoidbowl cleaning and follow up. Denies any interval otologic complaints since last being seen. Recall:37 year old male referred by Dr. Head. [place] was a [place] in [place] had a chronically draining ear and underwent [...] No acute distressVOICE: No hoarseness or other abnormalityRESPIRATION: Breathing comforta lola, no stridorCV: No clubbing/cyanosis/edema in handsRIGHT EAR: Normal external ear and post auricular area, no visible lesions, external auditory canal patent, tympanic membrane with patent tympanostomy tube, small crust along attic area, with retraction, possible early cholesteatoma. 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 Patient Discussion/SummaryWelcome to Dr. Padilla clinic. We are here to assist you through your ENT care at [facility].Dr. Chicas is an Ear surgeon. This means that he specializes in taking care of patients with complex ear probl ems.Dr. Chicas's office number is [phone]. While you may see him at a satellite office, she has a team committed to help meet your healthcare needs at [facility]'s main campus. This number is the most direct way to communicate with the office.Audra is Dr. Padilla school secretary and she answers the office phone [...] involved in your care. These people may includedieticians, social workers, speech therapists, wind field manager, neurologist, and physical therapist. Dr. Chicas will provide these referrals as needed. Please let him know if you would like to request a specific referral.For your convenience, Dr. Chicas sees patients at several [facility] locations including [facility], [facility], and [facility]. Whilewe try to make your appointments as convenient as possible, occasionally a visit to another location may be necessary to provide the best care for you. We look forward to working with you to meet your healthcare goals.Dr. Chicas makes every effort to run on time for your appointments. Therefore, ifyou are more than 30 minutes late unrelated to a scan or another appointment such therapy or audiology, your appointment will need to be rescheduled to another day. We appreciate your understanding. Signatures Electronically signed by : Dale Chicas MD; Mar 02 2018 2:05PM EST (Author)[facility] TouchworksInitial Visit (Otolaryngology)on 36-35-2544Pzepkeo Visit (Otolaryngology)Chief ComplaintNew patient suspected cholesteatoma History of Present [place]lisc2 year old male referred by Dr. Head. When [place] was a child in [place] had a chronically draining ear and underwent amastoidectomy. Dr. Head performed a tympanoplasty for perforation; suspected to have cholesteatoma and thus sent for further evaluation. CT scan shows thickening of soft tissue in left mastoid cavity along anterior bony canal with erosion of underlying bony lining, middle ear clear and ossicles are absent.Audiogram shows left sided moderate CHL at low and high frequencies, normal at 2000 hz.WRS 100% bilaterally. Right type A tympanogram left type B with high volumes. Review of SystemsA comprehensive 10-point review of systems was obtained including constitutional, neurological, HEENT, pu lmonary, cardiovascular, genito-urinary, and other pertinent systems and was negative except as noted in the HPI. Past Medical History No pertinent past medical history Surgical History History of Ear Surgery Family History Family history of diabetes mellitus (V18.0) (Z83.3) Family history of Heartproblem Social History Former consumption of alcohol (V11.3) (Z87.898) Lives with family Smokes cigarettes (305.1) (F17.210) Allergies No Known Allergies Recorded By: Jeri Chacon; 09/29/2017 11:43:10 AM Current Meds No Reported Medications Recorded FRANCES = N; ; Last Updated By: Ginny Singleton; 09/29/2017 11:43:10 AM Vitals Vital Signs Recorded: 29Sep2017 11:23AMHeart Dsiz97Eurhkrij094Nuafjxjnk74Fvpjpf5 ft 2 yuPykibr368 lb BMI Ytcmxprvpc33.65BSA Calculated2.59 Physical ExamCONSTITUTIONAL: No acute distressVOICE: No hoarseness or other abnormalityRESPIRATION: Breathing comfortably, no stridorCV: No clubbing/cyanosis/edema in handsEYES: EOM intact, sclera clearNEURO: Alert [...] visualization to the anterior aspect of the interiorturbinates, no bleeding or drainage, no lesionsORAL CAVITY/OROPHARYNX/LIPS: Normal mucous membranes, normal floor of mouth/tongue/OP, [...] Cholesteatoma of left ear (385.30) (H71.92) Orders Start:Ciprodex 0.3-0.1 % Otic Suspension; INSTILL 3 DROPS IN AFFECTED EARTWICE DAILY FOR 10 DAYS Rx By: Dale Pineda; Dispense: 10 Days ; #:1 X 7.5 ML Bottle; Refill: 0;For: Cholesteatoma of left ear; FRANCES = N; Record; Last Updated By: Jeri Chacon; 09/29/2017 11:43:10 AM Provider ImpressionsLeft CHLLeft cholesteatomaLeft epithelial inclusion cystLeft ossicular discontinuityRecommendations-Debridement every 6 months, epithelial inclusion cyst marsupialized today -Bacitracin soaked cotton ball placed today-Ciprodex drops x10 days-Will reassess in 4-5 months may require further revision/debridement in OR I personally examined and interviewed the patient along with Dr Zambrano. I agree with the plan outlined above. Patient Discussion/SummaryWelcome to Dr. Padilla clinic. We are here to assist youthrough your ENT care at [facility].Dr. Chicas is an Ear surgeon. This means that he specializes in taking care of patients with complex ear problems.Dr. Chicas's office number is [phone]. While you may see him at a satellite office, she has a team committed to help meet your healthcare needs at [facility]'s main campus. This number is the most direct way to communicate with the office.Audra is Dr. Padilla school secretary and she answers the office phone from 8am-4pm Fri-Fri. She can help you with many general questions and information. Questions that she cannot answer will be directed to the appropriate staff. You may need to leave a message. In this case, someone from [facility] will call you back.Jeri is Dr. Padilla primary nurse and can be reached by calling the office. Jeri is in clinic with Dr. Padilla on Mondays, Tuesdays, most Wednesdays, and . Non-urgent calls will be returned on non-clinic days typically Fridays.Sometimes, other team members will also be involved in your care. These people may include dieticians, social workers, speech therapists, wind field manager, neurologist, and physical therapist. Dr. Chicas will provide these referrals as needed. Please let him know if you would like to request a specific referral.For your convenience, Dr. Chicas sees patients at several [facility] locations including [facility], [facility], and [facility]. While we try to make [...] End of Encounter Meds Ciprodex 0.3-0.1 % OticSuspension; INSTILL 3 DROPS IN AFFECTED EAR TWICEDAILY FOR 10 DAYS;Therapy: 29Sep2017 to (Evaluate:1 29Sep2017); Last Rx:29Sep2017; Status: ACTIVE -Retrospective By Protocol Authorization OrderedNormalUH TVSmiles Vital Signs Date TimeVital SignValuePerforming VzfwqfvieXlddbrbv30-71-1927 01:50-0400 Diastolic blood zanfmlei22 mm[Hg]Adelita Epperson MD Work Phone: [address] [place], [place] [address]643810-06-2025 01:50-0400 Heart rate84 /minAdelita Epperson MD Work Phone: [phone]10-06-2025 01:50-0400 Respiratory rate16 /minAdelita Epperson MD Work Phone: [phone]10-06-2025 01:50-0400 SaO2% (BldA) [Mass fraction]98 %Adelita Epperson MD Work Phone: [address] [place], [place] [address]643810-06-2025 01:50-0400 Systolic blood ndivbnhy728 mm[Hg]Adelita Epperson MD Work Phone: [address], [place] [address]643810-06-2025 00:13-0400 Body krrtef239.42 cmRjoao Epperson MD Work Phone: [phone] [place], [place] 9480610-06-2025 00:13-0400 Body jjdzzgvdume22.5 [degF]Adelita Epperson MD Work Phone: [phone] [place], [place] 9480610-06-2025 00:13-0400 Body hjrdef557.07 kgAdelita Epperson MD Work Phone: [phone])[address]04-30-2025 09:36-0400 Diastolic blood vhlcrdno00 mm[Hg]Erin Chirinos MATHEMATICS TECHNICIAN Work Phone: [facility] Fazfupjscl97-22-7068 09:36-0400Heart rate78 /min Erin Chirinos MATHEMATICS TECHNICIAN Work Phone: [facility]oms Sjmzgftglq59-77-2468 09:36-8630QpM2% (BldA) [Mass fraction]98 %Erin Chirinos MATHEMATICS TECHNICIAN Work Phone: noHermann [facility] HospitalXpsnarpgie63-34-2593 09:36-0400Systolic blood ztopocfy650 mm[Hg]Erin Chirinos MATHEMATICS TECHNICIAN Work Phone: noHermann Area District HospitalBpzgttredr14-87-6788 13:01-0400Body nhkegu401 cm Adelita Epperson MD Work Phone: [facility] SystemQnyvpneryk83-89-9045 13:01-0400Body mass index (BMI) [Ratio]36.85 kg/t5IanefiAdelita Epperson MD Work Phone: [facility] SystemDxjssuzemj37-15-5760 13:01-0400Body tbpdky855.18 kgAdelita Epperson MD Work Phone: [facility] SystemEgszsnttla42-58-5355 13:01-0400Diastolic blood iylnfwpi27 mm[Hg]Adelita Epperson MD Work Phone: [facility] SystemFcfvjuezst26-20-7366 13:01-0400Heart rate81 /min Adelita Epperson MD Work Phone: [facility] SystemUnjypevroy43-42-1380 13:01-0902LpN4% (BldA) [Mass fraction]95 %Adelita Epperson MD Work Phone: [facility] SystemGtpxbbogvn29-22-3855 13:01-0400Systolic blood vreakgqr342 mm[Hg]Adelita Epperson MD Work Phone: [facility] SystemYstpbhmqjy29-15-1760 15:36-0500Body kajdrs117 cm Al Marin DO Work Phone: [facility] SystemSqwlytskco46-04-8470 15:36-0500Body mass index (BMI) [Ratio]36.59 kg/m2Paul Biedenbach DO Work Phone: [facility] SystemFcjabrhmnw29-90-6928 15:36-0500Body zookjd931.28 kgPaul Biedenjohn DO Work Phone: [facility] SystemXqpawiwpah34-22-6623 07:58-0500Body kefnhm973 cm Adelita Epperson MD Work Phone: noH[facility] District HospitalCnyxhlrpns23-29-6321 07:58-0500Body mass index (BMI) [Ratio]36.59 kg/h6QhhpxvAdelita Epperson MD Work Phone: noH[facility] District HospitalKglnjksibk09-77-5918 07:58-0500Body bttafb931.28 kgAdelita Epperson MD Work Phone: noH[facility] HospitalRbwstqyrvu33-53-3538 07:58-0500Diastolic blood ifywqbrj39 mm[Hg]Adelita Epperson MD Work Phone: [facility] SystemMhmrxwcgkg42-35-2992 07:58-0500Heart rate90 /min Adelita Epperson MD Work Phone: noH[facility] District HospitalMbjrmjogfb86-21-1962 07:58-7278UlD9% (BldA) [Mass fraction]98 %Adelita Epperson MD Work Phone: noHermann Area District HospitalWzybczcglf62-01-6242 07:58-0500Systolic blood pjxmnzky768 mm[Hg]Adelita Epperson MD Work Phone: [facility] Encounters Encounter DateEncounter TypeCare ProviderFacilityStart: 02-14-2025 End: 27-78-8895nagjmewzswStutfxcSreekanth Luevano MDFacility:[facility] Start: 02-02-2025 End: 33-39-9253Wnpqtkx encounter procedureManjinder Lynn DO-[facility] [address] Work Phone: start: 02-02-2025 End: 80-10-3319odzmaqoeofYvhwmz Hill MD Work Phone: [facility] Work Phone: Start: 01-31-2025 End: 39-01-8501Pzxcoduay department patient visitAdelita Epperson MD Work Phone: [phone]-Qgpbcilax Room Work Phone: Start: 11-23-2024 End: 17-50-4555Wsdbtb Prem Moreno DPM Work Phone: [facility]ryStart: 11-23-2024 End: 00-06-5532Yzizql flowsheetWilfrido Mena-Zayda DPM Work Phone: [facility]ryStart: 11-23-2024 End: 94-10-7893Aqizpr outpatient visit 15 minutesMoprachi Moreno DPM Work Phone: [facility]iatryComment on above:Tinea pedis of both feet (Primary Dx)Start: 11-23-2024 End: 26-63-3471wgzigzautnEZUMHB MACLEAN-BILLYot AvailableStart: 11-15-2024 End: 96-11-0212mceqnuphnkNuawvyi Vytautas Giedraitis MDFacility:[facility] Start: 10-25-2024 End: 44-73-2602liiibmhqasQeroypg Vytautas Giedraitis MDFacility:[facility] [place] Start: 10-11-2024 End: 46-52-5905ekxmnwyjcrVlvewrp Vytautas Giedraitis MDFacility:[facility] [place] Start: 10-08-2024 End: 52-14-0704Dprots flowsheetWilfrido Mena-Christianan DPM Work Phone: [facility] PODIATRYStart: 10-08-2024 End: 23-26-9000Qqjjak flowsheetWilfrido Mena-Zayda DPM Work Phone: noms [facility] PODIATRYStart: 10-08-2024 End: 89-92-2523Xcounh outpatient visit 25 minutesMoprachi Mena-Zayda DPM Work Phone: [facility] PODIATRYComment on above:Ingrown toenail (Primary Dx); Tinea pedis of both feetStart: 10-08-2024 End: 33-77-3261epfclabiocGVKRRK MACLEAN-BILLYot AvailableStart: 09-23-2024 End: 85-09-5445Xhggoaggw Result EncounterGeneric External Data ProviderNOMS External Department UnsolicitedStart: 09-23-2024 End: 54-87-4826Wsbsmyifl Result EncounterGeneric External Data ProviderNOMS External Department UnsolicitedStart: 09-15-2024 End: 22-05-2378Pzhmtk flowsheetMorgan Trina-Beran DPM Work Phone: noms [facility] PODIATRYStart: 09-15-2024 End: 76-96-9501Uefvrt flowsheetMorgan Trina-Beran DPM Work Phone: noms [facility] PODIATRYStart: 09-15-2024 End: 96-69-4798Ndcjrc outpatient visit 25 minutesMorgan Trina-Beran DPM Work Phone: noms [facility] PODIATRYComment on above:Ingrown toenail (Primary Dx); Bilateral foot painStart: 09-15-2024 End: 55-87-3700hkahtupkjvTEBFDZ TRINA-BERANNot AvailableStart: 08-25-2024 End: 95-87-5966Twoijs outpatient visit 15 minutesErin Chirinos MATHEMATICS TECHNICIAN Work Phone: [facility] IMComment on above:Groin abscess (Primary Dx); Cellulitis of groinStart: 08-25-2024 End: 56-00-9550jbyygjtdqmTEPDUG L HILLNot AvailableStart: 08-09-2024 End: 26-57-9674Sencpx outpatient visit 15 minutesAdelita Epperson MD Work Phone: n[facility] IMComment on above:Cellulitis of abdominal wall (Primary Dx); AbscessStart: 08-09-2024 End: 12-14-9993bdxiehyfggCISXOF L HILLNot AvailableStart: 07-05-2024 End: 25-84-3865ttljsyyvvgZpfmgyt Vytautas Giedraitis MDFacility:[facility] Start: 06-15-2024 End: 31-54-2604Skweri outpatient visit 15 minutesAl Marin DO Work Phone: noms [facility] HOSPITALomment on above:History of cholesteatoma (Primary Dx); Chronic mastoiditis of left side; Hearing loss of left ear, unspecified hearing loss typeStart: 06-15-2024 End: 04-15-3624thqfmbguepXCTW Bebeto MARINNot AvailableStart: 05-30-2024 End: 60-16-1854YowblpYtgxix L Hill MD Work Phone: n[facility] IMComment on above:Obesity (BMI 30-39.9) Start: 04-23-2024 End: 70-43-5630pdnbzrinjvFGYR R RISALITINot AvailableStart: 04-07-2024 End: 64-05-7181YfjpdfCvntcl L Hill MD Work Phone: [facility] IMComment on above:Obesity (BMI 30-39.9) Start: 04-05-2024 End: 48-50-8031Spadvm outpatient visit 25 minutesAdelita Epperson MD Work Phone: [facility] IMComment on above:Osteoarthritis of spine with radiculopathy, lumbosacral region (Primary Dx); Severe obesity (BMI 35.0-39.9) with comorbidity (CMS/HCC); BMI 36.0-36.9,adult; Palpitations; Family history of early CAD; Cigarette nicotine dependence without complication; Annual physical exam; Medication managementStart: 04-05-2024 End: 33-19-0359Sxdltfb encounter procedureAdelita Epperson MD Work Phone: noms HealthcareStart: 04-05-2024 End: 04-68-6671ludftniskjSKHVUW L HILLNot AvailableStart: 03-24-2024 End: 29-07-6057AqwoijFuhgjq L Hill MD Work Phone: [facility] IMComment on above:Obesity (BMI 30-39.9) Start: 03-15-2024 End: 49-54-0387dmvrwoptpvYfbaexxMahi Luevano MDFacility:[facility] Start: 03-02-2024 End: 66-42-1686Eddiqi Andrez Epperson MD Work Phone: [facility] IMComment on above:Lumbar paraspinal muscle spasm (Primary Dx); Lumbar radiculopathyStart: 02-10-2024 End: 71-13-8569QndiieRpnk R Risaliti MATHEMATICS TECHNICIAN Work Phone: NOAF SWS IMComment on above:Obesity (BMI 30-39.9) Start: 01-13-2024 End: 18-23-5701SselmdVeizbl L Hill MD Work Phone: n[facility] IMComment on above:Obesity (BMI 30-39.9) Start: 12-09-2023 End: 37-61-7573ihomnptnikRPYS Bebeto Burdick AvailableStart: 09-03-2023 End: 71-78-5911rbywpscjjgTH Adelita Richardton Work Phone: [facility] Work Phone: Start: 09-03-2023 End: 33-35-6756Qwkzgkno ReferredBaptist Health Paduc[facility] Work Phone: [facility] [address] Work Phone: start: 11-14-9230Leapdvmpg encounterMaria Bessy Haley MATHEMATICS TECHNICIAN Work Phone: noms [facility] ORTHOPAEDICSStart: 56-32-5471zklkvjmfkfXS ADELITA EPPERSONFacility:E7Ngwqq: 08-06-2022 End: 28-90-9560dyogfigvprBVMGBSYZKZMT LAKSHMIPATHY .Facility:M5Ypxhg: 07-23-2022 End: 46-35-7434phbjffccdtYTKAOBMCRGIE LAKSHMIPATHY .Facility:I2Nbcap: 03-28-2022 End: 93-71-6992dlgxbbtogeFOOA WELLS .Facility:Y0Fsdqm: 01-03-2022 End: 57-17-7837awasielbuuVKTP WELLS .Facility:Z5Vdnso: 10-04-2021 End: 35-24-5642ffgkstplasZKKL WELLS .Facility:L4Vfshs: 04-10-2020 End: 29-39-2784Hzyhswe encounter procedureRobert [facility] Bone CreekStart: 12-17-2018 End: 90-16-7432Varvxxd encounter procedureROBERT [facility] Start: 12-17-2018 End: 83-43-1358Upinzrfnrf hospital visit by [facility] RadiologyComment on above:Low back pain, unspecified back pain laterality, unspecified chronicity, with sciatica presence unspecifiedStart: 17-80-7746Aahlprl encounter procedureMaroun Tanus SemaanFacility:9479Start: 53-83-9231Euzmoxh encounter procedureMaroun Tanus SemaanFacility:9479 Procedures DateProcedureProcedure DetailPerforming ClinicianStart: 85-64-5596V-ray of both knees, four viewsAdelita Epperson MD Work Phone: Start: 97-21-8121US LUMBAR SPINE 6V W BENDINGGeneric External Data ProviderStart: 35-10-7652Zlflo spine lumbosacral minimum 4 views ADELITA THAPAtart: 32-62-7751Rjjkb spine lumbosacral minimum 4 viewsAdelita Henry Work Phone: Start: 59-19-9469Dvnrml-up visit Plan of Treatment DateCare ActivityDetailAuthorStart: 06-21-2025 End: 61-16-5101Ycuzhew encounter procedureNOMS ENT NORWALKStart: 12-27-2024 Influenza vaccinationNOMN HealthcareStart: 11-23-2024 End: 19-66-4687Krfcadj encounter mxoeuwleh36/29/2025 9:15 AM EDT Office Visit [facility] [address] [place] [address] Wilfrido Moreno DPM [address] [place] [address] [facility] Comment on above:ArrivedStart: 10-11-2024 End: 60-96-9019Wmkvkvt encounter procedureNOMS SWS IMStart: 10-08-2024 End: 43-28-6500Ltqkuob encounter pxwvceyle74/13/2025 9:15 AM EDT Office Visit [facility] [address] [place] [address] Wilfrido Moreno, DPM [address] [place] [address] ArrivedNOMS SWS PODIATRYComment on above: ArrivedStart: 09-29-2024 End: 49-93-9015Iltapep encounter afyesyhgk96/04/2025 8:00 AM EDT Office Visit [facility] [address] [place] [address] Wilfrido Moreno, DPM [address] [place] [address] [facility] SWS PODIATRYStart: 09-15-2024 End: 02-09-7810Bmwuwvn encounter /21/2025 8:00 AM EDT Office Visit [facility] [address] [place] [address] Wilfrido Moreno, DPM [address] [place] [address] ArrivedNOMS SWS PODIATRYComment on above: ArrivedStart: 07-12-2024 End: 73-21-5414Ivxocwa encounter pzfjtlipk36/17/2025 8:45 AM EDT Office Visit [facility] [address] [place] [address] Adelita Epperson MD [address] [place] [address] [facility] SWS IMStart: 06-15-2024 End: 40-44-4877Jiwzycu encounter vxnbfkukg58/18/2025 3:45 PM EST Office Visit [facility] [place] [address] [place] [address] Al Marin, DO [address] [place] [address] [facility]: 44-23-1655Ipmcgvopr vaccination Influenza Vaccine (#1)[facility] HealthcareComment on above:Postponed from 12/28/2023 (Patient Refused)Start: 04-05-2024 End: 36-47-8850Kwfcchl encounter uvlodvaua50/09/2024 8:15 AM EST Office Visit [facility] [address] [place] [address] Adelita Epperson MD [address] [place] [address] [facility] IMStart: 03-11-2024 End: 94-42-4992Eulzwgd encounter /14/2024 3:15 PM EST Office Visit [facility] [address] [place] [address] Al Marin, DO [address] [place] [address] [facility]: 03-02-2024 End: 13-45-9952lnvxnxaxad80/05/2024 10:30 AM EST Evaluation [facility] [address] [place] [address] Antonio Solomon, PT [address] [place] [address] [facility] NM PTStart: 12-28-2023 Influenza vaccinationInfluenza Vaccine (#1)[facility] HealthcareStart: 08-26-2023 End: 73-01-5397Egnurbk encounter pwfgednrw95/30/2024 3:45 PM EDT Office Visit [facility] [place] [address] [facility] [address] Al Marin, DO [address] [place] [address] N[facility] ENT NORJENNIFERKStart: 07-14-2023 End: 82-33-3274Hxjfcep encounter /18/2024 8:45 AM EDT Office Visit [facility] IM [address] [place] [address] Adelita Epperson MD [address] [place] [address] [facility] IMStart: 06-23-2023 End: 75-96-5644Lgqwuar encounter nipxizefv26/26/2024 8:00 AM EST Office Visit [facility] [address] [place] [address] Laurie Haley, MATHEMATICS TECHNICIAN [address] [place] [address] N[facility] CI ORTHOPAEDICSStart: 06-16-2023 End: 78-85-6786slhhdjiqbb29/19/2024 4:15 PM EST Treatment [facility] [address] [facility] [place] [address] Antonio Solomon, PT [address] [facility] [place] [address] N[facility]S NM PTStart: 06-09-2023 End: 78-64-5208yshmdjwega07/12/2024 4:30 PM EST Treatment [facility] [address] [place] [address] Antonio Solomon, PT [address] [facility] [place] [address] [facility] NM PTStart: 06-04-2023 End: 69-56-7459HC Lumbar spine WO contrastMR lumbar spine wo contrast Imaging Routine DDD (degenerative disc disease), lumbar Lumbar herniated disc Expected: 06/04/2023 (Approximate), Expires: 06/04/2024[facility] Work Phone: Comment on above:Expected: 06/04/2023 (Approximate), Expires: 06/04/2024Start: 30-75-6347Ugoakfuse vaccinationInfluenza Vaccine (#1) [facility] SystemStart: 82-69-9679Ufwiyngot vaccinationFlu vaccine (#1)[facility]: 34-14-0512DNuU/Tdap/Td vaccine (1 - Tdap)DTaP/Tdap/Td vaccine (1 - Tdap)[facility]: 57-18-4979DRI screenHIV screenSheltering Arms Hospital: 26-46-1933Txeagjimv Vaccine (1 of 2 - 13+ 2-dose series) Varicella Vaccine (1 of 2 - 13+ 2-dose series)[facility]: 78-98-3285Jxnzbtcgqslh 0-64 years Vaccine (1 of 1 - PPSV23)Pneumococcal 0-64 years Vaccine (1 of 1 - PPSV23)[place], [place]B[facility]ent[facility] metabolic 1998 panel - Serum or PlasmaBasic metabolic panel Lab Routine Annual physical exam Medication management Ordered: 04/05/2024[facility] Work Phone: Comment on above:Ordered: 04/05/2024BC W Auto Differential panel - BloodCBC and differential Lab Routine Annual physical exam Ordered: 04/05/2024[facility] HealthcareComment on above:Ordered: 04/05/2024Hepatic function 1999 panel - Serum or PlasmaHepatic function panel Lab Routine Medication management Ordered: 04/05/2024[facility] HealthcareComment on above: Ordered: 04/05/2024Lipid 1995 panel - Serum or PlasmaLipid panel Lab Routine Severe obesity (BMI 35.0-39.9) with comorbidity (CMS/HCC) Annual physical exam Ordered: 04/05/2024[facility] HealthcareComment on above:Ordered: 12/09/2024Patient EducationLow back pain - ED discharge instructionsPaulding County Hospital [facility]tr Work Phone: Patient referralBlanchard Valley Health [facility] Work Phone: Payers DatePayer CategoryPayerPolicy [id number]-ane [id number] [facility] ..840.967068.1.13.693.2.7.9.079833.193821.94680-31-5781Nnqbfqc 1..840.352904.1.13.693.2.7.3.853727.81310-25-9974Rbqwzfj Health Insurance [id number] Health InsuranceADELINE LR xxxxxxxxxx 2017- Present [phone] [address] [place] [address]vrncnzxric ..840.774363.1.13.239.2.7.3.109[id number] .1.499015.3.579.[id number] .1.601746.3.57[id number] 2.16.840.1.229607.3.57[id number] 2.840.1.821538.3.579.[id number] 2.16840.1.759278.3.579.2.24668-86-7597Tmzwmye0312823 2.840.1.578876.3.579.[id number] 2.840.1.630889.3.579.2.95799-84-5431Dwokucc2699186 2.840.1.010808.3.579.2.31876-55-7443Qcpkndh1059834 2.840.1.881101.3.579.2.10599-54-9869Ulndvai5280495 2.840.1.821683.3.57[id number] 2.840.1.438692.3.57[id number] 2.840.1.569441.3.579.2.903425-07-7715Gzxqgxz1331315 2.0.1.868060.3.579.2.133941-13-9841Gvmmeee8312747 2.840.1.617174.3.579.2.081484-85-4052Qokfedt1478207 2.840.1.833175.3.579.2.757716-99-2371Lswzkvq2517702 2.840.1.206970.3.579.2.486037-58-3461Llhvstf0390676 2.840.1.439285.3.579.2.095801-53-9705Wcoklzw6804411 2.16.840.1.703172.3.579.2.075109-33-2543Rajnpoi6719967 2..840.1.288744.3.579.2.142134-15-9687Ukfryxz5904505 2..840.1.230590.3.579.2.787904-79-4988Qglqumj717818633 2..840.1.997974.3.579.2.[id number] 2.16.840.1.273313.3.579.2.19740-78-8012Yvndonr081437875 2..840.1.346699.3.579.2.68905-37-5087Ahpskzp763266873 2.840.1.923800.3.579.2.55915-31-0687Iltisng842762703 2..840.1.228996.3.579.2.97007-78-6544Nrpiypu018150059 2..840.1.285762.3.579.[id number] / 0000 p077w278-779v-554q-9225-[id number] 2.840.1.1[id number] 2.840.1.472908.3.579.2.531 Social History DateTypeDetailFacilityStart: 01-16-2018 End: 53-90-8406Luvsnsn smoking status NHISCurrent every day smokerSheltering Arms Hospital: 01-16-2018 End: 65-99-5460Nbretgp intakeNoCazen[place], KYSex Assigned At BirthNot on fileSheltering Arms Hospital: 09-38-4680Lsa Assigned At BirthSaint [facility] God [facility] HealthcareStart: 42-04-0355Xuotwwc of tobacco useCigarette SmokerRIVERTON HOSPITAL Healthcare Start: 02-25-2023 End: 13-95-8270Kslpcodbgg smoked current (pack per day) - Reported0.5[facility] HealthcareStart: 02-25-2023 End: 29-15-9705Qkrfktz use and exposureSmokeless tobacco non-userRIVERTON HOSPITAL Healthcare Start: 05-05-2023 End: 73-32-3333Fucrpiw intakeLifetime non-drinker (finding)[facility] HealthcareStart: 83-80-1657Tnueosr Commentcaffeine:Type: energy drink 3-- 16 0z cans per dayRIVERTON HOSPITAL HealthcareStart: 76-98-1424Vxxmhe identityIdentifies as male gender (finding) [facility] HealthcareStart: 09-70-0821Vcyjxw orientationChoose not to discloseRIVERTON HOSPITAL HealthcareStart: 17-19-7273Urlzaes Commentcaffeine:Type: energy drink 1-- 16 0z can per dayRIVERTON HOSPITAL HealthcareSexMale (finding)[facility] Goals DatePatient GoalDesired Activity/State Clinical Notes 10-04-2021 to 11-23-2024 Note Date & XzthAgbbLxgwgtea89-96-8970 History of Present illness Narrative* Wilfrido Moreno, DPM - 11/23/2024 9:15 AM EDT [facility] VISIT CC: F/U Tinea Pedis HPI:Castrace Calhoun is a 44 y.o. male who [...] noted. There is no drainage. There is noerythema. No evidence of ascending cellulitis. No rashes, [...] PRN Wilfrido Moreno DPM documented in this encounterFreeman Health SystemYwjihlxozw62-67-5744 History of Present illness Narrative* Wilfrido Moreno DPM - 10/08/2024 9:15 AM EDT FOOT [...] weeks. Wilfrido Moreno DPM documented in this encounterFreeman Health SystemLrhvosocuv59-16-2123 History of Present illness Narrative* Linda Bolivar MA - 09/15/2024 8:00 AM EDT .LR * Wilfrido Moreno DPM - 09/15/2024 8:00 AM EDT [facility] VISIT CC: Bilateral great toe pain HPI:Cas Calhoun is a 44 y.o. male who presents with complaint of bilateral great toe pain ofthe bilateral foot. Patient states that pain has [...] vomiting, fever, chills, shortness of breath, chest painor calf pain noted. PCP: Adelita Epperson MD [...] this was noted to be the case. Aphenol swab was applied to the nail matrix area and nail border for 3 applications of 10 seconds each. Irrigation was then performed using copious amounts of alcohol. The tourniquet was then releasedand capillary refill to the digit was immediate. Bacitracin and dry sterile dressing was applied. Homegoing instructions were dispensed, including office and custom protection officer contact numbers. A total of 30 minutes was spent in formulation of this note, review of charts, labs, imaging with aminimum of 50% of the time spent in face to face with with the patient. All questions and concerns were answered to the patients satisfaction. documented in this [facility]05-21-2025 Instructions* Patient Instructions* Linda Bolivar MA - 09/15/2024 8:00 AM [...] problems arise, please call the office at [phone]. documented in this [facility]04-30-2025 History of Present illness Narrative* Erin Chirinos NP - 08/25/2024 9:45 AM EDT Images from the original note were not [...] tablet; Take 1 tablet by mouth every 12(twelve) hours for 10 days Dispense: 20 tablet; Refill: 0 2. Groin abscess (Primary) As above. - sulfamethoxazole-trimethoprim (Bactrim DS) 800-160 MG per tablet; Take 1 tablet by mouth every 12(twelve) hours for 10 days Dispense: 20 tablet; Refill: 0 documented in this encounterFreeman Health SystemHplgfrjzho68-20-8642 History of Present illness Narrative* Ileana Regan, AIRCRAFT MAINTENANCE TECHNICIAN - 08/09/2024 1:00 PM EDT Images from the original note were not [...] started on Friday night. The area is redand sore, suggesting a possible abscess or cellulitis. He reports no fever, chills, sweats, cough, shortness of breath, or chest pain. A CAT scan of the abdomen from a year ago was normal. He is advised to start warm compresses and keep the area dry after showering using a blow dryer on a low setting. A prescription for oral antibiotics will be sent to [facility] in [place]. If there is no improvement with oral antibiotics, intravenous antibiotics may be considered. documented in this encounterFreeman Health SystemVrohpkgwri06-68-8934 History of Present illness Narrative* Al Marin, DO - 06/15/2024 3:45 PM EST Subjective Patient ID: Cas Calhoun is a [...] audiogram in 1 year documented in this encounterFreeman Health SystemNulqbuorbz38-38-1488 History of Present illness Narrative* Adelita Epperson MD - 04/05/2024 8:15 AM EST Images from the original note were not included. Cas Calhoun is a 43 y.o. male presents with chief complaint of 6 Month Follow-up (He did nothave lab drawn prior to appointment, order reprinted. /He is feeling good. ) HPI: History of Present Illness Patient presents today for follow up of chronic medical problems. He reports a positive response to Adipex, with his weight decreasing from 305 lbs in 08/2023 to 279lbs as of last Friday. He is due [...] be attributed to premature ventricular contractions (PVCs) orexcessive caffeine intake. He was advised to reduce [...] for the arrival of his baby in July.He has already reduced his smoking to two cigarettes a day. He was encouraged to continue with his plan to quit smoking completely. 6. Annual physical exam - Basic metabolic panel - Lipid panel - CBC and differential 7. Medication management - Basic metabolic panel - Hepatic function panel documented in this [facility]11-27-2024 Telephone encounter Note* Telephone Encounter - Nelli Rico LPN - 03/24/2024 7:51 AM EST Pt requesting a refill on Adipex to [facility] in [place] [facility] Ugqtabizcs91-18-9378 Miscellaneous Notes* Telephone Encounter - Nelli Rico LPN - 03/24/2024 7:51 AM EST Pt requesting a refill on Adipex to [facility] in [place] documented in this [facility]02-06-2024 Telephone encounter Note* Telephone Encounter - Nida Gross - 06/03/2023 2:47 PM EST Pt called back and would like to do MRI at [facility]. [facility] Gykywlsotj96-02-5942 Miscellaneous Notes* Telephone Encounter - Nida Gross - 06/03/2023 2:47 PM EST Pt called back and would like to do MRI at [facility]. documented in this [facility]03-28-2023 NotePAIN MANAGEMENT CONSULTATION CONSULTATION DATE: 07/23/2022 ADDENDUM: The dictation mentions denervation of the L4-5, L5-S1 facet joint under fluoroscopic guidance by using radiofrequency ablation on the left side. The dictation should read: Proceed with radiofrequency ablation of the L2-3, L4-5 levels under fluoroscopic guidance on the left side.[facility] 07-23-2022 NotePAIN MANAGEMENT CONSULTATION CONSULTATION DATE: 07/23/2022 ADDENDUM: The dictation mentions denervation of the L4-5, L5-S1 facet joint under fluoroscopic guidance by using radiofrequency ablation on the left side. The dictation should read: Proceeded with radiofrequency ablation of the L2-3, L4-5 levels under fluoroscopic guidance on the left side.[facility] 07-23-2022 NoteCONSULTATION CONSULTATION DATE: 07/23/2022 TO: Dr. 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 He reports 0/10 [...] the clinic in six months' time for re-evaluation.[facility] 01-03-2022 NoteCONSULTATION CONSULTATION DATE: 01/03/2022 HISTORY OF PRESENT ILLNESS: [...] up in three months' time, unless otherwise indicated.[facility] SystemRilhxulx82-76-0117 NoteCONSULTATION CONSULTATION DATE: 10/04/2021 This is a 41-year-old [...] gluconate 800 mg q.h.s. in addition to gnzn-jrr-qalqamq ibuprofen 600 mg q.a.m. before work. Daily stretching and the use of heat were encouraged to aid with the spasms. We discussed about different vitamin regimens and the patient was willing to try. He will be followed up in the clinic in three months' time unless otherwise indicated. The patient agrees with the plan of care. [facility] Signed and Approved by: SEAN WELLS . 10/11/2021 16:03:00[facility]* Diagnosis DDD (degenerative disc disease), lumbar- Primary Degeneration of lumbar or lumbosacral intervertebral disc Lumbar herniated disc documented in this encounter [facility] HealthcareEvaluation noteNo assessment information availableMiami Valley Hospital Work Phone: Evaluation note* Diagnosis Obesity (BMI 30-39.9) documented in this encounter [facility] HealthcareEvaluation note* Diagnosis Lumbar paraspinal muscle spasm- Primary Other symptoms referable to back Lumbar radiculopathy Thoracic or lumbosacral neuritis or radiculitis, unspecified documented in this encounter [facility]Evaluation note* Diagnosis Lumbar paraspinal muscle spasm- Primary Other symptoms referable to back Lumbar radiculopathy Thoracic or lumbosacral neuritis or radiculitis, unspecified documented in this encounter [facility] HealthcareEvaluation note* Diagnosis Obesity (BMI 30-39.9) documented in this encounter [facility] HealthcareEvaluation note* Diagnosis Osteoarthritis of spine with radiculopathy, lumbosacral region- Primary Severe obesity (BMI 35.0-39.9) with comorbidity ([facility]) BMI 36.0-36.9,adult Palpitations Family history of early CAD Family history of ischemic heart disease Cigarette nicotine dependence without complication Annual physical exam Routine general medical examination at a health care facility Medication management documented in this encounter [facility]Evaluation note* Diagnosis Obesity (BMI 30-39.9) documented in this encounter [facility] note* Diagnosis History of cholesteatoma- Primary Chronic mastoiditis of left side Hearing loss of left ear, unspecified hearing loss type documented in this encounter [facility] note* Diagnosis Cellulitis of abdominal wall- Primary Cellulitis and abscess of trunk Abscess Cellulitis and abscess of unspecified site documented in this encounter [facility] note* Diagnosis Groin abscess- Primary Cellulitis and abscess of trunk Cellulitis of groin Cellulitis and abscess of trunk documented in this encounter [facility]* Diagnosis Ingrown toenail- Primary Ingrowing nail Bilateral foot pain documented in this encounter [facility]* Diagnosis Ingrown toenail- Primary Ingrowing nail Tinea pedis of both feet documented in this encounter [facility]Evaluation note* Diagnosis Tinea pedis of both feet- Primary documented in this encounter [facility] HealthcareReason for referral (narrative)No reason for referral information availableBlanchard Valley Health System [facility] Work Phone: Reason for visit Narrative* Rehabilitation - Outpatient (Routine) - AuthorizedSpecialtyDiagnoses / ProceduresReferred By ContactReferred To ContactPhysical Therapy Diagnoses Lumbar paraspinal muscle spasm Lumbar radiculopathy Procedures [place] OFFICE/OUTPATIENT [facility] MDM 60 MINUTES Adelita Epperson MD [address] [place] [address] Phone: tel: fax: Antonio Solomon, PT [address] [place] [address] Phone: tel: fax: Referral IDStatusReasonStart DateExpiration DateVisits RequestedVisits [id number] Consult and Treat [id number] [facility] Summary Purpose Family History No Family History Records FoundNo Family History Records FoundNo Family History Records FoundNo Family History Records FoundNo Family History Records FoundNo Family History Records FoundNo Family History Records FoundNo Family History Records FoundNo Family History Records Found Advance Directives No Advanced Directives Records FoundDocuments on File TypeDate RecordedPatient RepresentativeExplanationAdvance Directives and Living WillPower of Cell Feed Department Supervisor Advance Directive Response Recorded Date/ Time Advance [...] 02, 2025 8: 38am Reason for Referral SpecialtyDiagnoses / ProceduresReferred By ContactReferred To Contact Diagnoses DDD (degenerative disc disease), lumbar Lumbar herniated disc Procedures MR lumbar spine wo contrast Laurie Haley NP [address] [address] Referral IDStatusReasonStart DateExpiration DateVisits RequestedVisits [id number] Review/ Additional Source Comments (unrecognized sect ion and content) No Status Records FoundNo Status Records FoundNo Status Records FoundNo Status Records FoundNo Status Records FoundNo Status Records FoundNo Status Records FoundNo Status Records FoundNo Status Records Found INFORMATION SOURCE (unrecogn ized section and content) DATE CREATED AUTHOR 04/05/2018 [facility] DATE CREATED AUTHOR AUTHOR'S ORGANIZ ATION 04/05/2018 [employer] DATE CREATED AUTHOR AUTHOR'S ORGANIZ ATION 12/20/2018 [facility] DATE CREATED AUTHOR AUTHOR'S ORGANIZ ATION 01/31/2019 [facility] DATE CREATED AUTHOR AUTHOR'S ORGANIZ ATION 08/08/2021 [facility] DATE CREATED AUTHOR AUTHOR'S ORGANIZ ATION 08/09/2022 [facility] DATE CREATED AUTHOR AUTHOR'S ORGANIZ ATION 11/24/2024 [facility] DATE CREATED AUTHOR AUTHOR'S ORGANIZ ATION 02/14/2025 [facility] DATE CREATED AUTHOR AUTHOR'S ORGANIZ ATION 02/19/2025 [facility] Teams (unrecognized sec tion and content) Team MemberRelationshipSpecialtyStart DateEnd [facility] Adelita Epperson MD [address] [place] [address] PCP - GeneralInternal Medicine11/06/22 Team Status: Active Member Role Status Jairo Epperson MD Primary Care Provider Active Team Status: Inactive Member Role Status Dates Adelita Epperson MD Primary Care Provider Active St art: September 03, 2023 End: September 03, 2023Edpiper Lynn Jr, DOAttending ProviderActiveStart: September 03, 2023 End: September 03, 2023Team MemberRelationshipSpecialtyStart DateEnd [facility] Adelita Epperson MD [address] [place] [address] PCP - GeneralInternal Medicine11/06/22 Adelita Epperson MD [address] [place] [address] PCP - [place] [employer]06/27/23Team MemberRelationshipSpecialtyStart DateEnd Adelita Merino MD [address] [place] [address] PCP - GeneralInternal Medicine11/06/22 Adelita Epperson MD [address] [place] [address] PCP - [place] [employer]06/27/23Team MemberRelationshipSpecialtyStart DateEnd Adelita Merino MD [address] [place] [address] PCP - GeneralInternal Medicine11/06/22 Adelita Epperson MD [address] [place] [address] PCP - [place] [employer]06/27/23Team MemberRelationshipSpecialtyStart Adelita Epperson MD [address] [place] [address] PCP - GeneralInternal Medicine11/06/22 Adelita Epperson MD [address] [place] [address] PCP - [place] [employer]06/27/23Team MemberRelationshipSpecialtyStmartin Adelita Epperson MD [address] [place] [address] PCP - [facility]11/06/22 Adelita Epperson MD [address] [place] [address] PCP - [place] [employer]06/27/23Te MemberRelationshipSpecialtyStmartin Adelita Epperson MD [address] [place] [address] [facility] Adelita Epperson MD [address] [place] [address] PCP - [place] [employer]06/27/23Team MemberRelationshipSpecialtyStart Adelita Epperson MD [address] [place] [address] PCP - GeneralInternal Medicine11/06/22 Adelita Epperson MD [address] [place] [address] PCP - [place] [facility]06/27/23Team MemberRelationshipSpecialtyStart DateEnd Date Adelita Epperson MD [address] [place] [address] PCP - GeneralInternal Medicine11/06/22Team MemberRelationshipSpecialtyStart Date End Date Adelita Epperson MD [address] [place] [address] PCP - GeneralInternal Medicine11/06/22Team MemberRelationshipSpecialtyStart Date End Date Adelita Epperson MD [address] [place] [address] PCP - GeneralInternal [facility]11/06/22Team MemberRelationshipSpecialtyStart Date End Date Adelita Epperson MD [address] [place] [address] PCP - GeneralInternal [facility]11/06/22Team MemberRelationshipSpecialtyStart Date End Date Adelita Epperson MD [address] [place] [address] PCP - GeneralInternal [facility]11/06/22 Team Status: Inactive Member Role Status Dates Adelita Epperson MD Primary Care Provider Active St art: January 31, 2025 End: January 31, 2025GeGuerrero Hodge ProviderActiveStart: January 31, 2025 End: January 31, 2025 Team Status: Inactive Member Role Status Dates Adelita Epperson MD Primary Care Provider Active St art: February 02, 2025 End: February 02, 2025Edpiper Lynn Jr, DOAttending ProviderActiveStart: February 02, 2025 End: February 02, 2025 Goals (unrecognized section and content) Goals may be documented in a n alternate sectionGoals may be documented in an alternate section Reason for Visit (unrecogniz ed section and content) ReasonOnset DateCommentsMed Nknjkl054ReasonOnset DateCommentsMed Refill 7089MrlkncVmurspai4 Month Follow-upHe did not have lab drawn prior to appointment, order reprinted. He is feeling good.ReasonOnset DateCommentsMed Qcgwrd424ReasonOnset DateCommentsMed Lrxxvv294ReasonOnset Date CommentsMed Bhsqng4805/30/2024ReasonCommentsMastoid CleaningReasonCommentsMass Noticed over the weekend, hard bump on abdomen, which is getting worse/bigger. ReasonCommentsCellulitis follow-upPt was seen in office 08/09/2024. Prescribed Bactrim bid for 7 days [...] BE BASED ON THE PRIMARY CLINICAL RECORDS. [employer] provides no warranty or guarantee of the accuracy or completeness of information in this document.
--- OUTSIDE RECORDS SUMMARY | 2025-02-23 07:45 | XMS_ITS | Clinical Summary ---
Author Organization [facility] Address [address] [place] [address] Phone Care Team Providers Care Cotton Roll Packer Name Role Phone Paulino Paez MD Primary Care Provider [phone] Social History Tobacco UseTypesPacks/DayYears UsedDateSmoking Tobacco: Never AssessedSex and Gender InformationValueDate RecordedSex Assigned at BirthNot on fileLegal Sex Male03/23/2022 8:44 PM ESTGender IdentityNot on fileSexual OrientationNot on file Plan of Treatment Not on file Care Teams Team MemberRelationshipSpecialtyStart DateEnd Date Paulino Paez MD [address] [place] [phone] PCP - General09/29/17
--- OUTSIDE RECORDS SUMMARY | 2025-02-23 07:45 | XMS_ITS | Clinical Summary ---
Author Organization [facility] Address [address], [address] [place] [address] Care Team Providers Care User Interface Engineer Name Role Phone Paulino Paez MD Primary Care Provider Allergies No known active allergies Medications MedicationSigDispense QuantityRefillsLast FilledStart DateEnd DateStatus naproxen (NAPROSYN) 375 MG tablet Take 375 mg by mouth as needed for PainActive HYDROcodone-acetaminophen (NORCO) 5-325 MG per tablet 05/27/2017Active Active Problems ProblemNoted DateDiagnosed DateLumbosacral spondylosis without myelopathy 06/24/2017 Social History Tobacco UseTypesPacks/DayYears UsedDateSmoking Tobacco: Every DaySmokeless Tobacco: NeverAlcohol UseStandard Drinks/WeekCommentsNo0 (1 standard drink = 0.6 oz pure alcohol)Sex and Gender InformationValueDate RecordedSex Assigned at BirthNot on fileLegal OcfVrmw5905/16/2017 3:56 PM ESTGender IdentityNot on file Sexual OrientationNot on file Last Filed Vital Signs Vital SignReadingTime TakenCommentsBlood Bwwuxdaq870/8709 10:38 AM EDT Kvhkv3554 10:38 AM JEMGtlequcingo59.3 ??C (97.4 ??F)01/16/2018 10:12 AM EDTRespiratory Ndgh3795 10:12 AM EDTOxygen Saturation--Inhaled Oxygen Concentration--Eilnej824.1 kg (300 lb)01/16/2018 10:12 AM SGDXkgime136 cm (6' 2 )01/16/2018 10:12 AM EDTBody Mass Index38.52001/16/2018 10:12 AM EDT Plan of Treatment Not on file Care Teams Team MemberRelationshipSpecialtyStart DateEnd Paulino Paez MD [facility] - General06/30/17
--- OUTSIDE RECORDS SUMMARY | 2025-02-23 07:45 | XMS_ITS | Clinical Summary ---
Author Organization [facility] Address [address] [place] [address] Care Team Providers Care Developmental Mathematics Instructor Name Role Phone Paulino Paez MD Primary Care Provider [phone] Allergies No known active allergies Medications MedicationSigDispense QuantityRefillsLast FilledStart DateEnd DateStatus Cannabinoids (medical cannabis) Active ibuprofen 800 MG tablet Take 800 mg by mouth every 6 (six) hours if neededActive phentermine (Adipex-P) 37.5 MG tablet Indications:Obesity (BMI 30-39.9)Take 1 tablet (37.5 mg) by mouth in the morning. Take before meals. 90 tablet 5Active Active Problems ProblemNoted DateDiagnosed DateFamily history of early CAD11/07/2022 Overview (11/07/2022): Father MD at age 40. Osteoarthritis of spine with radiculopathy, lumbosacral xphxwc0311/01/2022 Multilevel degenerative disc xkadlbu3411/01/2022onductive hearing loss of left ear with unrestricted hearing of right ear01/14/2017 Resolved Problems ProblemNoted DateDiagnosed DateResolved DateObesity (BMI 30-39.9)02/24/2023 02/24/2023Laryngopharyngeal reflux (LPR)Lumbar radiculopathy Elevated liver fmxpegj03/hronic tnmsvryqosmi89LymphedemaLumbosacral spondylosis without xnybjfsifs89isplacement of lumbar intervertebral disc without tbrbzezbgt27 Encounters DateTypeDepartmentCare GrnnLeonwixepwo13/08/2025Telephone [facility] [address] [place] [address] Inez Munoz MA FMLA11/23/2024 9:15 AM EDTOffice Visit [facility] [place] [facility] [address] [place] [address] Wilfrido Martinez DPM Tinea pedis of both feet (Primary Dx)11/23/2024amboo flowsheet [facility] [address] [place] [address] Wilfrido Martinez DPM 11/23/2024Travelfrom Last 3 Months Family History Medical HistoryRelationNameCommentsDiabetesFatherrayHeart attackFatherrayHeart diseaseFatherrayRelationNameStatusCommentsBrotherAliveFatherrayAliveMotherAlive SonAlive Social History Tobacco UseTypesPacks/DayYears UsedDateSmoking Tobacco: Every DayCigarettes0.5 31.8Started: 04/28/1993Smokeless Tobacco: Never Tobacco Cessation:Ready to Q uit: Not Asked; Counseling Given: Not Answered Alcohol UseStandard Drinks/WeekCommentsNever0 (1 standard drink = 0.6 oz pure alcohol)caffeine:Type: energy drink 1-- 16 0z can per dayPHQ-2AnswerDate RecordedPatient Health Questionnaire-2 Pgqng21206/06/2023Sex and Gender InformationValueDate RecordedSex Assigned at AojexVxqw60/15/2023 2:43 PM EDT Legal DkpKgwv5807/10/2022 7:22 PM EDTGender NuvhtaeiLkdi94/15/2023 2:43 PM EDT Sexual OrientationChoose not to qjfuawxn98/15/2023 2:43 PM EDTOccupationIndustry Job Start 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- [employer] , Works full-timeNot on fileNot on fileNot on file Last Filed Vital Signs Vital SignReadingTime TakenCommentsBlood Pfibvydw990/7004 9:36 AM EDT Vmazr139808/25/2024 9:36 AM EDTTemperature--Respiratory Rate--Oxygen Zjtydpwgav66% 08/25/2024 9:36 AM EDTInhaled Oxygen Concentration--Iprrqg445 kg (287 lb) 08/09/2024 1:01 PM EZDMneadb705 cm (6' 2 )08/09/2024 1:01 PM EDTBody Mass Index 36.85008/09/2024 1:01 PM EDT Plan of Treatment DateTypeDepartmentCare Team (Latest Contact Info)Xjezjhatbmr91/08/2025 8:15 AM ESTOffice Visit [facility] [address] [place] [phone] Paulino Paez MD [address] [place] [address] 06/21/2025 3:45 PM ESTOffice Visit [facility] [address] [place] [phone] Al Chi, DO [address] [facility] [place], [place] [phone] Health MaintenanceDue DateLast DoneCommentsInfluenza Vaccine (#1)12/27/2024 Insurance Care Teams Team MemberRelationshipSpecialtyStart DateEnd Paulino Paez MD [address] [place] [address] PCP - GeneralInternal Medicine11/06/22
--- OUTSIDE RECORDS SUMMARY | 2025-02-23 07:45 | XMS_ITS | Clinical Summary ---
Author Organization [facility] Address [facility] [place] [address] Care Team Providers Care Silk Hanger Name Role Phone Unavailable Primary Care Provider Unavailabl e Allergies No known active allergies Medications MedicationSigDispense QuantityRefillsLast FilledStart DateEnd DateStatus ibuprofen (MOTRIN) 800 mg ORAL tablet Take 800 mg by mouth every 6 hours as needed.Active CYCLOBENZAPRINE HCL (FLEXERIL ORAL) Take by mouth. Take 1 tablet every 8 hoursActive oxyCODONE-Acetaminophen (PERCOCET) 7.5-500 mg per tablet Take 1 tablet by mouth every 4 hours as needed.Active naproxen (NAPROSYN) 500 mg tablet Take 1 tablet by mouth twice daily with meals. FOR PAIN. TAKE WITH FOOD. 60 tablet ctive Active Problems ProblemNoted DateDiagnosed DateDisplacement of lumbar intervertebral disc without bmdiizxsky53/29/2010 Social History Tobacco UseTypesPacks/DayYears UsedDateSmoking Tobacco: Every DayCigarettes Smokeless Tobacco: NeverAlcohol UseStandard Drinks/WeekCommentsNot Asked0 (1 standard drink = 0.6 oz pure alcohol)Sex and Gender InformationValueDate RecordedSex Assigned at BirthNot on fileLegal TfnDbwi47/02/2012 8:31 AM EST Gender IdentityNot on fileSexual OrientationNot on file Last Filed Vital Signs Vital SignReadingTime TakenCommentsBlood Fburimdl649/7604 1:30 PM EDT Owhnt6079 1:30 PM EDTTemperature--Respiratory Rate--Oxygen Saturation-- Inhaled Oxygen Concentration--Cjfzvz478.7 kg (275 lb)05/07/2012 2:40 PM EST Vdtqlq643 cm (6' 2 )05/07/2012 2:40 PM ESTBody Mass Index35.31005/07/2012 2:40 PM EST Plan of Treatment Health MaintenanceDue DateLast DoneCommentsAnxiety Svwtqnkkf80/19/1999Depression Nyyyazorz21/19/1999HIV Vmfodnajt69/19/1999Hepatitis C Uoserwojj00/19/1999 DTaP,Tdap,Td Vaccine (1 - Tdap)1999Hepatitis B Vaccine (1 of 3 - 19+ 3- dose series)1999HPV Vaccine (1 - 3-dose SCDM series)2007Lipid Ddyizzwjv53/19/2016Covid-19 Vaccine ( - 2024- season)2024Influenza Vaccine (#1)2024 Insurance
--- NOTE | 2025-02-23 07:54 | PM.CN ---
Consult Note: HPI Data of Consult Patient: known to practice within the last 3 years Consult date: 02/23/25 Requesting Physician: Jeanette Castro NP Primary Care Provider: ADELITA EPPERSON Consult Narrative Reason for consult: low back pain Narrative: Cas Calhoun a pleasant 44 year old male presents for evaluation and management of chronic low back pain, hx of lumbar stenosis and facet arthropathy, unresponsive to > 6 weeks of PT/HEP, heat, ice, tylenol, nsaids. status post left L4-5 L5-S1 TFESI with 50% improvement per pt. noting pain 3/10 pressure sharp in left low back increasing to 4/10 with standing, stretching, getting dressed. denies numbness, tingling, weakness. utilizing zonegran 50mg BID and baclofen 10-20mg bid prn pain/spasms, denies side effects. cc:: CC: Jeanette Castro NP Review of Systems ROS Musculoskeletal Reports: back pain and extremity pain PFSH PFSH Surgical History Hx of tonsillectomy ?Z90.89 - Acquired absence of other organs (ICD-10) History of tympanoplasty ?Z98.890 - Other specified postprocedural states (ICD-10) History of lumbar surgery ?Z98.890 - Other specified postprocedural states (ICD-10) Meds Home Medications and Allergies Home Medications ?Medication ?Instructions ?Recorded ?Confirmed ?Type baclofen 10 mg tablet 10 mg PO .qhs 12/16/23 02/14/25 History zonisamide 50 mg capsule 50 mg PO BID 01/26/25 02/14/25 History Allergies Allergy/AdvReac Type Severity Reaction Status Date / Time No Known Drug Allergies Allergy Verified 11/15/24 09:45 Exam Constitutional Documenting provider has reviewed patient's vital signs: yes Common normals: no apparent distress, oriented x3, healthy appearing, alert and well nourished General appearance: cooperative HENMT Common normals: normocephalic, hearing grossly normal bilaterally and moist oral mucous membranes Head and scalp: normocephalic Eye Common normals: PERRL Pupil: PERRL Neck & C-Spine Common normals: full ROM General: normal visual inspection Chest Common normals: inspection of chest normal Respiratory Common normals: normal respiratory effort, no retractions and no use of accessory muscles Back & Pelvis Lumbar spine/lower back: lumbar ROM normal, pain with ROM, lumbar spinal tenderness Lumbar spinal tenderness location: L2 and L3 and straight leg raise negative bilaterally Sacroiliac joints: SI joints normal Other: strength 5/5 in BLE sensation intact BLE Neuro Common normals: oriented x3 Sensorium/orientation: alert Psych Common normals: mental status grossly normal, thought process normal, cooperative, affect normal, speech normal and activity/motor behavior normal Speech: normal speech Thought process: normal thought process Results Additional Findings Additional findings: If on a controlled substance or opioids, I have checked an [place] report on this patient and there are no aberrancies noted in the prescribing history.??If on a controlled substance or opioid a drug screen was completed and reviewed within the last year, and if there has not been a drug screen completed we ordered one today to monitor higher risk, state monitored pain medication use. As part of providing excellent, safe, comprehensive care, the following was completed at our patient's visit: 1. A medication reconciliation and review to ensure accurate knowledge of current/active medications, including asking our patients to inform us about any lxxv-tox-ptiwqnq medications or herbal remedies/nutritional supplements/alternative remedies. 2. A review to specifically ensure our patients have had annual screening for screening for depression, screening for tobacco use, and screening for unhealthy alcohol use. For concerning screenings had a discussion with the patient, provided patient education, and recommended follow-up with primary care provider when appropriate. If patient noted with a risk of falling, they received education on strength, gait, and balance training to prevent future risk of falling. Portions of this note may have been carried over from the previous visit and updated as appropriate. Please note this office utilizes paper charting in addition to the electronic medical record. A list of current medications, vitals, and PMH is available there as the clinical staff outside of myself do not have access to [employer] charting during the clinic day operations. As part of providing quality comprehensive care the current medications, vitals, and PMH were reviewed in the paper chart. Assessment and Plan Assessment and Plan (1) Lumbar stenosis with neurogenic claudication: Assessment and Plan: The patient has had over 3 months of moderate to severe low back pain with functional impairment and inadequate response to conservative care including NSAIDS (unless there are contraindication such as concurrent blood thinners), multiple oral or topical pain medications, and home exercise program/physical therapy.? Patient has completed >6 weeks of guided home exercise program and/or formal physical therapy program without relief of their symptoms.? The Oswestry Disability Index was completed, and the patient scored a 22%.? (2) Lumbar spondylosis: (3) Myofascial pain: Plan continue zonegran 50mg BID and baclofen 10-20mg bid prn pain/spasms f/u 3 months, sooner if needed
== END 2025-02-23 07:42 | disposition home or self-care (01) ==
LOC: PM 07:42
PROVIDERS: PCP Internal Medicine; Visit Provider Nurse Practitioner
DX: M48.062 Spinal stenosis, lumbar region with neurogenic claudication (principal); M47.816 Spondylosis without myelopathy or radiculopathy, lumbar region; M79.18 Myalgia, other site
CPT/HCPCS: G0463